=== PATIENT | female | born 1940 | race Caucasian/White ===

== ENCOUNTER 2017-04-16 20:57 | Inpatient (IN) | payer MEDICARE, BC ==
[2017-04-16] MEDS ORDERED: NS 0.9% 1000 ML*IV.FLUID IV ONE (21:10)
[2017-04-16] MEDS ORDERED: Piperacillin/Tazobac ADVAN(*) 3.375 GM in NS 0.9% 100 ML* 100 ML IVPB ONE (21:10)
[2017-04-16] MEDS ORDERED: Acetaminophen TAB* 325 MG PO ONE (21:15)
--- OUTSIDE RECORDS SUMMARY | 2017-04-16 21:18 | XMS REPORT ---
:1940 External Reference #:[id number] Author Organization [facility] Address [address] [place] [id number] Phone [phone] Care Team Providers Name Role Phone Daryl Ashford M.D. Primary Care Physician Unavailable Payers Type Date Identification Numbers Payment Provider Subscriber Medicare Primary Effective: Policy Number: Medicare - NGS Elisabeth Collins 2004 [id number] PayID: [id number] [address] [place] [address] Commercial Policy Number: [id number] [place] Plan Elisabeth Collins PayID: [id number] [address] [place] [address] Problems Date Description Provider Status Onset: Deep venous thrombosis Active Onset: Depressive disorder Active Onset: Type 2 diabetes mellitus Active Note: 1984 Onset: Hypercholesterolemia Active Onset: 02/18/2015 History of myocardial infarction Daryl Oreilly M.D. Active Note: 1998 Onset: 02/18/2015 Type 2 diabetes w prolif diabetic Daryl Oreilly M.D. Active rtnop w/o macular edema Onset: 02/18/2015 Presence of intraocular lens Daryl Oreilly M.D. Active Onset: 01/14/2016 Sjogren's syndrome Rhea Miranda, Active O.D. Onset: 01/26/2016 Keratoconjunctivitis sicca, not Rhea Miranda, Active specified as Sjogren's O.D. Onset: 01/26/2016 Diabetes with stable prolif diabetic Rhea Miranda, Active retinopathy, bilateral O.D. Onset: 08/07/2016 Type 2 diab with prolif diab rtnop Daryl Oreilly M.D. Active without macular edema, bi Onset: 02/26/2017 Vitreous hemorrhage Daryl Oreilly M.D. 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 Omeprazole 00/00/ Active Capsules 40mg Unknown [address] DR Furosemide 00/ Active Tablets 40mg Unknown 0000 Metoprolol 00/ Active Tablets 50mg Unknown Tartrate 0000 Aspirin / Active Tablets DR 81mg Unknown 0000 Klor-Con M20 00/ Active Tablets ER 20Meq Unknown 0000 Multi-Vitamin 00/ Active Tablets Unknown Daily 0000 Calcium 600 00// Active Tablets 600mg Unknown 0000 Sertraline HCL 00/ Active Tablets 50mg Unknown 0000 Probiotic 00/ Active Capsules Unknown 0000 Tylenol 8 Hour 00/ Active Tablets ER 650mg Unknown 0000 Lantus / Active Solution 100Unit/ML Unknown 0000 Atorvastatin 0000/ Active Tablets 80mg Breiman, Calcium 0000 Daryl Lazar Patanol 01/25/ Hx Solution 0.1% 5units Instill 1 H16.223 Rhea Kaminski 2015 - Drop Into [place], 01/04/ The O.D. 2016 Affected Eye(S) Twice A Day as Needed Maxitrol 01/13/ Hx Ointment 3.5-20986- 3.500g apply 04/26' M35.01 Rhea Kaminski 2015 - 0.1 m to all [place], 02/06/ lids every O.D. 2016 night at bedtime x 2 weeks Fondaparinux / Hx Solution 7.5mg/0.6M Unknown Sodium 0000 - L 2016 Niaspan / Hx Tablets ER 500mg Unknown 0000 - 10/16/ 2017 Lipitor / Hx Tablets 10mg Unknown 0000 - 2016 Nitrostat / Hx Tablets 0.4mg Unknown 0000 - Sub 2016 Hyoscyamine / Hx Tablets 0.125mg Breiman, Sulfate 0000 - Daryl 01/07/ Cady 2016 Medications Administered in Office Medication Date Status Form Strength Qnty SIG Indications Ordering Provider Avastin Administered Injection Daryl Kaminski Bevacizumab 017 Cady Oreilly Vital Signs Date Vital Result Comment 03/05/2017 BP Systolic 140 mmHg BP Diastolic 75 mmHg Heart Rate 68 /min Respiratory Rate 14 /min 02/26/2017 BP Systolic 143 mmHg BP Diastolic 83 mmHg Heart Rate 58 /min Respiratory Rate 15 /min 02/05/2017 BP Systolic 97 mmHg BP Diastolic 70 mmHg Heart Rate 60 /min Respiratory Rate 12 /min Results Description No Information Procedures Date CPT Code Description Status 03/05/2017 17572 Destruction Retinopathy, Photocoagulation Completed 02/26/2017 31241 Scanning Computerized Opthalmic Diagnostic Posterior Completed Seg Retina 02/26/2017 41572 Est Patient Intermediate Exam Completed 02/05/2017 23671 Injection Intravitreal Of A Pharmacologic Agent Completed 02/01/2017 53812 Est Patient Intermediate Exam Completed 01/11/2017 52573 Scanning Computerized Opthalmic Diagnostic Posterior Completed Seg Retina 01/11/2017 51420 Est Patient Comprehensive Exam Completed 08/07/2016 06578 Scanning Computerized Opthalmic Diagnostic Posterior Completed Seg Retina 08/07/2016 86212 Est Patient Comprehensive Exam Completed 01/26/2016 34295 Est Patient Intermediate Exam Completed 01/14/2016 19372 Est Patient Intermediate Exam Completed 08/20/2015 48724 Scanning Computerized Opthalmic Diagnostic Posterior Completed Seg Retina 08/20/2015 04401 Est Patient Comprehensive Exam Completed 02/18/2015 59123 Scanning Computerized Opthalmic Diagnostic Posterior Completed Seg Retina 02/18/2015 99158 Est Patient Comprehensive Exam Completed 06/19/2014 24191 Fundus Photography With Interpretation And Report Completed 06/19/2014 27515 Est Patient Comprehensive Exam Completed 12/17/2013 53203 Extracapsular Cataract Extraction W/Intraocular Lens Completed 12/10/2013 88545 Cataract Surgery Complex Completed 12/05/2013 75566 Ophthalmic Biometry Completed 12/05/2013 79003 Ophthalmic Biometry Completed 11/19/2013 94958 Est Patient Comprehensive Exam Completed 11/13/2012 50248 Determination Of Refractive State Completed 11/13/2012 83788 Est Patient Comprehensive Exam Completed 11/08/2011 16845 Determination Of Refractive State Completed 11/08/2011 95275 Est Patient Comprehensive Exam Completed 10/06/2010 34219 Determination Of Refractive State Completed 10/06/2010 27780 Est Patient Comprehensive Exam Completed 09/08/2009 28875 Est Patient Comprehensive Exam Completed 09/02/2008 06780 Est Patient Comprehensive Exam Completed 09/02/2008 40870 Determination Of Refractive State Completed 09/05/2007 41215 Determination Of Refractive State Completed 09/05/2007 14073 Est Patient Comprehensive Exam Completed 10/31/2006 99105 Determination Of Refractive State Completed 10/31/2006 63995 Est Patient Comprehensive Exam Completed 10/05/2005 89800 Cancelled Appointment Completed 09/21/2004 95874 Determination Of Refractive State Completed 09/21/2004 78245 Est Patient Comprehensive Exam Completed 02/03/2004 36112 Est Patient Intermediate Exam Completed 08/12/2003 77072 Est Patient Comprehensive Exam Completed Encounters Type Date Location Provider CPT E/M Dx Office Visit 12/05/2013 11:00a Daryl Oreilly MD, Daryl Oreilly, [id number] 366.16 pc Cady 366.16 Office Visit 06/28/2005 8:00a Daryl Oreilly MD, Hernando Lambert M.D. 34540 250.50 pc 362.01 Plan of Care 03/19/2017 - Daryl Oreilly M.D.H43.11 Vitreous hemorrhage, right eyeFollow up :3 Month Follow Up You can expect to have your eyes dilated at your next visit. If Dr. Oreilly orders any additional testing, it may require extra time. We recommend that you bring sunglasses, as dilation drops often make you light sensitive until they wear off. We always recommend you bring someone to drive you home if you are uncomfortable driving with your eyes dilated. If you have any questions before your next visit, feel free to call our office at .
[2017-04-16] MEDS ORDERED: NS 0.9% 1000 ML* 1,000 ML IV ONE (21:28)
[2017-04-16 21:54] LABS: ABS Basophils 0.2 10^3/ul (0-0.2); ABS Eosinophils 0 10^3/ul (0-0.6); ABS Lymphocytes 0.4 10^3/ul (1.0-4.8); ABS Monocytes 0.5 10^3/ul (0-0.8); ABS Neutrophils 15.4 10^3/ul (1.5-7.7); ABS Nucleated RBC 0.01 10^3/ul; Eosinophil % 0.1 % (0-6); Hematocrit 37 % (35-47); Hemoglobin 12.3 g/dl (12.0-16.0); Lymphocyte % 2.6 % (25-47); Mean Corpuscular HGB Conc 33 g/dl (31-36); Mean Corpuscular Hemoglobin 31 pg (27-31); Mean Corpuscular Volume 92 fL (80-97); Mean Platelet Volume 9 um3 (7.4-10.4); Nucleated Red Blood Cells % 0; Platelet Count 100 10^3/ul (150-450); Red Blood Count 3.99 10^6/ul (4.0-5.4); Red Cell Distribution Width 14 % (10.5-15); White Blood Count 16.5 10^3/ul (3.5-10.8)
[2017-04-16 22:06] LABS: INR 1.05 (0.77-1.02)
[2017-04-16 22:07] LABS: EGFR Non-African American 66.1 (>60)
--- NOTE | 2017-04-16 22:14 | RAD ---
INDICATION: Fever. COMPARISON: Comparison is made with a prior chest x-ray study from September 05, 2015. TECHNIQUE: A portable view of the chest was obtained. FINDINGS: The patient appears to be status post coronary artery bypass surgery. There is a multilead transvenous pacemaker present. The heart is within normal limits in size. The lungs are underinflated and clear with more focal elevation of the left hemidiaphragm which is unchanged. No pleural effusion is seen. IMPRESSION: 1. POSTSURGICAL CHANGES. 2. NO EVIDENCE FOR ACUTE DISEASE.
[2017-04-16 22:49] LABS: Urine Appearance Clear; Urine Blood Negative (Negative); Urine Color Yellow; Urine Ketones Negative (Negative); Urine Protein Negative (Negative); Urine Specific Gravity 1.014 (1.010-1.030); Urine Urobilinogen Negative (Negative)
[2017-04-16] MEDS ORDERED: Iodixanol* (CONTRAST) 320 MG/ML 100 ML SDV IV ONE (23:02)
[2017-04-17] MEDS ORDERED: NS 0.9% 1000 ML* 1,000 ML IV ONE (01:15)
[2017-04-17] MEDS ORDERED: metroNIDAZOLE TAB* 250 MG PO ONE (01:16)
--- NOTE | 2017-04-17 01:21 | ED ---
Ant Moise Thomas, scribed for Kalie Mullins MD on 04/16/17 at 2111 . HPI Febrile Illness - HPI Summary HPI Summary: The patient is a 76 year old female with a history of DM brought in by ambulance complaining of a fever at 102 that began this afternoon. Patient additionally complains of generalized malaise, diffuse abdominal pain (2/10), shakiness, and inability to ambulate. Today, the patient ate ham, turkey, mashed potatoes, and apple pie. Patient denies diarrhea and vomiting. The patient did not take any Tylenol or Motrin prior to arrival. - History of Current Complaint Chief Complaint: EDAbdPain Hx Obtained From: Patient Hx Last Menstrual Period: N/A Onset/Duration: Started Hours Ago - onset this afternoon, Still Present Timing: Constant Temperature: 102 F - prior to arrival Current Severity: Mild Pain Intensity: 2 Pain Scale Used: 0-10 Numeric Aggravating Factors: Nothing Alleviating Factors: Nothing Associated Signs and Symptoms: Other: - Fever, generalized malaise, diffuse abdominal pain, shakiness, inability to ambulate; NEGATIVE: vomiting, diarrhea - Allergy/Home Medications Allergies/Adverse Reactions: Allergies Allergy/AdvReac Type Severity Reaction Status Date / Time PACEMAKER AND DEFIBRILATOR Allergy MRI Uncoded 10/01/15 18:30 CONTRINDICATED Home Medications: Home Medications Insulin Glargine [Lantus] 27 unit SUBCUT BEDTIME 04/16/17 [History Confirmed ] Lactobacillus [Probiotic] 1 cap PO BID 04/16/17 [History Confirmed 04/16/17] Sertraline HCl [Zoloft] 50 mg PO DAILY 04/16/17 [History Confirmed 04/16/17] PMH/Surg Hx/FS Hx/Imm Hx Previously Healthy: No Endocrine/Hematology History: Reports: Hx Anticoagulant Therapy - arixtra, Hx Diabetes Denies: Hx Thyroid Disease Cardiovascular History: Reports: Hx Auto Implanted Cardiovert Defib, Hx Cardiac Arrest, Hx Coronary Artery Disease, Hx Deep Vein Thrombosis, Hx Hypercholesterolemia, Hx Hypertension, Hx Pacemaker/ICD, Hx Peripheral Vascular Disease, Other Cardiovascular Problems/Disorders Denies: Hx Congestive Heart Failure Respiratory History: Denies: Other Respiratory Problems/Disorders History: Reports: Hx Kidney Stones - IN THE PAST Denies: Hx Renal Disease Musculoskeletal History: Reports: Hx Arthritis Sensory History: Reports: Hx Contacts or Glasses - Glasses, Hx Hearing Problem - Bilateral hearing loss Denies: Hx Hearing Aid Opthamlomology History: Reports: Hx Contacts or Glasses - Glasses Neurological History: Denies: Hx Dementia, Hx Developmental Delay, Hx Headaches Psychiatric History: Reports: Hx Anxiety, Hx Depression - Cancer History Hx Chemotherapy: No Hx Radiation Therapy: No - Surgical History Surgery Procedure, Year, and Place: pacer;. cabg'99;. right leg bypass;. c section;. cholecystectomy; Hx Anesthesia Reactions: No Infectious Disease History: No Infectious Disease History: Reports: Hx Hepatitis - At age 19 Denies: Traveled Outside the [place] in Last 30 Days - Family History Known Family History: Positive: Other - Patient denies relevant FHx - Social History Lives: With Family Alcohol Use: None Substance Use Type: Reports: None Smoking Status (MU): Former Smoker Type: Cigarettes Amount Used/How Often: 1-2 PPD Length of Time of Smoking/Using Tobacco: 39 YEARS Have You Smoked in the Last Year: No Review of Systems Positive: Fever, Other - Generalized malaise Positive: Abdominal Pain - diffuse. Negative: Vomiting, Nausea Neurological: Other - Shakiness, inability to ambulate All Other Systems Reviewed And Are Negative: Yes Physical Exam - Summary Physical Exam Summary: VITAL SIGNS: Reviewed. GENERAL: Patient is an obese who is lying comfortable in the stretcher. Patient is not in any acute respiratory distress. HEAD AND FACE: No signs of trauma. No ecchymosis, hematomas or skull depressions. No sinus tenderness. EYES: PERRLA, EOMI x 2, No injected conjunctiva, no nystagmus. EARS: Hearing grossly intact. Ear canals and tympanic membranes are within normal limits. MOUTH: Oropharynx within normal limits. NECK: Supple, trachea is midline, no adenopathy, no JVD, no carotid bruit, no c- spine tenderness, neck with full ROM. CHEST: Symmetric, no tenderness at palpation LUNGS: Clear to auscultation bilaterally. No wheezing or crackles. CVS: Regular rate and rhythm, S1 and S2 present, no murmurs or gallops appreciated. ABDOMEN: Soft. She has mild diffuse abdominal tenderness. She has hyperactive bowel sounds. No signs of distention. No rebound no guarding, and no masses palpated. EXTREMITIES: FROM in all major joints, no edema, no cyanosis or clubbing. NEURO: Alert and oriented x 3. No acute neurological deficits. Speech is normal and follows commands. SKIN: Dry and warm Triage Information Reviewed: Yes Vital Signs On Initial Exam: Initial Vitals Temp Pulse Resp BP Pulse Ox 100.3 F 83 16 134/67 100 04/16/17 21:00 04/16/17 21:00 04/16/17 21:00 04/16/17 21:00 04/16/17 21:00 Vital Signs Reviewed: Yes Diagnostics - Vital Signs Vital Signs Temp Pulse Resp BP Pulse Ox 04/16/17 21:00 100.3 F 83 16 134/67 100 - Laboratory Result Diagrams: 04/16/17 21:35 04/16/17 21:35 Lab Statement: Any lab studies that have been ordered have been reviewed, and results considered in the medical decision making process. - Radiology CXR Xray Interpretation: No Acute Changes - 1. POSTSURGICAL CHANGES. 2. NO EVIDENCE FOR ACUTE DISEASE. Dr. Mullins has viewed this report. Radiology Interpretation Completed By: Radiologist - CT CT Abd/Pel CT Interpretation: No Acute Changes - Moderately dilated stomach containing air , fluid and ingested material. No bowel obstruction, colitis, free fluid or free air. Appendix not seen. Diverticulosis colon without acute diverticulitis. Unremarkable pancreas and kidneys. Cholecystectomy. 1.8 cm diameters proximal right superficial femoral artery, question fusiform aneurysm versus vascular graft; nearby surgical clips and inguinal lymph nodes less than 1 cm short axis. Small supraumbilical ventral hernia containing fat. Small right ilioposoas bursal fluid collection, 4.3 x 1.8 x 1.3. Liver dome incompletely seen. AICD. Elevation right hemidiaphragm. Dr. Mullins has reviewed this report. CT Interpretation Completed By: Radiologist Course/Dx - Course Assessment/Plan: The patient is a 76 year old female with a history of DM brought in by ambulance complaining of a fever at 102 that began this afternoon. Patient additionally complains of generalized malaise, diffuse abdominal pain (2/10), shakiness, and inability to ambulate. She has mild diffuse abdominal tenderness. In the ED course the patient was given acetaminophen, IV fluids, and Zosyn. Bloodwork and urinalysis were obtained. The patient has a history of CHF with cardiomyopathy, so we are only going to give her 1 L of normal saline. The patient is hemodynamically stable. CT Abd/ Pel shows Moderately dilated stomach containing air, fluid and ingested material. No bowel obstruction, colitis, free fluid or free air. Appendix not seen. Diverticulosis colon without acute diverticulitis. Unremarkable pancreas and kidneys. Cholecystectomy. 1.8 cm diameters proximal right superficial femoral artery, question fusiform aneurysm versus vascular graft; nearby surgical clips and inguinal lymph nodes less than 1 cm short axis. Small supraumbilical ventral hernia containing fat. Small right ilioposoas bursal fluid collection, 4.3 x 1.8 x 1.3. Liver dome incompletely seen. AICD. Elevation right hemidiaphragm. CXR shows 1. POSTSURGICAL CHANGES. 2. NO EVIDENCE FOR ACUTE DISEASE. The patient is diagnosed with gastroenteritis, hypotension. The patient will be admitted to [facility] by Dr. Atkins. - Diagnoses Provider Diagnoses: Gastroenteritis, Hypotension - Provider Notifications Discussed Care Of Patient With: Ander Atkins Time Discussed With Above Provider: 01:18 Instructed by Provider To: Admit As Inpatient Discharge - Discharge Plan Condition: Fair Disposition: ADMITTED TO [facility] Referrals: Daryl Ashford MD [Primary Care Provider] - The documentation as recorded by the Ant kim Thomas accurately reflects the service I personally performed and the decisions made by , Kalie Mullins MD.
[2017-04-17] MEDS ORDERED: Ondansetron INJ* 2 MG/ML VIAL IV PRN (01:51)
--- NOTE | 2017-04-17 05:12 | HP ---
ADMISSION HISTORY AND PHYSICAL: DATE OF ADMISSION: 04/17/17 PRIMARY CARE PROVIDER: Dr. Ashford. HEALTHCARE PROXY: Her . CODE STATUS: Full. SOURCE OF INFORMATION: History obtained from interview with the patient and her . RELIABILITY: Fair. CHIEF COMPLAINT: Weakness. HISTORY OF PRESENT ILLNESS: This is a 76-year-old female with significant past medical history including 3-vessel CAD, insulin-dependent diabetes mellitus and DVT, currently on anticoagulation with Arixtra, who has been in her usual state of health, generally walks unassisted, went to her daughter's house for Lukas; however, this evening around 5:30 p.m., found that she could not get up from the couch and after standing had difficulty ambulating secondary to weakness. There is no reported confusion or slurring of her speech, no asymmetric nature to the weakness; however, generally felt fatigued. She notes that she had shaking chills, although no recorded fevers, nausea without emesis , no recent cough, shortness of breath, chest pain, headache, or urinary symptoms. She has had no sick contacts and no recent travel. She notes that about a week ago she had 1 episode of diarrhea that then resolved. Two weeks ago, she had a groin infection that improved with topical treatment. She notes the recent addition of medications for her thyroid to her current medication regimen. Otherwise, no changes to her medications. She notes she has been eating and drinking fine. Her last bowel movement was this morning. She had noted no blood in her bowel movements and no black stools. In the emergency room, she received a dose of Zosyn and 1 L of IV fluids. However, her blood pressure was noted to be progressively more hypotensive over the course of her stay. The hospitalist service was consulted for admission. PAST MEDICAL HISTORY: 1. History of permanent pacemaker and AICD. 2. History of V-tach. 3. Two-vessel CABG in 1998. 4. Peripheral vascular disease, status post distal right femoral bypass. 5. Insulin-dependent diabetes mellitus. 6. Ischemic cardiomyopathy. 7. Hypertension. 8. Right lower extremity DVT approximately 5 to 6 years prior. 9. Depression. 10. Percutaneous intervention with a stent to unknown coronary in 2004. 11. Cataract surgery. 12. Recent diagnosis of thyroid "problem," suspected to be hypothyroidism, started on new medication. SOCIAL HISTORY: Quit tobacco in 1998. Smoked a pack and a half for 30 years. No alcohol. Retired, worked at [employer] for 35 years. FAMILY HISTORY: Father with type 2 diabetes, mother with CAD, sister with hypertension and hyperlipidemia. ALLERGIES: No known drug allergies. MEDICATIONS: 1. Thyroid medication unknown, to call medications to the floor this evening after returning home. 2. Probiotic 1 cap twice daily. 3. Zoloft 50 mg daily. 4. Potassium chloride 40 ___meq___ 3 times daily. 5. Omeprazole 40 mg daily. 6. Multivitamin 1 tab daily. 7. Metoprolol 50 mg twice daily. 8. Lantus 27 units in the evening and 30 units in the morning. 9. Hyoscyamine 125 mg 3 times a day. 10. Lasix 80 mg in the morning. 11. Arixtra 7.5 mg subcutaneously daily. 12. Calcium carbonate 600 mg twice daily. 13. Atorvastatin 80 mg in the evening. 14. Aspirin 81 mg daily. 15. Acetaminophen 1000 mg at bedtime. REVIEW OF SYSTEMS: As per HPI, including sudden onset of fatigue and chills with nausea, episode of diarrhea 1 week prior, suspected fungal skin infection in her groin, addition of new medication, otherwise, other systems negative. PHYSICAL EXAMINATION GENERAL: Obese woman, sitting up in bed, interactive, pleasant, no apparent distress, slightly upset about admission to the hospital/disappointed because it is [place]. VITAL SIGNS: When seen by this author, 81/48, heart rate 80, respiratory rate is 12, 96% on room air, T-max in the emergency room is 100.3. HEENT: Oropharynx is clear. She has moist mucous membranes. Her sclerae are anicteric. NECK: She has non-elevated JVD. She had no cervical or supraclavicular lymphadenopathy. LUNGS: Her lungs are clear to auscultation. HEART: She has 2/6 systolic ejection murmur throughout her precordium. ABDOMEN: Her abdomen is soft, nondistended. Tender to palpation throughout, greatest in the midepigastrium and left upper quadrant. EXTREMITIES: Warm and well perfused. She has 1+ lower extremity edema. NEUROLOGIC: She is alert and oriented x3. Her cranial nerves II through XII are intact. PSYCH: She has no apparent anxiety, agitation or depression. DIAGNOSTIC STUDIES/LAB DATA: Data reviewed. CT abdomen and pelvis, prelim read overnight, elevated right hemidiaphragm; status post cholecystectomy; small supraumbilical ventral hernia containing fat; small iliopsoas bursa fluid collection; moderately dilated stomach containing air, fluid, ingested material. No bowel obstruction, colitis, free fluid or free air. Appendix not seen. Diverticulosis, without acute diverticulitis. EKG, left bundle-branch block, unchanged from prior. Chest x-ray, no cardiopulmonary disease, elevated right hemidiaphragm. ASSESSMENT AND PLAN: This is a 76-year-old female with past medical history as outlined above, presenting with sudden onset of weakness associated with chills , leukocytosis and declining blood pressure in the emergency room. 1. Leukocytosis. Received Zosyn in the emergency room. We will continue ceftriaxone empirically until blood cultures are negative. Blood cultures obtained prior to the antibiotics. Recheck CBC in the morning. Lactic acid pending currently. No clear source for active infection including lungs, abdomen, pelvis, urine or skin. Did have low-grade fever, doubt influenza in the absence of cough, myalgias, or continued high fevers. Incidentally noted right iliopsoas bursal fluid collection without associated symptoms. Can be further interrogated in the morning and discussed with Radiology with official read. 2. Abdominal pain with distended abdomen, potentially gastroparesis in the setting of longstanding diabetes, unclear if this is incidental with this type, time. Add on amylase and lipase to ED labs. 3. New thyroid illness. Follow up for PCP records. Check TSH now. 4. Relative hypotension. Continue fluids carefully in the setting of ischemic cardiomyopathy, bolus as needed. Lactic acid pending. The patient is asymptomatic. No evidence of cardiac etiology. PE seems unlikely on full dose anticoagulation. No evidence of active bleeding. Does not seem hypovolemic in the setting of unchanged medications. Treat as indicated and monitor. 5. Type 2 diabetes. Continue insulin. Has not received sliding scale at home , we will hold for now. We will check fingersticks with meals. Can add sliding scale if required. 6. History of DVT, on Arixtra. 7. DVT prophylaxis on Arixtra. [id number]/[facility] #: [id number] [facility]
[2017-04-17 06:47] LABS: ABS Basophils 0 10^3/ul (0-0.2); ABS Eosinophils 0 10^3/ul (0-0.6); ABS Lymphocytes 0.7 10^3/ul (1.0-4.8); ABS Monocytes 0.7 10^3/ul (0-0.8); ABS Neutrophils 16.4 10^3/ul (1.5-7.7); ABS Nucleated RBC 0 10^3/ul; Eosinophil % 0 % (0-6); Hematocrit 32 % (35-47); Hemoglobin 10.5 g/dl (12.0-16.0); Mean Corpuscular HGB Conc 33 g/dl (31-36); Mean Corpuscular Hemoglobin 31 pg (27-31); Mean Corpuscular Volume 93 fL (80-97); Mean Platelet Volume 9 um3 (7.4-10.4); Nucleated Red Blood Cells % 0; Platelet Count 75 10^3/ul (150-450); Red Blood Count 3.44 10^6/ul (4.0-5.4); Red Cell Distribution Width 14 % (10.5-15); White Blood Count 17.8 10^3/ul (3.5-10.8)
[2017-04-17 07:01] LABS: EGFR Non-African American 74.2 (>60)
[2017-04-17] MEDS: Acetaminophen TAB* 325 MG PO PRN ×2 (07:41→21:43)
[2017-04-17] MEDS: Omeprazole CAP* 20 MG PO SCH (07:41)
[2017-04-17] MEDS: cefTRIAXone(*) 1 GM in D5W 50 ML BAG* 50 ML IVPB SCH (07:48)
--- NOTE | 2017-04-17 08:27 | RAD ---
INDICATION: Abdominal pain. Contrast: Administered 110.4 ml of VISIPAQUE 320 mg/ml CT of the abdomen and pelvis was performed after oral or IV contrast administration. Coronal and sagittal reconstructed images were obtained. Comparison is made with previous exam dated October 02, 2011. Lung bases demonstrate no pleural fluid, nodules or masses. Heart is of normal size without evidence of pericardial effusion. Liver is normal in size. No focal lesions or intrahepatic duct dilatation is noted. The pancreas demonstrates no mass or pancreatic duct dilatation although it appears to be atrophic. The spleen is normal in size. The stomach is markedly distended. There are no dilated loops of small bowel noted. No adrenal lesions are noted. The kidneys demonstrate symmetric nephrograms. Small cortical cysts are noted; however, no hydronephrosis is noted in either kidney. Several parapelvic cysts are noted. Atherosclerotic aorta is noted. No dilated loops of bowel are noted. The colon is filled with stool. Atherosclerotic aorta is noted. Mild fusiform dilatation of the right common iliac artery is noted. No dilated loops of bowel are noted. IMPRESSION: Markedly distended stomach. No dilated loops of bowel are noted.
[2017-04-17] MEDS: Metoprolol Tartrate TAB* 50 mg PO SCH ×2 (09:42→21:39)
[2017-04-17] MEDS: Lactobacillus Acidophilu (GG)* 1 CAP CAP PO SCH ×2 (09:42→21:40)
[2017-04-17] MEDS: Sertraline* 50 MG TAB PO SCH (09:42)
[2017-04-17] MEDS: Hyoscyamine TAB* 0.125 MG PO SCH ×3 (09:42→21:40)
[2017-04-17] MEDS: Insulin GLARGINE(*) 1 UNITS UNIT SUBCUT SCH ×2 (09:43→21:29)
[2017-04-17] MEDS: Potassium Chlor TAB* 20 MEQ TAB.ER PO SCH ×3 (09:43→21:41)
[2017-04-17] MEDS: Aspirin EC Low Dose* 81 MG TAB.EC PO SCH (09:43)
[2017-04-17] MEDS: Fondaparinux* 7.5 MG/0.6 ML SYRINGE SUBCUT SCH (09:44)
[2017-04-17] MEDS ORDERED: Vancomycin(*) 1,000 MG in D5W 250 ML BAG* 250 ML IVPB ONE (12:00)
[2017-04-17] MEDS ORDERED: Vancomycin(*) 1,000 MG in NS 0.9% 250 ML* 250 ML IVPB ONE (12:00)
--- NOTE | 2017-04-17 14:28 | PN ---
Subjective Date of Service: 04/17/17 Interval History: Pt had epigastric pain , nausea, but no vomiting and no diarrhea on during dinner, all symptoms resolved Objective Active Medications: Acetaminophen (Tylenol Tab*) 650 mg PO Q4H PRN PRN Reason: FEVER/PAIN Last Admin: 04/17/17 07:41 Dose: 650 mg Aspirin (Aspirin Ec Low Dose*) 81 mg PO DAILY [facility] Last Admin: 04/17/17 09:43 Dose: 81 mg Atorvastatin Calcium (Lipitor*) 80 mg PO BEDTIME [facility] Fondaparinux (Arixtra*) 7.5 mg SUBCUT DAILY [facility] Last Admin: 04/17/17 09:44 Dose: 7.5 mg Hyoscyamine (Anaspaz Tab*) 0.125 mg PO TID [facility] Last Admin: 04/17/17 13:06 Dose: 0.125 mg Ceftriaxone Sodium 1 gm/ (Dextrose) 50 mls @ 200 mls/hr IVPB Q24H [facility] Last Admin: 04/17/17 07:48 Dose: 200 mls/hr Insulin Glargine (Lantus(*)) 27 units SUBCUT BEDTIME [facility] Insulin Glargine (Lantus(*)) 30 units SUBCUT QAM [facility] Last Admin: 04/17/17 09:43 Dose: 30 units Lactobacillus Rhamnosus (Culturelle*) 1 cap PO BID [facility] Last Admin: 04/17/17 09:42 Dose: 1 cap Metoprolol Tartrate (Lopressor Tab*) 50 mg PO BID [facility] Last Admin: 04/17/17 09:42 Dose: 50 mg Omeprazole (Prilosec Cap*) 40 mg PO DAILY@0730 [facility] Last Admin: 04/17/17 07:41 Dose: 40 mg Ondansetron HCl (Zofran Inj*) 4 mg IV Q4H PRN PRN Reason: NAUSEA/VOMITING Potassium Chloride (Klor Con Er Tab*) 40 meq PO TID [facility] Last Admin: 04/17/17 13:06 Dose: 40 meq Sertraline HCl (Zoloft*) 50 mg PO DAILY [facility] Last Admin: 04/17/17 09:42 Dose: 50 mg Vital Signs - 8 hr 04/17/17 04/17/17 04/17/17 07:33 09:42 11:45 Temperature 98.1 F 97.6 F Pulse Rate 63 53 Respiratory 16 16 16 Rate Blood Pressure 119/48 114/56 (mmHg) O2 Sat by Pulse 100 100 Oximetry 04/17/17 04/17/17 13:06 13:07 Temperature Pulse Rate Respiratory 16 16 Rate Blood Pressure (mmHg) O2 Sat by Pulse Oximetry Oxygen Devices in Use Now: None Appearance: 76 yo f in nAD, aAOx3 Eyes: No Scleral Icterus, PERRLA Ears/Nose/Mouth/Throat: NL Teeth, Lips, Gums, Mucous Membranes Moist Neck: NL Appearance and Movements; NL JVP, Trachea Midline Respiratory: Symmetrical Chest Expansion and Respiratory Effort, Clear to Auscultation Cardiovascular: NL Sounds; No Murmurs; No JVD, RRR Abdominal: NL Sounds; No Tenderness; No Distention, No Hepatosplenomegaly Lymphatic: No Cervical Adenopathy Extremities: No Edema, No Clubbing, Cyanosis Skin: No Rash or Ulcers, No Nodules or Sclerosis Neurological: Alert and Oriented x 3, NL Muscle Strength and Tone Result Diagrams: 04/17/17 05:59 04/17/17 05:59 Assess/Plan/Problems-Billing Assessment: 76 yo f with h/o cardiomyopathy, V. Tach, s/p ICD/pacer, CABG, DVT ( on Arixtra), DM, PVD(s/p femoral bypass), R ICA stenosis >70% presents with a episode of generalized weakness, nausea, epigastric pain, no vomiting, no diarrhea - Patient Problems (1) Epigastric pain Comment: and nausea resolved. It possible that pt feelt weak from gastric distention that was noted on CT and increased vagal tone due to it. Blood cx are positive and although it could be contamination, pt has h/o ICD and pacer and will be monitored on empiric Ceftriaxone till tomorow when cx results are fully reported (2) History of ischemic cardiomyopathy Comment: will restart pt's Lasix for aM (3) Hx of deep venous thrombosis Comment: cont Arixtra (4) Hx of type 2 diabetes mellitus Comment: cont Lantus and ISS (5) DVT prophylaxis Comment: Arixtra Status and Disposition: OBV
[2017-04-17] MEDS ORDERED: Dextrose 50% Syringe 50 ML* 25 GM/50 ML SYRINGE IV PUSH PRN (15:01)
[2017-04-17] MEDS: Insulin LISPRO* 1 UNITS UNIT SUBCUT SCH ×2 (17:03→21:31)
[2017-04-17] MEDS: Atorvastatin* 80 MG TAB PO SCH (21:41)
[2017-04-18 06:27] LABS: Hematocrit 34 % (35-47); Hemoglobin 11.2 g/dl (12.0-16.0); Mean Corpuscular HGB Conc 33 g/dl (31-36); Mean Corpuscular Hemoglobin 31 pg (27-31); Mean Corpuscular Volume 93 fL (80-97); Mean Platelet Volume 9 um3 (7.4-10.4); Platelet Count 67 10^3/ul (150-450); Red Blood Count 3.64 10^6/ul (4.0-5.4); Red Cell Distribution Width 14 % (10.5-15); White Blood Count 10.3 10^3/ul (3.5-10.8)
[2017-04-18 06:55] LABS: EGFR Non-African American 101.3 (>60)
[2017-04-18] MEDS: Insulin LISPRO* 1 UNITS UNIT SUBCUT SCH ×4 (07:49→20:46)
[2017-04-18] MEDS: Omeprazole CAP* 20 MG PO SCH (08:02)
[2017-04-18] MEDS: cefTRIAXone(*) 1 GM in D5W 50 ML BAG* 50 ML IVPB SCH (08:02)
[2017-04-18] MEDS: Lactobacillus Acidophilu (GG)* 1 CAP CAP PO SCH ×2 (10:27→20:51)
[2017-04-18] MEDS: Metoprolol Tartrate TAB* 50 mg PO SCH ×2 (10:27→20:50)
[2017-04-18] MEDS: Aspirin EC Low Dose* 81 MG TAB.EC PO SCH (10:27)
[2017-04-18] MEDS: Furosemide TAB* 40 MG PO SCH (10:27)
[2017-04-18] MEDS: Insulin GLARGINE(*) 1 UNITS UNIT SUBCUT SCH ×2 (10:28→20:46)
[2017-04-18] MEDS: Fondaparinux* 7.5 MG/0.6 ML SYRINGE SUBCUT SCH (10:28)
[2017-04-18] MEDS: Sertraline* 50 MG TAB PO SCH (10:28)
[2017-04-18] MEDS: Potassium Chlor TAB* 20 MEQ TAB.ER PO SCH ×3 (10:28→20:51)
[2017-04-18] MEDS: Hyoscyamine TAB* 0.125 MG PO SCH ×3 (10:28→20:50)
--- NOTE | 2017-04-18 13:44 | PN ---
Subjective Date of Service: 04/18/17 Interval History: Pt is feeling well. She has no complaints today. She denies any pain or SOB. Family History: Unchanged from Admission Social History: Unchanged from Admission Past Medical History: Unchanged from Admission Objective Active Medications: Acetaminophen (Tylenol Tab*) 650 mg PO Q4H PRN PRN Reason: FEVER/PAIN Last Admin: 04/17/17 21:43 Dose: 650 mg Aspirin (Aspirin Ec Low Dose*) 81 mg PO DAILY [facility] Last Admin: 04/18/17 10:27 Dose: 81 mg Atorvastatin Calcium (Lipitor*) 80 mg PO BEDTIME [facility] Last Admin: 04/17/17 21:41 Dose: 80 mg Dextrose (D50w Syringe 50 Ml*) 12.5 gm IV PUSH .FOR FS < 60 - SS PRN PRN Reason: FS < 60 Fondaparinux (Arixtra*) 7.5 mg SUBCUT DAILY [facility] Last Admin: 04/18/17 10:28 Dose: 7.5 mg Furosemide (Lasix Tab*) 80 mg PO QAM [facility] Last Admin: 04/18/17 10:27 Dose: 80 mg Hyoscyamine (Anaspaz Tab*) 0.125 mg PO TID [facility] Last Admin: 04/18/17 13:17 Dose: 0.125 mg Ceftriaxone Sodium 1 gm/ (Sodium Chloride) 50 mls @ 200 mls/hr IVPB 0800 [facility] Insulin Glargine (Lantus(*)) 27 units SUBCUT BEDTIME [facility] Last Admin: 04/17/17 21:29 Dose: 27 unit Insulin Glargine (Lantus(*)) 30 units SUBCUT QAM [facility] Last Admin: 04/18/17 10:28 Dose: 30 units Insulin Human Lispro (Humalog*) 0 units SUBCUT ACHS [facility] PRN Reason: Protocol Last Admin: 04/18/17 12:18 Dose: Not Given Lactobacillus Rhamnosus (Culturelle*) 1 cap PO BID [facility] Last Admin: 04/18/17 10:27 Dose: 1 cap Metoprolol Tartrate (Lopressor Tab*) 50 mg PO BID [facility] Last Admin: 04/18/17 10:27 Dose: 50 mg Omeprazole (Prilosec Cap*) 40 mg PO DAILY@0730 [facility] Last Admin: 04/18/17 08:02 Dose: 40 mg Ondansetron HCl (Zofran Inj*) 4 mg IV Q4H PRN PRN Reason: NAUSEA/VOMITING Potassium Chloride (Klor Con Er Tab*) 40 meq PO TID [facility] Last Admin: 04/18/17 13:17 Dose: 40 meq Sertraline HCl (Zoloft*) 50 mg PO DAILY [facility] Last Admin: 04/18/17 10:28 Dose: 50 mg Vital Signs - 8 hr 04/18/17 04/18/17 04/18/17 10:28 12:19 13:17 Respiratory 16 16 16 Rate Oxygen Devices in Use Now: None Appearance: Elderly female sitting in a chair, NAD Eyes: No Scleral Icterus Ears/Nose/Mouth/Throat: Mucous Membranes Moist Respiratory: Symmetrical Chest Expansion and Respiratory Effort, Clear to Auscultation - with few bibasilar crackles Cardiovascular: RRR, No Edema, - - II/ systolic murmur Abdominal: NL Sounds; No Tenderness; No Distention Extremities: No Clubbing, Cyanosis Skin: No Rash or Ulcers, No Nodules or Sclerosis Neurological: Alert and Oriented x 3 Result Diagrams: 04/18/17 06:00 04/18/17 06:00 Assess/Plan/Problems-Billing Dennis is a 76 yo F with a h/o cardiomyopathy, VTach s/p ICD/pacer, CAD, DVT ( on Arixtra), DM, PVD(s/p femoral bypass), R ICA stenosis >70% presents with a episode of generalized weakness, nausea and epigastric pain. - Patient Problems (1) Bacteremia due to group B Streptococcus Current Visit: Yes Status: Acute Code(s): R78.81 - BACTEREMIA SNOMED Code( s): 477871598435 Comment: The patient has 4 of 4 bottles positive for group B strep. ? if secondary to skin infection from a couple weeks ago. Will continue ceftriaxone for now. WBC count has normalized. Will get TTE today and ask for ID consult. Follow up blood cultures tomorrow AM. (2) Type II diabetes mellitus Current Visit: Yes Status: Acute Comment: Sugars are under excellent control. Continue current medication regimen. (3) HTN (hypertension) Current Visit: Yes Status: Acute Code(s): I10 - ESSENTIAL (PRIMARY) HYPERTENSION SNOMED Code(s): 45850232 Comment: BP is under fair control. Continue home dose of metoprolol. (4) History of ischemic cardiomyopathy Current Visit: Yes Status: Chronic Priority: Medium Code(s): Z98.89 - OTHER SPECIFIED POSTPROCEDURAL STATES * DO NOT USE * SNOMED Code(s): 963813385 Comment: Continue lasix. No signs of fluid overload. (5) CAD (coronary artery disease) Current Visit: Yes Status: Acute Code(s): I25.10 - ATHSCL HEART DISEASE OF [place] CORONARY ARTERY W/O ANG PCTRS SNOMED Code(s): 23651942 Comment: No c/o chest pain. Continue metoprolol, ASA and lipitor. (6) Hx of deep venous thrombosis Current Visit: Yes Status: Chronic Priority: Low Code(s): Z86.718 - PERSONAL HISTORY OF OTHER VENOUS THROMBOSIS AND EMBOLISM SNOMED Code(s): 808135486 Comment: Continue Arixtra. (7) DVT prophylaxis Current Visit: Yes Status: Acute Onset Date: 07/05/14 Code(s): FCY0313 - SNOMED Code(s): 936270356 Comment: Arixtra (8) Full code status Current Visit: Yes Status: Acute Priority: Medium Onset Date: 07/05/14 Code(s): Z78.9 - OTHER SPECIFIED HEALTH STATUS SNOMED Code(s): 034385975 Status and Disposition: .
[2017-04-18] MEDS: Nystatin CREAM* 15 GM TUBE TOPICAL SCH ×2 (15:47→20:52)
--- NOTE | 2017-04-18 16:38 | ECHO ---
Patient: JERSON MADRIGAL [facility] Rec#: [id number] : 1940 Date: 04/18/2017 Age: 76y Height: 165.1 cm / 65.0 in Weight: 90.72 kg / 199.9 lbs Sex: F BSA: 1.98 Room#: 401 Admit Date#: 04/18/2017 Type: Inpatient Referring: Abril Adhikari DO Reading: Johanny Barba MD Support Analyst: Melissa Hearn YONI CC: Daryl Ashford MD Transthoracic Echocardiogram Indication: Bacteremia BP: 143/52 HR: 68 Rhythm: NSR Findings History: CAD,s/p CABG,s/p AICD,PVD,ischemic cardiomyopathy,2/6 systolic murmur,HTN,s/p PCI. Current + blood cultures Strep Agalactiae. Technical Comments: The study quality is good. Completed at 1455. Left Ventricle: The left ventricular chamber size is normal. Septal wall hypertrophy is observed. There is global hypokinesis of the left ventricle with minor regional variation. There is moderately decreased left ventricular systolic function. The estimated ejection fraction is 40-45%. Post surgical hypokinesis of the interventricular septum is observed consistent with coronary artery bypass. There is abnormal ventricular septal wall motion consistent with right ventricular pacemaker. The left ventricular diastolic filling pattern is consistent with pseudonormalization. The left ventricular diastolic filling pattern is consistent with both elevated mean left atrial pressure and elevated left ventricular end-diastolic pressure. Left Atrium: The left atrium is moderately dilated. Right Ventricle: The right ventricle is mildly dilated. The right ventricular global systolic function is normal. The septum has abnormal paradoxical motion consistent with RV pacemaker. A pacemaker wire is visualized in the right ventricle. Right Atrium: The right atrial cavity size is normal. A pacemaker wire is visualized in the right atrium. Aortic Valve: The aortic valve is trileaflet. The aortic valve leaflets are mildly thickened. There is a trace of aortic regurgitation. There is no evidence of aortic stenosis. Mitral Valve: There is mitral annular calcification. The mitral valve leaflets are mildly thickened. There is moderate mitral regurgitation. There is no evidence of mitral stenosis. Tricuspid Valve: The tricuspid valve leaflets are normal. There is moderate tricuspid regurgitation. There is evidence of moderate pulmonary hypertension. There is no tricuspid stenosis. Pulmonic Valve: The pulmonic valve appears normal. There is trace to mild pulmonic regurgitation. There is no pulmonic stenosis. Pericardium: The pericardium appears normal. Aorta: There is no dilatation of the ascending aorta. There is no dilatation of the aortic arch. There is no dilation of the aortic root. Pulmonary Artery: The main pulmonary artery appears normal. Venous: The venous system is not well visualized. Conclusions There is global hypokinesis of the left ventricle with minor regional variation. Septal wall hypertrophy is observed. There is moderately decreased left ventricular systolic function. The estimated ejection fraction is 40-45%. The left ventricular diastolic filling pattern is consistent with pseudonormalization with both elevated mean left atrial pressure and elevated left ventricular end-diastolic pressure. The right ventricular global systolic function is normal. No vegetations noted on the pacer wires or the valves. A pacemaker wire is visualized in the right atrium. A pacemaker wire is visualized in the right ventricle. The aortic valve leaflets are mildly thickened with trace aortic regurgitation. There is mitral annular calcification. The mitral valve leaflets are mildly thickened. There is moderate mitral regurgitation. There is moderate tricuspid regurgitation. There is evidence of moderate pulmonary hypertension: 57 mmHg. Compared with prior echo of 08/29/13, EF is stable, AI is new, the degree of MR has increased from mild, the degree of TR has increased from mild an PA pressure has increased from 30 mmHg. Sclerotic valves seen on the prior study. Measurements Name Value Normal Range RVIDd (AP) 2D 2.9 cm (0.9 - 2.6) RVDdMajor (2D) 4.6 cm (2.2 - 4.4) RAd ISD 4CH 3.8 cm (3.4 - 4.9) RA (A4C)W 4.5 cm (2.9 - 4.6) IVSd (2D) 1.2 cm (0.6 - 1) LVPWd (2D) 1 cm (0.6 - 1) LVIDd (2D) 5 cm (3.6 - 5.4) LVIDs (2D) 4 cm - LV FS (2D) 20 % (25 - 45) Aortic Annulus 1.7 cm (1.4 - 2.6) Ao root diameter (2D) 3.1 cm (2.1 - 3.5) Ascending Ao 3.1 cm (2.1 - 3.4) Aortic arch 2.6 cm (1.8 - 3.4) Descending Ao 0.6 cm - LA dimension (AP) 2D 5.3 cm (2.3 - 3.8) LAd ISD 4CH 5.8 cm (2.9 - 5.3) LA ISD 4CH W 4.3 cm (2.5 - 4.5) Name Value Normal Range LA ESV SP 4CH (A/L) 63 ml - LA ESV SP 2CH (A/L) 136 ml - LA ESV BP (A/L) 104 ml - LA ESV BP (A/L) index 52.41 ml/m2 - LA ESV SP 4CH (MOD) 61 ml - LA ESV SP 2CH (MOD) 131 ml - Name Value Normal Range MV E-wave Vmax 1.4 m/sec - MV deceleration time 162 msec - MV A-wave Vmax 0.9 m/sec - MV E:A ratio 1.56 ratio - LV septal e' Vmax 0.04 m/sec - LV lateral e' Vmax 0.08 m/sec - LV E:e' septal ratio 35 ratio - LV E:e' lateral ratio 17.5 ratio - Name Value Normal Range AV Vmax 1.5 m/sec - AV VTI 37.3 cm - AV peak gradient 8.79 mmHg - AV mean gradient 4.31 mmHg - LVOT Vmax 1 m/sec - LVOT VTI 25.2 cm - LVOT peak gradient 4.34 mmHg - LVOT mean gradient 2.1 mmHg - Name Value Normal Range MR Vmax 4.7 m/sec - MR VTI 185 cm - Name Value Normal Range TR Vmax 3.5 m/sec - TR peak gradient 49 mmHg - RAP 8 mmHg - RVSP 57 mmHg - Name Value Normal Range PV Vmax 0.9 m/sec - PV peak gradient 3 mmHg -
[2017-04-18] MEDS: Atorvastatin* 80 MG TAB PO SCH (20:47)
--- NOTE | 2017-04-18 21:22 | CONS ---
CONSULTATION REPORT: DATE OF CONSULT: 04/18/17 REQUESTING PHYSICIAN: Dr. Adhikari. CONSULTING SERVICE: Infectious Disease. REASON FOR CONSULT: Group B strep bacteremia. IMPRESSION: 1. Admitted with rigors and found to have group B strep bacteremia in 4/4 bottles. In the setting of a pacemaker and defibrillator, symptoms have been of brief duration, mostly this is just related to her recent perineal cellulitis; however, seeding of the pacemaker is a consideration. 2. Obesity. 3. Diabetes. 4. Perineal and inguinal cellulitis, treated for candidiasis. RECOMMENDATION: Continue ceftriaxone, will increase to 2 g a day given her body size, as well as a transesophageal echocardiogram. If it is negative, then she should have 2 weeks of ceftriaxone after occurrence of her cultures. If it is positive, if there is a valve or lead vegetation, she should be considered for retraction of the device. HISTORY OF PRESENT ILLNESS: This is a 76-year-old woman with a pacemaker and defibrillator, admitted with rigors. They came on suddenly on while she was at her daughter's. She had a hard time getting off the couch and felt very weak, so they brought her to the hospital. Over the last few weeks, she had been treated for a groin and perineal infection with nystatin with some improvement. She had some nausea when she came to the hospital, that is resolved. Her shaking chills are less frequent and less intense. Blood cultures taken on admission are all positive for group B strep. She was on vancomycin and ceftriaxone, just ceftriaxone now. She had a transthoracic echocardiogram, the results of which are pending. She had a CT of abdomen and pelvis, showed distention of the stomach. A chest x-ray that showed no acute disease. In addition to improvement in her chills, her white count is down from 16,000 to 10,000. She is eating and not having diarrhea. PAST MEDICAL HISTORY: 1. Coronary artery disease, status post coronary artery bypass. 2. Status post defibrillator and pacemaker. 3. V-tach. 4. Peripheral vascular disease, status post right femoropopliteal bypass. 5. Insulin-dependent diabetes. 6. Ischemic cardiomyopathy. 7. Hypertension. 8. Right lower extremity DVT. 9. Depression. 10. PCI in 2004. 11. Cataract surgery. 12. Hypothyroidism. MEDICATIONS: 1. Tylenol. 2. Aspirin. 3. Lipitor. 4. Ceftriaxone 1 g a day. 5. Fondaparinux. 6. Hyoscyamine. 7. Insulin glargine. 8. Lactobacillus. 9. Omeprazole. 10. Potassium. 11. Sertraline. ALLERGIES: No known drug allergies. FAMILY HISTORY: No recurrent infections. Father had diabetes. Mother had coronary disease. SOCIAL HISTORY: She lives in [place] with her . She is retired. Nonsmoker. REVIEW OF SYSTEMS: A 14-point review of systems was negative except as noted above. PHYSICAL EXAM: Vital Signs: Temperature 36.4, heart rate 60, respiratory rate 16, blood pressure 129/49, O2 sat 100% on room air. In general, she is awake, not in distress. Neurologic: She is oriented x3. Follows all commands and moves all of her extremities. HEENT: There is no conjunctival hemorrhage. Oropharynx without lesions. Neck is supple without nuchal rigidity. Lymph Nodes: There is no inguinal, axillary, or epitrochlear lymphadenopathy. Heart has regular rate and rhythm without murmurs, rubs or gallops. Lungs are clear to auscultation bilaterally. Abdomen: Soft, nontender, nondistended. Bowel sounds present. Skin: In her perineum, bilateral inguinal areas, there is superficial erythema, which is nonblanching, some superficial desquamation. LABORATORY DATA: White blood cell count 10, hemoglobin 11, and platelets 67. Creatinine 0.5. CRP 5. Please see impressions and recommendations as outlined above, which I have discussed with Dr. Adhikari. Thanks for asking me to see Ms. Collins in consultation. [id number]/[facility] #: [id number] [facility]ITAL[facility]
[2017-04-19] MEDS: Acetaminophen TAB* 325 MG PO PRN ×2 (00:55→21:24)
[2017-04-19] MEDS ORDERED: cefTRIAXone(*) 1 GM in NS 0.9% 50 ML* 50 ML IVPB SCH (08:00)
[2017-04-19] MEDS: Insulin LISPRO* 1 UNITS UNIT SUBCUT SCH ×4 (08:32→21:37)
[2017-04-19] MEDS: cefTRIAXone(*) 2 GM in NS 0.9% 100 ML* 100 ML IVPB SCH (08:54)
[2017-04-19] MEDS: Furosemide TAB* 40 MG PO SCH (08:54)
[2017-04-19] MEDS: Potassium Chlor TAB* 20 MEQ TAB.ER PO SCH ×3 (08:55→21:17)
[2017-04-19] MEDS: Sertraline* 50 MG TAB PO SCH (08:55)
[2017-04-19] MEDS: Metoprolol Tartrate TAB* 25 MG PO SCH ×2 (08:55→21:17)
[2017-04-19] MEDS: Lactobacillus Acidophilu (GG)* 1 CAP CAP PO SCH ×2 (08:55→21:17)
[2017-04-19] MEDS: Omeprazole CAP* 20 MG PO SCH (08:55)
[2017-04-19] MEDS: Hyoscyamine TAB* 0.125 MG PO SCH ×3 (08:55→21:17)
[2017-04-19] MEDS: Aspirin EC Low Dose* 81 MG TAB.EC PO SCH (08:55)
[2017-04-19] MEDS: Insulin GLARGINE(*) 1 UNITS UNIT SUBCUT SCH ×2 (08:56→21:17)
[2017-04-19] MEDS: Fondaparinux* 7.5 MG/0.6 ML SYRINGE SUBCUT SCH (08:56)
[2017-04-19] MEDS: Nystatin CREAM* 15 GM TUBE TOPICAL SCH ×3 (09:03→21:22)
--- NOTE | 2017-04-19 10:55 | PN ---
Subjective Date of Service: 04/19/17 Interval History: Pt is feeling well. She has no complaints. She did notice mushy stool this AM. She has no pain. No SOB. Family History: Unchanged from Admission Social History: Unchanged from Admission Past Medical History: Unchanged from Admission Objective Active Medications: Acetaminophen (Tylenol Tab*) 650 mg PO Q4H PRN PRN Reason: FEVER/PAIN Last Admin: 04/19/17 00:55 Dose: 650 mg Aspirin (Aspirin Ec Low Dose*) 81 mg PO DAILY [facility] Last Admin: 04/19/17 08:55 Dose: 81 mg Atorvastatin Calcium (Lipitor*) 80 mg PO BEDTIME [facility] Last Admin: 04/18/17 20:47 Dose: 80 mg Dextrose (D50w Syringe 50 Ml*) 12.5 gm IV PUSH .FOR FS < 60 - SS PRN PRN Reason: FS < 60 Fondaparinux (Arixtra*) 7.5 mg SUBCUT DAILY [facility] Last Admin: 04/19/17 08:56 Dose: 7.5 mg Furosemide (Lasix Tab*) 80 mg PO QAM [facility] Last Admin: 04/19/17 08:54 Dose: 80 mg Hyoscyamine (Anaspaz Tab*) 0.125 mg PO TID [facility] Last Admin: 04/19/17 08:55 Dose: 0.125 mg Ceftriaxone Sodium 2 gm/ (Sodium Chloride) 100 mls @ 200 mls/hr IVPB Q24H [facility] Last Admin: 04/19/17 08:54 Dose: 200 mls/hr Insulin Glargine (Lantus(*)) 27 units SUBCUT BEDTIME [facility] Last Admin: 04/18/17 20:46 Dose: 27 unit Insulin Glargine (Lantus(*)) 30 units SUBCUT QAM [facility] Last Admin: 04/19/17 08:56 Dose: 30 units Insulin Human Lispro (Humalog*) 0 units SUBCUT ACHS [facility] PRN Reason: Protocol Last Admin: 04/19/17 08:32 Dose: Not Given Lactobacillus Rhamnosus (Culturelle*) 1 cap PO BID [facility] Last Admin: 04/19/17 08:55 Dose: 1 cap Metoprolol Tartrate (Lopressor Tab*) 25 mg PO BID [facility] Last Admin: 04/19/17 08:55 Dose: 25 mg Nystatin (Nystatin Cream*) 1 applic TOPICAL TID [facility] Last Admin: 04/19/17 09:03 Dose: 1 applic Omeprazole (Prilosec Cap*) 40 mg PO DAILY@0730 [facility] Last Admin: 04/19/17 08:55 Dose: 40 mg Ondansetron HCl (Zofran Inj*) 4 mg IV Q4H PRN PRN Reason: NAUSEA/VOMITING Potassium Chloride (Klor Con Er Tab*) 40 meq PO TID [facility] Last Admin: 04/19/17 08:55 Dose: 40 meq Sertraline HCl (Zoloft*) 50 mg PO DAILY [facility] Last Admin: 04/19/17 08:55 Dose: 50 mg Vital Signs - 8 hr 04/19/17 04/19/17 04/19/17 03:24 07:34 08:00 Temperature 98.2 F 98.1 F Pulse Rate 55 56 Respiratory 16 16 16 Rate Blood Pressure 114/45 132/54 (mmHg) O2 Sat by Pulse 99 100 100 Oximetry 04/19/17 08:55 Temperature Pulse Rate Respiratory 18 Rate Blood Pressure (mmHg) O2 Sat by Pulse Oximetry Oxygen Devices in Use Now: None Appearance: Elderly female sitting in a chair, NAD Eyes: No Scleral Icterus Ears/Nose/Mouth/Throat: Mucous Membranes Moist Respiratory: Symmetrical Chest Expansion and Respiratory Effort, Clear to Auscultation Cardiovascular: RRR, No Edema, - - soft systolic murmur Abdominal: NL Sounds; No Tenderness; No Distention Extremities: No Clubbing, Cyanosis Skin: No Rash or Ulcers, No Nodules or Sclerosis Neurological: Alert and Oriented x 3 Result Diagrams: 04/18/17 06:00 04/18/17 06:00 Assess/Plan/Problems-Billing Ms Collins is a 76 yo F with a h/o cardiomyopathy, VTach s/p ICD/pacer, CAD, DVT ( on Arixtra), DM, PVD(s/p femoral bypass), R ICA stenosis >70% presents with a episode of generalized weakness, nausea and epigastric pain. - Patient Problems (1) Bacteremia due to group B Streptococcus Current Visit: Yes Status: Acute Code(s): R78.81 - BACTEREMIA SNOMED Code( s): 850504381616 Comment: The patient has 4 of 4 bottles positive for group B strep from admission. Repeat blood cultures obtained this AM. TTE negative for evidence of endocarditis/pacer lead infection however Dr. Ford has recommended TEEfor better visualization. Will plan on getting this tomorrow. If negative she needs 2 weeks of IV Abx from time of blood cultures clearing. If RAYNA positive will consider transfer to another facility for consideration of lead extraction. Continue ceftriaxone 2g IV daily per Dr. Ford. (2) Type II diabetes mellitus Current Visit: Yes Status: Acute Comment: Sugars are under excellent control. Continue current medication regimen. (3) HTN (hypertension) Current Visit: Yes Status: Acute Code(s): I10 - ESSENTIAL (PRIMARY) HYPERTENSION SNOMED Code(s): 38007756 Comment: BP is under fair control. Continue metoprolol though dose decreased this AM for mild bradycardia. (4) History of ischemic cardiomyopathy Current Visit: Yes Status: Chronic Code(s): Z98.89 - OTHER SPECIFIED POSTPROCEDURAL STATES * DO NOT USE * SNOMED Code(s): 380287505 Comment: Continue lasix and supplemental K. No signs of fluid overload. Recheck BMP tomorrow. (5) CAD (coronary artery disease) Current Visit: Yes Status: Acute Code(s): I25.10 - ATHSCL HEART DISEASE OF [place] CORONARY ARTERY W/O ANG PCTRS SNOMED Code(s): 74029968 Comment: No c/o chest pain. Continue metoprolol, ASA and lipitor. (6) Hx of deep venous thrombosis Current Visit: Yes Status: Chronic Priority: Low Code(s): Z86.718 - PERSONAL HISTORY OF OTHER VENOUS THROMBOSIS AND EMBOLISM SNOMED Code(s): 841797240 Comment: Continue Arixtra. (7) DVT prophylaxis Current Visit: Yes Status: Acute Onset Date: 07/05/14 Code(s): FWZ9577 - SNOMED Code(s): 896245320 Comment: Arixtra (8) Full code status Current Visit: Yes Status: Acute Priority: Medium Onset Date: 07/05/14 Code(s): Z78.9 - OTHER SPECIFIED HEALTH STATUS SNOMED Code(s): 478568295 Status and Disposition: .
[2017-04-19] MEDS: Atorvastatin* 80 MG TAB PO SCH (21:17)
[2017-04-20 06:04] LABS: Hematocrit 36 % (35-47); Mean Corpuscular HGB Conc 33 g/dl (31-36); Mean Corpuscular Hemoglobin 30 pg (27-31); Mean Corpuscular Volume 91 fL (80-97); Mean Platelet Volume 9 um3 (7.4-10.4); Platelet Count 98 10^3/ul (150-450); Red Blood Count 3.96 10^6/ul (4.0-5.4); Red Cell Distribution Width 14 % (10.5-15); White Blood Count 5.9 10^3/ul (3.5-10.8)
[2017-04-20 06:19] LABS: EGFR Non-African American 93.8 (>60)
[2017-04-20] MEDS: Insulin LISPRO* 1 UNITS UNIT SUBCUT SCH ×4 (07:30→20:57)
[2017-04-20] MEDS: Omeprazole CAP* 20 MG PO SCH (08:22)
[2017-04-20] MEDS: cefTRIAXone(*) 2 GM in NS 0.9% 100 ML* 100 ML IVPB SCH (08:22)
[2017-04-20] MEDS: Aspirin EC Low Dose* 81 MG TAB.EC PO SCH (08:22)
[2017-04-20] MEDS: Lactobacillus Acidophilu (GG)* 1 CAP CAP PO SCH ×2 (08:22→21:22)
[2017-04-20] MEDS: Potassium Chlor TAB* 20 MEQ TAB.ER PO SCH ×3 (08:22→21:23)
[2017-04-20] MEDS: Furosemide TAB* 40 MG PO SCH (08:22)
[2017-04-20] MEDS: Sertraline* 50 MG TAB PO SCH (08:22)
[2017-04-20] MEDS: Metoprolol Tartrate TAB* 25 MG PO SCH ×2 (08:22→21:22)
[2017-04-20] MEDS: Hyoscyamine TAB* 0.125 MG PO SCH ×3 (08:24→22:02)
[2017-04-20] MEDS: Nystatin CREAM* 15 GM TUBE TOPICAL SCH ×3 (08:30→21:17)
[2017-04-20] MEDS ORDERED: Naloxone* 0.4 MG/ML 1 ML VIAL ONE (09:17)
[2017-04-20] MEDS ORDERED: Flumazenil* 0.1 MG/ML 5 ML MDV ONE (09:17)
[2017-04-20] MEDS ORDERED: fentaNYL* 50 MCG/ML 2 ML VIAL (100 MCG VIAL) ONE (09:17)
[2017-04-20] MEDS ORDERED: Lidocaine 2% VISCOUS* 15 ML UDC ONE (09:18)
[2017-04-20] MEDS ORDERED: Midazolam* 1 MG/ML 10 ML VIAL (10 MG) ONE (09:18)
[2017-04-20] MEDS ORDERED: Midazolam* 1 MG/ML 2 ML VIAL (2 MG) IV ONE (09:51)
[2017-04-20 10:07] LABS: Hematocrit 37 % (35-47); Hemoglobin 12.4 g/dl (12.0-16.0); Mean Corpuscular HGB Conc 33 g/dl (31-36); Mean Corpuscular Hemoglobin 31 pg (27-31); Mean Corpuscular Volume 92 fL (80-97); Mean Platelet Volume 10 um3 (7.4-10.4); Red Blood Count 4.06 10^6/ul (4.0-5.4); Red Cell Distribution Width 14 % (10.5-15); White Blood Count 7.1 10^3/ul (3.5-10.8)
[2017-04-20 10:09] LABS: Platelet Count 98 10^3/ul (150-450)
[2017-04-20 10:15] LABS: INR 0.97 (0.77-1.02)
[2017-04-20 10:18] LABS: EGFR Non-African American 85.8 (>60)
[2017-04-20] MEDS: Insulin GLARGINE(*) 1 UNITS UNIT SUBCUT SCH ×2 (11:44→20:58)
[2017-04-20] MEDS: Fondaparinux* 7.5 MG/0.6 ML SYRINGE SUBCUT SCH (14:16)
[2017-04-20] MEDS ORDERED: Clopidogrel TAB* 300 MG PO ONE (14:28)
--- NOTE | 2017-04-20 15:45 | PN ---
Subjective Date of Service: 04/20/17 Interval History: Pt is seen after an [facility] alert was called for 2 episodes of Vfib just prior to undergoing RAYNA. The patient is scared and tearful at this time. She denies any SOB or pain. Family History: Unchanged from Admission Social History: Unchanged from Admission Past Medical History: Unchanged from Admission Objective Active Medications: Acetaminophen (Tylenol Tab*) 650 mg PO Q4H PRN PRN Reason: FEVER/PAIN Last Admin: 04/19/17 21:24 Dose: 650 mg Aspirin (Aspirin Ec Low Dose*) 81 mg PO DAILY [facility] Last Admin: 04/20/17 08:22 Dose: 81 mg Atorvastatin Calcium (Lipitor*) 80 mg PO BEDTIME [facility] Last Admin: 04/19/17 21:17 Dose: 80 mg Clopidogrel Bisulfate (Plavix Tab*) 75 mg PO DAILY [facility] Dextrose (D50w Syringe 50 Ml*) 12.5 gm IV PUSH .FOR FS < 60 - SS PRN PRN Reason: FS < 60 Fondaparinux (Arixtra*) 7.5 mg SUBCUT DAILY [facility] Last Admin: 04/20/17 14:16 Dose: 7.5 mg Furosemide (Lasix Tab*) 80 mg PO QAM [facility] Last Admin: 04/20/17 08:22 Dose: 80 mg Hyoscyamine (Anaspaz Tab*) 0.125 mg PO TID [facility] Last Admin: 04/20/17 14:17 Dose: 0.125 mg Ceftriaxone Sodium 2 gm/ (Sodium Chloride) 100 mls @ 200 mls/hr IVPB Q24H [facility] Last Admin: 04/20/17 08:22 Dose: 200 mls/hr Insulin Glargine (Lantus(*)) 27 units SUBCUT BEDTIME [facility] Last Admin: 04/19/17 21:17 Dose: 27 unit Insulin Glargine (Lantus(*)) 30 units SUBCUT QAM [facility] Last Admin: 04/20/17 11:44 Dose: Not Given Insulin Human Lispro (Humalog*) 0 units SUBCUT ACHS [facility] PRN Reason: Protocol Last Admin: 04/20/17 11:23 Dose: Not Given Lactobacillus Rhamnosus (Culturelle*) 1 cap PO BID [facility] Last Admin: 04/20/17 08:22 Dose: 1 cap Metoprolol Tartrate (Lopressor Tab*) 25 mg PO BID [facility] Last Admin: 04/20/17 08:22 Dose: 25 mg Nystatin (Nystatin Cream*) 1 applic TOPICAL TID [facility] Last Admin: 04/20/17 14:19 Dose: 1 applic Ondansetron HCl (Zofran Inj*) 4 mg IV Q4H PRN PRN Reason: NAUSEA/VOMITING Pantoprazole Sodium (Protonix Tab (Nf)) 80 mg PO DAILY@0730 [facility] Potassium Chloride (Klor Con Er Tab*) 40 meq PO TID [facility] Last Admin: 04/20/17 14:17 Dose: 40 meq Sertraline HCl (Zoloft*) 50 mg PO DAILY [facility] Last Admin: 04/20/17 08:22 Dose: 50 mg Vital Signs - 8 hr 04/20/17 04/20/17 04/20/17 08:00 08:24 10:20 Temperature 98.0 F Pulse Rate 73 Respiratory 16 16 10 Rate Blood Pressure 123/50 (mmHg) O2 Sat by Pulse 100 100 Oximetry 04/20/17 04/20/17 04/20/17 10:29 10:31 10:46 Temperature Pulse Rate 74 71 71 Respiratory 9 16 Rate Blood Pressure 122/50 129/55 (mmHg) O2 Sat by Pulse 100 100 100 Oximetry 04/20/17 04/20/17 04/20/17 11:00 11:01 11:31 Temperature Pulse Rate 73 71 69 Respiratory 22 17 18 Rate Blood Pressure 142/52 135/63 (mmHg) O2 Sat by Pulse 97 96 Oximetry 04/20/17 04/20/17 04/20/17 12:00 12:01 12:31 Temperature Pulse Rate 65 64 63 Respiratory 18 26 19 Rate Blood Pressure 146/58 153/61 (mmHg) O2 Sat by Pulse 97 97 98 Oximetry 04/20/17 04/20/17 04/20/17 13:00 13:01 13:31 Temperature Pulse Rate 63 64 69 Respiratory 15 19 27 Rate Blood Pressure 117/68 144/52 (mmHg) O2 Sat by Pulse 97 97 95 Oximetry 04/20/17 04/20/17 14:00 14:01 Temperature Pulse Rate 65 65 Respiratory 18 20 Rate Blood Pressure 151/75 (mmHg) O2 Sat by Pulse 96 97 Oximetry Oxygen Devices in Use Now: OxyMask Appearance: Elderly female lying flat in bed, NAD Eyes: No Scleral Icterus Ears/Nose/Mouth/Throat: Mucous Membranes Moist Respiratory: Symmetrical Chest Expansion and Respiratory Effort, Clear to Auscultation - anteriorly and at the lateral bases Cardiovascular: NL Sounds; No Murmurs; No JVD, RRR, No Edema Abdominal: NL Sounds; No Tenderness; No Distention Extremities: No Clubbing, Cyanosis Skin: No Rash or Ulcers, No Nodules or Sclerosis Neurological: Alert and Oriented x 3 Result Diagrams: 04/20/17 09:53 04/20/17 09:53 Microbiology and Other Data: Microbiology 04/19/17 05:55 Aerobic Blood Culture - Preliminary Blood Venous No Growth Day 1 Anaerobic Blood Culture - Preliminary No Growth Day 1 Assess/Plan/Problems-Billing Ms Collins is a 76 yo F with a h/o cardiomyopathy, VTach s/p ICD/pacer, CAD, DVT ( on Arixtra), DM, PVD(s/p femoral bypass), R ICA stenosis >70% presents with a episode of generalized weakness, nausea and epigastric pain. - Patient Problems (1) Ventricular fibrillation Current Visit: Yes Status: Acute Code(s): I49.01 - VENTRICULAR FIBRILLATION SNOMED Code(s): 77170555 Comment: The patient had 2 episodes of Vfib this AM. She was defibrillated by her ICD. Unclear why she developed Vfib. ? secondary to electrolyte disturbances (hypomag) vs NSTEMI vs related to endocarditis. Will monitor in ICU. She received Mg supplementation per Dr. Barba after the Vfib events. (2) Bacteremia due to group B Streptococcus Current Visit: Yes Status: Acute Code(s): R78.81 - BACTEREMIA SNOMED Code( s): 782593415644 Comment: The patient has 4 of 4 bottles positive for group B strep from admission and has possibly infective endocarditis. Repeat blood cultures obtained yesterday AM are negative so far. Continue ceftriaxone 2g IV daily. The patient was going to have a RAYNA this AM however upon arival to the echo room the patient was found to be in and out of rapid afib. Dr. Barba was talking with the patient about cardioversion for the afib when she suddenly went into Vfib. The RAYNA has been placed on hold until Sunday. (3) CAD (coronary artery disease) Current Visit: Yes Status: Acute Code(s): I25.10 - ATHSCL HEART DISEASE OF [place] CORONARY ARTERY W/O ANG PCTRS SNOMED Code(s): 45630475 Comment: No c/o chest pain however the patient's troponin immediately after being defibrillated twice this AM was elevated at 0.44, repeat level up to 1.54. Will continue to follow the troponin until it peaks. ? [place] as the reason for going into Vfib. I have added plavix (300mg today then 75mg daily). ? need for cath if her troponin keeps climbing. ? if pt may have embolized from endocarditis. Continue metoprolol, ASA and lipitor. (4) Type II diabetes mellitus Current Visit: Yes Status: Acute Comment: Sugars are under excellent control. Continue lantus 30 units SQ qAM and 27 units SQ qPM. (5) HTN (hypertension) Current Visit: Yes Status: Acute Code(s): I10 - ESSENTIAL (PRIMARY) HYPERTENSION SNOMED Code(s): 65762664 Comment: Pt was hypotensive upon Dr. Barba's evaluation this AM for her RAYNA. Now resolved. Continue current medication regimen. (6) History of ischemic cardiomyopathy Current Visit: Yes Status: Chronic Code(s): Z98.89 - OTHER SPECIFIED POSTPROCEDURAL STATES * DO NOT USE * SNOMED Code(s): 716953067 Comment: Continue lasix and supplemental K. The patient has mild hypomagnesemia. Repleted earlier today. Check Mg level tomorrow AM. (7) Hx of deep venous thrombosis Current Visit: Yes Status: Chronic Code(s): Z86.718 - PERSONAL HISTORY OF OTHER VENOUS THROMBOSIS AND EMBOLISM SNOMED Code(s): 454420951 Comment: Continue Arixtra. (8) DVT prophylaxis Current Visit: Yes Status: Acute Onset Date: 07/05/14 Code(s): MST9684 - SNOMED Code(s): 413638035 Comment: Arixtra (9) Full code status Current Visit: Yes Status: Acute Onset Date: 07/05/14 Code(s): Z78.9 - OTHER SPECIFIED HEALTH STATUS SNOMED Code(s): 255008188 Status and Disposition: .
[2017-04-20] MEDS ORDERED: GuaiFENesin DM* 5 ML UDC PO PRN (19:55)
[2017-04-20] MEDS ORDERED: guaiFENesin LIQ* 100 MG/5 ML UDC ONE (20:21)
[2017-04-20] MEDS: Atorvastatin* 80 MG TAB PO SCH (21:22)
[2017-04-21 06:19] LABS: Hematocrit 36 % (35-47); Hemoglobin 11.7 g/dl (12.0-16.0); Mean Corpuscular HGB Conc 33 g/dl (31-36); Mean Corpuscular Hemoglobin 30 pg (27-31); Mean Corpuscular Volume 92 fL (80-97); Mean Platelet Volume 9 um3 (7.4-10.4); Platelet Count 120 10^3/ul (150-450); Red Blood Count 3.87 10^6/ul (4.0-5.4); Red Cell Distribution Width 14 % (10.5-15); White Blood Count 6.4 10^3/ul (3.5-10.8)
[2017-04-21 06:35] LABS: EGFR Non-African American 105.5 (>60)
[2017-04-21] MEDS ORDERED: Magnesium Sulfate 2 GM IV* 2 GM/50 ML BAG IVPB ONE (07:07)
--- NOTE | 2017-04-21 07:29 | PN ---
Subjective Date of Service: 04/21/17 Interval History: Pt is feeling ok. She states she had a terrible night however. She states she did not sleep well secondary to anxiety and being hooked up to the BP cuff, O2 monitor etc. She denies any chest pain or SOB. She states she has been coughing some but she is not able to bring up any sputum. She remains very nervous. Family History: Unchanged from Admission Social History: Unchanged from Admission Past Medical History: Unchanged from Admission Objective Active Medications: Acetaminophen (Tylenol Tab*) 650 mg PO Q4H PRN PRN Reason: FEVER/PAIN Last Admin: 04/19/17 21:24 Dose: 650 mg Aspirin (Aspirin Ec Low Dose*) 81 mg PO DAILY [facility] Last Admin: 04/20/17 08:22 Dose: 81 mg Atorvastatin Calcium (Lipitor*) 80 mg PO BEDTIME [facility] Last Admin: 04/20/17 21:22 Dose: 80 mg Clopidogrel Bisulfate (Plavix Tab*) 75 mg PO DAILY [facility] Dextrose (D50w Syringe 50 Ml*) 12.5 gm IV PUSH .FOR FS < 60 - SS PRN PRN Reason: FS < 60 Fondaparinux (Arixtra*) 7.5 mg SUBCUT DAILY [facility] Last Admin: 04/20/17 14:16 Dose: 7.5 mg Furosemide (Lasix Tab*) 80 mg PO QAM [facility] Last Admin: 04/20/17 08:22 Dose: 80 mg Guaifenesin/Dextromethorphan (Robitussin Dm*) 10 ml PO Q4H PRN PRN Reason: COUGH Last Admin: 04/20/17 20:46 Dose: 10 ml Hyoscyamine (Anaspaz Tab*) 0.125 mg PO TID [facility] Last Admin: 04/20/17 22:02 Dose: 0.125 mg Ceftriaxone Sodium 2 gm/ (Sodium Chloride) 100 mls @ 200 mls/hr IVPB Q24H [facility] Last Admin: 04/20/17 08:22 Dose: 200 mls/hr Magnesium Sulfate (Magnesium Sulfate 2 Gm Iv*) 2 gm in 50 mls @ 50 mls/hr IVPB ONCE ONE Stop: 04/21/17 08:06 Insulin Glargine (Lantus(*)) 27 units SUBCUT BEDTIME [facility] Last Admin: 04/20/17 20:58 Dose: 27 unit Insulin Glargine (Lantus(*)) 30 units SUBCUT QAM [facility] Last Admin: 04/20/17 11:44 Dose: Not Given Insulin Human Lispro (Humalog*) 0 units SUBCUT ACHS [facility] PRN Reason: Protocol Last Admin: 04/20/17 20:57 Dose: 8 unit Lactobacillus Rhamnosus (Culturelle*) 1 cap PO BID [facility] Last Admin: 04/20/17 21:22 Dose: 1 cap Lorazepam (Ativan Tab(*)) 0.5 mg PO Q6H PRN PRN Reason: ANXIETY Metoprolol Tartrate (Lopressor Tab*) 25 mg PO TID [facility] Last Admin: 04/20/17 21:22 Dose: 25 mg Nystatin (Nystatin Cream*) 1 applic TOPICAL TID [facility] Last Admin: 04/20/17 21:17 Dose: 1 applic Ondansetron HCl (Zofran Inj*) 4 mg IV Q4H PRN PRN Reason: NAUSEA/VOMITING Pantoprazole Sodium (Protonix Tab (Nf)) 80 mg PO DAILY@0730 [facility] Potassium Chloride (Klor Con Er Tab*) 40 meq PO TID [facility] Last Admin: 04/20/17 21:23 Dose: 40 meq Sertraline HCl (Zoloft*) 50 mg PO DAILY [facility] Last Admin: 04/20/17 08:22 Dose: 50 mg Vital Signs - 8 hr 04/20/17 04/21/17 04/21/17 23:53 00:00 00:01 Temperature 98.9 F Pulse Rate 63 64 Respiratory 21 17 Rate Blood Pressure 117/53 (mmHg) O2 Sat by Pulse 95 97 Oximetry 04/21/17 04/21/17 04/21/17 00:05 01:00 01:01 Temperature Pulse Rate 61 63 68 Respiratory 18 21 15 Rate Blood Pressure 113/44 (mmHg) O2 Sat by Pulse 95 96 Oximetry 04/21/17 04/21/17 04/21/17 01:35 02:00 02:07 Temperature Pulse Rate 64 67 Respiratory 20 21 20 Rate Blood Pressure 126/54 (mmHg) O2 Sat by Pulse 94 95 Oximetry 04/21/17 04/21/17 04/21/17 03:00 03:01 04:00 Temperature 98.4 F Pulse Rate 66 65 64 Respiratory 18 19 18 Rate Blood Pressure 119/44 (mmHg) O2 Sat by Pulse 91 94 94 Oximetry 04/21/17 04/21/17 04/21/17 04:01 04:51 05:00 Temperature Pulse Rate 64 64 Respiratory 20 19 19 Rate Blood Pressure 112/42 (mmHg) O2 Sat by Pulse 96 93 Oximetry 04/21/17 04/21/17 04/21/17 05:01 06:00 06:01 Temperature Pulse Rate 66 67 67 Respiratory 17 16 20 Rate Blood Pressure 115/48 130/50 (mmHg) O2 Sat by Pulse 94 96 96 Oximetry Oxygen Devices in Use Now: None Appearance: Elderly female lying in bed sleeping, easily awakens to voice, NAD Eyes: No Scleral Icterus Ears/Nose/Mouth/Throat: Mucous Membranes Moist Respiratory: Symmetrical Chest Expansion and Respiratory Effort, Clear to Auscultation Cardiovascular: NL Sounds; No Murmurs; No JVD, RRR, No Edema Abdominal: NL Sounds; No Tenderness; No Distention Extremities: No Clubbing, Cyanosis Skin: No Rash or Ulcers, No Nodules or Sclerosis Neurological: Alert and Oriented x 3 Result Diagrams: 04/21/17 05:55 04/21/17 05:55 Microbiology and Other Data: Microbiology 04/19/17 05:55 Aerobic Blood Culture - Preliminary Blood Venous No Growth Day 1 Anaerobic Blood Culture - Preliminary No Growth Day 1 Assess/Plan/Problems-Billing Ms Collins is a 76 yo F with a h/o cardiomyopathy, VTach s/p ICD/pacer, CAD, DVT ( on Arixtra), DM, PVD(s/p femoral bypass), R ICA stenosis >70% presents with a episode of generalized weakness, nausea and epigastric pain. - Patient Problems (1) Ventricular fibrillation Current Visit: Yes Status: Acute Code(s): I49.01 - VENTRICULAR FIBRILLATION SNOMED Code(s): 92182507 Comment: No further episodes of Vfib. Will replete Mg further today. ? cath vs stress test to eval for significant CAD as the cause of the episodes. Continue to monitor on tele. (2) Afib Current Visit: Yes Status: Acute Code(s): I48.91 - UNSPECIFIED ATRIAL FIBRILLATION SNOMED Code(s): 95968177 Comment: Just prior to going into Vfib the patient was in afib. She has no history of afib. ? if she has been going in and out of afib and just been unaware of it. She is currently in NSR. Will continue arixtra and metoprolol. Monitor on tele. (3) Bacteremia due to group B Streptococcus Current Visit: Yes Status: Acute Code(s): R78.81 - BACTEREMIA SNOMED Code( s): 355845144519 Comment: The patient has 4 of 4 bottles positive for group B strep from admission and has possibly infective endocarditis. Repeat BC are still negative. Continue ceftriaxone 2g IV daily. Will get RAYNA this Sunday. (4) CAD (coronary artery disease) Current Visit: Yes Status: Acute Code(s): I25.10 - ATHSCL HEART DISEASE OF [place] CORONARY ARTERY W/O ANG PCTRS SNOMED Code(s): 21233609 Comment: Troponin peaked at 2.85. ? secondary to rapid afib vs CAD vs embolism from IE. Repeat EKG this AM. Continue metoprolol, ASA, plavix, arixtra and lipitor. Will likely pursue stress test vs catheterization to eval the cause of the Vfib. (5) Type II diabetes mellitus Current Visit: Yes Status: Acute Comment: Sugars are under excellent control. Continue lantus 30 units SQ qAM and 27 units SQ qPM. (6) HTN (hypertension) Current Visit: Yes Status: Acute Code(s): I10 - ESSENTIAL (PRIMARY) HYPERTENSION SNOMED Code(s): 18699992 Comment: BP is under good control. Continue current medication regimen. (7) History of ischemic cardiomyopathy Current Visit: Yes Status: Chronic Code(s): Z98.89 - OTHER SPECIFIED POSTPROCEDURAL STATES * DO NOT USE * SNOMED Code(s): 447200454 Comment: Continue lasix and supplemental K. Replete Mg. No signs of fluid overload. (8) Hx of deep venous thrombosis Current Visit: Yes Status: Chronic Code(s): Z86.718 - PERSONAL HISTORY OF OTHER VENOUS THROMBOSIS AND EMBOLISM SNOMED Code(s): 194574192 Comment: Continue Arixtra. (9) DVT prophylaxis Current Visit: Yes Status: Acute Onset Date: 07/05/14 Code(s): FNX0374 - SNOMED Code(s): 260298864 Comment: Arixtra (10) Full code status Current Visit: Yes Status: Acute Onset Date: 07/05/14 Code(s): Z78.9 - OTHER SPECIFIED HEALTH STATUS SNOMED Code(s): 725438589 Status and Disposition: .
[2017-04-21] MEDS: Aspirin EC Low Dose* 81 MG TAB.EC PO SCH (08:09)
[2017-04-21] MEDS: Furosemide TAB* 40 MG PO SCH (08:09)
[2017-04-21] MEDS: Potassium Chlor TAB* 20 MEQ TAB.ER PO SCH ×3 (08:11→21:38)
[2017-04-21] MEDS: Sertraline* 50 MG TAB PO SCH (08:11)
[2017-04-21] MEDS: CMCS: Pantoprazole TAB (NF) 40 MG TAB PO SCH (08:11)
[2017-04-21] MEDS: Metoprolol Tartrate TAB* 25 MG PO SCH ×3 (08:12→21:38)
[2017-04-21] MEDS: Lactobacillus Acidophilu (GG)* 1 CAP CAP PO SCH ×2 (08:12→21:38)
[2017-04-21] MEDS: Clopidogrel TAB* 75 MG PO SCH (08:12)
[2017-04-21] MEDS: LORazepam TAB(*) 0.5 MG PO PRN ×2 (08:15→21:37)
[2017-04-21] MEDS: Insulin LISPRO* 1 UNITS UNIT SUBCUT SCH ×4 (08:17→21:37)
[2017-04-21] MEDS: Nystatin CREAM* 15 GM TUBE TOPICAL SCH ×3 (08:18→21:39)
[2017-04-21] MEDS: cefTRIAXone(*) 2 GM in NS 0.9% 100 ML* 100 ML IVPB SCH (09:30)
[2017-04-21] MEDS: Insulin GLARGINE(*) 1 UNITS UNIT SUBCUT SCH ×2 (09:34→21:37)
[2017-04-21] MEDS: Hyoscyamine TAB* 0.125 MG PO SCH ×3 (12:13→21:38)
[2017-04-21] MEDS: Fondaparinux* 7.5 MG/0.6 ML SYRINGE SUBCUT SCH (12:25)
--- NOTE | 2017-04-21 12:58 | PN ---
Subjective Date of Service: 04/21/17 - CC: cough, weakness. Pt s/p VF arrest. Interval History: The patient slept poorly due to BP cuff going off. New cough, dry, but feels like something could come up. No CP/orthopnea or PND. Weakness improving. Medications Active Medications: Acetaminophen (Tylenol Tab*) 650 mg PO Q4H PRN PRN Reason: FEVER/PAIN Last Admin: 04/19/17 21:24 Dose: 650 mg Aspirin (Aspirin Ec Low Dose*) 81 mg PO DAILY [facility] Last Admin: 04/21/17 08:09 Dose: 81 mg Atorvastatin Calcium (Lipitor*) 80 mg PO BEDTIME [facility] Last Admin: 04/20/17 21:22 Dose: 80 mg Clopidogrel Bisulfate (Plavix Tab*) 75 mg PO DAILY [facility] Last Admin: 04/21/17 08:12 Dose: 75 mg Dextrose (D50w Syringe 50 Ml*) 12.5 gm IV PUSH .FOR FS < 60 - SS PRN PRN Reason: FS < 60 Fondaparinux (Arixtra*) 7.5 mg SUBCUT DAILY [facility] Last Admin: 04/20/17 14:16 Dose: 7.5 mg Furosemide (Lasix Tab*) 80 mg PO QAM [facility] Last Admin: 04/21/17 08:09 Dose: 80 mg Guaifenesin/Dextromethorphan (Robitussin Dm*) 10 ml PO Q4H PRN PRN Reason: COUGH Last Admin: 04/20/17 20:46 Dose: 10 ml Hyoscyamine (Anaspaz Tab*) 0.125 mg PO TID [facility] Last Admin: 04/21/17 12:13 Dose: Not Given Ceftriaxone Sodium 2 gm/ (Sodium Chloride) 100 mls @ 200 mls/hr IVPB Q24H [facility] Last Admin: 04/21/17 09:30 Dose: 200 mls/hr Insulin Glargine (Lantus(*)) 27 units SUBCUT BEDTIME [facility] Last Admin: 04/20/17 20:58 Dose: 27 unit Insulin Glargine (Lantus(*)) 30 units SUBCUT QAM [facility] Last Admin: 04/21/17 09:34 Dose: 30 units Insulin Human Lispro (Humalog*) 0 units SUBCUT ACHS [facility] PRN Reason: Protocol Last Admin: 04/21/17 08:17 Dose: Not Given Lactobacillus Rhamnosus (Culturelle*) 1 cap PO BID [facility] Last Admin: 04/21/17 08:12 Dose: 1 cap Lorazepam (Ativan Tab(*)) 0.5 mg PO Q6H PRN PRN Reason: ANXIETY Last Admin: 04/21/17 08:15 Dose: 0.5 mg Metoprolol Tartrate (Lopressor Tab*) 25 mg PO TID [facility] Last Admin: 04/21/17 08:12 Dose: 25 mg Nystatin (Nystatin Cream*) 1 applic TOPICAL TID [facility] Last Admin: 04/21/17 08:18 Dose: 1 applic Ondansetron HCl (Zofran Inj*) 4 mg IV Q4H PRN PRN Reason: NAUSEA/VOMITING Pantoprazole Sodium (Protonix Tab (Nf)) 80 mg PO DAILY@0730 [facility] Last Admin: 04/21/17 08:11 Dose: 80 mg Potassium Chloride (Klor Con Er Tab*) 40 meq PO TID [facility] Last Admin: 04/21/17 08:11 Dose: 40 meq Sertraline HCl (Zoloft*) 50 mg PO DAILY [facility] Last Admin: 04/21/17 08:11 Dose: 50 mg Objective Vital Signs: Temp Pulse Resp BP Pulse Ox 99.5 F 62 18 107/71 97 04/21/17 12:00 04/21/17 12:01 04/21/17 12:01 04/21/17 12:01 04/21/17 12:01 Oxygen Devices in Use Now: None, Nasal Cannula Appearance: older woman, overweight, seated, comfortable. Eyes: PERRLA Ears/Nose/Mouth/Throat: Clear Oropharnyx, Mucous Membranes Moist Neck: Trachea Midline, No Thyroid Enlargement, Masses Respiratory: Symmetrical Chest Expansion and Respiratory Effort, Clear to Auscultation Cardiovascular: NL Sounds; No Murmurs; No JVD, RRR Abdominal: NL Sounds; No Tenderness; No Distention, No Hepatosplenomegaly Extremities: No Edema, No Clubbing, Cyanosis Skin: No Rash or Ulcers Neurological: Alert and Oriented x 3 - NOOKSACK Lines/Tubes/Other Access: Clean, Dry and Intact Peripheral IV Laboratory Results: 04/21/17 05:55 04/21/17 05:55 INR (Anticoag Therapy) 0.97 (0.77-1.02) 04/20/17 09:53 APTT 32.0 seconds (26.0-36.3) 04/20/17 09:53 Total Bilirubin 0.70 mg/dL (0.2-1.0) 04/20/17 09:53 AST 30 U/L (13-39) 04/20/17 09:53 ALT 26 U/L (7-52) 04/20/17 09:53 Alkaline Phosphatase 88 U/L (34-104) 04/20/17 09:53 B-Natriuretic Peptide 562 pg/mL (-100) H 04/20/17 11:23 Total Protein 6.5 g/dL (6.4-8.9) 04/20/17 09:53 Albumin 3.0 g/dL (3.2-5.2) L 04/20/17 09:53 Globulin 3.5 g/dL (2-4) 04/20/17 09:53 Albumin/Globulin Ratio 0.9 (1-3) L 04/20/17 09:53 TSH 4.42 mcIU/mL (0.34-5.60) 04/16/17 21:35 04/20/17 04/20/17 04/20/17 09:53 13:40 16:51 Troponin I 0.44 H* 1.54 H* 2.85 H* 04/20/17 04/21/17 20:25 05:55 Troponin I 2.53 H* 2.33 H* EKG Data: Monitor: NSR, occ. PVC's. Assessment/Plan 76 yo female, CAD and CABG, VT w/ICD, PVD of legs and carotids with CAD risks of DM, HTN, CHol, FHx admitted septic from Group B strep, uncertain source, possibly groin. Yesterday afib, RVR followed by [place] X2 with appropriate shock. Mild bump in trops. No further dysrhythmias following 2 grams Magnesium and amiodarone 300 mg IVP and increasing her metoprolol. Sepsis: On for RAYNA in AM. VT/VT -Magnesijm low for years, replace and evaluate why. -Increase metoprolol as vitals allow. -No further antiarrhythmics at this time. -Agree with anxiolytics. CAD/trops: -RCA severe disease and occluded SVG to RCA, so at risk for ischemia. -Non urgent chemical stress (or if angina or more VT/VF could go straight to cath). -continue with optimization of CAD risks. CM/elevated PAPr Continue metoprolol, avoid excessive salt, continue lasix. -Future ? candidate for aldactone instead of KCl? -Uncertain why she is not on an ACEI/ARB, but BP with sepsis too low to add now. -MR is contributing. PAF: -On Fondaparinux (for DVT), medication as above for now, but may benefit from an antiarrhythmic in the future.
--- NOTE | 2017-04-21 13:46 | CARD ---
CODE NOTE: DATE OF CODE: 04/20/17 HISTORY: The patient is a 76-year-old woman who I follow for coronary artery disease and peripheral vascular disease, who was admitted with sepsis and she was in the cardiac procedure room to undergo a transesophageal echo. On my arrival to the room, the patient was in atrial fibrillation with a rapid ventricular rate with systolic blood pressure of 85, this was a new rhythm for the patient this admission. The patient was also anxious regarding the upcoming procedure, but was otherwise feeling well. While discussing options of management of the paroxysmal AFib and how to stabilize her blood pressure and heart rate to allow for the procedure, the patient on the monitor acutely developed a polymorphic ventricular tachycardia/ Torsades, which her defibrillator appropriately sensed and shocked her out. A code was called immediately when the rhythm was noted. Following the first defibrillation after approximately 5 seconds, the patient again developed polymorphic ventricular tachycardia and was again shocked. She remained awake. She was given 2 g of magnesium and 300 mg of amiodarone IV push. It should be noted that the patient was shocked out of AFib into sinus rhythm. The patient was very anxious and we did give her 1 mg of Versed following the 2 shocks and she was transferred to the unit for additional monitoring. Reviewed medications with pharmacy, on medication to prolong QT was zofran which the patient had not been given. The patients beta quintin dose was decreased on admission due to low BP. Following the shocks, the patient denied chest pain, pressure, heaviness, orthopnea, or PND, but she was very scared. CONCLUSION: Afib with rapide ventricular rate and low BP to two episodes of Torsades de pointes, successfully and appropriately cardioverted by her defibrillator and stabilized with medical management of IV magnesium and IV amiodarone. Full repeat electrolyte panel and troponins to follow 12-lead ECG obtained, unremarkable with respect to ischemia, mild ST changes. [id number]/[facility] #: [id number] JEANETH
--- NOTE | 2017-04-21 15:25 | CONS ---
CC: Hospitalist; Dr. Daryl Ashford CONSULTATION REPORT: DATE OF CONSULT: 04/20/17 REASON FOR CONSULT: Vfib arrest. HISTORY OF PRESENT ILLNESS: Mrs. Collins is a 76-year-old woman with extensive and longstanding robertson ry artery disease and peripheral vascular disease. She additionally has a history of an ICD for nons ustained VT and inducible polymorphic VT/torsades. The patient was admitted on 04/17/17 due to profound weakness that occurred on . She al so had shaking, chills, and nausea. Her admission notes document that a week prior to this presentat ion she had diarrhea and 2 weeks prior she had a groin infection, treated topically. In the emergency department, she was found to be hypotensive. She had chills and leukocytosis. She was started on Zosyn empirically. Subsequently her blood cultures grew out beta-hemolytic strep grou p B (strep agalactiae) and her antibiotics regimen was changed to ceftriaxone. The patient had a tra nsthoracic echo looking for endocarditis, on 04/18/17, that was of only fair quality, did not show an y clear evidence of vegetations and showed sclerotic aortic and mitral valve, her leads were noted, a nd she had moderate mitral and moderate tricuspid insufficiency. She had pulmonary hypertension with a PA pressure of 57 mmHg. Following this the patient was scheduled for a transesophageal echo and in the procedure room it was noted to have Afib with a rapid ventricular rate and hypotension. She then had 2 episodes of torsade s de pointe. Her defibrillator appropriately sensed and cardioverted her twice and she was given 2 g of magnesium, 300 mg of amiodarone IV push, without recurrent events or dysrhythmias. She was trans ferred to the unit. The patient was very anxious with these events, but denied chest pain, pressure, heaviness, orthopnea or PND. She was unaware of the Afib as well. PAST MEDICAL HISTORY: The patient has a past medical history of: 1. Arthrosclerotic heart disease with bypass in 1995 (MCKENNA to the LAD and saphenous vein graft to th e PDA). Her most recent cath was in 2005: Left main clean, LAD 100% occluded, circumflex (dominant) 95% occluded proximally, and she received a drug-eluting stent. The right coronary artery had sever e diffuse disease and an occluded saphenous vein graft to the posterior descending. 2. V-Tach with ICD implantation in 2004 (Dr. Gui Goetz, [facility]). 3. Type 2 diabetes. 4. Dyslipidemia. 5. Hypertension. 6. Peripheral vascular disease (Dr. Zelaya). 7. DVT in 2011 with cellulitis. 8. Carotid artery disease (Dr. Zelaya). Carotid Doppler on 07/26/16 showed 70% occlusion of the r ight internal carotid artery and 50% to 69% of the left internal carotid artery. 9. Obesity. 10. Ischemic cardiomyopathy. Echocardiogram in 2013, EF 40% to 45%, mild mitral insufficiency, and mild tricuspid insufficiency. PAST SURGICAL HISTORY: Includes: 1. Bypass surgery. 2. ICD implantation. 3. Cholecystectomy. MEDICATIONS: Outpatient medications included: 1. Lipitor 80 mg a day. 2. Niacin 500 mg b.i.d. 3. Metoprolol 50 mg b.i.d. 4. Lasix 60 mg a day. 5. Potassium 120 mEq a day. 6. Aspirin 81 mg a day. 7. Multivitamin. 8. Calcium. 9. Tylenol. 10. Lantus insulin. 11. Fondaparinux 7.5 mg daily. 12. Omeprazole 40 mg a day. 13. Probiotic. 14. Nitrostat p.r.n. 15. Sertraline 50 mg a day. Inpatient medications included: 1. Aspirin 81 mg a day. 2. Lipitor 80 mg a day. 3. Ceftriaxone 2 g q.24 hours. 4. Arixtra 7.5 mg a day. 5. Lasix 80 mg a day. 6. Hyoscyamine 0.125 mg t.i.d. 7. Insulin. 8. Lactobacillus. 9. Her metoprolol was decreased to 25 mg b.i.d. 10. Nystatin cream. 11. Zofran p.r.n. (not used). 12. Potassium chloride 120 mEq a day. 13. Zoloft. ALLERGIES: Include XARELTO. FAMILY HISTORY: Significant for her mother at age 54 related to coronary disease. She had a si ster who of thoracic aneurysm and her father had a history of a stroke. SOCIAL HISTORY: The patient is . Her works, is very supportive. She stopped smoking in 1998 and does not use alcohol, had been working out in the gym regularly, recently. REVIEW OF SYSTEMS: Negative for recent orthopnea or PND. She feels the weakness and chills have imp roved somewhat. She denies recurrence of anginal symptoms or acute breathing problems. She denies d iarrhea, constipation, dysuria or hematuria. Other 14-point review of systems was negative. PHYSICAL EXAMINATION: General: Obese older woman, appears anxious and sicker than her usual baselin e, but pleasant and cooperative. Vital Signs: The patient is 5 feet 5 inches, weighs 199 pounds, wi th a BMI of 33. Blood pressure, when I initially saw her, was 85/60. She was in Afib, with a ventri cular rate of 130 beats a minute. Following her code and cardioversion in the unit, her blood pressu re was 117/68. She was in sinus rhythm with a pulse of 64. Oxygen saturation was 97% and temperatur e at 10:20 in the morning on 04/20/17 was 98 degrees Fahrenheit. Neurologic: She is hard of hearing . Cranial nerves are otherwise intact and she is awake, alert, and oriented to person, place, and ti me. Skin: Warm and dry. No appreciable cyanosis of the lips or nail beds. Midline sternotomy scar and ICD pocket, old and well healed. HEENT: Pupils are equal and round. Mucous membranes moist. N doris: Without appreciable increase in JVP. Lungs: Breath sounds were clear, with good effort. No whe ezes, rales, or rhonchi. Coronary: S1 and S2 regular, a bit distant. I do not appreciate murmurs. A bdomen: Soft and nontender. No hepatomegaly. Extremities: Lower extremities are thick, but no actu al edema. DIAGNOSTIC STUDIES/LAB DATA: Labs from 04/20/17 at 5:44 in the morning showed white count 5.9, hemog lobin 12, hematocrit 36, and from 9:53 in the morning, post code, hematocrit 37, white count 7.1, and platelets 98. INR is 0.97, PTT 32. From 5:44 in the morning, sodium 137, potassium 4.2, chloride 1 04, bicarb 29, glucose 78. C-reactive protein 91.6. Magnesium in the setting of the code at 9:53 wa s 1.6, and in reviewing her chart it has been low since at least 2010, ranging as low as 0.8 and the highest of 1.7 in 2014. Troponin at 9:53, #1 of 0.44, #2 of 1.54, #3 of 2.85, #4 of 2.53. BNP of 56 2. Blood cultures positive from 04/16/17 positive for beta-hemolytic Strep group B. ECG at 9:41, post arrest, shows normal sinus rhythm at 72 beats per minute with the left bundle branc h block. Some ST depression noted in the precordial leads. Repeat EKG on 04/20/17 at 1301, showed si nus rhythm with a left bundle branch block, and resolution of the ST depression in the precordial quintin ds, lateral leads have some mild ST depression noted. IMPRESSION: In summary, Elisabeth Collins is a 76-year-old woman admitted with group B Strep sepsis who we nt into atrial fibrillation and then torsades de pointe and was appropriately shocked. She is curren tly hemodynamically stable, with some evidence of ischemia on EKG and mild elevation in troponins. For the dysrhythmias, she has chronically low magnesium, which maybe related to longstanding high chr onic diuretic use, but could also be related to some underlying metabolic issue. For now we will rep lace. We can consider nonurgent consultation with Renal to look into how to optimize this. For the monomorphic ventricular tachycardia, I reviewed her initial consultation and EP study in 2004 and she did have inducible polymorphic ventricular tachycardia at that time. So, this is not a new problem. For now I recommend we re-increase her beta-quintin as her vitals tolerate it, as weaning o ff of this may have contributed to this and anxiety could have contributed it to this, as well as the magnesium. For now, we will hold off on additional antiarrhythmics. For the patient's underlying arthrosclerotic heart disease, the bump in troponin is not unexpected as she is dependent on collateral flow to the right coronary artery. I do not feel we need an urgent ca th. We could update a stress test when she is more stable as her last one was done in 2011. Regarding the patient's group B Strep sepsis and potential risk for endocarditis, the procedure was a borted due to the VF, but we will tentatively plan on doing it over the weekend when she is stabilize d. Additional recommendations will be made pending her response to the above measures and findings on he r transesophageal echo. We will continue with aggressive risk factor modification of her diabetes, blood pressure, and lipids . [id number]/[id number] #: [id number]
[2017-04-21] MEDS: Atorvastatin* 80 MG TAB PO SCH (21:38)
[2017-04-22] MEDS: Nystatin CREAM* 15 GM TUBE TOPICAL SCH ×3 (07:15→22:16)
--- NOTE | 2017-04-22 07:51 | PN ---
Subjective Date of Service: 04/22/17 Interval History: Pt is feeling ok this AM. She is nervous about the upcoming RAYNA. She states she did sleep a little better last night but was up frequently to urinate. She denies any pain. No SOB. No diarrhea. Nursing notes that she is slightly wobbly on her feet this AM. Family History: Unchanged from Admission Social History: Unchanged from Admission Past Medical History: Unchanged from Admission Objective Active Medications: Acetaminophen (Tylenol Tab*) 650 mg PO Q4H PRN PRN Reason: FEVER/PAIN Last Admin: 04/19/17 21:24 Dose: 650 mg Aspirin (Aspirin Ec Low Dose*) 81 mg PO DAILY [facility] Last Admin: 04/21/17 08:09 Dose: 81 mg Atorvastatin Calcium (Lipitor*) 80 mg PO BEDTIME [facility] Last Admin: 04/21/17 21:38 Dose: 80 mg Clopidogrel Bisulfate (Plavix Tab*) 75 mg PO DAILY [facility] Last Admin: 04/21/17 08:12 Dose: 75 mg Dextrose (D50w Syringe 50 Ml*) 12.5 gm IV PUSH .FOR FS < 60 - SS PRN PRN Reason: FS < 60 Fondaparinux (Arixtra*) 7.5 mg SUBCUT DAILY [facility] Last Admin: 04/21/17 12:25 Dose: 7.5 mg Furosemide (Lasix Tab*) 80 mg PO QAM [facility] [place] Last Admin: 04/21/17 08:09 Dose: 80 mg Guaifenesin/Dextromethorphan (Robitussin Dm*) 10 ml PO Q4H PRN PRN Reason: COUGH Last Admin: 04/20/17 20:46 Dose: 10 ml Hyoscyamine (Anaspaz Tab*) 0.125 mg PO TID [facility] [place] Last Admin: 04/21/17 21:38 Dose: 0.125 mg Ceftriaxone Sodium 2 gm/ (Sodium Chloride) 100 mls @ 200 mls/hr IVPB Q24H [facility] Last Admin: 04/21/17 09:30 Dose: 200 mls/hr Insulin Glargine (Lantus(*)) 27 units SUBCUT BEDTIME [facility] [place] Last Admin: 04/21/17 21:37 Dose: 27 unit Insulin Glargine (Lantus(*)) 30 units SUBCUT QAM [facility] [place] Last Admin: 04/21/17 09:34 Dose: 30 units Insulin Human Lispro (Humalog*) 0 units SUBCUT ACHS [facility] PRN Reason: Protocol Last Admin: 04/21/17 21:37 Dose: 6 unit Lactobacillus Rhamnosus (Culturelle*) 1 cap PO BID [facility] Last Admin: 04/21/17 21:38 Dose: 1 cap Lorazepam (Ativan Tab(*)) 0.5 mg PO Q6H PRN PRN Reason: ANXIETY Last Admin: 04/21/17 21:37 Dose: 0.5 mg Metoprolol Tartrate (Lopressor Tab*) 25 mg PO TID [facility] [place] Last Admin: 04/21/17 21:38 Dose: 25 mg Nystatin (Nystatin Cream*) 1 applic TOPICAL TID [facility] [place] Last Admin: 04/21/17 21:39 Dose: 1 applic Ondansetron HCl (Zofran Inj*) 4 mg IV Q4H PRN PRN Reason: NAUSEA/VOMITING Pantoprazole Sodium (Protonix Tab (Nf)) 80 mg PO DAILY@0730 [facility] [place] Last Admin: 04/21/17 08:11 Dose: 80 mg Potassium Chloride (Klor Con Er Tab*) 40 meq PO TID [facility] Last Admin: 04/21/17 21:38 Dose: 40 meq Sertraline HCl (Zoloft*) 50 mg PO DAILY [facility] Last Admin: 04/21/17 08:11 Dose: 50 mg Vital Signs - 8 hr 04/22/17 04/22/17 04/22/17 00:00 00:01 00:56 Temperature 99.4 F Pulse Rate 67 71 Respiratory 23 25 25 Rate Blood Pressure 123/55 (mmHg) O2 Sat by Pulse 95 96 Oximetry 04/22/17 04/22/17 04/22/17 01:00 01:01 02:00 Temperature Pulse Rate 66 70 65 Respiratory 14 15 22 Rate Blood Pressure 126/57 135/56 (mmHg) O2 Sat by Pulse 95 96 95 Oximetry 04/22/17 04/22/17 04/22/17 02:01 03:00 03:01 Temperature Pulse Rate 66 70 65 Respiratory 19 24 22 Rate Blood Pressure 143/63 (mmHg) O2 Sat by Pulse 95 92 94 Oximetry 04/22/17 04/22/17 04/22/17 03:12 04:00 04:01 Temperature 99.2 F Pulse Rate 62 65 Respiratory 21 18 21 Rate Blood Pressure 126/54 (mmHg) O2 Sat by Pulse 94 95 Oximetry 04/22/17 04/22/17 04/22/17 05:00 05:01 06:00 Temperature Pulse Rate 64 63 64 Respiratory 20 20 17 Rate Blood Pressure 136/59 158/66 (mmHg) O2 Sat by Pulse 93 93 91 Oximetry 04/22/17 04/22/17 04/22/17 06:01 07:00 07:25 Temperature 98.7 F Pulse Rate 66 Respiratory 16 21 Rate Blood Pressure (mmHg) O2 Sat by Pulse 96 Oximetry Oxygen Devices in Use Now: None Appearance: Elderly female lying in bed sleeping, easily awakened to voice, NAD Eyes: No Scleral Icterus Ears/Nose/Mouth/Throat: Mucous Membranes Moist Respiratory: Symmetrical Chest Expansion and Respiratory Effort, Clear to Auscultation Cardiovascular: NL Sounds; No Murmurs; No JVD, RRR, No Edema Abdominal: NL Sounds; No Tenderness; No Distention Extremities: No Clubbing, Cyanosis Skin: No Rash or Ulcers Neurological: Alert and Oriented x 3 Result Diagrams: 04/21/17 05:55 04/21/17 05:55 Microbiology and Other Data: Microbiology 04/19/17 05:55 Aerobic Blood Culture - Preliminary Blood Venous No Growth Day 1 Anaerobic Blood Culture - Preliminary No Growth Day 1 Assess/Plan/Problems-Billing Ms Collins is a 76 yo F with a h/o cardiomyopathy, VTach s/p ICD/pacer, CAD, DVT ( on Arixtra), DM, PVD(s/p femoral bypass), R ICA stenosis >70% presents with a episode of generalized weakness, nausea and epigastric pain. - Patient Problems (1) Ventricular fibrillation Current Visit: Yes Status: Acute Code(s): I49.01 - VENTRICULAR FIBRILLATION SNOMED Code(s): 99862768 Comment: No further ventricular ectopy. Will continue magnesium supplementation with mag oxide 400mg daily. Increase metoprolol back up to 50mg BID. Will plan on a chemical nuclear stress test on 04/24/16 to eval for ischemia. (2) Afib Current Visit: Yes Status: Acute Code(s): I48.91 - UNSPECIFIED ATRIAL FIBRILLATION SNOMED Code(s): 46288624 Comment: Just prior to going into Vfib the patient was in afib. She has no history of afib. Will continue metoprolol and arixtra. No antiarrhythmic at this time per Dr. Barba. (3) Bacteremia due to group B Streptococcus Current Visit: Yes Status: Acute Code(s): R78.81 - BACTEREMIA SNOMED Code( s): 411399279460 Comment: Follow up blood cultures negative from 04/19/17. Plan is for RAYNA this AM to eval for possible endocarditis. Continue ceftriaxone 2g IV daily. If RAYNA negative will need 10 more days of treatment. If RAYNA positive will talk with Dr. Ford about duration of therapy. (4) CAD (coronary artery disease) Current Visit: Yes Status: Acute Code(s): I25.10 - ATHSCL HEART DISEASE OF [place] CORONARY ARTERY W/O ANG PCTRS SNOMED Code(s): 22343553 Comment: Troponin peaked at 2.85. Plan for chemical nuclear stress on . Continue ASA, plavix, metoprolol, lipitor and arixtra. (5) Type II diabetes mellitus Current Visit: Yes Status: Acute Comment: Sugars have been higher over the last few days. Will continue lantus at current dose and once eating provide diabetic diet. (6) HTN (hypertension) Current Visit: Yes Status: Acute Code(s): I10 - ESSENTIAL (PRIMARY) HYPERTENSION SNOMED Code(s): 59119792 Comment: BP is under good control. Continue current medication regimen. (7) History of ischemic cardiomyopathy Current Visit: Yes Status: Chronic Code(s): Z98.89 - OTHER SPECIFIED POSTPROCEDURAL STATES * DO NOT USE * SNOMED Code(s): 321127158 Comment: Continue lasix and supplemental K and Mg. (8) Hx of deep venous thrombosis Current Visit: Yes Status: Chronic Code(s): Z86.718 - PERSONAL HISTORY OF OTHER VENOUS THROMBOSIS AND EMBOLISM SNOMED Code(s): 714213766 Comment: Continue Arixtra. (9) DVT prophylaxis Current Visit: Yes Status: Acute Onset Date: 07/05/14 Code(s): [id number] - SNOMED Code(s): 406922745 Comment: Arixtra (10) Full code status Current Visit: Yes Status: Acute Onset Date: 07/05/14 Code(s): Z78.9 - OTHER SPECIFIED HEALTH STATUS SNOMED Code(s): 806552282 Status and Disposition: .
[2017-04-22] MEDS: Insulin LISPRO* 1 UNITS UNIT SUBCUT SCH ×4 (08:45→22:16)
[2017-04-22] MEDS ORDERED: Flumazenil* 0.1 MG/ML 5 ML MDV ONE (09:38)
[2017-04-22] MEDS ORDERED: Naloxone* 0.4 MG/ML 1 ML VIAL ONE (09:39)
[2017-04-22] MEDS ORDERED: Midazolam* 1 MG/ML 10 ML VIAL (10 MG) ONE (09:39)
[2017-04-22] MEDS ORDERED: fentaNYL* 50 MCG/ML 5 ML VIAL (250 MCG VIAL) ONE (09:40)
[2017-04-22] MEDS ORDERED: Lidocaine 2% VISCOUS* 15 ML UDC ONE (09:41)
[2017-04-22] MEDS: cefTRIAXone(*) 2 GM in NS 0.9% 100 ML* 100 ML IVPB SCH ×2 (12:33→12:58)
[2017-04-22] MEDS: CMCS: Pantoprazole TAB (NF) 40 MG TAB PO SCH (13:23)
[2017-04-22] MEDS: Hyoscyamine TAB* 0.125 MG PO SCH ×3 (13:24→22:15)
[2017-04-22] MEDS: Clopidogrel TAB* 75 MG PO SCH (13:24)
[2017-04-22] MEDS: Aspirin EC Low Dose* 81 MG TAB.EC PO SCH (13:24)
[2017-04-22] MEDS: Furosemide TAB* 40 MG PO SCH (13:24)
[2017-04-22] MEDS: Potassium Chlor TAB* 20 MEQ TAB.ER PO SCH ×3 (13:25→22:16)
[2017-04-22] MEDS: Magnesium Oxide TAB* 400 MG PO SCH (13:25)
[2017-04-22] MEDS: Sertraline* 50 MG TAB PO SCH (13:25)
[2017-04-22] MEDS: Fondaparinux* 7.5 MG/0.6 ML SYRINGE SUBCUT SCH (13:28)
[2017-04-22] MEDS: Lactobacillus Acidophilu (GG)* 1 CAP CAP PO SCH ×2 (13:29→22:16)
[2017-04-22] MEDS: Insulin GLARGINE(*) 1 UNITS UNIT SUBCUT SCH ×2 (13:35→22:17)
[2017-04-22] MEDS: Metoprolol Tartrate TAB* 50 mg PO SCH ×2 (13:35→22:16)
--- NOTE | 2017-04-22 13:45 | TEE ---
Patient: JERSON MADRIGAL [facility] Rec#: [id number] : 1940 Date: 04/22/2017 Age: 76y Height: 165.1 cm / 65.0 in Weight: 88.45 kg / 194.9 lbs Sex: F BSA: 1.96 Room#: ICU8 Type: Inpatient Referring: Abril Adhikari DO Performing: Johanny Barba MD Reading: Johanny Barba MD Dog Or Animal Sitter: Melissa Hearn RDCS Nurse: ICU nurse CC: Daryl Ashford MD Transesophageal Echocardiogram Indication: Bacteremia BP: 158/66 HR: 83 Rhythm: NSR Findings History: + blood cultures Strep Agalactiae,CAD,PVD,s/p AICD implant,obesity,ischemic cardiomyopathy. Technical Comments: The study quality is good. Left Ventricle: The left ventricular chamber size is normal. Mild global hypokinesis of the left ventricle is observed. There is mildly decreased left ventricular systolic function. The estimated ejection fraction is 40-45%. Left Atrium: The left atrium is normal in size. There is no thrombus visualized in the left atrial appendage. Right Ventricle: The right ventricular cavity size is normal. The right ventricular global systolic function is mildly reduced. A pacemaker wire is visualized in the right ventricle. Right Atrium: The right atrial cavity size is normal. A pacemaker wire is visualized in the right atrium. There were late bubbles seen in the left atrium. Aortic Valve: The aortic valve is trileaflet. There is evidence of aortic sclerosis without stenosis. There is no evidence of aortic regurgitation. There is no evidence of aortic stenosis. There is no aortic vegetation present. Mitral Valve: The mitral valve leaflets appear normal. There is a trace of mitral regurgitation. There is no evidence of mitral stenosis. A mass is visualized on the mitral valve which appears consistent with a vegetation.Noted in the subvalvular apparatus. In 3 chamber view suggestive of a possible vegetation, in other views more consistent with sclerosis. This appears to be approximately 0.3cm by 0.9 cm. Tricuspid Valve: The tricuspid valve leaflets are normal. There is trace tricuspid regurgitation. Unable to estimate the right ventricular systolic pressure. There is no tricuspid stenosis. No vegetation is observed on the tricuspid valve. Pulmonic Valve: The pulmonic valve appears normal. There is no evidence of pulmonic regurgitation. There is no pulmonic stenosis. No vegetation is observed on the pulmonic valve. Pericardium: The pericardium appears normal. Aorta: There is no dilatation of the ascending aorta. There is no dilatation of the aortic arch. There is no dilation of the aortic root. There is plaque visualized in the descending aorta. Moderate plaque noted. There is evidence of grade 3 (atheroma Less Than = 5mm) atheroma in the descending aorta. Pulmonary Artery: The main pulmonary artery appears normal. Venous: The bicaval view was obtained and appears normal. The pulmonary veins appear normal in size. 3 out of 4 seen. The flow pattern of the pulmonary veins appear normal. RAYNA Procedures: History and physical as well as labs were reviewed. The patient was in a fasting state. Risks and benefits of the procedure, including alternatives, were discussed and written informed consent was obtained. The patient and/or their health care manufacturer's service representative expressed understanding of the procedure, risks and benefits. Baseline and continuous monitoring of blood pressure, heart rate, pulse oximetry and heart rhythm was performed throughout the procedure. The appropriate time-out procedure was performed as per [facility] protocol. The patient was placed in the left lateral decubitus position. An oral bite block was not needed as patient was edentulous for this procedure. The patient's posterior pharynx was anesthetized with 20ml of 2% viscous lidocaine. The patient received IV Midazolam with a total dose of The patient received IV Fentanyl with a total dose of The multiplane transesophageal echocardiogram probe was inserted through the posterior oropharynx and advanced into the esophagus without difficulty. The multiplane transesophageal echocardiogram probe was inserted through the posterior oropharynx, the patient was repositioned as there was difficulty advancing the probe into the esophagus. Spectral Doppler was also used. The atrial septum was interrogated with color flow Doppler. At the conclusion of the procedure the probe was removed with continuous suction without complications. The patient tolerated the procedure with no apparent complications. Conclusions Mild global hypokinesis of the left ventricle is observed. The estimated ejection fraction is 40-45%. The right ventricular global systolic function is mildly reduced. A pacemaker wire is visualized in the right ventricle and in the right atrium. No vegetations noted on the pacemaker leads. There were late bubbles seen in the left atrium c/w small cardiopulmonary shunt, possible PFO. Aortic valve sclerosis with normal function. There is a trace of mitral regurgitation. A calcific structure is visualized on the subvalvualr apparatus of the mitral valve, possible vegetation vs. sclerosis. Measures 0.3cm by 0.9 cm 3 chamber view. There is trace tricuspid regurgitation. There is moderate calcific plaque visualized in the descending aorta. Aortic arch not visualized. Compared with prior echo of 04/18/17, EF is stable, the degree of MR and TR have improved, previously moderate, PA pressure previously 57 mmHg, valvular sclerosis noted on prior study. Measurements Name Value Normal Range Aortic Annulus 2 cm (1.4 - 2.6) Ao root diameter (2D) 3.1 cm (2.1 - 3.5) Ascending Ao 1.8 cm (2.1 - 3.4) Name Value Normal Range MV E-wave Vmax 0.9 m/sec - MV deceleration time 196 msec - MV A-wave Vmax 0.9 m/sec - MV E:A ratio 1.03 ratio -
--- NOTE | 2017-04-22 14:44 | PN ---
Subjective Date of Service: 04/22/17 - CC: septic, PAFib, Tosades. Interval History: No new c/o, very anxious about the upcoming RAYNA (transesophogeal echo). Medications Active Medications: Acetaminophen (Tylenol Tab*) 650 mg PO Q4H PRN PRN Reason: FEVER/PAIN Last Admin: 04/19/17 21:24 Dose: 650 mg Aspirin (Aspirin Ec Low Dose*) 81 mg PO DAILY [facility] Last Admin: 04/22/17 13:24 Dose: 81 mg Atorvastatin Calcium (Lipitor*) 80 mg PO BEDTIME [facility] Last Admin: 04/21/17 21:38 Dose: 80 mg Clopidogrel Bisulfate (Plavix Tab*) 75 mg PO DAILY [facility] Last Admin: 04/22/17 13:24 Dose: 75 mg Dextrose (D50w Syringe 50 Ml*) 12.5 gm IV PUSH .FOR FS < 60 - SS PRN PRN Reason: FS < 60 Fondaparinux (Arixtra*) 7.5 mg SUBCUT DAILY [facility] Last Admin: 04/22/17 13:28 Dose: 7.5 mg Furosemide (Lasix Tab*) 80 mg PO QAM [facility] Last Admin: 04/22/17 13:24 Dose: 80 mg Guaifenesin/Dextromethorphan (Robitussin Dm*) 10 ml PO Q4H PRN PRN Reason: COUGH Last Admin: 04/20/17 20:46 Dose: 10 ml Hyoscyamine (Anaspaz Tab*) 0.125 mg PO TID [facility] Last Admin: 04/22/17 13:28 Dose: 0.125 mg Ceftriaxone Sodium 2 gm/ (Sodium Chloride) 100 mls @ 200 mls/hr IVPB 1300 [facility] Last Admin: 04/22/17 12:58 Dose: 200 mls/hr Insulin Glargine (Lantus(*)) 27 units SUBCUT BEDTIME [facility] Last Admin: 04/21/17 21:37 Dose: 27 unit Insulin Glargine (Lantus(*)) 30 units SUBCUT QAM [facility] Last Admin: 04/22/17 13:35 Dose: 30 units Insulin Human Lispro (Humalog*) 0 units SUBCUT ACHS [facility] PRN Reason: Protocol Last Admin: 04/22/17 13:06 Dose: Not Given Lactobacillus Rhamnosus (Culturelle*) 1 cap PO BID [facility] Last Admin: 04/22/17 13:29 Dose: Not Given Lorazepam (Ativan Tab(*)) 0.5 mg PO Q6H PRN PRN Reason: ANXIETY Last Admin: 04/21/17 21:37 Dose: 0.5 mg Magnesium Oxide (Magox 400 Tab*) 400 mg PO DAILY [facility] Last Admin: 04/22/17 13:25 Dose: 400 mg Metoprolol Tartrate (Lopressor Tab*) 50 mg PO BID [facility] Last Admin: 04/22/17 13:35 Dose: 50 mg Nystatin (Nystatin Cream*) 1 applic TOPICAL TID [facility] Last Admin: 04/22/17 07:15 Dose: 1 applic Ondansetron HCl (Zofran Inj*) 4 mg IV Q4H PRN PRN Reason: NAUSEA/VOMITING Pantoprazole Sodium (Protonix Tab (Nf)) 80 mg PO DAILY@0730 [facility] Last Admin: 04/22/17 13:23 Dose: 80 mg Potassium Chloride (Klor Con Er Tab*) 40 meq PO TID [facility] Last Admin: 04/22/17 14:14 Dose: Not Given Sertraline HCl (Zoloft*) 50 mg PO DAILY [facility] Last Admin: 04/22/17 13:25 Dose: 50 mg Objective Vital Signs: Temp Pulse Resp BP Pulse Ox 99.6 F 67 20 138/67 97 04/22/17 12:00 04/22/17 09:00 04/22/17 09:00 04/22/17 08:00 04/22/17 09:00 Oxygen Devices in Use Now: None Appearance: older woman, overweight, seated, anxious. Eyes: PERRLA Ears/Nose/Mouth/Throat: Clear Oropharnyx, Mucous Membranes Moist Neck: Trachea Midline, No Thyroid Enlargement, Masses Respiratory: Symmetrical Chest Expansion and Respiratory Effort, Clear to Auscultation Cardiovascular: NL Sounds; No Murmurs; No JVD, RRR Abdominal: NL Sounds; No Tenderness; No Distention, No Hepatosplenomegaly Extremities: No Edema, No Clubbing, Cyanosis Skin: No Rash or Ulcers Neurological: Alert and Oriented x 3 - [place] Lines/Tubes/Other Access: Clean, Dry and Intact Peripheral IV Laboratory Results: 04/21/17 05:55 04/21/17 05:55 INR (Anticoag Therapy) 0.97 (0.77-1.02) 04/20/17 09:53 APTT 32.0 seconds (26.0-36.3) 04/20/17 09:53 Total Bilirubin 0.70 mg/dL (0.2-1.0) 04/20/17 09:53 AST 30 U/L (13-39) 04/20/17 09:53 ALT 26 U/L (7-52) 04/20/17 09:53 Alkaline Phosphatase 88 U/L (34-104) 04/20/17 09:53 B-Natriuretic Peptide 562 pg/mL (-100) H 04/20/17 11:23 Total Protein 6.5 g/dL (6.4-8.9) 04/20/17 09:53 Albumin 3.0 g/dL (3.2-5.2) L 04/20/17 09:53 Globulin 3.5 g/dL (2-4) 04/20/17 09:53 Albumin/Globulin Ratio 0.9 (1-3) L 04/20/17 09:53 TSH 4.42 mcIU/mL (0.34-5.60) 04/16/17 21:35 04/20/17 04/20/17 04/20/17 09:53 13:40 16:51 Troponin I 0.44 H* 1.54 H* 2.85 H* 04/20/17 04/21/17 20:25 05:55 Troponin I 2.53 H* 2.33 H* Diagnostic Imaging: RAYNA today: EF 45%, mild MR and TR. ?able vegetation on apparatus of the mitral valve vs. calcific sclerosis. No vegetations noted on the pacer leads or other valves. The patient was hemodynamically stable throughout the procedure and in normal sinus rhythm. EKG Data: Monitor: NSR. Assessment/Plan 76 yo female, CAD and CABG, VT w/ICD, PVD of legs and carotids with CAD risks of DM, HTN, CHol, FHx admitted septic from Group B strep, uncertain source, possibly groin. RAYNA was planned in CHF found in afib, R[place], [place] appropriate ICD shock. Mild bump in trops. No further dysrhythmias following 2 grams Magnesium and amiodarone 300 mg IVP and increasing her metoprolol. Sepsis: RAYNA showed possible vegetation vs. sclerosis. I defer to Dr. Ford for antibiotic recommendations. No large or extensive area of involvement and no evidence of infection in the pacer leads. VT/VT -Low Magnesium, continue with replacement/eval. -Agree with increase in metoprolol to prior baseline amount. CAD/trops: -RCA severe disease and occluded SVG to RCA, so at risk for ischemia. -Agree with stress test scheduled 04/24/16. CM/elevated PAPr -MR and TR have improved, I suspect PA pr has too. PAF: -On Fondaparinux (for DVT), medication as above for now, but may benefit from an antiarrhythmic in the future.
[2017-04-22] MEDS: Acetaminophen TAB* 325 MG PO PRN (22:16)
[2017-04-22] MEDS: Atorvastatin* 80 MG TAB PO SCH (22:16)
--- NOTE | 2017-04-23 07:32 | PN ---
Subjective Date of Service: 04/23/17 Interval History: Pt is feeling ok this AM. She has no complaints. Nursing notes the patient is appearing slightly depressed about her inability to get around easily. She states she does not want a PICC line. Family History: Unchanged from Admission Social History: Unchanged from Admission Past Medical History: Unchanged from Admission Objective Active Medications: Acetaminophen (Tylenol Tab*) 650 mg PO Q4H PRN PRN Reason: FEVER/PAIN Last Admin: 04/22/17 22:16 Dose: 650 mg Aspirin (Aspirin Ec Low Dose*) 81 mg PO DAILY [facility] Last Admin: 04/22/17 13:24 Dose: 81 mg Atorvastatin Calcium (Lipitor*) 80 mg PO BEDTIME [facility] Last Admin: 04/22/17 22:16 Dose: 80 mg Clopidogrel Bisulfate (Plavix Tab*) 75 mg PO DAILY [facility] Last Admin: 04/22/17 13:24 Dose: 75 mg Dextrose (D50w Syringe 50 Ml*) 12.5 gm IV PUSH .FOR FS < 60 - SS PRN PRN Reason: FS < 60 Fondaparinux (Arixtra*) 7.5 mg SUBCUT DAILY [facility] Last Admin: 04/22/17 13:28 Dose: 7.5 mg Furosemide (Lasix Tab*) 80 mg PO QAM [facility] Last Admin: 04/22/17 13:24 Dose: 80 mg Guaifenesin/Dextromethorphan (Robitussin Dm*) 10 ml PO Q4H PRN PRN Reason: COUGH Last Admin: 04/20/17 20:46 Dose: 10 ml Hyoscyamine (Anaspaz Tab*) 0.125 mg PO TID [facility] Last Admin: 04/22/17 22:15 Dose: 0.125 mg Ceftriaxone Sodium 2 gm/ (Sodium Chloride) 100 mls @ 200 mls/hr IVPB 1300 [facility] Last Admin: 04/22/17 12:58 Dose: 200 mls/hr Insulin Glargine (Lantus(*)) 27 units SUBCUT BEDTIME [facility] Last Admin: 04/22/17 22:17 Dose: 27 unit Insulin Glargine (Lantus(*)) 30 units SUBCUT QAM [facility] Last Admin: 04/22/17 13:35 Dose: 30 units Insulin Human Lispro (Humalog*) 0 units SUBCUT ACHS [facility] PRN Reason: Protocol Last Admin: 04/22/17 22:16 Dose: 6 unit Lactobacillus Rhamnosus (Culturelle*) 1 cap PO BID [facility] Last Admin: 04/22/17 22:16 Dose: 1 cap Lorazepam (Ativan Tab(*)) 0.5 mg PO Q6H PRN PRN Reason: ANXIETY Last Admin: 04/21/17 21:37 Dose: 0.5 mg Magnesium Oxide (Magox 400 Tab*) 400 mg PO DAILY [facility] Last Admin: 04/22/17 13:25 Dose: 400 mg Metoprolol Tartrate (Lopressor Tab*) 50 mg PO BID [facility] Last Admin: 04/22/17 22:16 Dose: 50 mg Nystatin (Nystatin Cream*) 1 applic TOPICAL TID [facility] Last Admin: 04/22/17 22:16 Dose: 1 applic Ondansetron HCl (Zofran Inj*) 4 mg IV Q4H PRN PRN Reason: NAUSEA/VOMITING Pantoprazole Sodium (Protonix Tab (Nf)) 80 mg PO DAILY@0730 [facility] Last Admin: 04/22/17 13:23 Dose: 80 mg Potassium Chloride (Klor Con Er Tab*) 40 meq PO TID [facility] Last Admin: 04/22/17 22:16 Dose: 40 meq Sertraline HCl (Zoloft*) 50 mg PO DAILY [facility] Last Admin: 04/22/17 13:25 Dose: 50 mg Vital Signs - 8 hr 04/23/17 04/23/17 04/23/17 00:00 00:01 00:35 Temperature 101 F Pulse Rate 79 82 Respiratory 19 31 21 Rate Blood Pressure 111/61 (mmHg) O2 Sat by Pulse 94 Oximetry 04/23/17 04/23/17 04/23/17 01:00 01:22 02:00 Temperature Pulse Rate 66 67 Respiratory 22 21 22 Rate Blood Pressure 91/55 100/53 (mmHg) O2 Sat by Pulse 96 94 Oximetry 04/23/17 04/23/17 04/23/17 02:23 03:00 03:13 Temperature Pulse Rate 62 Respiratory 24 21 20 Rate Blood Pressure 88/44 (mmHg) O2 Sat by Pulse 96 Oximetry 04/23/17 04/23/17 04/23/17 03:26 04:00 05:00 Temperature 98.6 F Pulse Rate 61 63 Respiratory 20 19 20 Rate Blood Pressure 104/53 119/60 (mmHg) O2 Sat by Pulse 95 96 Oximetry 04/23/17 04/23/17 04/23/17 05:31 05:50 06:00 Temperature Pulse Rate 67 Respiratory 19 20 18 Rate Blood Pressure 132/61 (mmHg) O2 Sat by Pulse 96 Oximetry Oxygen Devices in Use Now: None Appearance: Elderly female sleeping in bed, easily awakened to voice, NAD Eyes: No Scleral Icterus Ears/Nose/Mouth/Throat: Mucous Membranes Moist Respiratory: Symmetrical Chest Expansion and Respiratory Effort, Clear to Auscultation Cardiovascular: NL Sounds; No Murmurs; No JVD, RRR, No Edema Abdominal: NL Sounds; No Tenderness; No Distention Extremities: No Clubbing, Cyanosis Skin: No Rash or Ulcers Neurological: Alert and Oriented x 3, - - appears mildly depressed Result Diagrams: 04/21/17 05:55 04/21/17 05:55 Microbiology and Other Data: Microbiology 04/19/17 05:55 Aerobic Blood Culture - Preliminary Blood Venous No Growth Day 1 Anaerobic Blood Culture - Preliminary No Growth Day 1 Assess/Plan/Problems-Billing Ms Collins is a 76 yo F with a h/o cardiomyopathy, VTach s/p ICD/pacer, CAD, DVT ( on Arixtra), DM, PVD(s/p femoral bypass), R ICA stenosis >70% presents with a episode of generalized weakness, nausea and epigastric pain. - Patient Problems (1) Ventricular fibrillation Current Visit: Yes Status: Acute Code(s): I49.01 - VENTRICULAR FIBRILLATION SNOMED Code(s): 78749118 Comment: No further ventricular ectopy. Will continue magnesium supplementation with mag oxide 400mg daily. Continue metoprolol 50mg BID. Will plan on a chemical nuclear stress test on 04/24/17 to eval for ischemia as cause of Vfib. More likely decreasing her Bblocker with mild hypomagnesemia is the cause of the Vfib (she had previously been identified to have inducible Vfib on her EP study). (2) Afib Current Visit: Yes Status: Acute Code(s): I48.91 - UNSPECIFIED ATRIAL FIBRILLATION SNOMED Code(s): 80830207 Comment: Just prior to going into Vfib the patient was in afib. She has no history of afib. Will continue metoprolol and arixtra. No antiarrhythmic at this time per Dr. Barba. No further episodes of afib. (3) Bacteremia due to group B Streptococcus Current Visit: Yes Status: Acute Code(s): R78.81 - BACTEREMIA SNOMED Code( s): 724583354954 Comment: RAYNA done yesterday shows possible vegetation vs sclerosis on the subvalvuar side of the MV. Blood cultures have cleared. She will need a PICC but she is nervous about having this placed. Will discuss with Dr. Ford. Continue ceftriaxone 2g IV daily. (4) CAD (coronary artery disease) Current Visit: Yes Status: Acute Code(s): I25.10 - ATHSCL HEART DISEASE OF [place] CORONARY ARTERY W/O ANG PCTRS SNOMED Code(s): 94066437 Comment: Plan for chemical nuclear stress on 04/24/17. Continue ASA, plavix, metoprolol, lipitor and arixtra. Plavix added when her troponin began to climb. Can discuss with cards on if this should be continued after her stress test results are back. (5) Type II diabetes mellitus Current Visit: Yes Status: Acute Comment: Sugars have been higher over the last few days. Resume diabetic diet. Increase AM lantus dose to 32 units. (6) HTN (hypertension) Current Visit: Yes Status: Acute Code(s): I10 - ESSENTIAL (PRIMARY) HYPERTENSION SNOMED Code(s): 17858791 Comment: BP is under good control. Continue current medication regimen. (7) History of ischemic cardiomyopathy Current Visit: Yes Status: Chronic Code(s): Z98.89 - OTHER SPECIFIED POSTPROCEDURAL STATES * DO NOT USE * SNOMED Code(s): 675299755 Comment: Continue lasix and supplemental K and Mg. Pt appears euvolemic. EF on RAYNA yesterday shows a stable EF from prior echo. (8) Hx of deep venous thrombosis Current Visit: Yes Status: Chronic Code(s): Z86.718 - PERSONAL HISTORY OF OTHER VENOUS THROMBOSIS AND EMBOLISM SNOMED Code(s): 810680966 Comment: Continue Arixtra. (9) DVT prophylaxis Current Visit: Yes Status: Acute Onset Date: 07/05/14 Code(s): PXU1057 - SNOMED Code(s): 962001346 Comment: Arixtra (10) Full code status Current Visit: Yes Status: Acute Onset Date: 07/05/14 Code(s): Z78.9 - OTHER SPECIFIED HEALTH STATUS SNOMED Code(s): 735325251 Status and Disposition: .
[2017-04-23] MEDS: Lactobacillus Acidophilu (GG)* 1 CAP CAP PO SCH ×2 (08:35→21:24)
[2017-04-23] MEDS: Metoprolol Tartrate TAB* 50 mg PO SCH ×2 (08:35→21:16)
[2017-04-23] MEDS: Magnesium Oxide TAB* 400 MG PO SCH (08:35)
[2017-04-23] MEDS: Clopidogrel TAB* 75 MG PO SCH (08:35)
[2017-04-23] MEDS: Nystatin CREAM* 15 GM TUBE TOPICAL SCH ×3 (08:36→21:24)
[2017-04-23] MEDS: Potassium Chlor TAB* 20 MEQ TAB.ER PO SCH ×3 (08:36→21:24)
[2017-04-23] MEDS: Furosemide TAB* 40 MG PO SCH (08:36)
[2017-04-23] MEDS: Sertraline* 50 MG TAB PO SCH (08:36)
[2017-04-23] MEDS: Aspirin EC Low Dose* 81 MG TAB.EC PO SCH (08:36)
[2017-04-23] MEDS: Fondaparinux* 7.5 MG/0.6 ML SYRINGE SUBCUT SCH (08:38)
[2017-04-23] MEDS: CMCS: Pantoprazole TAB (NF) 40 MG TAB PO SCH (08:38)
[2017-04-23] MEDS: Hyoscyamine TAB* 0.125 MG PO SCH ×3 (08:38→21:16)
[2017-04-23] MEDS: Insulin LISPRO* 1 UNITS UNIT SUBCUT SCH ×4 (09:03→21:18)
[2017-04-23] MEDS: Insulin GLARGINE(*) 1 UNITS UNIT SUBCUT SCH ×2 (09:04→21:19)
--- NOTE | 2017-04-23 11:43 | PN ---
Cardiology Progress Note Date of Service: 04/23/17 - CC: Sepsis, PAF, VF. Vital Signs: Temp Pulse Resp BP Pulse Ox 98.4 F 65 13 138/63 100 04/23/17 07:35 04/23/17 10:00 04/23/17 11:00 04/23/17 08:00 04/23/17 10:00 Laboratory Results - last 24 hr 04/21/17 04/22/17 04/22/17 05:55 13:03 17:14 POC Glucose (mg/dL) 119 H 213 H Hemoglobin A1c 7.3 H 04/22/17 21:51 POC Glucose (mg/dL) 286 H Hemoglobin A1c Pt not examined, Dr. Adhikari's note reviewed. I agree with all cardiology treatment recommendations and have no additional recommendations at this time. Cardiology will review her upcoming stress test and see prn.
[2017-04-23] MEDS: cefTRIAXone(*) 2 GM in NS 0.9% 100 ML* 100 ML IVPB SCH (14:00)
[2017-04-23] MEDS: Atorvastatin* 80 MG TAB PO SCH (21:16)
[2017-04-24 06:31] LABS: ABS Basophils 0 10^3/ul (0-0.2); ABS Eosinophils 0.1 10^3/ul (0-0.6); ABS Lymphocytes 1.4 10^3/ul (1.0-4.8); ABS Monocytes 0.8 10^3/ul (0-0.8); ABS Neutrophils 4.7 10^3/ul (1.5-7.7); ABS Nucleated RBC 0.01 10^3/ul; Eosinophil % 1.1 % (0-6); Hematocrit 35 % (35-47); Hemoglobin 11.8 g/dl (12.0-16.0); Lymphocyte % 19.9 % (25-47); Mean Corpuscular HGB Conc 33 g/dl (31-36); Mean Corpuscular Hemoglobin 30 pg (27-31); Mean Corpuscular Volume 91 fL (80-97); Mean Platelet Volume 8 um3 (7.4-10.4); Nucleated Red Blood Cells % 0.1; Platelet Count 134 10^3/ul (150-450); Red Blood Count 3.88 10^6/ul (4.0-5.4); Red Cell Distribution Width 14 % (10.5-15)
[2017-04-24 06:42] LABS: EGFR Non-African American 80.3 (>60)
[2017-04-24] MEDS: Insulin LISPRO* 1 UNITS UNIT SUBCUT SCH ×4 (07:58→20:50)
[2017-04-24] MEDS ORDERED: Insulin GLARGINE(*) 1 UNITS UNIT SUBCUT SCH ×2 (08:03→11:47)
[2017-04-24] MEDS ORDERED: Regadenoson* 0.4 MG/5 ML SYRINGE ONE (09:50)
[2017-04-24] MEDS: Hyoscyamine TAB* 0.125 MG PO SCH ×3 (11:33→20:51)
[2017-04-24] MEDS: Aspirin EC Low Dose* 81 MG TAB.EC PO SCH (11:33)
[2017-04-24] MEDS: Lactobacillus Acidophilu (GG)* 1 CAP CAP PO SCH ×2 (11:33→20:51)
[2017-04-24] MEDS: Potassium Chlor TAB* 20 MEQ TAB.ER PO SCH ×3 (11:34→20:54)
[2017-04-24] MEDS: Magnesium Oxide TAB* 400 MG PO SCH ×2 (11:34→20:52)
[2017-04-24] MEDS: Clopidogrel TAB* 75 MG PO SCH (11:34)
[2017-04-24] MEDS: Furosemide TAB* 40 MG PO SCH (11:34)
[2017-04-24] MEDS: Sertraline* 50 MG TAB PO SCH (11:34)
[2017-04-24] MEDS: Metoprolol Tartrate TAB* 50 mg PO SCH ×2 (11:35→20:52)
[2017-04-24] MEDS: Fondaparinux* 7.5 MG/0.6 ML SYRINGE SUBCUT SCH (11:35)
--- NOTE | 2017-04-24 12:05 | RAD ---
Edited for charges. Indication: Evaluate for ischemia. Myocardial perfusion scan was performed utilizing 1 day protocol. 10.3 mCi of technetium 99m tetrofosmin was injected for the rest portion of the study. Pharmacological stress was performed and 25.8 mCi of technetium 99m tetrofosmin was injected for the stress portion of the study. The study is limited as there is no attenuation correction. Patient could also not raise arm above her head. The left ventricle is mildly enlarged. There are reversible changes in the inferior septal wall of moderate size. There is also thickening of the lateral wall on the stress images which reverses on the rest images. Persistent photopenia is noted in the inferior wall. The ejection fraction is 50% at stress. Evaluation of wall motion demonstrates no focal wall motion abnormality. IMPRESSION: Moderate-sized reversible change in the inferior septal wall and in the lateral wall in a mildly enlarged left ventricle. Normal ejection fraction and wall motion. ASSESSMENT: Intermediate risk Based on imaging criteria from ACC/AHA 2002 Guideline Update for the Management of Patients With Chronic Stable Angina Table 23. Noninvasive Risk Stratification. MTDD
[2017-04-24] MEDS ORDERED: diPHENhydraMINE PO* 25 MG PO ONE (12:11)
[2017-04-24] MEDS ORDERED: Diazepam TAB(*) 5 MG PO ONE (12:11)
[2017-04-24] MEDS ORDERED: NS 0.9% 1000 ML* 1,000 ML IV SCH (12:15)
[2017-04-24] MEDS: Insulin GLARGINE(*) 1 UNITS UNIT SUBCUT SCH (12:15)
[2017-04-24] MEDS: CMCS: Pantoprazole TAB (NF) 40 MG TAB PO SCH (12:40)
[2017-04-24] MEDS: Nystatin CREAM* 15 GM TUBE TOPICAL SCH ×3 (12:40→20:56)
--- NOTE | 2017-04-24 13:58 | PN ---
Subjective Date of Service: 04/24/17 Interval History: Pt feels well, anxious prior to cath Family History: Unchanged from Admission Social History: Unchanged from Admission Past Medical History: Unchanged from Admission Objective Active Medications: Acetaminophen (Tylenol Tab*) 650 mg PO Q4H PRN PRN Reason: FEVER/PAIN Last Admin: 04/22/17 22:16 Dose: 650 mg Aspirin (Aspirin Ec Low Dose*) 81 mg PO DAILY [facility] Last Admin: 04/24/17 11:33 Dose: 81 mg Atorvastatin Calcium (Lipitor*) 80 mg PO BEDTIME [facility] Last Admin: 04/23/17 21:16 Dose: 80 mg Clopidogrel Bisulfate (Plavix Tab*) 75 mg PO DAILY [facility] Last Admin: 04/24/17 11:34 Dose: 75 mg Dextrose (D50w Syringe 50 Ml*) 12.5 gm IV PUSH .FOR FS < 60 - SS PRN PRN Reason: FS < 60 Fondaparinux (Arixtra*) 7.5 mg SUBCUT DAILY [facility] Last Admin: 04/24/17 11:35 Dose: 7.5 mg Furosemide (Lasix Tab*) 80 mg PO QAM [facility] Last Admin: 04/24/17 11:34 Dose: 80 mg Guaifenesin/Dextromethorphan (Robitussin Dm*) 10 ml PO Q4H PRN PRN Reason: COUGH Last Admin: 04/20/17 20:46 Dose: 10 ml Hyoscyamine (Anaspaz Tab*) 0.125 mg PO TID [facility] Last Admin: 04/24/17 11:33 Dose: 0.125 mg Ceftriaxone Sodium 2 gm/ (Sodium Chloride) 100 mls @ 200 mls/hr IVPB 1300 [facility] Last Admin: 04/23/17 14:00 Dose: 200 mls/hr Sodium Chloride (Ns 0.9% 1000 Ml*) 1,000 mls @ 100 mls/hr IV .per rate [facility] Magnesium Sulfate (Magnesium Sulfate 2 Gm Iv*) 2 gm in 50 mls @ 50 mls/hr IVPB ONCE ONE Stop: 04/24/17 14:59 Insulin Glargine (Lantus(*)) 20 units SUBCUT BEDTIME [facility] Insulin Glargine (Lantus(*)) 20 units SUBCUT QAM [facility] Insulin Human Lispro (Humalog*) 0 units SUBCUT ACHS [facility] PRN Reason: Protocol Last Admin: 04/24/17 11:34 Dose: Not Given Lactobacillus Rhamnosus (Culturelle*) 1 cap PO BID [facility] Last Admin: 04/24/17 11:33 Dose: 1 cap Lorazepam (Ativan Tab(*)) 0.5 mg PO Q6H PRN PRN Reason: ANXIETY Last Admin: 04/21/17 21:37 Dose: 0.5 mg Magnesium Oxide (Magox 400 Tab*) 400 mg PO BID [facility] Metoprolol Tartrate (Lopressor Tab*) 50 mg PO BID [facility] Last Admin: 04/24/17 11:35 Dose: 50 mg Nystatin (Nystatin Cream*) 1 applic TOPICAL TID [facility] Last Admin: 04/24/17 12:40 Dose: 1 applic Ondansetron HCl (Zofran Inj*) 4 mg IV Q4H PRN PRN Reason: NAUSEA/VOMITING Pantoprazole Sodium (Protonix Tab (Nf)) 80 mg PO DAILY@0730 [facility] Last Admin: 04/24/17 12:40 Dose: 80 mg Potassium Chloride (Klor Con Er Tab*) 40 meq PO TID [facility] Last Admin: 04/24/17 11:34 Dose: 40 meq Sertraline HCl (Zoloft*) 50 mg PO DAILY [facility] Last Admin: 04/24/17 11:34 Dose: 50 mg Vital Signs - 8 hr 04/24/17 04/24/17 07:36 11:33 Temperature 98.5 F Pulse Rate 68 Respiratory 20 20 Rate Blood Pressure 132/44 (mmHg) O2 Sat by Pulse 96 Oximetry Oxygen Devices in Use Now: None Appearance: 76 yo f in nAD, aAOx3 Eyes: No Scleral Icterus, PERRLA Ears/Nose/Mouth/Throat: NL Teeth, Lips, Gums, Mucous Membranes Moist Neck: NL Appearance and Movements; NL JVP, Trachea Midline Respiratory: Symmetrical Chest Expansion and Respiratory Effort Cardiovascular: NL Sounds; No Murmurs; No JVD, RRR Abdominal: NL Sounds; No Tenderness; No Distention Lymphatic: No Cervical Adenopathy Extremities: No Clubbing, Cyanosis, - - trace pedal edema b/l Skin: No Nodules or Sclerosis, - - venous stasis disoloration b/l LE's Neurological: Alert and Oriented x 3, NL Muscle Strength and Tone Result Diagrams: 04/24/17 06:14 04/24/17 06:14 Microbiology and Other Data: Microbiology 04/19/17 05:55 Aerobic Blood Culture - Preliminary Blood Venous No Growth Day 1 Anaerobic Blood Culture - Preliminary No Growth Day 1 Assess/Plan/Problems-Billing Ms Collins is a 76 yo F with a h/o cardiomyopathy, VTach s/p ICD/pacer, CAD, DVT ( on Arixtra), DM, PVD(s/p femoral bypass), R ICA stenosis >70% presents with a episode of generalized weakness, nausea and epigastric pain. - Patient Problems (1) Bacteremia due to group B Streptococcus Comment: RAYNA done 04/22/17 shows possible vegetation vs sclerosis on the subvalvuar side of the MV. Blood cultures have cleared. She will need a PICC but she is nervous about having this placed. Will discuss with Dr. Ford. Continue ceftriaxone 2g IV daily. (2) Ventricular fibrillation Comment: No further ventricular ectopy. Will continue magnesium supplementation with mag oxide 400mg daily and additional IV Mag does given today Continue metoprolol 50mg BID Stress test on 04/24/16 shows an area of ichemia, Juat spoke with Dr. Gill who will cath pt tomorrow, not today due to pt receiving Artixtra dose today already (3) Afib Comment: Just prior to going into Vfib the patient was in afib. She has no history of afib. Will continue metoprolol and arixtra. No antiarrhythmic at this time per Dr. Barba. No further episodes of afib. (4) History of ischemic cardiomyopathy Comment: Continue lasix and supplemental K and Mg. Pt appears euvolemic. EF on RAYNA 04/22/17 shows a stable EF from prior echo. (5) Hx of deep venous thrombosis Comment: Continue Arixtra(held prior to cath) (6) DVT prophylaxis Comment: Arixtra held for cath in AM (7) Type II diabetes mellitus Comment: Hypoglycemic in aM. Will hold her bedtime Lantus Status and Disposition: .
[2017-04-24] MEDS ORDERED: Magnesium Sulfate 2 GM IV* 2 GM/50 ML BAG IVPB ONE (14:00)
[2017-04-24] MEDS ORDERED: Midazolam* 1 MG/ML 10 ML VIAL (10 MG) ONE (14:03)
[2017-04-24] MEDS ORDERED: Lidocaine 1% INJ* 10 MG/ML 30 ML SDV ONE (14:03)
[2017-04-24] MEDS ORDERED: fentaNYL* 50 MCG/ML 2 ML VIAL (100 MCG VIAL) ONE (14:03)
[2017-04-24] MEDS ORDERED: Heparin 2 UNITS/ML IVPREMIX* 0 ML IV ONE (14:03)
[2017-04-24] MEDS ORDERED: Iohexol 350 (CONTRAST) 200 ML MDV IV ONE (14:03)
[2017-04-24] MEDS: cefTRIAXone(*) 2 GM in NS 0.9% 100 ML* 100 ML IVPB SCH (16:18)
--- NOTE | 2017-04-24 18:17 | PN ---
Progress Note - Progress Note Date of Service: 04/24/17 SOAP: Subjective: CC: bacteremia HPI: 76 year old woman with ICD, recent groin/perineal cellulitis admitted with nausea, found to be bacteremic. VF/Torsades while here, positive troponin, abnl stress test. No fever, rash, or diarrhea. The redness in her pelvis is gone. Objective: Vital Signs Temp 36.2 C 04/24/17 15:15 Pulse 64 04/24/17 15:15 Resp 16 04/24/17 16:22 BP 132/45 04/24/17 15:15 Pulse Ox 95 04/24/17 15:15 Intake & Output 04/23/17 04/24/17 04/24/17 18:59 06:59 18:59 Intake Total 1351 0 45 Balance 1351 0 45 Intake: IV Fluids 141 NS 141 IVPB 45 MAGNESIUM 45 Oral 1210 0 0 Other: Estimated Void Small Medium # Bowel Movements 1 0 Estimated Stool Amount Small Small # Voids 1 1 Gen:awake, no distress HEENT: no thrush Heart:RRR no murmur LUngs:CTA BL Skin: no rash Microbiology 04/19/17 05:55 Blood Venous Aerobic Blood Culture - Final No Growth Day 5 04/19/17 05:55 Blood Venous Anaerobic Blood Culture - Final No Growth Day 5 Laboratory Results - last 24 hr 04/23/17 04/24/17 04/24/17 20:31 06:14 06:14 WBC 7.0 RBC 3.88 L Hgb 11.8 L Hct 35 MCV 91 MCH 30 MCHC 33 RDW 14 Plt Count 134 L MPV 8 Neut % (Auto) 67.3 Lymph % (Auto) 19.9 L Ceiba % (Auto) 11.0 H Eos % (Auto) 1.1 Baso % (Auto) 0.7 Absolute Neuts (auto) 4.7 Absolute Lymphs (auto) 1.4 Absolute Monos (auto) 0.8 Absolute Eos (auto) 0.1 Absolute Basos (auto) 0 Absolute Nucleated RBC 0.01 Nucleated RBC % 0.1 Sodium 133 Potassium 3.7 Chloride 101 Carbon Dioxide 28 Anion Gap 4 BUN 22 Creatinine 0.71 Est GFR ( Amer) 103.2 Est GFR (Non-Af Amer) 80.3 BUN/Creatinine Ratio 31.0 H Glucose 62 L POC Glucose (mg/dL) 200 H Calcium 9.2 Magnesium 1.6 L 04/24/17 04/24/17 04/24/17 07:26 07:41 11:32 WBC RBC Hgb Hct MCV MCH MCHC RDW Plt Count MPV Neut % (Auto) Lymph % (Auto) Ceiba % (Auto) Eos % (Auto) Baso % (Auto) Absolute Neuts (auto) Absolute Lymphs (auto) Absolute Monos (auto) Absolute Eos (auto) Absolute Basos (auto) Absolute Nucleated RBC Nucleated RBC % Sodium Potassium Chloride Carbon Dioxide Anion Gap BUN Creatinine Est GFR ( Amer) Est GFR (Non-Af Amer) BUN/Creatinine Ratio Glucose POC Glucose (mg/dL) 56 L 79 129 H Calcium Magnesium 04/24/17 16:35 WBC RBC Hgb Hct MCV MCH MCHC RDW Plt Count MPV Neut % (Auto) Lymph % (Auto) Ceiba % (Auto) Eos % (Auto) Baso % (Auto) Absolute Neuts (auto) Absolute Lymphs (auto) Absolute Monos (auto) Absolute Eos (auto) Absolute Basos (auto) Absolute Nucleated RBC Nucleated RBC % Sodium Potassium Chloride Carbon Dioxide Anion Gap BUN Creatinine Est GFR ( Amer) Est GFR (Non-Af Amer) BUN/Creatinine Ratio Glucose POC Glucose (mg/dL) 176 H Calcium Magnesium Assessment: 1. Grp B Strep bacteremia due to cellulitis. RAYNA showed subvalvular .9 cm calcified structure sclerosis vs vegetation. The fact that it is subvalvular and calcified argues against vegetation. I discussed this with Dr Livingston who agrees and felt that it looks most like sclerosis. 2. Presence of ICD 3. torsades/VF 4. NSTEMI Plan: 1. continue ceftriaxone day 09/03 with weekly cbc, cmp, crp 35 minutes floor time >50% in counseling regarding RAYNA results and abx plans Discussed w Dr Barba and Dr Lind
[2017-04-24] MEDS: Atorvastatin* 80 MG TAB PO SCH (20:54)
[2017-04-25] MEDS ORDERED: NS 0.9% 1000 ML* 1,000 ML IV SCH ×2 (05:00→13:15)
[2017-04-25 06:49] LABS: EGFR Non-African American 99.4 (>60)
[2017-04-25] MEDS: Aspirin EC Low Dose* 81 MG TAB.EC PO SCH (07:42)
[2017-04-25] MEDS: Clopidogrel TAB* 75 MG PO SCH (07:42)
[2017-04-25] MEDS: Metoprolol Tartrate TAB* 50 mg PO SCH ×2 (07:43→21:16)
[2017-04-25] MEDS: Hyoscyamine TAB* 0.125 MG PO SCH ×3 (07:43→21:19)
[2017-04-25] MEDS: Sertraline* 50 MG TAB PO SCH (07:43)
[2017-04-25] MEDS: CMCS: Pantoprazole TAB (NF) 40 MG TAB PO SCH (07:46)
[2017-04-25] MEDS: Lactobacillus Acidophilu (GG)* 1 CAP CAP PO SCH ×2 (07:46→21:16)
[2017-04-25] MEDS: Magnesium Oxide TAB* 400 MG PO SCH ×2 (07:46→21:16)
[2017-04-25] MEDS: Potassium Chlor TAB* 20 MEQ TAB.ER PO SCH ×2 (07:48→15:52)
[2017-04-25] MEDS: Insulin LISPRO* 1 UNITS UNIT SUBCUT SCH ×4 (07:54→21:16)
[2017-04-25] MEDS ORDERED: Heparin 2 UNITS/ML IVPREMIX* 3,000 ML IV ONE (09:14)
[2017-04-25] MEDS ORDERED: fentaNYL* 50 MCG/ML 2 ML VIAL (100 MCG VIAL) ONE (09:14)
[2017-04-25] MEDS ORDERED: Midazolam* 1 MG/ML 10 ML VIAL (10 MG) ONE (09:15)
[2017-04-25] MEDS ORDERED: Lidocaine 1% INJ* 10 MG/ML 30 ML SDV ONE (09:15)
[2017-04-25] MEDS ORDERED: Iohexol 350 (CONTRAST) 200 ML MDV IV ONE ×2 (09:16→11:19)
[2017-04-25] MEDS ORDERED: Heparin(*) 1000 UNIT/ML 10 ML VIAL CATH LAB IV ONE (10:26)
[2017-04-25] MEDS ORDERED: nitroGLYCERIN DRIP* 25,000 MCG/250 ML BTL ONE ×2 (10:27→12:33)
[2017-04-25] MEDS ORDERED: Bivalirudin(*) 250 MG VIAL ONE ×2 (10:59→12:47)
[2017-04-25] MEDS ORDERED: Heparin 2 UNITS/ML IVPREMIX* 1,000 ML IV ONE (12:52)
[2017-04-25] MEDS ORDERED: Nitroglycerin TAB 0.4 MG* 0.4 MG TAB SL PRN (13:08)
[2017-04-25] MEDS ORDERED: fentaNYL* 50 MCG/ML 2 ML VIAL (100 MCG VIAL) IV PRN (13:08)
[2017-04-25] MEDS: Furosemide TAB* 40 MG PO SCH (14:47)
[2017-04-25] MEDS: Nystatin CREAM* 15 GM TUBE TOPICAL SCH ×3 (14:47→21:19)
[2017-04-25] MEDS: Acetaminophen TAB* 325 MG PO PRN (15:51)
[2017-04-25] MEDS: cefTRIAXone(*) 2 GM in NS 0.9% 100 ML* 100 ML IVPB SCH (15:51)
--- NOTE | 2017-04-25 16:29 | PN ---
Subjective Date of Service: 04/25/17 - CC: VF arrest, abnormal stress, now s/p cardiac catheterization. Interval History: No new c/o, comfortable post cardiac catheterization and stent. Medications Active Medications: Acetaminophen (Tylenol Tab*) 650 mg PO Q4H PRN PRN Reason: FEVER/PAIN Last Admin: 04/25/17 15:51 Dose: 650 mg Aspirin (Aspirin Ec Low Dose*) 81 mg PO DAILY [facility] Last Admin: 04/25/17 07:42 Dose: 81 mg Atorvastatin Calcium (Lipitor*) 80 mg PO BEDTIME [facility] Last Admin: 04/24/17 20:54 Dose: 80 mg Clopidogrel Bisulfate (Plavix Tab*) 75 mg PO DAILY [facility] Last Admin: 04/25/17 07:42 Dose: 75 mg Dextrose (D50w Syringe 50 Ml*) 12.5 gm IV PUSH .FOR FS < 60 - SS PRN PRN Reason: FS < 60 Fentanyl Citrate (Fentanyl*) 25 mcg IV Q2H PRN PRN Reason: PAIN Furosemide (Lasix Tab*) 80 mg PO QAM [facility] Last Admin: 04/25/17 14:47 Dose: Not Given Guaifenesin/Dextromethorphan (Robitussin Dm*) 10 ml PO Q4H PRN PRN Reason: COUGH Last Admin: 04/20/17 20:46 Dose: 10 ml Hyoscyamine (Anaspaz Tab*) 0.125 mg PO TID [facility] Last Admin: 04/25/17 15:51 Dose: 0.125 mg Ceftriaxone Sodium 2 gm/ (Sodium Chloride) 100 mls @ 200 mls/hr IVPB 1300 [facility] Last Admin: 04/25/17 15:51 Dose: 200 mls/hr Sodium Chloride (Ns 0.9% 1000 Ml*) 1,000 mls @ 100 mls/hr IV .per rate [facility] Insulin Human Lispro (Humalog*) 0 units SUBCUT ACHS [facility] PRN Reason: Protocol Last Admin: 04/25/17 14:47 Dose: Not Given Lactobacillus Rhamnosus (Culturelle*) 1 cap PO BID [facility] Last Admin: 04/25/17 07:46 Dose: 1 cap Lorazepam (Ativan Tab(*)) 0.5 mg PO Q6H PRN PRN Reason: ANXIETY Last Admin: 04/21/17 21:37 Dose: 0.5 mg Magnesium Oxide (Magox 400 Tab*) 400 mg PO BID [facility] Last Admin: 04/25/17 07:46 Dose: 400 mg Metoprolol Tartrate (Lopressor Tab*) 50 mg PO BID [facility] Last Admin: 04/25/17 07:43 Dose: 50 mg Nitroglycerin (Nitroglycerin Tab 0.4 Mg*) 0.4 mg SL Q5M PRN PRN Reason: ANGINA Nystatin (Nystatin Cream*) 1 applic TOPICAL TID [facility] Last Admin: 04/25/17 14:47 Dose: Not Given Ondansetron HCl (Zofran Inj*) 4 mg IV Q4H PRN PRN Reason: NAUSEA/VOMITING Pantoprazole Sodium (Protonix Tab (Nf)) 80 mg PO DAILY@0730 [facility] Last Admin: 04/25/17 07:46 Dose: 80 mg Potassium Chloride (Klor Con Er Tab*) 40 meq PO TID [facility] Last Admin: 04/25/17 15:52 Dose: 40 meq Sertraline HCl (Zoloft*) 50 mg PO DAILY [facility] Last Admin: 04/25/17 07:43 Dose: 50 mg Objective Vital Signs: Temp Pulse Resp BP Pulse Ox 97.6 F 61 25 159/65 92 04/25/17 15:53 04/25/17 14:01 04/25/17 14:01 04/25/17 14:00 04/25/17 14:01 Oxygen Devices in Use Now: None, Nasal Cannula Appearance: older woman, overweight, lying flat in bed, comfortable. Eyes: PERRLA Ears/Nose/Mouth/Throat: Clear Oropharnyx, Mucous Membranes Moist Neck: Trachea Midline, No Thyroid Enlargement, Masses Respiratory: Symmetrical Chest Expansion and Respiratory Effort, Clear to Auscultation - laterally. Cardiovascular: NL Sounds; No Murmurs; No JVD, RRR Abdominal: NL Sounds; No Tenderness; No Distention, No Hepatosplenomegaly Extremities: No Edema, No Clubbing, Cyanosis Skin: No Rash or Ulcers Neurological: Alert and Oriented x 3 - [place] [employer] [place], no gross deficits. Lines/Tubes/Other Access: Clean, Dry and Intact Peripheral IV Laboratory Results: 04/24/17 06:14 04/25/17 05:52 INR (Anticoag Therapy) 0.97 (0.77-1.02) 04/20/17 09:53 APTT 32.0 seconds (26.0-36.3) 04/20/17 09:53 Total Bilirubin 0.70 mg/dL (0.2-1.0) 04/20/17 09:53 AST 30 U/L (13-39) 04/20/17 09:53 ALT 26 U/L (7-52) 04/20/17 09:53 Alkaline Phosphatase 88 U/L (34-104) 04/20/17 09:53 B-Natriuretic Peptide 562 pg/mL (-100) H 04/20/17 11:23 Total Protein 6.5 g/dL (6.4-8.9) 04/20/17 09:53 Albumin 3.0 g/dL (3.2-5.2) L 04/20/17 09:53 Globulin 3.5 g/dL (2-4) 04/20/17 09:53 Albumin/Globulin Ratio 0.9 (1-3) L 04/20/17 09:53 TSH 4.42 mcIU/mL (0.34-5.60) 04/16/17 21:35 04/20/17 04/20/17 04/20/17 09:53 13:40 16:51 Troponin I 0.44 H* 1.54 H* 2.85 H* 04/20/17 04/21/17 20:25 05:55 Troponin I 2.53 H* 2.33 H* Diagnostic Imaging: RAYNA Sunday04/22/17: EF 45%, mild MR and TR. ?able vegetation on apparatus of the mitral valve vs. calcific sclerosis. No vegetations noted on the pacer leads or other valves. The patient was hemodynamically stable throughout the procedure and in normal sinus rhythm. Cardiac catheterization today showed occlusion in the circumflex (Cx dominant) felt to be culprit lesion and stented. Extensive [place] CAD and graft to non dominant RCA is occluded, Dr. Gill's dictated note to follow. EKG Data: Monitor: NSR. Assessment/Plan 76 yo female, CAD and CABG, VT w/ICD, PVD of legs and carotids with CAD risks of DM, HTN, CHol, FHx admitted septic from Group B strep, uncertain source, possibly groin. RAYNA was planned in CHF found in afib, RVR, she then went into [place] X2 with appropriate ICD shock. Mild bump in trops. No further dysrhythmias following 2 grams Magnesium and amiodarone 300 mg IVP and increasing her metoprolol. VT/VT -Low Magnesium, continue with replacement/eval. -Continue metoprolol. -May be at lower risk of recurrence s/p stent and less ischemia (but still at risk via scar). CAD: -s/p stent to Cx today. -Continue with aggressive CAD risk factor modification. PAF: -On Fondaparinux (for DVT), medication as above for now, but may benefit from an antiarrhythmic in the future. Sepsis: RAYNA showed possible vegetation vs. sclerosis, more likely sclerosis. BP: -High, if remains high further out from procedure we may need to adjust medications, especially with elevated BNP, ? change metoprolol to Coreg? Follow for now.
--- NOTE | 2017-04-25 18:31 | PN ---
Subjective Date of Service: 04/25/17 Interval History: Pt feels "achy in right groin" after the cath. Family History: Unchanged from Admission Social History: Unchanged from Admission Past Medical History: Unchanged from Admission Objective Active Medications: Acetaminophen (Tylenol Tab*) 650 mg PO Q4H PRN PRN Reason: FEVER/PAIN Last Admin: 04/25/17 15:51 Dose: 650 mg Aspirin (Aspirin Ec Low Dose*) 81 mg PO DAILY [facility] Last Admin: 04/25/17 07:42 Dose: 81 mg Atorvastatin Calcium (Lipitor*) 80 mg PO BEDTIME [facility] Last Admin: 04/24/17 20:54 Dose: 80 mg Clopidogrel Bisulfate (Plavix Tab*) 75 mg PO DAILY [facility] Last Admin: 04/25/17 07:42 Dose: 75 mg Dextrose (D50w Syringe 50 Ml*) 12.5 gm IV PUSH .FOR FS < 60 - SS PRN PRN Reason: FS < 60 Fentanyl Citrate (Fentanyl*) 25 mcg IV Q2H PRN PRN Reason: PAIN Furosemide (Lasix Tab*) 80 mg PO QAM [facility] Last Admin: 04/25/17 14:47 Dose: Not Given Guaifenesin/Dextromethorphan (Robitussin Dm*) 10 ml PO Q4H PRN PRN Reason: COUGH Last Admin: 04/20/17 20:46 Dose: 10 ml Hyoscyamine (Anaspaz Tab*) 0.125 mg PO TID [facility] Last Admin: 04/25/17 15:51 Dose: 0.125 mg Ceftriaxone Sodium 2 gm/ (Sodium Chloride) 100 mls @ 200 mls/hr IVPB 1300 [facility] Last Admin: 04/25/17 15:51 Dose: 200 mls/hr Sodium Chloride (Ns 0.9% 1000 Ml*) 1,000 mls @ 100 mls/hr IV .per rate [facility] Insulin Human Lispro (Humalog*) 0 units SUBCUT ACHS [facility] PRN Reason: Protocol Last Admin: 04/25/17 14:47 Dose: Not Given Lactobacillus Rhamnosus (Culturelle*) 1 cap PO BID [facility] Last Admin: 04/25/17 07:46 Dose: 1 cap Lorazepam (Ativan Tab(*)) 0.5 mg PO Q6H PRN PRN Reason: ANXIETY Last Admin: 04/21/17 21:37 Dose: 0.5 mg Magnesium Oxide (Magox 400 Tab*) 400 mg PO BID [facility] Last Admin: 04/25/17 07:46 Dose: 400 mg Metoprolol Tartrate (Lopressor Tab*) 50 mg PO BID [facility] Last Admin: 04/25/17 07:43 Dose: 50 mg Nitroglycerin (Nitroglycerin Tab 0.4 Mg*) 0.4 mg SL Q5M PRN PRN Reason: ANGINA Nystatin (Nystatin Cream*) 1 applic TOPICAL TID [facility] Last Admin: 04/25/17 18:23 Dose: Not Given Ondansetron HCl (Zofran Inj*) 4 mg IV Q4H PRN PRN Reason: NAUSEA/VOMITING Pantoprazole Sodium (Protonix Tab (Nf)) 80 mg PO DAILY@0730 [facility] Last Admin: 04/25/17 07:46 Dose: 80 mg Potassium Chloride (Klor Con Er Tab*) 40 meq PO TID [facility] Last Admin: 04/25/17 15:52 Dose: 40 meq Sertraline HCl (Zoloft*) 50 mg PO DAILY [facility] Last Admin: 04/25/17 07:43 Dose: 50 mg Vital Signs - 8 hr 04/25/17 04/25/17 04/25/17 13:37 13:45 14:00 Temperature Pulse Rate 61 60 60 Respiratory 17 17 20 Rate Blood Pressure 150/62 151/60 159/65 (mmHg) O2 Sat by Pulse 92 90 92 Oximetry 04/25/17 04/25/17 04/25/17 14:01 15:53 16:00 Temperature 97.6 F Pulse Rate 61 Respiratory 25 19 Rate Blood Pressure (mmHg) O2 Sat by Pulse 92 Oximetry Oxygen Devices in Use Now: None Appearance: 76 yo f in nAD, AAOx3 Eyes: No Scleral Icterus, PERRLA Ears/Nose/Mouth/Throat: NL Teeth, Lips, Gums, Mucous Membranes Moist Neck: NL Appearance and Movements; NL JVP, Trachea Midline Respiratory: Symmetrical Chest Expansion and Respiratory Effort, Clear to Auscultation Cardiovascular: NL Sounds; No Murmurs; No JVD, RRR Abdominal: NL Sounds; No Tenderness; No Distention Lymphatic: No Cervical Adenopathy Extremities: No Edema, No Clubbing, Cyanosis Skin: No Nodules or Sclerosis, - - venous stasis brown skin discoloration b/l Neurological: Alert and Oriented x 3, NL Muscle Strength and Tone Result Diagrams: 04/24/17 06:14 04/25/17 05:52 Microbiology and Other Data: Microbiology 04/19/17 05:55 Aerobic Blood Culture - Preliminary Blood Venous No Growth Day 1 Anaerobic Blood Culture - Preliminary No Growth Day 1 Assess/Plan/Problems-Billing Ms Collins is a 76 yo F with a h/o cardiomyopathy, VTach s/p ICD/pacer, CAD, DVT ( on Arixtra), DM, PVD(s/p femoral bypass), R ICA stenosis >70% presents with a episode of generalized weakness, nausea and epigastric pain. - Patient Problems (1) Bacteremia due to group B Streptococcus Comment: RAYNA done 04/22/17 shows possible vegetation vs sclerosis on the subvalvuar side of the MV. Blood cultures have cleared. She will need a PICC in aM. D/w with Dr. Ford, plan for ceftriaxone 2g IV daily x 2 weeks total (2) Ventricular fibrillation Comment: No further ventricular ectopy. Will continue magnesium supplementation with mag oxide 400mg BID Continue metoprolol 50mg BID Stress test on 04/24/16 showed an area of ichemia, s/p cath on 05/05 16 with angioplasty of OM2, and stent on circumflex artery Artixtra held (3) Afib Comment: Just prior to going into Vfib the patient was in afib. She has no history of afib. Will continue metoprolol. No antiarrhythmic at this time per Dr. Barba. No further episodes of afib. (4) History of ischemic cardiomyopathy Comment: Continue lasix and supplemental K and Mg. Pt appears euvolemic. EF on RAYNA 04/22/17 shows a stable EF from prior echo. (5) Hx of deep venous thrombosis Comment: Arixtra-held prior to cath (6) DVT prophylaxis Comment: Arixtra held for cath in AM (7) Type II diabetes mellitus Comment: lantus held, cont ISS. Status and Disposition: .
[2017-04-25] MEDS ORDERED: nitroGLYCERIN DRIP* 25,000 MCG/250 ML BTL IV SCH (19:00)
[2017-04-25] MEDS: Atorvastatin* 80 MG TAB PO SCH (21:16)
[2017-04-25] MEDS: Potassium Chloride LIQUID* 20 MEQ PACKET PO SCH (21:17)
[2017-04-26 06:46] LABS: ABS Basophils 0.1 10^3/ul (0-0.2); ABS Eosinophils 0.1 10^3/ul (0-0.6); ABS Lymphocytes 1.3 10^3/ul (1.0-4.8); ABS Monocytes 0.4 10^3/ul (0-0.8); ABS Neutrophils 4.7 10^3/ul (1.5-7.7); ABS Nucleated RBC 0 10^3/ul; Eosinophil % 2.1 % (0-6); Hematocrit 31 % (35-47); Hemoglobin 10.3 g/dl (12.0-16.0); Lymphocyte % 19.4 % (25-47); Mean Corpuscular HGB Conc 33 g/dl (31-36); Mean Corpuscular Hemoglobin 31 pg (27-31); Mean Corpuscular Volume 92 fL (80-97); Mean Platelet Volume 8 um3 (7.4-10.4); Nucleated Red Blood Cells % 0.1; Platelet Count 135 10^3/ul (150-450); Red Blood Count 3.35 10^6/ul (4.0-5.4); Red Cell Distribution Width 14 % (10.5-15); White Blood Count 6.6 10^3/ul (3.5-10.8)
[2017-04-26 06:57] LABS: EGFR Non-African American 147.1 (>60)
[2017-04-26] MEDS: Insulin LISPRO* 1 UNITS UNIT SUBCUT SCH ×4 (08:00→22:47)
--- NOTE | 2017-04-26 08:06 | PN ---
Subjective Date of Service: 04/26/17 Interval History: Pt has no new complaints. concerned about getting a PICC and going home with daily visits to infusion center. D/w pt all the options including STR Family History: Unchanged from Admission Social History: Unchanged from Admission Past Medical History: Unchanged from Admission Objective Active Medications: Acetaminophen (Tylenol Tab*) 650 mg PO Q4H PRN PRN Reason: FEVER/PAIN Last Admin: 04/25/17 15:51 Dose: 650 mg Aspirin (Aspirin Ec Low Dose*) 81 mg PO DAILY [facility] Last Admin: 04/25/17 07:42 Dose: 81 mg Atorvastatin Calcium (Lipitor*) 80 mg PO BEDTIME [facility] Last Admin: 04/25/17 21:16 Dose: 80 mg Clopidogrel Bisulfate (Plavix Tab*) 75 mg PO DAILY [facility] Last Admin: 04/25/17 07:42 Dose: 75 mg Dextrose (D50w Syringe 50 Ml*) 12.5 gm IV PUSH .FOR FS < 60 - SS PRN PRN Reason: FS < 60 Fentanyl Citrate (Fentanyl*) 25 mcg IV Q2H PRN PRN Reason: PAIN Fondaparinux (Arixtra*) 7.5 mg SUBCUT Q24HR [facility] Furosemide (Lasix Tab*) 80 mg PO QAM [facility] Last Admin: 04/25/17 14:47 Dose: Not Given Guaifenesin/Dextromethorphan (Robitussin Dm*) 10 ml PO Q4H PRN PRN Reason: COUGH Last Admin: 04/20/17 20:46 Dose: 10 ml Hyoscyamine (Anaspaz Tab*) 0.125 mg PO TID [facility] Last Admin: 04/25/17 21:19 Dose: 0.125 mg Ceftriaxone Sodium 2 gm/ (Sodium Chloride) 100 mls @ 200 mls/hr IVPB 1300 [facility] Last Admin: 04/25/17 15:51 Dose: 200 mls/hr Nitroglycerin/Dextrose (Nitroglycerin Drip*) 25,000 mcg in 250 mls @ 0.6 mls/ hr IV .(Initial Rate) [facility]; 1 MCG/MIN PRN Reason: Protocol Insulin Human Lispro (Humalog*) 0 units SUBCUT ACHS [facility] PRN Reason: Protocol Last Admin: 04/25/17 21:16 Dose: 4 unit Lactobacillus Rhamnosus (Culturelle*) 1 cap PO BID [facility] Last Admin: 04/25/17 21:16 Dose: 1 cap Lorazepam (Ativan Tab(*)) 0.5 mg PO Q6H PRN PRN Reason: ANXIETY Last Admin: 04/21/17 21:37 Dose: 0.5 mg Magnesium Oxide (Magox 400 Tab*) 400 mg PO BID [facility] Last Admin: 04/25/17 21:16 Dose: 400 mg Metoprolol Tartrate (Lopressor Tab*) 50 mg PO BID [facility] Last Admin: 04/25/17 21:16 Dose: 50 mg Nitroglycerin (Nitroglycerin Tab 0.4 Mg*) 0.4 mg SL Q5M PRN PRN Reason: ANGINA Nystatin (Nystatin Cream*) 1 applic TOPICAL TID [facility] Last Admin: 04/25/17 21:19 Dose: Not Given Ondansetron HCl (Zofran Inj*) 4 mg IV Q4H PRN PRN Reason: NAUSEA/VOMITING Pantoprazole Sodium (Protonix Tab (Nf)) 80 mg PO DAILY@0730 [facility] Last Admin: 04/25/17 07:46 Dose: 80 mg Potassium Chloride (Klor-Con Liquid*) 40 meq PO TID [facility] Last Admin: 04/25/17 21:17 Dose: 40 meq Sertraline HCl (Zoloft*) 50 mg PO DAILY [facility] Last Admin: 04/25/17 07:43 Dose: 50 mg Vital Signs - 8 hr 04/26/17 04/26/17 04/26/17 00:15 00:31 01:00 Temperature 98.9 F Pulse Rate 55 Respiratory 25 20 Rate Blood Pressure 135/60 132/60 (mmHg) O2 Sat by Pulse 94 Oximetry 04/26/17 04/26/17 04/26/17 01:01 02:00 02:01 Temperature Pulse Rate 55 57 56 Respiratory 18 17 18 Rate Blood Pressure 141/58 (mmHg) O2 Sat by Pulse 95 96 96 Oximetry 04/26/17 04/26/17 04/26/17 02:31 02:44 02:51 Temperature Pulse Rate 51 52 51 Respiratory 17 18 17 Rate Blood Pressure 138/52 130/67 137/48 (mmHg) O2 Sat by Pulse 96 96 95 Oximetry 04/26/17 04/26/17 04/26/17 03:00 03:01 03:31 Temperature Pulse Rate 53 51 56 Respiratory 17 18 16 Rate Blood Pressure 142/51 137/54 (mmHg) O2 Sat by Pulse 95 94 95 Oximetry 04/26/17 04/26/17 04/26/17 03:33 04:00 04:30 Temperature 97.0 F Pulse Rate 57 54 Respiratory 19 15 Rate Blood Pressure 119/42 108/46 (mmHg) O2 Sat by Pulse 93 92 Oximetry 04/26/17 04/26/17 04/26/17 05:00 05:01 05:31 Temperature Pulse Rate 57 56 56 Respiratory 18 17 16 Rate Blood Pressure 86/61 129/50 (mmHg) O2 Sat by Pulse 91 94 94 Oximetry 04/26/17 04/26/17 04/26/17 06:00 06:30 07:00 Temperature Pulse Rate 57 59 55 Respiratory 18 23 16 Rate Blood Pressure 118/46 103/66 138/42 (mmHg) O2 Sat by Pulse 92 95 95 Oximetry 04/26/17 04/26/17 07:01 07:31 Temperature Pulse Rate 56 62 Respiratory 14 22 Rate Blood Pressure 123/42 (mmHg) O2 Sat by Pulse 98 Oximetry Oxygen Devices in Use Now: None Appearance: 76 yo f in nAD, aAOx3 Eyes: No Scleral Icterus, PERRLA Ears/Nose/Mouth/Throat: NL Teeth, Lips, Gums, Mucous Membranes Moist Neck: NL Appearance and Movements; NL JVP, Trachea Midline Respiratory: Symmetrical Chest Expansion and Respiratory Effort, Clear to Auscultation Cardiovascular: NL Sounds; No Murmurs; No JVD, RRR Abdominal: NL Sounds; No Tenderness; No Distention Lymphatic: No Cervical Adenopathy Extremities: No Edema, No Clubbing, Cyanosis Skin: No Nodules or Sclerosis, - - venous stasis changes b/l LE's Neurological: Alert and Oriented x 3, NL Muscle Strength and Tone Result Diagrams: 04/26/17 06:30 04/26/17 06:30 Microbiology and Other Data: Microbiology 04/19/17 05:55 Aerobic Blood Culture - Preliminary Blood Venous No Growth Day 1 Anaerobic Blood Culture - Preliminary No Growth Day 1 Assess/Plan/Problems-Billing Dennis is a 76 yo F with a h/o cardiomyopathy, VTach s/p ICD/pacer, CAD, DVT ( on Arixtra), DM, PVD(s/p femoral bypass), R ICA stenosis >70% presents with a episode of generalized weakness, nausea and epigastric pain. - Patient Problems (1) Bacteremia due to group B Streptococcus Comment: RAYNA done 04/22/17 shows possible vegetation vs sclerosis on the subvalvuar side of the MV. Blood cultures have cleared. As per d/w cardiology and ID pt likely had only bacteremia and she subvalvular lesion is sclerosis and less likley endocarditis. She will need a PICC . D/w with Dr. Ford, plan for ceftriaxone 2g IV daily x 2 weeks total (2) Ventricular fibrillation Comment: No further ventricular ectopy. Will continue magnesium supplementation with mag oxide 400mg BID Continue metoprolol 50mg BID Stress test on 04/24/16 showed an area of ichemia, s/p cath on 05/05 16 with angioplasty of OM2, and stent on circumflex artery Artixtra held to be restarted today PM (3) Afib Comment: Just prior to going into Vfib the patient was in afib. She has no history of afib. Will continue metoprolol. No antiarrhythmic at this time per Dr. Barba. No further episodes of afib. (4) History of ischemic cardiomyopathy Comment: Continue lasix and supplemental K and Mg. Pt appears euvolemic. EF on RAYNA 04/22/17 shows a stable EF from prior echo. (5) Hx of deep venous thrombosis Comment: Arixtra-held prior to cath, willl be restarted today (6) DVT prophylaxis Comment: Arixtra held for cath in AM (7) Type II diabetes mellitus Comment: lantus restarted at a lower dose, cont ISS. Status and Disposition: .transfer out of ICU today
[2017-04-26] MEDS: Insulin GLARGINE(*) 1 UNITS UNIT SUBCUT SCH ×2 (08:39→22:46)
[2017-04-26] MEDS: CMCS: Pantoprazole TAB (NF) 40 MG TAB PO SCH (08:42)
[2017-04-26] MEDS ORDERED: Aspirin Low Dose CHEW TAB* 81 MG PO SCH (09:00)
--- NOTE | 2017-04-26 09:09 | PN ---
Subjective Date of Service: 04/26/17 Interval History: f/u PCI No chest discomfort or dyspnea Dr. Gill examined groin no arrhythmias on telemetry, ekg this AM, sinus bradycardia 57 bpm, incomplete LBBB Medications Active Medications: Acetaminophen (Tylenol Tab*) 650 mg PO Q4H PRN PRN Reason: FEVER/PAIN Last Admin: 04/25/17 15:51 Dose: 650 mg Aspirin (Aspirin Ec Low Dose*) 81 mg PO DAILY [facility] Last Admin: 04/25/17 07:42 Dose: 81 mg Atorvastatin Calcium (Lipitor*) 80 mg PO BEDTIME [facility] Last Admin: 04/25/17 21:16 Dose: 80 mg Clopidogrel Bisulfate (Plavix Tab*) 75 mg PO DAILY [facility] Last Admin: 04/25/17 07:42 Dose: 75 mg Dextrose (D50w Syringe 50 Ml*) 12.5 gm IV PUSH .FOR FS < 60 - SS PRN PRN Reason: FS < 60 Fentanyl Citrate (Fentanyl*) 25 mcg IV Q2H PRN PRN Reason: PAIN Fondaparinux (Arixtra*) 7.5 mg SUBCUT Q24H [facility] Furosemide (Lasix Tab*) 80 mg PO QAM [facility] Last Admin: 04/25/17 14:47 Dose: Not Given Guaifenesin/Dextromethorphan (Robitussin Dm*) 10 ml PO Q4H PRN PRN Reason: COUGH Last Admin: 04/20/17 20:46 Dose: 10 ml Hyoscyamine (Anaspaz Tab*) 0.125 mg PO TID [facility] Last Admin: 04/25/17 21:19 Dose: 0.125 mg Ceftriaxone Sodium 2 gm/ (Sodium Chloride) 100 mls @ 200 mls/hr IVPB 1300 [facility] Last Admin: 04/25/17 15:51 Dose: 200 mls/hr Nitroglycerin/Dextrose (Nitroglycerin Drip*) 25,000 mcg in 250 mls @ 0.6 mls/ hr IV .(Initial Rate) [facility]; 1 MCG/MIN PRN Reason: Protocol Insulin Glargine (Lantus(*)) 15 units SUBCUT Q12H [facility] Last Admin: 04/26/17 08:39 Dose: 15 unit Insulin Human Lispro (Humalog*) 0 units SUBCUT ACHS [facility] PRN Reason: Protocol Last Admin: 04/26/17 08:00 Dose: 1 unit Lactobacillus Rhamnosus (Culturelle*) 1 cap PO BID [facility] Last Admin: 04/25/17 21:16 Dose: 1 cap Lorazepam (Ativan Tab(*)) 0.5 mg PO Q6H PRN PRN Reason: ANXIETY Last Admin: 04/21/17 21:37 Dose: 0.5 mg Magnesium Oxide (Magox 400 Tab*) 400 mg PO BID [facility] Last Admin: 04/25/17 21:16 Dose: 400 mg Metoprolol Tartrate (Lopressor Tab*) 50 mg PO BID [facility] Last Admin: 04/25/17 21:16 Dose: 50 mg Nitroglycerin (Nitroglycerin Tab 0.4 Mg*) 0.4 mg SL Q5M PRN PRN Reason: ANGINA Nystatin (Nystatin Cream*) 1 applic TOPICAL TID [facility] Last Admin: 04/25/17 21:19 Dose: Not Given Ondansetron HCl (Zofran Inj*) 4 mg IV Q4H PRN PRN Reason: NAUSEA/VOMITING Pantoprazole Sodium (Protonix Tab (Nf)) 80 mg PO DAILY@0730 [facility] Last Admin: 04/26/17 08:42 Dose: 80 mg Potassium Chloride (Klor-Con Liquid*) 40 meq PO TID [facility] Last Admin: 04/25/17 21:17 Dose: 40 meq Sertraline HCl (Zoloft*) 50 mg PO DAILY [facility] Last Admin: 04/25/17 07:43 Dose: 50 mg Objective Vital Signs: Temp Pulse Resp BP Pulse Ox 97.0 F 62 16 123/42 98 04/26/17 03:33 04/26/17 07:31 04/26/17 08:00 04/26/17 07:31 04/26/17 07:01 Oxygen Devices in Use Now: None Appearance: nad, pleasant Eyes: PERRLA Ears/Nose/Mouth/Throat: Clear Oropharnyx, Mucous Membranes Moist Neck: Trachea Midline, No Thyroid Enlargement, Masses Respiratory: Symmetrical Chest Expansion and Respiratory Effort, - - crackles right base Cardiovascular: NL Sounds; No Murmurs; No JVD, RRR Abdominal: NL Sounds; No Tenderness; No Distention, No Hepatosplenomegaly Extremities: No Edema, No Clubbing, Cyanosis Skin: No Rash or Ulcers Neurological: Alert and Oriented x 3 - [place], no gross deficits. Lines/Tubes/Other Access: Clean, Dry and Intact Peripheral IV Laboratory Results: 04/26/17 06:30 04/26/17 06:30 INR (Anticoag Therapy) 0.97 (0.77-1.02) 04/20/17 09:53 APTT 32.0 seconds (26.0-36.3) 04/20/17 09:53 Total Bilirubin 0.50 mg/dL (0.2-1.0) 04/26/17 06:30 AST 56 U/L (13-39) H 04/26/17 06:30 ALT 51 U/L (7-52) 04/26/17 06:30 Alkaline Phosphatase 71 U/L (34-104) 04/26/17 06:30 B-Natriuretic Peptide 562 pg/mL (-100) H 04/20/17 11:23 Total Protein 5.5 g/dL (6.4-8.9) L 04/26/17 06:30 Albumin 2.4 g/dL (3.2-5.2) L 04/26/17 06:30 Globulin 3.1 g/dL (2-4) 04/26/17 06:30 Albumin/Globulin Ratio 0.8 (1-3) L 04/26/17 06:30 TSH 4.42 mcIU/mL (0.34-5.60) 04/16/17 21:35 04/20/17 04/20/17 04/20/17 09:53 13:40 16:51 Troponin I 0.44 H* 1.54 H* 2.85 H* 04/20/17 04/21/17 04/25/17 20:25 05:55 16:10 Troponin I 2.53 H* 2.33 H* 0.07 H* 04/25/17 21:29 Troponin I 0.10 H* Diagnostic Imaging: RAYNA Sunday04/22/17: EF 45%, mild MR and TR. ?able vegetation on apparatus of the mitral valve vs. calcific sclerosis. No vegetations noted on the pacer leads or other valves. The patient was hemodynamically stable throughout the procedure and in normal sinus rhythm. Cardiac catheterization today showed occlusion in the circumflex (Cx dominant) felt to be culprit lesion and stented. Extensive [place] CAD and graft to non dominant RCA is occluded EKG Data: Monitor: NSR. Assessment/Plan 76 yo female, CAD and CABG, DM, VTw/ICD, PVD of legs and carotids with CAD risks of DM, HTN, CHol, FHx admitted septic from Group B strep (equivocal RAYNA, see separate report), CHF found in afib, RVR, she then went into [place] X2 with appropriate ICD shock, elevated troponin now s/p PCI (see dictated report when finished) - Continue magnesium and potassium supplementation and check levels daily ( ordered) - Continue metoprolol as above - Continue aspirin, plavix and arixtra as per Dr. Gill/Dr. Barba - Continue lipitor 80 mg, check lipid panel (ordered) - Stop IVF, hold lasix this AM post-contrast, restart tomorrow AM (ordered) - Other treatment including antibiotics per Hospitalist service/ID Thank you for allowing me to participate in the cardiovascular care of this patient. Please do not hesitate to contact me with questions or concerns.
[2017-04-26] MEDS: Hyoscyamine TAB* 0.125 MG PO SCH ×3 (09:29→22:43)
[2017-04-26] MEDS: Metoprolol Tartrate TAB* 50 mg PO SCH ×2 (09:29→22:42)
[2017-04-26] MEDS: Aspirin EC Low Dose* 81 MG TAB.EC PO SCH (09:29)
[2017-04-26] MEDS: Furosemide TAB* 40 MG PO SCH (09:30)
[2017-04-26] MEDS: Lactobacillus Acidophilu (GG)* 1 CAP CAP PO SCH ×2 (09:31→22:42)
[2017-04-26] MEDS: Magnesium Oxide TAB* 400 MG PO SCH ×2 (09:31→22:42)
[2017-04-26] MEDS: Clopidogrel TAB* 75 MG PO SCH (09:32)
[2017-04-26] MEDS: Potassium Chloride LIQUID* 20 MEQ PACKET PO SCH ×3 (09:33→22:43)
[2017-04-26] MEDS: Sertraline* 50 MG TAB PO SCH (09:34)
[2017-04-26] MEDS ORDERED: Magnesium Sulfate 1 GM IV* 1 GM/100 ML BAG IV ONE (11:31)
[2017-04-26] MEDS: Nystatin CREAM* 15 GM TUBE TOPICAL SCH ×3 (12:44→22:50)
[2017-04-26] MEDS: cefTRIAXone(*) 2 GM in NS 0.9% 100 ML* 100 ML IVPB SCH (14:49)
[2017-04-26] MEDS: Fondaparinux* 7.5 MG/0.6 ML SYRINGE SUBCUT SCH (15:37)
[2017-04-26] MEDS: Atorvastatin* 80 MG TAB PO SCH (22:42)
--- NOTE | 2017-04-27 08:10 | PN ---
Subjective Date of Service: 04/27/17 Interval History: f/u PCI No chest discomfort or dyspnea no arrhythmias on telemetry Medications Active Medications: Acetaminophen (Tylenol Tab*) 650 mg PO Q4H PRN PRN Reason: FEVER/PAIN Last Admin: 04/25/17 15:51 Dose: 650 mg Aspirin (Aspirin Ec Low Dose*) 81 mg PO DAILY [facility] Last Admin: 04/26/17 09:29 Dose: 81 mg Atorvastatin Calcium (Lipitor*) 80 mg PO BEDTIME [facility] Last Admin: 04/26/17 22:42 Dose: 80 mg Clopidogrel Bisulfate (Plavix Tab*) 75 mg PO DAILY [facility] Last Admin: 04/26/17 09:32 Dose: 75 mg Dextrose (D50w Syringe 50 Ml*) 12.5 gm IV PUSH .FOR FS < 60 - SS PRN PRN Reason: FS < 60 Fentanyl Citrate (Fentanyl*) 25 mcg IV Q2H PRN PRN Reason: PAIN Fondaparinux (Arixtra*) 7.5 mg SUBCUT Q24H [facility] Last Admin: 04/26/17 15:37 Dose: 7.5 mg Furosemide (Lasix Tab*) 80 mg PO QAM [facility] Guaifenesin/Dextromethorphan (Robitussin Dm*) 10 ml PO Q4H PRN PRN Reason: COUGH Last Admin: 04/20/17 20:46 Dose: 10 ml Hyoscyamine (Anaspaz Tab*) 0.125 mg PO TID [facility] Last Admin: 04/26/17 22:43 Dose: 0.125 mg Ceftriaxone Sodium 2 gm/ (Sodium Chloride) 100 mls @ 200 mls/hr IVPB 1300 [facility] Last Admin: 04/26/17 14:49 Dose: 200 mls/hr Insulin Glargine (Lantus(*)) 15 units SUBCUT Q12H [facility] Last Admin: 04/26/17 22:46 Dose: 15 unit Insulin Human Lispro (Humalog*) 0 units SUBCUT ACHS [facility] PRN Reason: Protocol Last Admin: 04/26/17 22:47 Dose: 4 unit Lactobacillus Rhamnosus (Culturelle*) 1 cap PO BID [facility] Last Admin: 04/26/17 22:42 Dose: 1 cap Lorazepam (Ativan Tab(*)) 0.5 mg PO Q6H PRN PRN Reason: ANXIETY Last Admin: 04/21/17 21:37 Dose: 0.5 mg Magnesium Oxide (Magox 400 Tab*) 400 mg PO BID [facility] Last Admin: 04/26/17 22:42 Dose: 400 mg Metoprolol Tartrate (Lopressor Tab*) 50 mg PO BID [facility] Last Admin: 04/26/17 22:42 Dose: 50 mg Nitroglycerin (Nitroglycerin Tab 0.4 Mg*) 0.4 mg SL Q5M PRN PRN Reason: ANGINA Nystatin (Nystatin Cream*) 1 applic TOPICAL TID [facility] Last Admin: 04/26/17 22:50 Dose: Not Given Ondansetron HCl (Zofran Inj*) 4 mg IV Q4H PRN PRN Reason: NAUSEA/VOMITING Pantoprazole Sodium (Protonix Tab (Nf)) 80 mg PO DAILY@0730 [facility] Last Admin: 04/26/17 08:42 Dose: 80 mg Potassium Chloride (Klor-Con Liquid*) 40 meq PO TID [facility] Last Admin: 04/26/17 22:43 Dose: 40 meq Sertraline HCl (Zoloft*) 50 mg PO DAILY [facility] Last Admin: 04/26/17 09:34 Dose: 50 mg Objective Vital Signs: Temp Pulse Resp BP Pulse Ox 98.1 F 69 16 119/47 94 04/26/17 23:48 04/26/17 23:48 04/27/17 01:26 04/26/17 23:48 04/26/17 23:48 Oxygen Devices in Use Now: None Appearance: nad, pleasant Eyes: PERRLA Ears/Nose/Mouth/Throat: Clear Oropharnyx, Mucous Membranes Moist Neck: Trachea Midline, No Thyroid Enlargement, Masses Respiratory: Symmetrical Chest Expansion and Respiratory Effort, - - crackles right base Cardiovascular: NL Sounds; No Murmurs; No JVD, RRR Abdominal: NL Sounds; No Tenderness; No Distention, No Hepatosplenomegaly Extremities: No Edema, No Clubbing, Cyanosis Skin: No Rash or Ulcers Neurological: Alert and Oriented x 3 - [place], no gross deficits. Lines/Tubes/Other Access: Clean, Dry and Intact Peripheral IV Laboratory Results: 04/26/17 06:30 04/26/17 06:30 INR (Anticoag Therapy) 0.97 (0.77-1.02) 04/20/17 09:53 APTT 32.0 seconds (26.0-36.3) 04/20/17 09:53 Total Bilirubin 0.50 mg/dL (0.2-1.0) 04/26/17 06:30 AST 56 U/L (13-39) H 04/26/17 06:30 ALT 51 U/L (7-52) 04/26/17 06:30 Alkaline Phosphatase 71 U/L (34-104) 04/26/17 06:30 B-Natriuretic Peptide 562 pg/mL (-100) H 04/20/17 11:23 Total Protein 5.5 g/dL (6.4-8.9) L 04/26/17 06:30 Albumin 2.4 g/dL (3.2-5.2) L 04/26/17 06:30 Globulin 3.1 g/dL (2-4) 04/26/17 06:30 Albumin/Globulin Ratio 0.8 (1-3) L 04/26/17 06:30 TSH 4.42 mcIU/mL (0.34-5.60) 04/16/17 21:35 04/20/17 04/20/17 04/20/17 09:53 13:40 16:51 Troponin I 0.44 H* 1.54 H* 2.85 H* 04/20/17 04/21/17 04/25/17 20:25 05:55 16:10 Troponin I 2.53 H* 2.33 H* 0.07 H* 04/25/17 21:29 Troponin I 0.10 H* Diagnostic Imaging: RAYNA Sunday04/22/17: EF 45%, mild MR and TR. ?able vegetation on apparatus of the mitral valve vs. calcific sclerosis. No vegetations noted on the pacer leads or other valves. The patient was hemodynamically stable throughout the procedure and in normal sinus rhythm. Cardiac catheterization today showed occlusion in the circumflex (Cx dominant) felt to be culprit lesion and stented. Extensive [place] CAD and graft to non dominant RCA is occluded EKG Data: Monitor: NSR. Assessment/Plan 76 yo female, CAD and CABG, DM, VTw/ICD, PVD of legs and carotids with CAD risks of DM, HTN, CHol, FHx admitted septic from Group B strep (equivocal RAYNA, see separate report), CHF found in afib, RVR, she then went into [place] X2 with appropriate ICD shock, elevated troponin now s/p PCI (see dictated report when finished), LVEF 40-45% - Continue magnesium and potassium supplementation, AM BMP/Mg pending - Continue metoprolol as above - Continue aspirin, plavix and arixtra as per Dr. Gill/Dr. Barba - Continue lipitor 80 mg, AM lipid panel pending - Continue prior to admission lasix - Other treatment including antibiotics per Hospitalist service/ID - Ok to discharge from a cardiac standpoint Thank you for allowing me to participate in the cardiovascular care of this patient. Please do not hesitate to contact me with questions or concerns.
[2017-04-27] MEDS ORDERED: Furosemide TAB* 40 MG PO SCH (09:00)
[2017-04-27] MEDS: Potassium Chloride LIQUID* 20 MEQ PACKET PO SCH ×2 (09:05→13:33)
[2017-04-27] MEDS: Sertraline* 50 MG TAB PO SCH (09:06)
[2017-04-27] MEDS: Lactobacillus Acidophilu (GG)* 1 CAP CAP PO SCH (09:06)
[2017-04-27] MEDS: Hyoscyamine TAB* 0.125 MG PO SCH ×2 (09:06→13:34)
[2017-04-27] MEDS: Magnesium Oxide TAB* 400 MG PO SCH (09:06)
[2017-04-27] MEDS: Metoprolol Tartrate TAB* 50 mg PO SCH (09:06)
[2017-04-27] MEDS: CMCS: Pantoprazole TAB (NF) 40 MG TAB PO SCH (09:06)
[2017-04-27] MEDS: Clopidogrel TAB* 75 MG PO SCH (09:07)
[2017-04-27] MEDS: Aspirin EC Low Dose* 81 MG TAB.EC PO SCH (09:07)
[2017-04-27] MEDS: Insulin GLARGINE(*) 1 UNITS UNIT SUBCUT SCH (09:10)
[2017-04-27] MEDS: Nystatin CREAM* 15 GM TUBE TOPICAL SCH ×2 (09:11→13:34)
[2017-04-27] MEDS: Insulin LISPRO* 1 UNITS UNIT SUBCUT SCH ×3 (09:11→16:39)
[2017-04-27 11:35] LABS: EGFR Non-African American 87.3 (>60)
[2017-04-27] MEDS: cefTRIAXone(*) 2 GM in NS 0.9% 100 ML* 100 ML IVPB SCH (13:33)
[2017-04-27] MEDS ORDERED: Magnesium Sulfate 2 GM IV* 2 GM/50 ML BAG IVPB ONE (16:00)
[2017-04-27] MEDS: Fondaparinux* 7.5 MG/0.6 ML SYRINGE SUBCUT SCH (16:39)
[2017-04-27 17:03] VITALS: BP 117/50
--- NOTE | 2017-04-27 22:16 | CATH ---
CC: Dr. Johanny Barba; Dr. Daryl Ashford CARDIAC CATHETERIZATION AND INTERVENTIONAL REPORT: DATE OF THE STUDY: 04/25/17 REASON FOR PROCEDURE: The patient with acute coronary syndrome and abnormal nuclear stress test suggesting significant reversible ischemia to the posterolateral wall with a history of prior stents placed. PROCEDURE: Coronary arteriography, left heart catheterization, balloon angioplasty of second obtuse marginal branch and balloon angioplasty of mid circumflex and placement of a 3.5 x 16 mm long synergy drug eluting stent, post dilated to 4.2 mm. Vein graft arteriography to left PDA, and free pedicle MCKENNA graft arteriography to LAD. DESCRIPTION OF PROCEDURE: The patient was interviewed and examined in the floor or the hospital where the risks and benefits were explained. She understood and wished to proceed. She was brought to the cardiovascular laboratory, where a formal time-out was performed. The patient was prepped and draped in a sterile fashion. The right femoral artery area was then anesthetized with 1% lidocaine. The right femoral artery was cannulized and a 5- Venezuelan introducer was placed. Diagnostic coronary arteriography was performed utilizing a 5-V[place]an 4 Diego left coronary catheter and 5-Venezuelan 4 Diego right coronary catheter. Vein graft to the left-sided PDA was performed utilizing the right coronary catheter as was the free pedicle MCKENNA graft to the LAD. Central aortic pressure was recorded using a angled pigtail catheter, advanced to the ascending aorta. The catheter was then passed across the aortic valve into the left ventricle where left ventricular pressure was recorded. No ventriculogram was performed. The catheter was pulled back across the aortic valve to recheck gradient. Following this, the decision was made to intervene into the circumflex artery. The existing 5-Venezuelan sheath was exchanged for a 6.5-Venezuelan Merit Prelude sheath. Guiding views were obtained utilizing a VL 3.5 curved guide catheter. The patient received an Angiomax bolus and Angiomax drip was started. Initially , an All Star wire was placed into the main body of the circumflex in the distal portion. A BMW guidewire was inserted and negotiated through the proximal critical area in the first obtuse marginal branch. Attempts were made to deliver initial a 2.0 x 15 mm long Emerge balloon into the obtuse marginal branch. This was unsuccessful. Eventually multiple balloon catheters were attempted with eventually a 1.2 mm x 8 mm long Emerge push was able to be inserted and advanced into the first obtuse marginal branch and dilatations were made. Following this, kissing balloon was performed with a 3.0 x 15 mm long NC Emerge balloon. A GuideLiner was inserted to try to advance balloon catheters into the circumflex obtuse marginal branch. Eventually, a whisper wire was placed and the BMW was removed and additional balloon inflations were made again in the first obtuse marginal branch with a 1.2 x 8 mm long balloon dilated multiple areas to high pressure followed by 1.5, followed by a 2.0, also 2.25 x 8 mm long NC Emerge balloon was dilated to high pressure. Attempts were then made to deliver stent to this region and were unsuccessful. Besides further dilatations to the area with a 2.5 x 8 mm long NC Emerge balloon to high pressures, the stent could not be delivered. At that point in time, a kissing balloon was performed with NC Emerge 3.0 x 15 in the circumflex body and a 2.0 x 8 mm in the obtuse marginal branch. Eventually, the 3.5 x 16 mm long stent was placed in the body of the circumflex and the obtuse marginal branch was rewired. Attempts to try to cross the stents were unsuccessful. The artery was then assessed both with wires in place and wires removed. The total contrast used was 225 cc of Omnipaque dye. The radiation exposure included 15 minutes of fluoro time. The air kerma was 4030 milligray. The DAP radiation was 23,728 microgray per meter squared. RESULTS: HEMODYNAMIC DATA: LEFT HEART CATHETERIZATION: Central aortic pressure recorded at 160/59 with a mean of 101. Left ventricular pressure of 150 over left ventricular end-diastolic pressure of 25. CORONARY ARTERIOGRAPHY: A. Left coronary artery: 1. Left main, short in nature. No stenosis. 2. Left anterior descending artery. The left anterior descending artery appeared to have a flush occlusion and could not be visualized in an anterior approach. 3. Circumflex artery - a dominant vessel supplying multiple obtuse marginal branches and low lying posterior LV branches ending at left-sided posterior descending artery. 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 This is after the thin first obtuse marginal branch. The second obtuse marginal branch was a prior stented artery and had severe in-stent restenosis of 95% with PAT-2 flow. Past this point was a complex lesion in the circumflex of 95%. The rest of the circumflex had mild luminal regularities, but no critical stenosis. B. Right coronary artery: A nondominant vessel, small in caliber with diffuse disease with a high acute marginal branch followed by total occlusion of the right coronary artery with bridging collaterals refilling the nondominant right coronary artery supplying thin acute marginal branches to the RV surface. VEIN GRAFT ARTERIOGRAPHY TO LEFT SIDED PDA - totally occluded (already known). FREE PEDICLE MCKENNA GRAFT TO MID LAD - widely patent with good anastomosis with retrograde filling to proximal LAD and with retrograde filling seen to distal portion of a probable obtuse marginal branch. Which branch could not be delineated as it filled partially. INTERVENTION INTO CIRCUMFLEX ARTERY: A. Proximal second obtuse marginal branch, balloon angioplasty and unsuccessful delivery of any stent noted reducing critical 95% stenosis, but leaving a significant 75% stenosis still in place with PAT-3 flow noted. B. Mid circumflex reduction of critical 95% stenosis with residual stenosis 10% with balloon angioplasty and placement of a 3.5 x 16 mm long synergy drug eluting stent post dilated at 4.2 mm. OVERALL ASSESSMENT: Significant disease involving the proximal portion of the second obtuse marginal branch with prior stented area with severe in-stent restenosis treated with balloon angioplasty, but unsuccessful in delivering any stent with residual stenosis still present as described above. Successful reduction of critical 95% mid lesion in the mid circumflex with balloon angioplasty and placement of the 3.5 x 16 mm long synergy drug eluting stent dilated at 4.2 mm with high pressure balloon inflations with PAT-3 flow, no dissection seen, and 10% residual stenosis. At this point in time, the patient should be maintained on dual antiplatelet agents for probably 30 months. Medical management for obtuse marginal branch would probably be best at this point in time given the difficulty of delivering any type of stent to this area. The patient will have a wound check with me within 7 to 10 days and follow up with primary packaging operator, Dr. Johanny Barba. [id number]/[facility] #: [id number] [facility]
--- NOTE | 2017-04-28 15:07 | DS ---
CC: Dr. Gill, Dr. Cook; Dr. Barba; Dr. Ford; Dr. Ashford. * DISCHARGE SUMMARY: DATE OF ADMISSION: 04/17/17 DATE OF DISCHARGE: 04/27/17 DISCHARGE DIAGNOSES: 1. Group B streptococcus bacteremia. 2. Coronary artery disease, status post cardiac catheterization and stent. 3. An episode of ventricular fibrillation/torsades during RAYNA procedure likely due to hypomagnesemia with appropriate ICD shock. SECONDARY DIAGNOSES: 1. History of permanent pacemaker and ICD in place. 2. History of ventricular tachycardia. 3. History of coronary artery bypass grafting in 1998. 4. Peripheral vascular disease, status post distal right femoral bypass. 5. Insulin dependent diabetes mellitus. 6. Ischemic cardiomyopathy. 7. Hypertension. 8. History of deep venous thrombosis in right lower extremity. 9. Depression. 10. History of coronary artery disease with stenting in the past. MEDICATIONS AT DISCHARGE: Include: 1. Ceftriaxone 2 g IV every 24 hours for another 6 days to complete 14 days' treatment. 2. Acetaminophen on a p.r.n. basis. 3. Aspirin 81 mg daily. 4. Atorvastatin 80 mg daily. 5. Calcium carbonate 600 mg b.i.d. 6. Plavix 75 mg daily. 7. Arixtra 7.5 mg subcutaneously daily. 8. Furosemide 80 mg daily. 9. Anaspaz 0.125 mg p.o. t.i.d. p.r.n. 10. Lantus insulin 30 units subcutaneously in a.m. and 27 at night. 11. Probiotic one capsule b.i.d. 12. Mag-Ox 400 mg b.i.d. 13. Metoprolol tartrate 50 mg b.i.d. 14. Multivitamin 1 tablet a day. 15. Omeprazole 40 mg daily. 16. Potassium chloride 40 mEq 3 times a day. 17. Zoloft 50 mg daily. At discharge, the patient is going to be followed up by visiting nurse association and she is going to follow up with infusions at her own home. She had a PICC line placed prior to discharge. FOLLOWUP: Followup visits are as recommended: The patient is to follow up with Dr. Gill, the machine ironer who performed the patient's cardiac catheterization on 04/30/17 at 2 p.m. She is also recommended to follow up with Dr. Ford in 1 to 2 weeks. She needs to schedule an appointment with Dr. Daryl Ashford, her primary care physician to follow up in approximately 4- 7 days. LABORATORY DATA: Laboratory data prior to discharge include: On 04/26/17, white blood cell count of 6.6, hemoglobin of 10.3, hematocrit of 31, and platelets of 135. Sodium of 132, potassium of 4.4, chloride 101, carbon dioxide 27, BUN 13, creatinine 0.66. Magnesium level on 04/27/17 was 1.8. The patient's cholesterol profile showed triglycerides of 90, cholesterol total of 134, LDL of 86 and HDL of 29. The patient's TSH was 4.4 on 04/16/17. The patient's troponin peaked at 2.3 that was after her ICD shocked her twice. Cardiac catheterization performed by Dr. Gill on 04/25/17, from a verbal report, the patient had an angioplasty to OM 2 branch for in-stent restenosis and a stent placement to the patient's circumflex artery; both of those stenoses were above 90%. For a complete report, please see Dr. Gill's official report of cardiac catheterization that was performed on 04/25/17. Prior to cardiac catheterization, the patient had a cardiac stress test obtained on 04/24/17, which showed intermediate risk and moderate size reversible change in the inferior septal wall and anterolateral wall with EF of 50% at stress. Transesophageal echocardiogram obtained on 04/22/17, showed mild global hypokinesis with the EF of 40% to 45% with bubbles seen in the left atrium consistent with small cardiopulmonary shunt, possible PFO. There was aortic valve sclerosis with normal function. There was trace mitral regurgitation. There was calcific structure visualized in the subvalvular apparatus of the mitral valve possible vegetation versus sclerosis measuring a 0.3 x 0.9 cm with trace tricuspid regurgitation. Compared with echo from March 2017, the EF was stable, the degree of MR and tricuspid regurgitation improved. PA pressure previously was 57 mmHg. HOSPITALIZATION COURSE: Elisabeth Collins is a 76-year-old female with history of ischemic cardiomyopathy, who presented to the hospital on 04/17/17 with some nonspecific GI symptoms including generalized weakness, bloating, one episode of diarrhea and nausea that lasted the day of admission which was 04/17/17. The very next day, the patient felt very well, but her blood cultures grew Strep agalactiae in all of the bottles. Subsequently, Dr. Ford saw the patient in ID consultation and recommended transesophageal echocardiogram, which was performed by Dr. Barba on 04/22/17. When the patient was going to have the RAYNA done she was in atrial fibrillation and subsequently she was noted to be in torsades twice and ICD shocked her twice appropriately out of torsades. She was noted to have second hypomagnesemia when this episode happens with magnesium level of 1.6 that was repleted. The patient was seen in cardiology consultation and Dr. Barba recommended cardiac stress test which as above was positive. The subsequent cardiac catheterization was performed by Dr. Gill and as above mentioned, the patient had in-stent restenosis that had an angioplasty and a new stent placed in the circumflex artery. Postoperatively patient did very well. After Dr. Ford discussed the case with Dr. Barba that included the discussion about mitral valve sclerosis, it was noted that likely the abnormality in the mitral valve is sclerosis and not vegetation. Therefore, the patient will require a total of 2 weeks of IV antibiotics. The patient already finished 8 days of IV antibiotics during her hospital stay and she is going to complete the remaining 6 days of IV ceftriaxone at home. PHYSICAL EXAMINATION AT THE TIME OF DISCHARGE: Blood pressure of 117/50, heart rate of 71 and irregular, respiratory rate 16, oxygen saturation 97% on room air , temperature 98.4. General: The patient is a pleasant 76-year-old obese female, who is in no acute distress. Alert, awake, and oriented x3. HEENT: Head atraumatic, normocephalic. Eyes: Pupils are equal, round, and reactive to light and accommodation. Oropharynx clear. Mucosa moist. Neck: Supple. No JVD, no bruits bilaterally. Cardiovascular: Regular rate and rhythm. No murmur. Respiratory: Clear to auscultation bilaterally. Abdomen: Soft, nontender. Bowel sounds present in all 4 quadrants. Extremities: There is no pedal edema. Pulses are +2 bilaterally. There is no clubbing or cyanosis. On evaluation of the skin, the patient has venous stasis discoloration in bilateral distal lower extremities. Please note this is a short summary of the patient's complicated and prolonged hospitalization. Please refer to further medical records for details. Approximately 50 minutes was spent on the patient's discharge. [id number]/[facility] #: [id number] MTDD
== END 2017-04-27 19:15 | disposition home health service (06) | DRG 853 ==
LOC: ED 20:57 → MED 04-17 01:51 → OBSVTOIN 04-18 09:45 → ICU 04-20 10:44 → MEDTELE 04-23 15:10 → ICU 04-25 13:16 → MEDTELE 04-26 07:59
PROVIDERS: ADMIT Internal Medicine; ATTEND Internal Medicine
PROC: B24BZZ4 Ultrasonography of Heart with Aorta, Transesophageal (ICD-10-PCS; 2017-04-22)
PROC: 027034Z Dilation of Coronary Artery, One Artery with Drug-eluting Intraluminal Device, Percutaneous Approach (ICD-10-PCS; 2017-04-25)
PROC: 02703ZZ Dilation of Coronary Artery, One Artery, Percutaneous Approach (ICD-10-PCS; 2017-04-25)
PROC: B2121ZZ Fluoroscopy of Single Coronary Artery Bypass Graft using Low Osmolar Contrast (ICD-10-PCS; 2017-04-25)
PROC: B2181ZZ Fluoroscopy of Left Internal Mammary Bypass Graft using Low Osmolar Contrast (ICD-10-PCS; 2017-04-25)
PROC: 4A023N7 Measurement of Cardiac Sampling and Pressure, Left Heart, Percutaneous Approach (ICD-10-PCS; 2017-04-25)
PROC: B2111ZZ Fluoroscopy of Multiple Coronary Arteries using Low Osmolar Contrast (ICD-10-PCS; principal; 2017-04-25 09:15)
PROC: 02HV33Z Insertion of Infusion Device into Superior Vena Cava, Percutaneous Approach (ICD-10-PCS; 2017-04-27)
DX: A40.1 Sepsis due to streptococcus, group B (principal); I49.01 Ventricular fibrillation; I47.2 Ventricular tachycardia; E11.51 Type 2 diabetes mellitus with diabetic peripheral angiopathy without gangrene; E11.649 Type 2 diabetes mellitus with hypoglycemia without coma; I95.9 Hypotension, unspecified; I24.9 Acute ischemic heart disease, unspecified; I48.0 Paroxysmal atrial fibrillation; E83.42 Hypomagnesemia; I08.1 Rheumatic disorders of both mitral and tricuspid valves; L03.315 Cellulitis of perineum; T82.855A Stenosis of coronary artery stent, initial encounter; I25.5 Ischemic cardiomyopathy; I25.10 Atherosclerotic heart disease of native coronary artery without angina pectoris; E78.00 Pure hypercholesterolemia, unspecified; B95.1 Streptococcus, group B, as the cause of diseases classified elsewhere; F32.9 Major depressive disorder, single episode, unspecified; I10 Essential (primary) hypertension; M19.90 Unspecified osteoarthritis, unspecified site; H91.93 Unspecified hearing loss, bilateral; F41.9 Anxiety disorder, unspecified; R10.13 Epigastric pain; E66.9 Obesity, unspecified; I65.23 Occlusion and stenosis of bilateral carotid arteries; B37.9 Candidiasis, unspecified; Y71.1 Therapeutic (nonsurgical) and rehabilitative cardiovascular devices associated with adverse incidents; Y92.9 Unspecified place or not applicable; Z79.82 Long term (current) use of aspirin; Z79.02 Long term (current) use of antithrombotics/antiplatelets; Z79.4 Long term (current) use of insulin; Z86.718 Personal history of other venous thrombosis and embolism; Z95.0 Presence of cardiac pacemaker; Z95.810 Presence of automatic (implantable) cardiac defibrillator; Z95.1 Presence of aortocoronary bypass graft; Z95.5 Presence of coronary angioplasty implant and graft; Z98.49 Cataract extraction status, unspecified eye; Z87.891 Personal history of nicotine dependence; Z83.3 Family history of diabetes mellitus; Z82.49 Family history of ischemic heart disease and other diseases of the circulatory system; Z83.49 Family history of other endocrine, nutritional and metabolic diseases; Z87.442 Personal history of urinary calculi; Z68.31 Body mass index [BMI] 31.0-31.9, adult; Z90.49 Acquired absence of other specified parts of digestive tract; Z88.8 Allergy status to other drugs, medicaments and biological substances; Z82.3 Family history of stroke
CPT/HCPCS: 36415; 71010; 74177; 78452; 80048; 80053; 80061; 81003; 82150; 83036; 83605; 83690; 83735; 83880; 84100; 84443; 84484; 85025; 85027; 85610; 85730; 86140; 86850; 86900; 86901; 87040; 87077; 87150; 87186; 87205; 93005; 93017; 93306; 93312; 93325; 93458; 96365; 99156; 99157; 99285; A9270-GY; A9502; C1725; C1751; C1769; C1876; C1887; C9600-LC; G0378; J0583; J0696; J1644; J2250; J2310; J2543; J2785; J3010; J3370; J3475; Q9967

== ENCOUNTER 2017-05-04 12:43 | Emergency (ER) | payer MEDICARE, BC ==
--- OUTSIDE RECORDS SUMMARY | 2017-05-04 13:00 | XMS REPORT ---
:1940 External Reference #:[id number] Author Organization [facility] Address [address] [address] Phone [phone] Care Team Providers Name Role Phone Daryl Ashford MD Primary Care Physician Unavailable Payers Type Date Identification Numbers Payment Provider Subscriber Medicare Primary Policy Number: [id number] Medicare Elisabeth Collins PayID: [id number] [address] [place] [address] [facility] Part [facility] Policy Number: [id number] [facility] Elisabeth Navarro Rider PayID: [id number] [address] [place] [address] Problems Date Description Provider Status Onset: 09/10/2013 Peripheral vascular disease Johanny Barba M.D. Active Onset: 09/10/2013 Pure hypercholesterolemia Johanny Barba M.D. Active Onset: 09/10/2013 Essential hypertension Johanny Barba M.D. 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 Active Onset: 02/08/2015 Athscl heart disease of [place] Johanny Barba M.D. Active coronary artery w/o ang pctrs Onset: 02/08/2015 Arteriosclerosis of coronary artery Johanny Barba M.D. Active bypass graft Onset: 04/30/2017 Encounter for planned postprocedural Hunter Gill M.D., [facility], Active wound closure [facility] Onset: 01/28/2016 Chronic ischemic heart disease Johanny Barba M.D. Active Family History Date Family Member(s) Problem(s) Comments Father Cerebrovascular Accident (CVA) Mother Coronary Artery Disease (CAD) age 54 CAD Siblings 1 Sister aneurism, thoracic Social History Type Date Description Comments Marital Status Occupation Retired Cigarette Use Former Cigarette Smoker Pt denies ever smoking pipe, cigar, e-cigarettes, or using chewing tobacco. ETOH Use Never used alcohol Smoking Patient is a former smoker quit in 1998 Recreational Drug Use Denies Drug Use Daily Caffeine Regular Coffee A couple cups on the weekends Daily Caffeine Consumes on average 1 soda per pt states has been day drinking caffeine free diet soda Exercise Type/Frequency Exercises regularly PT through visiting nurse and walking Allergies, Adverse Reactions, Alerts Date Description Reaction Status Severity Comments 02/08/2015 Xarelto Bloody Stools active Moderate 09/10/2013 NKDA inactive Medications Medication Date Status Form Strength Qnty SIG Indications Ordering Provider Clopidogrel 04/30/ Active Tablets 75mg 90tab 1 by mouth Hunter Bisulfate 2018 s every day Cady Gill, [facility], [facility] Magnesium Oxide 04/30/ Active Tablets 400mg 30tab 1 by mouth Hunter 2018 s twice rufus Gill M.D., [facility], [facility] Lipitor / Active Tablets 80mg 30tab 1 by mouth Unknown 0000 s every night at bedtime Niaspan / Active Tablets 500mg 30tab 1 by mouth Unknown 0000 s bid Metoprolol / Active 50mg 1 tablet Unknown 0000 po bid Lasix / Active Tablets 40mg 90tab 2.5 by Unknown 0000 s mouth every day Potassium / Active Tablets ER 20Meq 90tab 6 by mouth Unknown Chloride ER 0000 s every day Aspirin / Active Tablets 81mg 1 by mouth Unknown 0000 every day Multivitamins / Active Capsules 90cap 1 capsule Unknown 0000 s j carlos;y Calcium / Active 600mg 2 po qd Unknown 0000 Tylenol / Active Tablets 325mg as needed Unknown 0000 Lantus / Active Solution 100Unit/M 30 unit in Unknown 0000 L the am, 27 in the PM, based on BS. Fondaparinux / Active Solution 7.5mg/0.6 Once daily Unknown Sodium 0000 ML Omeprazole / Active Capsules 40mg 1 by mouth Unknown 0000 DR every day Probiotic / Active Tablets DR Once daily Unknown 0000 Nitrostat / Active Tablets 0.4mg one sl Unknown 0000 Sub q5min up to 3 doses as needed Sertraline HCL / Active Tablets 50mg 1 by mouth Unknown 0000 every day Ceftriaxone / Hx Solution 2gm 2 grams Unknown Sodium 0000 - Rec daily iv 2018 infusion ending 05/03/17 Cyclobenzaprine 08/11/ Hx Tablets 5mg Johanny HCL 2013 - Jameson, 05/19/ MNadine 2014 Arixtra / Hx 10ml injection Unknown 0000 - 2014 Nitroglycerin / Hx Patches 0.4mg/HR 1bott apply in Unknown 0000 - 24HR le morning 05/20/ for 12 2014 hours, remove at night Humulin 70/30 / Hx as Unknown 0000 - directed 2014 Sertraline HCL / Hx Tablets 50mg 90tab 1 by mouth Unknown 0000 - s every day 2015 Xarelto / Hx Tablets 20mg 180ta 1 by mouth Unknown 0000 - bs every day 2014 Hyoscyamine / Hx Tablets 0.125mg 1 tab Unknown Sulfate 0000 - every day 2016 Vital Signs Date Vital Result Comment 04/30/2017 Height 64.5 inches 5'4.50" Weight 191.00 lb w/ shoes Heart Rate 74 /min BP Systolic Sitting 122 mmHg lue reg cuff BP Diastolic Sitting 64 mmHg lue reg cuff BP Systolic Standing 122 mmHg lue reg cuff BP Diastolic Standing 64 mmHg lue reg cuff Respiratory Rate 18 /min BMI (Body Mass Index) 32.3 kg/m2 Ejection Fraction 40-45% echo 04/24/17 01/26/2017 Height 64.5 inches 5'4.50" Weight 195.00 lb w shoes and light jacket Heart Rate 60 /min BP Systolic Sitting 102 mmHg rue large cuff BP Diastolic Sitting 60 mmHg rue large cuff Respiratory Rate 18 /min BMI (Body Mass Index) 33.0 kg/m2 Ejection Fraction 40-45% echo 08/28/13 01/28/2016 Height 64.5 inches 5'4.50" Weight 204.00 lb Heart Rate 60 /min BP Systolic Sitting 114 mmHg left arm, large cuff BP Diastolic Sitting 62 mmHg left arm, large cuff BP Systolic Standing 112 mmHg left arm, large cuff BP Diastolic Standing 60 mmHg left arm, large cuff Respiratory Rate 16 /min BMI (Body Mass Index) 34.5 kg/m2 Ejection Fraction 40-45% 08/28/13 02/08/2015 Height 64.5 inches 5'4.50" Weight 209.00 lb w/o shoes Heart Rate 60 /min reg BP Systolic Sitting 116 mmHg Rue, lg cuff BP Diastolic Sitting 60 mmHg Rue, lg cuff BP Systolic Standing 110 mmHg Rue BP Diastolic Standing 60 mmHg Rue Respiratory Rate 16 /min BMI (Body Mass Index) 35.3 kg/m2 Ejection Fraction 40-45% as of 08/28/13 echo 05/11/2014 Height 64.5 inches 5'4.50" Weight 211.00 lb without shoes Heart Rate 66 /min regular BP Systolic Sitting 118 mmHg right arm large cuff BP Diastolic Sitting 68 mmHg right arm large cuff BP Systolic Standing 116 mmHg right arm large cuff BP Diastolic Standing 64 mmHg right arm large cuff Respiratory Rate 18 /min BMI (Body Mass Index) 35.7 kg/m2 09/10/2013 Height 64.5 inches 5'4.50" Weight 222.00 lb Heart Rate 60 /min BP Systolic Sitting 104 mmHg LA large cuff BP Diastolic Sitting 72 mmHg LA large cuff BP Systolic Standing 102 mmHg LA BP Diastolic Standing 72 mmHg LA Respiratory Rate 16 /min BMI (Body Mass Index) 37.5 kg/m2 Results Test Date Test Result H/L Range Note CBC Auto Diff 04/11/2017 White Blood Count 6.3 10^3/uL 3.5-10.8 Red Blood Count 4.03 10^6/uL 4.0-5.4 Hemoglobin 12.3 g/dL 12.0-16.0 Hematocrit 37 % 35-47 Mean Corpuscular Volume 93 fL 80-97 Mean Corpuscular Hemoglobin 31 pg 27-31 Mean Corpuscular HGB Conc 33 g/dL 31-36 Red Cell Distribution Width 14 % 10.5-15 Platelet Count 111 10^3/uL Low 150-450 Mean Platelet Volume 9 um3 7.4-10.4 Abs Neutrophils 3.9 10^3/uL 1.5-7.7 Abs Lymphocytes 1.7 10^3/uL 1.0-4.8 Abs Monocytes 0.4 10^3/uL 0-0.8 Abs Eosinophils 0.2 10^3/uL 0-0.6 Abs Basophils 0.1 10^3/uL 0-0.2 Abs Nucleated RBC 0 10^3/uL Granulocyte % 62.7 % 38-83 Lymphocyte % 26.3 % 25-47 Monocyte % 7.1 % 1-9 Eosinophil % 2.7 % 0-6 Basophil % 1.2 % 0-2 Nucleated Red Blood Cells % 0.1 CBC Auto Diff 01/01/2017 White Blood Count 4.5 10^3/uL 3.5-10.8 Red Blood Count 3.83 10^6/uL Low 4.0-5.4 Hemoglobin 11.7 g/dL Low 12.0-16.0 Hematocrit 36 % 35-47 Mean Corpuscular Volume 93 fL 80-97 Mean Corpuscular Hemoglobin 31 pg 27-31 Mean Corpuscular HGB Conc 33 g/dL 31-36 Red Cell Distribution Width 14 % 10.5-15 Abs Neutrophils 2.3 10^3/uL 1.5-7.7 Abs Lymphocytes 1.6 10^3/uL 1.0-4.8 Abs Monocytes 0.4 10^3/uL 0-0.8 Abs Eosinophils 0.2 10^3/uL 0-0.6 Abs Basophils 0 10^3/uL 0-0.2 Abs Nucleated RBC 0 10^3/uL Granulocyte % 51.1 % 38-83 Lymphocyte % 36.0 % 25-47 Monocyte % 8.7 % 1-9 Eosinophil % 3.4 % 0-6 Basophil % 0.8 % 0-2 Nucleated Red Blood Cells % 0.1 Platelet Count 81 10^3/uL Low 150-450 Mean Platelet Volume 9 um3 7.4-10.4 Oncology CBC Auto Diff 12/04/2013 White Blood Count 6.3 10^3/uL 4.8-10.8 Red Blood Count 4.19 10^6/uL 4.0-5.4 Hemoglobin 11.9 g/dL Low 12.0-16.0 Hematocrit 38 % 35-47 Mean Corpuscular Volume 90 fL 80-97 Mean Corpuscular Hemoglobin 29 pg 27-31 Mean Corpuscular HGB Conc 32 g/dL 31-36 Red Cell Distribution Width 14 % 10.5-15 Platelet Count 119 10^3/uL Low 150-450 Mean Platelet Volume 7 um3 Low 7.4-10.4 Abs Neutrophils 3.6 10^3/uL 1.5-7.7 Abs Lymphocytes 2.1 10^3/uL 1.0-4.8 Abs Monocytes 0.4 10^3/uL 0-0.8 Abs Eosinophils 0.2 10^3/uL 0-0.6 Abs Basophils 0 10^3/uL 0-0.2 Granulocyte % 55.5 % 38-83 Lymphocyte % 33.3 % 25-47 Monocyte % 6.8 % 1-9 Eosinophil % 3.9 % 0-6 Basophil % 0.5 % 0-2 Factor 5 Leiden Mutation 10/12/2011 Factor 5 Leiden Mut Result Negative Negative Factor 5 Leiden Mut Interp . () 1 Reviewed By SEE BELOW () 2 Factor II (Prothrombin) 10/12/2011 Prothrombin 119[address] [place] [address] Mutation Interp . () 3 Reviewed By SEE BELOW () 4 1 This individual DOES NOT have the factor V Leiden (R506Q) mutation. Although the factor V Leiden mutation is absent, the individual may have other genetic and environmental risk factors for thrombosis. If clinically indicated, suggest Coagulation Consultation 01965 (Thrombophilia Profile) to complete the evaluation for an inherited or acquired thrombosing disorder (i.e., thrombophilia). This test is a direct mutation analysis of leukocyte genomic DNA by the Invader Assay system ([employer], [employer], [place], [place]). Analyte Specific Reagent. This test was developed and its performance characteristics determined by [facility]. It has not been cleared or approved by the U.S. Food and Drug Administration. 2 RESULT: GINNA Bingham Test Performed by: [facility] - [address] [address] Brush Cutter: Toby Shabazz III, M.D. 3 This individual DOES NOT have the Prothrombin [id number] mutation. Although the Prothrombin U85340E mutation is absent, the individual may have other genetic and environmental risk factors for thrombosis. If clinically indicated, suggest Coagulation Consultation 18696 (Thrombophilia Profile) to complete the evaluation for an inherited or acquired thrombosing disorder (i.e., thrombophilia). Consider genetic consultation and counseling of potentially affected family members regarding laboratory testing. This test is a direct mutation analysis of leukocyte genomic DNA by the Invader Assay system ([employer]ader, [employer], [place], [place]). Analyte Specific Reagent. This test was developed and its performance characteristics determined by [facility]. It has not been cleared or approved by the U.S. Food and Drug Administration. 4 RESULT: GINNA Bingham Test Performed by: [address] [address] Brush Cutter: Toby Shabazz III, M.D. Procedures Date CPT Code Description Status 04/30/2017 48254 EKG Tracing & Interpretation Completed 04/24/2017 38255 Treadmill Interp/Report Only Completed 04/24/2017 93641 Stress Test Supervsn W/Out I/R Completed 04/20/2017 25137 Cardioversion Completed 04/18/2017 28931 ECHO Transthorasic Realtime 2D W Doppler & Color Completed Flow Hosp 01/26/2017 93756 EKG Tracing & Interpretation Completed 12/22/2016 79595 Icd Eval W/Iterative Adjustmnt Single Lead Icd Completed 09/06/2016 91341 Icd Eval Sing,Dual,Multi Lead Remote Recpt Transm Tech Completed Rev Tech S 09/06/2016 37675 Icd Check Remote Up To 90 Days Single,Dual,Multiple Completed Lead 09/06/2016 89120 Icd Check Remote Up To 90 Days Single,Dual,Multiple Completed Lead 05/03/2016 17370 Icd eval w/iterative adjment single lead Icd Completed 01/28/2016 29597 EKG Tracing & Interpretation Completed 12/29/2015 73930 Icd eval w/iterative adjment single lead Icd Completed 08/25/2015 67171 Icd eval w/iterative adjment single lead Icd Completed 02/08/2015 62953 EKG Tracing & Interpretation Completed 12/30/2014 99840 Icd Check Remote Up To 90 Days Single,Dual,Multiple Completed Lead 12/30/2014 33969 Icd Eval Sing,Dual,Multi Lead Remote Recpt Transm Tech Completed Rev Tech S 08/27/2014 36436 Icd Check Single,Dual Or Multiple In Person W/DR Incl Completed Heart Rhyth 05/13/2014 52156 Icd Eval Sing,Dual,Multi Lead Remote Recpt Transm Tech Completed Rev Tech S 05/13/2014 26044 Icd Check Remote Up To 90 Days Single,Dual,Multiple Completed Lead 05/11/2014 60215 EKG Tracing & Interpretation Completed 01/06/2014 43773 Icd Eval Sing,Dual,Multi Lead Remote Recpt Transm Tech Completed Rev Tech S 01/06/2014 53998 Icd Eval Sing,Dual,Multi Lead Remote Recpt Transm Tech Completed Rev Tech S 01/06/2014 74323 Icd Check Remote Up To 90 Days Single,Dual,Multiple Completed Lead 09/08/2013 12888 Icd eval w/iterative adjment single lead Icd Completed 08/28/2013 57072 ECHO Transthoracic, Real-Time 2D With Doppler And Color Completed Flow 04/28/2013 57018 Icd Eval Sing,Dual,Multi Lead Remote Recpt Transm Tech Completed Rev Tech S 04/28/2013 96367 Icd Check Remote Up To 90 Days Single,Dual,Multiple Completed Lead 12/25/2012 12007 Icd eval w/iterative adjment single lead Icd Completed 08/22/2012 21958 Icd eval w/iterative adjment single lead Icd Completed 08/22/2012 07535 EKG Tracing & Interpretation Completed 04/25/2012 46726 Icd eval w/iterative adjment single lead Icd Completed Encounters Type Date Location Provider CPT E/M Dx Office Visit 01/26/2017 [facility] Caryn Barba M.D. 96428 I25.810 10:20a Health Insurance Adjuster At [facility] I73.9 I65.29 E78.00 I10 E11.8 I34.0 Z95.810 Office Visit 01/28/2016 8:20a [facility] Caryn Barba M.D. 74837 Z95.810 Health Insurance Adjuster At [facility] I25.810 E78.00 I10 I25.5 E11.8 Office Visit 02/08/2015 8:15a [facility] Caryn Barba M.D. 46077 I73.9 [facility] Z95.810 I10 E78.0 I25.810 R94.31 I47.2 Office Visit 07/05/2014 1:06p [facility], Moy Monreal M.D. 74324 578.9 Hospitalists 285.1 414.00 443.9 Office Visit 05/11/2014 8:15a [facility] Johanny Barba M.D. 24160 414.02 Health Insurance Adjuster 250.90 272.0 401.9 427.1 V45.02 Office Visit 09/10/2013 9:15a [facility] Caryn Barba M.D. 31821 443.9 Health Insurance Adjuster 272.0 401.9 414.02 V45.02 Office Visit 12/25/2012 9:45a [facility] Johanny Barba M.D. 57424 414.02 Health Insurance Adjuster 443.9 401.9 272.0 Office Visit 05/10/2012 9:48a [facility], Moy Monreal M.D. 96706 682.6 Hospitalists 250.90 278.00 V12.51 Office Visit 05/08/2012 9:48a [facility], Ander Winkler, 16583 682.6 Hospitalists N.P. 250.90 278.00 V12.51 Office Visit 05/06/2012 9:47a [facility], Moy Monreal M.D. 65718 276.51 Hospitalists 008.8 443.81 Office Visit 05/04/2012 9:46a [facility], 56161 276.51 Assoc, Hospitalists N.P. 008.8 682.8 443.81 Office Visit 04/25/2012 9:15a [facility] Pacer Schedule 54671 414.02 Health Insurance Adjuster 427.1 443.9 401.9 Plan of Care Future Appointment(s):05/10/2017 1:10 pm - Johanny Barba M.D. at [facility]04/30/2017 - Hunter Gill M.D., [facility], SNPIOS20.1 Encounter for planned postprocedural wound closureComments:Your catheterization site appears to be healing well.Recommendations:Continue current medications and make sure you are taking clopidogrel (Plavix) -75 mg once a day. Follow up with your primary claims counsel, Dr. Barba.
--- NOTE | 2017-05-04 14:22 | RAD ---
INDICATION: Palpable painful pea-sized lump behind the LEFT knee. COMPARISON: May 21, 2014 TECHNIQUE: Mercer scale, color Doppler, and spectral analysis of the deep veins of the LEFT lower extremity. Vessel compression, phasicity, and augmentation assessed. REPORT: The LEFT common femoral, great saphenous, profunda femoral, femoral, popliteal, peroneal, and posterior tibial veins are patent. No superficial thrombophlebitis or cystic or solid lesion evident at the popliteal fossa to correspond with the region of the palpable lump as directed by the patient at the time of the exam. Patency of the RIGHT common femoral vein documented. IMPRESSION: 1. No evidence for LEFT lower extremity deep venous thrombosis. 2. No superficial thrombophlebitis or cystic or solid lesion evident at the LEFT popliteal fossa to correspond with the region of the palpable lump as directed by the patient at the time of the exam.
[2017-05-04 14:47] VITALS: BP 156/70
--- NOTE | 2017-05-15 12:28 | ED ---
Lower Extremity - HPI Summary HPI Summary: Patient arrives with daughter for an evaluation of a lump behind the L knee which spontaneously appeared 2 days ago with bruising. She denies recent travel , but notes to recent PNA with a hospital stay. She has recently started PT and stretching the leg more frequently. She denies known injury but states she could have pulled something. After advising with her PMD, he advised she come to the ED for US. Denies other symptoms including difficulty breathing. Pain is located directly behind the left knee with palpable lump and surrounding ecchymosis. - History of Current Complaint Chief Complaint: EDExtremityLower Stated Complaint: LUMP BEHIND KNEE R/O BLOOD CLOT Time Seen by Provider: 05/04/17 12:54 Hx Obtained From: Patient Hx Last Menstrual Period: N/A Mechanism Of Injury: Other - 3 cm x 3 cm palpable nodule behind the left knee which is slightly fluctuant and ecchymotic Onset of Pain: Days Onset/Duration: Days Severity Initially: Moderate Severity Currently: Moderate Pain Intensity: 3 Pain Scale Used: 0-10 Numeric Timing: Constant Location: Is Discrete @ - Lump behind left knee Character Of Pain: Aching Associated Signs And Symptoms: Positive: Bruising - Ecchymosis Aggravating Factor(s): Standing, Ambulation Alleviating Factor(s): Rest Able to Bear Weight: No - Risk Factors Gout Risk Factors: Negative DVT Risk Factors: Negative Septic Arthritis Risk Factor: Negative - Allergies/Home Medications Allergies/Adverse Reactions: Allergies Allergy/AdvReac Type Severity Reaction Status Date / Time PACEMAKER AND DEFIBRILATOR Allergy MRI Uncoded 10/01/15 18:30 CONTRINDICATED PMH/Surg Hx/FS Hx/Imm Hx Previously Healthy: Yes Endocrine/Hematology History: Reports: Hx Anticoagulant Therapy - arixtra, Hx Diabetes Denies: Hx Thyroid Disease Cardiovascular History: Reports: Hx Auto Implanted Cardiovert Defib, Hx Cardiac Arrest, Hx Coronary Artery Disease, Hx Deep Vein Thrombosis, Hx Hypercholesterolemia, Hx Hypertension, Hx Pacemaker/ICD, Hx Peripheral Vascular Disease, Other Cardiovascular Problems/Disorders - VT with VF ICD going off Denies: Hx Congestive Heart Failure Respiratory History: Denies: Other Respiratory Problems/Disorders History: Reports: Hx Kidney Stones - IN THE PAST Denies: Hx Renal Disease Musculoskeletal History: Reports: Hx Arthritis Sensory History: Reports: Hx Contacts or Glasses - Glasses, Hx Hearing Problem - Bilateral hearing loss Denies: Hx Hearing Aid - Pt states that she used to have hearing aides but they broke and she doesn' Opthamlomology History: Reports: Hx Contacts or Glasses - Glasses Neurological History: Denies: Hx Dementia, Hx Developmental Delay, Hx Headaches Psychiatric History: Reports: Hx Anxiety, Hx Depression - Cancer History Hx Chemotherapy: No Hx Radiation Therapy: No - Surgical History Surgery Procedure, Year, and Place: pacer;. cabg'[id number];. right leg bypass;. c section;. cholecystectomy; Hx Anesthesia Reactions: No - Immunization History Hx Pertussis Vaccination: No Immunizations Up to Date: Unable to Obtain/Confirm Infectious Disease History: No Infectious Disease History: Reports: Hx Hepatitis - At age 19 Denies: Traveled Outside the [place] in Last 30 Days - Family History Known Family History: Positive: Other - Patient denies relevant FHx - Social History Occupation: Unemployed Lives: With Family Alcohol Use: None Hx Substance Use: No Substance Use Type: Reports: None Hx Tobacco Use: Yes Smoking Status (MU): Former Smoker Type: Cigarettes Amount Used/How Often: 1-2 PPD Length of Time of Smoking/Using Tobacco: 39 YEARS Have You Smoked in the Last Year: No Review of Systems Constitutional: Negative Negative: Fever, Chills, Fatigue, Skin Diaphoresis ENT: Negative Respiratory: Negative Positive: no symptoms reported, see HPI Positive: Other. Negative: Decreased ROM, Edema Positive: Bruising - ecchymosis surrounding a 3 x 3 cm palpable and slightly fluctuant nodule behind the left knee Neurological: Negative All Other Systems Reviewed And Are Negative: Yes Physical Exam Triage Information Reviewed: Yes Vital Signs On Initial Exam: Initial Vitals Temp Pulse Resp BP Pulse Ox 99 F 64 20 126/64 96 05/04/17 12:48 05/04/17 12:48 05/04/17 12:48 05/04/17 12:48 05/04/17 12:48 Vital Signs Reviewed: Yes Appearance: Positive: Well-Appearing, Well-Nourished Skin: Positive: Warm, Skin Color Reflects Adequate Perfusion, Other - Ecchymotic and slightly fluctuant nodule behind left knee Eyes: Positive: EOMI, RACHELLE Neck: Positive: Supple, No Lymphadenopathy Respiratory/Lung Sounds: Positive: Clear to Auscultation, Breath Sounds Present Cardiovascular: Positive: RRR, Pulses are Symmetrical in both Upper and Lower Extremities Musculoskeletal: Positive: Pain @ - Posterior left knee Neurological: Positive: Speech Normal Psychiatric: Positive: Affect/Mood Appropriate AVPU Assessment: Alert Diagnostics - Vital Signs Vital Signs Temp Pulse Resp BP Pulse Ox 05/04/17 14:46 97.3 F 67 16 156/70 95 05/04/17 12:48 99 F 64 20 126/64 96 - Laboratory Lab Statement: Any lab studies that have been ordered have been reviewed, and results considered in the medical decision making process. Lower Extremity Course/Dx - Course Course Of Treatment: Patient is evaluated for palpable nodule behind left knee which is slightly fluctuant. She was sent in by her PCP to rule out DT. She was recently hospitalized for sepsis and has since recovered. She denies any fevers, sweats, chills. Denies recent travel. Denies smoking history. She states she has been exercising the leg more frequently and first noticed the ecchymosis after stretching with her physical therapist. She believes the area may be due to a strain in the muscle. Ultrasound obtained and negative for any DVT or other acute findings. Patient is encouraged to apply moist heat to the area and will follow-up with her PCP. She is ambulating well and denies any pain with standing. - Diagnoses Provider Diagnoses: Posterior left knee pain Discharge - Discharge Plan Condition: Stable Disposition: HOME Referrals: Daryl Ashford MD [Primary Care Provider] - Additional Instructions: Please follow up with your PCP As discussed, there is no evidence of blood clot Warm heat pad to the area and continue to do gentle stretches
== END 2017-05-04 14:46 | disposition home or self-care (01) ==
LOC: ED 12:43
DX: M25.562 Pain in left knee (principal); Z87.891 Personal history of nicotine dependence; Z79.01 Long term (current) use of anticoagulants
CPT/HCPCS: 99281

== ENCOUNTER 2017-08-01 04:55 | Emergency (ER) | payer MEDICARE, BC ==
--- OUTSIDE RECORDS SUMMARY | 2017-08-01 05:07 | XMS REPORT ---
:1940 External Reference #:[id number] Author Organization [employer] Address [address] [address] Phone [phone] Care Team Providers Name Role Phone Daryl Ashford MD Primary Care Physician Unavailable Payers Type Date Identification Numbers Payment Provider Subscriber Medicare Primary Policy Number: [id number] Medicare Elisabeth Collins PayID: [id number] [address] [place] [address] [facility] Part [facility] Policy Number: [id number] [facility] Elisabeth Navarro Rider PayID: [id number] [address] [place] [address] Problems Date Description Provider Status Onset: 09/10/2013 [...] Active Onset: 02/08/2015 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 Active bypass graft Onset: 01/28/2016 Chronic ischemic heart disease Johanny Barba M.D. Active Onset: 04/30/2017 Encounter for planned postprocedural Hunter Gill M.D., [facility], Active wound closure [facility] Onset: 05/10/2017 Paroxysmal atrial fibrillation Johanny Barba M.D. Active Onset: 05/10/2017 Ventricular fibrillation Johanny Barba M.D. Active Onset: 05/10/2017 Acute subendocardial infarction Johanny Barba M.D. Active Family History Date [...] Strength Qnty SIG Indications Ordering Provider Clopidogrel 04/29/ Active Tablets 75mg 90tab 1 by mouth Hunter Bisulfate 2017 s every day Cady Gill, [facility], [facility] Magnesium Oxide 04/29/ Active Tablets 400mg 30tab 1 by mouth Hunter 2017 s twice rufus Gill M.D., [facility], [facility] Lipitor / Active Tablets 80mg 30tab 1 by mouth Unknown 0000 s every night at bedtime Niaspan / Active Tablets 500mg 30tab 1 by mouth Unknown 0000 s bid (pt not taking) Metoprolol / Active 50mg 1 tablet Unknown 0000 po bid Lasix / Active Tablets 40mg 90tab 2.5 by Unknown 0000 s mouth every day Potassium / Active Tablets ER 20Meq 90tab 2 tablets Unknown Chloride ER 0000 s by mouth am, 2 tablets at noon and 2 tablet pm (6 total per day) Aspirin / Active Tablets 81mg 1 by mouth Unknown 0000 every day Multivitamins 00/00/ Active Capsules 90cap 1 capsule Unknown 0000 s daily Calcium 00/ Active 600mg 2 po qd Unknown 0000 Tylenol / Active Tablets 325mg as needed Unknown 0000 (pt usually take 2 before bed every night) Lantus // Active Solution 100Unit/M 30 unit in Unknown 0000 L the am, 27 in the PM, based on BS. Fondaparinux / Active Solution 7.5mg/0.6 Once daily Unknown Sodium 0000 ML Omeprazole / Active Capsules 40mg 1 by mouth Unknown 0000 DR every day Probiotic / Active Tablets DR 1 tab bid Unknown 0000 Nitrostat / Active Tablets 0.4mg one sl Unknown 0000 Sub q5min up to 3 doses as needed Levothyroxine / Active Tablets 25mcg 1 by mouth Unknown Sodium 0000 every day Hyoscyamine / Active Tablets 0.125mg 1 by mouth Unknown Sulfate 0000 Sub three times per day Cyclobenzaprine 08/11/ Hx Tablets 5mg Johanny HCL Jeff Barba 05/19/ Cady 2014 Arixtra / Hx 10ml injection Unknown [...] Unknown Sulfate 0000 - every day 2016 Sertraline HCL / Hx Tablets 50mg 1 by mouth Unknown 0000 - every day 2017 Ceftriaxone / Hx Solution 2gm 2 grams Unknown Sodium 0000 - Rec daily iv [place] 2018 infusion ending 05/03/17 Fluconazole /00/ Hx Tablets 150mg once daily Dejon 0000 - x 3 days Daryl 2017 Nystatin / Hx Cream [id number] Chris, 0000 - t/GM Tonja A, 06/05/ N.P. 2018 Nystatin / Hx Powder [id number] topical Unknown 0000 - t/GM twice a 07/25/ day as 2018 needed Vital Signs Date Vital Result Comment 07/26/2017 Height 64.5 inches 5'4.50" Weight 193.00 lb with shoes Heart Rate 60 /min BP Systolic Sitting 108 mmHg Rue lrg cuff BP Diastolic Sitting 68 mmHg Rue lrg cuff Respiratory Rate 14 /min BMI (Body Mass Index) 32.6 kg/m2 Ejection Fraction 40-45% 04/18/2017-echo 06/06/2017 Height 64.5 inches 5'4.50" Heart Rate 60 /min BP Systolic Sitting 142 mmHg BP Diastolic Sitting 80 mmHg Respiratory Rate 14 /min Body Temperature 97.1 F 05/17/2017 Height 64.5 inches 5'4.50" Weight 193.38 lb Heart Rate 60 /min BP Systolic Sitting 148 mmHg BP Diastolic Sitting 64 mmHg Respiratory Rate 14 /min Body Temperature 96.9 F BMI (Body Mass Index) 32.7 kg/m2 05/10/2017 Height 64.5 inches 5'4.50" Weight 188.00 lb Heart Rate 68 /min BP Systolic Sitting 124 mmHg Lue large cuff BP Diastolic Sitting 72 mmHg Lue large cuff BP Systolic Standing 110 mmHg Lue BP Diastolic Standing 64 mmHg Lue Respiratory Rate 16 /min BMI (Body Mass Index) 31.8 kg/m2 Ejection Fraction 40-45% 04/18/17 04/30/2017 Height 64.5 inches 5'4.50" Weight 191.00 [...] Result H/L Range Note CBC Auto Diff 05/03/2017 White Blood Count 6.5 10^3/uL 3.5-10.8 Red Blood Count 3.71 10^6/uL Low 4.0-5.4 Hemoglobin 11.2 g/dL Low 12.0-16.0 Hematocrit 34 % Low 35-47 Mean Corpuscular Volume 92 fL 80-97 Mean Corpuscular Hemoglobin 30 pg 27-31 Mean Corpuscular HGB Conc 33 g/dL 31-36 Red Cell Distribution Width 14 % 10.5-15 Platelet Count 208 10^3/uL 150-450 Mean Platelet Volume 9 um3 7.4-10.4 Abs Neutrophils 4.2 10^3/uL 1.5-7.7 Abs Lymphocytes 1.6 10^3/uL 1.0-4.8 Abs Monocytes 0.5 10^3/uL 0-0.8 Abs Eosinophils 0.1 10^3/uL 0-0.6 Abs Basophils 0.1 10^3/uL 0-0.2 Abs Nucleated RBC 0 10^3/uL Granulocyte % 65.4 % 38-83 Lymphocyte % 24.6 % Low 25-47 Monocyte % 6.9 % 1-9 Eosinophil % 1.7 % 0-6 Basophil % 1.4 % 0-2 Nucleated Red Blood Cells % 0 Comp Metabolic Panel 05/03/2017 Sodium 135 mmol/L 133-145 Potassium 4.1 mmol/L 3.5-5.0 Chloride 99 mmol/L Low 101-111 Co2 Carbon Dioxide 30 mmol/L 22-32 Anion Gap 6 mmol/L 2-11 Glucose 222 mg/dL High 70-100 Blood Urea Nitrogen 19 mg/dL 6-24 Creatinine 0.63 mg/dL 0.51-0.95 BUN/Creatinine Ratio 30.2 High 8-20 Calcium 9.3 mg/dL 8.6-10.3 Total Protein 6.8 g/dL 6.4-8.9 Albumin 3.1 g/dL Low 3.2-5.2 Globulin 3.7 g/dL 2-4 Albumin/Globulin Ratio 0.8 Low 1-3 Total Bilirubin 0.50 mg/dL 0.2-1.0 Alkaline Phosphatase 76 U/L 34-104 Alt 27 U/L 7-52 Ast 24 U/L 13-39 Egfr Non- 92.1 >60 Egfr 118.5 >60 1 Laboratory test finding 05/03/2017 C Reactive Protein 10.92 mg/L High &lt ; 5.00 2 CBC Auto Diff 04/11/2017 White Blood Count [...] Factor 5 Leiden Mut Interp . () 3 Reviewed By SEE BELOW () 4 Factor II (Prothrombin) 10/12/2011 Prothrombin 04[address] [place] [address] Mutation Interp . () 5 Reviewed By SEE BELOW () 6 1 Because ethnic data is not always readily available, this report includes an eGFR for both -Americans and non- Americans. The National Kidney Disease Education Program (NKDEP) does not endorse the use of the MDRD equation for patients that are not between the ages of 18 and 70, are , have extremes of body size, muscle mass, or nutritional status, or are non- or non-. According to the National Kidney Foundation, irrespective of diagnosis, the stage of the disease is based on the level of kidney function: Stage Description GFR(mL/min/1.73 m(2)) 1 Kidney damage with normal or decreased GFR 90 2 Kidney damage with mild decrease in GFR 60-89 3 Moderate decrease in GFR 30-59 4 Severe decrease in GFR 15-29 5 Kidney failure <15 (or dialysis) 2 Acute inflammation: >10.00 3 This individual DOES NOT have the factor V Leiden (R506Q) mutation. Although the factor V Leiden mutation is absent, the individual may have other genetic and environmental risk factors for thrombosis. If clinically indicated, suggest Coagulation Consultation 57431 (Thrombophilia Profile) to complete the evaluation for an inherited or acquired thrombosing disorder (i.e., thrombophilia). This test is a direct mutation analysis of leukocyte genomic DNA by the Invader Assay system (Invader, [employer], [place], [place]). Analyte Specific Reagent. This test was developed and its performance characteristics determined by [facility]. It has not been cleared or approved by the U.S. Food and Drug Administration. 4 RESULT: GINNA Bingham Test Performed by: [place] [address] Hospice Patient Care Secretary: Toby Shabazz III, M.D. 5 This individual DOES NOT have the Prothrombin [id number] mutation. Although the Prothrombin O84158A mutation is absent, the individual may have other genetic and environmental risk factors for thrombosis. If clinically indicated, suggest Coagulation Consultation 33469 (Thrombophilia Profile) to complete the evaluation for an inherited or acquired thrombosing disorder (i.e., thrombophilia). Consider genetic consultation and counseling of potentially affected family members regarding laboratory testing. This test is a direct mutation analysis of leukocyte genomic DNA by the Invader Assay system (Invader, [employer], [place], [place]). Analyte Specific Reagent. This test was developed and its performance characteristics determined by [facility]. It has not been cleared or approved by the U.S. Food and Drug Administration. 6 RESULT: GINNA Bingham Test Performed by: [place] [address] Hospice Patient Care Secretary: Toby Shabazz III, M.D. Procedures Date CPT Code Description Status 07/25/2017 65396 Icd eval w/iterative adjment single lead Icd Completed 04/30/2017 30902 EKG Tracing & Interpretation Completed 04/27/2017 06760 EKG, Interpretation Only Completed 04/26/2017 15438 EKG, Interpretation Only Completed 04/25/2017 52716 Cardiac Cath,LT Hrtmincl Intraprocedural Ink LT Completed Ventricul Mammary 04/25/2017 51356 EKG, Interpretation Only Completed 04/25/2017 75486 Percutaneous Transcatheter Placement Of Intracoronary Completed Stent 04/24/2017 89956 Treadmill Interp/Report Only Completed 04/24/2017 31039 Stress Test Supervsn W/Out I/R Completed 04/22/2017 01432 Echocardiography, Transesophageal, Real Time W/Image 2D Completed W/W/O M-M 04/22/2017 05178 Pulse Wave/Continuous-Interp.RPT Completed 04/22/2017 73217 Color Flow Doppler/Interp & Reprt Completed 04/21/2017 99592 EKG, Interpretation Only Completed 04/20/2017 07274 EKG, Interpretation Only Completed 04/18/2017 85839 ECHO Transthorasic Realtime 2D W Doppler & Color Completed Flow Hosp 01/26/2017 98534 EKG Tracing & Interpretation Completed 12/22/2016 65787 Icd Eval W/Iterative Adjustmnt Single Lead Icd Completed 09/06/2016 29747 Icd Eval Sing,Dual,Multi Lead Remote Recpt Transm Tech Completed Rev Tech S 09/06/2016 67860 Icd Check Remote Up To 90 Days Single,Dual,Multiple Completed Lead 09/06/2016 91891 Icd Check Remote Up To 90 Days Single,Dual,Multiple Completed Lead 05/03/2016 92803 Icd eval w/iterative adjment single lead Icd Completed 01/28/2016 48313 EKG Tracing & Interpretation Completed 12/29/2015 92430 Icd eval w/iterative adjment single lead Icd Completed 08/25/2015 31113 Icd eval w/iterative adjment single lead Icd Completed 02/08/2015 55604 EKG Tracing & Interpretation Completed 12/30/2014 69164 Icd Eval Sing,Dual,Multi Lead Remote Recpt Transm Tech Completed Rev Tech S 12/30/2014 06901 Icd Check Remote Up To 90 Days Single,Dual,Multiple Completed Lead 08/27/2014 95055 Icd Check Single,Dual Or Multiple In Person W/DR Incl Completed Heart Rhyth 05/13/2014 65954 Icd Eval Sing,Dual,Multi Lead Remote Recpt Transm Tech Completed Rev Tech S 05/13/2014 33062 Icd Check Remote Up To 90 Days Single,Dual,Multiple Completed Lead 05/11/2014 61074 EKG Tracing & Interpretation Completed 01/06/2014 78981 Icd Check Remote Up To 90 Days Single,Dual,Multiple Completed Lead 01/06/2014 55776 Icd Eval Sing,Dual,Multi Lead Remote Recpt Transm Tech Completed Rev Tech S 01/06/2014 12347 Icd Eval Sing,Dual,Multi Lead Remote Recpt Transm Tech Completed Rev Tech S 09/08/2013 43643 Icd eval w/iterative adjment single lead Icd Completed 08/28/2013 51935 ECHO Transthoracic, Real-Time 2D With Doppler And Color Completed Flow 04/28/2013 26674 Icd Eval Sing,Dual,Multi Lead Remote Recpt Transm Tech Completed Rev Tech S 04/28/2013 56014 Icd Check Remote Up To 90 Days Single,Dual,Multiple Completed Lead 12/25/2012 64924 Icd eval w/iterative adjment single lead Icd Completed 08/22/2012 65371 Icd eval w/iterative adjment single lead Icd Completed 08/22/2012 89371 EKG Tracing & Interpretation Completed 04/25/2012 69319 Icd eval w/iterative adjment single lead Icd Completed Encounters Type Date Location Provider CPT E/M Dx Office Visit 06/06/2017 [facility] Luiza Dumont 50872 R21 10:10a Infectious Diseases Cady Curry Office Visit 05/17/2017 [facility] Luiza Dumont 69236 Z86.19 2:00p Infectious Diseases Cady Curry R21 Office Visit 05/10/2017 1:10p [facility] Caryn Barba M.D. 14725 I25.810 [facility] I21.4 I49.01 I48.0 I25.5 M79.606 Office Visit 04/30/2017 2:20p [facility] Bridgett Gill M.D., 09738 Z48.812 [facility] At [facility] I25.10 Office Visit 04/27/2017 3:32p [facility] [place] [address] I25.10 [facility] I47.2 Z95.810 I50.9 I48.91 Office Visit 04/26/2017 9:40a [facility] Bridgett Gill M.D., 51327 I25.10 [facility] At [facility] Office Visit 04/26/2017 3:31p [facility] Of Parminder Cook, 15717 I47.2 [facility] Z95.810 I50.9 I48.91 Office Visit 04/25/2017 3:30p [facility] Of Johanny Barba M.D. 38966 I48.0 Services Clerk I10 Office Visit 04/24/2017 4:14p [facility] Of Vinicio LintonElmer Justin, 43992 I47.2 [facility] Cady I25.10 Office Visit 04/24/2017 3:13p [facility] Robert Curry, 35898 R78.81 Infectious Diseases Cady B95.1 R93.1 I45.81 Z95.810 Office Visit 04/23/2017 3:28p [facility] Of Johanny Barba M.D. 55183 A41.9 Services Clerk I48.0 Office Visit 04/22/2017 3:26p [facility] Of Johanny Barba M.D. 90019 R78.81 Services Clerk I47.2 Office Visit 04/21/2017 3:25p [facility] Of Johanny Barba M.D. 53716 A41.9 Services Clerk I47.2 I25.10 I42.9 I48.0 Office Visit 04/20/2017 3:22p [facility] Of oJhanny Barba M.D. 37072 I48.0 [facility] Z95.810 I47.2 Office Visit 04/18/2017 3:03p [facility] Robert Curry, 86409 R78.81 Infectious Diseases Cady B95.1 R68.89 Z95.0 L03.315 Office Visit 01/26/2017 10:20a [facility] Of Johanny Barba M.D. 73346 I25.810 Services Clerk At [facility] I73.9 I65.29 E78.00 I10 E11.8 I34.0 Z95.810 Office Visit 01/28/2016 8:20a [facility] Caryn Barba M.D. 92132 Z95.810 Services Clerk At [facility] I25.810 E78.00 I10 I25.5 E11.8 Office Visit 02/08/2015 8:15a [facility] Johanny Barba M.D. 69948 I73.9 [facility] Z95.810 I10 E78.0 I25.810 R94.31 I47.2 Office Visit 07/05/2014 1:06p [facility], Moy Monreal M.D. 21590 578.9 Hospitalists 285.1 414.00 443.9 Office Visit 05/11/2014 8:15a [facility] Johanny Barba M.D. 71420 414.02 Services Clerk 250.90 272.0 401.9 427.1 V45.02 Office Visit 09/10/2013 9:15a [facility] Johanny Barba M.D. 87991 443.9 Services Clerk 272.0 401.9 414.02 V45.02 Office Visit 12/25/2012 9:45a [facility] Johanny Barba M.D. 58735 414.02 Services Clerk 443.9 401.9 272.0 Office Visit 05/10/2012 9:48a [facility], Moy Monreal M.D. 51999 682.6 Hospitalists 250.90 278.00 V12.51 Office Visit 05/08/2012 9:48a [facility], Ander Winkler, 18542 682.6 Hospitalists N.P. 250.90 278.00 V12.51 Office Visit 05/06/2012 9:47a [facility], Moy Monreal M.D. 21404 276.51 Hospitalists 008.8 443.81 Office Visit 05/04/2012 9:46a [facility] 51616 276.51 Assoc, Hospitalists N.P. 008.8 682.8 443.81 Office Visit 04/25/2012 9:15a [facility] Pacer Schedule 07575 414.02 Services Clerk 427.1 443.9 401.9 Plan of Care Future Appointment(s):10/12/2017 8:20 am - Johanny Barba M.D. at [facility] At [facility]07/26/2017 - Nathalia Cuadra, N.P.I49.01 Ventricular fibrillationFollow up:2 mo OV SwisherRecommendations:Paceer showed no further episode of vertricular tachycardia.I48.0 Paroxysmal atrial hpgosmunurmpR67.5 Ischemic cardiomyopathyRecommendations:Continue Lasix 40mg 2.5mg tab daily. Contine ASA and Plavix, Metoprolol and QfpgckpT77.810 Presence of automatic ( implantable) cardiac defibrillatorRecommendations:Continue regular interrogations
[2017-08-01 06:13] VITALS: BP 121/43
--- NOTE | 2017-08-01 06:49 | ED ---
David Moise Abhishek, scribed for Kalie Mullins MD on 08/01/17 at 0616 . HPI Cardiac - HPI Summary HPI Summary: The pt is a 76 y/o female with a chief complaint of pacemaker functionality presenting to the [facility]. The pt states she "heard a sound" that was previously described to her as a sign that the pacemaker may be "off" or not working by her comber tender. The pt is unsure of when her last battery replacement was. PMHx includes double bypass surgery and low blood sugar. Pt denies syncope. The patient rates the pain 0/10 in severity. Symptoms aggravated by nothing. Symptoms alleviated by nothing. - History of Current Complaint Chief Complaint: EDGeneral Stated Complaint: PACE MAKER ISSUES Time Seen by Provider: 08/01/17 05:06 Hx Obtained From: Patient, Family/Riveter Portable Machine Hx Last Menstrual Period: N/A Timing: Constant Pain Intensity: 0 Pain Scale Used: 0-10 Numeric Aggravating Factor(s): Nothing Alleviating Factor(s): Nothing Associated Signs and Symptoms: Positive: Negative - Additional Pertinent History Primary Care Physician: SID - Allergy/Home Medications Allergies/Adverse Reactions: Allergies Allergy/AdvReac Type Severity Reaction Status Date / Time No Known Allergies Allergy Verified 07/24/17 18:17 PMH/Surg Hx/FS Hx/Imm Hx Endocrine/Hematology History: Reports: Hx Anticoagulant Therapy - arixtra, Hx Diabetes Denies: Hx Thyroid Disease Cardiovascular History: Reports: Hx Auto Implanted Cardiovert Defib, Hx Cardiac Arrest, Hx Coronary Artery Disease, Hx Deep Vein Thrombosis, Hx Hypercholesterolemia, Hx Hypertension, Hx Pacemaker/ICD, Hx Peripheral Vascular Disease, Other Cardiovascular Problems/Disorders - VT with VF ICD going off Denies: Hx Congestive Heart Failure Respiratory History: Denies: Other Respiratory Problems/Disorders History: Reports: Hx Kidney Stones - IN THE PAST Denies: Hx Renal Disease Musculoskeletal History: Reports: Hx Arthritis Sensory History: Reports: Hx Contacts or Glasses - Glasses, Hx Hearing Problem - Bilateral hearing loss Denies: Hx Hearing Aid - Pt states that she used to have hearing aides but they broke and she doesn' Opthamlomology History: Reports: Hx Contacts or Glasses - Glasses Neurological History: Denies: Hx Dementia, Hx Developmental Delay, Hx Headaches Psychiatric History: Reports: Hx Anxiety, Hx Depression - Cancer History Hx Chemotherapy: No Hx Radiation Therapy: No - Surgical History Surgery Procedure, Year, and Place: pacer;. cabg'99;. right leg bypass;. c section;. cholecystectomy; Hx Anesthesia Reactions: No Infectious Disease History: No Infectious Disease History: Reports: Hx Hepatitis - At age 19 Denies: Traveled Outside the [place] in Last 30 Days - Family History Known Family History: Positive: Other - Patient denies relevant FHx - Social History Alcohol Use: None Substance Use Type: Reports: None Smoking Status (MU): Former Smoker Type: Cigarettes Amount Used/How Often: 1-2 PPD Length of Time of Smoking/Using Tobacco: 39 YEARS Have You Smoked in the Last Year: No Review of Systems Constitutional: Negative Eyes: Negative ENT: Negative Cardiovascular: Other - Pacemaker "Sound" Respiratory: Negative Gastrointestinal: Negative Genitourinary: Negative Musculoskeletal: Negative Skin: Negative Negative: Syncope Psychological: Normal All Other Systems Reviewed And Are Negative: Yes Physical Exam - Summary Physical Exam Summary: VITAL SIGNS: Reviewed. GENERAL: ~Patient is a well-developed and nourished (FEMALE) who is lying comfortable in the stretcher. Patient is not in any acute respiratory distress. HEAD AND FACE: No signs of trauma. No ecchymosis, hematomas or skull depressions. No sinus tenderness. EYES: PERRLA, EOMI x 2, No injected conjunctiva, no nystagmus. EARS: Hearing grossly intact. Ear canals and tympanic membranes are within normal limits. MOUTH: Oropharynx within normal limits. NECK: Supple, trachea is midline, no adenopathy, no JVD, no carotid bruit, no c- spine tenderness, neck with full ROM. CHEST: Symmetric, no tenderness at palpation LUNGS: Clear to auscultation bilaterally. No wheezing or crackles. CVS: Regular rate and rhythm, S1 and S2 present, no murmurs or gallops appreciated. ABDOMEN: Soft, non-tender. No signs of distention. No rebound no guarding, and no masses palpated. Bowel sounds are normal. EXTREMITIES: FROM in all major joints, no edema, no cyanosis or clubbing. NEURO: Alert and oriented x 3. No acute neurological deficits. Speech is normal and follows commands. SKIN: Dry and warm Triage Information Reviewed: Yes Vital Signs On Initial Exam: Initial Vitals Temp Pulse Resp BP Pulse Ox 97.6 F 59 16 138/70 97 08/01/17 05:01 08/01/17 05:01 08/01/17 05:01 08/01/17 05:01 08/01/17 05:01 Vital Signs Reviewed: Yes Diagnostics - Vital Signs Vital Signs Temp Pulse Resp BP Pulse Ox 08/01/17 05:33 59 16 99 08/01/17 05:01 97.6 F 59 16 138/70 97 - Laboratory Lab Statement: Any lab studies that have been ordered have been reviewed, and results considered in the medical decision making process. - EKG 0523 EKG Interpretation: EKG at 0523 reveals 63 sinus rhythm with LBBB Disposition - Course Course Of Treatment: The pt is a 76 y/o female presenting to the [facility] due to a chief complaint of pacemaker functionality. The pt states she heard a sound which may be caused by a malfunctioning pacemaker. We consulted a Bank Examiner from [employer] (Angelica) and he states that the AICD is working fine and pt can be discharged home. We discussed assessment and plan with the pt. The pt agrees and will be discharged home with a dx of pacemaker malfunction. - Diagnoses Provider Diagnoses: Pacemaker malfunction Discharge - Sign-Out/Discharge Documenting (check all that apply): Discharge - Home - Discharge Plan Condition: Stable Disposition: HOME Patient Education Materials: Pacemaker (DC) Referrals: Daryl Ashford MD [Primary Care Provider] - () Additional Instructions: Please follow up with your comber tender by tomorrow. RETURN TO EMERGENCY DEPARTMENT FOR ANY NEW OR WORSENING SYMPTOM The documentation as recorded by the David kim Abhishek accurately reflects the service I personally performed and the decisions made by me, Kalie Mullnis MD.
== END 2017-08-01 06:20 | disposition home or self-care (01) ==
LOC: ED 04:55
DX: T82.119A Breakdown (mechanical) of unspecified cardiac electronic device, initial encounter (principal); I25.10 Atherosclerotic heart disease of native coronary artery without angina pectoris; I10 Essential (primary) hypertension; Z95.1 Presence of aortocoronary bypass graft; Z86.74 Personal history of sudden cardiac arrest; E78.00 Pure hypercholesterolemia, unspecified; Z86.718 Personal history of other venous thrombosis and embolism; Z79.01 Long term (current) use of anticoagulants; I73.9 Peripheral vascular disease, unspecified; Z87.442 Personal history of urinary calculi; F41.9 Anxiety disorder, unspecified; F32.9 Major depressive disorder, single episode, unspecified; Z87.891 Personal history of nicotine dependence; N39.0 Urinary tract infection, site not specified
CPT/HCPCS: 93005; 99282

== ENCOUNTER 2017-08-18 20:27 | Observation (INO) | payer MEDICARE, BC ==
[~2017-08-18 20:27] MED LIST: Ondansetron ODT TAB* 4 MG PO PRN
[2017-08-18] MEDS ORDERED: NS 0.9% 500 ML* 500 ML IV ONE (21:00)
[2017-08-18] MEDS ORDERED: Aspirin 81 mg CHEW TAB* 81 MG TAB.CHEW PO ONE (21:00)
[2017-08-18 22:07] LABS: INR 1.06 (0.77-1.02)
[2017-08-18 22:15] LABS: ABS Basophils 0 10^3/ul (0-0.2); ABS Eosinophils 0.1 10^3/ul (0-0.6); ABS Lymphocytes 1.4 10^3/ul (1.0-4.8); ABS Monocytes 0.4 10^3/ul (0-0.8); ABS Neutrophils 2.7 10^3/ul (1.5-7.7); ABS Nucleated RBC 0 10^3/ul; Hematocrit 34 % (35-47); Hemoglobin 11.5 g/dl (12.0-16.0); Lymphocyte % 29.9 % (25-47); Mean Corpuscular HGB Conc 34 g/dl (31-36); Mean Corpuscular Hemoglobin 30 pg (27-31); Mean Corpuscular Volume 87 fL (80-97); Mean Platelet Volume 8.6 um3 (7.4-10.4); Nucleated Red Blood Cells % 0; Platelet Count 134 10^3/ul (150-450); Red Blood Count 3.89 10^6/ul (4.0-5.4); Red Cell Distribution Width 15 % (10.5-15); White Blood Count 4.7 10^3/ul (3.5-10.8)
[2017-08-18 22:18] LABS: EGFR Non-African American 63.5 (>60)
[2017-08-18] MEDS ORDERED: CMCS: Melatonin (NF) 3 MG TAB PO PRN (22:59)
[2017-08-18] MEDS ORDERED: Ondansetron INJ* 2 MG/ML VIAL IV PRN (22:59)
[2017-08-18] MEDS ORDERED: Acetaminophen TAB* 325 MG PO PRN (22:59)
[2017-08-18] MEDS ORDERED: Morphine INJ* 2 MG/ML 1 ML CARPUJECT IV PRN (22:59)
[2017-08-18] MEDS ORDERED: Albuterol 2.5 MG/3 ML NEB.SOL* (0.083%) INH PRN (22:59)
[2017-08-18] MEDS ORDERED: NS 0.9% 1000 ML* 1,000 ML IV SCH (23:00)
--- NOTE | 2017-08-18 23:13 | HP ---
H&P (Free Text) History and Physical: PCP: Ale Ashford MD Cardiology: Tony Barba MD Date/Time: 08/18/2017 2250 CC: chest pain HPI: Mrs Collins is a 76YO female HX CAD s/p cardiac cath with stent placement Apr 2017, 2vCABG, VT, ischemic cardiomyopathy EF 40-45%, PAOD s/p R femoral bypass, DM2 requiring insulin, RLE DVT, & HTN who presents reporting feel "off" all day to which she cannot further characterize. Around 1800 she developed 5/ 10 non-exertional non-radiating dull chest aching associated with SOB and light- headedness, but no nausea, diaphoresis, or palpitations. She does admit to chest congestion and cough producing scant clear phlegm for the past few days, but no F/C. PMedHx CAD/2vCABG 1998 ventricular tachycardia ischemic cardiomyopathy EF 40-45% PAOD s/p R femoral bypass DM2, insulin requiring RLE DVT HTN hypothyroidism depression Ambulatory Orders Nursing to reconcile. Atorvastatin* [Lipitor 80 MG*] 80 mg PO BEDTIME 05/04/12 Calcium Carbonate [Calcium] 600 mg PO BID 05/04/12 Furosemide TAB* [Lasix TAB*] 80 mg PO QAM 05/04/12 Metoprolol Tartrate TAB* [Lopressor TAB*] 50 mg PO BID 05/04/12 Multivitamins/Minerals TAB* [Thera M Plus TAB*] 1 tab PO DAILY 05/04/12 Potassium Chlor Tab* [K Dur Tab*] 40 meq PO TID 05/04/12 Acetaminophen [Tylenol Extra Strength] 1,000 mg PO BEDTIME 08/02/13 Omeprazole CAP* [Prilosec CAP* 20 MG] 40 mg PO DAILY 07/10/14 Aspirin EC TAB* [Ecotrin EC Low Dose 81 MG*] 81 mg PO DAILY 05/19/15 Fondaparinux* [Arixtra*] 7.5 mg SUBCUT DAILY 05/19/15 Hyoscyamine TAB* [Anaspaz 0.125 MG TAB*] 0.125 mg PO TID 05/19/15 Insulin Glargine [Lantus Solostar] 30 units SUBCUT QAM 07/23/15 Insulin Glargine,Hum.rec.anlog [Lantus] 27 unit SUBCUT BEDTIME 04/16/17 Lactobacillus Acidophilus [Probiotic] 1 cap PO BID 04/16/17 Sertraline HCl [Zoloft] 50 mg PO DAILY 04/16/17 Clopidogrel TAB* [Plavix TAB*] 75 mg PO DAILY #30 tab 04/27/17 Magnesium Oxide TAB* [MagOx 400 TAB*] 400 mg PO BID #60 tab 04/27/17 Allergies rivaroxaban [From Xarelto] Allergy (Verified 08/18/17 20:43) Bleeding PSurgHx pacer placement cataract extraction SocHx: former smoker w/ ~15PYHX, denies alcohol & recreational drugs; FamHx: Mother: CAD; Father: DM2; Sister: HTN, HLD ROS: as above, otherwise reviewed and all were negative vitals: Vital Signs Temp 36.7 C 08/19/17 00:26 Pulse 67 08/19/17 00:26 Resp 23 08/19/17 00:26 BP 163/67 08/19/17 00:26 Pulse Ox 100 08/19/17 00:26 Intake & Output 08/18/17 08/18/17 08/19/17 11:59 23:59 11:59 Intake Total 500 Balance 500 Weight 86.183 kg Intake: IV Fluids 500 Constitutional: NAD, normally developed, obese white female HEENM: atraumatic; sclera/conjunctiva: anicteric/clear; hearing: clinically moderately decreased; oropharynx: clear, mucosa moist Neck: soft tissue: non-tender; thyroid: normal Pulmonary: clear to auscultation bilaterally, good aeration, no accessory muscle use CV: RR/RR, normal S1S2, no carotid bruit, no jugular venous distention, 2+ B DP/ PT, trace BLE edema Abdominal: soft, non-distended, non-tender, no rebound/guarding/rigidity, normoactive bowel sounds, no hepatosplenomegaly or masses, no costovertebral angle tenderness Musculoskeletal: general: grossly intact, no tenderness with palpation Integumental: normal appearance and texture of exposed skin Psychiatric orientation: AA&O to PPS affect: anxious mood: cooperative eye contact: fair content: reliable responses: timely insight: fair Testing: Lab Results 08/18/17 08/18/17 08/18/17 Range/Units 21:46 21:46 21:46 WBC 4.7 (3.5-10.8) 10^3/ul RBC 3.89 L (4.0-5.4) 10^6/ul Hgb 11.5 L (12.0-16.0) g/dl Hct 34 L (35-47) % MCV 87 (80-97) fL MCH 30 (27-31) pg MCHC 34 (31-36) g/dl RDW 15 (10.5-15) % Plt Count 134 L (150-450) 10^3/ul MPV 8.6 (7.4-10.4) um3 Neut % (Auto) 58.3 (38-83) % Lymph % (Auto) 29.9 (25-47) % [place] % (Auto) 8.0 H (0-7) % Eos % (Auto) 3.0 (0-6) % Baso % (Auto) 0.8 (0-2) % Absolute Neuts (auto) 2.7 (1.5-7.7) 10^3/ul Absolute Lymphs (auto) 1.4 (1.0-4.8) 10^3/ul Absolute Monos (auto) 0.4 (0-0.8) 10^3/ul Absolute Eos (auto) 0.1 (0-0.6) 10^3/ul Absolute Basos (auto) 0 (0-0.2) 10^3/ul Absolute Nucleated RBC 0 10^3/ul Nucleated RBC % 0 INR (Anticoag Therapy) 1.06 H (0.77-1.02) APTT 37.4 H (26.0-36.3) seconds Sodium (139-145) mmol/L Potassium (3.5-5.0) mmol/L Chloride (101-111) mmol/L Carbon Dioxide (22-32) mmol/L Anion Gap (2-11) mmol/L BUN (6-24) mg/dL Creatinine (0.51-0.95) mg/dL Est GFR ( Amer) (>60) Est GFR (Non-Af Amer) (>60) BUN/Creatinine Ratio (8-20) Glucose (70-100) mg/dL Lactic Acid (0.5-2.0) mmol/L Calcium (8.6-10.3) mg/dL Total Bilirubin (0.2-1.0) mg/dL AST (13-39) U/L ALT (7-52) U/L Alkaline Phosphatase (34-104) U/L Troponin I (<0.04) ng/mL B-Natriuretic Peptide 208 H ( - 100) pg/mL Total Protein (6.4-8.9) g/dL Albumin (3.2-5.2) g/dL Globulin (2-4) g/dL Albumin/Globulin Ratio (1-3) TSH (0.34-5.60) mcIU/mL Urine Color Urine Appearance Urine pH (5-9) Ur Specific [place] (1.010-1.030) Urine Protein (Negative) Urine Ketones (Negative) Urine Blood (Negative) Urine Nitrate (Negative) Urine Bilirubin (Negative) Urine Urobilinogen (Negative) Ur Leukocyte Esterase (Negative) Urine WBC (Auto) (Absent) Urine RBC (Auto) (Absent) Ur Squamous Epith Cells (Absent) Urine Bacteria (Absent) Urine Glucose (Negative) Urine Ascorbic Acid (Negative) 08/18/17 08/18/17 08/18/17 Range/Units 21:46 21:46 22:59 WBC (3.5-10.8) 10^3/ul RBC (4.0-5.4) 10^6/ul Hgb (12.0-16.0) g/dl Hct (35-47) % MCV (80-97) fL MCH (27-31) pg MCHC (31-36) g/dl RDW (10.5-15) % Plt Count (150-450) 10^3/ul MPV (7.4-10.4) um3 Neut % (Auto) (38-83) % Lymph % (Auto) (25-47) % [place] % (Auto) (0-7) % Eos % (Auto) (0-6) % Baso % (Auto) (0-2) % Absolute Neuts (auto) (1.5-7.7) 10^3/ul Absolute Lymphs (auto) (1.0-4.8) 10^3/ul Absolute Monos (auto) (0-0.8) 10^3/ul Absolute Eos (auto) (0-0.6) 10^3/ul Absolute Basos (auto) (0-0.2) 10^3/ul Absolute Nucleated RBC 10^3/ul Nucleated RBC % INR (Anticoag Therapy) (0.77-1.02) APTT (26.0-36.3) seconds Sodium 139 (139-145) mmol/L Potassium 4.2 (3.5-5.0) mmol/L Chloride 107 (101-111) mmol/L Carbon Dioxide 30 (22-32) mmol/L Anion Gap 2 (2-11) mmol/L BUN 20 (6-24) mg/dL Creatinine 0.87 (0.51-0.95) mg/dL Est GFR ( Amer) 81.6 (>60) Est GFR (Non-Af Amer) 63.5 (>60) BUN/Creatinine Ratio 23.0 H (8-20) Glucose 182 H (70-100) mg/dL Lactic Acid 1.1 (0.5-2.0) mmol/L Calcium 9.0 (8.6-10.3) mg/dL Total Bilirubin 0.40 (0.2-1.0) mg/dL AST 32 (13-39) U/L ALT 21 (7-52) U/L Alkaline Phosphatase 101 (34-104) U/L Troponin I 0.01 (<0.04) ng/mL B-Natriuretic Peptide ( - 100) pg/mL Total Protein 6.9 (6.4-8.9) g/dL Albumin 3.2 (3.2-5.2) g/dL Globulin 3.7 (2-4) g/dL Albumin/Globulin Ratio 0.9 L (1-3) TSH 5.65 H (0.34-5.60) mcIU/mL Urine Color Yellow Urine Appearance Clear Urine pH 7.0 (5-9) Ur Specific [place] 1.014 (1.010-1.030) Urine Protein Negative (Negative) Urine Ketones Negative (Negative) Urine Blood Negative (Negative) Urine Nitrate Negative (Negative) Urine Bilirubin Negative (Negative) Urine Urobilinogen Negative (Negative) Ur Leukocyte Esterase Trace A (Negative) Urine WBC (Auto) Trace(0-5/hpf) (Absent) Urine RBC (Auto) Trace(0-2/hpf) (Absent) Ur Squamous Epith Cells Present A (Absent) Urine Bacteria Absent (Absent) Urine Glucose Negative (Negative) Urine Ascorbic Acid * A (Negative) ECG, personally reviewed: sinus LBBB rate 61; unchanged from comparison 2017 CXR, personally reviewed: chronically elevated L angella-diaphragm, pacer L chest, no acute findings RAYNA (04/22/2017): Conclusions: Mild global hypokinesis of the left ventricle is observed. The estimated ejection fraction is 40-45%. The right ventricular global systolic function is mildly reduced. A pacemaker wire is visualized in the right ventricle and in the right atrium. No vegetations noted on the pacemaker leads. There were late bubbles seen in the left atrium c/w small cardiopulmonary shunt, possible PFO. Aortic valve sclerosis with normal function. There is a trace of mitral regurgitation. A calcific structure is visualized on the subvalvualr apparatus of the mitral valve, possible vegetation vs. sclerosis. Measures 0.3cm by 0.9cm 3 chamber view. There is trace tricuspid regurgitation. There is moderate calcific plaque visualized in the descending aorta. Aortic arch not visualized. Compared with prior echo of , EF is stable, the degree of MR and TR have improved, previously moderate , PA pressure previously 57 mmHg, valvular sclerosis noted on prior study. Cardiac Cath (04/25/2017): OVERALL ASSESSMENT: Significant disease involving the proximal portion of the second obtuse marginal branch with prior stented area with severe in-stent restenosis treated with balloon angioplasty, but unsuccessful in delivering any stent with residual stenosis still present as described above. Successful reduction of critical 95% mid lesion in the mid circumflex with balloon angioplasty and placement of the 3.5 x 16 mm long synergy drug eluting stent dilated at 4.2 mm with high pressure balloon inflations with PAT-3 flow, no dissection seen, and 10% residual stenosis. At this point in time, the patient should be maintained on dual antiplatelet agents for probably 30 months. Medical management for obtuse marginal branch would probably be best at this point in time given the difficulty of delivering any type of stent to this area. The patient will have a wound check with me within 7 to 10 days and follow up with primary craft recruiter, Dr. Johanny Barba. Impression: 76F HX CAD/2vCABG/stent, ischemic cardiomyopathy EF 40-45%, PAOD, DM2, RLE DVTl, HTN presents with chest pain for r/o ACS DIAGNOSIS & PLAN Primary chest pain r/o ACS : HX CAD/2vCABG : telemetry : trend troponin : aspirin : continue metoprolol : supplemental oxygen : consider cardiology consult, pending above : supportive care Secondary ventricular tachycardia : no current issues ischemic cardiomyopathy EF 40-45% : review meds once reconciled PAOD s/p R femoral bypass : review meds once reconciled DM2, insulin requiring HX RLE DVT : continue fondaparinux once reconciled HTN : review meds once reconciled hypothyroidism : review meds once reconciled depression : review meds once reconciled Admission Rational: observation or r/o ACS DVTp: fondaparinux Code Status: full HCP:
[2017-08-18 23:19] LABS: Urine Appearance Clear; Urine Blood Negative (Negative); Urine Color Yellow; Urine Ketones Negative (Negative); Urine Protein Negative (Negative); Urine Specific Gravity 1.014 (1.010-1.030); Urine Urobilinogen Negative (Negative)
--- NOTE | 2017-08-19 04:23 | ED ---
Blanche Moise Emily, scribed for Daniel Leach MD on 08/18/17 at 2059 . 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 The patient rates the pain 0/10 in severity. Symptoms aggravated by nothing. Symptoms alleviated by nothing. Patient reports SOB and dizziness. Pt reports having similar symptoms previously, but that has not occurred for at least a year. - History of Current Complaint Chief Complaint: EDShortnessOfBreath Time Seen by Provider: 08/18/17 20:49 Hx Obtained From: Patient Hx Last Menstrual Period: N/A Onset/Duration: Started Hours Ago, Resolved Timing: Constant Initial Severity: Mild Current Severity: Mild Pain Intensity: 0 Pain Scale Used: 0-10 Numeric Aggravating Factor(s): Nothing Alleviating Factor(s): Nothing Associated Signs and Symptoms: Positive: Other: - Positive SOB and dizziness - Additional Pertinent History Primary Care Physician: SID - Allergy/Home Medications Allergies/Adverse Reactions: Allergies Allergy/AdvReac Type Severity Reaction Status Date / Time rivaroxaban [From Xarelto] Allergy Bleeding Verified 08/18/17 20:43 PMH/Surg Hx/FS Hx/Imm Hx Previously Healthy: No Endocrine/Hematology History: Reports: Hx Anticoagulant Therapy - arixtra, Hx Diabetes Denies: Hx Thyroid Disease Cardiovascular History: Reports: Hx Auto Implanted Cardiovert Defib, Hx Cardiac Arrest, Hx Coronary Artery Disease, Hx Deep Vein Thrombosis, Hx Hypercholesterolemia, Hx Hypertension, Hx Pacemaker/ICD, Hx Peripheral Vascular Disease, Other Cardiovascular Problems/Disorders - VT with VF ICD going off Denies: Hx Congestive Heart Failure Respiratory History: Denies: Other Respiratory Problems/Disorders History: Reports: Hx Kidney Stones - IN THE PAST Denies: Hx Renal Disease Musculoskeletal History: Reports: Hx Arthritis Sensory History: Reports: Hx Contacts or Glasses - Glasses, Hx Hearing Problem - Bilateral hearing loss Denies: Hx Hearing Aid - Pt states that she used to have hearing aides but they broke and she doesn' Opthamlomology History: Reports: Hx Contacts or Glasses - Glasses Neurological History: Denies: Hx Dementia, Hx Developmental Delay, Hx Headaches Psychiatric History: Reports: Hx Anxiety, Hx Depression - Cancer History Hx Chemotherapy: No Hx Radiation Therapy: No - Surgical History Surgery Procedure, Year, and Place: pacer;. [id number];. right leg bypass;. c section;. cholecystectomy; Hx Anesthesia Reactions: No - Immunization History Date of Tetanus Vaccine: utd Date of Influenza Vaccine: fall 2016 Infectious Disease History: No Infectious Disease History: Reports: Hx Hepatitis - At age 19 Denies: Traveled Outside the [place] in Last 30 Days - Family History Known Family History: Positive: Cardiac Disease - Social History Occupation: Retired Lives: With Family Alcohol Use: None Substance Use Type: Reports: None Smoking Status (MU): Former Smoker Type: Cigarettes Amount Used/How Often: 1-2 PPD Length of Time of Smoking/Using Tobacco: 39 YEARS Have You Smoked in the Last Year: No Review of Systems Positive: Chest Pain Positive: Shortness Of Breath Neurological: Other - Positive dizziness and lightheadedness All Other Systems Reviewed And Are Negative: Yes Physical Exam - Summary Physical Exam Summary: Appearance: Well appearing, no pain distress Skin: warm, dry, reflects adequate perfusion, Plantar diabetic foot wounds. Tiny sores with offloadings, sternotomy scar Head/face: normal Eyes: EOMI, RACHELLE ENT: normal Neck: supple, non-tender Respiratory: CTA, breath sounds present Cardiovascular: RRR, pulses symmetrical Abdomen: non-tender, soft, no CVA tenderness Bowel Sounds: present Musculoskeletal: normal, strength/ROM intact Neuro: normal, sensory motor intact, A&Ox3 Psych: slightly anxious Triage Information Reviewed: Yes Vital Signs On Initial Exam: Initial Vitals Resp 15 08/18/17 20:34 Vital Signs Reviewed: Yes Diagnostics - Vital Signs Vital Signs Temp Pulse Resp BP Pulse Ox 08/18/17 20:42 97 F 64 16 160/65 100 08/18/17 20:35 16 160/65 08/18/17 20:34 15 - Laboratory Lab Results: Lab Results 08/18/17 08/18/17 08/18/17 Range/Units 21:46 21:46 21:46 WBC 4.7 (3.5-10.8) 10^3/ul RBC 3.89 L (4.0-5.4) 10^6/ul Hgb 11.5 L (12.0-16.0) g/dl Hct 34 L (35-47) % MCV 87 (80-97) fL MCH 30 (27-31) pg MCHC 34 (31-36) g/dl RDW 15 (10.5-15) % Plt Count 134 L (150-450) 10^3/ul MPV 8.6 (7.4-10.4) um3 Neut % (Auto) 58.3 (38-83) % Lymph % (Auto) 29.9 (25-47) % [place] % (Auto) 8.0 H (0-7) % Eos % (Auto) 3.0 (0-6) % Baso % (Auto) 0.8 (0-2) % Absolute Neuts (auto) 2.7 (1.5-7.7) 10^3/ul Absolute Lymphs (auto) 1.4 (1.0-4.8) 10^3/ul Absolute Monos (auto) 0.4 (0-0.8) 10^3/ul Absolute Eos (auto) 0.1 (0-0.6) 10^3/ul Absolute Basos (auto) 0 (0-0.2) 10^3/ul Absolute Nucleated RBC 0 10^3/ul Nucleated RBC % 0 INR (Anticoag Therapy) 1.06 H (0.77-1.02) APTT 37.4 H (26.0-36.3) seconds Sodium (139-145) mmol/L Potassium (3.5-5.0) mmol/L Chloride (101-111) mmol/L Carbon Dioxide (22-32) mmol/L Anion Gap (2-11) mmol/L BUN (6-24) mg/dL Creatinine (0.51-0.95) mg/dL Est GFR ( Amer) (>60) Est GFR (Non-Af Amer) (>60) BUN/Creatinine Ratio (8-20) Glucose (70-100) mg/dL Lactic Acid (0.5-2.0) mmol/L Calcium (8.6-10.3) mg/dL Total Bilirubin (0.2-1.0) mg/dL AST (13-39) U/L ALT (7-52) U/L Alkaline Phosphatase (34-104) U/L Troponin I (<0.04) ng/mL B-Natriuretic Peptide 208 H ( - 100) pg/mL Total Protein (6.4-8.9) g/dL Albumin (3.2-5.2) g/dL Globulin (2-4) g/dL Albumin/Globulin Ratio (1-3) TSH (0.34-5.60) mcIU/mL 08/18/17 08/18/17 Range/Units 21:46 21:46 WBC (3.5-10.8) 10^3/ul RBC (4.0-5.4) 10^6/ul Hgb (12.0-16.0) g/dl Hct (35-47) % MCV (80-97) fL MCH (27-31) pg MCHC (31-36) g/dl RDW (10.5-15) % Plt Count (150-450) 10^3/ul MPV (7.4-10.4) um3 Neut % (Auto) (38-83) % Lymph % (Auto) (25-47) % [place] % (Auto) (0-7) % Eos % (Auto) (0-6) % Baso % (Auto) (0-2) % Absolute Neuts (auto) (1.5-7.7) 10^3/ul Absolute Lymphs (auto) (1.0-4.8) 10^3/ul Absolute Monos (auto) (0-0.8) 10^3/ul Absolute Eos (auto) (0-0.6) 10^3/ul Absolute Basos (auto) (0-0.2) 10^3/ul Absolute Nucleated RBC 10^3/ul Nucleated RBC % INR (Anticoag Therapy) (0.77-1.02) APTT (26.0-36.3) seconds Sodium 139 (139-145) mmol/L Potassium 4.2 (3.5-5.0) mmol/L Chloride 107 (101-111) mmol/L Carbon Dioxide 30 (22-32) mmol/L Anion Gap 2 (2-11) mmol/L BUN 20 (6-24) mg/dL Creatinine 0.87 (0.51-0.95) mg/dL Est GFR ( Amer) 81.6 (>60) Est GFR (Non-Af Amer) 63.5 (>60) BUN/Creatinine Ratio 23.0 H (8-20) Glucose 182 H (70-100) mg/dL Lactic Acid 1.1 (0.5-2.0) mmol/L Calcium 9.0 (8.6-10.3) mg/dL Total Bilirubin 0.40 (0.2-1.0) mg/dL AST 32 (13-39) U/L ALT 21 (7-52) U/L Alkaline Phosphatase 101 (34-104) U/L Troponin I 0.01 (<0.04) ng/mL B-Natriuretic Peptide ( - 100) pg/mL Total Protein 6.9 (6.4-8.9) g/dL Albumin 3.2 (3.2-5.2) g/dL Globulin 3.7 (2-4) g/dL Albumin/Globulin Ratio 0.9 L (1-3) TSH 5.65 H (0.34-5.60) mcIU/mL Result Diagrams: 08/18/17 21:46 08/18/17 21:46 Lab Statement: Any lab studies that have been ordered have been reviewed, and results considered in the medical decision making process. - Radiology CXR Radiology Interpretation Completed By: ED Physician - CXR reveals, per ED physician, no acute findings. No change from previous. - EKG 2100 Cardiac Rate: NL EKG Rhythm: Sinus Rhythm - [address] Segment: Non-Specific EKG Interpretation: Poor R wave progression. Q waves inferior. LBBB. Left axis deviation Chest Pain Course/Dx - Course Course Of Treatment: Patient with history of significant anxiety today presents with chest pain, substernal. She has multiple risk factors including diabetes, known coronary artery disease status post bypass, hypertension and dyslipidemia. She'll require observation and further evaluation/treatment following first troponin and EKG. - Chest Pain Differential Diagnosis/HQI/PQRI: Acute DE, ACS, Angina, CHF, Chest Wall, GI Disease, Lower Respiratory Infection, Pulmonary Edema - Diagnoses Provider Diagnoses: Chest pain at rest, ACS (acute coronary syndrome), Anxiety - Provider Notifications Discussed Care Of Patient With: Frank Tejada Time Discussed With Above Provider: 22:35 Instructed by Provider To: Other - Consult with Dr. Tejada (hospitalist) at 2235. He agrees to admit pt for further evaluation. Discharge - Sign-Out/Discharge Documenting (check all that apply): Discharge/Admit/Transfer - Admit - Discharge Plan Condition: Fair Disposition: ADMITTED TO [facility] - Billing Disposition and Condition Condition: FAIR Disposition: HOSP-[facility] [place] The documentation as recorded by the Blanche kim Emily accurately reflects the service I personally performed and the decisions made by , Daniel Leach MD.
[2017-08-19] MEDS ORDERED: Omeprazole CAP* 20 MG PO SCH ×2 (06:00→09:00)
[2017-08-19] MEDS: Fondaparinux* 7.5 MG/0.6 ML SYRINGE SUBCUT SCH (09:01)
[2017-08-19] MEDS: Docusate CAP* 100 MG PO SCH ×2 (09:02→21:43)
[2017-08-19] MEDS: Magnesium Oxide TAB* 400 MG PO SCH ×2 (09:02→21:45)
[2017-08-19] MEDS: Sertraline* 50 MG TAB PO SCH (09:02)
[2017-08-19] MEDS: Furosemide TAB* 40 MG PO SCH (09:02)
[2017-08-19] MEDS: Potassium Chlor TAB* 20 MEQ TAB.ER PO SCH ×3 (09:02→21:46)
[2017-08-19] MEDS: Hyoscyamine TAB* 0.125 MG PO SCH ×3 (09:02→22:20)
[2017-08-19] MEDS: Insulin GLARGINE(*) 1 UNITS UNIT SUBCUT SCH (09:02)
[2017-08-19] MEDS: Metoprolol Tartrate TAB* 50 mg PO SCH ×2 (09:02→21:46)
[2017-08-19] MEDS: Clopidogrel TAB* 75 MG PO SCH (09:02)
[2017-08-19] MEDS: Aspirin EC TAB* 81 MG TAB.EC PO SCH (09:02)
[2017-08-19] MEDS: CMCS: Pantoprazole TAB (NF) 40 MG TAB PO SCH (09:03)
--- NOTE | 2017-08-19 09:52 | RAD ---
Indication: Chest pain. Arrhythmia. Shortness of breath. Comparison: April 16, 2017 CT abdomen. April 16, 2017 chest radiograph. Technique: Upright AP 2155 hours Report: Unchanged moderate elevation of the RIGHT hemidiaphragm. Mild prominence of the interstitial markings with subtle peripheral thickened interlobular septa. Negative for pleural effusion or pneumothorax. 2 RIGHT ventricular level pacemaker leads are grossly unchanged. Median sternotomy wires and mediastinal vascular clips. Mild cardiomegaly. Mildly prominent and ill-defined central pulmonary vasculature. Gallbladder fossa level surgical clips. IMPRESSION: Mild pulmonary vascular congestion and interstitial edema without significant change.
--- NOTE | 2017-08-19 10:54 | PN ---
Subjective Date of Service: 08/19/17 Interval History: Ms. Collins denies any complaint today including chest pain. She has been chest pain free since arrival. Objective Active Medications: Acetaminophen (Tylenol Tab*) 650 mg PO Q6H PRN Albuterol (Ventolin 2.5 Mg/3 Ml Neb.[place]*) 2.5 mg INH Q2H PRN Aspirin (Aspirin Ec Tab*) 81 mg PO DAILY ELIAS Atorvastatin Calcium (Lipitor*) 80 mg PO BEDTIME ELIAS Clopidogrel Bisulfate (Plavix Tab*) 75 mg PO DAILY ELIAS Docusate Sodium (Colace Cap*) 200 mg PO BID ELIAS Fondaparinux (Arixtra*) 7.5 mg SUBCUT DAILY ELIAS Furosemide (Lasix Tab*) 80 mg PO QAM ELIAS Hyoscyamine (Anaspaz Tab*) 0.125 mg PO TID ELIAS Sodium Chloride (Ns 0.9% 1000 Ml*) 1,000 mls @ 50 mls/hr IV PER RATE ELIAS Insulin Glargine (Lantus(*)) 30 units SUBCUT QAM ELIAS Insulin Glargine (Lantus(*)) 27 units SUBCUT BEDTIME ELIAS Magnesium Oxide (Magox 400 Tab*) 400 mg PO BID ELIAS Melatonin (Melatonin (Nf)) 3 mg PO BEDTIME PRN; Protocol Metoprolol Tartrate (Lopressor Tab*) 50 mg PO BID ELIAS Morphine Sulfate (Morphine Inj (Syringe)*) 2 mg IV Q4H PRN Ondansetron HCl (Zofran Odt Tab*) 4 mg PO Q6H PRN Pantoprazole Sodium (Protonix Tab (Nf)) 80 mg PO DAILY [facility] Potassium Chloride (Klor Con Er Tab*) 40 meq PO TID ELIAS Sertraline HCl (Zoloft*) 50 mg PO DAILY [facility] Vital Signs: Temp Pulse Resp BP Pulse Ox 98.0 F 66 18 139/52 98 08/19/17 07:30 08/19/17 07:30 08/19/17 09:02 08/19/17 07:30 08/19/17 07:30 Oxygen Devices in Use Now: None Appearance: Female lying in bed in NAD Eyes: No Scleral Icterus Ears/Nose/Mouth/Throat: Mucous Membranes Moist Neck: Trachea Midline Respiratory: Symmetrical Chest Expansion and Respiratory Effort, Clear to Auscultation Cardiovascular: NL Sounds; No Murmurs; No JVD, No Edema Abdominal: NL Sounds; No Tenderness; No Distention Extremities: No Edema Skin: No Rash or Ulcers Neurological: Alert and Oriented x 3, NL Muscle Strength and Tone Nutrition: Taking PO's Result Diagrams: 08/18/17 21:46 08/18/17 21:46 Additional Lab and Data: . Assess/Plan/Problems-Billing Assessment: Ms. Collins is a 76 yo female with a PMH of CAD with CABG and stent in April 2017, ischemic cardiomyopathy with EF 40-45%, and DM who was admitted on with chest pain. - Patient Problems (1) Chest pain Comment: - Trops negative. EKG with LBBB, unchanged. - Stress test planned for AM. (2) Afib Comment: - Now in NSR. - Continue metoprolol - Continue arixtra. (3) CAD (coronary artery disease) Comment: - Continue ASA, plavix, metoprolol, lipitor and arixtra. (4) HTN (hypertension) Comment: - BP is under good control. - Continue current medication regimen. (5) Type II diabetes mellitus Comment: - BG well controlled. - Continue lantus with SSI coverage for meals. (6) History of ischemic cardiomyopathy Comment: - Pt appears euvolemic. - Continue lasix and supplemental K and Mg. EF on RAYNA 04/22/17 shows a stable EF from prior echo. (7) Hx of deep venous thrombosis Comment: - Continue arixtra. (8) Hx of ventricular tachycardia Comment: - Has ICD. (9) DVT prophylaxis Comment: - Arixtra. (10) Full code status Comment: Status and Disposition: OBV. Plan for stress test in AM
[2017-08-19] MEDS ORDERED: Insulin GLARGINE(*) 1 UNITS UNIT SUBCUT SCH (21:00)
[2017-08-19] MEDS ORDERED: Atorvastatin* 80 MG TAB PO SCH (21:00)
[2017-08-20] MEDS ORDERED: Regadenoson* 0.4 MG/5 ML SYRINGE ONE (07:44)
--- NOTE | 2017-08-20 09:26 | PN ---
Subjective Date of Service: 08/20/17 Interval History: Ms. Collins states that she is feeling well. She has had no further chest pain since arrival. She is ambulating in her room without difficulty and tolerating oral intake well. Objective Active Medications: Acetaminophen (Tylenol Tab*) 650 mg PO Q6H PRN Albuterol (Ventolin 2.5 Mg/3 Ml Neb.Tawana*) 2.5 mg INH Q2H PRN Aspirin (Aspirin Ec Tab*) 81 mg PO DAILY ELIAS Atorvastatin Calcium (Lipitor*) 80 mg PO BEDTIME ELIAS Clopidogrel Bisulfate (Plavix Tab*) 75 mg PO DAILY ELIAS Docusate Sodium (Colace Cap*) 200 mg PO BID ELIAS Fondaparinux (Arixtra*) 7.5 mg SUBCUT DAILY ELIAS Furosemide (Lasix Tab*) 80 mg PO QAM ELIAS Hyoscyamine (Anaspaz Tab*) 0.125 mg PO TID ELIAS Insulin Glargine (Lantus(*)) 30 units SUBCUT QAM ELIAS Insulin Glargine (Lantus(*)) 27 units SUBCUT BEDTIME ELIAS Magnesium Oxide (Magox 400 Tab*) 400 mg PO BID ELIAS Melatonin (Melatonin (Nf)) 3 mg PO BEDTIME PRN; Protocol Metoprolol Tartrate (Lopressor Tab*) 50 mg PO BID ELIAS Morphine Sulfate (Morphine Inj (Syringe)*) 2 mg IV Q4H PRN Ondansetron HCl (Zofran Odt Tab*) 4 mg PO Q6H PRN Pantoprazole Sodium (Protonix Tab (Nf)) 80 mg PO DAILY [facility] Potassium Chloride (Klor Con Er Tab*) 40 meq PO TID ELIAS Sertraline HCl (Zoloft*) 50 mg PO DAILY [facility] Vital Signs: Temp Pulse Resp BP Pulse Ox 97.7 F 65 14 134/59 100 08/20/17 03:21 08/20/17 08:30 08/20/17 08:30 08/20/17 08:30 08/20/17 08:30 Oxygen Devices in Use Now: None Appearance: Female sitting up in chair in NAD Eyes: No Scleral Icterus Ears/Nose/Mouth/Throat: Mucous Membranes Moist Neck: Trachea Midline Respiratory: Symmetrical Chest Expansion and Respiratory Effort, Clear to Auscultation Cardiovascular: NL Sounds; No Murmurs; No JVD, No Edema Abdominal: NL Sounds; No Tenderness; No Distention Lymphatic: No Cervical Adenopathy Extremities: No Edema Skin: No Rash or Ulcers Neurological: Alert and Oriented x 3, NL Muscle Strength and Tone Nutrition: Taking PO's Result Diagrams: 08/18/17 21:46 08/18/17 21:46 Additional Lab and Data: . Assess/Plan/Problems-Billing Assessment: Ms. Collins is a 76 yo female with a PMH of CAD with CABG and stent in April 2017, ischemic cardiomyopathy with EF 40-45%, and DM who was admitted on with chest pain. - Patient Problems (1) Chest pain Comment: - Trops negative. EKG with LBBB, unchanged. - Stress test is unchanged from previous, reviewed by radiology and Dr. Justin. - Plan for follow up outpatient with Dr. Barba. (2) Afib Comment: - Now in NSR. - Continue metoprolol - Continue arixtra. (3) CAD (coronary artery disease) Comment: - Continue ASA, plavix, metoprolol, lipitor and arixtra. (4) HTN (hypertension) Comment: - BP is under good control. - Continue current medication regimen. (5) Type II diabetes mellitus Comment: - BG well controlled. - Resume home lantus. (6) History of ischemic cardiomyopathy Comment: - Pt appears euvolemic. - Continue lasix and supplemental K and Mg. EF on RAYNA 04/22/17 shows a stable EF from prior echo. (7) Hx of deep venous thrombosis Comment: - Continue arixtra. (8) Hx of ventricular tachycardia Comment: - Has ICD. (9) DVT prophylaxis Comment: - Arixtra. (10) Full code status Comment: Status and Disposition: OBV. Discharge to home.
[2017-08-20] MEDS: Aspirin EC TAB* 81 MG TAB.EC PO SCH (09:38)
[2017-08-20] MEDS: Hyoscyamine TAB* 0.125 MG PO SCH ×2 (09:39→14:53)
[2017-08-20] MEDS: Docusate CAP* 100 MG PO SCH (09:40)
[2017-08-20] MEDS: Clopidogrel TAB* 75 MG PO SCH (09:40)
[2017-08-20] MEDS: CMCS: Pantoprazole TAB (NF) 40 MG TAB PO SCH (09:41)
[2017-08-20] MEDS: Furosemide TAB* 40 MG PO SCH (09:42)
[2017-08-20] MEDS: Magnesium Oxide TAB* 400 MG PO SCH (09:43)
[2017-08-20] MEDS: Fondaparinux* 7.5 MG/0.6 ML SYRINGE SUBCUT SCH (09:45)
[2017-08-20] MEDS: Sertraline* 50 MG TAB PO SCH (11:01)
--- NOTE | 2017-08-20 11:24 | ECHO ---
Patient: JERSON MADRIGAL [facility] Rec#: [id number] : 1940 Date: 08/20/2017 Age: 76y Height: 165.1 cm / 65.0 in Weight: 86.18 kg / 189.9 lbs Sex: F BSA: 1.94 Room#: [facility] Admit Date#: 08/19/2017 Type: Inpatient Referring: Zoe Avila NP Reading: Vinicio Justin MD Air Conditioning Specialist: Mellissa Chan RDCS CC: Daryl Ashford MD Transthoracic Echocardiogram Indication: Chest Pain BP: 117/53 HR: 64 Rhythm: Paced Findings History: CAD with CABG '99, VT, ischemic cardiomyopathy, PAD, DM, DVT in past, HTN, hypothyroid, s/p AICD, former smoker. Technical Comments: The study quality is fair. Completed at 0945. Left Ventricle: The left ventricular chamber size is normal. Mild concentric left ventricular hypertrophy is observed. There is global hypokinesis of the left ventricle with minor regional variation. There is mildly decreased left ventricular systolic function. The estimated ejection fraction is 45-50%. There is a left ventricular septal wall motion abnormality observed, possibly due to the presence of a left bundle branch block. The assessment of diastolic function is non-diagnostic. Left Atrium: The left atrium is severely dilated. Right Ventricle: Moderator Band present. The right ventricle is mildly dilated. The right ventricular global systolic function is low normal. A pacemaker wire is visualized in the right ventricle. Right Atrium: The right atrial cavity size is normal. A pacemaker wire is visualized in the right atrium. Aortic Valve: The aortic valve is trileaflet. The aortic valve leaflets are mildly thickened. There is evidence of aortic sclerosis without stenosis. There is a trace of aortic regurgitation. There is no evidence of aortic stenosis. Mitral Valve: There is mitral annular calcification. The mitral valve leaflets are mildly thickened. There is mild mitral regurgitation. There is no evidence of mitral stenosis. Tricuspid Valve: The tricuspid valve leaflets are normal. There is mild to moderate tricuspid regurgitation. The right ventricular systolic pressure is estimated at 39 mmHg. There is evidence of mild pulmonary hypertension. There is no tricuspid stenosis. Pulmonic Valve: The pulmonic valve appears normal. There is a trace pulmonic regurgitation. There is no pulmonic stenosis. Pericardium: There is no significant pericardial effusion. Aorta: There is no dilatation of the ascending aorta. There is no dilatation of the aortic arch. The aortic root is normal in size. Pulmonary Artery: The main pulmonary artery appears normal. Venous: The venous system is not well visualized. The inferior vena cava is not visualized. Conclusions Mild concentric left ventricular hypertrophy is observed. There is global hypokinesis of the left ventricle with minor regional variation. There is mildly decreased left ventricular systolic function. The estimated ejection fraction is 45-50%. There is a left ventricular septal wall motion abnormality observed, possibly due to the presence of a left bundle branch block. The right ventricular global systolic function is low normal. A pacemaker wire is visualized in the right ventricle. There is evidence of aortic sclerosis without stenosis. There is a trace of aortic regurgitation. There is mild mitral regurgitation. There is mild to moderate tricuspid regurgitation. There is evidence of mild pulmonary hypertension. There is no significant pericardial effusion. Compared to study of 08/02/10, the LV function is now mildly redcued Valve function is the same Measurements Name Value Normal Range RVIDd (AP) 2D 3.1 cm (0.9 - 2.6) RVDdMajor (2D) 4.7 cm (2.2 - 4.4) RAd ISD 4CH 4.6 cm (3.4 - 4.9) RA (A4C)W 3.9 cm (2.9 - 4.6) IVSd (2D) 1.1 cm (0.6 - 1) LVPWd (2D) 1.1 cm (0.6 - 1) LVIDd (2D) 5.4 cm (3.6 - 5.4) LVIDs (2D) 4.3 cm - LV FS (2D) 20 % (25 - 45) Aortic Annulus 1.9 cm (1.4 - 2.6) Ao root diameter (2D) 2.9 cm (2.1 - 3.5) Ascending Ao 2.7 cm (2.1 - 3.4) Aortic arch 2.5 cm (1.8 - 3.4) LA dimension (AP) 2D 4.8 cm (2.3 - 3.8) LAd ISD 4CH 5.4 cm (2.9 - 5.3) LA ISD 4CH W 4.9 cm (2.5 - 4.5) Name Value Normal Range LA ESV SP 4CH (A/L) 92 ml - LA ESV SP 2CH (A/L) 124 ml - LA ESV BP (A/L) 115 ml - LA ESV BP (A/L) index 59 ml/m2 - LA ESV SP 4CH (MOD) 88 ml - LA ESV SP 2CH (MOD) 119 ml - Name Value Normal Range MV E-wave Vmax 1.12 m/sec - MV deceleration time 159.5 msec - MV A-wave Vmax 1.1 m/sec - MV E:A ratio 1.01 ratio - LV septal e' Vmax 0.05 m/sec - LV lateral e' Vmax 0.08 m/sec - LV E:e' septal ratio 22.4 ratio - LV E:e' lateral ratio 14 ratio - Name Value Normal Range AV Vmax 1.27 m/sec - AV VTI 33.9 cm - AV peak gradient 6.47 mmHg - AV mean gradient 3.81 mmHg - LVOT Vmax 0.98 m/sec - LVOT VTI 24.21 cm - LVOT peak gradient 3.9 mmHg - LVOT mean gradient 1.77 mmHg - LENCHO Vmax 1.11 m/sec - Name Value Normal Range TR Vmax 2.8 m/sec - TR peak gradient 31 mmHg - RAP 8 mmHg - RVSP 39 mmHg - Name Value Normal Range PV Vmax 0.95 m/sec - PV peak gradient 3.61 mmHg -
[2017-08-20] MEDS: Potassium Chlor TAB* 20 MEQ TAB.ER PO SCH ×2 (13:57→14:25)
[2017-08-20] MEDS: Insulin GLARGINE(*) 1 UNITS UNIT SUBCUT SCH (13:57)
[2017-08-20] MEDS: Metoprolol Tartrate TAB* 50 mg PO SCH (13:57)
--- NOTE | 2017-08-20 13:57 | RAD ---
HISTORY: Chest pain, shortness of breath, rapid is, hypertension, left bundle-branch block COMPARISONS: April 24, 2017 TECHNIQUE: A 1 day stress/rest myocardial perfusion study was performed, with pharmacologic stress. The stress portion was monitored by Dr. Cook. Gated SPECT imaging was performed, without CT-based attenuation correction secondary to patient body habitus and claustrophobia. DOSE: Stress: Technetium 99m tetrofosmin, 25.23 millicuries, injected at 12:30 PM on August 20, 2017 Rest: Technetium 99m tetrofosmin, 10.88 millicuries, injected at 6:30 AM on August 20, 2017 Pharmacologic agent: Lexiscan FINDINGS: CARDIAC MONITORING: Abnormal baseline EKG precludes definitive assessment for ischemia EF: 50% TID: 0.83 MOTION: There is septal hypokinesia with mild dyskinesia PERFUSION: Again noted is a moderate-sized perfusion defect of the inferior wall towards the septum. The reversible component has decreased in size, though there is still marginal reversibility. There are small reversible defects of the anterior wall and lateral wall which May BE artifactual. OTHER: None IMPRESSION: AGAIN NOTED IS A MODERATE-SIZED PERFUSION DEFECT OF THE INFERIOR WALL TOWARDS THE SEPTUM SIMILAR TO THE PREVIOUS EXAMINATION. THE REVERSIBLE PORTION HAS DECREASED, THOUGH THERE IS STILL PERSISTENT MARGINAL REVERSIBILITY. ASSESSMENT: INTERMEDIATE RISK. Based on imaging criteria from ACC/AHA 2002. Guideline Update for the Management of Patient's with Chronic Stable Angina, table 23. Noninvasive Risk Stratification. CPT II Codes: 3570F
[2017-08-20 16:06] VITALS: BP 105/48
--- NOTE | 2017-08-20 20:56 | DS ---
CC: Dr. Ashford; Dr. Barba * [facility] MEDICINE DISCHARGE SUMMARY: DATE OF ADMISSION: 08/18/17 DATE OF DISCHARGE: 08/20/17 PRIMARY CARE PHYSICIAN: Dr. Ashford. ATTENDING PHYSICIAN: Dr. Mar * (dictation provided by Zoe Avila NP) PRIMARY DIAGNOSIS: Chest pain. SECONDARY DIAGNOSES: 1. Coronary artery disease with coronary artery bypass graft in 1998. 2. History of stent placement in April 2017. 3. Ventricular tachycardia. 4. Cardiomyopathy with an ejection fraction of 40% to 45%. 5. Peripheral arterial disease, status post right femoral bypass. 6. Type 2 diabetes, insulin dependent. 7. History of right lower extremity deep venous thrombosis. 8. Hypertension. 9. Hypothyroidism. 10. Depression. MEDICATIONS AT THE TIME OF DISCHARGE: Unchanged, they are: 1. Furosemide 80 mg p.o. q.a.m. 2. Fondaparinux 7.5 mg subcutaneously daily. 3. Clopidogrel 75 mg p.o. daily. 4. Calcium carbonate 600 mg p.o. b.i.d. 5. Atorvastatin 80 mg p.o. at bedtime. 6. Aspirin 81 mg p.o. daily. 7. Tylenol 1000 mg p.o. at bedtime. 8. Potassium chloride 40 mEq p.o. t.i.d. 9. Omeprazole 40 mg p.o. daily. 10. Multivitamin with mineral 1 tab p.o. daily. 11. Metoprolol tartrate 50 mg p.o. b.i.d. 12. Magnesium oxide 400 mg p.o. b.i.d. 13. Lactobacillus 1 cap p.o. b.i.d. 14. Lantus insulin 30 units in the a.m. and 27 units at bedtime. 15. Hyoscyamine 0.125 mg p.o. t.i.d. 16. Sertraline 50 mg p.o. daily. HOSPITAL COURSE: Ms. Collins is a 76-year-old female with a past medical history of coronary artery disease with CABG and stent as well as type 2 diabetes, which is insulin dependent, who presented to the hospital on 08/18/17 with concern for chest pain. Please see the dictated H and P from Dr. Frank Tejada for complete details. In brief, the patient reported nonexertional , nonradiating dull chest pain, not associated with shortness of breath and lightheadedness. In the emergency room, she had a troponin, which was 0.01. Her EKG shows a left bundle branch block, which was unchanged from baseline. Ms. Colilns went on to have two additional troponins, both of which were 0.02. She had no further chest pain since admission. She had a transthoracic echocardiogram on 08/19/17, which showed the following "mild concentric left ventricular hypertrophy is observed, there is global hypokinesis of the left ventricle with minor regional variation, estimated ejection fraction is 45% to 50%, there is left ventricular septal wall motion abnormality observed possibly due to the presence of left bundle branch block, the right ventricular global systolic function is low normal, compared to study of 08/02/10, LV function is now mildly reduced, valve function is the same." The patient then went on for a chemical nuclear stress test on 08/20/17, which was read as follows "again noted is a moderate size perfusion defect of the inferior wall towards the septum, similar to the previous examination, the reversible portion has decreased, though there is still persistent marginal reversibility, intermediate risk." This study was reviewed by Dr. Justin who agreed. Ms. Collins is medically stable for discharge to home. Her workup has been negative. She does have an appointment to follow up with Dr. Barba in the next month and I told her to make sure she keeps that appointment. She should also follow up with Dr. Ashford in the next week. DISPOSITION: Home. DIET: Heart healthy, low carb. ACTIVITY: As tolerated. FOLLOWUP PLANS: 1. Please follow up with Dr. Barba as scheduled. 2. Please follow up with Dr. Ashford in the next week. TIME SPENT: Approximately 60 minutes was spent in the discharge of this patient , more than half the time was spent with the patient at the bedside reviewing the events leading up to this hospitalization, performing the physical examination, and reviewing my plan of care. ZOE AVILA, [place] [id number]/[facility] #: [id number] JEANETH
== END 2017-08-20 18:25 | disposition home or self-care (01) ==
LOC: ED 20:27 → MEDTELE 22:55
PROVIDERS: ADMIT Hospitalist; ATTEND Student in an Organized Health Care Education/Training Program
DX: R07.9 Chest pain, unspecified (principal); I25.10 Atherosclerotic heart disease of native coronary artery without angina pectoris; I47.2 Ventricular tachycardia; I48.91 Unspecified atrial fibrillation; Z95.5 Presence of coronary angioplasty implant and graft; I10 Essential (primary) hypertension; I24.9 Acute ischemic heart disease, unspecified; R06.02 Shortness of breath; Z79.01 Long term (current) use of anticoagulants; R42 Dizziness and giddiness; Z87.891 Personal history of nicotine dependence; F41.9 Anxiety disorder, unspecified; I42.9 Cardiomyopathy, unspecified; I73.9 Peripheral vascular disease, unspecified; E11.9 Type 2 diabetes mellitus without complications; Z79.4 Long term (current) use of insulin; Z86.718 Personal history of other venous thrombosis and embolism
CPT/HCPCS: 36415; 71045; 78452; 80053; 81003; 81015; 83605; 83880; 84443; 84484; 85025; 85610; 85730; 87077; 87086; 87186; 93005; 93017; 93306; 96360; 96361; 99284; A9270-GY; A9502; G0378; J2785

== ENCOUNTER 2017-10-07 20:05 | Inpatient (IN) | payer MEDICARE, BC ==
[2017-10-07] MEDS ORDERED: NS 0.9% 1000 ML* 1,000 ML IV ONE (20:39)
[2017-10-07] MEDS ORDERED: Ketorolac INJ* 30 MG/ML 1 ML VIAL IV PUSH ONE (20:39)
[2017-10-07] MEDS ORDERED: Metoclopramide IV* 5 MG/ML 2 ML VIAL IV ONE (20:49)
[2017-10-07] MEDS ORDERED: diPHENhydraMINE IV* 50 MG/ML 1 ml VIAL (BENADRYL) IV ONE (20:49)
[2017-10-07 20:54] LABS: Urine Appearance Clear; Urine Blood Negative (Negative); Urine Color Yellow; Urine Ketones Negative (Negative); Urine Protein Negative (Negative); Urine Specific Gravity 1.011 (1.010-1.030); Urine Urobilinogen Negative (Negative)
--- NOTE | 2017-10-07 21:45 | RAD ---
HISTORY: fever COMPARISONS: August 18, 2017 VIEWS: 2: Frontal and lateral views of the chest. FINDINGS: CARDIOMEDIASTINAL SILHOUETTE: The cardiomediastinal silhouette is normal. REMA: The rema are normal. PLEURA: There is elevation of the right hemidiaphragm. LUNG PARENCHYMA: There is patchy alveolar opacification of the left lung base. ABDOMEN: The upper abdomen is clear. There is no subphrenic gas. BONES AND SOFT TISSUES: The patient is status post median sternotomy. OTHER: An AICD pacemaker is noted. IMPRESSION: 1. ELEVATION OF THE RIGHT HEMIDIAPHRAGM CONSISTENT WITH DIAPHRAGMATIC PARALYSIS. 2. PATCHY AIRSPACE DISEASE OF THE LEFT LUNG BASE. RECOMMEND FOLLOW-UP UNTIL RESOLUTION TO EXCLUDE UNDERLYING PULMONARY PARENCHYMAL PATHOLOGY.
[2017-10-07] MEDS ORDERED: Levofloxacin 750 MG IVPREMIX(* 750 MG/150 ML BAG IVPB ONE (21:47)
[2017-10-07 21:49] LABS: ABS Basophils 0.1 10^3/ul (0-0.2); ABS Eosinophils 0 10^3/ul (0-0.6); ABS Lymphocytes 0.2 10^3/ul (1.0-4.8); ABS Monocytes 0.1 10^3/ul (0-0.8); ABS Neutrophils 8.7 10^3/ul (1.5-7.7); ABS Nucleated RBC 0 10^3/ul; Eosinophil % 0.3 % (0-6); Hematocrit 34 % (35-47); Lymphocyte % 2.4 % (25-47); Mean Corpuscular HGB Conc 33 g/dl (31-36); Mean Corpuscular Hemoglobin 29 pg (27-31); Mean Corpuscular Volume 89 fL (80-97); Mean Platelet Volume 7.9 um3 (7.4-10.4); Nucleated Red Blood Cells % 0; Platelet Count 116 10^3/ul (150-450); Red Blood Count 3.78 10^6/ul (4.00-5.40); Red Cell Distribution Width 16 % (10.5-15); White Blood Count 9.1 10^3/ul (3.5-10.8)
[2017-10-07 21:57] LABS: INR 1.08 (0.77-1.02)
[2017-10-07 22:07] LABS: EGFR Non-African American 73.1 (>60)
--- NOTE | 2017-10-07 23:36 | ED ---
Catherine Moise Gabriel, scribed for Danile Leach MD on 10/07/17 at 2053 . HPI Febrile Illness - HPI Summary HPI Summary: This patient is a 76 year old F BIBA to [facility] accompanied by her with a chief complaint of a fever of 102 F that began at 1830 tonight. The patient rates the pain 0/10 in severity. Patient reports general malaise, chills, weakness, cough, nausea, vomiting, and myalgia. Patient denies urinary sx, CP, and ABD pain. Pt has had recent infection that she is unsure of where it is was but she knows it was not in her heart. Hx DM - History of Current Complaint Chief Complaint: EDFever Time Seen by Provider: 10/07/17 20:36 Hx Obtained From: Patient Hx Last Menstrual Period: N/A Onset/Duration: Started Hours Ago, Still Present Timing: Constant Temperature: 102 F Initial Severity: Moderate Current Severity: Moderate Pain Intensity: 0 Pain Scale Used: 0-10 Numeric Associated Signs and Symptoms: Chills, Cough - Additional Pertinent History Primary Care Physician: [id number] - Allergy/Home Medications Allergies/Adverse Reactions: Allergies Allergy/AdvReac Type Severity Reaction Status Date / Time rivaroxaban [From Xarelto] Allergy Bleeding Verified 08/18/17 20:43 PMH/Surg Hx/FS Hx/Imm Hx Endocrine/Hematology History: Reports: Hx Anticoagulant Therapy - arixtra, Hx Diabetes Denies: Hx Thyroid Disease Cardiovascular History: Reports: Hx Angina, Hx Auto Implanted Cardiovert Defib, Hx Cardiac Arrest, Hx Coronary Artery Disease, Hx Deep Vein Thrombosis, Hx Hypercholesterolemia, Hx Hypertension, Hx Pacemaker/ICD, Hx Peripheral Vascular Disease, Other Cardiovascular Problems/Disorders - VT with VF ICD going off Denies: Hx Congestive Heart Failure Respiratory History: Denies: Other Respiratory Problems/Disorders GI History: Reports: Hx Gastrointestinal Bleed History: Reports: Hx Kidney Stones - IN THE PAST Denies: Hx Renal Disease Musculoskeletal History: Reports: Hx Arthritis Sensory History: Reports: Hx Cataracts, Hx Contacts or Glasses - Glasses, Hx Hearing Problem - Bilateral hearing loss Denies: Hx Hearing Aid - Pt states that she used to have hearing aides but they broke and she doesn' Opthamlomology History: Reports: Hx Cataracts, Hx Contacts or Glasses - Glasses Neurological History: Denies: Hx Dementia, Hx Developmental Delay, Hx Headaches Psychiatric History: Reports: Hx Anxiety, Hx Depression - Cancer History Hx Chemotherapy: No Hx Radiation Therapy: No - Surgical History Surgery Procedure, Year, and Place: pacer;. [id number];. right leg bypass;. c section;. 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 Negative: Abdominal Pain Positive: Myalgia All Other Systems Reviewed And Are Negative: Yes Physical Exam - Summary Physical Exam Summary: Appearance: Pt is anxious and is repeatedly moaning, ill appearing Skin: reflects adequate perfusion, stasis dermatitis in LEs, small wound without drainage on the medial aspect of the distal right leg. Skin is hot to touch Head/face: normal Eyes: EOMI, RACHELLE ENT: normal Neck: supple, non-tender Respiratory: CTA, breath sounds present Cardiovascular: RRR, pulses symmetrical Abdomen: non-tender, soft Bowel Sounds: present Musculoskeletal: strength/ROM intact, no significant edema Neuro: normal, sensory motor intact, A&Ox3 Triage Information Reviewed: Yes Vital Signs On Initial Exam: Initial Vitals Temp Pulse Resp BP Pulse Ox 101 F 98 18 117/57 98 10/07/17 20:13 10/07/17 20:13 10/07/17 20:13 10/07/17 20:13 10/07/17 20:13 Vital Signs Reviewed: Yes Diagnostics - Vital Signs Vital Signs Temp Pulse Resp BP Pulse Ox 10/07/17 20:13 101 F 98 18 117/57 98 - Laboratory Lab Results: Lab Results 10/07/17 10/07/17 10/07/17 Range/Units 20:45 21:39 21:39 WBC 9.1 (3.5-10.8) 10^3/ul RBC 3.78 L (4.00-5.40) 10^6/ul Hgb 11.0 L (12.0-16.0) g/dl Hct 34 L (35-47) % MCV 89 (80-97) fL MCH 29 (27-31) pg MCHC 33 (31-36) g/dl RDW 16 H (10.5-15) % Plt Count 116 L (150-450) 10^3/ul MPV 7.9 (7.4-10.4) um3 Neut % (Auto) 95.5 H (38-83) % Lymph % (Auto) 2.4 L (25-47) % [place] % (Auto) 0.9 (0-7) % Eos % (Auto) 0.3 (0-6) % Baso % (Auto) 0.9 (0-2) % Absolute Neuts (auto) 8.7 H (1.5-7.7) 10^3/ul Absolute Lymphs (auto) 0.2 L (1.0-4.8) 10^3/ul Absolute Monos (auto) 0.1 (0-0.8) 10^3/ul Absolute Eos (auto) 0 (0-0.6) 10^3/ul Absolute Basos (auto) 0.1 (0-0.2) 10^3/ul Absolute Nucleated RBC 0 10^3/ul Nucleated RBC % 0 INR (Anticoag Therapy) 1.08 H (0.77-1.02) APTT 30.5 (26.0-36.3) seconds Sodium (135-145) mmol/L Potassium (3.5-5.0) mmol/L Chloride (101-111) mmol/L Carbon Dioxide (22-32) mmol/L Anion Gap (2-11) mmol/L BUN (6-24) mg/dL Creatinine (0.51-0.95) mg/dL Est GFR ( Amer) (>60) Est GFR (Non-Af Amer) (>60) BUN/Creatinine Ratio (8-20) Glucose (70-100) mg/dL Lactic Acid (0.5-2.0) mmol/L Calcium (8.6-10.3) mg/dL Total Bilirubin (0.2-1.0) mg/dL AST (13-39) U/L ALT (7-52) U/L Alkaline Phosphatase (34-104) U/L Troponin I (<0.04) ng/mL Total Protein (6.4-8.9) g/dL Albumin (3.2-5.2) g/dL Globulin (2-4) g/dL Albumin/Globulin Ratio (1-3) Urine Color Yellow Urine Appearance Clear Urine pH 6.0 (5-9) Ur Specific [place] 1.011 (1.010-1.030) Urine Protein Negative (Negative) Urine Ketones Negative (Negative) Urine Blood Negative (Negative) Urine Nitrate Negative (Negative) Urine Bilirubin Negative (Negative) Urine Urobilinogen Negative (Negative) Ur Leukocyte Esterase Negative (Negative) Urine Glucose Negative (Negative) 10/07/17 10/07/17 Range/Units 21:39 21:39 WBC (3.5-10.8) 10^3/ul RBC (4.00-5.40) 10^6/ul Hgb (12.0-16.0) g/dl Hct (35-47) % MCV (80-97) fL MCH (27-31) pg MCHC (31-36) g/dl RDW (10.5-15) % Plt Count (150-450) 10^3/ul MPV (7.4-10.4) um3 Neut % (Auto) (38-83) % Lymph % (Auto) (25-47) % [place] % (Auto) (0-7) % Eos % (Auto) (0-6) % Baso % (Auto) (0-2) % Absolute Neuts (auto) (1.5-7.7) 10^3/ul Absolute Lymphs (auto) (1.0-4.8) 10^3/ul Absolute Monos (auto) (0-0.8) 10^3/ul Absolute Eos (auto) (0-0.6) 10^3/ul Absolute Basos (auto) (0-0.2) 10^3/ul Absolute Nucleated RBC 10^3/ul Nucleated RBC % INR (Anticoag Therapy) (0.77-1.02) APTT (26.0-36.3) seconds Sodium 139 (135-145) mmol/L Potassium 3.5 (3.5-5.0) mmol/L Chloride 107 (101-111) mmol/L Carbon Dioxide 26 (22-32) mmol/L Anion Gap 6 (2-11) mmol/L BUN 21 (6-24) mg/dL Creatinine 0.77 (0.51-0.95) mg/dL Est GFR ( Amer) 94.0 (>60) Est GFR (Non-Af Amer) 73.1 (>60) BUN/Creatinine Ratio 27.3 H (8-20) Glucose 167 H (70-100) mg/dL Lactic Acid 1.3 (0.5-2.0) mmol/L Calcium 8.6 (8.6-10.3) mg/dL Total Bilirubin 0.50 (0.2-1.0) mg/dL AST 29 (13-39) U/L ALT 23 (7-52) U/L Alkaline Phosphatase 124 H (34-104) U/L Troponin I 0.03 (<0.04) ng/mL Total Protein 6.6 (6.4-8.9) g/dL Albumin 3.1 L (3.2-5.2) g/dL Globulin 3.5 (2-4) g/dL Albumin/Globulin Ratio 0.9 L (1-3) Urine Color Urine Appearance Urine pH (5-9) Ur Specific [place] (1.010-1.030) Urine Protein (Negative) Urine Ketones (Negative) Urine Blood (Negative) Urine Nitrate (Negative) Urine Bilirubin (Negative) Urine Urobilinogen (Negative) Ur Leukocyte Esterase (Negative) Urine Glucose (Negative) Result Diagrams: 10/07/17 21:39 10/07/17 21:39 Lab Statement: Any lab studies that have been ordered have been reviewed, and results considered in the medical decision making process. - Radiology CXR Radiology Interpretation Completed By: Radiologist - , 1. ELEVATION OF THE RIGHT HEMIDIAPHRAGM CONSISTENT WITH DIAPHRAGMATIC PARALYSIS. 2. PATCHY AIRSPACE DISEASE OF THE LEFT LUNG BASE. RECOMMEND FOLLOW-UP UNTIL RESOLUTION TO EXCLUDE UNDERLYING PULMONARY PARENCHYMAL PATHOLOGY. ED physician has reviewed this radiology report. - EKG 2056 Cardiac Rate: Tachycardia EKG Rhythm: Sinus Tachycardia - at [address] Segment: Non-Specific EKG Interpretation: LBBB, LAD Course/Dx - Course Course Of Treatment: Original vital signs show the patient has an O2 sat of 80% . This is not accurate. She's had O2 sat on room air greater than 94% throughout her stay. She also has readily palpable radial pulses. She had received 1.5 L of IV fluids prior to arrival. She received an additional 1 L here. She did not have elevated lactate or WBC. There is evidence for pulmonary infiltrate and she was started on Levaquin. She has had bacteremia in the past and required hospital admission for that. She will be admitted through the hospitalist service. - Febrile Illness Differential Diagnoses: Bacteremia, Cellulitis, Encephalitis, Endocarditis, Sepsis, Other: - Pneumonia, UTI - Diagnoses Provider Diagnoses: Vomiting, PNA (pneumonia), Sepsis - Provider Notifications Discussed Care Of Patient With: Frank Tejada Time Discussed With Above Provider: 22:39 Instructed by Provider To: Admit As Inpatient - Critical Care Time Critical Care Time: 30-74 min - CCT is EXCLUSIVE of separately billable procedures. Discharge - Sign-Out/Discharge Documenting (check all that apply): Discharge/Admit/Transfer - Discharge Plan Condition: Fair Disposition: ADMITTED TO [facility] Referrals: Daryl Ashford MD [Primary Care Provider] - - Billing Disposition and Condition Condition: FAIR Disposition: Admitted to [facility] The documentation as recorded by the Catherine kim Gabriel accurately reflects the service I personally performed and the decisions made by , Daniel Leach MD.
[2017-10-08] MEDS ORDERED: Melatonin 3 MG TAB PO PRN (05:39)
[2017-10-08] MEDS ORDERED: Ondansetron ODT TAB* 4 MG PO PRN (05:39)
[2017-10-08] MEDS ORDERED: Albuterol 2.5 MG/3 ML NEB.SOL* (0.083%) INH PRN (05:39)
[2017-10-08] MEDS ORDERED: NS 0.9% 1000 ML* 1,000 ML IV SCH (05:45)
--- NOTE | 2017-10-08 05:49 | HP ---
H&P (Free Text) History and Physical: PCP: Ale Ashford MD Cardiology: Tony Barba MD Date/Time: 09/28/2017 0120 CC: chills & malaise HPI: Mrs Collins is a 76YO female HX CAD s/p cardiac cath with stent placement Apr 2017, 2vCABG, VT, ischemic cardiomyopathy EF 40-45%, PAOD s/p R femoral bypass, DM2 requiring insulin, RLE DVT, & HTN who presents reporting sudden onset ~1800 of chills, nausea, & generalized malaise, but no fever, sweats, diarrhea, chest pain, SOB, congestion, rash, wounds, headache, B/U/F of urine, abdominal pain, or other issues. She denies exacerbating and alleviating factors. PMedHx CAD/2vCABG 1998 ventricular tachycardia ischemic cardiomyopathy EF 40-45% PAOD s/p R femoral bypass DM2, insulin requiring RLE DVT HTN hypothyroidism depression Ambulatory Orders Nursing to reconcile. Atorvastatin* [Lipitor 80 MG*] 80 mg PO BEDTIME 05/04/12 Calcium Carbonate [Calcium] 600 mg PO BID 05/04/12 Furosemide TAB* [Lasix TAB*] 80 mg PO QAM 05/04/12 Metoprolol Tartrate TAB* [Lopressor TAB*] 50 mg PO BID 05/04/12 Multivitamins/Minerals TAB* [Thera M Plus TAB*] 1 tab PO DAILY 05/04/12 Potassium Chlor Tab* [K Dur Tab*] 40 meq PO TID 05/04/12 Acetaminophen [Tylenol Extra Strength] 1,000 mg PO BEDTIME 08/02/13 Omeprazole CAP* [Prilosec CAP* 20 MG] 40 mg PO DAILY 07/10/14 Aspirin EC TAB* [Ecotrin EC Low Dose 81 MG*] 81 mg PO DAILY 05/19/15 Fondaparinux* [Arixtra*] 7.5 mg SUBCUT DAILY 05/19/15 Hyoscyamine TAB* [Anaspaz 0.125 MG TAB*] 0.125 mg PO TID 05/19/15 Insulin Glargine [Lantus Solostar] 30 units SUBCUT QAM 07/23/15 Insulin Glargine,Hum.rec.anlog [Lantus] 27 unit SUBCUT BEDTIME 04/16/17 Lactobacillus Acidophilus [Probiotic] 1 cap PO BID 04/16/17 Clopidogrel TAB* [Plavix TAB*] 75 mg PO DAILY #30 tab 04/27/17 Magnesium Oxide TAB* [MagOx 400 TAB*] 400 mg PO BID #60 tab 04/27/17 Sertraline* [Zoloft*] 50 mg PO DAILY tab 08/20/17 Allergies rivaroxaban [From Xarelto] Allergy (Verified 08/18/17 20:43) Bleeding PSurgHx pacer placement cataract extraction SocHx: former smoker w/ ~15PYHX, denies alcohol & recreational drugs; lives with her ; full code status FamHx: Mother: CAD; Father: DM2; Sister: HTN, HLD ROS: as above, otherwise reviewed and all were negative vitals: Vital Signs Temp 37.4 C 10/08/17 03:01 Pulse 96 10/08/17 03:01 Resp 16 10/08/17 03:01 BP 104/46 10/08/17 03:42 Pulse Ox 100 10/08/17 03:01 Intake & Output 10/07/17 10/07/17 10/08/17 11:59 23:59 11:59 Intake Total 1150 Balance 1150 Weight 88.451 kg 90.718 kg Intake: IV Fluids 1150 Constitutional: NAD, normally developed, obese white female HEENM: atraumatic; sclera/conjunctiva: anicteric/clear; hearing: clinically mildly decreased; oropharynx: clear, mucosa moist Neck: soft tissue: non-tender; thyroid: normal Pulmonary: clear to auscultation bilaterally, good aeration, no accessory muscle use CV: RR/RR, normal S1S2, no carotid bruit, no jugular venous distention, 2+ B DP/ PT, trace BLE edema Abdominal: soft, non-distended, non-tender, no rebound/guarding/rigidity, normoactive bowel sounds, no hepatosplenomegaly or masses, no costovertebral angle tenderness Musculoskeletal: general: grossly intact, no tenderness with palpation Integumental: normal appearance and texture of exposed skin Psychiatric orientation: AA&O to PPS affect: anxious mood: cooperative eye contact: fair content: reliable responses: timely insight: fair Testing: Lab Results 10/07/17 10/07/17 10/07/17 Range/Units 20:45 21:39 21:39 WBC 9.1 (3.5-10.8) 10^3/ul RBC 3.78 L (4.00-5.40) 10^6/ul Hgb 11.0 L (12.0-16.0) g/dl Hct 34 L (35-47) % MCV 89 (80-97) fL MCH 29 (27-31) pg MCHC 33 (31-36) g/dl RDW 16 H (10.5-15) % Plt Count 116 L (150-450) 10^3/ul MPV 7.9 (7.4-10.4) um3 Neut % (Auto) 95.5 H (38-83) % Lymph % (Auto) 2.4 L (25-47) % [place] % (Auto) 0.9 (0-7) % Eos % (Auto) 0.3 (0-6) % Baso % (Auto) 0.9 (0-2) % Absolute Neuts (auto) 8.7 H (1.5-7.7) 10^3/ul Absolute Lymphs (auto) 0.2 L (1.0-4.8) 10^3/ul Absolute Monos (auto) 0.1 (0-0.8) 10^3/ul Absolute Eos (auto) 0 (0-0.6) 10^3/ul Absolute Basos (auto) 0.1 (0-0.2) 10^3/ul Absolute Nucleated RBC 0 10^3/ul Nucleated RBC % 0 INR (Anticoag Therapy) 1.08 H (0.77-1.02) APTT 30.5 (26.0-36.3) seconds Sodium (135-145) mmol/L Potassium (3.5-5.0) mmol/L Chloride (101-111) mmol/L Carbon Dioxide (22-32) mmol/L Anion Gap (2-11) mmol/L BUN (6-24) mg/dL Creatinine (0.51-0.95) mg/dL Est GFR ( Amer) (>60) Est GFR (Non-Af Amer) (>60) BUN/Creatinine Ratio (8-20) Glucose (70-100) mg/dL Lactic Acid (0.5-2.0) mmol/L Calcium (8.6-10.3) mg/dL Total Bilirubin (0.2-1.0) mg/dL AST (13-39) U/L ALT (7-52) U/L Alkaline Phosphatase (34-104) U/L Troponin I (<0.04) ng/mL Total Protein (6.4-8.9) g/dL Albumin (3.2-5.2) g/dL Globulin (2-4) g/dL Albumin/Globulin Ratio (1-3) Urine Color Yellow Urine Appearance Clear Urine pH 6.0 (5-9) Ur Specific [place] 1.011 (1.010-1.030) Urine Protein Negative (Negative) Urine Ketones Negative (Negative) Urine Blood Negative (Negative) Urine Nitrate Negative (Negative) Urine Bilirubin Negative (Negative) Urine Urobilinogen Negative (Negative) Ur Leukocyte Esterase Negative (Negative) Urine Glucose Negative (Negative) 10/07/17 10/07/17 10/08/17 Range/Units 21:39 21:39 00:26 WBC (3.5-10.8) 10^3/ul RBC (4.00-5.40) 10^6/ul Hgb (12.0-16.0) g/dl Hct (35-47) % MCV (80-97) fL MCH (27-31) pg MCHC (31-36) g/dl RDW (10.5-15) % Plt Count (150-450) 10^3/ul MPV (7.4-10.4) um3 Neut % (Auto) (38-83) % Lymph % (Auto) (25-47) % [place] % (Auto) (0-7) % Eos % (Auto) (0-6) % Baso % (Auto) (0-2) % Absolute Neuts (auto) (1.5-7.7) 10^3/ul Absolute Lymphs (auto) (1.0-4.8) 10^3/ul Absolute Monos (auto) (0-0.8) 10^3/ul Absolute Eos (auto) (0-0.6) 10^3/ul Absolute Basos (auto) (0-0.2) 10^3/ul Absolute Nucleated RBC 10^3/ul Nucleated RBC % INR (Anticoag Therapy) (0.77-1.02) APTT (26.0-36.3) seconds Sodium 139 (135-145) mmol/L Potassium 3.5 (3.5-5.0) mmol/L Chloride 107 (101-111) mmol/L Carbon Dioxide 26 (22-32) mmol/L Anion Gap 6 (2-11) mmol/L BUN 21 (6-24) mg/dL Creatinine 0.77 (0.51-0.95) mg/dL Est GFR ( Amer) 94.0 (>60) Est GFR (Non-Af Amer) 73.1 (>60) BUN/Creatinine Ratio 27.3 H (8-20) Glucose 167 H (70-100) mg/dL Lactic Acid 1.3 2.9 H* (0.5-2.0) mmol/L Calcium 8.6 (8.6-10.3) mg/dL Total Bilirubin 0.50 (0.2-1.0) mg/dL AST 29 (13-39) U/L ALT 23 (7-52) U/L Alkaline Phosphatase 124 H (34-104) U/L Troponin I 0.03 (<0.04) ng/mL Total Protein 6.6 (6.4-8.9) g/dL Albumin 3.1 L (3.2-5.2) g/dL Globulin 3.5 (2-4) g/dL Albumin/Globulin Ratio 0.9 L (1-3) Urine Color Urine Appearance Urine pH (5-9) Ur Specific [place] (1.010-1.030) Urine Protein (Negative) Urine Ketones (Negative) Urine Blood (Negative) Urine Nitrate (Negative) Urine Bilirubin (Negative) Urine Urobilinogen (Negative) Ur Leukocyte Esterase (Negative) Urine Glucose (Negative) ECG, personally reviewed: sinus tachycardia LBBB rate 100, no ischemia CXR, personally reviewed: IMPRESSION: 1. ELEVATION OF THE RIGHT HEMIDIAPHRAGM CONSISTENT WITH DIAPHRAGMATIC PARALYSIS. 2. PATCHY AIRSPACE DISEASE OF THE LEFT LUNG BASE. RECOM- MEND FOLLOW-UP UNTIL RESOLUTION TO EXCLUDE UNDERLYING PULMONARY PARENCHYMAL PATHOLOGY. RAYNA (04/22/2017): Conclusions: Mild global hypokinesis of the left ventricle is observed. The estimated ejection fraction is 40-45%. The right ventricular global systolic function is mildly reduced. A pacemaker wire is visualized in the right ventricle and in the right atrium. No vegetations noted on the pacemaker leads. There were late bubbles seen in the left atrium c/w small cardiopulmonary shunt, possible PFO. Aortic valve sclerosis with normal function. There is a trace of mitral regurgitation. A calcific structure is visualized on the subvalvualr apparatus of the mitral valve, possible vegetation vs. sclerosis. Measures 0.3cm by 0.9cm 3 chamber view. There is trace tricuspid regurgitation. There is moderate calcific plaque visualized in the descending aorta. Aortic arch not visualized. Compared with prior echo of , EF is stable, the degree of MR and TR have improved, previously moderate , PA pressure previously 57 mmHg, valvular sclerosis noted on prior study. Cardiac Cath (04/25/2017): OVERALL ASSESSMENT: Significant disease involving the proximal portion of the second obtuse marginal branch with prior stented area with severe in-stent restenosis treated with balloon angioplasty, but unsuccessful in delivering any stent with residual stenosis still present as described above. Successful reduction of critical 95% mid lesion in the mid circumflex with balloon angioplasty and placement of the 3.5 x 16 mm long synergy drug eluting stent dilated at 4.2 mm with high pressure balloon inflations with PAT-3 flow, no dissection seen, and 10% residual stenosis. At this point in time, the patient should be maintained on dual antiplatelet agents for probably 30 months. Medical management for obtuse marginal branch would probably be best at this point in time given the difficulty of delivering any type of stent to this area. The patient will have a wound check with me within 7 to 10 days and follow up with primary hot die picker, Dr. Johanny Barba. Impression: 76F HX CAD/2vCABG/stent, ischemic cardiomyopathy EF 40-45%, PAOD, DM2, RLE DVT, HTN presents with suspected sepsis 2nd LLL pneumonia DIAGNOSIS & PLAN Primary suspect sepsis 2nd LLL pneumonia : IV levofloxacin : IVFs : blood & sputum CXs : urine S pneumo & Legionella antigens : supplemental oxygen : supportive care Secondary HX ventricular tachycardia : no current issues ischemic cardiomyopathy EF 40-45% : continue aspirin, clopidogrel, metoprolol : hold furosemide & KCl for now PAOD s/p R femoral bypass : continue atorvastatin DM2, insulin requiring : update A1c : insulin carb ratio diet : basal/bolus/correctional insulin HX RLE DVT : continue fondaparinux HTN : continue metoprolol depression : continue sertraline GERD : continue omeprazole Admission Rational: observation or r/o ACS DVTp: fondaparinux Code Status: full HCP:
[2017-10-08] MEDS ORDERED: Omeprazole CAP* 20 MG PO SCH (06:00)
[2017-10-08 06:53] LABS: ABS Basophils 0 10^3/ul (0-0.2); ABS Eosinophils 0 10^3/ul (0-0.6); ABS Lymphocytes 0.5 10^3/ul (1.0-4.8); ABS Monocytes 0.6 10^3/ul (0-0.8); ABS Neutrophils 19.6 10^3/ul (1.5-7.7); ABS Nucleated RBC 0 10^3/ul; Eosinophil % 0 % (0-6); Hematocrit 33 % (35-47); Hemoglobin 10.9 g/dl (12.0-16.0); Lymphocyte % 2.3 % (25-47); Mean Corpuscular HGB Conc 33 g/dl (31-36); Mean Corpuscular Hemoglobin 29 pg (27-31); Mean Corpuscular Volume 89 fL (80-97); Mean Platelet Volume 8.6 um3 (7.4-10.4); Nucleated Red Blood Cells % 0; Platelet Count 103 10^3/ul (150-450); Red Blood Count 3.71 10^6/ul (4.00-5.40); Red Cell Distribution Width 16 % (10.5-15); White Blood Count 20.7 10^3/ul (3.5-10.8)
[2017-10-08 07:08] LABS: EGFR Non-African American 62.6 (>60)
[2017-10-08] MEDS: Insulin LISPRO* 1 UNITS UNIT SUBCUT SCH ×7 (08:19→20:53)
[2017-10-08] MEDS: Magnesium Oxide TAB* 400 MG PO SCH ×2 (08:45→20:53)
[2017-10-08] MEDS: Sertraline* 50 MG TAB PO SCH (08:45)
[2017-10-08] MEDS: Clopidogrel TAB* 75 MG PO SCH (08:45)
[2017-10-08] MEDS: Aspirin EC TAB* 81 MG TAB.EC PO SCH (08:45)
[2017-10-08] MEDS: CMCS:Pantoprazole TAB (NF) 40 MG TAB PO SCH (08:45)
[2017-10-08] MEDS: Fondaparinux* 7.5 MG/0.6 ML SYRINGE SUBCUT SCH (08:47)
[2017-10-08] MEDS: Docusate CAP* 100 MG PO SCH ×2 (08:47→20:54)
[2017-10-08] MEDS: Metoprolol Tartrate TAB* 50 mg PO SCH ×2 (08:50→20:47)
[2017-10-08] MEDS ORDERED: Metoprolol Tartrate TAB* 50 mg PO SCH (09:00)
--- NOTE | 2017-10-08 13:04 | CONSULT ---
<Willis Rogers - Last Filed: 10/08/17 12:44> Consult Consult: Infectious Disease Resident Consult Note HPI: 76yo F with pmhx notable for CAD s/p 2v CABG, Hx of VT, ICM EF 40-45% s/p A1CD, PAD s/p right fem bypass, IDDM, RLE DVT, HTN who was admitted yesterday 10/07 with 1d hx of rigors/chills, now found to have GPC bacteremia, ID consulted for management reccomendations. Briefly, patient last presented in 03/2017 with similar presentation found to have GBS (strep aglactaie) bacteremia tx IV ceftriaxone. TTE and RAYNA at that time neg. At that time thought to perhaps be in setting of perineal cellulitis but source remained unclear. Since then, patient with multiple UTIs (VRE, E.coli, Klebs, GBS), and hospitalized 08/18- for CP, AUTUMN neg. Since then was feeling per usual health, yesterday was feeling well, spent day shopping, BBQ and then had dinner at [employer] with family. Following dinner around 6PM sudden onset chills/rigors. No obj fever, no SOB, Cough, URI symptoms, No abd pain, No diarrhea, dysuria, flank pain, no joint pain. No blood or melena in stool. No perirectal pain. No sick contacts, no recent travel. No insect bites. No recent abx. Brought to Hospital by daughter. CXR with LLL consolidation. BCx 07/25 bottles + GPCs c/f strep species. Urine clean. Afebrile, HD stable. Started on IV Levaquin. ID consulted. On my eval, patient comfortable, ROS negative. No reccurrence of rigors/chills since admission. No new complaints. ROS: See Above. 14 point ROS otherwise complete. PMHx:/PSHx: See Above Social Hx: 15 pack year smoking hx, neg etoh, no other illicit drugs, liver with Family Hx: non contributory. Allergies: Xeralto - bleeding Home Medications Atorvastatin* [Lipitor 80 MG*] 80 mg PO BEDTIME 05/04/12 [History Confirmed ] Calcium Carbonate [Calcium] 600 mg PO BID 05/04/12 [History Confirmed 10/07/17] Furosemide TAB* [Lasix TAB*] 80 mg PO QAM 05/04/12 [History Confirmed 10/07/17] Metoprolol Tartrate TAB* [Lopressor TAB*] 50 mg PO BID 05/04/12 [History Confirmed 10/07/17] Multivitamins/Minerals TAB* [Thera M Plus TAB*] 1 tab PO DAILY 05/04/12 [ History Confirmed 10/07/17] Potassium Chlor Tab* [K Dur Tab*] 40 meq PO TID 05/04/12 [History Confirmed ] Acetaminophen [Tylenol Extra Strength] 1,000 mg PO BEDTIME 08/02/13 [History Confirmed 10/07/17] Omeprazole CAP* [Prilosec CAP* 20 MG] 40 mg PO DAILY 07/10/14 [History Confirmed 10/07/17] Aspirin EC TAB* [Ecotrin EC Low Dose 81 MG*] 81 mg PO DAILY 05/19/15 [History Confirmed 10/07/17] Fondaparinux* [Arixtra*] 7.5 mg SUBCUT DAILY 05/19/15 [History Confirmed ] Hyoscyamine TAB* [Anaspaz 0.125 MG TAB*] 0.125 mg PO TID 05/19/15 [History Confirmed 10/07/17] Insulin Glargine [Lantus Solostar] 30 units SUBCUT QAM 07/23/15 [History Confirmed 10/07/17] Insulin Glargine,Hum.rec.anlog [Lantus] 27 unit SUBCUT BEDTIME 04/16/17 [ History Confirmed 10/07/17] Lactobacillus Acidophilus [Probiotic] 1 cap PO BID 04/16/17 [History Confirmed 10/07/17] Clopidogrel TAB* [Plavix TAB*] 75 mg PO DAILY #30 tab 04/27/17 [Rx Confirmed ] Magnesium Oxide TAB* [MagOx 400 TAB*] 400 mg PO BID #60 tab 04/27/17 [Rx Confirmed 10/07/17] Sertraline* [Zoloft*] 50 mg PO DAILY tab 08/20/17 [Rx Confirmed 10/07/17] Inpatient Medications Acetaminophen (Tylenol Tab*) 650 mg PO Q6H PRN PRN Reason: FEVER/PAIN Albuterol (Ventolin 2.5 Mg/3 Ml Neb.Tawana*) 2.5 mg INH Q2H PRN PRN Reason: SOB/WHEEZING Aspirin (Aspirin Ec Tab*) 81 mg PO DAILY [facility] Last Admin: 10/08/17 08:45 Dose: 81 mg Atorvastatin Calcium (Lipitor*) 80 mg PO BEDTIME [facility] Clopidogrel Bisulfate (Plavix Tab*) 75 mg PO DAILY [facility] Last Admin: 10/08/17 08:45 Dose: 75 mg Docusate Sodium (Colace Cap*) 200 mg PO BID [facility] Last Admin: 10/08/17 08:47 Dose: Not Given Fondaparinux (Arixtra*) 7.5 mg SUBCUT DAILY [facility] Last Admin: 10/08/17 08:47 Dose: 7.5 mg Sodium Chloride (Ns 0.9% 1000 Ml*) 1,000 mls @ 100 mls/hr IV PER RATE [facility] Ceftriaxone Sodium 1 gm/ (Sodium Chloride) 50 mls @ 200 mls/hr IVPB Q24H [facility] Insulin Glargine (Lantus(*)) 22 units 0.24 units/kg (22 units) SUBCUT 2100 [facility] Insulin Human Lispro (Humalog*) 0 units SUBCUT AC [facility] PRN Reason: Protocol Last Admin: 10/08/17 08:48 Dose: Not Given Insulin Human Lispro (Humalog*) 0 units SUBCUT ACHS [facility] PRN Reason: Protocol Last Admin: 10/08/17 11:42 Dose: Not Given Magnesium Oxide (Magox 400 Tab*) 400 mg PO BID [facility] Last Admin: 10/08/17 08:45 Dose: 400 mg Melatonin (Melatonin) 3 mg PO BEDTIME PRN; Protocol PRN Reason: Sleep Metoprolol Tartrate (Lopressor Tab*) 50 mg PO BID [facility] Last Admin: 10/08/17 08:50 Dose: Not Given Ondansetron HCl (Zofran Odt Tab*) 4 mg PO Q6H PRN PRN Reason: n/v Pantoprazole Sodium (Protonix Tab (Nf)) 40 mg PO DAILY [facility] Last Admin: 10/08/17 08:45 Dose: 40 mg Sertraline HCl (Zoloft*) 50 mg PO DAILY [facility] Last Admin: 10/08/17 08:45 Dose: 50 mg Vitals: 10/08/17 11:11 Temperature 37.2 C Pulse Rate 81 Respiratory 20 Rate Blood Pressure 96/43 (mmHg) O2 Sat by Pulse 95 Oximetry Physical Exam: NAD/NT CTAB RRR, No murmurs Abd soft, nt, +BS Trace CORNELIO Dry healing ulcer over right foot sole Assesment: 76yo F with pmhx notable for CAD s/p 2v CABG, Hx of VT, ICM EF 40-45% s/p A1CD, PAD s/p right fem bypass, IDDM, RLE DVT, HTN who was admitted yesterday 10/07 with 1d hx of rigors/chills, now found to have GPC bacteremia, ID consulted for management recommendations. Presumed source of bactermia in this case likely the patients community aquired pneumonia. Plan: - F/u on BCx speciation and sens - Daily BCx until clear - Switch to IV ceftriaxone, stop levaquin. Will need to complete 14day course of abx from last neg BCx. - No indications for TTE at this time, however if GBS bacteremia again, would need to repeat cardiac imaging and consider hardware (PPM/AICD) removal. Willis Rogers, PGY3 <Liliana JOHNSTON,Robert Dumont - Last Filed: 10/09/17 13:38> Consult Consult: Seen, examined, discussed with Dr Rogers, I agree with his note above. CC: strep bacteremia Imp/Rec: 1. Strep bacteremia, awaiting speciation ?pneumococcus, continue abx, will change to ceftriaxone and add TTE 2. presence of pacemaker and hx of Grp B Strep bacteremia, treated with 2 weeks ceftriaxone in 2017. 3.IDDM
[2017-10-08] MEDS: cefTRIAXone(*) 1 GM in NS 0.9% 50 ML* 50 ML IVPB SCH (17:30)
[2017-10-08] MEDS: NS 0.9% 1000 ML* 1,000 ML IV SCH (17:32)
[2017-10-08] MEDS: Atorvastatin* 80 MG TAB PO SCH (20:53)
[2017-10-08] MEDS: Insulin GLARGINE(*) 1 UNITS UNIT SUBCUT SCH (20:54)
--- NOTE | 2017-10-08 20:54 | PN ---
Subjective Date of Service: 10/08/17 Interval History: Pt seen and examined. Meds and labs reviewed. ROS: Denied MCGRAW/dizziness, F/C, N/V, CP, SOB, increased cough, sputum production , abd pain, diarrhea, constipation, dysuria, myalgias, arthralgias, throat pain , and new skin lesions. The rest of the 14 point ROS are unremarkable. PHYSICAL EXAM: GEN APPEARANCE: Awake, not in acute distress HEENT: NC/AT, PERRLA, moist oral mucosa, (-) throat erythema NECK: Soft, supple, (-) cervical LAD, (-)JVD HEART: S1S2 WNL, RRR, No MRG CHEST: (+)Bibasal crackles GAE, No W/R/R ABD: Soft, ND/NT, NABS 4x Q EXT: No C/C/(+)1 BLLE edema SKIN: Warm to touch PSYCH: No active psychosis, hallucinations, depression, SI/HI Objective Active Medications: Acetaminophen (Tylenol Tab*) 650 mg PO Q6H PRN PRN Reason: FEVER/PAIN Albuterol (Ventolin 2.5 Mg/3 Ml Neb.Tawana*) 2.5 mg INH Q2H PRN PRN Reason: SOB/WHEEZING Aspirin (Aspirin Ec Tab*) 81 mg PO DAILY [facility] Last Admin: 10/08/17 08:45 Dose: 81 mg Atorvastatin Calcium (Lipitor*) 80 mg PO BEDTIME [facility] Clopidogrel Bisulfate (Plavix Tab*) 75 mg PO DAILY [facility] Last Admin: 10/08/17 08:45 Dose: 75 mg Docusate Sodium (Colace Cap*) 200 mg PO BID [facility] Last Admin: 10/08/17 08:47 Dose: Not Given Fondaparinux (Arixtra*) 7.5 mg SUBCUT DAILY [facility] Last Admin: 10/08/17 08:47 Dose: 7.5 mg Sodium Chloride (Ns 0.9% 1000 Ml*) 1,000 mls @ 100 mls/hr IV PER RATE [facility] Last Admin: 10/08/17 17:32 Dose: 100 mls/hr Ceftriaxone Sodium 1 gm/ (Sodium Chloride) 50 mls @ 200 mls/hr IVPB Q24H [facility] Last Admin: 10/08/17 17:30 Dose: 200 mls/hr Insulin Glargine (Lantus(*)) 22 units 0.24 units/kg (22 units) SUBCUT 2100 [facility] Insulin Human Lispro (Humalog*) 0 units SUBCUT AC [facility] PRN Reason: Protocol Last Admin: 10/08/17 17:32 Dose: 4 units Insulin Human Lispro (Humalog*) 0 units SUBCUT ACHS [facility] PRN Reason: Protocol Last Admin: 10/08/17 17:33 Dose: 3 unit Magnesium Oxide (Magox 400 Tab*) 400 mg PO BID [facility] Last Admin: 10/08/17 08:45 Dose: 400 mg Melatonin (Melatonin) 3 mg PO BEDTIME PRN; Protocol PRN Reason: Sleep Metoprolol Tartrate (Lopressor Tab*) 50 mg PO BID [facility] Last Admin: 10/08/17 20:47 Dose: Not Given Ondansetron HCl (Zofran Odt Tab*) 4 mg PO Q6H PRN PRN Reason: n/v Pantoprazole Sodium (Protonix Tab (Nf)) 40 mg PO DAILY [facility] Last Admin: 10/08/17 08:45 Dose: 40 mg Sertraline HCl (Zoloft*) 50 mg PO DAILY [facility] Last Admin: 10/08/17 08:45 Dose: 50 mg Vital Signs - 8 hr 10/08/17 10/08/17 15:55 19:39 Temperature 98.9 F 98.7 F Pulse Rate 82 84 Respiratory 22 20 Rate Blood Pressure 97/48 97/54 (mmHg) O2 Sat by Pulse 98 97 Oximetry Oxygen Devices in Use Now: None Result Diagrams: 10/08/17 06:32 10/08/17 06:32 Additional Lab and Data: Lab Results 10/07/17 10/07/17 10/07/17 Range/Units 20:45 21:39 21:39 WBC 9.1 (3.5-10.8) 10^3/ul RBC 3.78 L (4.00-5.40) 10^6/ul Hgb 11.0 L (12.0-16.0) g/dl Hct 34 L (35-47) % MCV 89 (80-97) fL MCH 29 (27-31) pg MCHC 33 (31-36) g/dl RDW 16 H (10.5-15) % Plt Count 116 L (150-450) 10^3/ul MPV 7.9 (7.4-10.4) um3 Neut % (Auto) 95.5 H (38-83) % Lymph % (Auto) 2.4 L (25-47) % [place] % (Auto) 0.9 (0-7) % Eos % (Auto) 0.3 (0-6) % Baso % (Auto) 0.9 (0-2) % Absolute Neuts (auto) 8.7 H (1.5-7.7) 10^3/ul Absolute Lymphs (auto) 0.2 L (1.0-4.8) 10^3/ul Absolute Monos (auto) 0.1 (0-0.8) 10^3/ul Absolute Eos (auto) 0 (0-0.6) 10^3/ul Absolute Basos (auto) 0.1 (0-0.2) 10^3/ul Absolute Nucleated RBC 0 10^3/ul Nucleated RBC % 0 INR (Anticoag Therapy) 1.08 H (0.77-1.02) APTT 30.5 (26.0-36.3) seconds Sodium (135-145) mmol/L Potassium (3.5-5.0) mmol/L Chloride (101-111) mmol/L Carbon Dioxide (22-32) mmol/L Anion Gap (2-11) mmol/L BUN (6-24) mg/dL Creatinine (0.51-0.95) mg/dL Est GFR ( Amer) (>60) Est GFR (Non-Af Amer) (>60) BUN/Creatinine Ratio (8-20) Glucose (70-100) mg/dL Lactic Acid (0.5-2.0) mmol/L Calcium (8.6-10.3) mg/dL Total Bilirubin (0.2-1.0) mg/dL AST (13-39) U/L ALT (7-52) U/L Alkaline Phosphatase (34-104) U/L Troponin I (<0.04) ng/mL Total Protein (6.4-8.9) g/dL Albumin (3.2-5.2) g/dL Globulin (2-4) g/dL Albumin/Globulin Ratio (1-3) Urine Color Yellow Urine Appearance Clear Urine pH 6.0 (5-9) Ur Specific [place] 1.011 (1.010-1.030) Urine Protein Negative (Negative) Urine Ketones Negative (Negative) Urine Blood Negative (Negative) Urine Nitrate Negative (Negative) Urine Bilirubin Negative (Negative) Urine Urobilinogen Negative (Negative) Ur Leukocyte Esterase Negative (Negative) Urine Glucose Negative (Negative) 10/07/17 10/07/17 Range/Units 21:39 21:39 WBC (3.5-10.8) 10^3/ul RBC (4.00-5.40) 10^6/ul Hgb (12.0-16.0) g/dl Hct (35-47) % MCV (80-97) fL MCH (27-31) pg MCHC (31-36) g/dl RDW (10.5-15) % Plt Count (150-450) 10^3/ul MPV (7.4-10.4) um3 Neut % (Auto) (38-83) % Lymph % (Auto) (25-47) % [place] % (Auto) (0-7) % Eos % (Auto) (0-6) % Baso % (Auto) (0-2) % Absolute Neuts (auto) (1.5-7.7) 10^3/ul Absolute Lymphs (auto) (1.0-4.8) 10^3/ul Absolute Monos (auto) (0-0.8) 10^3/ul Absolute Eos (auto) (0-0.6) 10^3/ul Absolute Basos (auto) (0-0.2) 10^3/ul Absolute Nucleated RBC 10^3/ul Nucleated RBC % INR (Anticoag Therapy) (0.77-1.02) APTT (26.0-36.3) seconds Sodium 139 (135-145) mmol/L Potassium 3.5 (3.5-5.0) mmol/L Chloride 107 (101-111) mmol/L Carbon Dioxide 26 (22-32) mmol/L Anion Gap 6 (2-11) mmol/L BUN 21 (6-24) mg/dL Creatinine 0.77 (0.51-0.95) mg/dL Est GFR ( Amer) 94.0 (>60) Est GFR (Non-Af Amer) 73.1 (>60) BUN/Creatinine Ratio 27.3 H (8-20) Glucose 167 H (70-100) mg/dL Lactic Acid 1.3 (0.5-2.0) mmol/L Calcium 8.6 (8.6-10.3) mg/dL Total Bilirubin 0.50 (0.2-1.0) mg/dL AST 29 (13-39) U/L ALT 23 (7-52) U/L Alkaline Phosphatase 124 H (34-104) U/L Troponin I 0.03 (<0.04) ng/mL Total Protein 6.6 (6.4-8.9) g/dL Albumin 3.1 L (3.2-5.2) g/dL Globulin 3.5 (2-4) g/dL Albumin/Globulin Ratio 0.9 L (1-3) Urine Color Urine Appearance Urine pH (5-9) Ur Specific [place] (1.010-1.030) Urine Protein (Negative) Urine Ketones (Negative) Urine Blood (Negative) Urine Nitrate (Negative) Urine Bilirubin (Negative) Urine Urobilinogen (Negative) Ur Leukocyte Esterase (Negative) Urine Glucose (Negative) Assess/Plan/Problems-Billing Assessment: - Patient Problems (1) Pneumonia Current Visit: Yes Status: Acute Code(s): J18.9 - PNEUMONIA, UNSPECIFIED ORGANISM SNOMED Code(s): 318250643 Comment: #PNA with sepsis and bacteremia: -3 culture bottles positive for Gram (+) cocci likely due to Strep -Discussed with Dr. Ford who prefers Rocephin instead given pt is elderly and will defer -Will await speciation and sensitivity data---and defer to my colleagues on F/U (2) Ventricular fibrillation Current Visit: No Status: Acute Code(s): I49.01 - VENTRICULAR FIBRILLATION SNOMED Code(s): 39538810 Comment: #Hx of VT: -Continue watchful waiting -Stable (3) History of ischemic cardiomyopathy Current Visit: No Status: Chronic Code(s): Z98.89 - OTHER SPECIFIED POSTPROCEDURAL STATES * DO NOT USE * SNOMED Code(s): 158221630 Comment: #Ischemic CM: -Continue ASA, Plavix, statins and Metoprolol -Agree to hold Lasix and KCl (4) PAD (peripheral artery disease) Current Visit: Yes Status: Acute Code(s): I73.9 - PERIPHERAL VASCULAR DISEASE, UNSPECIFIED SNOMED Code(s): 609953974 Comment: -As above (5) Type II diabetes mellitus Current Visit: No Status: Acute Comment: -Well controlled -Continue current Insulin orders (6) DVT prophylaxis Current Visit: No Status: Acute Onset Date: 07/05/14 Code(s): OLB0353 - SNOMED Code(s): 146463852 Comment: - Arixtra. Status and Disposition: -As above
[2017-10-08] MEDS ORDERED: Levofloxacin 750 MG IVPREMIX(* 750 MG/150 ML BAG IVPB SCH (22:00)
[2017-10-09] MEDS: Acetaminophen TAB* 325 MG PO PRN ×3 (01:28→21:50)
[2017-10-09 06:51] LABS: Hematocrit 33 % (35-47); Hemoglobin 10.9 g/dl (12.0-16.0); Mean Corpuscular HGB Conc 34 g/dl (31-36); Mean Corpuscular Hemoglobin 30 pg (27-31); Mean Corpuscular Volume 89 fL (80-97); Mean Platelet Volume 8.7 um3 (7.4-10.4); Platelet Count 90 10^3/ul (150-450); Red Blood Count 3.65 10^6/ul (4.00-5.40); Red Cell Distribution Width 16 % (10.5-15)
[2017-10-09 06:58] LABS: EGFR Non-African American 85.8 (>60)
[2017-10-09] MEDS: NS 0.9% 1000 ML* 1,000 ML IV SCH (07:50)
[2017-10-09 07:55] LABS: ABS Basophils 0.1 10^3/ul (0-0.2); ABS Eosinophils 0.1 10^3/ul (0-0.6); ABS Monocytes 0.4 10^3/ul (0-0.8); ABS Neutrophils 12.5 10^3/ul (1.5-7.7); ABS Nucleated RBC 0 10^3/ul; Eosinophil % 0.4 % (0-6); Lymphocyte % 6.9 % (25-47); Nucleated Red Blood Cells % 0
[2017-10-09] MEDS: Insulin LISPRO* 1 UNITS UNIT SUBCUT SCH ×7 (07:59→21:53)
[2017-10-09] MEDS ORDERED: Magnesium Sulfate 2 GM IV* 2 GM/50 ML BAG IVPB ONE (08:35)
[2017-10-09] MEDS: Docusate CAP* 100 MG PO SCH ×2 (09:23→22:32)
[2017-10-09] MEDS: Metoprolol Tartrate TAB* 50 mg PO SCH ×2 (09:24→21:51)
[2017-10-09] MEDS: Aspirin EC TAB* 81 MG TAB.EC PO SCH (09:24)
[2017-10-09] MEDS: CMCS:Pantoprazole TAB (NF) 40 MG TAB PO SCH (09:24)
[2017-10-09] MEDS: Clopidogrel TAB* 75 MG PO SCH (09:24)
[2017-10-09] MEDS: Sertraline* 50 MG TAB PO SCH (09:25)
[2017-10-09] MEDS: Magnesium Oxide TAB* 400 MG PO SCH ×2 (09:25→21:51)
[2017-10-09] MEDS: Fondaparinux* 7.5 MG/0.6 ML SYRINGE SUBCUT SCH (09:26)
--- NOTE | 2017-10-09 15:38 | PN ---
Progress Note - Progress Note Date of Service: 10/09/17 SOAP: Subjective: CC: bacteremia HPI: 76 year old woman with pacemaker and recent admission with fever, malaise, weakness found to have bacteremia. Fever resolved, no rash. No back or joint pain. Objective: Vital Signs Temp 36.5 C 10/09/17 11:34 Pulse 63 10/09/17 11:34 Resp 17 10/09/17 11:34 BP 105/39 10/09/17 11:34 Pulse Ox 98 10/09/17 11:34 Intake & Output 10/08/17 10/09/17 10/09/17 18:59 06:59 18:59 Intake Total 690 1580 1120 Output Total 250 1900 450 Balance 440 -320 670 Intake: IV Fluids 1100 NS 1100 Oral 746 746 2105 Output: Urine 900 Gonzales 250 1000 450 Other: Estimated Void Medium # Bowel Movements 0 # Voids 1 Gen:awake, no distress HEENT: no thrush Heart:RRR no murmur Lungs:CTA BL Abd:+BS NTND soft Skin: no rash MSK: no spine or joint tenderness Laboratory Results - last 24 hr 10/08/17 10/08/17 10/09/17 16:49 20:35 06:09 WBC 14.0 H RBC 3.65 L Hgb 10.9 L Hct 33 L MCV 89 MCH 30 MCHC 34 RDW 16 H Plt Count 90 L MPV 8.7 Neut % (Auto) 89.3 H Lymph % (Auto) 6.9 L [place] % (Auto) 3.0 Eos % (Auto) 0.4 Baso % (Auto) 0.4 Absolute Neuts (auto) 12.5 H Absolute Lymphs (auto) 1.0 Absolute Monos (auto) 0.4 Absolute Eos (auto) 0.1 Absolute Basos (auto) 0.1 Absolute Nucleated RBC 0 Nucleated RBC % 0 Hem Pathologist Commnt Sodium Potassium Chloride Carbon Dioxide Anion Gap BUN Creatinine Est GFR ( Amer) Est GFR (Non-Af Amer) BUN/Creatinine Ratio Glucose POC Glucose (mg/dL) 165 H 153 H Calcium Phosphorus Magnesium Total Bilirubin AST ALT Alkaline Phosphatase Total Protein Albumin Globulin Albumin/Globulin Ratio 10/09/17 10/09/17 10/09/17 06:09 07:55 11:29 WBC RBC Hgb Hct MCV MCH MCHC RDW Plt Count MPV Neut % (Auto) Lymph % (Auto) [place] % (Auto) Eos % (Auto) Baso % (Auto) Absolute Neuts (auto) Absolute Lymphs (auto) Absolute Monos (auto) Absolute Eos (auto) Absolute Basos (auto) Absolute Nucleated RBC Nucleated RBC % Hem Pathologist Commnt Sodium 137 Potassium 3.6 Chloride 108 Carbon Dioxide 23 Anion Gap 6 BUN 17 Creatinine 0.67 Est GFR ( Amer) 110.4 Est GFR (Non-Af Amer) 85.8 BUN/Creatinine Ratio 25.4 H Glucose 90 POC Glucose (mg/dL) 101 H 157 H Calcium 8.9 Phosphorus 2.2 L Magnesium 1.7 L Total Bilirubin 0.60 AST 44 H ALT 23 Alkaline Phosphatase 85 Total Protein 6.0 L Albumin 2.7 L Globulin 3.3 Albumin/Globulin Ratio 0.8 L Microbiology 10/07/17 21:39 Blood Venous Aerobic Blood Culture - Final Strep Dysgalac (Strep Equisim) 10/07/17 21:39 Blood Venous Anaerobic Blood Culture - Final Strep Dysgalac (Strep Equisim) 10/07/17 21:39 Blood Venous Aerobic Blood Culture - Final Strep Dysgalac (Strep Equisim) 10/07/17 21:39 Blood Venous Anaerobic Blood Culture - Final Strep Dysgalac (Strep Equisim) 10/08/17 12:21 Urine Legionella Urinary Antigen - Final Negative Legionella Antigen 10/08/17 12:21 Urine Streptococcus pneumoniae Ag Screen - Final Negative S. pneumo Antigen Assessment: 1. Strep dysgalactiae susbsp equisimilis due to pneumonia though infective endocarditis on the differential 2. Community acquired pneumonia 3. presence of pacemaker 4. CAD s/p CABG Plan: 1.continue ceftriaxone, RAYNA to r/o valve and pacer lead vegetations; abx duration pending results 2. SPEP, Ig levels 35 minutes floor time >50% face to face counseling regarding need for RAYNA
[2017-10-09] MEDS: cefTRIAXone(*) 1 GM in NS 0.9% 50 ML* 50 ML IVPB SCH (17:26)
--- NOTE | 2017-10-09 19:33 | PN ---
Subjective Date of Service: 10/09/17 Interval History: c/o feeling weak, resting in bed. No other complaints. Denies chest pain or shortness of breath. blood cultures positive for strep in 3 of 4 bottle - Dr. Curry consulted, will need RAYNA to R/o veg. Denies abd pain n/v/d Family History: Unchanged from Admission Social History: Unchanged from Admission Past Medical History: Unchanged from Admission Objective Active Medications: Acetaminophen (Tylenol Tab*) 650 mg PO Q6H PRN PRN Reason: FEVER/PAIN Last Admin: 10/09/17 09:23 Dose: 650 mg Albuterol (Ventolin 2.5 Mg/3 Ml Neb.Tawana*) 2.5 mg INH Q2H PRN PRN Reason: SOB/WHEEZING Aspirin (Aspirin Ec Tab*) 81 mg PO DAILY [facility] Last Admin: 10/09/17 09:24 Dose: 81 mg Atorvastatin Calcium (Lipitor*) 80 mg PO BEDTIME [facility] Last Admin: 10/08/17 20:53 Dose: 80 mg Clopidogrel Bisulfate (Plavix Tab*) 75 mg PO DAILY [facility] Last Admin: 10/09/17 09:24 Dose: 75 mg Docusate Sodium (Colace Cap*) 200 mg PO BID [facility] Last Admin: 10/09/17 09:23 Dose: 200 mg Fondaparinux (Arixtra*) 7.5 mg SUBCUT DAILY [facility] Last Admin: 10/09/17 09:26 Dose: 7.5 mg Sodium Chloride (Ns 0.9% 1000 Ml*) 1,000 mls @ 100 mls/hr IV PER RATE [facility] Last Admin: 10/09/17 07:50 Dose: 100 mls/hr Ceftriaxone Sodium 1 gm/ (Sodium Chloride) 50 mls @ 200 mls/hr IVPB Q24H [facility] Last Admin: 10/09/17 17:26 Dose: 200 mls/hr Insulin Glargine (Lantus(*)) 22 units 0.24 units/kg (22 units) SUBCUT 2100 [facility] Last Admin: 10/08/17 20:54 Dose: 22 units Insulin Human Lispro (Humalog*) 0 units SUBCUT ACHS [facility] PRN Reason: Protocol Last Admin: 10/09/17 17:25 Dose: 3 unit Magnesium Oxide (Magox 400 Tab*) 400 mg PO BID [facility] Last Admin: 10/09/17 09:25 Dose: 400 mg Melatonin (Melatonin) 3 mg PO BEDTIME PRN; Protocol PRN Reason: Sleep Metoprolol Tartrate (Lopressor Tab*) 50 mg PO BID [facility] Last Admin: 10/09/17 09:24 Dose: 50 mg Ondansetron HCl (Zofran Odt Tab*) 4 mg PO Q6H PRN PRN Reason: n/v Pantoprazole Sodium (Protonix Tab (Nf)) 40 mg PO DAILY [facility] Last Admin: 10/09/17 09:24 Dose: 40 mg Sertraline HCl (Zoloft*) 50 mg PO DAILY [facility] Last Admin: 10/09/17 09:25 Dose: 50 mg Vital Signs - 8 hr 10/09/17 10/09/17 10/09/17 11:34 15:30 16:00 Temperature 97.7 F 97.8 F Pulse Rate 63 71 Respiratory 17 20 Rate Blood Pressure 105/39 105/44 (mmHg) O2 Sat by Pulse 98 97 97 Oximetry Oxygen Devices in Use Now: None Appearance: appears weak, resting in bed, awake to verbal stimuli Eyes: No Scleral Icterus Ears/Nose/Mouth/Throat: Mucous Membranes Moist Neck: NL Appearance and Movements; NL JVP, Trachea Midline Respiratory: Symmetrical Chest Expansion and Respiratory Effort, - - diminished in the bases bilat Cardiovascular: NL Sounds; No Murmurs; No JVD, No Edema Abdominal: NL Sounds; No Tenderness; No Distention Skin: No Rash or Ulcers Neurological: Alert and Oriented x 3 Nutrition: Taking PO's Result Diagrams: 10/09/17 06:09 10/09/17 06:09 Additional Lab and Data: Lab Results 10/07/17 10/07/17 10/07/17 Range/Units 20:45 21:39 21:39 WBC 9.1 (3.5-10.8) 10^3/ul RBC 3.78 L (4.00-5.40) 10^6/ul Hgb 11.0 L (12.0-16.0) g/dl Hct 34 L (35-47) % MCV 89 (80-97) fL MCH 29 (27-31) pg MCHC 33 (31-36) g/dl RDW 16 H (10.5-15) % Plt Count 116 L (150-450) 10^3/ul MPV 7.9 (7.4-10.4) um3 Neut % (Auto) 95.5 H (38-83) % Lymph % (Auto) 2.4 L (25-47) % [place] % (Auto) 0.9 (0-7) % Eos % (Auto) 0.3 (0-6) % Baso % (Auto) 0.9 (0-2) % Absolute Neuts (auto) 8.7 H (1.5-7.7) 10^3/ul Absolute Lymphs (auto) 0.2 L (1.0-4.8) 10^3/ul Absolute Monos (auto) 0.1 (0-0.8) 10^3/ul Absolute Eos (auto) 0 (0-0.6) 10^3/ul Absolute Basos (auto) 0.1 (0-0.2) 10^3/ul Absolute Nucleated RBC 0 10^3/ul Nucleated RBC % 0 INR (Anticoag Therapy) 1.08 H (0.77-1.02) APTT 30.5 (26.0-36.3) seconds Sodium (135-145) mmol/L Potassium (3.5-5.0) mmol/L Chloride (101-111) mmol/L Carbon Dioxide (22-32) mmol/L Anion Gap (2-11) mmol/L BUN (6-24) mg/dL Creatinine (0.51-0.95) mg/dL Est GFR ( Amer) (>60) Est GFR (Non-Af Amer) (>60) BUN/Creatinine Ratio (8-20) Glucose (70-100) mg/dL Lactic Acid (0.5-2.0) mmol/L Calcium (8.6-10.3) mg/dL Total Bilirubin (0.2-1.0) mg/dL AST (13-39) U/L ALT (7-52) U/L Alkaline Phosphatase (34-104) U/L Troponin I (<0.04) ng/mL Total Protein (6.4-8.9) g/dL Albumin (3.2-5.2) g/dL Globulin (2-4) g/dL Albumin/Globulin Ratio (1-3) Urine Color Yellow Urine Appearance Clear Urine pH 6.0 (5-9) Ur Specific [place] 1.011 (1.010-1.030) Urine Protein Negative (Negative) Urine Ketones Negative (Negative) Urine Blood Negative (Negative) Urine Nitrate Negative (Negative) Urine Bilirubin Negative (Negative) Urine Urobilinogen Negative (Negative) Ur Leukocyte Esterase Negative (Negative) Urine Glucose Negative (Negative) 10/07/17 10/07/17 Range/Units 21:39 21:39 WBC (3.5-10.8) 10^3/ul RBC (4.00-5.40) 10^6/ul Hgb (12.0-16.0) g/dl Hct (35-47) % MCV (80-97) fL MCH (27-31) pg MCHC (31-36) g/dl RDW (10.5-15) % Plt Count (150-450) 10^3/ul MPV (7.4-10.4) um3 Neut % (Auto) (38-83) % Lymph % (Auto) (25-47) % [place] % (Auto) (0-7) % Eos % (Auto) (0-6) % Baso % (Auto) (0-2) % Absolute Neuts (auto) (1.5-7.7) 10^3/ul Absolute Lymphs (auto) (1.0-4.8) 10^3/ul Absolute Monos (auto) (0-0.8) 10^3/ul Absolute Eos (auto) (0-0.6) 10^3/ul Absolute Basos (auto) (0-0.2) 10^3/ul Absolute Nucleated RBC 10^3/ul Nucleated RBC % INR (Anticoag Therapy) (0.77-1.02) APTT (26.0-36.3) seconds Sodium 139 (135-145) mmol/L Potassium 3.5 (3.5-5.0) mmol/L Chloride 107 (101-111) mmol/L Carbon Dioxide 26 (22-32) mmol/L Anion Gap 6 (2-11) mmol/L BUN 21 (6-24) mg/dL Creatinine 0.77 (0.51-0.95) mg/dL Est GFR ( Amer) 94.0 (>60) Est GFR (Non-Af Amer) 73.1 (>60) BUN/Creatinine Ratio 27.3 H (8-20) Glucose 167 H (70-100) mg/dL Lactic Acid 1.3 (0.5-2.0) mmol/L Calcium 8.6 (8.6-10.3) mg/dL Total Bilirubin 0.50 (0.2-1.0) mg/dL AST 29 (13-39) U/L ALT 23 (7-52) U/L Alkaline Phosphatase 124 H (34-104) U/L Troponin I 0.03 (<0.04) ng/mL Total Protein 6.6 (6.4-8.9) g/dL Albumin 3.1 L (3.2-5.2) g/dL Globulin 3.5 (2-4) g/dL Albumin/Globulin Ratio 0.9 L (1-3) Urine Color Urine Appearance Urine pH (5-9) Ur Specific [place] (1.010-1.030) Urine Protein (Negative) Urine Ketones (Negative) Urine Blood (Negative) Urine Nitrate (Negative) Urine Bilirubin (Negative) Urine Urobilinogen (Negative) Ur Leukocyte Esterase (Negative) Urine Glucose (Negative) Assess/Plan/Problems-Billing Assessment: - Patient Problems (1) Pneumonia Current Visit: Yes Status: Acute Code(s): J18.9 - PNEUMONIA, UNSPECIFIED ORGANISM SNOMED Code(s): 837865609 Comment: #PNA with sepsis and bacteremia: -3 culture bottles positive for Gram (+) cocci - Strep dysgalae- sensitive to ceftriaxone- will continue - Will need RAYNA to R/o Veg - patient has a pacemaker and positive blood cultures - afebrile today WBC- trending down 14.0 (2) Afib Current Visit: No Status: Acute Code(s): I48.91 - UNSPECIFIED ATRIAL FIBRILLATION SNOMED Code(s): 64227334 Comment: - Now in NSR. - Continue metoprolol - Continue arixtra. (3) CAD (coronary artery disease) Current Visit: No Status: Acute Code(s): I25.10 - ATHSCL HEART DISEASE OF [place] CORONARY ARTERY W/O ANG PCTRS SNOMED Code(s): 16165102 Comment: - Continue ASA, plavix, metoprolol, lipitor and arixtra. (4) HTN (hypertension) Current Visit: No Status: Acute Code(s): I10 - ESSENTIAL (PRIMARY) HYPERTENSION SNOMED Code(s): 35577428 Comment: - BP controlled- soft- may consider decreasing beta quintin - Continue current medication regimen. (5) Type II diabetes mellitus Current Visit: No Status: Acute Comment: - controlled -lispro and lantus - finger sticks (6) Depression Current Visit: Yes Status: Acute Code(s): F32.9 - MAJOR DEPRESSIVE DISORDER , SINGLE EPISODE, UNSPECIFIED SNOMED Code(s): 74523070 Comment: continue sertiline (7) GERD (gastroesophageal reflux disease) Current Visit: Yes Status: Acute Code(s): K21.9 - GASTRO-ESOPHAGEAL REFLUX DISEASE WITHOUT ESOPHAGITIS SNOMED Code(s): 330016533 Comment: continue omeprazole (8) DVT prophylaxis Current Visit: No Status: Acute Onset Date: 07/05/14 Code(s): CKQ4077 - SNOMED Code(s): 721954873 Comment: - Arixtra. (9) Full code status Current Visit: No Status: Acute Onset Date: 07/05/14 Code(s): Z78.9 - OTHER SPECIFIED HEALTH STATUS SNOMED Code(s): 921944104 Comment: Status and Disposition: Inpatient -
[2017-10-09] MEDS ORDERED: NS 0.9% 1000 ML* 1,000 ML IV SCH (19:45)
[2017-10-09] MEDS: Atorvastatin* 80 MG TAB PO SCH (21:51)
[2017-10-09] MEDS: Insulin GLARGINE(*) 1 UNITS UNIT SUBCUT SCH (21:53)
[2017-10-10] MEDS: traMADol TAB* 50 MG PO PRN (00:21)
[2017-10-10 06:05] LABS: ABS Basophils 0 10^3/ul (0-0.2); ABS Eosinophils 0.2 10^3/ul (0-0.6); ABS Lymphocytes 0.9 10^3/ul (1.0-4.8); ABS Monocytes 0.3 10^3/ul (0-0.8); ABS Neutrophils 5.9 10^3/ul (1.5-7.7); ABS Nucleated RBC 0 10^3/ul; Eosinophil % 2.6 % (0-6); Hematocrit 30 % (35-47); Lymphocyte % 12.3 % (25-47); Mean Corpuscular HGB Conc 34 g/dl (31-36); Mean Corpuscular Hemoglobin 30 pg (27-31); Mean Corpuscular Volume 89 fL (80-97); Mean Platelet Volume 8.5 um3 (7.4-10.4); Nucleated Red Blood Cells % 0; Platelet Count 87 10^3/ul (150-450); Red Blood Count 3.36 10^6/ul (4.00-5.40); Red Cell Distribution Width 16 % (10.5-15); White Blood Count 7.3 10^3/ul (3.5-10.8)
[2017-10-10 06:23] LABS: EGFR Non-African American 103.4 (>60)
[2017-10-10] MEDS: Insulin LISPRO* 1 UNITS UNIT SUBCUT SCH ×4 (08:05→20:18)
[2017-10-10] MEDS: Docusate CAP* 100 MG PO SCH ×2 (08:06→20:07)
[2017-10-10] MEDS: Clopidogrel TAB* 75 MG PO SCH (08:06)
[2017-10-10] MEDS: Magnesium Oxide TAB* 400 MG PO SCH ×2 (08:06→20:16)
[2017-10-10] MEDS: Aspirin EC TAB* 81 MG TAB.EC PO SCH (08:06)
[2017-10-10] MEDS: Fondaparinux* 7.5 MG/0.6 ML SYRINGE SUBCUT SCH (08:06)
[2017-10-10] MEDS: Metoprolol Tartrate TAB* 50 mg PO SCH ×2 (08:07→20:16)
[2017-10-10] MEDS: Sertraline* 50 MG TAB PO SCH (08:07)
[2017-10-10] MEDS: CMCS:Pantoprazole TAB (NF) 40 MG TAB PO SCH (08:07)
[2017-10-10] MEDS ORDERED: Midazolam* 1 MG/ML 10 ML VIAL (10 MG) ONE (10:07)
[2017-10-10] MEDS ORDERED: Lidocaine 2% VISCOUS* 15 ML UDC ONE (10:08)
[2017-10-10] MEDS ORDERED: fentaNYL* 50 MCG/ML 2 ML VIAL (100 MCG VIAL) ONE (10:08)
[2017-10-10] MEDS ORDERED: Flumazenil* 0.1 MG/ML 5 ML MDV ONE (10:08)
[2017-10-10] MEDS ORDERED: Naloxone* 0.4 MG/ML 1 ML VIAL ONE (10:08)
--- NOTE | 2017-10-10 11:23 | PN ---
Subjective Date of Service: 10/10/17 Interval History: C/o upper back pain during the night. Denies chest pain or shortness of breath. Denies abd pain n/v/d. continues to feel fatigued Family History: Unchanged from Admission Social History: Unchanged from Admission Past Medical History: Unchanged from Admission Objective Active Medications: Acetaminophen (Tylenol Tab*) 650 mg PO Q6H PRN PRN Reason: FEVER/PAIN Last Admin: 10/09/17 21:50 Dose: 650 mg Albuterol (Ventolin 2.5 Mg/3 Ml Neb.Tawana*) 2.5 mg INH Q2H PRN PRN Reason: SOB/WHEEZING Aspirin (Aspirin Ec Tab*) 81 mg PO DAILY [facility] Last Admin: 10/10/17 08:06 Dose: Not Given Atorvastatin Calcium (Lipitor*) 80 mg PO BEDTIME [facility] Last Admin: 10/09/17 21:51 Dose: 80 mg Clopidogrel Bisulfate (Plavix Tab*) 75 mg PO DAILY [facility] Last Admin: 10/10/17 08:06 Dose: Not Given Docusate Sodium (Colace Cap*) 200 mg PO BID [facility] Last Admin: 10/10/17 08:06 Dose: Not Given Fondaparinux (Arixtra*) 7.5 mg SUBCUT DAILY [facility] Last Admin: 10/10/17 08:06 Dose: Not Given Ceftriaxone Sodium 1 gm/ (Sodium Chloride) 50 mls @ 200 mls/hr IVPB Q24H [facility] Last Admin: 10/09/17 17:26 Dose: 200 mls/hr Sodium Chloride (Ns 0.9% 1000 Ml*) 1,000 mls @ 50 mls/hr IV PER RATE [facility] Stop: 10/10/17 15:43 Last Admin: 10/09/17 21:54 Dose: 50 mls/hr Insulin Glargine (Lantus(*)) 22 units 0.24 units/kg (22 units) SUBCUT 2100 [facility] Last Admin: 10/09/17 21:53 Dose: 22 units Insulin Human Lispro (Humalog*) 0 units SUBCUT ACHS [facility] PRN Reason: Protocol Last Admin: 10/10/17 08:05 Dose: Not Given Magnesium Oxide (Magox 400 Tab*) 400 mg PO BID [facility] Last Admin: 10/10/17 08:06 Dose: Not Given Melatonin (Melatonin) 3 mg PO BEDTIME PRN; Protocol PRN Reason: Sleep Metoprolol Tartrate (Lopressor Tab*) 50 mg PO BID [facility] Last Admin: 10/10/17 08:07 Dose: Not Given Ondansetron HCl (Zofran Odt Tab*) 4 mg PO Q6H PRN PRN Reason: n/v Pantoprazole Sodium (Protonix Tab (Nf)) 40 mg PO DAILY [facility] Last Admin: 10/10/17 08:07 Dose: Not Given Sertraline HCl (Zoloft*) 50 mg PO DAILY [facility] Last Admin: 10/10/17 08:07 Dose: Not Given Tramadol HCl (Ultram*) 50 mg PO Q8H PRN PRN Reason: PAIN Last Admin: 10/10/17 00:21 Dose: 50 mg Vital Signs - 8 hr 10/10/17 10/10/17 10/10/17 03:48 04:23 07:40 Temperature 98.0 F 98.0 F Pulse Rate 64 60 Respiratory 18 16 16 Rate Blood Pressure 118/48 102/50 (mmHg) O2 Sat by Pulse 100 98 Oximetry Oxygen Devices in Use Now: None Appearance: appears comfortable resting in bed, alert to verbal Eyes: No Scleral Icterus Ears/Nose/Mouth/Throat: Clear Oropharnyx, Mucous Membranes Moist Neck: NL Appearance and Movements; NL JVP, Trachea Midline Respiratory: Symmetrical Chest Expansion and Respiratory Effort, Clear to Auscultation, - - diminished at the bases bilat Cardiovascular: No Edema, - - murmur, NO JVD, NL sounds Abdominal: NL Sounds; No Tenderness; No Distention Extremities: No Edema, No Clubbing, Cyanosis Skin: No Rash or Ulcers, No Nodules or Sclerosis Neurological: Alert and Oriented x 3 Nutrition: - - NPO for procedure Result Diagrams: 10/10/17 05:49 10/10/17 05:49 Additional Lab and Data: Lab Results 10/07/17 10/07/17 10/07/17 Range/Units 20:45 21:39 21:39 WBC 9.1 (3.5-10.8) 10^3/ul RBC 3.78 L (4.00-5.40) 10^6/ul Hgb 11.0 L (12.0-16.0) g/dl Hct 34 L (35-47) % MCV 89 (80-97) fL MCH 29 (27-31) pg MCHC 33 (31-36) g/dl RDW 16 H (10.5-15) % Plt Count 116 L (150-450) 10^3/ul MPV 7.9 (7.4-10.4) um3 Neut % (Auto) 95.5 H (38-83) % Lymph % (Auto) 2.4 L (25-47) % Kay % (Auto) 0.9 (0-7) % Eos % (Auto) 0.3 (0-6) % Baso % (Auto) 0.9 (0-2) % Absolute Neuts (auto) 8.7 H (1.5-7.7) 10^3/ul Absolute Lymphs (auto) 0.2 L (1.0-4.8) 10^3/ul Absolute Monos (auto) 0.1 (0-0.8) 10^3/ul Absolute Eos (auto) 0 (0-0.6) 10^3/ul Absolute Basos (auto) 0.1 (0-0.2) 10^3/ul Absolute Nucleated RBC 0 10^3/ul Nucleated RBC % 0 INR (Anticoag Therapy) 1.08 H (0.77-1.02) APTT 30.5 (26.0-36.3) seconds Sodium (135-145) mmol/L Potassium (3.5-5.0) mmol/L Chloride (101-111) mmol/L Carbon Dioxide (22-32) mmol/L Anion Gap (2-11) mmol/L BUN (6-24) mg/dL Creatinine (0.51-0.95) mg/dL Est GFR ( Amer) (>60) Est GFR (Non-Af Amer) (>60) BUN/Creatinine Ratio (8-20) Glucose (70-100) mg/dL Lactic Acid (0.5-2.0) mmol/L Calcium (8.6-10.3) mg/dL Total Bilirubin (0.2-1.0) mg/dL AST (13-39) U/L ALT (7-52) U/L Alkaline Phosphatase (34-104) U/L Troponin I (<0.04) ng/mL Total Protein (6.4-8.9) g/dL Albumin (3.2-5.2) g/dL Globulin (2-4) g/dL Albumin/Globulin Ratio (1-3) Urine Color Yellow Urine Appearance Clear Urine pH 6.0 (5-9) Ur Specific [place] 1.011 (1.010-1.030) Urine Protein Negative (Negative) Urine Ketones Negative (Negative) Urine Blood Negative (Negative) Urine Nitrate Negative (Negative) Urine Bilirubin Negative (Negative) Urine Urobilinogen Negative (Negative) Ur Leukocyte Esterase Negative (Negative) Urine Glucose Negative (Negative) 10/07/17 10/07/17 Range/Units 21:39 21:39 WBC (3.5-10.8) 10^3/ul RBC (4.00-5.40) 10^6/ul Hgb (12.0-16.0) g/dl Hct (35-47) % MCV (80-97) fL MCH (27-31) pg MCHC (31-36) g/dl RDW (10.5-15) % Plt Count (150-450) 10^3/ul MPV (7.4-10.4) um3 Neut % (Auto) (38-83) % Lymph % (Auto) (25-47) % Kay % (Auto) (0-7) % Eos % (Auto) (0-6) % Baso % (Auto) (0-2) % Absolute Neuts (auto) (1.5-7.7) 10^3/ul Absolute Lymphs (auto) (1.0-4.8) 10^3/ul Absolute Monos (auto) (0-0.8) 10^3/ul Absolute Eos (auto) (0-0.6) 10^3/ul Absolute Basos (auto) (0-0.2) 10^3/ul Absolute Nucleated RBC 10^3/ul Nucleated RBC % INR (Anticoag Therapy) (0.77-1.02) APTT (26.0-36.3) seconds Sodium 139 (135-145) mmol/L Potassium 3.5 (3.5-5.0) mmol/L Chloride 107 (101-111) mmol/L Carbon Dioxide 26 (22-32) mmol/L Anion Gap 6 (2-11) mmol/L BUN 21 (6-24) mg/dL Creatinine 0.77 (0.51-0.95) mg/dL Est GFR ( Amer) 94.0 (>60) Est GFR (Non-Af Amer) 73.1 (>60) BUN/Creatinine Ratio 27.3 H (8-20) Glucose 167 H (70-100) mg/dL Lactic Acid 1.3 (0.5-2.0) mmol/L Calcium 8.6 (8.6-10.3) mg/dL Total Bilirubin 0.50 (0.2-1.0) mg/dL AST 29 (13-39) U/L ALT 23 (7-52) U/L Alkaline Phosphatase 124 H (34-104) U/L Troponin I 0.03 (<0.04) ng/mL Total Protein 6.6 (6.4-8.9) g/dL Albumin 3.1 L (3.2-5.2) g/dL Globulin 3.5 (2-4) g/dL Albumin/Globulin Ratio 0.9 L (1-3) Urine Color Urine Appearance Urine pH (5-9) Ur Specific [place] (1.010-1.030) Urine Protein (Negative) Urine Ketones (Negative) Urine Blood (Negative) Urine Nitrate (Negative) Urine Bilirubin (Negative) Urine Urobilinogen (Negative) Ur Leukocyte Esterase (Negative) Urine Glucose (Negative) Assess/Plan/Problems-Billing Assessment: - Patient Problems (1) Pneumonia Current Visit: Yes Status: Acute Code(s): J18.9 - PNEUMONIA, UNSPECIFIED ORGANISM SNOMED Code(s): 429150937 Comment: #PNA with sepsis and bacteremia: -3 culture bottles positive for Gram (+) cocci - Strep dysgalae- sensitive to ceftriaxone- will continue - Will need RAYNA to R/o Veg - patient has a pacemaker and positive blood cultures - Negative - afebrile today WBC- trending down 7.3 today (2) Afib Current Visit: No Status: Acute Code(s): I48.91 - UNSPECIFIED ATRIAL FIBRILLATION SNOMED Code(s): 97326277 Comment: - Now in NSR. - Continue metoprolol - Continue arixtra. (3) CAD (coronary artery disease) Current Visit: No Status: Acute Code(s): I25.10 - ATHSCL HEART DISEASE OF [place] CORONARY ARTERY W/O ANG PCTRS SNOMED Code(s): 66561944 Comment: - Continue ASA, plavix, metoprolol, lipitor and arixtra. (4) HTN (hypertension) Current Visit: No Status: Acute Code(s): I10 - ESSENTIAL (PRIMARY) HYPERTENSION SNOMED Code(s): 61803457 Comment: - BP controlled- - Continue current medication regimen. (5) Type II diabetes mellitus Current Visit: No Status: Acute Comment: - controlled -lispro and lantus - finger sticks (6) Depression Current Visit: Yes Status: Acute Code(s): F32.9 - MAJOR DEPRESSIVE DISORDER , SINGLE EPISODE, UNSPECIFIED SNOMED Code(s): 42659927 Comment: continue sertiline (7) GERD (gastroesophageal reflux disease) Current Visit: Yes Status: Acute Code(s): K21.9 - GASTRO-ESOPHAGEAL REFLUX DISEASE WITHOUT ESOPHAGITIS SNOMED Code(s): 320956452 Comment: continue omeprazole (8) DVT prophylaxis Current Visit: No Status: Acute Onset Date: 07/05/14 Code(s): KXW2930 - SNOMED Code(s): 680061182 Comment: - Arixtra. (9) Full code status Current Visit: No Status: Acute Onset Date: 07/05/14 Code(s): Z78.9 - OTHER SPECIFIED HEALTH STATUS SNOMED Code(s): 766551529 Comment: Status and Disposition: Inpatient -
--- NOTE | 2017-10-10 15:57 | TEE ---
Patient: JERSON MADRIGAL [facility] Rec#: [id number] : 1940 Date: 10/10/2017 Age: 76y Height: 160.02 cm / 63.0 in Weight: 90.72 kg / 199.9 lbs Sex: F BSA: 1.93 Room#: [facility] Type: Inpatient Referring: Sosa Tran Performing: Johanny Barba MD Reading: Johanny Barba MD Watch Dial Stoner: Mellissa Chan RDCS Nurse: Carmela Godinez RN CC: Corazon JOHNSTON,Robert CC: Daryl Ashford MD Transesophageal Echocardiogram Indication: Bacteremia BP: 135/73 HR: 74 Rhythm: Paced Findings History: CAD with CABG '99, VT, ischemic cardiomyopathy, PAD, DM, DVT in past, HTN, hypothyroid, s/p AICD, former smoker, + blood cultures Strep Agalactiae. Technical Comments: The study quality is good. Left Ventricle: The left ventricular chamber size is normal. There is global hypokinesis of the left ventricle with minor regional variation. There is mildly decreased left ventricular systolic function. The estimated ejection fraction is 40-45%. There is abnormal ventricular septal wall motion consistent with right ventricular pacemaker. Left Atrium: The left atrial chamber size is normal. The left atrial appendage velocity is mildly reduced. No thrombus is visualized within the left atrium. There is no thrombus visualized in the left atrial appendage. Right Ventricle: The right ventricular cavity size is normal. The right ventricular global systolic function is low normal. A pacemaker wire is visualized in the right ventricle.No vegetations noted. Right Atrium: The right atrial cavity size is normal. A pacemaker wire is visualized in the right atrium.No vegetations noted. There is a patent foramen ovale with predominant [id number] shunting. A patent foramen ovale is demonstrated by color Doppler. A bubble study was performed during a transesophageal echocardiogram on a prior date, demonstrating late bubbles. Aortic Valve: The aortic valve is trileaflet. The aortic valve leaflets are mildly thickened. There is evidence of aortic sclerosis without stenosis. There is no evidence of aortic regurgitation. There is no evidence of aortic stenosis. There is no aortic vegetation present. Mitral Valve: The mitral valve leaflets are mildly thickened. There is mild mitral regurgitation. There is no evidence of mitral stenosis. No vegetation is observed on the mitral valve. Tricuspid Valve: The tricuspid valve leaflets are mildly thickened. There is moderate tricuspid regurgitation. The right ventricular systolic pressure is estimated at 52 mmHg. There is evidence of moderate pulmonary hypertension. There is no tricuspid stenosis. No vegetation is observed on the tricuspid valve. Pulmonic Valve: The pulmonic valve appears normal. There is a trace pulmonic regurgitation. There is no pulmonic stenosis. No vegetation is observed on the pulmonic valve. Pericardium: There is no significant pericardial effusion. Aorta: There is no dilatation of the ascending aorta. The aortic root is normal in size. There is plaque visualized in the transverse aorta. There is moderate atherosclerotic plaque in the visualized segments of the aorta. There is plaque visualized in the descending aorta. Pulmonary Artery: The main pulmonary artery appears normal. Venous: The bicaval view was obtained and appears normal. The pulmonary veins appear normal. 3 of 4 visualized. The pulmonary veins appear normal in size. RAYNA Procedures: All standard views were attempted within the limitations of patient tolerance and safety. History and physical as well as labs were reviewed. The patient was in a fasting state. Risks and benefits of the procedure, including alternatives, were discussed and written informed consent was obtained. The patient and/or their health care patient accounting representative expressed understanding of the procedure, risks and benefits. Baseline and continuous monitoring of blood pressure, heart rate, pulse oximetry and heart rhythm was performed throughout the procedure. The appropriate time-out procedure was performed as per [facility] protocol. The patient was placed in the left lateral decubitus position. The patient's posterior pharynx was anesthetized with 20ml of 2% viscous lidocaine. The patient received IV Midazolam with a total dose of 5 mg. The patient received IV Fentanyl with a total dose of 50 mcg. The multiplane transesophageal echocardiogram probe was inserted through the posterior oropharynx and advanced into the esophagus without difficulty. Multiple 2D images were obtained of the heart and its related structures. Color flow Doppler was used for evaluation. Spectral Doppler was also used. The atrial septum was interrogated with color flow Doppler. At the conclusion of the procedure the probe was removed with continuous suction without complications. The patient tolerated the procedure with no apparent complications. Conclusions The left ventricular chamber size is normal. The estimated ejection fraction is 40-45%, global hypokinesis. The right ventricular global systolic function is low normal. A patent foramen ovale is demonstrated by color Doppler. No vegetations noted on the valves or the pacemaker wires. The aortic valve leaflets are mildly thickened with good excursion and function. There is mild mitral regurgitation. There is moderate tricuspid regurgitation. There is evidence of moderate pulmonary hypertension: 52 mmHg. There is plaque visualized in the aorta. Measurements Name Value Normal Range Aortic Annulus 2.1 cm (1.4 - 2.6) Ao root diameter (2D) 3 cm (2.1 - 3.5) Ascending Ao 3 cm (2.1 - 3.4) Name Value Normal Range MV E-wave Vmax 1.24 m/sec - MV deceleration time 171.1 msec - MV A-wave Vmax 0.83 m/sec - MV E:A ratio 1.48 ratio - Name Value Normal Range TR Vmax 3.3 m/sec - TR peak gradient 44 mmHg - RAP 8 mmHg - RVSP 52 mmHg -
[2017-10-10] MEDS: cefTRIAXone(*) 1 GM in NS 0.9% 50 ML* 50 ML IVPB SCH (17:32)
[2017-10-10] MEDS: Atorvastatin* 80 MG TAB PO SCH (20:16)
[2017-10-10] MEDS: Acetaminophen TAB* 325 MG PO PRN (20:17)
[2017-10-10] MEDS: Insulin GLARGINE(*) 1 UNITS UNIT SUBCUT SCH (20:18)
[2017-10-11 07:04] LABS: ABS Basophils 0 10^3/ul (0-0.2); ABS Eosinophils 0.2 10^3/ul (0-0.6); ABS Lymphocytes 1.1 10^3/ul (1.0-4.8); ABS Monocytes 0.4 10^3/ul (0-0.8); ABS Nucleated RBC 0 10^3/ul; Eosinophil % 2.6 % (0-6); Hematocrit 32 % (35-47); Hemoglobin 11.1 g/dl (12.0-16.0); Mean Corpuscular HGB Conc 34 g/dl (31-36); Mean Corpuscular Hemoglobin 30 pg (27-31); Mean Corpuscular Volume 88 fL (80-97); Mean Platelet Volume 8.3 um3 (7.4-10.4); Nucleated Red Blood Cells % 0; Platelet Count 105 10^3/ul (150-450); Red Blood Count 3.66 10^6/ul (4.00-5.40); Red Cell Distribution Width 16 % (10.5-15); White Blood Count 6.7 10^3/ul (3.5-10.8)
[2017-10-11] MEDS: Insulin LISPRO* 1 UNITS UNIT SUBCUT SCH ×4 (08:14→21:08)
--- NOTE | 2017-10-11 09:33 | PN ---
Subjective Date of Service: 10/11/17 Interval History: Patient seen and examined at bedside. Denies fever, chills, shortness of breath , chest discomfort, N/V/D. Pt states that she is feeling much better since her admission. Family History: Unchanged from Admission Social History: Unchanged from Admission Past Medical History: Unchanged from Admission Objective Active Medications: Acetaminophen (Tylenol Tab*) 650 mg PO Q6H PRN Reason: FEVER/PAIN Albuterol (Ventolin 2.5 Mg/3 Ml Neb.Tawana*) 2.5 mg INH Q2H PRN Reason: SOB/ WHEEZING Aspirin (Aspirin Ec Tab*) 81 mg PO DAILY [facility] Atorvastatin Calcium (Lipitor*) 80 mg PO BEDTIME [facility] Clopidogrel Bisulfate (Plavix Tab*) 75 mg PO DAILY [facility] Docusate Sodium (Colace Cap*) 200 mg PO BID [facility] Fondaparinux (Arixtra*) 7.5 mg SUBCUT DAILY [facility] Ceftriaxone Sodium 1 gm/ (Sodium Chloride) 50 mls @ 200 mls/hr IVPB Q24H [facility] Insulin Glargine (Lantus(*)) 22 units 0.24 units/kg (22 units) SUBCUT 2100 [facility] Insulin Human Lispro (Humalog*) 0 units SUBCUT ACHS ELIAS; Protocol Magnesium Oxide (Magox 400 Tab*) 400 mg PO BID [facility] Melatonin (Melatonin) 3 mg PO BEDTIME PRN; Protocol Reason: Sleep Metoprolol Tartrate (Lopressor Tab*) 50 mg PO BID [facility] Ondansetron HCl (Zofran Odt Tab*) 4 mg PO Q6H PRN Reason: n/v Pantoprazole Sodium (Protonix Tab (Nf)) 40 mg PO DAILY [facility] Sertraline HCl (Zoloft*) 50 mg PO DAILY [facility] Tramadol HCl (Ultram*) 50 mg PO Q8H PRN Reason: PAIN Vital Signs - 8 hr 10/11/17 10/11/17 10/11/17 03:31 03:40 08:24 Temperature 98.2 F 98.4 F Pulse Rate 64 67 Respiratory 16 18 Rate Blood Pressure 124/49 134/45 (mmHg) O2 Sat by Pulse 98 96 100 Oximetry 10/11/17 08:59 Temperature Pulse Rate 81 Respiratory 18 Rate Blood Pressure (mmHg) O2 Sat by Pulse 96 Oximetry Oxygen Devices in Use Now: None Appearance: NAD, sitting up in a chair Ears/Nose/Mouth/Throat: Mucous Membranes Moist Respiratory: Symmetrical Chest Expansion and Respiratory Effort, Clear to Auscultation Cardiovascular: NL Sounds; No Murmurs; No JVD, RRR Abdominal: NL Sounds; No Tenderness; No Distention Extremities: No Edema Skin: No Rash or Ulcers Neurological: Alert and Oriented x 3, NL Muscle Strength and Tone Lines/Tubes/Other Access: Clean, Dry and Intact Gonzales - patent, draining clear yellow urine, Clean, Dry and Intact Peripheral IV - site benign Nutrition: Taking PO's Result Diagrams: 10/11/17 06:47 10/10/17 05:49 Additional Lab and Data: . Microbiology and Other Data: Microbiology 10/07/17 21:39 Aerobic Blood Culture - Final Blood Venous Strep Dysgalac (Strep Equisim) Anaerobic Blood Culture - Final Strep Dysgalac (Strep Equisim) 10/07/17 21:39 Aerobic Blood Culture - Final Blood Venous Strep Dysgalac (Strep Equisim) Anaerobic Blood Culture - Final Strep Dysgalac (Strep Equisim) 10/08/17 12:21 Legionella Urinary Antigen - Final Urine Negative Legionella Antigen Streptococcus pneumoniae Ag Screen - Final Negative S. pneumo Antigen Assess/Plan/Problems-Billing Assessment: Ms. Collins is a 76 yo female with PMH significant for CAD s/p CABG, P vtach, ischemic cardiomyopathy lat EF 40-45%, PAOD, DM, DVT, HTN, hypothyroid, and depression who presented to the emergency room with complaints of chills, nausea , and generalized malaise and was found to have PNA and bacteremia. - Patient Problems (1) Pneumonia Code(s): J18.9 - PNEUMONIA, UNSPECIFIED ORGANISM SNOMED Code(s): 869364489 Comment: - With associated sepsis (now resolved) and Strep dysgalae bacteremia - Afebrile and leukocytosis resolved - Urine antigens for s. pneumoniae and legionella - 4/4 culture bottles positive for Gram (+) cocci (Strep dysgalae), sensitive to ceftriaxone - RAYNA shows no vegitatoin - ID consult, appreciate input - Plan to continue ceftriaxone day 4/7, then D/C on PO Keflex (2) Afib Code(s): I48.91 - UNSPECIFIED ATRIAL FIBRILLATION SNOMED Code(s): 60581402 Comment: - Heart rate regular - Continue metoprolol and arixtra (3) Hx of coronary artery disease Code(s): Z86.79 - PERSONAL HISTORY OF OTHER DISEASES OF THE CIRCULATORY SYSTEM SNOMED Code(s): 520456937 Comment: - Asymptomatic - Continue ASA, plavix, metoprolol, and lipitor (4) HTN (hypertension) Code(s): I10 - ESSENTIAL (PRIMARY) HYPERTENSION SNOMED Code(s): 63517131 Comment: - Normotensive, SBP 100-130's - Continue metoprolol (5) Type II diabetes mellitus Comment: - Glucose 90-200's - Continue lispro SS and lantus (6) Depression Code(s): F32.9 - MAJOR DEPRESSIVE DISORDER, SINGLE EPISODE, UNSPECIFIED SNOMED Code(s): 37359450 Comment: - Continue sertraline (7) GERD (gastroesophageal reflux disease) Code(s): K21.9 - GASTRO-ESOPHAGEAL REFLUX DISEASE WITHOUT ESOPHAGITIS SNOMED Code(s): 460667182 Comment: - Continue omeprazole (8) PAD (peripheral artery disease) Code(s): I73.9 - PERIPHERAL VASCULAR DISEASE, UNSPECIFIED SNOMED Code(s): 411934966 Comment: - Continue plavix and ASA (9) History of ischemic cardiomyopathy Code(s): Z98.89 - OTHER SPECIFIED POSTPROCEDURAL STATES * DO NOT USE * SNOMED Code(s): 341083092 Comment: - Last EF 40-45% - Daily weights and strict I+O's - Continue ASA, Plavix, statins and Metoprolol - Continue to hold Lasix and KCl (10) Hx of deep venous thrombosis Code(s): Z86.718 - PERSONAL HISTORY OF OTHER VENOUS THROMBOSIS AND EMBOLISM SNOMED Code(s): 691327993 Comment: - Continue arixtra (11) Hx of heart artery stent Code(s): Z95.5 - PRESENCE OF CORONARY ANGIOPLASTY IMPLANT AND GRAFT SNOMED Code(s): 496464125 (12) Hx of ventricular tachycardia Code(s): Z86.79 - PERSONAL HISTORY OF OTHER DISEASES OF THE CIRCULATORY SYSTEM SNOMED Code(s): 814239725337500 Comment: - Has ICD (13) DVT prophylaxis Code(s): BWF4987 - SNOMED Code(s): 916731369 Comment: - Continue Arixtra (14) Full code status Code(s): Z78.9 - OTHER SPECIFIED HEALTH STATUS SNOMED Code(s): 024698638 Status and Disposition: Inpatient. Discharge to home when medically stable, she will need a few more days of IV ABX and then can be discharged on oral ABX.
[2017-10-11] MEDS: Aspirin EC TAB* 81 MG TAB.EC PO SCH (09:53)
[2017-10-11] MEDS: Docusate CAP* 100 MG PO SCH ×2 (09:53→21:07)
[2017-10-11] MEDS: Clopidogrel TAB* 75 MG PO SCH (09:53)
[2017-10-11] MEDS: Sertraline* 50 MG TAB PO SCH (09:53)
[2017-10-11] MEDS: CMCS:Pantoprazole TAB (NF) 40 MG TAB PO SCH (09:53)
[2017-10-11] MEDS: Magnesium Oxide TAB* 400 MG PO SCH ×2 (09:53→21:08)
[2017-10-11] MEDS: Fondaparinux* 7.5 MG/0.6 ML SYRINGE SUBCUT SCH (09:54)
[2017-10-11] MEDS: Metoprolol Tartrate TAB* 50 mg PO SCH ×2 (09:54→21:07)
--- NOTE | 2017-10-11 10:27 | PN ---
Progress Note - Progress Note Date of Service: 10/11/17 SOAP: Subjective: CC: bacteremia HPI: 76 year old woman with pacemaker and recent admission with fever, malaise, weakness found to have bacteremia. No fever, rash, or diarrhea. Appetite is good. Objective: Vital Signs Temp 36.9 C 10/11/17 08:24 Pulse 81 10/11/17 08:59 Resp 18 10/11/17 08:59 BP 134/45 10/11/17 08:24 Pulse Ox 96 10/11/17 08:59 Intake & Output 10/10/17 10/11/17 10/11/17 18:59 06:59 18:59 Intake Total 1518 680 Output Total 300 1000 Balance 1218 -320 Intake: IV Fluids 1278 ABX - CEFTRIAXONE 50 NS 1228 Oral 240 680 Output: Urine 400 Gonzales 300 600 Other: Date of Last Bowel unknown Movement # Bowel Movements 0 Estimated Stool Amount Small # Voids 1 Gen:awake, no distress HEENT: no thrush Heart:RRR no murmur Lungs:CTA BL Abd:+BS NTND soft Skin: no rash, no perianal or external vaginal erythema MSK: no spine or joint tenderness Laboratory Results - last 24 hr 10/10/17 10/10/17 10/11/17 17:14 20:05 06:47 WBC 6.7 RBC 3.66 L Hgb 11.1 L Hct 32 L MCV 88 MCH 30 MCHC 34 RDW 16 H Plt Count 105 L MPV 8.3 Neut % (Auto) 73.7 Lymph % (Auto) 17.0 L [place] % (Auto) 6.4 Eos % (Auto) 2.6 Baso % (Auto) 0.3 Absolute Neuts (auto) 5.0 Absolute Lymphs (auto) 1.1 Absolute Monos (auto) 0.4 Absolute Eos (auto) 0.2 Absolute Basos (auto) 0 Absolute Nucleated RBC 0 Nucleated RBC % 0 POC Glucose (mg/dL) 205 H 189 H 10/11/17 07:23 WBC RBC Hgb Hct MCV MCH MCHC RDW Plt Count MPV Neut % (Auto) Lymph % (Auto) [place] % (Auto) Eos % (Auto) Baso % (Auto) Absolute Neuts (auto) Absolute Lymphs (auto) Absolute Monos (auto) Absolute Eos (auto) Absolute Basos (auto) Absolute Nucleated RBC Nucleated RBC % POC Glucose (mg/dL) 94 Assessment: 1. Strep dysgalactiae susbsp equisimilis bacteremia , RAYNA no valve or lead vegetations 2. Community acquired pneumonia 3. presence of pacemaker 4. CAD s/p CABG Plan: 1.continue ceftriaxone day 07/28, then keflex 500 mg po tid for 7 days 2. SPEP, Ig levels pending 3. TELEHEALTH DIRECTOR eval apparently they can see as outpt
[2017-10-11] MEDS: cefTRIAXone(*) 1 GM in NS 0.9% 50 ML* 50 ML IVPB SCH (17:49)
[2017-10-11] MEDS: Acetaminophen TAB* 325 MG PO PRN (20:04)
[2017-10-11] MEDS: Atorvastatin* 80 MG TAB PO SCH (21:07)
[2017-10-11] MEDS: traMADol TAB* 50 MG PO PRN (21:08)
[2017-10-11] MEDS: Insulin GLARGINE(*) 1 UNITS UNIT SUBCUT SCH (21:09)
[2017-10-12] MEDS: Levothyroxine TAB* 25 MCG TAB PO SCH (05:24)
[2017-10-12] MEDS: Insulin LISPRO* 1 UNITS UNIT SUBCUT SCH ×4 (07:51→21:10)
[2017-10-12] MEDS: Sertraline* 50 MG TAB PO SCH (08:06)
[2017-10-12] MEDS: Clopidogrel TAB* 75 MG PO SCH (08:06)
[2017-10-12] MEDS: CMCS:Pantoprazole TAB (NF) 40 MG TAB PO SCH (08:06)
[2017-10-12] MEDS: Docusate CAP* 100 MG PO SCH ×2 (08:06→21:08)
[2017-10-12] MEDS: Metoprolol Tartrate TAB* 50 mg PO SCH ×2 (08:07→21:08)
[2017-10-12] MEDS: Magnesium Oxide TAB* 400 MG PO SCH ×2 (08:07→21:08)
[2017-10-12] MEDS: Fondaparinux* 7.5 MG/0.6 ML SYRINGE SUBCUT SCH (08:07)
[2017-10-12] MEDS: Aspirin EC TAB* 81 MG TAB.EC PO SCH (08:07)
--- NOTE | 2017-10-12 14:49 | PN ---
Subjective Date of Service: 10/12/17 Interval History: Patient seen and examined at bedside. Denies fever, chills, shortness of breath , chest discomfort, N/V/D. Pt states that she feels like she has gained weight while she has been here. She is up about 8 pounds since admission. Family History: Unchanged from Admission Social History: Unchanged from Admission Past Medical History: Unchanged from Admission Objective Active Medications: Acetaminophen (Tylenol Tab*) 650 mg PO Q6H PRN Reason: FEVER/PAIN Albuterol (Ventolin 2.5 Mg/3 Ml Neb.Tawana*) 2.5 mg INH Q2H PRN Reason: SOB/ WHEEZING Aspirin (Aspirin Ec Tab*) 81 mg PO DAILY [facility] Atorvastatin Calcium (Lipitor*) 80 mg PO BEDTIME [facility] Clopidogrel Bisulfate (Plavix Tab*) 75 mg PO DAILY [facility] Docusate Sodium (Colace Cap*) 200 mg PO BID [facility] Fondaparinux (Arixtra*) 7.5 mg SUBCUT DAILY [facility] Ceftriaxone Sodium 1 gm/ (Sodium Chloride) 50 mls @ 200 mls/hr IVPB Q24H [facility] Insulin Glargine (Lantus(*)) 22 units 0.24 units/kg (22 units) SUBCUT 2100 [facility] Insulin Human Lispro (Humalog*) 0 units SUBCUT ACHS EL[facility]; Protocol Levothyroxine Sodium (Synthroid Tab*) 25 mcg PO DAILY@0600 [facility] Magnesium Oxide (Magox 400 Tab*) 400 mg PO BID [facility] Melatonin (Melatonin) 3 mg PO BEDTIME PRN; Protocol Reason: Sleep Metoprolol Tartrate (Lopressor Tab*) 50 mg PO BID [facility] Ondansetron HCl (Zofran Odt Tab*) 4 mg PO Q6H PRN Reason: n/v Pantoprazole Sodium (Protonix Tab (Nf)) 40 mg PO DAILY [facility] Sertraline HCl (Zoloft*) 50 mg PO DAILY [facility] Tramadol HCl (Ultram*) 50 mg PO Q8H PRN Reason: PAIN Vital Signs - 8 hr 10/12/17 10/12/17 10/12/17 08:00 09:52 11:17 Temperature 97.6 F 97.6 F Pulse Rate 80 57 Respiratory 20 18 18 Rate Blood Pressure 108/40 134/42 (mmHg) O2 Sat by Pulse 100 100 Oximetry Oxygen Devices in Use Now: None Appearance: NAD, laying in bed Ears/Nose/Mouth/Throat: Mucous Membranes Moist Respiratory: Symmetrical Chest Expansion and Respiratory Effort, Clear to Auscultation Cardiovascular: NL Sounds; No Murmurs; No JVD, RRR Abdominal: NL Sounds; No Tenderness; No Distention Extremities: - - 1-2+ bilateral LE edema Skin: No Rash or Ulcers Neurological: Alert and Oriented x 3, NL Muscle Strength and Tone Lines/Tubes/Other Access: Clean, Dry and Intact Peripheral IV - site benign Nutrition: Taking PO's Result Diagrams: 10/11/17 06:47 10/10/17 05:49 Additional Lab and Data: . Microbiology and Other Data: Microbiology 10/07/17 21:39 Aerobic Blood Culture - Final Blood Venous Strep Dysgalac (Strep Equisim) Anaerobic Blood Culture - Final Strep Dysgalac (Strep Equisim) 10/07/17 21:39 Aerobic Blood Culture - Final Blood Venous Strep Dysgalac (Strep Equisim) Anaerobic Blood Culture - Final Strep Dysgalac (Strep Equisim) 10/08/17 12:21 Legionella Urinary Antigen - Final Urine Negative Legionella Antigen Streptococcus pneumoniae Ag Screen - Final Negative S. pneumo Antigen Assess/Plan/Problems-Billing Assessment: Ms. Collins is a 76 yo female with PMH significant for CAD s/p CABG, P vtach, ischemic cardiomyopathy lat EF 40-45%, PAOD, DM, DVT, HTN, hypothyroid, and depression who presented to the emergency room with complaints of chills, nausea , and generalized malaise and was found to have PNA and bacteremia. - Patient Problems (1) Pneumonia Code(s): J18.9 - PNEUMONIA, UNSPECIFIED ORGANISM SNOMED Code(s): 450996213 Comment: - With associated sepsis (now resolved) and Strep dysgalae bacteremia - Afebrile and leukocytosis resolved - Urine antigens for s. pneumoniae and legionella - 4/4 culture bottles positive for Gram (+) cocci (Strep dysgalae), sensitive to ceftriaxone - RAYNA shows no vegitatoin - ID consult, appreciate input - Plan to continue ceftriaxone day 5/7, then D/C on PO Keflex (2) Afib Code(s): I48.91 - UNSPECIFIED ATRIAL FIBRILLATION SNOMED Code(s): 80354398 Comment: - Heart rate regular - Continue metoprolol and arixtra (3) Hx of coronary artery disease Code(s): Z86.79 - PERSONAL HISTORY OF OTHER DISEASES OF THE CIRCULATORY SYSTEM SNOMED Code(s): 553368685 Comment: - Asymptomatic - Continue ASA, plavix, metoprolol, and lipitor (4) HTN (hypertension) Code(s): I10 - ESSENTIAL (PRIMARY) HYPERTENSION SNOMED Code(s): 98532627 Comment: - Normotensive, SBP 100-130's - Continue metoprolol (5) Type II diabetes mellitus Comment: - Glucose 100-190's - Continue lispro SS and lantus (6) Depression Code(s): F32.9 - MAJOR DEPRESSIVE DISORDER, SINGLE EPISODE, UNSPECIFIED SNOMED Code(s): 23623352 Comment: - Continue sertraline (7) GERD (gastroesophageal reflux disease) Code(s): K21.9 - GASTRO-ESOPHAGEAL REFLUX DISEASE WITHOUT ESOPHAGITIS SNOMED Code(s): 995597099 Comment: - Continue omeprazole (8) PAD (peripheral artery disease) Code(s): I73.9 - PERIPHERAL VASCULAR DISEASE, UNSPECIFIED SNOMED Code(s): 454145718 Comment: - Continue plavix and ASA (9) History of ischemic cardiomyopathy Code(s): Z98.89 - OTHER SPECIFIED POSTPROCEDURAL STATES * DO NOT USE * SNOMED Code(s): 683601569 Comment: - Last EF 40-45% - Daily weights and strict I+O's - Continue ASA, Plavix, statins and Metoprolol - Resume Lasix and KCl (10) Hx of deep venous thrombosis Code(s): Z86.718 - PERSONAL HISTORY OF OTHER VENOUS THROMBOSIS AND EMBOLISM SNOMED Code(s): 181446353 Comment: - Continue arixtra (11) Hx of heart artery stent Code(s): Z95.5 - PRESENCE OF CORONARY ANGIOPLASTY IMPLANT AND GRAFT SNOMED Code(s): 436230409 (12) Hx of ventricular tachycardia Code(s): Z86.79 - PERSONAL HISTORY OF OTHER DISEASES OF THE CIRCULATORY SYSTEM SNOMED Code(s): 466686784224220 Comment: - Has ICD (13) DVT prophylaxis Code(s): LAK8075 - SNOMED Code(s): 866537484 Comment: - Continue Arixtra (14) Full code status Code(s): Z78.9 - OTHER SPECIFIED HEALTH STATUS SNOMED Code(s): 021878386 Status and Disposition: Inpatient. Discharge to home when medically stable, she will need a few more days of IV ABX and then can be discharged on oral ABX.
[2017-10-12] MEDS: cefTRIAXone(*) 1 GM in NS 0.9% 50 ML* 50 ML IVPB SCH (17:22)
[2017-10-12] MEDS: Atorvastatin* 80 MG TAB PO SCH (21:08)
[2017-10-12] MEDS: Insulin GLARGINE(*) 1 UNITS UNIT SUBCUT SCH (21:10)
[2017-10-13] MEDS: Acetaminophen TAB* 325 MG PO PRN ×2 (01:17→09:33)
[2017-10-13] MEDS: Levothyroxine TAB* 25 MCG TAB PO SCH (06:08)
[2017-10-13 07:23] LABS: EGFR Non-African American 126.1 (>60)
[2017-10-13] MEDS: Insulin LISPRO* 1 UNITS UNIT SUBCUT SCH ×4 (08:01→20:41)
[2017-10-13] MEDS ORDERED: Furosemide TAB* 40 MG PO SCH (09:00)
[2017-10-13] MEDS: Docusate CAP* 100 MG PO SCH ×2 (09:32→22:03)
[2017-10-13] MEDS: Aspirin EC TAB* 81 MG TAB.EC PO SCH (09:33)
[2017-10-13] MEDS: Sertraline* 50 MG TAB PO SCH (09:33)
[2017-10-13] MEDS: Potassium Chlor TAB* 20 MEQ TAB.ER PO SCH ×3 (09:33→22:10)
[2017-10-13] MEDS: Fondaparinux* 7.5 MG/0.6 ML SYRINGE SUBCUT SCH (09:35)
[2017-10-13] MEDS: Magnesium Oxide TAB* 400 MG PO SCH ×2 (09:35→22:10)
[2017-10-13] MEDS: Clopidogrel TAB* 75 MG PO SCH (09:35)
[2017-10-13] MEDS: Furosemide TAB* 40 MG PO SCH (09:35)
[2017-10-13] MEDS: CMCS:Pantoprazole TAB (NF) 40 MG TAB PO SCH (09:35)
[2017-10-13] MEDS: Metoprolol Tartrate TAB* 50 mg PO SCH ×2 (09:35→22:10)
--- NOTE | 2017-10-13 11:32 | PN ---
Subjective Date of Service: 10/13/17 Interval History: Patient seen and examined at bedside. Denies fever, chills, shortness of breath , chest discomfort, N/V/D. Pt states that she is feeling well. Pt reports "bumps " in her groin that have been there for awhile, she plans to see ASSESSMENT SPECIALIST outpatient at discharge. Pt also reports continued bilateral LE edema but feels that her right LE is larger and she has pain just below her knee on the medial side of her LE near a past bypass scar. Family History: Unchanged from Admission Social History: Unchanged from Admission Past Medical History: Unchanged from Admission Objective Active Medications: Acetaminophen (Tylenol Tab*) 650 mg PO Q6H PRN Reason: FEVER/PAIN Albuterol (Ventolin 2.5 Mg/3 Ml Neb.Tawana*) 2.5 mg INH Q2H PRN Reason: SOB/ WHEEZING Aspirin (Aspirin Ec Tab*) 81 mg PO DAILY [facility] Atorvastatin Calcium (Lipitor*) 80 mg PO BEDTIME [facility] Clopidogrel Bisulfate (Plavix Tab*) 75 mg PO DAILY [facility] Docusate Sodium (Colace Cap*) 200 mg PO BID [facility] Fondaparinux (Arixtra*) 7.5 mg SUBCUT DAILY [facility] Furosemide (Lasix Tab*) 80 mg PO DAILY [facility] Ceftriaxone Sodium 1 gm/ (Sodium Chloride) 50 mls @ 200 mls/hr IVPB Q24H [facility] Insulin Glargine (Lantus(*)) 22 units 0.24 units/kg (22 units) SUBCUT 2100 [facility] Insulin Human Lispro (Humalog*) 0 units SUBCUT ACHS [facility]; Protocol Levothyroxine Sodium (Synthroid Tab*) 25 mcg PO DAILY@0600 [facility] Magnesium Oxide (Magox 400 Tab*) 400 mg PO BID [facility] Melatonin (Melatonin) 3 mg PO BEDTIME PRN; Protocol Reason: Sleep Metoprolol Tartrate (Lopressor Tab*) 50 mg PO BID [facility] Ondansetron HCl (Zofran Odt Tab*) 4 mg PO Q6H PRN Reason: n/v Pantoprazole Sodium (Protonix Tab (Nf)) 40 mg PO DAILY [facility] Potassium Chloride (Klor Con Er Tab*) 40 meq PO TID [facility] Sertraline HCl (Zoloft*) 50 mg PO DAILY [facility] Tramadol HCl (Ultram*) 50 mg PO Q8H PRN Reason: PAIN Vital Signs - 8 hr 10/13/17 10/13/17 10/13/17 03:50 07:37 08:00 Temperature 98.2 F Pulse Rate 65 Respiratory 18 18 Rate Blood Pressure 112/47 (mmHg) O2 Sat by Pulse 97 100 100 Oximetry 10/13/17 08:53 Temperature Pulse Rate 71 Respiratory 16 Rate Blood Pressure (mmHg) O2 Sat by Pulse 98 Oximetry Oxygen Devices in Use Now: None Appearance: NAD, sitting up in a chair Ears/Nose/Mouth/Throat: Mucous Membranes Moist Respiratory: Symmetrical Chest Expansion and Respiratory Effort, Clear to Auscultation Cardiovascular: NL Sounds; No Murmurs; No JVD, RRR Abdominal: NL Sounds; No Tenderness; No Distention Extremities: - - Bilateral LE edema Skin: - - Groin with redness and dry skin. Right buttock with open area. Neurological: Alert and Oriented x 3, NL Muscle Strength and Tone Lines/Tubes/Other Access: Clean, Dry and Intact Peripheral IV - site benign Nutrition: Taking PO's Result Diagrams: 10/11/17 06:47 10/13/17 06:52 Additional Lab and Data: . Microbiology and Other Data: Microbiology 10/07/17 21:39 Aerobic Blood Culture - Final Blood Venous Strep Dysgalac (Strep Equisim) Anaerobic Blood Culture - Final Strep Dysgalac (Strep Equisim) 10/07/17 21:39 Aerobic Blood Culture - Final Blood Venous Strep Dysgalac (Strep Equisim) Anaerobic Blood Culture - Final Strep Dysgalac (Strep Equisim) 10/08/17 12:21 Legionella Urinary Antigen - Final Urine Negative Legionella Antigen Streptococcus pneumoniae Ag Screen - Final Negative S. pneumo Antigen Assess/Plan/Problems-Billing Assessment: Ms. Collins is a 76 yo female with PMH significant for CAD s/p CABG, P vtach, ischemic cardiomyopathy lat EF 40-45%, PAOD, DM, DVT, HTN, hypothyroid, and depression who presented to the emergency room with complaints of chills, nausea , and generalized malaise and was found to have PNA and bacteremia. - Patient Problems (1) Pneumonia Code(s): J18.9 - PNEUMONIA, UNSPECIFIED ORGANISM SNOMED Code(s): 200867400 Comment: - With associated sepsis (now resolved) and Strep dysgalae bacteremia - Afebrile and leukocytosis resolved - Urine antigens for s. pneumoniae and legionella - 4/4 culture bottles positive for Gram (+) cocci (Strep dysgalae), sensitive to ceftriaxone - RAYNA shows no vegitatoin - ID consult, appreciate input - Plan to continue ceftriaxone day 6/7, then D/C on PO Keflex (2) Afib Code(s): I48.91 - UNSPECIFIED ATRIAL FIBRILLATION SNOMED Code(s): 65707076 Comment: - Heart rate regular - Continue metoprolol and arixtra (3) Hx of coronary artery disease Code(s): Z86.79 - PERSONAL HISTORY OF OTHER DISEASES OF THE CIRCULATORY SYSTEM SNOMED Code(s): 382423113 Comment: - Asymptomatic - Continue ASA, plavix, metoprolol, and lipitor (4) HTN (hypertension) Code(s): I10 - ESSENTIAL (PRIMARY) HYPERTENSION SNOMED Code(s): 86655479 Comment: - Normotensive, SBP 100-140's - Continue metoprolol (5) Type II diabetes mellitus Comment: - Glucose 60-180's - Continue lispro SS and lantus (decrease due to hypoglycemia this AM) (6) Depression Code(s): F32.9 - MAJOR DEPRESSIVE DISORDER, SINGLE EPISODE, UNSPECIFIED SNOMED Code(s): 05297948 Comment: - Continue sertraline (7) GERD (gastroesophageal reflux disease) Code(s): K21.9 - GASTRO-ESOPHAGEAL REFLUX DISEASE WITHOUT ESOPHAGITIS SNOMED Code(s): 860056996 Comment: - Continue omeprazole (8) PAD (peripheral artery disease) Code(s): I73.9 - PERIPHERAL VASCULAR DISEASE, UNSPECIFIED SNOMED Code(s): 319209143 Comment: - Continue plavix and ASA (9) History of ischemic cardiomyopathy Code(s): Z98.89 - OTHER SPECIFIED POSTPROCEDURAL STATES * DO NOT USE * SNOMED Code(s): 429757431 Comment: - Last EF 40-45% - Daily weights and strict I+O's - Continue ASA, Plavix, statins, Metoprolol, Lasix and KCl (10) Hx of deep venous thrombosis Code(s): Z86.718 - PERSONAL HISTORY OF OTHER VENOUS THROMBOSIS AND EMBOLISM SNOMED Code(s): 133358580 Comment: - C/O right LE swelling (slightly larger than left) and pain. Low suspicion for DVT with Pt being on arixtra, but will check doppler. - Continue arixtra (11) Hx of heart artery stent Code(s): Z95.5 - PRESENCE OF CORONARY ANGIOPLASTY IMPLANT AND GRAFT SNOMED Code(s): 264419410 (12) Hx of ventricular tachycardia Code(s): Z86.79 - PERSONAL HISTORY OF OTHER DISEASES OF THE CIRCULATORY SYSTEM SNOMED Code(s): 647994136356664 Comment: - Has ICD (13) DVT prophylaxis Code(s): ZOY7537 - SNOMED Code(s): 640100203 Comment: - Continue Arixtra (14) Full code status Code(s): Z78.9 - OTHER SPECIFIED HEALTH STATUS SNOMED Code(s): 158512020 Status and Disposition: Inpatient. Discharge to home when medically stable, she will need a few more days of IV ABX and then can be discharged on oral ABX.
[2017-10-13] MEDS: cefTRIAXone(*) 1 GM in NS 0.9% 50 ML* 50 ML IVPB SCH (18:15)
[2017-10-13] MEDS ORDERED: Insulin GLARGINE(*) 1 UNITS UNIT SUBCUT SCH (21:00)
[2017-10-13] MEDS: Atorvastatin* 80 MG TAB PO SCH (22:10)
[2017-10-14] MEDS: Levothyroxine TAB* 25 MCG TAB PO SCH (05:39)
--- NOTE | 2017-10-14 08:37 | PN ---
Subjective Date of Service: 10/14/17 Interval History: Patient seen and examined at bedside. Denies fever, chills, shortness of breath , chest discomfort, N/V/D. Pt states that she continues to have right LE pain, Pt states this is chronic. Pt states that her legs continue to be swollen, but she has only gotten 1 dose of lasix since it has been restarted. Pt states that she feels well and is anxious to get home. Family History: Unchanged from Admission Social History: Unchanged from Admission Past Medical History: Unchanged from Admission Objective Active Medications: Acetaminophen (Tylenol Tab*) 650 mg PO Q6H PRN Reason: FEVER/PAIN Albuterol (Ventolin 2.5 Mg/3 Ml Neb.Tawana*) 2.5 mg INH Q2H PRN Reason: SOB/ WHEEZING Aspirin (Aspirin Ec Tab*) 81 mg PO DAILY ELIAS Atorvastatin Calcium (Lipitor*) 80 mg PO BEDTIME ELIAS Clopidogrel Bisulfate (Plavix Tab*) 75 mg PO DAILY ELIAS Docusate Sodium (Colace Cap*) 200 mg PO BID ELIAS Fondaparinux (Arixtra*) 7.5 mg SUBCUT DAILY ELIAS Furosemide (Lasix Tab*) 80 mg PO DAILY ELIAS Ceftriaxone Sodium 1 gm/ (Sodium Chloride) 50 mls @ 200 mls/hr IVPB Q24H ELIAS Insulin Glargine (Lantus(*)) 18 units SUBCUT 2100 ELIAS Insulin Human Lispro (Humalog*) 0 units SUBCUT ACHS ELIAS; Protocol Levothyroxine Sodium (Synthroid Tab*) 25 mcg PO DAILY@0600 ELIAS Magnesium Oxide (Magox 400 Tab*) 400 mg PO BID ELIAS Melatonin (Melatonin) 3 mg PO BEDTIME PRN; Protocol Reason: Sleep Metoprolol Tartrate (Lopressor Tab*) 50 mg PO BID ELIAS Ondansetron HCl (Zofran Odt Tab*) 4 mg PO Q6H PRN Reason: n/v Pantoprazole Sodium (Protonix Tab (Nf)) 40 mg PO DAILY ELIAS Potassium Chloride (Klor Con Er Tab*) 40 meq PO TID ELIAS Sertraline HCl (Zoloft*) 50 mg PO DAILY ELIAS Tramadol HCl (Ultram*) 50 mg PO Q8H PRN Reason: PAIN Vital Signs - 8 hr 10/14/17 03:56 Temperature 98.4 F Pulse Rate 68 Respiratory 16 Rate Blood Pressure 128/45 (mmHg) O2 Sat by Pulse 97 Oximetry Oxygen Devices in Use Now: None Appearance: NAD, sitting up in a chair Ears/Nose/Mouth/Throat: Mucous Membranes Moist Respiratory: Symmetrical Chest Expansion and Respiratory Effort, Clear to Auscultation Cardiovascular: NL Sounds; No Murmurs; No JVD, RRR Abdominal: NL Sounds; No Tenderness; No Distention Extremities: - - 2+ bilateral LE edema Skin: No Rash or Ulcers, - - Pt with stage 2 pressure injury to inner right buttock (I didn't visualize this today) Neurological: Alert and Oriented x 3, NL Muscle Strength and Tone Lines/Tubes/Other Access: Clean, Dry and Intact Peripheral IV - site benign Nutrition: Taking PO's Result Diagrams: 10/11/17 06:47 10/13/17 06:52 Additional Lab and Data: . Microbiology and Other Data: Microbiology 10/07/17 21:39 Aerobic Blood Culture - Final Blood Venous Strep Dysgalac (Strep Equisim) Anaerobic Blood Culture - Final Strep Dysgalac (Strep Equisim) 10/07/17 21:39 Aerobic Blood Culture - Final Blood Venous Strep Dysgalac (Strep Equisim) Anaerobic Blood Culture - Final Strep Dysgalac (Strep Equisim) 10/08/17 12:21 Legionella Urinary Antigen - Final Urine Negative Legionella Antigen Streptococcus pneumoniae Ag Screen - Final Negative S. pneumo Antigen Assess/Plan/Problems-Billing Assessment: Ms. Collins is a 76 yo female with PMH significant for CAD s/p CABG, P vtach, ischemic cardiomyopathy lat EF 40-45%, PAOD, DM, DVT, HTN, hypothyroid, and depression who presented to the emergency room with complaints of chills, nausea , and generalized malaise and was found to have PNA and bacteremia. - Patient Problems (1) Pneumonia Code(s): J18.9 - PNEUMONIA, UNSPECIFIED ORGANISM SNOMED Code(s): 137757566 Comment: - With associated sepsis (now resolved) and Strep dysgalae bacteremia - Afebrile and leukocytosis resolved - Urine antigens for s. pneumoniae and legionella negative - 4/4 culture bottles positive for Gram (+) cocci (Strep dysgalae), sensitive to ceftriaxone. Repeat blood cultures with no growth on day 2 - RAYNA shows no vegitatoin - ID consult, appreciate input - Plan to continue ceftriaxone day 10/27, then D/C on PO Keflex (2) Afib Code(s): I48.91 - UNSPECIFIED ATRIAL FIBRILLATION SNOMED Code(s): 74570699 Comment: - Heart rate regular - Continue metoprolol and arixtra (3) Hx of coronary artery disease Code(s): Z86.79 - PERSONAL HISTORY OF OTHER DISEASES OF THE CIRCULATORY SYSTEM SNOMED Code(s): 834412442 Comment: - Asymptomatic - Continue ASA, plavix, metoprolol, and lipitor (4) HTN (hypertension) Code(s): I10 - ESSENTIAL (PRIMARY) HYPERTENSION SNOMED Code(s): 11219563 Comment: - Normotensive, SBP 100-140's - Continue metoprolol (5) Type II diabetes mellitus Comment: - Glucose 60-180's - Continue lispro SS and lantus (decrease due to hypoglycemia this AM) (6) Depression Code(s): F32.9 - MAJOR DEPRESSIVE DISORDER, SINGLE EPISODE, UNSPECIFIED SNOMED Code(s): 65799653 Comment: - Continue sertraline (7) GERD (gastroesophageal reflux disease) Code(s): K21.9 - GASTRO-ESOPHAGEAL REFLUX DISEASE WITHOUT ESOPHAGITIS SNOMED Code(s): 702140388 Comment: - Continue omeprazole (8) PAD (peripheral artery disease) Code(s): I73.9 - PERIPHERAL VASCULAR DISEASE, UNSPECIFIED SNOMED Code(s): 321928947 Comment: - Continue plavix and ASA (9) History of ischemic cardiomyopathy Code(s): Z98.89 - OTHER SPECIFIED POSTPROCEDURAL STATES * DO NOT USE * SNOMED Code(s): 511199450 Comment: - Last EF 40-45% - Daily weights and strict I+O's - Continue ASA, Plavix, statins, Metoprolol, Lasix and KCl (10) Hx of deep venous thrombosis Code(s): Z86.718 - PERSONAL HISTORY OF OTHER VENOUS THROMBOSIS AND EMBOLISM SNOMED Code(s): 248479957 Comment: - C/O right LE swelling (slightly larger than left) and pain. Low suspicion for DVT with Pt being on arixtra, but will check doppler if available this weekend. - Continue arixtra (11) Hx of heart artery stent Code(s): Z95.5 - PRESENCE OF CORONARY ANGIOPLASTY IMPLANT AND GRAFT SNOMED Code(s): 508365459 (12) Hx of ventricular tachycardia Code(s): Z86.79 - PERSONAL HISTORY OF OTHER DISEASES OF THE CIRCULATORY SYSTEM SNOMED Code(s): 513552824955593 Comment: - Has ICD (13) DVT prophylaxis Code(s): EHK7140 - SNOMED Code(s): 966112538 Comment: - Continue Arixtra (14) Full code status Code(s): Z78.9 - OTHER SPECIFIED HEALTH STATUS SNOMED Code(s): 119495578 Status and Disposition: Inpatient. Stable for discharge to home today.
[2017-10-14 09:22] VITALS: BP 111/51
[2017-10-14] MEDS: Docusate CAP* 100 MG PO SCH (09:22)
[2017-10-14] MEDS: Insulin LISPRO* 1 UNITS UNIT SUBCUT SCH ×2 (09:31→12:20)
[2017-10-14] MEDS: Fondaparinux* 7.5 MG/0.6 ML SYRINGE SUBCUT SCH (09:31)
[2017-10-14] MEDS: Clopidogrel TAB* 75 MG PO SCH (09:32)
[2017-10-14] MEDS: Sertraline* 50 MG TAB PO SCH (09:32)
[2017-10-14] MEDS: Furosemide TAB* 40 MG PO SCH (09:32)
[2017-10-14] MEDS: Aspirin EC TAB* 81 MG TAB.EC PO SCH (09:32)
[2017-10-14] MEDS: Metoprolol Tartrate TAB* 50 mg PO SCH (09:32)
[2017-10-14] MEDS: Potassium Chlor TAB* 20 MEQ TAB.ER PO SCH (09:32)
[2017-10-14] MEDS: CMCS:Pantoprazole TAB (NF) 40 MG TAB PO SCH (09:32)
[2017-10-14] MEDS: Magnesium Oxide TAB* 400 MG PO SCH (09:33)
--- NOTE | 2017-10-14 11:10 | RAD ---
INDICATION: Pain and swelling. COMPARISON: None TECHNIQUE: Duplex interrogation of the Lowerextremity was performed. FINDINGS: Deep veins: The common femoral, great saphenous, profunda femoris, proximal, mid, and distal deep femoral, popliteal, posterior tibial, and peroneal veins are patent. The distal femoral vein is seen only with color at this is likely related to body habitus. There is otherwise normal compressibility, augmentation, and phasic flow. Superficial veins: There are no findings of superficial thrombophlebitis. Popliteal fossa:There is no evidence of a popliteal cyst. Soft tissues:There are no soft tissue abnormalities. IMPRESSION: NO EVIDENCE OF ACUTE DEEP VENOUS THROMBOSIS.
[2017-10-14] MEDS ORDERED: cefTRIAXone(*) 1 GM in NS 0.9% 50 ML* 50 ML IVPB SCH (12:00)
--- NOTE | 2017-10-15 01:51 | DS ---
CC: Dr. Robert Ford; Dr. Daryl Ashford * DISCHARGE SUMMARY: DATE OF ADMISSION: 10/08/17 DATE OF DISCHARGE: 10/14/17 ATTENDING PHYSICIAN: Denis France MD * (dictated by Alexandrea Villagomez NP) PRIMARY CARE PROVIDER: Daryl Ashford MD PRIMARY DIAGNOSES: 1. Pneumonia. 2. Strep dysgalactiae bacteremia. 3. Sepsis, resolved. 4. Stage 2 pressure injury to right inner buttock. SECONDARY DIAGNOSES: 1. Atrial fibrillation. 2. History of coronary artery disease. 3. Hypertension. 4. Diabetes mellitus. 5. Depression. 6. Gastroesophageal reflux disease. 7. Peripheral arterial disease. 8. History of ischemic cardiomyopathy. 9. History of deep vein thrombosis. 10. History of coronary artery stent. 11. History of ventricular tachycardia, status post ICD placement. CONSULTATIONS WHILE IN THE HOSPITAL: Dr. Robert Ford with Infectious Disease. STUDIES WHILE IN THE HOSPITAL: 1. Chest x-ray from 10/07/17. Radiologist's impression: Elevation of the right hemidiaphragm consistent with diaphragmatic paralysis. Patchy airspace disease of the left lung base. Recommend followup until resolution to exclude underlying parenchymal pathology. 2. Transesophageal echocardiogram from 10/10/17. Flotation Operator's Conclusion: The left ventricular chamber size is normal. The estimated ejection fraction is 40% to 45%, global hypokinesis. The right ventricular global systolic function is low normal. A patent foramen ovale is demonstrated by color Doppler. No vegetation noted on the valves or the pacemaker wires. The aortic valve leaflets are mildly thickened with good excursion and function. There is mild mitral regurgitation, moderate tricuspid regurgitation. There is evidence of moderate pulmonary hypertension: 52 mmHg. There is plaque visualized in the aorta. 3. Right lower extremity venous Doppler from 10/14/17. Radiologist's impression: No evidence of acute deep vein thrombosis. DISCHARGE MEDICATIONS: New home medications: Keflex 500 mg oral 3 times daily for 7 days. Continued home medications: 1. Calcium carbonate 600 mg oral twice daily. 2. Atorvastatin 80 mg oral daily at bedtime. 3. Potassium chloride 40 mEq oral 3 times daily. 4. Multivitamin 1 tab oral daily. 5. Metoprolol tartrate 50 mg oral twice daily. 6. Furosemide 80 mg oral every morning. 7. Acetaminophen 1000 mg oral daily at bedtime. 8. Omeprazole 40 mg oral daily. 9. Aspirin 81 mg oral daily. 10. Hyoscyamine 0.125 mg oral 3 times daily. 11. Arixtra 7.5 mg subcutaneous daily. 12. Lactobacillus acidophilus 1 capsule oral twice daily. 13. Plavix 75 mg oral daily. 14. Magnesium oxide 400 mg oral twice daily. 15. Sertraline 50 mg oral daily. Changed home medication: Lantus insulin, decreased to 18 units subcutaneous daily at bedtime. HISTORY OF PRESENT ILLNESS/HOSPITAL COURSE: Ms. Collins is a 76-year-old female with past medical history significant for coronary artery disease, status post cardiac catheterization with stent placement in April 2017, two-vessel CABG, paroxysmal ventricular tachycardia, ischemic cardiomyopathy with EF 40% to 45%, peripheral arterial disease, status post right femoral bypass, insulin- dependent type 2 diabetes, history of right lower extremity DVT, and hypertension who presented to the emergency room after complaints of sudden onset of chills, nausea, and generalized malaise. While in the emergency room, the patient had a chest x-ray showing findings suggestive of left lower lobe pneumonia. The hospitalists were asked to evaluate the patient for admission. While in the hospital, the patient was treated initially with IV Levaquin for sepsis secondary to left lower lobe pneumonia. She had blood cultures and sputum cultures. She never produced a sputum culture. She had negative legionella and S. pneumonia antigens. Her blood cultures were positive 4/4 bottles for strep dysgalactiae. Repeat blood cultures on 10/12/17 showed no growth on day #2. Except for her initial fever in the emergency room, she was afebrile during her stay. She developed leukocytosis on her second day of admission that resolved during her stay. Her baseline anemia stayed stable at her baseline. Her glucoses were well controlled on decreased amounts of insulin , so her Lantus was decreased. The patient was seen in consultation by Dr. Robert Ford, who changed her antibiotics over to ceftriaxone with plans of 7 days of treatment and then to discharge on Keflex. She had a RAYNA showing no vegetation. During her stay, she also complained of right lower extremity pain near one of her femoral bypass healed incisions. She underwent venous Doppler of that leg showing no acute DVT. She had significant bilateral lower extremity edema during her stay secondary to her Lasix being held. This was restarted and the swelling started to improve. Ms. Collins is stable for discharge to home today. Vital signs are as follows: Temperature 98.2, heart rate 64, respiratory rate 14, O2 sat 95% on room air, blood pressure 111/51. DISCHARGE PLAN: Ms. Collins will be discharged to home. Activity as tolerated. In regards to her left lower lobe pneumonia with associated Strep dysgalactiae bacteremia, she will be continued on Keflex 500 mg 3 times daily for 7 more days after completing 7 days of IV ceftriaxone in the hospital. Her diabetes has been well managed with glucoses today at 60 to 180s on Lispro sliding scale and decreased Lantus coverage. For now, I recommend the patient being discharged home on Lantus 18 units at bedtime only. She was asked to monitor her glucoses and when she sees Dr. Ashford in followup, to report her glucoses as I suspect she will be eating differently than she has been here and her insulin will need to be increased. She has been normotensive. She will be continued on her home metoprolol. In regards to her coronary artery disease, she is asymptomatic. She will be continued on aspirin, Plavix, metoprolol, and Lipitor. For her atrial fibrillation, her heart rate is regular to auscultation. She is continued on metoprolol and Arixtra. For the patient's right lower extremity pain, she has no signs of a DVT, but does have a history of DVT and will be continued on Arixtra. The patient has a superficial stage 2 pressure injury to her right buttock. She has been encouraged to move and not stay on her buttock as to prevent further breakdown. The patient reported complaints of "bumps" in her groin. She has plans to follow up with [facility] outpatient and if Dr. Ashford's office would please assist the patient and making sure that she gets to the followup appointment and referral setup. The patient should be seen in followup by Dr. Ford in 1 to 2 weeks. She has been asked to call on Sunday morning for a followup. The patient should also be seen this week by Dr. Ashford. She has been asked to call his office in the morning to set up a followup appointment. The patient has been asked to return to the emergency room for any chest pain or shortness of breath. This is a summarized report of a complex medical history and hospital stay. For further details, please see the entire medical record. TIME SPENT: Time for this discharge was approximately 50 minutes, greater than half of that was spent with the patient discussing discharge plans and instructions. CONDITION ON DISCHARGE: Stable. ALEXANDREA LANGSTON NP [id number]/[facility] #: [id number] JEANETH
== END 2017-10-14 15:30 | disposition home or self-care (01) | DRG 871 ==
LOC: ED 20:05 → MED 10-08 01:20 → OBSVTOIN 10-08 14:00
PROVIDERS: ADMIT Hospitalist; ATTEND Internal Medicine
PROC: B246ZZ4 Ultrasonography of Right and Left Heart, Transesophageal (ICD-10-PCS; principal; 2017-10-10 10:00)
DX: A40.8 Other streptococcal sepsis (principal); J18.9 Pneumonia, unspecified organism; I47.2 Ventricular tachycardia; Q21.1 Atrial septal defect; L89.312 Pressure ulcer of right buttock, stage 2; I48.91 Unspecified atrial fibrillation; I25.10 Atherosclerotic heart disease of native coronary artery without angina pectoris; I11.9 Hypertensive heart disease without heart failure; F32.9 Major depressive disorder, single episode, unspecified; K21.9 Gastro-esophageal reflux disease without esophagitis; E11.42 Type 2 diabetes mellitus with diabetic polyneuropathy; I25.5 Ischemic cardiomyopathy; J98.6 Disorders of diaphragm; M79.661 Pain in right lower leg; E03.9 Hypothyroidism, unspecified; Z95.1 Presence of aortocoronary bypass graft; Z95.5 Presence of coronary angioplasty implant and graft; Z95.810 Presence of automatic (implantable) cardiac defibrillator; Z79.1 Long term (current) use of non-steroidal anti-inflammatories (NSAID); Z79.82 Long term (current) use of aspirin; Z79.4 Long term (current) use of insulin; Z79.899 Other long term (current) drug therapy; Z88.8 Allergy status to other drugs, medicaments and biological substances; Z86.718 Personal history of other venous thrombosis and embolism; Z87.891 Personal history of nicotine dependence; Z82.49 Family history of ischemic heart disease and other diseases of the circulatory system; Z83.3 Family history of diabetes mellitus
CPT/HCPCS: 36415; 71046; 80048; 80053; 81003; 83036; 83605; 83735; 84100; 84484; 85025; 85060; 85610; 85730; 87040; 87077; 87186; 87205; 87899; 93005; 93312; 93325; 99156; 99157; 99283; A9270-GY; J0696; J1200; J1885; J2250; J2310; J2765; J3010; J3475

== ENCOUNTER 2017-11-05 11:28 | Emergency (ER) | payer MEDICARE, BC ==
--- NOTE | 2017-11-05 12:20 | ED ---
GI/ HPI - HPI Summary HPI Summary: 76-year-old female presents with a hematoma to right lower quadrant since yesterday. She denies any injury. She is on Fondaparinux. She denies any blood or sore dark tarry stool. No nausea no vomiting. No diarrhea constipation. No pains urination. This has never happened before. She denies any previous surgeries. She is on fondaparinux for DVT. She states that she has been injecting her stomach but has not been injecting in that area with the medication. - History of Current Complaint Chief Complaint: EDAbdPain Time Seen by Provider: 11/05/17 12:04 Stated Complaint: POSS ABD HEMATOMA/FIVE STAR Hx Last Menstrual Period: N/A Pain Intensity: 0 - Additional Pertinent History Primary Care Physician: SID - Allergy/Home Medications Allergies/Adverse Reactions: Allergies Allergy/AdvReac Type Severity Reaction Status Date / Time rivaroxaban [From Xarelto] Allergy Bleeding Verified 11/05/17 11:32 PMH/Surg Hx/FS Hx/Imm Hx Endocrine/Hematology History: Reports: Hx Anticoagulant Therapy - arixtra, Hx Diabetes Denies: Hx Thyroid Disease Cardiovascular History: Reports: Hx Angina, Hx Auto Implanted Cardiovert Defib, Hx Cardiac Arrest, Hx Coronary Artery Disease, Hx Deep Vein Thrombosis, Hx Hypercholesterolemia, Hx Hypertension, Hx Pacemaker/ICD - 2005, Hx Peripheral Vascular Disease, Other Cardiovascular Problems/Disorders - VT with VF ICD going off Denies: Hx Congestive Heart Failure Respiratory History: Denies: Other Respiratory Problems/Disorders GI History: Reports: Hx Gastrointestinal Bleed History: Reports: Hx Kidney Stones - IN THE PAST Denies: Hx Renal Disease Musculoskeletal History: Reports: Hx Arthritis Sensory History: Reports: Hx Cataracts, Hx Contacts or Glasses - Glasses, Hx Hearing Aid - right side, Hx Hearing Problem - Bilateral hearing loss Opthamlomology History: Reports: Hx Cataracts, Hx Contacts or Glasses - Glasses Neurological History: Denies: Hx Dementia, Hx Developmental Delay, Hx Headaches Psychiatric History: Reports: Hx Anxiety, Hx Depression - Cancer History Hx Chemotherapy: No Hx Radiation Therapy: No - Surgical History Surgery Procedure, Year, and Place: pacer;. cabg';. right leg bypass;. c section;. 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 Denies: Traveled Outside the [place] in Last 30 Days - Family History Known Family History: Positive: Cardiac Disease, Other - Patient denies relevant FHx - Social History Alcohol Use: None Substance Use Type: Reports: None Smoking Status (MU): Former Smoker Type: Cigarettes Amount Used/How Often: 1-2 PPD Length of Time of Smoking/Using Tobacco: 39 YEARS Have You Smoked in the Last Year: No Review of Systems Negative: Fever Negative: Chest Pain Negative: Shortness Of Breath Positive: Abdominal Pain Positive: Bruising All Other Systems Reviewed And Are Negative: Yes Physical Exam Triage Information Reviewed: Yes Vital Signs On Initial Exam: Initial Vitals Temp Pulse Resp BP Pulse Ox 98.2 F 69 16 96/80 100 11/05/17 11:31 11/05/17 11:31 11/05/17 11:31 11/05/17 11:31 11/05/17 11:31 Vital Signs Reviewed: Yes Appearance: Positive: Well-Appearing Skin: Positive: Warm, Dry Head/Face: Positive: Normal Head/Face Inspection Eyes: Positive: Normal, Conjunctiva Clear ENT: Positive: Pharynx normal Respiratory/Lung Sounds: Positive: Clear to Auscultation, Breath Sounds Present Cardiovascular: Positive: Normal, RRR Abdomen Description: Positive: Soft, Other: - large hematoma to RLQ, tenderness over hematoma Bowel Sounds: Positive: Present Musculoskeletal: Positive: Normal Neurological: Positive: Normal Psychiatric: Positive: Normal Diagnostics - Vital Signs Vital Signs Temp Pulse Resp BP Pulse Ox 11/05/17 11:31 98.2 F 69 16 96/80 100 - Laboratory Result Diagrams: 11/05/17 12:14 11/05/17 12:14 Lab Statement: Any lab studies that have been ordered have been reviewed, and results considered in the medical decision making process. - CT abd CT Interpretation: Positive (See Comments) - IMPRESSION: Subcutaneous hematoma in the right lower quadrant just adjacent to the right iliac crest measuring 3.5 x 6.4 x 4.5 cm. No intra-abdominal masses or fluid collections are noted. CT Interpretation Completed By: Radiologist MARKIE Course/Dx - Course Course Of Treatment: 76-year-old female presents with a hematoma to right lower quadrant since yesterday. She denies any injury. She is on Fondaparinux. She denies any blood or sore dark tarry stool. No nausea no vomiting. No diarrhea constipation. No pains urination. This has never happened before. She denies any previous surgeries. She is on fondaparinux for DVT. She states that she has been injecting her stomach but has not been injecting in that area with the medication. On exam has 8 cm x 5 cm hematoma on the right lower quadrant. Tender to palpation. hemoglobin is 11.7 which is better than previous. inr and aptt are normal. ct shows superficial hematoma. discussed with dr shell. told to place heat and compression on area. patient understand and agrees with plan. - Diagnoses Differential Diagnoses - Female: Appendicitis, Other - Hematoma, intra- abdominal bleed Provider Diagnoses: Abdominal hematoma Discharge - Sign-Out/Discharge Documenting (check all that apply): Patient Departure - Discharge Plan Condition: Good Disposition: HOME Patient Education Materials: Hematoma (ED) Referrals: Daryl Ashford MD [Primary Care Provider] - Additional Instructions: place heat on area place compression on area Take Tylenol every 6 hours as needed for pain Follow up with primary within 5 days Return to ED if develop any new or worsening symptoms - Billing Disposition and Condition Condition: GOOD Disposition: Home
[2017-11-05 12:23] LABS: ABS Basophils 0 10^3/ul (0-0.2); ABS Eosinophils 0.2 10^3/ul (0-0.6); ABS Lymphocytes 1.6 10^3/ul (1.0-4.8); ABS Monocytes 0.4 10^3/ul (0-0.8); ABS Nucleated RBC 0 10^3/ul; Eosinophil % 3.1 % (0-6); Hematocrit 35 % (35-47); Hemoglobin 11.7 g/dl (12.0-16.0); Lymphocyte % 30.3 % (25-47); Mean Corpuscular HGB Conc 33 g/dl (31-36); Mean Corpuscular Hemoglobin 29 pg (27-31); Mean Corpuscular Volume 88 fL (80-97); Mean Platelet Volume 8.5 um3 (7.4-10.4); Nucleated Red Blood Cells % 0.1; Platelet Count 139 10^3/ul (150-450); Red Blood Count 3.98 10^6/ul (4.00-5.40); Red Cell Distribution Width 15 % (10.5-15); White Blood Count 5.2 10^3/ul (3.5-10.8)
[2017-11-05 12:34] LABS: INR 0.98 (0.77-1.02)
[2017-11-05 12:54] LABS: EGFR Non-African American 82.9 (>60)
[2017-11-05] MEDS ORDERED: Iodixanol* (CONTRAST) 320 MG/ML 100 ML SDV IV ONE (13:03)
--- NOTE | 2017-11-05 13:41 | RAD ---
Indication: Right lower quadrant hematoma. Administered 100.0 ml of VISAPAQUE 320 mg/ml CT of the abdomen and pelvis was performed after IV contrast administration. No oral contrast was given. Coronal and sagittal reconstructed images were obtained. Comparison is made with previous exam dated April 16, 2017. The lung bases demonstrate no pleural fluid, nodules or masses. Heart is enlarged. No pericardial effusion is noted. Pacemaker leads are in place. Liver is normal in size. No focal lesions or intrahepatic duct dilatation is noted. The spleen is normal in size. The pancreas demonstrates no mass or pancreatic duct dilatation although appears to be somewhat atrophic. No adrenal masses are noted. The kidneys demonstrate symmetric nephrograms without focal lesions. Aorta and inferior vena cava are unremarkable. Atherosclerotic aorta is noted. No dilated loops of bowel are noted. The urinary bladder is unremarkable. No hernias are noted. In the right lower quadrant there is a lobulated structure measuring 3.5 cm in length x 0.4 cm in width x 4.5 cm in AP dimension. This is consistent with a superficial hematoma. Small inguinal lymph nodes are noted. Pelvic ring is intact. The urinary bladder is unremarkable. Colon is filled with stool. IMPRESSION: Subcutaneous hematoma in the right lower quadrant just adjacent to the right iliac crest measuring 3.5 x 6.4 x 4.5 cm. No intra-abdominal masses or fluid collections are noted. Patient is status post cholecystectomy.
[2017-11-05 14:05] VITALS: BP 142/69
== END 2017-11-05 14:05 | disposition home or self-care (01) ==
LOC: ED 11:28
DX: M79.81 Nontraumatic hematoma of soft tissue (principal); Z86.718 Personal history of other venous thrombosis and embolism; Z79.01 Long term (current) use of anticoagulants; Z90.49 Acquired absence of other specified parts of digestive tract; Z95.0 Presence of cardiac pacemaker; Z95.1 Presence of aortocoronary bypass graft; Z95.828 Presence of other vascular implants and grafts; Z87.891 Personal history of nicotine dependence; Z88.8 Allergy status to other drugs, medicaments and biological substances
CPT/HCPCS: 36415; 74177; 80053; 85025; 85610; 85730; 86140; 99282; Q9967

== ENCOUNTER → 2018-02-04 07:40 | Day surgery (SDC) | payer MEDICARE, BC ==
[~2018-02-04 07:40] MED LIST changes: +Diazepam TAB(*) 5 MG ONE; +Lidocaine 1% INJ* 10 MG/ML 30 ML SDV ONE; +Midazolam* 1 MG/ML 5 ML VIAL (5 MG) ONE; -Ondansetron ODT TAB* 4 MG PO PRN; +ceFAZolin VIAL 1 GM in NS *SYRINGE * * 10 ML ONE; +ceFAZolin* 2 GM* ONE DOSE (Duplex) IVPB; +fentaNYL* 50 MCG/ML 2 ML VIAL (100 MCG VIAL) ONE
--- NOTE | 2018-02-06 15:47 | OP ---
DATE OF OPERATION: 02/04/18 - [facility] CATH DATE OF : 42 SURGEON: Vinicio Justin MD. ANESTHESIA: Local anesthesia with conscious sedation. PRE-OP DIAGNOSIS: ICD at elective replacement indicator. POST-OP DIAGNOSIS: ICD at elective replacement indicator. OPERATIVE PROCEDURE: Single chamber ICD generator change. ESTIMATED BLOOD LOSS: Nil. COMPLICATIONS: None. INDICATIONS: The patient is a 77-year-old female with history of cardiomyopathy , who had an ICD placed in 2010. The patient has been followed by Dr. Barba. The patient's ICD has reached elective replacement indicator and generator change is recommended. DESCRIPTION OF PROCEDURE: The patient was brought to the operating room in a fasting state. Informed consent had been obtained prior to the procedure. All labs had been reviewed. The patient was placed supine on the procedure table. Her left deltopectoral was cleaned and draped in the usual fashion. 1% lidocaine was used for local anesthesia. A 4 cm incision was made at the superior aspect of the ICD and blunt dissection was carried down to the fibrous sheath. The fibrous sheath was opened and the generator was removed from the pocket. The generator was detached from the ventricular lead. A new generator was attached to the ventricular ICD lead. The new generator is a Medtronic model [id number], serial #[id number]. The device was placed into the pocket. The surgical incision was closed in three layers. Before sterile field was broken, the device was interrogated and noted to be functioning normally. The explanted device is a Medtronic model [id number], serial #[id number]. The patient was returned to holding area in stable condition. [id number]/[facility] #: [id number] [facility]
== END | disposition home or self-care (01) ==
LOC: CHICATH 07:40
PROVIDERS: ATTEND Specialist
DX: I49.01 Ventricular fibrillation (principal); Z95.0 Presence of cardiac pacemaker; I25.10 Atherosclerotic heart disease of native coronary artery without angina pectoris; Z79.82 Long term (current) use of aspirin; Z79.899 Other long term (current) drug therapy; E11.9 Type 2 diabetes mellitus without complications; I10 Essential (primary) hypertension; Z95.1 Presence of aortocoronary bypass graft; E78.00 Pure hypercholesterolemia, unspecified; Z87.891 Personal history of nicotine dependence
CPT/HCPCS: 33249; 88300; 99156; A9270-GY; C1722; J0690; J2250; J3010

== ENCOUNTER 2018-04-07 12:15 | Observation (INO) | payer MEDICARE, BC ==
--- OUTSIDE RECORDS SUMMARY | 2018-04-07 12:24 | XMS REPORT | Continuity of Care Document ---
:1940 External Reference #:[id number] Author Name SpencerSuze Care Team Providers Name Role Phone Daryl Ashford MD Primary Care Physician Unavailable Payers Type Date Identification Numbers Payment Provider Subscriber Policy Number: [id number] Medicare Elisabeth Collins PayID: [id number] [address] [place] [address] Policy [address]: [id number] [facility] Elisabeth Collins PayID: [id number] [address] [place] [address] Advance Directives Description No Information Available Problems Date Description Provider Status Onset: 09/10/2013 [...] mellitus Johanny Barba M.D. 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 Active bypass graft Onset: 01/28/2016 Chronic ischemic heart disease Johanny Barba M.D. Active Onset: 04/30/2017 Encounter for planned postprocedural Hunter Gill M.D., [facility], Active wound closure FSCAI Onset: 05/10/2017 Acute subendocardial infarction Johanny Barba M.D. Active Onset: 05/10/2017 Ventricular fibrillation Johanny Barba M.D. Active Onset: 05/10/2017 Paroxysmal atrial fibrillation Johanny Barba M.D. Active Family History Date Family Member(s) Problem(s) Comments Father Cerebrovascular Accident (CVA) Mother Coronary Artery Disease (CAD) age 54 CAD Siblings 1 Sister aneurism, thoracic Social History Type Date Description Comments Sex Unknown Marital Status Occupation Retired Tobacco Use Start: Unknown End: Former Cigarette Smoker Pt denies ever Unknown smoking pipe, cigar, e-cigarettes, or using chewing tobacco. Smoking Status Reviewed: 04/04/18 Former Cigarette Smoker Pt denies ever smoking pipe, cigar, e-cigarettes, or using chewing tobacco. ETOH Use Never used alcohol Tobacco Use Start: Unknown End: Patient is a former quit in 1998 Unknown smoker Recreational Drug Use Denies Drug Use Exercise Type/Frequency Exercises regularly PT through visiting nurse and walking Allergies, Adverse Reactions, Alerts Date Description Reaction Status Severity Comments 02/08/2015 Xarelto Bloody Stools Active Moderate 09/10/2013 NKDA Inactive Medications Medication Date Status Form Strength Qnty SIG Indications Ordering Provider Citalopram 02/12/ Active Tablets 10mg 90tab 1 by mouth Nathalia Castro Hydrobromide 2017 s every day Yaw Cuadra Clopidogrel 04/29/ Active Tablets 75mg 90tab 1 by mouth Hunter Bisulfate 2017 s every day Cady Gill, [facility], [facility] Magnesium Oxide 04/29/ Active Tablets 400mg 30tab 1 by mouth Hunter 2017 s twice rufus Gill M.D., [facility], [facility] Lipitor / Active Tablets 80mg 30tab 1 by mouth Unknown 0000 s every night at bedtime Metoprolol / Active 50mg 1 tablet Unknown 0000 po bid Lasix / Active Tablets 40mg 90tab 2.5 by Unknown 0000 s mouth every day Potassium Chloride / Active Tablets 20Meq 90tab 2 tablets Unknown ER 0000 ER s by mouth am, 2 tablets at noon and 2 tablet pm (6 total per day) Aspirin / Active Tablets 81mg 1 by mouth Unknown 0000 every day Multivitamins / Active Capsules 90cap 1 capsule Unknown 0000 s daily Calcium / Active 600mg 2 po qd Unknown 0000 Tylenol / Active Tablets 325mg as needed Unknown 0000 (pt usually take 2 before bed every night) Lantus / Active Solution 100Unit/M 25 unit in Unknown 0000 L the am, 25in the PM, based on BS. Fondaparinux / Active Solution 7.5mg/0.6 1 Unknown Sodium 0000 ML injection lower abdomen daily Omeprazole / Active Capsules 40mg 1 by mouth Unknown 0000 DR every day Probiotic / Active Tablets 1 tab bid Unknown [address] DR Nitrostat / Active Tablets 0.4mg one sl Unknown 0000 Sub q5min up to 3 doses as needed Levothyroxine / Active Tablets 25mcg 1 by mouth Unknown Sodium 0000 every day ( 1/2 hr 1 hour before break) Chlordiazepoxide / Active Capsules 5-2.5mg 1 cap Breiman, HCL/Clidinium 0000 three Daryl [place] times day MD ( morning, noon, night) Keflex 02/12/ Hx Capsules 250mg 3 times a [place] 2017 - day for 3 D. Brand, .D2017 Keflex 02/04/ Hx Capsules 250mg 9caps 3 times a [place] 2017 - day for 3 D. Brand, .D2017 Cyclobenzaprine 08/11/ Hx Tablets 5mg Johanny HCL 2013 - [place], M.D. 2014 Niaspan / Hx Tablets 500mg 30tab 1 by mouth Unknown 0000 - s bid (pt 10/18/ not 2018 taking) Arixtra / Hx 10ml injection Unknown 0000 [...] 0000 - bs every day 2014 Hyoscyamine 00/ Hx Tablets 0.125mg 1 tab Unknown Sulfate 0000 - every day 2016 Sertraline HCL / Hx Tablets 50mg 1 by mouth Unknown 0000 - every day 2017 Ceftriaxone Sodium / Hx Solution 2gm 2 grams Unknown 0000 - Rec daily iv home 2018 infusion ending 05/03/17 Hyoscyamine / Hx Tablets 0.125mg 1 by mouth Unknown Sulfate 0000 - Sub three 04/03/ times per 2018 day Fluconazole 00/ Hx Tablets 150mg once daily Breiman, 0000 - x 3 days Daryl 2018 Nystatin / Hx Cream [id number] Chris, 0000 - t/GM Tonja Wilson 06/05/ N.P. 2018 Nystatin / Hx Powder [id number] topical Unknown 0000 - t/GM twice a day as 2018 needed Cephalexin / Hx Capsules 500mg Take One Unknown 0000 - Capsule By Mouth 2018 Three Times A Day For Seven Days Immunizations Description No Information Available Vital Signs Date Vital Result Comment 04/04/2018 2:18pm Height 64.5 inches 5'4.50" Heart Rate 66 /min BP Systolic Sitting 100 mmHg Lue reg cuff BP Diastolic Sitting 64 mmHg Lue reg cuff BP Systolic Standing 100 mmHg Lue reg cuff BP Diastolic Standing 70 mmHg Lue reg cuff Respiratory Rate 16 /min Ejection Fraction 45-50% date 08/20/17 ECHO 02/12/2018 8:11am Height 64.5 inches 5'4.50" Weight 198.00 lb with shoes Heart Rate 64 /min BP Systolic Sitting 120 mmHg lue reg cuff BP Diastolic Sitting 72 mmHg lue reg cuff BP Systolic Standing 122 mmHg lue reg cuff BP Diastolic Standing 70 mmHg lue reg cuff Respiratory Rate 16 /min BMI (Body Mass Index) 33.5 kg/m2 Ejection Fraction 40-45% Aurelio o10/10/2017 01/25/2018 8:03am Height 64.5 inches 5'4.50" Weight 198.00 lb fully dressed with shoes Heart Rate 92 /min BP Systolic Sitting 130 mmHg BP Diastolic Sitting 68 mmHg BP Systolic Standing 125 mmHg BP Diastolic Standing 70 mmHg Respiratory Rate 16 /min Pain Level 0 O2 % BldC Oximetry 95 % BMI (Body Mass Index) 33.5 kg/m2 11/02/2017 8:27am Height 64.5 inches 5'4.50" Weight 192.38 lb Heart Rate 60 /min BP Systolic Sitting 128 mmHg BP Diastolic Sitting 78 mmHg Respiratory Rate 14 /min Body Temperature 97.0 F BMI (Body Mass Index) 32.5 kg/m2 10/19/2017 11:47am Height 64.5 inches 5'4.50" Weight 192.00 lb Heart Rate 60 /min BP Systolic Sitting 124 mmHg BP Diastolic Sitting 80 mmHg Respiratory Rate 14 /min Body Temperature 97.3 F BMI (Body Mass Index) 32.4 kg/m2 07/26/2017 2:18pm Height 64.5 inches 5'4.50" Weight 193.00 lb with shoes Heart Rate 60 /min BP Systolic Sitting 108 mmHg Rue lrg cuff BP Diastolic Sitting 68 mmHg Rue lrg cuff Respiratory Rate 14 /min BMI (Body Mass Index) 32.6 kg/m2 Ejection Fraction 40-45% 04/18/2017-echo 06/06/2017 10:04am Height 64.5 inches 5'4.50" Heart Rate 60 /min BP Systolic Sitting 142 mmHg BP Diastolic Sitting 80 mmHg Respiratory Rate 14 /min Body Temperature 97.1 F 05/17/2017 2:03pm Height 64.5 inches 5'4.50" Weight 193.38 lb Heart Rate 60 /min BP Systolic Sitting 148 mmHg BP Diastolic Sitting 64 mmHg Respiratory Rate 14 /min Body Temperature 96.9 F BMI (Body Mass Index) 32.7 kg/m2 05/10/2017 12:44pm Height 64.5 inches 5'4.50" Weight 188.00 lb Heart Rate 68 /min BP Systolic Sitting 124 mmHg Lue large cuff BP Diastolic Sitting 72 mmHg Lue large cuff BP Systolic Standing 110 mmHg Lue BP Diastolic Standing 64 mmHg Lue Respiratory Rate 16 /min BMI (Body Mass Index) 31.8 kg/m2 Ejection Fraction 40-45% 04/18/17 04/30/2017 2:35pm Height 64.5 inches 5'4.50" Weight 191.00 lb w/ shoes Heart Rate 74 /min BP Systolic Sitting 122 mmHg lue reg cuff BP Diastolic Sitting 64 mmHg lue reg cuff BP Systolic Standing 122 mmHg lue reg cuff BP Diastolic Standing 64 mmHg lue reg cuff Respiratory Rate 18 /min BMI (Body Mass Index) 32.3 kg/m2 Ejection Fraction 40-45% echo 04/24/17 01/26/2017 10:05am Height 64.5 inches 5'4.50" Weight 195.00 lb w shoes and light jacket Heart Rate 60 /min BP Systolic Sitting 102 mmHg rue large cuff BP Diastolic Sitting 60 mmHg rue large cuff Respiratory Rate 18 /min BMI (Body Mass Index) 33.0 kg/m2 Ejection Fraction 40-45% echo 08/28/13 01/28/2016 8:11am Height 64.5 inches 5'4.50" Weight 204.00 lb Heart Rate 60 /min BP Systolic Sitting 114 mmHg left arm, large cuff BP Diastolic Sitting 62 mmHg left arm, large cuff BP Systolic Standing 112 mmHg left arm, large cuff BP Diastolic Standing 60 mmHg left arm, large cuff Respiratory Rate 16 /min BMI (Body Mass Index) 34.5 kg/m2 Ejection Fraction 40-45% 08/28/13 02/08/2015 8:14am Height 64.5 inches 5'4.50" Weight 209.00 lb w/o shoes Heart Rate 60 /min reg BP Systolic Sitting 116 mmHg Rue, lg cuff BP Diastolic Sitting 60 mmHg Rue, lg cuff BP Systolic Standing 110 mmHg Rue BP Diastolic Standing 60 mmHg Rue Respiratory Rate 16 /min BMI (Body Mass Index) 35.3 kg/m2 Ejection Fraction 40-45% as of 08/28/13 echo 05/11/2014 8:15am Height 64.5 inches 5'4.50" Weight 211.00 lb without shoes Heart Rate 66 /min regular BP Systolic Sitting 118 mmHg right arm large cuff BP Diastolic Sitting 68 mmHg right arm large cuff BP Systolic Standing 116 mmHg right arm large cuff BP Diastolic Standing 64 mmHg right arm large cuff Respiratory Rate 18 /min BMI (Body Mass Index) 35.7 kg/m2 09/10/2013 9:30am Height 64.5 inches 5'4.50" Weight 222.00 lb Heart Rate 60 /min BP Systolic Sitting 104 mmHg LA large cuff BP Diastolic Sitting 72 mmHg LA large cuff BP Systolic Standing 102 mmHg LA BP Diastolic Standing 72 mmHg LA Respiratory Rate 16 /min BMI (Body Mass Index) 37.5 kg/m2 Results Test Date Facility Test Result H/L Range Note Laboratory test 02/04/2018 [facility] Surgical SEE RESULT [address] [place] [address] [phone] Pre Cath Panel 01/25/2018 [facility] Partial 37.2 seconds High 26.0-36.[address] [address] PTT [phone] CBC Auto Diff 01/25/2018 [facility] White Blood 4.8 10^3/uL N 3.5-10.[address] [place] [address] [phone] Red Blood Count 3.89 10^6/uL Low 4.00-5.40 Hemoglobin 11.4 g/dL Low 12.0-16.0 Hematocrit 35 % N 35-47 Mean Corpuscular Volume 89 fL N 80-97 Mean Corpuscular Hemoglobin 29 pg N 27-31 Mean Corpuscular HGB Conc 33 g/dL N 31-36 Red Cell Distribution Width 15 % N 10.5-15 Platelet Count 132 10^3/uL Low 150-450 Mean Platelet Volume 8.5 um3 N 7.4-10.4 Abs Neutrophils 2.9 10^3/uL N 1.5-7.7 Abs Lymphocytes 1.3 10^3/uL N 1.0-4.8 Abs Monocytes 0.4 10^3/uL N 0-0.8 Abs Eosinophils 0.2 10^3/uL N 0-0.6 Abs Basophils 0 10^3/uL N 0-0.2 Abs Nucleated RBC 0 10^3/uL Granulocyte % 59.9 % N 38-83 Lymphocyte % 26.8 % N 25-47 Monocyte % 7.9 % High 0-7 Eosinophil % 4.6 % N 0-6 Basophil % 0.8 % N 0-2 Nucleated Red Blood Cells % 0.1 Inr/Protime 01/25/2018 [facility] Inr 0.98 N 0.77-1.[address] [place] [address] [phone] Basic Metabolic 01/25/2018 [facility] Sodium 137 mmol/L N 135- [address] [place] [address] [phone] Potassium 4.3 mmol/L N 3.5-5.0 Chloride 101 mmol/L N 101-111 Co2 Carbon Dioxide 31 mmol/L N 22-32 Anion Gap 5 mmol/L N 2-11 Glucose 190 mg/dL High 70-100 Blood Urea Nitrogen 25 mg/dL High 6-24 Creatinine 0.90 mg/dL N 0.51-0.95 BUN/Creatinine Ratio 27.8 High 8-20 Calcium 9.5 mg/dL N 8.6-10.3 Egfr Non- 60.9 >60 Egfr 73.7 >60 2 CBC Auto Diff 12/05/2017 [facility] White Blood 6.0 10^3/uL N 3.5-10.[address] [place] [address] [phone] Red Blood Count 3.96 10^6/uL Low 4.00-5.40 Hemoglobin 11.3 g/dL Low 12.0-16.0 Hematocrit 35 % N 35-47 Mean Corpuscular Volume 88 fL N 80-97 Mean Corpuscular Hemoglobin 29 pg N 27-31 Mean Corpuscular HGB Conc 32 g/dL N 31-36 Red Cell Distribution Width 15 % N 10.5-15 Platelet Count 150 10^3/uL N 150-450 Mean Platelet Volume 8.4 um3 N 7.4-10.4 Abs Neutrophils 3.5 10^3/uL N 1.5-7.7 Abs Lymphocytes 1.9 10^3/uL N 1.0-4.8 Abs Monocytes 0.4 10^3/uL N 0-0.8 Abs Eosinophils 0.1 10^3/uL N 0-0.6 Abs Basophils 0.1 10^3/uL N 0-0.2 Abs Nucleated RBC 0 10^3/uL Granulocyte % 58.6 % N 38-83 Lymphocyte % 31.8 % N 25-47 Monocyte % 6.1 % N 0-7 Eosinophil % 2.4 % N 0-6 Basophil % 1.1 % N 0-2 Nucleated Red Blood Cells % 0.1 Immunoglobulins 10/20/2017 [facility] Immunoglobulin G 2020 Abnormal 767 - 3 Serum Quant [address] mg/dL 1590 [place] [address] [phone] Immunoglobulin M 72 mg/dL 37 - 286 Immunoglobulin A 710 mg/dL Abnormal 61 - 356 Protein 10/20/2017 [facility] Total 7.5 g/dL 6.3 - Electrophoresis [address] Protein(Pep) 7.9 [place] [address] [phone] Albumin 2.9 g/dL Abnormal 3.4-4.7 Alpha-1 Globulin 0.4 g/dL Abnormal 0.1-0.3 Alpha-2 Globulin 0.9 g/dL 0.6-1.0 Beta Globulin 1.1 g/dL 0.7-1.2 Gamma Globulin 2.2 g/dL Abnormal 0.6-1.6 Albumin/Globulin Ratio 0.63 Impression See Comment 4 CBC Auto Diff 05/03/2017 [facility] White Blood 6.5 10^3/uL N 3.5-10.[address] [place] [address] [phone] Red Blood Count 3.71 10^6/uL Low 4.0-5.4 Hemoglobin 11.2 g/dL Low 12.0-16.0 Hematocrit 34 % Low 35-47 Mean Corpuscular Volume 92 fL N 80-97 Mean Corpuscular Hemoglobin 30 pg N 27-31 Mean Corpuscular HGB Conc 33 g/dL N 31-36 Red Cell Distribution Width 14 % N 10.5-15 Platelet Count 208 10^3/uL N 150-450 Mean Platelet Volume 9 um3 N 7.4-10.4 Abs Neutrophils 4.2 10^3/uL N 1.5-7.7 Abs Lymphocytes 1.6 10^3/uL N 1.0-4.8 Abs Monocytes 0.5 10^3/uL N 0-0.8 Abs Eosinophils 0.1 10^3/uL N 0-0.6 Abs Basophils 0.1 10^3/uL N 0-0.2 Abs Nucleated RBC 0 10^3/uL Granulocyte % 65.4 % N 38-83 Lymphocyte % 24.6 % Low 25-47 Monocyte % 6.9 % N 1-9 Eosinophil % 1.7 % N 0-6 Basophil % 1.4 % N 0-2 Nucleated Red Blood Cells % 0 Laboratory test 05/03/2017 [facility] C Reactive 10.92 mg/L High < 5.00 [address] [place] [place] [address] [phone] Comp Metabolic 05/03/2017 [facility] Sodium 135 mmol/L N 133- [address] [place] [address] [phone] Potassium 4.1 mmol/L N 3.5-5.0 Chloride 99 mmol/L Low 101-111 Co2 Carbon Dioxide 30 mmol/L N 22-32 Anion Gap 6 mmol/L N 2-11 Glucose 222 mg/dL High 70-100 Blood Urea Nitrogen 19 mg/dL N 6-24 Creatinine 0.63 mg/dL N 0.51-0.95 BUN/Creatinine Ratio 30.2 High 8-20 Calcium 9.3 mg/dL N 8.6-10.3 Total Protein 6.8 g/dL N 6.4-8.9 Albumin 3.1 g/dL Low 3.2-5.2 Globulin 3.7 g/dL N 2-4 Albumin/Globulin Ratio 0.8 Low 1-3 Total Bilirubin 0.50 mg/dL N 0.2-1.0 Alkaline Phosphatase 76 U/L N 34-104 Alt 27 U/L N 7-52 Ast 24 U/L N 13-39 Egfr Non- 92.1 >60 Egfr 118.5 >60 6 CBC Auto Diff 04/11/2017 [facility] White Blood 6.3 10^3/uL N 3.5-10.[address] [place] [address] [phone] Red Blood Count 4.03 10^6/uL N 4.0-5.4 Hemoglobin 12.3 g/dL N 12.0-16.0 Hematocrit 37 % N 35-47 Mean Corpuscular Volume 93 fL N 80-97 Mean Corpuscular Hemoglobin 31 pg N 27-31 Mean Corpuscular HGB Conc 33 g/dL N 31-36 Red Cell Distribution Width 14 % N 10.5-15 Platelet Count 111 10^3/uL Low 150-450 Mean Platelet Volume 9 um3 N 7.4-10.4 Abs Neutrophils 3.9 10^3/uL N 1.5-7.7 Abs Lymphocytes 1.7 10^3/uL N 1.0-4.8 Abs Monocytes 0.4 10^3/uL N 0-0.8 Abs Eosinophils 0.2 10^3/uL N 0-0.6 Abs Basophils 0.1 10^3/uL N 0-0.2 Abs Nucleated RBC 0 10^3/uL Granulocyte % 62.7 % N 38-83 Lymphocyte % 26.3 % N 25-47 Monocyte % 7.1 % N 1-9 Eosinophil % 2.7 % N 0-6 Basophil % 1.2 % N 0-2 Nucleated Red Blood Cells % 0.1 CBC Auto Diff 01/01/2017 [facility] White Blood 4.5 10^3/uL N 3.5-10.[address] [place] [address] [phone] Red Blood Count 3.83 10^6/uL Low 4.0-5.4 Hemoglobin 11.7 g/dL Low 12.0-16.0 Hematocrit 36 % N 35-47 Mean Corpuscular Volume 93 fL N 80-97 Mean Corpuscular Hemoglobin 31 pg N 27-31 Mean Corpuscular HGB Conc 33 g/dL N 31-36 Red Cell Distribution Width 14 % N 10.5-15 Abs Neutrophils 2.3 10^3/uL N 1.5-7.7 Abs Lymphocytes 1.6 10^3/uL N 1.0-4.8 Abs Monocytes 0.4 10^3/uL N 0-0.8 Abs Eosinophils 0.2 10^3/uL N 0-0.6 Abs Basophils 0 10^3/uL N 0-0.2 Abs Nucleated RBC 0 10^3/uL N Granulocyte % 51.1 % N 38-83 Lymphocyte % 36.0 % N 25-47 Monocyte % 8.7 % N 1-9 Eosinophil % 3.4 % N 0-6 Basophil % 0.8 % N 0-2 Nucleated Red Blood Cells % 0.1 N Platelet Count 81 10^3/uL Low 150-450 Mean Platelet Volume 9 um3 N 7.4-10.4 Oncology CBC 12/04/2013 [facility] White Blood 6.3 10^3/uL N 4.8-10.8 Auto Diff [address] [place] [address] [phone] Red Blood Count 4.19 10^6/uL N 4.0-5.4 Hemoglobin 11.9 g/dL Low 12.0-16.0 Hematocrit 38 % N 35-47 Mean Corpuscular Volume 90 fL N 80-97 Mean Corpuscular Hemoglobin 29 pg N 27-31 Mean Corpuscular HGB Conc 32 g/dL N 31-36 Red Cell Distribution Width 14 % N 10.5-15 Platelet Count 119 10^3/uL Low 150-450 Mean Platelet Volume 7 um3 Low 7.4-10.4 Abs Neutrophils 3.6 10^3/uL N 1.5-7.7 Abs Lymphocytes 2.1 10^3/uL N 1.0-4.8 Abs Monocytes 0.4 10^3/uL N 0-0.8 Abs Eosinophils 0.2 10^3/uL N 0-0.6 Abs Basophils 0 10^3/uL N 0-0.2 Granulocyte % 55.5 % N 38-83 Lymphocyte % 33.3 % N 25-47 Monocyte % 6.8 % N 1-9 Eosinophil % 3.9 % N 0-6 Basophil % 0.5 % N 0-2 Factor 5 Leiden 10/12/2011 [facility] Factor 5 Negative Negative Mutation [address] [place] [address] Result [phone] Factor 5 Leiden Mut Interp . () 7 Reviewed By SEE BELOW () 8 Factor II 10/12/2011 [facility] Prothrombin Negative Negative (Prothrombin) [address] [place] [address] [phone] PT Mutation Interp . () 9 Reviewed By SEE BELOW () 10 1 SEE RESULT BELOW Name: ELISABETH COLLINS : [address]: Vinicio Justin MD Acct: [id number] Unit: [id number] AGE: 77 Location: [facility] Re02/04/18 SEX: F Status: REG [facility] SPEC: [id number] STEFANO: 02/04/18- DR: Vinicio Justin MD REQ: [id number] RECD: 02/04/18 STATUS: SOUT _ ORDERED: LEVEL 1 FINAL DIAGNOSIS Event monitor, removal: Foreign body (Medtronic generator) (gross diagnosis) CLINICAL HISTORY No history given. GROSS DESCRIPTION The specimen is received fresh with no source identified and a requisition labeled, ICD Pacemaker Generator, and consists of a 6.3 x 5.0 x 1.3 cm silver metallic medical services coordinator. The following inscription is identified: [employer] Demetri II VR [id number] [facility]. Per established hospital medical staff protocol, no tissue is submitted. Gross only. Signed by and Reported on: Kendal Elam MD 02/05/18 1142 END OF REPORT DEPARTMENT OF PATHOLOGY, [address] [place] [address] Hunter Griffin M.D. Director [facility] # [id number] 2 Because ethnic data is not always readily [...] 15-29 5 Kidney failure <15 (or dialysis) 3 Test Performed by: [facility] [address] [place] [address] 4 RESULT: Polyclonal hypergammaglobulinemia Test Performed by: [facility] [address] [place] [id number] 5 Acute inflammation: >10.00 6 Because ethnic data is not always readily [...] 15-29 5 Kidney failure <15 (or dialysis) 7 This individual DOES NOT have the factor V Leiden (R506Q) mutation. Although the factor V Leiden mutation is absent, the individual may have other genetic and environmental risk factors for thrombosis. If clinically indicated, suggest Coagulation Consultation 97858 (Thrombophilia Profile) to complete the evaluation for an inherited or acquired thrombosing disorder (i.e., thrombophilia). This test is a direct mutation analysis of leukocyte genomic DNA by the Invader Assay system (Invader, [employer], [place], [place]). Analyte Specific Reagent. This test was developed and its performance characteristics determined by [facility]. It has not been cleared or approved by the U.S. Food and Drug Administration. 8 RESULT: GINNA Bingham Test Performed by: [address] [address] Driver Starting Gate: oTby Shabazz III, M.D. 9 This individual DOES NOT have the Prothrombin [id number] mutation. Although the Prothrombin [id number] mutation is absent, the individual may have other genetic and environmental risk factors for thrombosis. If clinically indicated, suggest Coagulation Consultation 90695 (Thrombophilia Profile) to complete the evaluation for an inherited or acquired thrombosing disorder (i.e., thrombophilia). Consider genetic consultation and counseling of potentially affected family members regarding laboratory testing. This test is a direct mutation analysis of leukocyte genomic DNA by the Invader Assay system (Invader, [employer], [place], [place]). Analyte Specific Reagent. This test was developed and its performance characteristics determined by [facility]. It has not been cleared or approved by the U.S. Food and Drug Administration. 10 RESULT: GINNA Bingham Test Performed by: [address] [address] Driver Starting Gate: Toby Shabazz III, M.D. Procedures Date Code Description Status 04/04/2018 84371 Interrogation Implant Cardiovasc Monitor System Incl Completed Analysis Int 04/04/2018 70814 Icd Eval With Inerative Adjustmt Dual Lead System Completed 04/04/2018 80579 EKG Tracing & Interpretation Completed 02/04/2018 09875 Moderate Sedation Services; Same Phys Intl 15 Mins; PT >=5 Completed Years 02/04/2018 42629 Insert/Replace Icd W/Generator Completed 01/14/2018 28878 Icd Check Single,Dual Or Multiple In Person W/DR Incl Completed Heart Rhyth 01/14/2018 69446 Icd Check Single,Dual Or Multiple In Person W/DR Incl Completed Heart Rhyth 12/11/2017 47978 Icd Check Single,Dual Or Multiple In Person W/DR Incl Completed Heart Rhyth 12/11/2017 37325 Icd Check Single,Dual Or Multiple In Person W/DR Incl Completed Heart Rhyth 11/19/2017 74098 Icd eval w/iterative adjment single lead Icd Completed 11/19/2017 33994 Icd eval w/iterative adjment single lead Icd Completed 10/10/2017 44607 Echocardiography, Transesophageal, Real Time W/Image 2D Completed W/W/O M-M 10/10/2017 11344 Pulse Wave/Continuous-Interp.RPT Completed 10/10/2017 04518 Color Flow Doppler/Interp & Reprt Completed 10/10/2017 28817 Moderate Sedation Services; Same Phys Intl 15 Mins; PT >=5 Completed Years 08/20/2017 00331 ECHO Transthorasic Realtime 2D W Doppler & Color Flow Hosp Completed 08/20/2017 96935 Treadmill Interp/Report Only Completed 08/20/2017 19274 Stress Test Supervsn W/Out I/R Completed 07/25/2017 10944 Icd eval w/iterative adjment single lead Icd Completed 07/25/2017 11059 Icd eval w/iterative adjment single lead Icd Completed 04/30/2017 89738 EKG Tracing & Interpretation Completed 04/27/2017 72766 EKG, Interpretation Only Completed 04/26/2017 87568 EKG, Interpretation Only Completed 04/25/2017 75574 Cardiac Cath,LT Hrtmincl Intraprocedural Ink LT Ventricul Completed Mammary 04/25/2017 86238 EKG, Interpretation Only Completed 04/25/2017 99881 Percutaneous Transcatheter Placement Of Intracoronary Completed Stent 04/24/2017 52960 Treadmill Interp/Report Only Completed 04/24/2017 88815 Stress Test Supervsn W/Out I/R Completed 04/22/2017 25836 Echocardiography, Transesophageal, Real Time W/Image 2D Completed W/W/O M-M 04/22/2017 00132 Pulse Wave/Continuous-Interp.RPT Completed 04/22/2017 72561 Color Flow Doppler/Interp & Reprt Completed 04/21/2017 39910 EKG, Interpretation Only Completed 04/20/2017 21118 EKG, Interpretation Only Completed 04/18/2017 07549 ECHO Transthorasic Realtime 2D W Doppler & Color Flow Hosp Completed 01/26/2017 40687 EKG Tracing & Interpretation Completed 12/22/2016 27565 Icd Eval W/Iterative Adjustmnt Single Lead Icd Completed 09/06/2016 93708 Icd Eval Sing,Dual,Multi Lead Remote Recpt Transm Tech Rev Completed Tech S 09/06/2016 89698 Icd Check Remote Up To 90 Days Single,Dual,Multiple Lead Completed 09/06/2016 65665 Icd Check Remote Up To 90 Days Single,Dual,Multiple Lead Completed 05/03/2016 33145 Icd eval w/iterative adjment single lead Icd Completed 01/28/2016 02532 EKG Tracing & Interpretation Completed 12/29/2015 87379 Icd eval w/iterative adjment single lead Icd Completed 08/25/2015 76518 Icd eval w/iterative adjment single lead Icd Completed 02/08/2015 03213 EKG Tracing & Interpretation Completed 12/30/2014 26366 Icd Check Remote Up To 90 Days Single,Dual,Multiple Lead Completed 12/30/2014 32210 Icd Eval Sing,Dual,Multi Lead Remote Recpt Transm Tech Rev Completed Tech S 08/27/2014 41662 Icd Check Single,Dual Or Multiple In Person W/DR Incl Completed Heart Rhyth 05/13/2014 56217 Icd Eval Sing,Dual,Multi Lead Remote Recpt Transm Tech Rev Completed Tech S 05/13/2014 46705 Icd Check Remote Up To 90 Days Single,Dual,Multiple Lead Completed 05/11/2014 79229 EKG Tracing & Interpretation Completed 01/06/2014 32268 Icd Eval Sing,Dual,Multi Lead Remote Recpt Transm Tech Rev Completed Tech S 01/06/2014 33535 Icd Eval Sing,Dual,Multi Lead Remote Recpt Transm Tech Rev Completed Tech S 01/06/2014 89940 Icd Check Remote Up To 90 Days Single,Dual,Multiple Lead Completed 09/08/2013 46136 Icd eval w/iterative adjment single lead Icd Completed 08/28/2013 26075 ECHO Transthoracic, Real-Time 2D With Doppler And Color Completed Flow 04/28/2013 88030 Icd Eval Sing,Dual,Multi Lead Remote Recpt Transm Tech Rev Completed Tech S 04/28/2013 14444 Icd Check Remote Up To 90 Days Single,Dual,Multiple Lead Completed 12/25/2012 49134 Icd eval w/iterative adjment single lead Icd Completed 08/22/2012 53424 Icd eval w/iterative adjment single lead Icd Completed 08/22/2012 02190 EKG Tracing & Interpretation Completed 04/25/2012 39183 Icd eval w/iterative adjment single lead Icd Completed Encounters Type Date Location Provider Dx Diagnosis Office Visit 01/25/2018 [facility] Nathalia Cuadra, Z95.0 Presence of 8:30a Of [employer] N.P. 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 I49.01 Ventricular fibrillation I48.0 Paroxysmal atrial fibrillation Office Visit 11/02/2017 [facility] Robert Dumont B95.4 Oth streptococcus 8:30a For Infectious Cady Curry as the cause of Diseases diseases classd elswhr E11.9 Type 2 diabetes mellitus without complications Z95.0 Presence of cardiac pacemaker S81.801D Unspecified open wound, right lower leg, subs encntr Office Visit 10/19/2017 [facility] Robert Dumont B95.4 Oth streptococcus 11:30a For Infectious Cady Curry as the cause of Diseases diseases classd elsr J18.9 Pneumonia, unspecified organism R78.81 Bacteremia Office Visit 10/14/2017 [facility] Mellissa Astudillo J18.9 Pneumonia, 9:43a Assocanushka, PIPEFITTER HELPER unspecified Hospitalists organism B95.4 Oth streptococcus as the cause of diseases classd elswhr L89.312 Pressure ulcer of right buttock, stage 2 Office Visit 10/13/2017 [facility] Mellissa Astudillo J18.9 Pneumonia, 9:42a Assocanushka PIPEFITTER HELPER unspecified Hospitalists organism I10 Essential (primary) hypertension E11.9 Type 2 diabetes mellitus without complications [facility] Pneumonia, 9:42a Assanushka ortega PIPEFITTER HELPER unspecified Hospitalists organism I10 Essential (primary) hypertension E11.9 Type 2 diabetes mellitus without complications Office Visit 10/11/2017 8:04a [facility] Robert Dumont J18.9 Pneumonia, Infectious Cady Curry unspecified Diseases organism R78.81 Bacteremia Z95.0 Presence of cardiac pacemaker [facility] J18.9 Pneumonia, 9:42a Assoc,pc Dahlia, PIPEFITTER HELPER unspecified Hospitalists organism I10 Essential (primary) hypertension E11.9 Type 2 diabetes mellitus without complications Office Visit 10/10/2017 [facility] Sosa J18.9 Pneumonia, 9:41a Assoc,anushka Tran, PIPEFITTER HELPER unspecified Hospitalists organism R78.81 Bacteremia I48.91 Unspecified atrial fibrillation [facility] Pneumonia, 9:41a Assoc,pc Chelsea, PIPEFITTER HELPER unspecified Hospitalists organism B95.4 Oth streptococcus as the cause of diseases classd elswhr R78.81 Bacteremia I48.91 Unspecified atrial fibrillation R53.1 Weakness Office Visit 10/09/2017 7:51a [facility] Luiza Dumont J18.9 Pneumonia, Infectious Cady Curry unspecified Diseases organism R78.81 Bacteremia Z95.0 Presence of cardiac pacemaker Office Visit 10/08/2017 7:50a [facility] Robert Marin18.9 Pneumonia, Infectious Cady Curry unspecified Diseases organism R78.81 Bacteremia Z95.0 Presence of cardiac pacemaker [facility] R68.83 Chills 9:40a Assanushka ortega II, M.D. (without Hospitalists fever) R11.0 Nausea R53.81 Other malaise R00.0 Tachycardia, unspecified Office Visit 08/20/2017 10:40a 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 Frank Tejada R07.2 Precordial pain 10:39a anushka Colbert II, M.D. 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 I49.01 Ventricular Of [employer] Foster, N.P. fibrillation I48.0 Paroxysmal atrial fibrillation I25.5 Ischemic cardiomyopathy Z95.810 Presence of automatic (implantable) cardiac defibrillator Office Visit 06/06/2017 10:10a [facility] Robert Dumont R21 Rash and other For Infectious Cady Curry nonspecific skin Diseases eruption Office Visit 05/17/2017 2:00p [facility] Robert Dumont Z86.19 Personal history For Infectious Cady Curry of other Diseases infectious and parasitic diseases R21 Rash and other nonspecific skin eruption Office Visit 05/10/2017 [facility] Johanny Barba, I25.810 [facility]ros[facility] [place] pectoris I21.4 Non-St elevation (Nstemi) myocardial infarction I49.01 Ventricular fibrillation I48.0 Paroxysmal atrial fibrillation I25.5 Ischemic cardiomyopathy M79.606 Pain in leg, unspecified Office Visit 04/30/2017 2:20p [facility] Hunter Gill, Z48.812 Encntr for Of [facility], surgical aftcr FSCAI following surgery on the circ sys I25.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[place] coronary artery w/o ang pctrs Office Visit 04/27/2017 3:32p [facility] Parminder Castro I25.10 Athscl heart Of [facility] Cook, DO disease of [facility] hughes coronary artery w/o ang pctrs I47.2 Ventricular tachycardia Z95.810 Presence of automatic (implantable) cardiac defibrillator I50.9 Heart failure, unspecified I48.91 Unspecified atrial fibrillation Office Visit 04/26/2017 3:31p [facility] Parminder SElmer I47.2 Ventricular Of [facility] Cook, DO tachycardia FACC Z95.810 Presence of automatic (implantable) cardiac defibrillator I50.9 Heart failure, unspecified I48.91 Unspecified atrial fibrillation Office Visit 04/26/2017 9:40a [facility] Hunter Gill I25.10 Athscl heart Of [facility] AT [facility], [facility], disease of hughes FSCAI coronary artery w/o ang pctrs Office Visit 04/25/2017 3:30p [facility] Johanny Jameson, I48.0 Paroxysmal atrial Of [employer] M.D. fibrillation I10 Essential (primary) hypertension Office Visit 04/24/2017 4:14p [facility] Vinicio Dumont I47.2 Ventricular Of Santo Brand, M.D. tachycardia I25.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[place] coronary artery w/o ang pctrs Office Visit 04/24/2017 3:13p [facility] Rboert Dumont R78.81 Bacteremia Infectious Diseases Cady Curry B95.1 Streptococcus, group B, causing diseases classd elswhr R93.1 Abnormal findings on dx imaging of heart and cor circ I45.81 Long QT syndrome Z95.810 Presence of automatic (implantable) cardiac defibrillator Office Visit 04/23/2017 3:28p [facility] Johanny Barba, A41.9 Sepsis, Of [place] M.D. unspecified organism I48.0 Paroxysmal atrial fibrillation Office Visit 04/22/2017 3:26p [facility] Johanny Barba R78.81 Bacteremia Of [place] M.D. I47.2 Ventricular tachycardia Office Visit 04/21/2017 3:25p [facility] Johanny Barba A41.9 Sepsis, Of [place] M.D. unspecified organism I47.2 Ventricular tachycardia I25.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[place] coronary artery w/o ang pctrs I42.9 Cardiomyopathy, unspecified I48.0 Paroxysmal atrial fibrillation Office Visit 04/20/2017 3:22p [facility] Johanny Barba, I48.0 Paroxysmal atrial Of [employer] M.D. 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 CABG w/o angina [place] AT [facility] [place] pectoris I73.9 Peripheral vascular disease, unspecified I65.29 Occlusion and stenosis of unspecified carotid artery E78.00 Pure hypercholesterolemia, unspecified I10 Essential (primary) hypertension E11.8 Type 2 diabetes mellitus with unspecified complications I34.0 Nonrheumatic mitral (valve) insufficiency Z95.810 Presence of automatic (implantable) cardiac defibrillator Office Visit 01/28/2016 [facility] Johanny Barba, Z95.810 Presence of 8:20a Cardiology Of M.Julia automatic [place] AT [facility] [place] (implantable) cardiac defibrillator I25.810 Atherosclerosis of CABG w/o angina pectoris E78.00 Pure hypercholesterolemia, unspecified I10 Essential (primary) hypertension I25.5 Ischemic cardiomyopathy E11.8 Type 2 diabetes mellitus with unspecified complications Office Visit 02/08/2015 8:15a [facility] Johanny Barba, I73.9 Peripheral [facility] Cady vascular disease, unspecified Z95.810 Presence of automatic (implantable) cardiac defibrillator I10 Essential (primary) hypertension E78.0 Pure hypercholesterolemia I25.810 Atherosclerosis of CABG w/o angina pectoris R94.31 Abnormal electrocardiogram [ECG] [EKG] I47.2 Ventricular tachycardia Office Visit 07/05/2014 [facility] Moy Monreal, 578.9 Hemorrhage 1:06p Assoc,anushka Lazar Gastrointestinal Hospitalists Tract Unspec 285.1 Anemia Posthemorrhagic Acute 414.00 Coronary Atherosclerosis Unspec Type Vessel [place]/Graft 443.9 Peripheral Vascular Disease Unspec Office Visit 05/11/2014 [facility] Johanny Barba, 414.02 Coronary 8:15a Cardiology Of Cady Atherosclerosis [facility] Autologous Vein Bypass Graft 250.90 Diabetes W/ Unspec Compl Type II Or Unspec Controlled 272.0 Hypercholesterolemia Pure 401.9 Hypertension Unspec 427.1 Paroxysmal Ventricular Tachycardia V45.02 Cardiac Defibrillator Automatic Implantable Postsurgical Office Visit 09/10/2013 9:15a [facility] Johanny Barba, 443.9 Peripheral Of [facility] Cady Vascular Disease Unspec 272.0 Hypercholesterolemia Pure 401.9 Hypertension Unspec 414.02 Coronary Atherosclerosis Autologous Vein Bypass Graft V45.02 Cardiac Defibrillator Automatic Implantable Postsurgical Office Visit 12/25/2012 [facility] Johanny Barba, 414.02 Coronary 9:45a Cardiology Of MNadine Atherosclerosis [facility] Autologous Vein Bypass Graft 443.9 Peripheral Vascular Disease Unspec 401.9 Hypertension Unspec 272.0 Hypercholesterolemia Pure Office Visit 05/10/2012 9:48a [facility] Moy Monreal, 682.6 Cellulitis & Assoc,pc Cady Abscess Leg Hospitalists Except Foot 250.90 Diabetes W/ Unspec Compl Type II Or Unspec Controlled 278.00 Obesity Unspec V12.51 History Personal Venous Thromb & Embolism Office Visit 05/08/2012 9:48a [facility] Ander 682.6 Cellulitis & Assoc,pc Yaw Winkler Abscess Leg Hospitalists Except Foot 250.90 Diabetes W/ Unspec Compl Type II Or Unspec Controlled 278.00 Obesity Unspec V12.51 History Personal Venous Thromb & Embolism [facility], 276.51 Dehydration Assoc,pc Cady Hospitalists 008.8 Enteritis Due To Other Organism Not Elsewhere Class 443.81 Peripheral Angiopathy Disease Class Elsewhere Office Visit 05/04/2012 9:46a [facility] Taye Ashuelot, 276.51 Dehydration Assoc,pc N.P. Hospitalists 008.8 Enteritis Due To Other Organism Not Elsewhere Class 682.8 Cellulitis & Abscess Other Spec Sites 443.81 Peripheral Angiopathy Disease Class Elsewhere Office Visit 04/25/2012 [facility] Ica Pacer 414.02 Coronary 9:15a Cardiology Of Schedule Atherosclerosis [place] Autologous Vein Bypass Graft 427.1 Paroxysmal Ventricular Tachycardia 443.9 Peripheral Vascular Disease Unspec 401.9 Hypertension Unspec Plan of Treatment 04/04/2018 - Johanny Barba M.D.Z95.810 Presence of automatic (implantable) cardiac defibrillatorComments:Good function, no rhythm problems.Follow up:ICD check, today if able. ICD check remote or in office 2-3 months, then as per Device nurses.I25.10 Atherosclerotic heart disease of hug[place] coronary artery withFollow up:OV 2- months with PIPEFITTER HELPER after ICD check.I48.0 Paroxysmal atrial jmexjycbrbmfX29.01 Ventricular wzfrfieapfnnD04.8 Type 2 diabetes mellitus with unspecified lukcdfozrktioM22.9 Peripheral vascular disease, unspecifiedFollow up :Pt sees Dr Zelaya, see if you can assist w ith appt for PVD, non healing ulcers for re evaluation with him.R60.9 Edema, unspecifiedComments:Dr Ashford follows currently.R53.83 Other fatigueNew Orders:Overnight Oximetry, Ordered: 12 /13/18Follow up:We will call with results.
--- NOTE | 2018-04-07 12:36 | ED ---
Neurological HPI - HPI Summary HPI Summary: 77 year old F presenting to [facility] accompanied by daughter, with a chief complaint of increasing generalized weakness since one week ago. The patient rates the pain 0/10 in severity. Symptoms aggravated by nothing. Symptoms alleviated by nothing. Daughter reports that patient has been more weak and confused than normal. When tired, patient has slurred speech. Patient denies fever, chest pain, shortness of breath, abdominal pain, n/v/d. Daughter is EMT in [place]. She tried testing patient for stroke symptoms, asking patient to smile and to hold both arms out, all of which seemed normal to daughter at the time of testing. Patient also complains that she has been incontinent of stool. When she wipes after going to bathroom, "there is always something there " (meaning stool) even though she has not felt the stool come out. She reports blood in stool. She denies dark or black stool. Patient was seen by Dr. Ashford, primary care provider, on Sunday04/03/18. Patient's thyroid was elevated. Patient has hx diabetes and her HB A1c with Dr. Ashford was 7.1 per daughter. She takes insulin. Upon checking her sugar this morning, patient's blood glucose level was 136 when usually is 80 or 90. Patient was seen by Dr. Barba, sports analyst, on 04/07/18. Dr. Barba noticed patient's left ankle was draining and recommended that patient follow up with her vascular physicians as pt has had an aorto bifem bypass and PVD. Per daughter, patient has hx MRSA, last time in April 2017. Per daughter, patient has hx UTI. Patient was seen by Dr. Montgomery, urology, a couple weeks ago during which patient's urethra was dilated. Per daughter, patient has hx "diarrhea issues" that comes and goes, with the last time being a couple weeks ago. Per , patient has problems making it to the bathroom sometimes. Patient is not taking Coumadin. She had bleeding with Xarelto. Daughter reports patient has hx blood clots in lower extremities for which she is taking fondaparinux and clopidogrel. Patient is a former smoker. She quit in 1998. She does not drink alcohol. She does not use drugs. Pt has hx GI bleed, sepsis, MRSA, recurrent UTI's, pneumonia, CAD, VA, CABG, cardiac arrest with pacer/defib, afib on arixtra and clopidogrel, allergic to xarelto, DM, HTN, Hyperlipidemia, DVT, PVD, Aorto fem bypass. Vital signs while in room: HR 63 bpm, BP 130/69 Home Medications Medication Instructions Recorded Confirmed Type Atorvastatin* [Lipitor 80 MG*] 80 mg PO BEDTIME 05/04/12 04/07/18 History Calcium Carbonate [Calcium] 600 mg PO BID 05/04/12 04/07/18 History Furosemide TAB* [Lasix TAB*] 100 mg PO DAILY 05/04/12 04/07/18 History Metoprolol Tartrate TAB* 50 mg PO BID 05/04/12 04/07/18 History [Lopressor TAB*] Multivitamins/Minerals TAB* [Thera 1 tab PO DAILY 05/04/12 04/07/18 History M Plus TAB*] Potassium Chlor Tab* [K Dur Tab*] 40 meq PO TID 05/04/12 04/07/18 History Acetaminophen [Tylenol Extra 650 mg PO BEDTIME 08/02/13 04/07/18 History Strength] Omeprazole CAP* [Prilosec CAP* 20 40 mg PO DAILY 07/10/14 04/07/18 History MG] Aspirin EC TAB* [Ecotrin EC Low 81 mg PO DAILY 05/19/15 04/07/18 History Dose 81 MG*] Fondaparinux* [Arixtra*] 7.5 mg SUBCUT DAILY 05/19/15 04/07/18 History Lactobacillus Acidophilus 1 cap PO BID 04/16/17 04/07/18 History [Probiotic] Clopidogrel TAB* [Plavix TAB*] 75 mg PO DAILY #30 tab 04/27/17 04/07/18 Rx Magnesium Oxide TAB* [MagOx 400 400 mg PO BID #60 tab 04/27/17 04/07/18 Rx TAB*] Levothyroxine Sodium 25 mcg PO DAILY 02/01/18 04/07/18 History Nitroglycerin 0.4 mg SL SEE INSTRUCTIONS PRN 02/01/18 04/07/18 History Chlordiazepoxide/Clidinium Br 1 cap PO TID 04/07/18 04/07/18 History [Chlordiazepoxide-Clidinium Cap] Citalopram Hydrobromide 10 mg PO DAILY 04/07/18 04/07/18 History [Citalopram HBr] Insulin Glargine,Hum.rec.anlog 27 units INJ QPM 04/07/18 04/07/18 History [Lantus Solostar 5x3 ML PENS] Insulin Glargine,Hum.rec.anlog 30 units INJ QAM 04/07/18 04/07/18 History [Lantus Solostar 5x3 ML PENS] Mupirocin 2% CREAM* [Bactroban 2% 1 applic TOPICAL BID 04/07/18 04/07/18 History CREAM*] - History of Current Complaint Chief Complaint: EDWeakness Stated Complaint: WEAKNESS/CONFUSED Time Seen by Provider: 04/07/18 12:22 Hx Obtained From: Patient, Family/Casing Mixer - daughter and husabnd Onset/Duration: Gradual Onset, Started weeks ago - 1, Still Present Timing: Constant Onset Severity: Moderate Current Severity: None Pain Intensity: 0 Pain Scale Used: 0-10 Numeric Character: Weak - generalized, Impaired Speech - "when tired", Confusion Aggravating: Nothing Alleviating: Nothing Associated Signs and Symptoms: Positive: Weakness, Impaired Speech - when tired , Incontinent Bladder/Bowel - stool, GI Blood Loss - bright red blood in stool, Diarrhea TPA Considered: No Related Hx: Anticoagulants, Platlet Inhibitor - Additional Pertinent History Primary Care Physician: SID - Allergy/Home Medications Allergies/Adverse Reactions: Allergies Allergy/AdvReac Type Severity Reaction Status Date / Time rivaroxaban [From Xarelto] Allergy Bleeding Verified 04/07/18 12:22 Home Medications: Home Medications Chlordiazepoxide/Clidinium Br [Chlordiazepoxide-Clidinium Cap] 1 cap PO TID [History Confirmed 04/07/18] Citalopram Hydrobromide [Citalopram HBr] 10 mg PO DAILY 04/07/18 [History Confirmed 04/07/18] Insulin Glargine,Hum.rec.anlog [Lantus Solostar 5x3 ML PENS] 27 units INJ QPM [History Confirmed 04/07/18] Insulin Glargine,Hum.rec.anlog [Lantus Solostar 5x3 ML PENS] 30 units INJ QAM [History Confirmed 04/07/18] Mupirocin 2% CREAM* [Bactroban 2% CREAM*] 1 applic TOPICAL BID 04/07/18 [ History Confirmed 04/07/18] PMH/Surg Hx/FS Hx/Imm Hx Previously Healthy: No Endocrine/Hematology History: Reports: Hx Anticoagulant Therapy - arixtra and plavix , Hx Diabetes Denies: Hx Thyroid Disease Cardiovascular History: Reports: Hx Angina, Hx Auto Implanted Cardiovert Defib, Hx Cardiac Arrest, Hx Coronary Artery Disease, Hx Deep Vein Thrombosis, Hx Hypercholesterolemia, Hx Hypertension, Hx Pacemaker/ICD - 2005, Hx Peripheral Vascular Disease, Other Cardiovascular Problems/Disorders - VT with VF ICD going off Denies: Hx Congestive Heart Failure Respiratory History: Denies: Other Respiratory Problems/Disorders GI History: Reports: Hx Gastrointestinal Bleed History: Reports: Hx Kidney Stones - IN THE PAST, Other Problems/ Disorders - recurrent UTI's, urethral dilation 03/2018 Denies: Hx Renal Disease Musculoskeletal History: Reports: Hx Arthritis Sensory History: Reports: Hx Cataracts, Hx Contacts or Glasses - Glasses, Hx Hearing Aid - right side, Hx Hearing Problem - Bilateral hearing loss Opthamlomology History: Reports: Hx Cataracts, Hx Contacts or Glasses - Glasses Neurological History: Denies: Hx Dementia, Hx Developmental Delay, Hx Headaches Psychiatric History: Reports: Hx Anxiety, Hx Depression - Cancer History Hx Chemotherapy: No Hx Radiation Therapy: No - Surgical History Surgery Procedure, Year, and Place: pacer/defib;. cabg;. right leg bypass aorto-fem;. c section;. 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 Negative: Fever Negative: Chest Pain Negative: Shortness Of Breath Gastrointestinal: Negative - dark or black stool Positive: Diarrhea, Other - incontinent of stool, blood in stool. Negative: Abdominal Pain, Vomiting, Nausea Positive: no symptoms reported, other - recent urethral dilation Musculoskeletal: Negative Positive: Other - leg ulcer, draining left leg Neurological: Other - increasing generalized weakness, confusion Positive: Slurred Speech - "when tired" Psychological: Normal All Other Systems Reviewed And Are Negative: Yes Physical Exam - Summary Physical Exam Summary: Appearance: chronically ill-appearing, no pain distress, obese, Pt insisted on walking from triage room to room 9, slow steady gait, assisted by daughter Skin: 6-cm purple and green ecchymosis inferior to her right clavicle, nontender and previously unnoticed by pt. Multiple ecchymosis of varying ages on abdomen and extremities without explanation or known cause. 3-cm draining ulcer on medial aspect of her left lower leg, not red or purulent. Head: Normal Head/Face inspection, atraumatic Eyes: Conjunctiva clear, PERRL EOMI, no nystagmus ENT: Normal inspection Neck: Supple, no nodes, no JVD Respiratory: Scattered rhonchi in both lungs, crackles in right base Cardio: RRR, No murmur, pulses normal, brisk capillary refill. Patient has a pacer defibrillator in left anterior chest, diminished and absent pulses in all extremities Abdomen: Soft, nontender. No masses. No guarding. No rebound. Non-distended. Rectal exam witnessed by Lynne nurse: Excoriated red skin in sangeeta-rectal area. External hemorrhoids. It is a tender exam. Yellow stool with bright red blood flecks. Good rectal tone. Bowel sounds: Present Musculoskeletal: Strength Intact/ROM intact, no calf tenderness, no edema. Psychological: Normal Neuro: Alert O x 3, muscle tone normal, no focal deficit, motor 5/5, sensation grossly intact, CN II-XII intact, normal gait, speech fluent and coherent GCS: 15 Triage Information Reviewed: Yes Vital Signs On Initial Exam: Initial Vitals Temp Pulse Resp BP Pulse Ox 98.7 F 63 17 137/73 100 04/07/18 12:19 04/07/18 12:19 04/07/18 12:19 04/07/18 12:19 18 12:19 Vital Signs Reviewed: Yes Diagnostics - Vital Signs Vital Signs Temp Pulse Resp BP Pulse Ox 04/07/18 12:19 98.7 F 63 17 137/73 100 - Laboratory Result Diagrams: 04/08/18 08:03 04/08/18 08:03 Lab Statement: Any lab studies that have been ordered have been reviewed, and results considered in the medical decision making process. - Radiology CXR Radiology Interpretation Completed By: Radiologist Summary of Radiographic Findings: Stable elevation of the right hemidiaphragm. ED physician has reviewed this report. - CT Brain CT Interpretation Completed By: Radiologist Summary of CT Findings: DIFFUSE HYPOATTENUATION OF THE PERIVENTRICULAR AND SUBCORTICAL WHITE MATTER, SUGGESTIVE CHRONIC SMALL VESSEL ISCHEMIC CHANGE, PROGRESSED FROM THE 2016 EXAMINATION. RECOMMEND CONSIDERATION OF FURTHER EVALUATION WITH MRI OF THE BRAIN IN THE NONACUTE SETTING. NO ACUTE INTRACRANIAL PATHOLOGY. ED physician has reviewed this report. - EKG 1238 Cardiac Rate: NL - 63 BPM EKG Rhythm: Sinus Rhythm ST Segment: Non-Specific Ectopy: None EKG Comparison: No Significant Change - From EKG on 10/07/17 Summary of EKG Findings: First degree AV block (208). Prolonged IVCD with LBBB. Normal QTc. Left axis (-41). Negative Sgarbosa criteria. No acute changes. No change compared to previous EKG on 10/07/17. NIH Scale - NIH Scale Level of Consciousness: Alert/Keenly Responsive Ask Patient the Month and His/Her Age: Both Correct Ask Pt to Open/Close Eyes and Neuropsychologist/Release Non-Paretic Hand: Both Correctly Best Gaze (Only Horizontal Eye Movement): Normal Visual Field Testing: No Visual Loss Facial Paresis-Pt to Smile & Close Eyes or Grimace Symmetry: Normal/Symmetrical Motor Function - Right Arm: No Drift-Holds 10 Seconds Motor Function - Left Arm: No Drift-Holds 10 Seconds Motor Function - Right Leg: No Drift-Holds 10 Seconds Motor Function - Left Leg: No Drift-Holds 10 Seconds Limb Ataxia-Must be out of Proportion to Weakness Present: Absent Sensory (Use Pinprick to Test Arms/Legs/Trunk/Face): Normal Best Language (Describe Picture, Name Items): No Aphasia Dysarthria (Read Several Words): Normal Extinction and Inattention: No Abnormality Total Score: 0 Re-Evaluation - Re-Evaluation First Eval Re-Evaluation Time: 14:26 Change: Unchanged Comment: Patient is feeling no pain. She agrees to admission Course/Dx - Course Course Of Treatment: Pt with significant PMH including CAD, sepsis, GI bleed, MRSA, DM, HTN, PVD presents with one week hx generalized weakness and confusion and incontinence of yellow diarrhea stool with red flecks of blood and draining ulcer left medial ankle. Pt is on fondaparinux and clopidogrel. Patient's medications reviewed this visit. Allergies noted. EKG showed SR with no acute changes and no change compared to previous EKG on 10/07/17. CXR per radiologist showed stable elevation of the right hemidiaphragm. CT Brain per radiologist showed NO ACUTE INTRACRANIAL PATHOLOGY, but worsening small vessel disease compared to previous, suggests nonacute MRI for follow up. Bloodwork and urine obtained. Stool guaiac was positive. Patient tested positive for MRSA on left leg ulcer wound culture sent. Pt has no definite signs of VA/ischemia, GI bleed , sepsis, although with pt's current sxs and this PMH, those dxs are all in the differential, including possible neurologic event/CVA/ TIA, vascular complications of her PVD s/p aortobifem bypass, or DM complications. Discussed with Dr. Lind, hospitalist, who agrees to admit the patient. Discussed admission plan with patient, , and daughter. They are agreeable to admission. Patient will be admitted to hospitalist. - Differential Dx Differential Diagnoses Neuro: Positive: Cerebrovascular Accident, Coronary Artery Disease, GI Bleed, Hypertension, Hypoglycemia, Hypoxia, Insulin Rx, Intracranial Bleed, Metabolic Abnormality, Transient Ischemic Attack, Other - sepsis - Diagnoses Provider Diagnoses: Generalized weakness, Stool incontinence, Guaiac positive stools, Leg ulcer, MRSA (methicillin resistant Staphylococcus aureus), Confusion with nonfocal neurological examination, Thrombocytopenia - Physician Notifications Discussed Care Of Patient With: Esmer Lind Time Discussed With Above Provider: 14:20 Instructed by Provider To: Other - Dr. Lind, hospitalist, agrees to admit the patient. Discharge - Sign-Out/Discharge Documenting (check all that apply): Patient Departure - [place] [facility] [place]charge Plan Condition: Fair Disposition: ADMITTED TO [facility] - Billing Disposition and Condition Condition: FAIR Disposition: Admitted to [facility] - Attestation Statements Document Initiated by Oli: Yes Documenting Scribe: Brooke Hall Provider For Whom Oli is Documenting (Include Credential): Blaire Do MD Scribe Attestation: IBrooke, scribed for Blaire Do MD on 04/08/18 at 1754. Scribe Documentation Reviewed: Yes Provider Attestation: The documentation as recorded by the Brooke kim accurately reflects the service I personally performed and the decisions made by me, Blaire Do MD Status of Scribe Document: Viewed
[2018-04-07 13:10] LABS: ABS Basophils 0 10^3/ul (0-0.2); ABS Eosinophils 0.2 10^3/ul (0-0.6); ABS Lymphocytes 1.5 10^3/ul (1.0-4.8); ABS Monocytes 0.4 10^3/ul (0-0.8); ABS Nucleated RBC 0 10^3/ul; Eosinophil % 3.9 %; Hematocrit 33 % (35-47); Hemoglobin 10.9 g/dl (12.0-16.0); Lymphocyte % 37.4 %; Mean Corpuscular HGB Conc 33 g/dl (31-36); Mean Corpuscular Hemoglobin 29 pg (27-31); Mean Corpuscular Volume 88 fL (80-97); Mean Platelet Volume 8.5 fL (7.4-10.4); Nucleated Red Blood Cells % 0.1; Platelet Count 132 10^3/ul (150-450); Red Blood Count 3.77 10^6/ul (4.00-5.40); Red Cell Distribution Width 15 % (10.5-15); White Blood Count 4.1 10^3/ul (3.5-10.8)
[2018-04-07 13:16] LABS: INR 1.03 (0.77-1.02)
[2018-04-07 13:26] LABS: EGFR Non-African American 62.5 (>60)
[2018-04-07 14:34] LABS: Urine Appearance Cloudy; Urine Blood 1+ (Negative); Urine Color Yellow; Urine Ketones Negative (Negative); Urine Protein Negative (Negative); Urine Red Blood Cell 1+(3-5/hpf) (Absent); Urine Urobilinogen Negative (Negative); Urine White Blood Cell Absent (Absent)
[2018-04-07] MEDS ORDERED: Acetaminophen TAB* 325 MG PO PRN (15:17)
[2018-04-07] MEDS ORDERED: Al Hydrox/Mg Hydrox/Simet LIQ* 30 ML UDC PO PRN (15:17)
[2018-04-07] MEDS ORDERED: Dextrose 50% Syringe 50 ML* 25 GM/50 ML SYRINGE IV PUSH PRN (15:29)
[2018-04-07] MEDS ORDERED: NS 0.9% 1000 ML* 1,000 ML IV SCH ×2 (15:30→15:40)
[2018-04-07] MEDS: cefTRIAXone(*) 1 GM in NS 0.9% 50 ML* 50 ML IVPB SCH (16:14)
[2018-04-07] MEDS ORDERED: Loperamide CAP* 2 MG PO PRN (16:27)
--- NOTE | 2018-04-07 16:38 | ED ---
Progress - Progress Note Progress Note: Patient's wound culture reveals both MRSA and staph aureus. Patient was admitted to the hospital and is being covered for both organisms by the hospitalist team who is aware of her findings. No further action at this time. Re-Evaluation - Re-Evaluation First Eval Re-Evaluation Time: 14:26 Comment: Patient is feeling no pain. She agrees to admission Course/Dx - Course Course Of Treatment: Patient medications reviewed this visit. Allergies noted. EKG showed no change compared to previous EKG on 10/07/17. CXR per radiologist showed stable elevation of the right hemidiaphragm. CT Brain per radiologist showed NO ACUTE INTRACRANIAL PATHOLOGY. Bloodwork and urine obtained. Stool culture was obtained. Patient tested positive for MRSA. Discussed with Dr. Lind , hospitalist, who agrees to admit the patient. Discussed admission plan with patient, , and daughter. They are agreeable to admission. Patient will be admitted to hospitalist. - Diagnoses Provider Diagnoses: Generalized weakness, Stool incontinence, Guaiac positive stools, Leg ulcer, MRSA (methicillin resistant Staphylococcus aureus) - Provider Notifications Time Discussed With Above Provider: 14:20 Instructed by Provider To: Other - Dr. Lind, hospitalist, agrees to admit the patient. Discharge - Sign-Out/Discharge Documenting (check all that apply): Post-Discharge Follow Up - Discharge Plan Disposition: ADMITTED TO [facility] Referrals: Daryl Ashford MD [Primary Care Provider] - 2 Days Additional Instructions: Return to the emergency department for new or worsening symptoms - Billing Disposition and Condition Disposition: Admitted to [facility]
[2018-04-07] MEDS: Insulin LISPRO* 1 UNITS UNIT SUBCUT SCH (18:13)
[2018-04-07] MEDS: Insulin GLARGINE(*) 1 UNITS UNIT SUBCUT SCH (18:14)
[2018-04-07] MEDS: Atorvastatin* 80 MG TAB PO SCH (19:50)
[2018-04-07] MEDS: Mupirocin 2% OINT* TUBE TOPICAL SCH (19:50)
[2018-04-07] MEDS: DOXYcycline CAP(*) 100 MG PO SCH (19:50)
[2018-04-07] MEDS: Metoprolol Tartrate TAB* 50 mg PO SCH (19:50)
[2018-04-07] MEDS: Magnesium Oxide TAB* 400 MG PO SCH (19:50)
[2018-04-07] MEDS: Potassium Chlor TAB* 20 MEQ TAB.ER PO SCH (19:50)
[2018-04-07] MEDS ORDERED: chlordiazePOXIDE/Clidinium 1 CAP CAP PO SCH (21:00)
--- NOTE | 2018-04-08 04:33 | HP ---
CC: Dr. Ashford * HISTORY AND PHYSICAL: DATE OF ADMISSION: 04/07/18 PRIMARY CARE PROVIDER: Dr. Ashford. PROVIDER: Sosa Tran NP ATTENDING PHYSICIAN WHILE IN THE HOSPITAL: Dr. Esmer Lind * (dictated by Sosa Tran NP). CHIEF COMPLAINT: 1. Weakness. 2. Confusion. HISTORY OF PRESENT ILLNESS: Ms. Collins reports that she has had increased weakness for approximately 1 week and increased confusion. She denies any fever or chills. Denies any nausea, vomiting, or diarrhea. Denies any cough or congestion or shortness of breath. Denies any gross hematuria or dysuria. Denies any focal weakness or sensory loss. She does report increased difficulty reading her newspaper, changes in her vision x1 week. Denies any dysphagia. She does report open wound to her left lower leg that has been there for approximately 2 weeks. She denies any recent sick contacts or any other complaints. Patient also reports incontinence of stool, stating that after she urinates she general has stool as well, denies black or tarry stools. While in the emergency room she had routine lab work which showed H/H to be at her baseline. She did have a rectal exam in the ER which showed yellow stool with bright red blood streaking in the stool, external hemorrhoids. Due to her complaint of weakness, we were asked to see and evaluate her for admission. PAST MEDICAL HISTORY: Significant for: 1. Coronary artery disease with 2-vessel bypass in 1998. 2. History of ventricular tachycardia. 3. Ischemic cardiomyopathy. 4. Diabetes. 5. History of right lower extremity DVT. 6. Hypertension. 7. Hypothyroid. 8. Depression. 9. Peripheral artery disease. 10. GERD. 11. History of atrial fibrillation. PAST SURGICAL HISTORY: 1. Pacemaker placement. 2. Two-vessel CABG in 1998. 3. Battery replacement for her pacemaker in January of 2018. 4. Cholecystectomy. 5. . HOME MEDICATIONS: 1. Bactroban apply b.i.d. 2. Chlordiazepoxide 1 cap p.o. t.i.d. 3. Citalopram 10 mg p.o. daily. 4. Lantus 30 units q.a.m., 27 units q.p.m. 5. Nitroglycerin 0.4 mg sublingual. 6. Magnesium oxide 400 mg p.o. b.i.d. 7. Levothyroxine 25 mcg p.o. daily. 8. Clopidogrel 75 mg p.o. daily. 9. Lactobacillus 1 cap p.o. b.i.d. 10. Calcium carbonate 650 mg p.o. b.i.d. 11. Tylenol Extra Strength 650 mg p.o. at bedtime. 12. Potassium chloride 40 mEq p.o. t.i.d. 13. Multivitamin 1 tablet p.o. daily. 14. Atorvastatin 80 mg p.o. at bedtime. 15. Aspirin 81 mg p.o. daily. 16. Metoprolol 50 mg p.o. b.i.d. 17. Furosemide 100 mg p.o. daily. 18. Omeprazole 40 mg p.o. daily. 19. Arixtra 7.5 mg subcu daily. ALLERGIES: Allergies to XARELTO. FAMILY HISTORY: Mother with a history of coronary artery disease. Sister with a history of hypertension. Father and sister with diabetes. No reported history of cancer. SOCIAL HISTORY: The patient reports that she quit smoking in 1998. Prior to that, she had a [id number] history of smoking. Denies any alcohol or illicit drug use. She is . She lives with her . Surrogate decision maker is her in the event she is unable to make her own decisions. She is a full code. REVIEW OF SYSTEMS: There is no fever. She does report decreased appetite. Denies any chest pain. She does report chronic lower extremity edema. Denies any cough, hemoptysis, or shortness of breath. Denies any nausea, vomiting, diarrhea, or abdominal pain. Denies any hematuria or dysuria. Denies any focal weakness or sensory loss. She does report change in her vision, increased difficulty reading the paper x1 week. Denies any dysphagia, arthralgias, or myalgias. She does report 2 open wounds to her left lower leg x2 weeks. Denies any depression. Does report increased anxiety. PHYSICAL EXAMINATION GENERAL: At this time, Ms. Collins is a 77-year-old female. She appears well sitting on the stretcher in the emergency room. She does not appear to be in any acute distress. VITAL SIGNS: Blood pressure 130/69, heart rate 62, respirations 18, O2 saturation 98%, temperature was 98.7. HEENT: Head is atraumatic, normocephalic. Eyes: EOMs are intact. Sclerae are anicteric and not pale. Oral mucosa appears to be moist. No oropharyngeal erythema. NECK: Supple. LUNGS: Clear to auscultation bilaterally. Crackles in the right base. No wheezes, rales, or rhonchi. CARDIAC: S1 and S2. Regular rate and rhythm. No murmurs, rubs or gallops. ABDOMEN: Soft and nontender. Bowel sounds are present x4. EXTREMITIES: Pulses are +2 bilaterally. She is able to move all 4 extremities with 5/5 strength. She does have edema, +1 pitting, to bilateral lower extremities. NEUROLOGIC: She is awake, alert, and oriented x3. Speech is clear. Thought process is intact. No gross focal deficits. SKIN: She does have 2 round, small open areas noted to the left lower leg. DIAGNOSTIC STUDIES/LAB DATA: WBCs are 4.1, RBCs 3.77, hemoglobin 10.9, hematocrit was 33, platelet count was 132. INR was 1.03, aPTT was 39.4. Sodium 136, potassium 4.1, chloride 102, carbon dioxide was 30, anion gap of 4, BUN was 24, creatinine 0.88, glucose was 222, lactic acid 1.3, calcium 9.3, magnesium 1.9. AST was 31, ALT was 23, alkaline phosphatase was 114. Troponin was 0.01. C-reactive protein was 1.89. BNP 291. TSH was 4.52. Urine color was yellow; cloudy; 7.0 pH; specific gravity 1.010; protein was negative; ketones were negative; urine blood was 1+; urine nitrites, bilirubin, urobilirubin, urine leukocyte esterase were negative; wbc's were absent; rbc's 1 +; squamous epithelial cells were present; amorphous crystals were present; urine bacteria was 2+. Stool occult heme positive. CT of the brain: Diffuse hypoattenuation of periventricular and subcortical white matter suggestive of chronic small vessel ischemic changes, progressed from 2016, recommend further evaluation of MRI of the brain in a nonacute setting. No acute intracranial pathology. She had a chest x-ray, radiologist's impression: Stable elevation of the right hemidiaphragm. She had an electrocardiogram, which showed sinus rhythm at a rate of 63 with left bundle branch block. ASSESSMENT AND PLAN: Ms. Collins is a 77-year-old female with a past medical history significant for coronary artery disease, history of ventricular tachycardia, ischemic cardiomyopathy, diabetes, history of right lower extremity deep venous thrombosis, hypertension, hypothyroid, depression, peripheral artery disease, and atrial fibrillation, who presented to the emergency room with weakness and confusion x1 week. Due to her weakness, we were asked to see and evaluate her for admission. She will be admitted under observation for: 1. Weakness. I suspect this is probably related to some underlying deconditioning. I think it will be beneficial to have the patient have a PT evaluation. This also could be related to urinary tract infection. She does have positive bacteria in her urine. At this time, we will order PT evaluation for the morning. I will get orthostatic vital signs. I will give her some gentle hydration overnight. 2. Suspect urinary tract infection. Her urine does show +1 blood, squamous epithelial cells, and bacteria +2. I will place her on ceftriaxone 1 g IV q.24 hours and culture is currently pending. 3. Methicillin-resistant Staphylococcus aureus wound to the left lower extremity. I will place her on doxycycline. She does have mild erythema, but no pain in the lower extremity. I will place her on doxycycline 100 mg p.o. b.i.d. to cover for methicillin-resistant Staphylococcus aureus as well as ceftriaxone, which should also cover staphylococcus. 4. Diabetes. The patient currently takes Lantus at home. I will continue her on a.c. and h.s. Accu-Chek with lispro sliding scale and Lantus 30 units in the a.m. and 27 in the p.m. as her home dose. 5. History of deep venous thrombosis in the right lower extremity. We will continue her on Arixtra 7.5 mg subcu daily. 6. Cardiomyopathy. I will hold her Lasix today and resume tomorrow. I will continue her metoprolol as previously prescribed. 7. Hypothyroid. We will continue her levothyroxine. 8. Coronary artery disease. I will continue on her metoprolol and Lasix as previously prescribed and atorvastatin 80 mg p.o. daily, clopidogrel 70 mg p.o. daily. 9. Positive Occult stool- Will trend H/H and monitor for further bleeding, it is reported that the patient has external hemorrhoids and the rectal exam showed streaking blood on the stool. Her H/H is at her baseline, if there is further bleeding we will stop her anticoagulation and consult GI. 10. FEN. She can have a heart-healthy, decaf-okay diet. 11. Code status. She is a full code. 12. DVT prophylaxis. We will continue her Arixtra. 13. Disposition. She will be placed on observation. TIME SPENT: Time spent on this patient was 60 minutes, greater than half of that time was spent [id number] with the patient, obtaining my history and physical, the other half of the time was spent going over my plan of care and implementing my plan of care. I have discussed with my attending, Dr. Esmer Lind, and she is in agreement with my plan. SSOA TRAN, [place] [id number]/[facility] #: [id number] JEANETH
[2018-04-08] MEDS: Levothyroxine TAB* 25 MCG TAB PO SCH (05:25)
[2018-04-08 08:16] LABS: Hematocrit 33 % (35-47); Hemoglobin 10.7 g/dl (12.0-16.0); Mean Corpuscular HGB Conc 32 g/dl (31-36); Mean Corpuscular Hemoglobin 29 pg (27-31); Mean Corpuscular Volume 89 fL (80-97); Mean Platelet Volume 8.4 fL (7.4-10.4); Platelet Count 123 10^3/ul (150-450); Red Blood Count 3.75 10^6/ul (4.00-5.40); Red Cell Distribution Width 15 % (10.5-15); White Blood Count 5.5 10^3/ul (3.5-10.8)
[2018-04-08] MEDS: Insulin LISPRO* 1 UNITS UNIT SUBCUT SCH ×3 (08:39→17:40)
--- NOTE | 2018-04-08 08:44 | PN ---
Subjective Date of Service: 04/08/18 Interval History: Ms. Barber reports that she is feeling well. When asked about the weakness and confusion that led to her being brought to the hospital, she states, "well, that 's what my daughter said." She denies chest pain, SOB, nausea, or abdominal pain. She notes that she has had 2 small ulcerations to the inner aspect of her left ankle for a month or more. She has not noted any redness or drainage to these areas. They appear to be unchanged. Objective Active Medications: Acetaminophen (Tylenol Tab*) 650 mg PO Q4H PRN Al Hydrox/Mg Hydrox/Simethicone (Maalox Plus*) 30 ml PO Q6H PRN Aspirin (Aspirin Ec Tab*) 81 mg PO DAILY ELIAS Atorvastatin Calcium (Lipitor*) 80 mg PO BEDTIME ELIAS Citalopram Hydrobromide (Celexa Tab*) 10 mg PO DAILY ELIAS Clopidogrel Bisulfate (Plavix Tab*) 75 mg PO DAILY ELIAS Dextrose (D50w Syringe 50 Ml*) 12.5 gm IV PUSH .FOR FS < 60 - SS PRN Doxycycline Hyclate (Vibramycin Cap(*)) 100 mg PO BID ELIAS Fondaparinux (Arixtra*) 7.5 mg SUBCUT DAILY ELIAS Furosemide (Lasix Tab*) 100 mg PO DAILY ELIAS Ceftriaxone Sodium 1 gm/ (Sodium Chloride) 50 mls @ 200 mls/hr IVPB Q24H ELIAS Insulin Glargine (Lantus(*)) 27 units SUBCUT QPM ELIAS Insulin Glargine (Lantus(*)) 30 units SUBCUT QAM ELIAS Insulin Human Lispro (Humalog*) 0 units SUBCUT AC ELIAS; Protocol Levothyroxine Sodium (Synthroid Tab*) 25 mcg PO 0600 ELIAS Loperamide HCl (Imodium Cap*) 2 mg PO .SEE ORDER PRN Magnesium Oxide (Magox 400 Tab*) 400 mg PO BID ELIAS Metoprolol Tartrate (Lopressor Tab*) 50 mg PO BID ELIAS Multivitamins/Minerals (Theragran/Minerals Tab*) 1 tab PO DAILY ELIAS Mupirocin (Bactroban 2 % Oint*) 1 applic TOPICAL BID ELIAS Pantoprazole Sodium (Protonix Tab (Nf)) 40 mg PO DAILY ELIAS Potassium Chloride (Klor Con Er Tab*) 40 meq PO TID ELIAS Vital Signs: Temp Pulse Resp BP Pulse Ox 98.1 F 62 18 129/53 96 04/08/18 04:10 04/08/18 04:10 04/08/18 04:10 04/08/18 04:10 04/08/18 04:10 Oxygen Devices in Use Now: None Appearance: Female sitting up in bed in NAD Eyes: No Scleral Icterus Ears/Nose/Mouth/Throat: Mucous Membranes Moist Respiratory: Symmetrical Chest Expansion and Respiratory Effort, Clear to Auscultation Cardiovascular: NL Sounds; No Murmurs; No JVD, No Edema Abdominal: NL Sounds; No Tenderness; No Distention Extremities: No Edema Skin: - - 2 1 cm oblong uclerations to left medial ankle, no erythema, no drainage Neurological: Alert and Oriented x 3, NL Muscle Strength and Tone Nutrition: Taking PO's Result Diagrams: 04/08/18 08:03 04/08/18 08:03 Microbiology and Other Data: . Assess/Plan/Problems-Billing Assessment: Ms. Collins is a 77 yo F with a PMH of DM who was admitted on 04/07/18 with concern for altered mental status and confusion with possible UTI. - Patient Problems (1) Weakness Comment: - With confusion - ? bacteremia due to frequent history of same of unclear etiology. Plan to continue ceftriaxone for now, do not suspect UTI based on UA results. Patient had hx of vulvar infection, treated and is now asymptomatic. - Monitor blood cultures, if positive will consult Dr. Ford who has followed with her in the past. (2) MRSA (methicillin resistant staph aureus) culture positive Comment: - Lower extremity ulcer x 2, no evidence of active infection - Continue doxycycline for now (3) UTI (urinary tract infection) Comment: - Do not suspect UTI based on UA results, unclean specimen. (4) Type II diabetes mellitus Comment: - Glucose 60-180's - Continue lispro SS and lantus (5) CAD (coronary artery disease) Comment: - Continue ASA, plavix, metoprolol, lipitor and arixtra. (6) Afib Comment: - Heart rate regular - Continue metoprolol and arixtra (7) Depression Comment: - Continue citalopram (8) HTN (hypertension) Comment: - Normotensive, SBP 100-140's - Continue metoprolol, furosemide (9) GERD (gastroesophageal reflux disease) Comment: - Continue pantoprazole. (10) History of automatic internal cardiac defibrillator (AICD) Comment: - No malignant arrhythmias noted (11) DVT prophylaxis Comment: - Continue Arixtra (12) Full code status Comment: Status and Disposition: OBV. Anticipate discharge to home when medically stable.
[2018-04-08] MEDS ORDERED: Insulin GLARGINE(*) 1 UNITS UNIT SUBCUT SCH (09:00)
[2018-04-08] MEDS: Potassium Chlor TAB* 20 MEQ TAB.ER PO SCH ×3 (09:02→20:06)
[2018-04-08] MEDS: DOXYcycline CAP(*) 100 MG PO SCH ×2 (09:02→20:06)
[2018-04-08] MEDS: Metoprolol Tartrate TAB* 50 mg PO SCH ×2 (09:03→20:06)
[2018-04-08] MEDS: Citalopram TAB* 10 MG PO SCH (09:03)
[2018-04-08] MEDS: Multivitamins/Minerals TAB PO SCH (09:03)
[2018-04-08] MEDS: Clopidogrel TAB* 75 MG PO SCH (09:04)
[2018-04-08] MEDS: Magnesium Oxide TAB* 400 MG PO SCH ×2 (09:04→20:06)
[2018-04-08] MEDS: Aspirin EC TAB* 81 MG TAB.EC PO SCH (09:04)
[2018-04-08] MEDS: CMCS Pantoprazole TAB (NF) 40 MG TAB PO SCH (09:04)
[2018-04-08] MEDS: Furosemide TAB* 40 MG PO SCH (09:05)
[2018-04-08] MEDS: Fondaparinux* 7.5 MG/0.6 ML SYRINGE SUBCUT SCH (09:09)
[2018-04-08] MEDS: Mupirocin 2% OINT* TUBE TOPICAL SCH ×2 (09:21→20:06)
[2018-04-08] MEDS: cefTRIAXone(*) 1 GM in NS 0.9% 50 ML* 50 ML IVPB SCH (16:23)
[2018-04-08] MEDS: Insulin GLARGINE(*) 1 UNITS UNIT SUBCUT SCH (18:20)
[2018-04-08] MEDS: Atorvastatin* 80 MG TAB PO SCH (20:06)
[2018-04-09] MEDS: Levothyroxine TAB* 25 MCG TAB PO SCH (05:31)
--- NOTE | 2018-04-09 08:07 | PN ---
Subjective Date of Service: 04/09/18 Interval History: Ms. Collins denies complaint today and is eager for discharge to home. She reports that the incident that led to her not being brought to the hospital was related to not being able to get up off the toilet. She notes that she has had weakness, requiring a lift chair, but that she has never been quite this weak before. Her daughter notes that she says things that are "off the wall" at times but that she seems back to baseline now. Physical therapy report that she was independent with transfers and mobility though she does recommend use of a walker. Objective Active Medications: Acetaminophen (Tylenol Tab*) 650 mg PO Q4H PRN Al Hydrox/Mg Hydrox/Simethicone (Maalox Plus*) 30 ml PO Q6H PRN Aspirin (Aspirin Ec Tab*) 81 mg PO DAILY ELIAS Atorvastatin Calcium (Lipitor*) 80 mg PO BEDTIME ELIAS Citalopram Hydrobromide (Celexa Tab*) 10 mg PO DAILY ELIAS Clopidogrel Bisulfate (Plavix Tab*) 75 mg PO DAILY ELIAS Dextrose (D50w Syringe 50 Ml*) 12.5 gm IV PUSH .FOR FS < 60 - SS PRN Doxycycline Hyclate (Vibramycin Cap(*)) 100 mg PO BID ELIAS Fondaparinux (Arixtra*) 7.5 mg SUBCUT DAILY ELIAS Furosemide (Lasix Tab*) 100 mg PO DAILY ELIAS Ceftriaxone Sodium 1 gm/ (Sodium Chloride) 50 mls @ 200 mls/hr IVPB Q24H ELIAS Insulin Glargine (Lantus(*)) 27 units SUBCUT QPM ELIAS Insulin Glargine (Lantus(*)) 30 units SUBCUT QAM ELIAS Insulin Human Lispro (Humalog*) 0 units SUBCUT AC ELIAS; Protocol Levothyroxine Sodium (Synthroid Tab*) 25 mcg PO 0600 ELIAS Loperamide HCl (Imodium Cap*) 2 mg PO .SEE ORDER PRN Magnesium Oxide (Magox 400 Tab*) 400 mg PO BID ELIAS Metoprolol Tartrate (Lopressor Tab*) 50 mg PO BID ELIAS Multivitamins/Minerals (Theragran/Minerals Tab*) 1 tab PO DAILY ELIAS Mupirocin (Bactroban 2 % Oint*) 1 applic TOPICAL BID ELIAS Pantoprazole Sodium (Protonix Tab (Nf)) 40 mg PO DAILY ELIAS Potassium Chloride (Klor Con Er Tab*) 40 meq PO TID ELIAS Vital Signs: Temp Pulse Resp BP Pulse Ox 97.5 F 60 20 139/62 90 04/09/18 04:21 04/09/18 04:21 04/09/18 04:21 04/09/18 04:21 04/09/18 04:21 Oxygen Devices in Use Now: None Appearance: Female sitting up in chair in NAD Eyes: No Scleral Icterus Ears/Nose/Mouth/Throat: Mucous Membranes Moist Respiratory: Symmetrical Chest Expansion and Respiratory Effort, Clear to Auscultation Cardiovascular: NL Sounds; No Murmurs; No JVD, No Edema Abdominal: NL Sounds; No Tenderness; No Distention Extremities: No Edema Skin: No Rash or Ulcers Neurological: Alert and Oriented x 3, NL Muscle Strength and Tone Result Diagrams: 04/08/18 08:03 04/08/18 08:03 Microbiology and Other Data: . Assess/Plan/Problems-Billing Assessment: Ms. Collins is a 77 yo F with a PMH of DM who was admitted on 04/07/18 with concern for altered mental status and confusion with possible UTI. - Patient Problems (1) Weakness Comment: - Resolved - With confusion, no clear etiology - No evidence of infection. Blood cultures negative. Stop ceftriaxone. (2) MRSA (methicillin resistant staph aureus) culture positive Comment: - Lower extremity ulcer x 2, no evidence of active infection - Stop doxycycline, monitor (3) UTI (urinary tract infection) Comment: - Do not suspect UTI based on UA results, unclean specimen. (4) Type II diabetes mellitus Comment: - Glucose 60-180's - Continue lispro SS and lantus (5) CAD (coronary artery disease) Comment: - Continue ASA, plavix, metoprolol, lipitor and arixtra. (6) Afib Comment: - Heart rate regular - Continue metoprolol and arixtra (7) Depression Comment: - Continue citalopram (8) HTN (hypertension) Comment: - Normotensive, SBP 100-140's - Continue metoprolol, furosemide (9) GERD (gastroesophageal reflux disease) Comment: - Continue pantoprazole. (10) History of automatic internal cardiac defibrillator (AICD) Comment: - No malignant arrhythmias noted (11) Anemia Comment: - Hgb stable at 10 - GUIAC positive, will need outpatient follow up. Has a history of melena and GI bleed bakc in 2015. - Recommend close follow up GI outpatient. (12) DVT prophylaxis Comment: - Continue Arixtra (13) Full code status Comment: Status and Disposition: OBV. Discharge to home.
[2018-04-09 08:12] VITALS: BP 128/51
[2018-04-09] MEDS: Insulin LISPRO* 1 UNITS UNIT SUBCUT SCH (08:12)
[2018-04-09] MEDS: Mupirocin 2% OINT* TUBE TOPICAL SCH (08:22)
[2018-04-09] MEDS: Fondaparinux* 7.5 MG/0.6 ML SYRINGE SUBCUT SCH (08:22)
[2018-04-09] MEDS: CMCS Pantoprazole TAB (NF) 40 MG TAB PO SCH (08:22)
[2018-04-09] MEDS: Magnesium Oxide TAB* 400 MG PO SCH (08:22)
[2018-04-09] MEDS: DOXYcycline CAP(*) 100 MG PO SCH (08:22)
[2018-04-09] MEDS: Metoprolol Tartrate TAB* 50 mg PO SCH (08:23)
[2018-04-09] MEDS: Citalopram TAB* 10 MG PO SCH (08:23)
[2018-04-09] MEDS: Potassium Chlor TAB* 20 MEQ TAB.ER PO SCH (08:23)
[2018-04-09] MEDS: Multivitamins/Minerals TAB PO SCH (08:23)
[2018-04-09] MEDS: Furosemide TAB* 40 MG PO SCH (08:23)
[2018-04-09] MEDS: Clopidogrel TAB* 75 MG PO SCH (08:23)
[2018-04-09] MEDS: Aspirin EC TAB* 81 MG TAB.EC PO SCH (08:23)
[2018-04-09] MEDS ORDERED: Insulin GLARGINE(*) 1 UNITS UNIT SUBCUT SCH ×2 (09:00→18:00)
--- NOTE | 2018-04-09 22:27 | DS ---
CC: Dr. Ashford * [facility] MEDICINE DISCHARGE SUMMARY: DATE OF ADMISSION: 04/07/18 DATE OF DISCHARGE: 04/09/18 PRIMARY CARE PHYSICIAN: Dr. Ashford. ATTENDING PHYSICIAN: Dr. Mesha Horn * (dictation provided by Zoe Avila NP ). PRIMARY DIAGNOSIS: Weakness, resolved. SECONDARY DIAGNOSES: 1. Insulin-dependent type 2 diabetes. 2. Coronary artery disease with 2-vessel bypass in 1998. 3. History of ventricular tachycardia. 4. Ischemic cardiomyopathy. 5. History of right lower extremity deep venous thrombosis. 6. Hypertension. 7. Hypothyroidism. 8. Depression. 9. Peripheral artery disease. 10. Gastroesophageal reflux disease. 11. History of atrial fibrillation. PAST SURGICAL HISTORY: 1. Pacemaker placement. 2. Two-vessel CABG in 1998. 3. Battery replacement for her pacemaker in January 2018. 4. Cholecystectomy. 5. . MEDICATIONS: 1. Bactroban 2% cream, 1 application topically b.i.d. 2. Chlordiazepoxide and clidinium cap, 1 cap p.o. t.i.d. 3. Citalopram 10 mg p.o. daily. 4. Lantus insulin 30 units in the a.m., 27 units in the p.m. 5. Nitroglycerin sublingually p.r.n. chest pain. 6. Magnesium oxide 400 mg p.o. b.i.d. 7. Levothyroxine 25 mcg p.o. daily. 8. Clopidogrel 75 mg p.o. daily. 9. Lactobacillus 1 cap p.o. b.i.d. 10. Calcium carbonate 600 mg p.o. b.i.d. 11. Tylenol 650 mg p.o. at bedtime. 12. Potassium chloride 40 mEq p.o. t.i.d. 13. Multivitamin with mineral 1 tab p.o. daily. 14. Atorvastatin 80 mg p.o. at bedtime. 15. Aspirin 81 mg p.o. daily. 16. Metoprolol tartrate 50 mg p.o. b.i.d. 17. Furosemide 100 mg p.o. daily. 18. Omeprazole 40 mg p.o. daily. 19. Arixtra 7.5 mg subcutaneously daily. HOSPITAL COURSE: Ms. Collins is a 77-year-old female with a past medical history as outlined above, who presented to the emergency room on 04/07/18 with concern for weakness and confusion. Please see the dictated H and P from Sosa Tran NP, for complete details. In brief, the patient and her family had reported that she had become increasingly weak over the past week, although over the past 7 days, immediately prior to admission, the patient was unable to get up off the toilet. The family also had concern that at times the patient seemed to say things that were "off the wall." The family reported that she had a wound to her left lower leg, that had been there for at least 2 weeks, possibly more. In the emergency room, her workup was concerning initially for possible urinary tract infection with 2+ bacteria, but no leukocytosis, no fever. Ms. Collins was admitted to the hospital and initially treated with antibiotics for urinary tract infection. The urine culture ultimately came back negative and antibiotics were discontinued for this purpose. In addition, the patient had a swab of the ulcer to her left lower leg that was positive for MRSA and doxycycline was initiated. However, on examination, the patient has no erythema , no drainage, no evidence of abscess or infection to that area, and I believe the MRSA is simply a colonization. Therefore, antibiotics have been discontinued. The patient showed no other evidence of infection. Her blood cultures were negative and again, the urine culture was negative. The chest x- ray shows no acute process. Her CT brain shows no acute process. Ms. Collins has been evaluated by the physical therapist and she is independent with mobility including rising to stand from a chair. It has been recommended that she return home with a walker and that she continue with outpatient physical therapy. I did speak with the patient's daughter about her confusion. The patient's daughter notes that at times she says things that are unusual but then will be normal. I questioned whether or not the patient has early dementia with waxing and waning features but see no focal deficits to suggest any neurological abnormality. Recommended that the patient and the family consider follow up with Neurology for further evaluation and testing. The only other finding during this hospitalization is that the patient has chronic anemia. Her hemoglobin is stable at 10.7; however, she did have a stool occult blood that was positive. She is asymptomatic. Vitals are stable. Again, hemoglobin is also stable. The patient has a history of past colonoscopy in 2014 for concern of a GI bleed. I recommend that the patient follow up closely with her primary care physician for any further consideration of evaluation for GI bleed, especially considering that she is on Arixtra. Ms. Collins is medically stable for discharge to home. I have encouraged her and the family for her to return to the hospital if she has any worsening symptoms or there is a concern for worrisome symptoms. DISPOSITION: To home. DIET: Low fat, low salt, low carb. ACTIVITY: As tolerated with physical therapy recommended. FOLLOWUP PLAN: 1. Please follow up with Dr. Ashford regarding this acute hospitalization. 2. Please consider followup with Gastroenterology regarding evaluation for positive stool guaiac with stable hemoglobin. TIME SPENT: Approximately 75 minutes was spent in the discharge of this patient , more than half the time spent with the patient at the bedside reviewing the events leading up to this hospitalization, performing the physical examination, and reviewing the plan of care. ZOE AVILA NP [id number]/[facility] #: [id number] JEANETH
== END 2018-04-09 12:45 | disposition home or self-care (01) ==
LOC: ED 12:15 → MEDTELE 15:17
PROVIDERS: ADMIT Nurse Practitioner; ATTEND Internal Medicine
DX: R53.1 Weakness (principal); E11.9 Type 2 diabetes mellitus without complications; I25.810 Atherosclerosis of coronary artery bypass graft(s) without angina pectoris; I25.5 Ischemic cardiomyopathy; I10 Essential (primary) hypertension; E03.9 Hypothyroidism, unspecified; F32.9 Major depressive disorder, single episode, unspecified; R15.9 Full incontinence of feces; I73.9 Peripheral vascular disease, unspecified; K21.9 Gastro-esophageal reflux disease without esophagitis; R19.5 Other fecal abnormalities; I48.91 Unspecified atrial fibrillation; L97.909 Non-pressure chronic ulcer of unspecified part of unspecified lower leg with unspecified severity; A49.02 Methicillin resistant Staphylococcus aureus infection, unspecified site; Z79.4 Long term (current) use of insulin; Z86.79 Personal history of other diseases of the circulatory system; Z95.0 Presence of cardiac pacemaker; Z90.49 Acquired absence of other specified parts of digestive tract; Z79.82 Long term (current) use of aspirin; R41.0 Disorientation, unspecified
CPT/HCPCS: 36415; 70450; 71045; 80048; 80053; 81003; 81015; 82272; 82550; 83605; 83735; 83880; 84443; 84484; 85025; 85027; 85610; 85730; 86140; 86850; 86900; 86901; 87040; 87070; 87077; 87086; 87186; 87205; 87640; 87641; 93005; 96365; 96366; 96372; 99284; A9270-GY; G0378; G8978-GP-CI; G8979-GP-CH; J0696

== ENCOUNTER 2018-07-11 06:21 | Emergency (ER) | payer MEDICARE, BC ==
--- OUTSIDE RECORDS SUMMARY | 2018-07-11 06:32 | XMS REPORT | Continuity of Care Document ---
:1940 External Reference #:[id number] Author Name Zoe Ayon PA-C Address [address] [place] [address] Care Team Providers Name Role Phone Daryl Ashford M.D. Care Team Information Delivery Helper Unavailable Daryl Ashford M.D. Primary Care Physician Unavailable Payers Date Identification Numbers Payment Provider Subscriber Policy Number: [id number] [place] [employer] [employer] Elisabeth Collins PayID: [id number] [address] [place] [address] Policy Number: [id number] [facility] Elisabeth Collins PayID: [id number] [address] [place] [address] Advance Directives Description No Information Available Problems Date Description Provider Status Onset: 08/08/2004 Type 2 diabetes mellitus Daryl Cruz M.D. Active Onset: 05/12/2015 Sudden hearing loss Daryl Cruz M.D. Active Family History Date Family Member(s) Observation Comments General Diabetes General Heart Disease Social History Type Date Description Comments Sex Unknown Occupation Medically Retired Tobacco Use Start: Unknown End: Unknown Former Cigarette Smoker Tobacco Use Start: Unknown Never Smoked Cigars Tobacco Use Start: Unknown Never Smoked A Pipe Smokeless Tobacco Never Used Smokeless Tobacco ETOH Use does not drink alcohol Tobacco Use Start: Unknown End: Unknown Patient is a former smoker Smoking Status Reviewed: 12/16/17 Patient is a former smoker Allergies, Adverse Reactions, Alerts Description No Known Drug Allergies Medications Medication Date Status Form Strength Qnty SIG Indications Ordering Provider Nitroquick / Active Tablets 0.4mg Unknown 0000 Atorvastatin / Active Tablets 80mg As Breiman, Calcium 0000 directed Daryl Kaminski M.D. Klor-Con M20 / Active Tablets ER 20Meq take as Breiman, 0000 directed Daryl Kaminski M.D. Multivitamins / Active Capsules 1 by mouth Self 0000 every day Metoprolol / Active Tablets 50mg 1 by mouth Breiman, Tartrate 0000 every day Daryl Kaminski M.D. Furosemide / Active Tablets 40mg 1 by mouth Breiman, 0000 every day Daryl Kaminski M.D. Levsin / Active Tablets 0.125mg As Breiman, 0000 directed Daryl Kaminski M.D. Omeprazole / Active Capsules 40mg one by Breiman, 0000 DR danni one Daryl per tiffanie Kaminski M.D. Lantus Solostar / Active Solution 100Unit/ML once daily Breiman, 0000 Pen-Inject Daryl Kaminski M.D. Calcium 600 / Active Tablets 600mg 1 by mouth Breiman, 0000 twice a Daryl Kaminski M.D. Fondaparinux / Active Solution 2.5mg/0.5M As Breiman, Sodium 0000 L directed Daryl Kaminski M.D. Probiotic / Active Capsules 1 by mouth Breiman, 0000 every day Daryl Kaminski M.D. Fluconazole / Active Tablets 50mg as Breiman, 0000 directed Daryl Kaminski M.D. Mupirocin / Active Ointment 2% Esposito, 0000 Margy Lazar Clopidogrel / Active Tablets 75mg Breiman, Bisulfate 0000 Daryl Kaminski M.D. Levothyroxine / Active Tablets 25mcg Breiman, Sodium 0000 Daryl Kaminski M.D. Dexamethasone 05/12/ Hx 24mg/ml 3ml for H91.22 Daryl Hall 2015 - injection Strominge 06/28/ francisco bolaños M.D. 2015 Lortab 08/08/ Hx Tablets 5mg;500 mg 30tabs 1-2 PO Q4H 478.30 Daryl Hall 2004 - Pain Strominge 05/12/ Cady bolaños 2015 Furosemide 00/00/ Hx Tablets 40mg Unknown 2015 Metoprolol 00/00/ Hx Tablets 50mg Unknown 2015 Actos 00/00/ Hx Tablets 30mg Unknown 2015 Aspirin 00/00/ Hx Gelcaps 325mg 30unit Unknown 0000 - 2015 Klor-Con M10 00/00/ Hx Tablets 10Meq Unknown 2015 Niaspan 00/00/ Hx Capsules 500mg Unknown 2015 Lipitor 00/00/ Hx Tablets 10mg 14Days Unknown 2015 Lipitor 00/00/ Hx Tablets 40mg Unknown 2015 Cozaar 00/00/ Hx Tablets 25mg Unknown 2015 Zetia /00/ Hx Tablets 10mg Unknown 2015 Fosamax /00/ Hx Tablets 70mg Unknown 2015 Norolin MPH /00/ Hx Unknown 2015 Tylenol PM 00/ Hx Unknown 2015 Multivitamins 00/00/ Hx Tablets Unknown 2015 Plavix /00/ Hx Tablets 75mg Unknown 2015 Niaspan 00/00/ Hx Tablets ER 500mg 1 by mouth Dejon, 0000 - every day Daryl 11/27Melanie Kaminski M.D. 2018 Immunizations CPT Code Status Date Vaccine Lot # 34563 Given Unknown Pneumococcal Vaccine 2Yrs Or Older 6[address]65 Given Unknown Influenza Virus Vaccine, 3 Years Of Age And Above, Intramuscular Vital Signs Date Vital Result Comment 06/17/2018 8:51am Weight 195.00 lb Weight 88.452 kg Height 65 inches 5'5" Height in cm's 165.1 cm BMI (Body Mass Index) 32.4 kg/m2 12/17/2017 2:08pm Weight 195.00 lb Weight 88.452 kg Height 65 inches 5'5" Height in cm's 165.1 cm BMI (Body Mass Index) 32.4 kg/m2 11/30/2017 1:34pm Weight 195.00 lb Weight 88.452 kg Height 65 inches 5'5" Height in cm's 165.1 cm BMI (Body Mass Index) 32.4 kg/m2 11/27/2017 8:40am Weight 195.00 lb Weight 88.452 kg Height 65 inches 5'5" Height in cm's 165.1 cm BMI (Body Mass Index) 32.4 kg/m2 06/29/2015 1:40pm Weight 205.00 lb Weight 92.988 kg Height 65 inches 5'5" Height in cm's 165.1 cm BMI (Body Mass Index) 34.1 kg/m2 06/01/2015 1:21pm BP Systolic 148 mmHg BP Diastolic 80 mmHg Heart Rate 66 /min Respiratory Rate 17 /min Weight 205.00 lb Weight 92.988 kg Height 65 inches 5'5" Height in cm's 165.1 cm BMI (Body Mass Index) 34.1 kg/m2 05/25/2015 8:22am BP Systolic 139 mmHg BP Diastolic 69 mmHg Heart Rate 67 /min Respiratory Rate 17 /min Weight 205.00 lb Weight 92.988 kg Height 65 inches 5'5" Height in cm's 165.1 cm BMI (Body Mass Index) 34.1 kg/m2 05/18/2015 2:17pm BP Systolic 166 mmHg BP Diastolic 97 mmHg Heart Rate 73 /min Respiratory Rate 17 /min Weight 205.00 lb Weight 92.988 kg Height 65 inches 5'5" Height in cm's 165.1 cm BMI (Body Mass Index) 34.1 kg/m2 05/12/2015 1:32pm BP Systolic 149 mmHg BP Diastolic 77 mmHg Heart Rate 71 /min Respiratory Rate 17 /min Weight 205.00 lb Weight 92.988 kg Height 65 inches 5'5" Height in cm's 165.1 cm BMI (Body Mass Index) 34.1 kg/m2 09/22/2004 10:57am BP Systolic 148 mmHg BP Diastolic 80 mmHg Heart Rate 64 /min Respiratory Rate 16 /min 08/08/2004 9:40am BP Systolic 138 mmHg BP Diastolic 84 mmHg Heart Rate 68 /min Respiratory Rate 16 /min Results Test Date Facility Test Result H/L Range Note Laboratory test [facility] Blood Urea 18 mg/ dL N 6-24 finding 6 c/o Department [place] [address] [phone] Creatinine [facility] Creatinine 0.68 mg/dL N 0.51-0.95 6 c/o [place] [address] [phone] Egfr Non- 84.8 N >60 Egfr 109.1 N >60 1 Laboratory test 09/28/2004 [facility] CBC w/Manual normal finding c/o Department [place] [address] [phone] Xray 09/26/2004 [facility] Chest [place] nad [address] & [place] [address] [phone] Laboratory test 09/23/2004 [facility] CBC normal finding c/o Department of Laboratories w/[place] [address] Diff [phone] Laboratory test 08/10/2004 [facility] CBC normal finding c/o [facility] of Laboratories w/[place] [address] Diff [phone] Xray 08/10/2004 [facility] [place] interstitial edema [address] [place] [address] [phone] 1 Because ethnic data is not always [...] 15-29 5 Kidney failure <15 (or dialysis) Procedures Date Code Description Status 06/17/2018 53573 Removal Wax Impaction Completed 11/27/2017 78347 Removal Wax Impaction Completed 06/26/2016 68219 Tympanometry Completed 06/26/2016 12843 Comprehensive Audiogram Completed 06/29/2015 90642 Comprehensive Audiogram Completed 06/01/2015 94883 Labyrinthotomy, Transtympantic Injection Completed 05/25/2015 85573 Pure Tone - Air Conduction Only Completed 05/25/2015 04906 Labyrinthotomy, Transtympantic Injection Completed 05/18/2015 94778 Labyrinthotomy, Transtympantic Injection Completed 05/12/2015 22388 Tympanometry Completed 05/12/2015 33101 Comprehensive Audiogram Completed 10/06/2004 47088 Fiberoptic Laryngoscopy Completed 09/28/2004 60639 Laryngoplasty, Not Specified Completed 07/07/2004 35607 Fiberoptic Laryngoscopy Completed 04/07/2004 20620 Fiberoptic Laryngoscopy Completed 02/15/2004 47643 Fiberoptic Laryngoscopy Completed Encounters Type Date Location Provider Dx Diagnosis Office Visit 12/17/2017 [facility] Daryl Santana1.312D Laceration without 1:45p 04/23/07 Cady Cruz foreign body of left ear, subs encntr Office Visit 11/30/2017 [facility] Daryl Hall S01.312A Laceration without 2:00p 04/23/07 Cady Cruz foreign body of left ear, init encntr Office Visit 06/29/2015 [facility] Daryl Hall H91.22 Sudden idiopathic 2:00p 04/23/07 Cady Cruz hearing loss, left ear Office Visit 05/12/2015 [facility] Daryl Hall H91.22 Sudden idiopathic 1:45p 04/23/07 Cady Cruz hearing loss, left ear Office Visit 09/22/2004 [facility] Daryl Hall 478.30 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 VC/Lar Glotiis Unspec 440.9 Atherosclerosis/Generalized & Unspecified Office Visit 02/15/2004 [facility] Daryl Hall 478.30 Paralysis Of 9:30a 04/23/07 Cady Cruz VC/Lar Glotiis Unspec 784.49 Hoarseness /Other Plan of Treatment Future Appointment(s):12/16/2018 8:30 am - ABELARDO MolinaC at [facility] - JESSY Molina-CH61.23 Impacted cerumen, bilateral
[2018-07-11] MEDS ORDERED: NS 0.9% 1000 ML** 1,000 ML IV ONE (06:43)
--- NOTE | 2018-07-11 06:48 | ED ---
Abdominal Pain/Female - HPI Summary HPI Summary: Patient is a 77-year-old female presents emergency department for acute abdominal pain that started just prior to arrival. Patient notes pain is mostly located to her left lower quadrant. Past medical history of CAD, morbid obesity, diabetes, HTN, GERD, PVD. Patient denies recent illness, fevers, chest pain, shortness of breath, vomiting, diarrhea, urinary symptoms. She denies abdominal surgeries. Symptoms are moderate in severity. No current modifying factors. Pt. resides at home with her . 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 Hx Last Menstrual Period: N/A Pain Intensity: 5 Allergies/Adverse Reactions: Allergies Allergy/AdvReac Type Severity Reaction Status Date / Time rivaroxaban [From Xarelto] Allergy Bleeding Verified 07/11/18 06:32 Home Medications: Home Medications Acetaminophen [Tylenol] 650 mg PO Q6H PRN 07/11/18 [History Confirmed 07/11/18] Citalopram Hydrobromide [Citalopram HBr] 10 mg PO DAILY 07/11/18 [History Confirmed 07/11/18] Donepezil HCl [Aricept] 5 mg PO DAILY 07/11/18 [History Confirmed 07/11/18] PMH/Surg Hx/FS Hx/Imm Hx Previously Healthy: Yes Endocrine/Hematology History: Reports: Hx Anticoagulant Therapy - arixtra and plavix , Hx Diabetes Denies: Hx Thyroid Disease Cardiovascular History: Reports: Hx Angina, Hx Auto Implanted Cardiovert Defib, Hx Cardiac Arrest, Hx Coronary Artery Disease, Hx Deep Vein Thrombosis, Hx Hypercholesterolemia, Hx Hypertension, Hx Pacemaker/ICD - 2005, Hx Peripheral Vascular Disease, Other Cardiovascular Problems/Disorders - VT with VF ICD going off Denies: Hx Congestive Heart Failure Respiratory History: Denies: Other Respiratory Problems/Disorders GI History: Reports: Hx Gastrointestinal Bleed History: Reports: Hx Kidney Stones - IN THE PAST, Other Problems/ Disorders - recurrent UTI's, urethral dilation 03/2018 Denies: Hx Renal Disease Musculoskeletal History: Reports: Hx Arthritis Sensory History: Reports: Hx Cataracts, Hx Contacts or Glasses - Glasses, Hx Hearing Aid - right side, Hx Hearing Problem - Bilateral hearing loss Opthamlomology History: Reports: Hx Cataracts, Hx Contacts or Glasses - Glasses Neurological History: Denies: Hx Dementia, Hx Developmental Delay, Hx Headaches Psychiatric History: Reports: Hx Anxiety, Hx Depression - Cancer History Hx Chemotherapy: No Hx Radiation Therapy: No - Surgical History Surgery Procedure, Year, and Place: pacer/defib;. cabg;. right leg bypass aorto-fem;. c section;. 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; hx sepsis Denies: Traveled Outside the [place] in Last 30 Days - Family History Known Family History: Positive: Cardiac Disease, Diabetes, Other - High cholesterol - Social History Occupation: Retired Lives: With Family Alcohol Use: None Hx Substance Use: No Substance Use Type: Reports: None Hx Tobacco Use: Yes Smoking Status (MU): Former Smoker Type: Cigarettes Amount Used/How Often: 1-2 PPD Length of Time of Smoking/Using Tobacco: 39 YEARS Have You Smoked in the Last Year: No Review of Systems Constitutional: Negative Negative: Fever, Chills Eyes: Negative ENT: Negative Cardiovascular: Negative Negative: Palpitations, Chest Pain Respiratory: Negative Negative: Shortness Of Breath, Cough Positive: Abdominal Pain. Negative: Vomiting, Diarrhea, Nausea Genitourinary: Negative Negative: dysuria Neurological: Negative All Other Systems Reviewed And Are Negative: Yes Physical Exam Triage Information Reviewed: Yes Vital Signs On Initial Exam: Initial Vitals Temp Pulse Resp BP Pulse Ox 98.6 F 63 14 125/53 95 07/11/18 06:30 07/11/18 06:30 07/11/18 06:30 07/11/18 06:30 07/11/18 06:30 Vital Signs Reviewed: Yes Appearance: Positive: Well-Appearing - Pt. sitting up in bed in NAD. Appears uncomfortable but nontoxic. present. Skin: Positive: Warm, Dry Head/Face: Positive: Normal Head/Face Inspection Eyes: Positive: Normal, EOMI Neck: Positive: Supple Respiratory/Lung Sounds: Positive: Clear to Auscultation, Breath Sounds Present Cardiovascular: Positive: Normal, RRR Abdomen Description: Positive: Other: - Obese. Abd. is soft with tenderness and guarding to LLQ and suprapubic region. Small areas of ecchymosis noted to abd. wall secondary to Lovenox injections. Neurological: Positive: Normal, Alert, Oriented to Person Place, Time, CN Intact II-III Diagnostics - Vital Signs Vital Signs Temp Pulse Resp BP Pulse Ox 07/11/18 06:30 98.6 F 63 14 125/53 95 - Laboratory Result Diagrams: 07/11/18 07:28 07/11/18 07:28 Lab Statement: Any lab studies that have been ordered have been reviewed, and results considered in the medical decision making process. Abdominal Pain Fem Course/Dx - Course Course Of Treatment: Pt. presenting for diffuse lower abd. pain. She is afebrile with stable VS. ECG done at 0635 shows a sinus rhythm of 61 bpm, normal axis, LBBB, unchanged from prior tracing. Labs are unremarkable. U/A is contaminated, will wait for culture. CT scan of abd/pelvis shows constipation without acute findings, per radiology. On re-exam pt. resting comfortably. Suspect her pain is from constipation. Pt. notes she is rx an antidiarrheal from PCP that she has been on for awhile. WIll tx constipation with magnesium citrate. Advised to dc antidiarrheal at this time. To call PCP tomorrow for a close f.u apt. TO increase fluids and fiber in diet. WIll return to ER if sxs change or worsen. Pt. and family understand and agree with plan. - Diagnoses Differential Diagnosis: Positive: Abdominal Aortic Aneurysm, ACS, Appendicitis, Constipation, Diverticulitis Provider Diagnoses: Abdominal pain, Constipation Discharge - Sign-Out/Discharge Documenting (check all that apply): Patient Departure Patient Received Moderate/Deep Sedation with Procedure: No - Discharge Plan Condition: Good Disposition: HOME Patient Education Materials: Constipation (ED), Abdominal Pain (ED) Referrals: Daryl Ashford MD [Primary Care Provider] - Additional Instructions: Call PCP today to schedule a close follow up appointment Use magnesium citrate when your return home for constipation Increase fluids and fiber Stop taking anti-diarrhea medication Will call if urine culture is positive Return to ER for increased pain, fever, vomiting, or if concerned - Billing Disposition and Condition Condition: GOOD Disposition: Home
[2018-07-11 07:41] LABS: ABS Basophils 0 10^3/ul (0-0.2); ABS Eosinophils 0.2 10^3/ul (0-0.6); ABS Lymphocytes 1.2 10^3/ul (1.0-4.8); ABS Monocytes 0.5 10^3/ul (0-0.8); ABS Neutrophils 4.2 10^3/ul (1.5-7.7); ABS Nucleated RBC 0 10^3/ul; Eosinophil % 3.1 %; Hematocrit 34 % (33-41); Hemoglobin 10.9 g/dL (12.0-16.0); Lymphocyte % 20.1 %; Mean Corpuscular HGB Conc 32 g/dL (31-36); Mean Corpuscular Hemoglobin 28 pg (27-31); Mean Corpuscular Volume 88 fL (80-97); Mean Platelet Volume 8.4 fL (7.4-10.4); Nucleated Red Blood Cells % 0; Platelet Count 124 10^3/uL (150-450); Red Blood Count 3.89 10^6 /uL (3.70-4.87); Red Cell Distribution Width 16 % (10.5-15); White Blood Count 6.1 10^3/uL (3.5-10.8)
[2018-07-11 07:41] LABS: Urine Appearance Cloudy; Urine Bacteria 1+ (Absent); Urine Bilirubin Negative (Negative); Urine Blood Negative (Negative); Urine Color Yellow; Urine Glucose Negative (Negative); Urine Ketones Negative (Negative); Urine Nitrite Negative (Negative); Urine Protein Negative (Negative); Urine Red Blood Cell 2+(6-10/hpf) (Absent); Urine Specific Gravity 1.016 (1.010-1.030); Urine Squamous Epithelial Cell Present (Absent); Urine Urobilinogen Negative (Negative); Urine White Blood Cell 3+(>20/hpf) (Absent)
[2018-07-11] MEDS ORDERED: Iodixanol* (CONTRAST) 320 MG/ML 100 ML SDV IV ONE (07:49)
[2018-07-11 07:53] LABS: Albumin 3.4 g/dL (3.2-5.2); Albumin/Globulin Ratio 0.9 (1-3); C Reactive Protein 5.52 mg/L (<8.01); Calcium 9.1 mg/dL (8.6-10.3); EGFR African American 96.8 (>60); Globulin 3.8 g/dL (2-4); Potassium 4.2 mmol/L (3.5-5.0); Total Bilirubin 0.5 mg/dL (0.2-1.0); Total Protein 7.2 g/dL (6.4-8.9)
[2018-07-11 07:55] LABS: Troponin I 0.01 ng/mL (<0.04)
[2018-07-11] MEDS ORDERED: Magnesium CITRATE* 300 ML BTL PO ONE (09:44)
[2018-07-11 10:04] VITALS: BP 115/48
== END 2018-07-11 10:03 | disposition home or self-care (01) ==
LOC: ED 06:21
DX: R10.32 Left lower quadrant pain (principal); K59.00 Constipation, unspecified; K57.30 Diverticulosis of large intestine without perforation or abscess without bleeding; E11.9 Type 2 diabetes mellitus without complications; I25.119 Atherosclerotic heart disease of native coronary artery with unspecified angina pectoris; I10 Essential (primary) hypertension; Z95.1 Presence of aortocoronary bypass graft; Z86.74 Personal history of sudden cardiac arrest; Z95.810 Presence of automatic (implantable) cardiac defibrillator; Z86.718 Personal history of other venous thrombosis and embolism; Z79.01 Long term (current) use of anticoagulants; I73.9 Peripheral vascular disease, unspecified; K21.9 Gastro-esophageal reflux disease without esophagitis; E66.01 Morbid (severe) obesity due to excess calories; Z90.49 Acquired absence of other specified parts of digestive tract; Z87.891 Personal history of nicotine dependence
CPT/HCPCS: 36415; 71045; 74177; 80053; 81003; 81015; 83605; 83690; 83735; 84484; 85025; 86140; 87086; 93005; 96360; 96361; 99283; A9270-GY; Q9967

== ENCOUNTER 2018-07-29 16:29 | Emergency (ER) | payer MEDICARE, BC ==
--- OUTSIDE RECORDS SUMMARY | 2018-07-29 17:00 | XMS REPORT | Continuity of Care Document ---
:1940 External Reference #:[id number] Author Name SpencerSuze Care Team Providers Name Role Phone Daryl Ashford MD Primary Care Physician Unavailable Payers Date Identification Numbers Payment Provider Subscriber Policy Number: [id number] Medicare Elisabeth Collins PayID: [id number] [address] [place] [address] Policy Number: [id number] [facility] Elisabeth Collins PayID: [id number] [address] [place] [address] Advance Directives Description No Information Available Problems [...] heart disease of Johanny Barba M.D. Active [place] coronary artery without angina pectoris Onset: 02/08/2015 Arteriosclerosis of coronary artery Johanny Barba M.D. Active bypass graft Onset: 01/28/2016 Chronic ischemic heart disease Johanny Barba M.D. Active Onset: 04/30/2017 Encounter for planned postprocedural Hunter Gill M.D., [facility], Active wound closure FSCAI Onset: 05/10/2017 Acute subendocardial infarction Johanny Barba M.D. Active Onset: 05/10/2017 Ventricular fibrillation Johanny Barba M.D. Active Onset: 05/10/2017 Paroxysmal atrial fibrillation Johanny Barba M.D. Active Family History Date Family Member(s) Observation Comments Father Cerebrovascular Accident (CVA) Mother Coronary Artery Disease (CAD) age 54 CAD Siblings 1 Sister aneurism, thoracic Social History Type Date Description Comments Sex Unknown Marital Status Occupation Retired Tobacco Use Start: Unknown End: Former Cigarette Smoker Pt denies ever Unknown smoking pipe, cigar, e-cigarettes, or using chewing tobacco. Smoking Status Reviewed: 07/18/18 Former Cigarette Smoker Pt denies ever smoking pipe, cigar, e-cigarettes, or using chewing tobacco. ETOH Use Never used alcohol Tobacco Use Start: Unknown End: Patient is a former quit in 1998 Unknown smoker Recreational Drug Use Denies Drug Use Exercise Type/Frequency Exercises regularly some walking Allergies, Adverse Reactions, Alerts Date Description Reaction Status Severity Comments 02/08/2015 Xarelto Bloody Stools Active Moderate 09/10/2013 NKDA Inactive Medications Medication Date Status Form Strength Qnty SIG Indications Ordering Provider Citalopram 02/12/ Active Tablets 10mg 90tab 1 by mouth Nathalia Castro Hydrobromide 2017 s every day Yaw Cuadra Magnesium Oxide 04/29/ Active Tablets 400mg 30tab 1 by mouth Hunter 2017 s twice Stefek, daily Cady, [facility], [facility] Lipitor / Active Tablets 80mg 30tab 1 [...] by mouth Unknown 0000 every day Multivitamins 00/ Active Capsules 90cap 1 capsule Unknown 0000 s daily Calcium 00/ Active 600mg 2 po qd Unknown 0000 Tylenol / Active Tablets 325mg as needed Unknown 0000 (pt usually take 2 before bed every night) Nitroglycerin / Active Patches 0.4mg/HR 1bott apply in Unknown 0000 24HR le morning for 12 hours, remove at night Lantus / Active Solution 100Unit/M 30 unit in Unknown 0000 L the am, 25in the PM, based on BS. Fondaparinux / Active Solution 7.5mg/0.6 1 Unknown Sodium 0000 ML injection lower abdomen daily Omeprazole / Active Capsules 40mg 1 by mouth Unknown [address] every day Probiotic / Active Tablets 1 tab bid Unknown [address] DR Levothyroxine / Active Tablets 25mcg 1 by mouth Unknown Sodium 0000 every day ( 1/2 hr 1 hour before break) Chlordiazepoxide / Active Capsules 5-2.5mg 1 cap Breiman, HCL/Clidinium 0000 three Daryl, Ortley times day MD ( morning, noon, night) Donepezil HCL / Active Tablets 5mg 1 every Unknown 0000 day Keflex 02/12/ Hx Capsules 250mg 3 times a Vinicio 2017 day for 3 D. Brand, .D. 2017 Keflex 02/04/ Hx Capsules 250mg 9caps 3 times a Vinicio 2017 day for 3 D. Brand, .D. 2017 Clopidogrel 04/29/ Hx Tablets 75mg 90tab 1 by mouth Hunter Bisulfate 2017 - s every day Bridget, M.D., 2019 [facility], [facility] Cyclobenzaprine 08/11/ Hx Tablets 5mg Johanny HCL 2013 - Jameson, 05/19/ M.D. 2014 Niaspan / Hx Tablets 500mg 30tab 1 by mouth Unknown 0000 - s bid (pt 10/18/ not 2018 taking) Arixtra / Hx 10ml injection Unknown 0000 - 2014 Humulin 70/30 / Hx as Unknown 0000 - directed 2014 Sertraline HCL / Hx Tablets 50mg 90tab 1 by mouth Unknown 0000 - s every day 2015 Xarelto / Hx Tablets 20mg 180ta 1 by mouth Unknown 0000 - bs every day 2014 Nitrostat / Hx Tablets 0.4mg one sl Unknown 0000 - Sub q5min up to 3 doses 2019 as needed Hyoscyamine / Hx Tablets 0.125mg 1 tab [...] three 04/03/ times per 2018 day Fluconazole / Hx Tablets 150mg once daily Breiman, 0000 - x 3 days Daryl 2018 Nystatin / Hx Cream [id number] Perez, 0000 - t/GM Tonja Wilson 06/05/ N.P. 2018 Nystatin / Hx Powder [id number] topical Unknown 0000 - t/GM twice a day as 2018 needed Cephalexin / Hx Capsules 500mg Take One Unknown 0000 - Capsule By 11/01/ Mouth 2018 Three Times A Day For Seven Days Immunizations Description No Information Available Vital Signs Date Vital Result Comment 07/18/2018 9:20am Height 64.5 inches 5'4.50" Weight 190.25 lb w/shoes Heart Rate 62 /min reg BP Systolic Sitting 112 mmHg Lue reg cuff BP Diastolic Sitting 60 mmHg Lue reg cuff Respiratory Rate 15 /min BMI (Body Mass Index) 32.1 kg/m2 Ejection Fraction 40-45% 08/20/17 echo 04/04/2018 2:18pm Height 64.5 inches 5'4.50" Heart [...] Result H/L Range Note Laboratory test 02/04/2018 [facility] Surgical SEE RESULT [address] [place] [address] [phone] Pre Cath Panel 01/25/2018 [facility] Partial 37.2 seconds High 26.0-36.[address] [place] [address] PTT [phone] CBC Auto Diff 01/25/2018 [facility] White Blood 4.8 10^3/uL N 3.5-10.[address] [place] [address] [phone] Red Blood Count 3.89 10^6/uL Low 4.00-5.40 [...] Red Blood Cells % 0.1 Inr/Protime 01/25/2018 [facility] Inr 0.98 N 0.77-1.[address] [place] [address] [phone] Basic Metabolic 01/25/2018 [facility] Sodium 137 mmol/L N 135- [address] [place] [address] [phone] Potassium 4.3 mmol/L N 3.5-5.0 Chloride 101 mmol/L N 101-111 Co2 Carbon Dioxide 31 mmol/L N 22-32 Anion Gap 5 mmol/L N 2-11 Glucose 190 mg/dL High 70-100 Blood Urea Nitrogen 25 mg/dL High 6-24 Creatinine 0.90 mg/dL N 0.51-0.95 BUN/Creatinine Ratio 27.8 High 8-20 Calcium 9.5 mg/dL N 8.6-10.3 Egfr Non- 60.9 >60 Egfr 73.7 >60 2 CBC Auto Diff 12/05/2017 [facility] White Blood 6.0 10^3/uL N 3.5-10.[address] [place] [address] [phone] Red Blood Count 3.96 10^6/uL Low 4.00-5.40 [...] Red Blood Cells % 0.1 Immunoglobulins 10/20/2017 [facility] Immunoglobulin G 2020 Abnormal 767 - 3 Serum Quant [address] mg/dL 1590 [place] [address] [phone] Immunoglobulin M 72 mg/dL 37 - 286 Immunoglobulin A 710 mg/dL Abnormal 61 - 356 Protein 10/20/2017 [facility] Total 7.5 g/dL 6.3 - Electrophoresis [address] Protein(Pep) 7.9 [place] [address] [phone] Albumin 2.9 g/dL Abnormal 3.4-4.7 Alpha-1 Globulin 0.4 g/dL Abnormal 0.1-0.3 Alpha-2 Globulin 0.9 g/dL 0.6-1.0 Beta Globulin 1.1 g/dL 0.7-1.2 Gamma Globulin 2.2 g/dL Abnormal 0.6-1.6 Albumin/Globulin Ratio 0.63 Impression See Comment 4 Laboratory test 05/03/2017 [facility] C Reactive 10.92 mg/L High < 5.[address] [place] [address] [phone] Comp Metabolic 05/03/2017 [facility] Sodium 135 mmol/L N 133- [address] [place] [address] [phone] Potassium 4.1 mmol/L N 3.5-5.0 Chloride 99 [...] Egfr 118.5 >60 6 CBC Auto Diff 05/03/2017 [facility] White Blood 6.5 10^3/uL N 3.5-10.[address] [place] [address] [phone] Red Blood Count 3.71 10^6/uL Low 4.0-5.4 [...] 0-2 Nucleated Red Blood Cells % 0 CBC Auto Diff 04/11/2017 [facility] White Blood 6.3 10^3/uL N 3.5-10.[address] [place] [address] [phone] Red Blood Count 4.03 10^6/uL N 4.0-5.4 [...] Cells % 0.1 CBC Auto Diff 01/01/2017 [facility] White Blood 4.5 10^3/uL N 3.5-10.[address] Count [place] [id number] [phone] Red Blood Count 3.83 10^6/uL Low 4.0-5.4 [...] 9 um3 N 7.4-10.4 Oncology CBC 12/04/2013 [facility] White Blood 6.3 10^3/uL N 4.8-10.8 Auto Diff [address] [place] [address] [phone] Red Blood Count 4.19 10^6/uL N 4.0-5.4 [...] % N 0-2 Factor 5 Leiden 10/12/2011 [facility] Factor 5 Negative Negative Mutation [address] [place] [address] Result [phone] Factor 5 Leiden Mut Interp . () 7 Reviewed By SEE BELOW () 8 Factor II 10/12/2011 [facility] Prothrombin Negative Negative (Prothrombin) [address] [place] [address] [phone] [place] [address] Mutation Interp . () 9 Reviewed By SEE BELOW () 10 1 SEE RESULT BELOW Name: ELISABETH COLLINS : [address]: Vinicio Justin MD Acct: [id number] Unit: [id number] AGE: 77 Location: [facility] Re02/04/18 SEX: F Status: REG [facility] SPEC: [id number] STEFANO: 02/04/18- [facility] DR: Vinicio Justin MD REQ: [id number] RECD: 02/04/18 STATUS: SOUT _ ORDERED: LEVEL 1 FINAL DIAGNOSIS Event monitor, removal: Foreign body (Medtronic generator) (gross diagnosis) CLINICAL HISTORY No history given. GROSS DESCRIPTION The specimen is received fresh with no source identified and a requisition labeled, ICD Pacemaker Generator, and consists of a 6.3 x 5.0 x 1.3 cm silver metallic bio medical technician. The following inscription is identified: Medtronic Demetri II VR [id number] [facility]. Per established hospital medical staff protocol, no tissue is submitted. Gross only. Signed by and Reported on: Kendal Elam MD 02/05/18 1142 END OF REPORT DEPARTMENT OF PATHOLOGY, [address] [place] [address] Hunter Griffin M.D. Director [facility] # [id number] 2 Because ethnic data is not always [...] <15 (or dialysis) 3 Test Performed by: [place] [address] 4 RESULT: Polyclonal hypergammaglobulinemia Test Performed by: [place] [address] 5 Acute inflammation: >10.00 6 Because ethnic [...] thrombosis. If clinically indicated, suggest Coagulation Consultation 10796 (Thrombophilia Profile) to complete the evaluation for an inherited or acquired thrombosing disorder (i.e., thrombophilia). This test is a direct mutation analysis of leukocyte genomic DNA by the Invader Assay system (Invader, [employer], [place], [place]). Analyte Specific Reagent. This test was developed and its performance characteristics determined by [facility]. It has not been cleared or approved by the U.S. Food and Drug Administration. 8 RESULT: GNINA Bingham Test Performed by: [address] [address] Management Manager: Toby Shabazz III, M.D. 9 This individual DOES NOT have the Prothrombin [id number] mutation. Although the Prothrombin G63544N mutation is absent, the individual may have other genetic and environmental risk factors for thrombosis. If clinically indicated, suggest Coagulation Consultation 28337 (Thrombophilia Profile) to complete the evaluation for an inherited or acquired thrombosing disorder (i.e., thrombophilia). Consider genetic consultation and counseling of potentially affected family members regarding laboratory testing. This test is a direct mutation analysis of leukocyte genomic DNA by the Invader Assay system (Invader, [employer], [place], [place]). Analyte Specific Reagent. This test was developed and its performance characteristics determined by [facility]. It has not been cleared or approved by the U.S. Food and Drug Administration. 10 RESULT: GINNA Bingham Test Performed by: [address] [address] Management Manager: Toby Shabazz III, M.D. Procedures Date Code Description Status 07/18/2018 66010 Interrogation Implant Cardiovasc Monitor System Incl Completed Analysis Int 07/18/2018 11407 Icd eval w/iterative adjment single lead Icd Completed 04/04/2018 59354 Interrogation Implant Cardiovasc Monitor System Incl Completed Analysis Int 04/04/2018 02756 Interrogation Implant Cardiovasc Monitor System Incl Completed Analysis Int 04/04/2018 13162 Icd eval w/iterative adjment single lead Icd Completed 04/04/2018 41687 Icd eval w/iterative adjment single lead Icd Completed 02/04/2018 86921 Moderate Sedation Services; Same Phys Intl 15 Mins; PT >=5 Completed Years 02/04/2018 30965 Insert/Replace Icd W/Generator Completed 01/14/2018 52393 Icd Check Single,Dual Or Multiple In Person W/DR Incl Completed Heart Rhyth 01/14/2018 07929 Icd Check Single,Dual Or Multiple In Person W/DR Incl Completed Heart Rhyth 12/11/2017 28254 Icd Check Single,Dual Or Multiple In Person W/DR Incl Completed Heart Rhyth 12/11/2017 46224 Icd Check Single,Dual Or Multiple In Person W/DR Incl Completed Heart Rhyth 11/19/2017 41286 Icd eval w/iterative adjment single lead Icd Completed 11/19/2017 33886 Icd eval w/iterative adjment single lead Icd Completed 10/10/2017 92577 Echocardiography, Transesophageal, Real Time W/Image 2D Completed W/W/O M-M 10/10/2017 30946 Pulse Wave/Continuous-Interp.RPT Completed 10/10/2017 67632 Color Flow Doppler/Interp & Reprt Completed 10/10/2017 68136 Moderate Sedation Services; Same Phys Intl 15 Mins; PT >=5 Completed Years 08/20/2017 63215 ECHO Transthorasic Realtime 2D W Doppler & Color Flow Hosp Completed 08/20/2017 55143 Treadmill Interp/Report Only Completed 08/20/2017 22025 Stress Test Supervsn W/Out I/R Completed 07/25/2017 04804 Icd eval w/iterative adjment single lead Icd Completed 07/25/2017 38313 Icd eval w/iterative adjment single lead Icd Completed 04/30/2017 97737 EKG Tracing & Interpretation Completed 04/27/2017 31659 EKG, Interpretation Only Completed 04/26/2017 34701 EKG, Interpretation Only Completed 04/25/2017 25901 Cardiac Cath,LT Hrtmincl Intraprocedural Ink LT Ventricul Completed Mammary 04/25/2017 31713 EKG, Interpretation Only Completed 04/25/2017 60150 Percutaneous Transcatheter Placement Of Intracoronary Completed Stent 04/24/2017 50005 Treadmill Interp/Report Only Completed 04/24/2017 86429 Stress Test Supervsn W/Out I/R Completed 04/22/2017 08700 Echocardiography, Transesophageal, Real Time W/Image 2D Completed W/W/O M-M 04/22/2017 11211 Pulse Wave/Continuous-Interp.RPT Completed 04/22/2017 78345 Color Flow Doppler/Interp & Reprt Completed 04/21/2017 48408 EKG, Interpretation Only Completed 04/20/2017 05066 EKG, Interpretation Only Completed 04/18/2017 88369 ECHO Transthorasic Realtime 2D W Doppler & Color Flow Hosp Completed 01/26/2017 20909 EKG Tracing & Interpretation Completed 12/22/2016 62204 Icd Eval W/Iterative Adjustmnt Single Lead Icd Completed 09/06/2016 67965 Icd Eval Sing,Dual,Multi Lead Remote Recpt Transm Tech Rev Completed Tech S 09/06/2016 62527 Icd Check Remote Up To 90 Days Single,Dual,Multiple Lead Completed 09/06/2016 43628 Icd Check Remote Up To 90 Days Single,Dual,Multiple Lead Completed 05/03/2016 77987 Icd eval w/iterative adjment single lead Icd Completed 01/28/2016 58871 EKG Tracing & Interpretation Completed 12/29/2015 24733 Icd eval w/iterative adjment single lead Icd Completed 08/25/2015 18219 Icd eval w/iterative adjment single lead Icd Completed 02/08/2015 15174 EKG Tracing & Interpretation Completed 12/30/2014 21500 Icd Check Remote Up To 90 Days Single,Dual,Multiple Lead Completed 12/30/2014 21782 Icd Eval Sing,Dual,Multi Lead Remote Recpt Transm Tech Rev Completed Tech S 08/27/2014 69199 Icd Check Single,Dual Or Multiple In Person W/DR Incl Completed Heart Rhyth 05/13/2014 18414 Icd Eval Sing,Dual,Multi Lead Remote Recpt Transm Tech Rev Completed Tech S 05/13/2014 04245 Icd Check Remote Up To 90 Days Single,Dual,Multiple Lead Completed 05/11/2014 24823 EKG Tracing & Interpretation Completed 01/06/2014 99037 Icd Eval Sing,Dual,Multi Lead Remote Recpt Transm Tech Rev Completed Tech S 01/06/2014 12965 Icd Eval Sing,Dual,Multi Lead Remote Recpt Transm Tech Rev Completed Tech S 01/06/2014 17981 Icd Check Remote Up To 90 Days Single,Dual,Multiple Lead Completed 09/08/2013 28829 Icd eval w/iterative adjment single lead Icd Completed 08/28/2013 52458 ECHO Transthoracic, Real-Time 2D With Doppler And Color Completed Flow 04/28/2013 01946 Icd Eval Sing,Dual,Multi Lead Remote Recpt Transm Tech Rev Completed Tech S 04/28/2013 40918 Icd Check Remote Up To 90 Days Single,Dual,Multiple Lead Completed 12/25/2012 97504 Icd eval w/iterative adjment single lead Icd Completed 08/22/2012 32944 Icd eval w/iterative adjment single lead Icd Completed 08/22/2012 77054 EKG Tracing & Interpretation Completed 04/25/2012 79645 Icd eval w/iterative adjment single lead Icd Completed Encounters Type Date Location Provider Dx Diagnosis Office Visit 04/09/2018 [facility] Zeo Avila, N.P. 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 cardiac pacemaker I10 Essential (primary) hypertension I25.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[place] coronary artery w/o ang pctrs I49.01 Ventricular fibrillation I48.0 Paroxysmal atrial fibrillation Office Visit 11/02/2017 [facility] Robert Dumont B95.4 Oth streptococcus 8:30a For Infectious Cady Curry as the cause of Diseases diseases classd elswhr E11.9 Type 2 diabetes mellitus without complications Z95.0 Presence of cardiac pacemaker S81.801D Unspecified open wound, right lower leg, subs encntr Office Visit 10/19/2017 [facility] Robert Dumont B95.4 Oth streptococcus 11:30a For Infectious Cady Curry as the cause of Diseases diseases classd elsr J18.9 Pneumonia, unspecified organism R78.81 Bacteremia Office Visit 10/14/2017 [facility]18.9 Pneumonia, 9:43a Assoc,anushka Villagomez, SUSTAINABILITY COACH unspecified Hospitalists organism B95.4 Oth streptococcus as the cause of diseases classd elsr L89.312 Pressure ulcer of right buttock, stage 2 Office Visit 10/13/2017 [facility]18.9 Pneumonia, 9:42a Assanushka ortega, SUSTAINABILITY COACH unspecified Hospitalists organism I10 Essential (primary) hypertension E11.9 Type 2 diabetes mellitus without complications Office Visit 10/12/2017 [facility]18.9 Pneumonia, 9:42a Assocanushka, SUSTAINABILITY COACH unspecified Hospitalists organism I10 Essential (primary) hypertension E11.9 Type 2 diabetes mellitus without complications Office Visit 10/11/2017 8:04a [facility] Robert Marin18.9 Pneumonia, Infectious Cady Curry unspecified Diseases organism R78.81 Bacteremia Z95.0 Presence of cardiac pacemaker Office Visit 10/11/2017 [facility] J18.9 Pneumonia, 9:42a Assanushka ortega, SUSTAINABILITY COACH unspecified Hospitalists organism I10 Essential (primary) hypertension E11.9 Type 2 diabetes mellitus without complications Office Visit 10/10/2017 [facility]18.9 Pneumonia, 9:41a Assoc,anushka Tran, SUSTAINABILITY COACH unspecified Hospitalists organism R78.81 Bacteremia I48.91 Unspecified atrial fibrillation Office Visit 10/09/2017 7:51a [facility] Robert Marin18.9 Pneumonia, Infectious Cady Curry unspecified Diseases organism R78.81 Bacteremia Z95.0 Presence of cardiac pacemaker Office Visit 10/09/2017 [facility]18.9 Pneumonia, 9:41a Assoc,anushka Tran, SUSTAINABILITY COACH unspecified Hospitalists organism B95.4 Oth streptococcus as the cause of diseases classd elswhr R78.81 Bacteremia I48.91 Unspecified atrial fibrillation R53.1 Weakness Office Visit 10/08/2017 7:50a [facility] Luiza Dumont J18.9 Pneumonia, Infectious Cady Curry unspecified Diseases organism R78.81 Bacteremia Z95.0 Presence of cardiac pacemaker [facility] R68.83 Chills 9:40a Assoc,pc II MNadine (without Hospitalists fever) R11.0 Nausea R53.81 Other malaise R00.0 Tachycardia, unspecified Office Visit 08/20/2017 10:40a [facility] Zoe Avila, R07.2 Precordial pain Assoc,pc N.P. Hospitalists I25.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[place] coronary artery w/o ang pctrs E11.9 Type 2 diabetes mellitus without complications Z86.79 Personal history of other diseases of the circulatory system Office Visit [facility]/18[facility] R07.2 Precordial pain 10:39a Assoc,pc II MNadine Hospitalists I25.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[place] coronary artery w/o ang pctrs E11.9 Type 2 diabetes mellitus without complications Z86.79 Personal history of other diseases of the circulatory system Office Visit 07/26/2017 2:30p [facility] Nathalia SElmer I49.01 Ventricular Of [place] Foster, N.P. fibrillation I48.0 Paroxysmal atrial fibrillation I25.5 Ischemic cardiomyopathy Z95.810 Presence of automatic (implantable) cardiac defibrillator Office Visit 06/06/2017 10:10a [facility] Robert Dumont R21 Rash and other For Ni Curry M.D. nonspecific skin Diseases eruption Office Visit 05/17/2017 2:00p [facility] Robert Dumont Z86.19 Personal history For Ni Curry M.D. 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 [place] pectoris I21.4 Non-St elevation (Nstemi) myocardial infarction I49.01 Ventricular fibrillation I48.0 Paroxysmal atrial fibrillation I25.5 Ischemic cardiomyopathy M79.606 Pain in leg, unspecified Office Visit 04/30/2017 2:20p [facility] Hunter Gill, Z48.812 Encntr for Of [place] AT [facility], surgical aftcr FSCAI following surgery on the circ sys I25.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[place] coronary artery w/o ang pctrs Office Visit 04/27/2017 3:32p [facility] Parminder Castro I25.10 Athscl heart Of [place] Cook, DO disease of FACC [place] coronary artery w/o ang pctrs I47.2 Ventricular tachycardia Z95.810 Presence of automatic (implantable) cardiac defibrillator I50.9 Heart failure, unspecified I48.91 Unspecified atrial fibrillation Office Visit 04/26/2017 9:40a [facility] Hunter Gill, I25.10 Athscl heart Of [place] AT [facility], [facility], disease of [place] FSCAI coronary artery w/o ang pctrs Office Visit 04/26/2017 3:31p [facility] Parminder Castro I47.2 Ventricular Of [place] Cook, DO tachycardia FACC Z95.810 Presence of automatic (implantable) cardiac defibrillator I50.9 Heart failure, unspecified I48.91 Unspecified atrial fibrillation Office Visit 04/25/2017 3:30p [facility] Johanny Barba I48.0 Paroxysmal atrial Of [place] M.D. fibrillation I10 Essential (primary) hypertension Office Visit 04/24/2017 4:14p [facility] Vinicio Dumont I47.2 Ventricular Of [place] Brand, M.D. tachycardia I25.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[place] coronary artery w/o ang pctrs Office [facility].81 Bacteremia Infectious Diseases Cady Curry B95.1 Streptococcus, group B, causing diseases classd elswhr R93.1 Abnormal findings on dx imaging of heart and cor circ I45.81 Long QT syndrome Z95.810 Presence of automatic (implantable) cardiac defibrillator Office Visit 04/23/2017 3:28p [facility] Johanny Barba, A41.9 Sepsis, Of [place] M.D. unspecified organism I48.0 Paroxysmal atrial fibrillation Office Visit 04/22/2017 3:26p [facility] Johanny Barba, R78.81 Bacteremia Of [facility] M.D. I47.2 Ventricular tachycardia Office Visit 04/21/2017 3:25p [facility] Johanny Barba, A41.9 Sepsis, Of [facility] M.D. unspecified organism I47.2 Ventricular tachycardia I25.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[place] coronary artery w/o ang pctrs I42.9 Cardiomyopathy, unspecified I48.0 Paroxysmal atrial fibrillation Office Visit 04/20/2017 3:22p [facility] Johanny Barba, I48.0 Paroxysmal atrial Of [facility] M.D. fibrillation Z95.810 Presence of automatic (implantable) cardiac defibrillator I47.2 Ventricular tachycardia Office Visit 04/18/2017 3:03p [facility] Julia R78.81 Bacteremia Infectious Diseases Cady Curry B95.1 Streptococcus, group B, [facility].89 Other general symptoms and signs Z95.0 Presence of cardiac pacemaker L03.315 Cellulitis of perineum Office Visit 01/26/2017 [place] Johanny Barba, I25.810 Atherosclerosis of 10:20a Cardiology Of M.D. CABG w/o angina [facility] [place] [facility] [place] pectoris I73.9 Peripheral vascular disease, unspecified I65.29 Occlusion and stenosis of unspecified carotid artery E78.00 Pure hypercholesterolemia, unspecified I10 Essential (primary) hypertension E11.8 Type 2 diabetes mellitus with unspecified complications I34.0 Nonrheumatic mitral (valve) insufficiency Z95.810 Presence of automatic (implantable) cardiac defibrillator Office Visit 01/28/2016 [place] Johanny Barba, Z95.810 Presence of 8:20a Cardiology Of M.D. automatic [facility] [place] [facility] [place] (implantable) cardiac defibrillator I25.810 Atherosclerosis of CABG w/o angina pectoris E78.00 Pure hypercholesterolemia, unspecified I10 Essential (primary) hypertension I25.5 Ischemic cardiomyopathy E11.8 Type 2 diabetes mellitus with unspecified complications Office Visit 02/08/2015 8:15a [facility] Johanny Barba, I73.9 Peripheral Of [facility]cher M.D. vascular disease, unspecified Z95.810 Presence of automatic (implantable) cardiac defibrillator I10 Essential (primary) hypertension E78.0 Pure hypercholesterolemia I25.810 Atherosclerosis of CABG w/o angina pectoris R94.31 Abnormal electrocardiogram [ECG] [EKG] I47.2 Ventricular tachycardia Office Visit 07/05/2014 [facility] Moy Monreal, 578.9 Hemorrhage 1:06p anushka Colbert M.D. [facility] Tract Unspec 285.1 Anemia Posthemorrhagic Acute 414.00 Coronary Atherosclerosis Unspec Type Vessel [place]/Graft 443.9 Peripheral Vascular Disease Unspec Office Visit 05/11/2014 [place] Johanny Barba, 414.02 Coronary 8:15a Cardiology Cady Atherosclerosis [facility] Autologous Vein Bypass Graft 250.90 Diabetes W/ Unspec Compl Type II Or Unspec Controlled 272.0 Hypercholesterolemia Pure 401.9 Hypertension Unspec 427.1 Paroxysmal Ventricular Tachycardia V45.02 Cardiac Defibrillator Automatic Implantable Postsurgical Office Visit 09/10/2013 9:15a [facility] Johanny Barba, 443.9 Peripheral Of [facility] Cady Vascular Disease Unspec 272.0 Hypercholesterolemia Pure 401.9 Hypertension Unspec 414.02 Coronary Atherosclerosis Autologous Vein Bypass Graft V45.02 Cardiac Defibrillator Automatic Implantable Postsurgical Office Visit 12/25/2012 [place] Johanny Barba, 414.02 Coronary 9:45a Cardiology Cady Atherosclerosis [facility] Autologous Vein Bypass Graft 443.9 Peripheral Vascular Disease Unspec 401.9 Hypertension Unspec 272.0 Hypercholesterolemia Pure Office Visit 05/10/2012 9:48a [facility] Moy Monreal, 682.6 Cellulitis & Assoc,anushka Lazar Abscess Leg Hospitalists Except Foot 250.90 Diabetes W/ Unspec Compl Type II Or Unspec Controlled 278.00 Obesity Unspec V12.51 History Personal Venous Thromb & Embolism Office Visit 05/08/2012 9:48a [facility] Ander 682.6 Cellulitis & Assoc,anushka Winkler N.P. Abscess Leg Hospitalists Except Foot 250.90 Diabetes W/ Unspec Compl Type II Or Unspec Controlled 278.00 Obesity Unspec V12.51 History Personal Venous Thromb & Embolism Office Visit 05/06/2012 9:47a [facility] Moy Monreal, 276.51 Dehydration Assoc,anushka Lazar Hospitalists 008.8 Enteritis Due To Other Organism Not Elsewhere Class 443.81 Peripheral Angiopathy Disease Class Elsewhere Office Visit 05/04/2012 9:46a [facility] Taye [place], 276.51 Dehydration Assoc,pc N.P. Hospitalists 008.8 Enteritis Due To Other Organism Not Elsewhere Class 682.8 Cellulitis & Abscess Other Spec Sites 443.81 Peripheral Angiopathy Disease Class Elsewhere Office Visit 04/25/2012 [place] [facility] Pacer 414.02 Coronary 9:15a Cardiology Of Schedule Atherosclerosis [facility] Autologous Vein Bypass Graft 427.1 Paroxysmal Ventricular Tachycardia 443.9 Peripheral Vascular Disease Unspec 401.9 Hypertension Unspec Plan of Treatment Future Appointment(s):08/20/2018 11:00 am - Nathalia Cuadra N.P. at [facility]08/20/2018 10:30 am - [facility] Pacer Schedule at [facility]07/31/2018 11:00 am - [facility] ECHO Schedule at [facility]2018 - Nathalia Cuadra N.P.I42.9 Cardiomyopathy, [id number] Presence of automatic (implantable) cardiac dpmnpvqkbxepzE21.0 Paroxysmal atrial fibrillationNew Orders:Echocardiogram, Scheduled: 07/31/18Comments:You had 5 hours of an atrial fibrillation;Arixtra prevents you from having a strokeThe rates can be high at times, so we need to make sure it is not happening that frequentlyYou may need a medication to suppress it.Follow up:PO rhythm check prior OV LS or Nathalia after echoI25.10 Atherosclerotic heart disease of [place] coronary artery withRecommendations:ok to stop clopidogrel
--- OUTSIDE RECORDS SUMMARY | 2018-07-29 17:00 | XMS REPORT | Continuity of Care Document ---
:1940 External Reference #:[id number] Author Name Rosalinda Dave Care Team Providers Name Role Phone Daryl Ashford MD Primary Care Physician Unavailable Payers Date Identification Numbers Payment Provider Subscriber Policy Number: [id number] Medicare Elisabeth Collins PayID: [id number] [address] [place] [address] Policy Number: [id number] [facility] Elisabeth Collins PayID: [id number] [address] [place] [address] Advance Directives Description No Information Available Problems [...] heart disease of Johanny Barba M.D. Active [place] coronary artery without angina pectoris Onset: 02/08/2015 Arteriosclerosis of coronary artery Johanny Barba M.D. Active bypass graft Onset: 01/28/2016 Chronic ischemic heart disease Johanny Barba M.D. Active Onset: 04/30/2017 Encounter for planned postprocedural Hunter Gill M.D., [facility], Active wound closure FSCAI Onset: 05/10/2017 [...] Bisulfate 2018 s every day Cady Gill, [facility], [facility] Magnesium Oxide 04/29/ Active Tablets 400mg 30tab 1 by mouth Hunter 2017 s twice rufus Gill M.D., [facility], [facility] Lipitor / Active Tablets 80mg [...] 1 cap Breiman, HCL/Clidinium 0000 three Daryl, [place] times day MD ( morning, noon, night) Keflex 02/12/ Hx Capsules 250mg 3 times a [place] 2017 - day for 3 D. Brand, .D2017 Keflex 02/04/ Hx Capsules 250mg 9caps 3 times a [place] 2017 - day for 3 D. Brand, .2017 Cyclobenzaprine 08/11/ Hx Tablets 5mg Johanny HCL 2013 - Jameson, M.D. 2014 Niaspan / Hx Tablets 500mg [...] 0000 - every day 2017 Ceftriaxone Sodium 00/ Hx Solution 2gm 2 grams Unknown 0000 - Rec daily iv home 2018 infusion ending 05/03/17 Hyoscyamine 00/ Hx Tablets 0.125mg 1 by mouth Unknown Sulfate 0000 - Sub three 04/03/ times per 2018 day Fluconazole / Hx Tablets 150mg once daily Breiman, 0000 - x 3 days Daryl, 2018 Nystatin / Hx Cream [id number] Chris, 0000 - t/GM Tonja Wilson 06/05/ N.P. 2018 Nystatin / Hx Powder 240852Njq topical Unknown 0000 - t/GM twice a [...] Result H/L Range Note Laboratory test 02/04/2018 [facility] Surgical SEE RESULT [address] [place] [address] [phone] Pre Cath Panel 01/25/2018 [facility] Partial 37.2 seconds High 26.0-36.[address] [place] [address] PTT [phone] CBC Auto Diff 01/25/2018 [facility] White Blood 4.8 10^3/uL N 3.5-10.[address] [place] [address] [phone] Red Blood Count 3.89 10^6/uL Low 4.00-5.40 [...] Red Blood Cells % 0.1 Inr/Protime 01/25/2018 [facility] Inr 0.98 N 0.77-1.[address] [place] [address] [phone] Basic Metabolic 01/25/2018 [facility] Sodium 137 mmol/L N 135- [address] [place] [address] [phone] Potassium 4.3 mmol/L N 3.5-5.0 Chloride 101 mmol/L N 101-111 Co2 Carbon Dioxide 31 mmol/L N 22-32 Anion Gap 5 mmol/L N 2-11 Glucose 190 mg/dL High 70-100 Blood Urea Nitrogen 25 mg/dL High 6-24 Creatinine 0.90 mg/dL N 0.51-0.95 BUN/Creatinine Ratio 27.8 High 8-20 Calcium 9.5 mg/dL N 8.6-10.3 Egfr Non- 60.9 >60 Egfr 73.7 >60 2 CBC Auto Diff 12/05/2017 [facility] White Blood 6.0 10^3/uL N 3.5-10.[address] [place] [address] [phone] Red Blood Count 3.96 10^6/uL Low 4.00-5.40 [...] Red Blood Cells % 0.1 Immunoglobulins 10/20/2017 [facility] Immunoglobulin G 2020 Abnormal 767 - 3 Serum Quant [address] mg/dL 15[address] [place] [address] [phone] Immunoglobulin M 72 mg/dL 37 - 286 Immunoglobulin A 710 mg/dL Abnormal 61 - 356 Protein 10/20/2017 [facility] Total 7.5 g/dL 6.3 - Electrophoresis [address] Protein(Pep) 7.9 [place] [address] [phone] Albumin 2.9 g/dL Abnormal 3.4-4.7 Alpha-1 Globulin 0.4 g/dL Abnormal 0.1-0.3 Alpha-2 Globulin 0.9 g/dL 0.6-1.0 Beta Globulin 1.1 g/dL 0.7-1.2 Gamma Globulin 2.2 g/dL Abnormal 0.6-1.6 Albumin/Globulin Ratio 0.63 Impression See Comment 4 CBC Auto Diff 05/03/2017 [facility] White Blood 6.5 10^3/uL N 3.5-10.[address] [place] [address] [phone] Red Blood Count 3.71 10^6/uL Low 4.0-5.4 [...] Blood Cells % 0 Laboratory test 05/03/2017 [facility] C Reactive 10.92 mg/L High < 5.00 [address] [place] [address] [phone] Comp Metabolic 05/03/2017 [facility] Sodium 135 mmol/L N 133- [address] [place] [address] [phone] Potassium 4.1 mmol/L N 3.5-5.0 Chloride 99 [...] 118.5 >60 6 CBC Auto Diff 04/11/2017 [facility] White Blood 6.3 10^3/uL N 3.5-10.[address] [place] [address] [phone] Red Blood Count 4.03 10^6/uL N 4.0-5.4 [...] Cells % 0.1 CBC Auto Diff 01/01/2017 [facility] White Blood 4.5 10^3/uL N 3.5-10.[address] [place] [address] [phone] Red Blood Count 3.83 10^6/uL Low 4.0-5.4 [...] 9 um3 N 7.4-10.4 Oncology CBC 12/04/2013 [facility] White Blood 6.3 10^3/uL N 4.8-10.8 Auto Diff [address] [place] [address] [phone] Red Blood Count 4.19 10^6/uL N 4.0-5.4 [...] % N 0-2 Factor 5 Leiden 10/12/2011 [facility] Factor 5 Negative Negative Mutation [address] [place] [address] Result [phone] Factor 5 Leiden Mut Interp . () 7 Reviewed By SEE BELOW () 8 Factor II 10/12/2011 [facility] Prothrombin Negative Negative (Prothrombin) [address] [place] [address] [phone] PT Mutation Interp . () 9 Reviewed By SEE BELOW () 10 1 SEE RESULT BELOW Name: ELISABETH COLLINS : [address]: Vinicio Justin MD Acct: [id number] Unit: [id number] AGE: 77 Location[facility] Re02/04/18 SEX: F Status: [facility] SPEC: [id number] STEFANO: 02/04/18- SUBM DR: Vinicio Justin MD REQ: [id number] RECD: 02/04/18 STATUS: SOUT _ ORDERED: LEVEL 1 FINAL DIAGNOSIS Event monitor, removal: Foreign body (Medtronic generator) (gross diagnosis) CLINICAL HISTORY No history given. GROSS DESCRIPTION The specimen is received fresh with no source identified and a requisition labeled, ICD Pacemaker Generator, and consists of a 6.3 x 5.0 x 1.3 cm silver metallic medical reimbursement specialist. The following inscription is identified: Medtronic Demetri II VR [id number] [facility]. Per established hospital medical staff protocol, no tissue is submitted. Gross only. Signed by and Reported on: Kendal Elam MD 02/05/18 1142 END OF REPORT DEPARTMENT OF PATHOLOGY, [address] [place] [address] Hunter Griffin M.D. Director [facility] # [id number] 2 Because ethnic data is not always [...] <15 (or dialysis) 3 Test Performed by: [place] [address] [address] [place] [id number] RESULT: Polyclonal hypergammaglobulinemia Test Performed by: [place] [id number] 5 Acute inflammation: >10.00 6 Because ethnic [...] thrombosis. If clinically indicated, suggest Coagulation Consultation 38327 (Thrombophilia Profile) to complete the evaluation for an inherited or acquired thrombosing disorder (i.e., thrombophilia). This test is a direct mutation analysis of leukocyte genomic DNA by the Invader Assay system (Invader, [employer], [place], [place]). Analyte Specific Reagent. This test was developed and its performance characteristics determined by [facility]. It has not been cleared or approved by the U.S. Food and Drug Administration. 8 RESULT: GINNA Bingham Test Performed by: [address] [address] Well Tester: Toby Shabazz III, M.D. 9 This individual DOES NOT have the Prothrombin [id number] mutation. Although the Prothrombin [id number] mutation is absent, the individual may have other genetic and environmental risk factors for thrombosis. If clinically indicated, suggest Coagulation Consultation 65320 (Thrombophilia Profile) to complete the evaluation for an inherited or acquired thrombosing disorder (i.e., thrombophilia). Consider genetic consultation and counseling of potentially affected family members regarding laboratory testing. This test is a direct mutation analysis of leukocyte genomic DNA by the Invader Assay system (Invader, [employer], [place], [place]). Analyte Specific Reagent. This test was developed and its performance characteristics determined by [facility]. It has not been cleared or approved by the U.S. Food and Drug Administration. 10 RESULT: GINNA Bingham Test Performed by: [address] [address] Well Tester: Toby Shabazz III, M.D. Procedures Date Code Description Status 04/04/2018 84193 Interrogation Implant Cardiovasc Monitor System Incl Completed Analysis Int 04/04/2018 38594 Interrogation Implant Cardiovasc Monitor System Incl Completed Analysis Int 04/04/2018 94296 Icd eval w/iterative adjment single lead Icd Completed 04/04/2018 03095 Icd eval w/iterative adjment single lead Icd Completed 02/04/2018 27391 Moderate Sedation Services; Same Phys Intl 15 Mins; PT >=5 Completed Years 02/04/2018 55688 Insert/Replace Icd W/Generator Completed 01/14/2018 71319 Icd Check Single,Dual Or Multiple In Person W/DR Incl Completed Heart Rhyth 01/14/2018 06843 Icd Check Single,Dual Or Multiple In Person W/DR Incl Completed Heart Rhyth 12/11/2017 71357 Icd Check Single,Dual Or Multiple In Person W/DR Degroot Completed Heart Rhyth 12/11/2017 38577 Icd Check Single,Dual Or Multiple In Person W/DR Degroot Completed Heart Rhyth 11/19/2017 49400 Icd eval w/iterative adjment single lead Icd Completed 11/19/2017 67354 Icd eval w/iterative adjment single lead Icd Completed 10/10/2017 58554 Echocardiography, Transesophageal, Real Time W/Image 2D Completed W/W/O M-M 10/10/2017 40322 Pulse Wave/Continuous-Interp.RPT Completed 10/10/2017 39104 Color Flow Doppler/Interp & Reprt Completed 10/10/2017 17021 Moderate Sedation Services; Same Phys Intl 15 Mins; PT >=5 Completed Years 08/20/2017 15762 ECHO Transthorasic Realtime 2D W Doppler & Color Flow Hosp Completed 08/20/2017 74349 Treadmill Interp/Report Only Completed 08/20/2017 72632 Stress Test Supervsn W/Out I/R Completed 07/25/2017 08530 Icd eval w/iterative adjment single lead Icd Completed 07/25/2017 36790 Icd eval w/iterative adjment single lead Icd Completed 04/30/2017 18085 EKG Tracing & Interpretation Completed 04/27/2017 19722 EKG, Interpretation Only Completed 04/26/2017 48034 EKG, Interpretation Only Completed 04/25/2017 62652 Cardiac Cath,LT Hrtmincl Intraprocedural Ink LT Ventricul Completed Mammary 04/25/2017 71928 EKG, Interpretation Only Completed 04/25/2017 08448 Percutaneous Transcatheter Placement Of Intracoronary Completed Stent 04/24/2017 65271 Treadmill Interp/Report Only Completed 04/24/2017 88083 Stress Test Supervsn W/Out I/R Completed 04/22/2017 76007 Echocardiography, Transesophageal, Real Time W/Image 2D Completed W/W/O M-M 04/22/2017 55836 Pulse Wave/Continuous-Interp.RPT Completed 04/22/2017 00176 Color Flow Doppler/Interp & Reprt Completed 04/21/2017 98258 EKG, Interpretation Only Completed 04/20/2017 29910 EKG, Interpretation Only Completed 04/18/2017 13876 ECHO Transthorasic Realtime 2D W Doppler & Color Flow Hosp Completed 01/26/2017 46800 EKG Tracing & Interpretation Completed 12/22/2016 42117 Icd Eval W/Iterative Adjustmnt Single Lead Icd Completed 09/06/2016 10591 Icd Eval Sing,Dual,Multi Lead Remote Recpt Transm Tech Rev Completed Tech S 09/06/2016 34950 Icd Check Remote Up To 90 Days Single,Dual,Multiple Lead Completed 09/06/2016 02154 Icd Check Remote Up To 90 Days Single,Dual,Multiple Lead Completed 05/03/2016 56681 Icd eval w/iterative adjment single lead Icd Completed 01/28/2016 12044 EKG Tracing & Interpretation Completed 12/29/2015 04749 Icd eval w/iterative adjment single lead Icd Completed 08/25/2015 99876 Icd eval w/iterative adjment single lead Icd Completed 02/08/2015 32933 EKG Tracing & Interpretation Completed 12/30/2014 61100 Icd Check Remote Up To 90 Days Single,Dual,Multiple Lead Completed 12/30/2014 77336 Icd Eval Sing,Dual,Multi Lead Remote Recpt Transm Tech Rev Completed Tech S 08/27/2014 79881 Icd Check Single,Dual Or Multiple In Person W/DR Incl Completed Heart Rhyth 05/13/2014 07615 Icd Eval Sing,Dual,Multi Lead Remote Recpt Transm Tech Rev Completed Tech S 05/13/2014 08900 Icd Check Remote Up To 90 Days Single,Dual,Multiple Lead Completed 05/11/2014 78885 EKG Tracing & Interpretation Completed 01/06/2014 71954 Icd Eval Sing,Dual,Multi Lead Remote Recpt Transm Tech Rev Completed Tech S 01/06/2014 57477 Icd Eval Sing,Dual,Multi Lead Remote Recpt Transm Tech Rev Completed Tech S 01/06/2014 58078 Icd Check Remote Up To 90 Days Single,Dual,Multiple Lead Completed 09/08/2013 26438 Icd eval w/iterative adjment single lead Icd Completed 08/28/2013 29938 ECHO Transthoracic, Real-Time 2D With Doppler And Color Completed Flow 04/28/2013 64104 Icd Eval Sing,Dual,Multi Lead Remote Recpt Transm Tech Rev Completed Tech S 04/28/2013 02893 Icd Check Remote Up To 90 Days Single,Dual,Multiple Lead Completed 12/25/2012 14432 Icd eval w/iterative adjment single lead Icd Completed 08/22/2012 98593 Icd eval w/iterative adjment single lead Icd Completed 08/22/2012 96009 EKG Tracing & Interpretation Completed 04/25/2012 39846 Icd eval w/iterative adjment single lead Icd Completed Encounters Type Date Location Provider Dx Diagnosis Office Visit 04/09/2018 [facility] Assjordan,pc Zoe Avila N.P. 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 E11.622 Type 2 diabetes mellitus with other skin ulcer N39.0 Urinary tract infection, site not specified Office Visit 01/25/2018 8:30a [facility] Nathalia Castro Z95.0 Presence of Of [place] N.PElmer cardiac pacemaker I10 Essential (primary) hypertension I25.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[place] coronary artery w/o ang pctrs I49.01 Ventricular fibrillation I48.0 Paroxysmal atrial fibrillation Office Visit 11/02/2017 [facility] Robert Dmuont B95.4 Oth streptococcus 8:30a For Infectious Cady Curry as the cause of Diseases diseases classd elswhr E11.9 Type 2 diabetes mellitus without complications Z95.0 Presence of cardiac pacemaker S81.801D Unspecified open wound, right lower leg, subs encntr Office Visit 10/19/2017 [facility] Robert Dumont B95.4 Oth streptococcus 11:30a For Infectious Cady Curry as the cause of Diseases diseases classd elswhr J18.9 Pneumonia, unspecified organism R78.81 Bacteremia Office Visit 10/14/2017 [facility] Mellissa Wilda J18.9 Pneumonia, 9:43a Assoc,pc Dahlia, [employer] LEAD unspecified Hospitalists organism B95.4 Oth streptococcus as the cause of diseases classd elswhr L89.312 Pressure ulcer of right buttock, stage 2 Office Visit 10/13/2017 [facility] J18.9 Pneumonia, 9:42a Assoc,anushka Villagomez, [employer] unspecified Hospitalists organism I10 Essential (primary) hypertension E11.9 Type 2 diabetes mellitus without complications Office Visit 10/12/2017 [facility] J18.9 Pneumonia, 9:42a Assoc,anushka Villagomez, [employer] LEAD unspecified Hospitalists organism I10 Essential (primary) hypertension E11.9 Type 2 diabetes mellitus without complications Office Visit 10/11/2017 8:04a [facility] Luiza Marin18.9 Pneumonia, Infectious Cady Curry unspecified Diseases organism R78.81 Bacteremia Z95.0 Presence of cardiac pacemaker Office Visit 10/11/2017 [facility] J18.9 Pneumonia, 9:42a Assoc,anushka Villagomez, [employer] unspecified Hospitalists organism I10 Essential (primary) hypertension E11.9 Type 2 diabetes mellitus without complications Office Visit 10/10/2017 [facility] Sosa J18.9 Pneumonia, 9:41a Assocanushka, CRE[employer] LEAD unspecified Hospitalists organism R78.81 Bacteremia I48.91 Unspecified atrial fibrillation Office Visit 10/09/2017 7:51a [facility] Robert Dumont J18.9 Pneumonia, Infectious Cady Curry unspecified Diseases organism R78.81 Bacteremia Z95.0 Presence of cardiac pacemaker [facility] Pneumonia, 9:41a Assocanushka, [employer]AD unspecified Hospitalists organism B95.4 Oth streptococcus as the cause of diseases classd elswhr R78.81 Bacteremia I48.91 Unspecified atrial fibrillation R53.1 Weakness Office Visit 10/08/2017 7:50a [facility] Robert Marin18.9 Pneumonia, Infectious Cady Curry unspecified Diseases organism R78.81 Bacteremia Z95.0 Presence of cardiac pacemaker Office Visit 10/08/2017 [facility] Frank Tejada R68.83 Chills 9:40a Assoc,anushka MONTGOMERY M.D. (without Hospitalists fever) R11.0 Nausea R53.81 Other malaise R00.0 Tachycardia, unspecified Office Visit 08/20/2017 10:40a [facility] Zoe Austin, R07.2 Precordial pain Assoc,pc N.P. Hospitalists I25.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[place] coronary artery w/o ang pctrs E11.9 Type 2 diabetes mellitus without complications Z86.79 Personal history of other diseases of the circulatory system Office Visit 08/18/2017 [facility] Frank Tejada R07.2 Precordial pain 10:39a Assoc,anushka MONTGOMERY M.D. Hospitalists I25.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[place] coronary artery w/o ang pctrs E11.9 Type 2 diabetes mellitus without complications Z86.79 Personal history of other diseases of the circulatory system Office Visit 07/26/2017 2:30p [facility] Nathalia SElmer I49.01 Ventricular Of [facility] Khalif, N.P. fibrillation I48.0 Paroxysmal atrial fibrillation I25.5 Ischemic cardiomyopathy Z95.810 Presence of automatic (implantable) cardiac defibrillator Office Visit 06/06/2017 10:10a [facility] Robert Dumont R21 Rash and other For Ni Curry M.D. nonspecific skin Diseases eruption Office Visit 05/17/2017 2:00p [facility] Robert Dumont Z86.19 Personal history For Ni Curry M.D. of other Diseases infectious and parasitic diseases R21 Rash and other nonspecific skin eruption Office Visit 05/10/2017 [facility] Johanny Barba, I25.810 Atherosclerosis of 1:10p Cardiology Cady CABG w/o angina [employer] pectoris I21.4 Non-St elevation (Nstemi) myocardial infarction I49.01 Ventricular fibrillation I48.0 Paroxysmal atrial fibrillation I25.5 Ischemic cardiomyopathy M79.606 Pain in leg, unspecified Office Visit 04/30/2017 2:20p [facility] Hunter Gill, Z48.812 Encntr for Of [facility] AT [facility] Cady, [facility], surgical aftcr FSCAI following surgery on the circ sys I25.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[place] coronary artery w/o ang pctrs Office Visit 04/27/2017 3:32p [facility] Parminder Castro I25.10 Athscl heart Of [facility] Jeoy, DO disease of [facility] [place] coronary artery w/o ang pctrs I47.2 Ventricular tachycardia Z95.810 Presence of automatic (implantable) cardiac defibrillator I50.9 Heart failure, unspecified I48.91 Unspecified atrial fibrillation Office Visit 04/26/2017 9:40a [facility] Hunter Gill, I25.10 Athscl heart Of [employer] AT [facility] M.D., FACC, disease of [place] FSCAI coronary artery w/o ang pctrs Office Visit 04/26/2017 3:31p [facility] Parminder SElmer I47.2 Ventricular Of [employer] Cook, DO tachycardia FACC Z95.810 Presence of automatic (implantable) cardiac defibrillator I50.9 Heart failure, unspecified I48.91 Unspecified atrial fibrillation Office Visit 04/25/2017 3:30p [facility] Johanny Barba I48.0 Paroxysmal atrial Of [employer] M.D. fibrillation I10 Essential (primary) hypertension Office Visit 04/24/2017 4:14p [facility] Vinicio Dumont I47.2 Ventricular Of [employer] Nhan M.D. tachycardia I25.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[place] coronary artery w/o ang pctrs Office Visit 04/24/2017 3[facility] R78.81 Bacteremia Infectious Diseases Cady Curry B95.1 Streptococcus, group B, causing diseases classd elswhr R93.1 Abnormal findings on dx imaging of heart and cor circ I45.81 Long QT syndrome Z95.810 Presence of automatic (implantable) cardiac defibrillator Office Visit 04/23/2017 3:28p [facility] Johanny Barba A41.9 Sepsis, Of [employer] M.D. unspecified organism I48.0 Paroxysmal atrial fibrillation Office Visit 04/22/2017 3:26p [facility] Johanny Barba R78.81 Bacteremia Of [employer] M.D. I47.2 Ventricular tachycardia Office Visit 04/21/2017 3:25p [facility] Nubia Brunson1.9 Sepsis, Of [employer] M.D. unspecified organism I47.2 Ventricular tachycardia I25.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[place] coronary artery w/o ang pctrs I42.9 Cardiomyopathy, unspecified I48.0 Paroxysmal atrial fibrillation Office Visit 04/20/2017 3:22p [facility] Johanny Jameson, I48.0 Paroxysmal atrial Of [facility] M.DElmer fibrillation Z95.810 Presence of automatic (implantable) cardiac defibrillator I47.2 Ventricular tachycardia Office Visit 04/18/2017 3:03p [facility] R78.81 Bacteremia Infectious Diseases Cady Curry B95.1 Streptococcus, group B, causing diseases classd elsr R68.89 Other general symptoms and signs Z95.0 Presence of cardiac pacemaker L03.315 Cellulitis of perineum Office Visit 01/26/2017 [facility] Joh[facility] Barba, I25.810 Atherosclerosis of 10:20a Cardiology Of Cady CABG w/o angina [employer] AT [facility] pectoris I73.9 Peripheral vascular disease, unspecified I65.29 Occlusion and stenosis of unspecified carotid artery E78.00 Pure hypercholesterolemia, unspecified I10 Essential (primary) hypertension E11.8 Type 2 diabetes mellitus with unspecified complications I34.0 Nonrheumatic mitral (valve) insufficiency Z95.810 Presence of automatic (implantable) cardiac defibrillator Office Visit 01/28/2016 [facility] Joh[facility] Barba, Z95.810 Presence of 8:20a Cardiology Of Cady automatic [facility] AT [facility] (implantable) cardiac defibrillator I25.810 Atherosclerosis of CABG w/o angina pectoris E78.00 Pure hypercholesterolemia, unspecified I10 Essential (primary) hypertension I25.5 Ischemic cardiomyopathy E11.8 Type 2 diabetes mellitus with unspecified complications Office Visit 02/08/2015 8:15a [facility] Johanny Barba, I73.9 Peripheral Of [facility] TanvirDElmer vascular disease, unspecified Z95.810 Presence of automatic (implantable) cardiac defibrillator I10 Essential (primary) hypertension E78.0 Pure hypercholesterolemia I25.810 Atherosclerosis of CABG w/o angina pectoris R94.31 Abnormal electrocardiogram [ECG] [EKG] I47.2 Ventricular tachycardia Office Visit 07/05/2014 [facility] Moy Monreal, 578.9 Hemorrhage 1:06p anushka Colbert M.D. Gastrointestinal Hospitalists Tract Unspec 285.1 Anemia Posthemorrhagic Acute 414.00 Coronary Atherosclerosis Unspec Type Vessel [place]/Graft 443.9 Peripheral Vascular Disease Unspec Office Visit 05/11/2014 [facility] Johanny Barba, 414.02 Coronary 8:15a Cardiology Of [place].Julia Atherosclerosis [facility] Autologous Vein Bypass Graft 250.90 Diabetes W/ Unspec Compl Type II Or Unspec Controlled 272.0 Hypercholesterolemia Pure 401.9 Hypertension Unspec 427.1 Paroxysmal Ventricular Tachycardia V45.02 Cardiac Defibrillator Automatic Implantable Postsurgical Office Visit 09/10/2013 9:15a [facility] Johanny Barba, 443.9 Peripheral Of [facility] M.Julia Vascular Disease Unspec 272.0 Hypercholesterolemia Pure 401.9 Hypertension Unspec 414.02 Coronary Atherosclerosis Autologous Vein Bypass Graft V45.02 Cardiac Defibrillator Automatic Implantable Postsurgical Office Visit 12/25/2012 [facility] Johanny Barba, 414.02 Coronary 9:45a Cardiology [facility].D Atherosclerosis [facility] Autologous Vein Bypass Graft 443.9 Peripheral Vascular Disease Unspec 401.9 Hypertension Unspec 272.0 Hypercholesterolemia Pure Office Visit 05/10/2012 9:48a [facility] Moy Monreal, 682.6 Cellulitis & Assoc,pc Cady Abscess Leg Hospitalists Except Foot 250.90 Diabetes W/ Unspec Compl Type II Or Unspec Controlled 278.00 Obesity Unspec V12.51 History Personal Venous Thromb & Embolism Office Visit 05/08/2012 9:48a [facility] Ander 682.6 Cellulitis & Assoc,pc Peterson N.Christophe Abscess Leg Hospitalists Except Foot 250.90 Diabetes W/ Unspec Compl Type II Or Unspec Controlled 278.00 Obesity Unspec V12.51 History Personal Venous Thromb & Embolism Office Visit 05/06/2012 9:47a [facility] Moy Monreal, 276.51 Dehydration Assoc,pc Kortney.Julia Hospitalists 008.8 Enteritis Due To Other Organism Not Elsewhere Class 443.81 Peripheral Angiopathy Disease Class Elsewhere Office Visit 05/04/2012 9:46a [facility], 276.51 Dehydration Assoc,pc N.P. Hospitalists 008.8 Enteritis Due To Other Organism Not Elsewhere Class 682.8 Cellulitis & Abscess Other Spec Sites 443.81 Peripheral Angiopathy Disease Class Elsewhere Office Visit 04/25/2012 [facility]er 414.02 Coronary 9:15a Cardiology [facility] Atherosclerosis [facility] Autologous Vein Bypass Graft 427.1 Paroxysmal Ventricular Tachycardia 443.9 Peripheral Vascular Disease Unspec 401.9 Hypertension Unspec Plan of Treatment Future Appointment(s):07/18/2018 9:30 am - Nathalia Cuadra N.P. at [facility]07/18/2018 9:00 am - Ica Pacer Schedule at [facility]04/04/2018 - Johanny Barba M.D.Z95.810 Presence of automatic (implantable ) cardiac defibrillatorComments:Good function, no rhythm problems.Follow up:ICD check, today if able. ICD check remote or in office 2-3 months, then as per Device nurses.I25.10 Atherosclerotic heart disease of [place] coronary artery withFollow up:OV 2- months with [facility]W [facility] after ICD check.I48.0 Paroxysmal atrial coayhuwrssdtV75.01 Ventricular vpacxsufzxxoR36.8 Type 2 diabetes mellitus with unspecified xtgcepnqzsaceJ61.9 Peripheral vascular disease, unspecifiedFollow up :Pt sees Dr Zelaya, see if you can assist w ith appt for PVD, non healing ulcers for re evaluation with him.R60.9 Edema, unspecifiedComments:Dr Ashford follows currently.R53.83 Other fatigueNew Orders:Overnight Oximetry, Ordered: ollow up:We will call with results.
[2018-07-29 19:33] LABS: Hematocrit 38 % (33-41); Hemoglobin 12.4 g/dL (12.0-16.0); Mean Corpuscular HGB Conc 33 g/dL (31-36); Mean Corpuscular Hemoglobin 29 pg (27-31); Mean Corpuscular Volume 88 fL (80-97); Mean Platelet Volume 8.6 fL (7.4-10.4); Platelet Count 124 10^3/uL (150-450); Red Blood Count 4.31 10^6 /uL (3.70-4.87); Red Cell Distribution Width 15 % (10.5-15); White Blood Count 5.6 10^3/uL (3.5-10.8)
[2018-07-29 19:56] LABS: Albumin 3.7 g/dL (3.2-5.2); Albumin/Globulin Ratio 0.9 (1-3); BUN/Creatinine Ratio 31.9 (8-20); Calcium 9.7 mg/dL (8.6-10.3); EGFR African American 100.1 (>60); EGFR Non-African American 82.7 (>60); Globulin 4.3 g/dL (2-4); Potassium 4.3 mmol/L (3.5-5.0); Total Bilirubin 0.4 mg/dL (0.2-1.0)
[2018-07-29 20:55] LABS: Troponin I 0.01 ng/mL (<0.04)
--- NOTE | 2018-07-29 21:24 | ED ---
Complex/Multi-Sys Presentation - HPI Summary HPI Summary: 77-year-old female presents with left-sided rib pain for a couple hours. She states that pain is very sharp but has since resolved. Her symptoms resolved for the past 3 hours. She denies any shortness of breath. No abdominal pain. no nausea or vomiting. Has never had this pain before. States that she's been very anxious all day. She is wondering if anxiety is contributing to the pain. She states her medical bracelet is making her anxious. She has an echo and ekg for Sunday scheduled. She did not try anything for pain. She is just very anxious now. Denies any pain at this time. - History Of Current Complaint Chief Complaint: EDGeneral Time Seen by Provider: 07/29/18 19:59 - Allergies/Home Medications Allergies/Adverse Reactions: Allergies Allergy/AdvReac Type Severity Reaction Status Date / Time rivaroxaban [From Xarelto] Allergy Bleeding Verified 07/11/18 06:32 PMH/Surg Hx/FS Hx/Imm Hx Endocrine/Hematology History: Reports: Hx Anticoagulant Therapy - arixtra and plavix , Hx Diabetes Denies: Hx Thyroid Disease Cardiovascular History: Reports: Hx Angina, Hx Auto Implanted Cardiovert Defib, Hx Cardiac Arrest, Hx Coronary Artery Disease, Hx Deep Vein Thrombosis, Hx Hypercholesterolemia, Hx Hypertension, Hx Pacemaker/ICD - 2005, Hx Peripheral Vascular Disease, Other Cardiovascular Problems/Disorders - VT with VF ICD going off Denies: Hx Congestive Heart Failure Respiratory History: Denies: Other Respiratory Problems/Disorders GI History: Reports: Hx Gastrointestinal Bleed History: Reports: Hx Kidney Stones - IN THE PAST, Other Problems/ Disorders - recurrent UTI's, urethral dilation 03/2018 Denies: Hx Renal Disease Musculoskeletal History: Reports: Hx Arthritis Sensory History: Reports: Hx Cataracts, Hx Contacts or Glasses - Glasses, Hx Hearing Aid - right side, Hx Hearing Problem - Bilateral hearing loss Opthamlomology History: Reports: Hx Cataracts, Hx Contacts or Glasses - Glasses Neurological History: Denies: Hx Dementia, Hx Developmental Delay, Hx Headaches Psychiatric History: Reports: Hx Anxiety, Hx Depression - Cancer History Hx Chemotherapy: No Hx Radiation Therapy: No - Surgical History Surgery Procedure, Year, and Place: pacer/defib;. cabg;. right leg bypass aorto-fem;. c section;. 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; hx sepsis Denies: Traveled Outside the [place] in Last 30 Days - Family History Known Family History: Positive: Cardiac Disease, Diabetes, Other - High cholesterol - Social History Alcohol Use: None Hx Substance Use: No Substance Use Type: Reports: None Hx Tobacco Use: Yes Smoking Status (MU): Former Smoker Type: Cigarettes Amount Used/How Often: 1-2 PPD Length of Time of Smoking/Using Tobacco: 39 YEARS Have You Smoked in the Last Year: No Review of Systems Negative: Fever Positive: Chest Pain - resolved Negative: Shortness Of Breath All Other Systems Reviewed And Are Negative: Yes Physical Exam Triage Information Reviewed: Yes Vital Signs On Initial Exam: Initial Vitals Temp Pulse Resp BP Pulse Ox 97.8 F 61 18 144/66 98 07/29/18 16:45 07/29/18 16:45 07/29/18 16:45 07/29/18 16:45 07/29/18 16:45 Vital Signs Reviewed: Yes Appearance: Positive: Well-Appearing Skin: Positive: Warm, Dry Head/Face: Positive: Normal Head/Face Inspection Eyes: Positive: Normal, Conjunctiva Clear ENT: Positive: Pharynx normal Respiratory/Lung Sounds: Positive: Clear to Auscultation, Breath Sounds Present Cardiovascular: Positive: Normal, RRR Musculoskeletal: Positive: Normal Neurological: Positive: Normal Psychiatric: Positive: Anxious Diagnostics - Vital Signs Vital Signs Temp Pulse Resp BP Pulse Ox 07/29/18 19:03 98.1 F 61 16 173/74 100 07/29/18 16:45 97.8 F 61 18 144/66 98 - Laboratory Lab Results: Lab Results 07/29/18 07/29/18 Range/Units 19:19 19:20 WBC 5.6 (3.5-10.8) 10^3/uL RBC 4.31 (3.70-4.87) 10^6 /uL Hgb 12.4 (12.0-16.0) g/dL Hct 38 (33-41) % MCV 88 (80-97) fL MCH 29 (27-31) pg MCHC 33 (31-36) g/dL RDW 15 (10.5-15) % Plt Count 124 L (150-450) 10^3/uL MPV 8.6 (7.4-10.4) fL Sodium 138 (135-145) mmol/L Potassium 4.3 (3.5-5.0) mmol/L Chloride 101 (101-111) mmol/L Carbon Dioxide 33 H (22-32) mmol/L Anion Gap 4 (2-11) mmol/L BUN 22 (6-24) mg/dL Creatinine 0.69 (0.51-0.95) mg/dL Est GFR ( Amer) 100.1 (>60) Est GFR (Non-Af Amer) 82.7 (>60) BUN/Creatinine Ratio 31.9 H (8-20) Glucose 173 H (70-100) mg/dL Calcium 9.7 (8.6-10.3) mg/dL Total Bilirubin 0.40 (0.2-1.0) mg/dL AST 26 (13-39) U/L ALT 21 (7-52) U/L Alkaline Phosphatase 117 H (34-104) U/L Troponin I 0.01 (<0.04) ng/mL Total Protein 8.0 (6.4-8.9) g/dL Albumin 3.7 (3.2-5.2) g/dL Globulin 4.3 H (2-4) g/dL Albumin/Globulin Ratio 0.9 L (1-3) Result Diagrams: 07/29/18 19:19 07/29/18 19:20 Lab Statement: Any lab studies that have been ordered have been reviewed, and results considered in the medical decision making process. - EKG No standard instances Cardiac Rate: NL EKG Rhythm: Sinus Rhythm EKG Comparison: No Significant Change Summary of EKG Findings: sinus rhythm Complex Multi-Symp Course/Dx Course Of Treatment: 77-year-old female presents with left-sided rib pain for a couple hours. She states that pain is very sharp but has since resolved. Her symptoms resolved for the past 3 hours. She denies any shortness of breath. No abdominal pain. no nausea or vomiting. Has never had this pain before. States that she's been very anxious all day. She is wondering if anxiety is contributing to the pain. She states her medical bracelet is making her anxious. She has an echo and ekg for Sunday scheduled. She did not try anything for pain. She is just very anxious now. Denies any pain at this time. On exam lungs clear to auscultation. Nontender chest wall. Patient is anxious. EKG shows sinus rhythm. Troponin is 0. This is 3 hours post resolved pain. Patient does have a follow-up in 2 days for an echo. Discuss symptoms could be anxiety related. reassured patient. Told to follow up primary. Patient understands and agrees with plan. - Diagnoses Differential Diagnoses/HQI/PQRI: Metabolic Abnormality, Other - NH, anxiety Provider Diagnoses: Anxiety, Chest wall pain Discharge - Sign-Out/Discharge Documenting (check all that apply): Patient Departure Patient Received Moderate/Deep Sedation with Procedure: No - Discharge Plan Condition: Good Disposition: HOME Patient Education Materials: Chest Wall Pain (ED) Referrals: Daryl Ashford MD [Primary Care Provider] - Johanny Renteria MD [Medical Doctor] - Additional Instructions: take tyenlol every 6 hours for pain Keep follow up with dr renteria Return to ED if develop any shortness of breath, chest pain or any new or worsening symptoms - Billing Disposition and Condition Condition: GOOD Disposition: Home
[2018-07-29 22:04] VITALS: BP 139/68
== END 2018-07-29 22:03 | disposition home or self-care (01) ==
LOC: ED 16:29
DX: F41.9 Anxiety disorder, unspecified (principal); R07.89 Other chest pain; R94.31 Abnormal electrocardiogram [ECG] [EKG]; I10 Essential (primary) hypertension; I25.10 Atherosclerotic heart disease of native coronary artery without angina pectoris; I73.9 Peripheral vascular disease, unspecified; E78.00 Pure hypercholesterolemia, unspecified; M19.90 Unspecified osteoarthritis, unspecified site; F32.9 Major depressive disorder, single episode, unspecified; Z97.4 Presence of external hearing-aid; Z88.8 Allergy status to other drugs, medicaments and biological substances; Z79.01 Long term (current) use of anticoagulants; Z95.810 Presence of automatic (implantable) cardiac defibrillator; Z86.74 Personal history of sudden cardiac arrest; Z86.718 Personal history of other venous thrombosis and embolism; Z95.1 Presence of aortocoronary bypass graft; Z87.891 Personal history of nicotine dependence
CPT/HCPCS: 36415; 80053; 84484; 85027; 93005; 99282

== ENCOUNTER 2018-08-03 10:37 | Emergency (ER) | payer MEDICARE, BC ==
[2018-08-03] MEDS ORDERED: Acetaminophen TAB* 325 MG PO ONE (11:13)
--- NOTE | 2018-08-03 11:14 | ED ---
Adult Trauma - HPI Summary HPI Summary: Patient is a 77-year-old female presenting to the ED after a fall at her home. Patient is endorsing pain to the upper lip and right rib. Patient denies LOC. She states however she is unsure how she fell. Family is at bedside and is stating she has been falling more frequently. Patient remains ambulatory at home. History of dementia. Patient is currently on Eliquis. Tearful on arrival and very anxious. - History of Current Complaint Chief Complaint: EDFall Stated Complaint: FALL/LIP LACERATION PER EMS Time Seen by Provider: 08/03/18 10:45 Hx Obtained From: Patient Hx Last Menstrual Period: N/A ?: No Mechanism of Injury: Blunt Trauma Ambulatory at the Scene: No Loss of Consciousness: no loss of consciousness Onset/Duration: Started Hours Ago Onset of Pain: Hours Onset Severity: Moderate Current Severity: Mild Pain Intensity: 6 Pain Scale Used: 0-10 Numeric Location: Other - Face and right side Character: Aching Aggravating Factor(s): Nothing Alleviating Factor(s): Nothing Related History: Anticoagulants - Additional Pertinent History Primary Care Physician: SID - Allergy/Home Medications Allergies/Adverse Reactions: Allergies Allergy/AdvReac Type Severity Reaction Status Date / Time rivaroxaban [From Xarelto] Allergy Bleeding Verified 08/03/18 10:53 Home Medications: Home Medications Apixaban* [Eliquis*] 5 mg PO BID 08/03/18 [History Confirmed 08/03/18] Nitroglycerin TAB 0.4 MG* 0.4 mg SL . NEEDED PRN 08/03/18 [History Confirmed 08/03/18] Sotalol TAB* [Betapace 80 MG TAB*] 40 mg PO BID 08/03/18 [History Confirmed ] PMH/Surg Hx/FS Hx/Imm Hx Previously Healthy: Yes Endocrine/Hematology History: Reports: Hx Anticoagulant Therapy - arixtra and plavix , Hx Diabetes Denies: Hx Thyroid Disease Cardiovascular History: Reports: Hx Angina, Hx Auto Implanted Cardiovert Defib, Hx Cardiac Arrest, Hx Coronary Artery Disease, Hx Deep Vein Thrombosis, Hx Hypercholesterolemia, Hx Hypertension, Hx Pacemaker/ICD - 2005, Hx Peripheral Vascular Disease, Other Cardiovascular Problems/Disorders - [place] with VF ICD going off Denies: Hx Congestive Heart Failure Respiratory History: Denies: Other Respiratory Problems/Disorders GI History: Reports: Hx Gastrointestinal Bleed History: Reports: Hx Kidney Stones - IN THE PAST, Other Problems/ Disorders - recurrent UTI's, urethral dilation 03/2018 Denies: Hx Renal Disease Musculoskeletal History: Reports: Hx Arthritis Sensory History: Reports: Hx Cataracts, Hx Contacts or Glasses - Glasses, Hx Hearing Aid - right side, Hx Hearing Problem - Bilateral hearing loss Opthamlomology History: Reports: Hx Cataracts, Hx Contacts or Glasses - Glasses Neurological History: Denies: Hx Dementia, Hx Developmental Delay, Hx Headaches Psychiatric History: Reports: Hx Anxiety, Hx Depression - Cancer History Hx Chemotherapy: No Hx Radiation Therapy: No - Surgical History Surgery Procedure, Year, and Place: pacer/defib;. cabg;. right leg bypass aorto-fem;. c section;. 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; hx sepsis Denies: Traveled Outside the [place] in Last 30 Days - Family History Known Family History: Positive: Cardiac Disease, Diabetes, Other - High cholesterol - Social History Occupation: Unemployed Lives: With Family Alcohol Use: None Hx Substance Use: No Substance Use Type: Reports: None Hx Tobacco Use: Yes Smoking Status (MU): Former Smoker Type: Cigarettes Amount Used/How Often: 1-2 PPD Length of Time of Smoking/Using Tobacco: 39 YEARS Have You Smoked in the Last Year: No Review of Systems Constitutional: Negative Negative: Fever, Chills, Fatigue, Skin Diaphoresis Positive: Dental Pain - upper lip pain Negative: Palpitations, Chest Pain Negative: Shortness Of Breath, Cough Negative: Abdominal Pain, Vomiting, Diarrhea, Nausea Genitourinary: Negative Positive: no symptoms reported, see HPI Positive: Arthralgia - right-sided rib pain Positive: Bruising - upper and lower lips Neurological: Negative Negative: Headache, Weakness, Paresthesia, Numbness, Slurred Speech Positive: Anxious All Other Systems Reviewed And Are Negative: Yes Physical Exam Triage Information Reviewed: Yes Vital Signs On Initial Exam: Initial Vitals Temp Pulse Resp BP Pulse Ox 98 F 64 16 134/56 93 08/03/18 10:41 08/03/18 10:41 08/03/18 10:41 08/03/18 10:41 08/03/18 10:41 Vital Signs Reviewed: Yes Appearance: Positive: Signs of Trauma - upper and lower lip pain Skin: Positive: Other - ecchymosis and swelling of the upper lip Head/Face: Positive: Other Eyes: Positive: EOMI, RACHELLE, Conjunctiva Clear Respiratory/Lung Sounds: Positive: Clear to Auscultation, Breath Sounds Present Cardiovascular: Positive: RRR, Pulses are Symmetrical in both Upper and Lower Extremities Musculoskeletal: Positive: Pain @ - Right-sided rib pain Neurological: Positive: Sensory/Motor Intact, Alert, Oriented to Person Place, Time Psychiatric: Positive: Anxious Diagnostics - Vital Signs Vital Signs Temp Pulse Resp BP Pulse Ox 08/03/18 11:00 64 91 08/03/18 10:48 63 134/56 92 08/03/18 10:47 64 95 08/03/18 10:41 98 F 64 16 134/56 93 - Laboratory Lab Statement: Any lab studies that have been ordered have been reviewed, and results considered in the medical decision making process. Adult Trauma Course/Dx - Course Course Of Treatment: During the course of treatment, the patient is evaluated for right-sided rib pain and facial pain. CT brain and maxillofacial obtained, both of which were negative. Chest x-ray obtained. She has posterior rib fractures 9, 10 and 11. She is endorsing pain on arrival and is very tearful. She is given pain control here in the ED with good effect. Small abrasion to the left upper lip with adhesive applied with good effect. She is given a spirometer. Discussed with the patient and daughter at bedside. They're comfortable going home with a close follow-up to their PCP. - Diagnoses Differential Diagnosis/HQI/PQRI: Positive: Contusion(s), Sprain, Strain Provider Diagnoses: Rib fractures, Lip swelling Discharge - Sign-Out/Discharge Documenting (check all that apply): Patient Departure Patient Received Moderate/Deep Sedation with Procedure: No - Discharge Plan Condition: Good Disposition: HOME Prescriptions: Hydrocodone/Acetamin 10/325(NF [[place] 10/325 (NF)] 1 tab PO Q8H #12 tab MDD 3 Patient Education Materials: How to Use an Incentive Spirometer (ED), Rib Fracture (ED) Referrals: Daryl Ashford MD [Primary Care Provider] - Additional Instructions: Hydrocodone/acetaminophen 10 mg every 6 hours as needed for pain Do not take Tylenol in addition to this medication Use a pillow for comfort if needing to cough Use incentive spirometry 3-5 times per hour while awake If you develop any worsening pain or shortness of breath, return to the ED immediately Continue to rinse out mouth as needed with water and saline water or salt water if you're able to tolerate Washcloth to the mouth and between her lips every now and then for the first day to help with some of the bleeding - Billing Disposition and Condition Condition: GOOD Disposition: Home
[2018-08-03] MEDS ORDERED: oxyCODONE TAB* 5 MG TAB PO ONE (14:38)
[2018-08-03] MEDS ORDERED: oxyCODONE TAB* 5 MG TAB ONE (14:40)
[2018-08-03 16:38] VITALS: BP 155/69
== END 2018-08-03 14:58 | disposition home or self-care (01) ==
LOC: ED 10:37
DX: S00.511A Abrasion of lip, initial encounter (principal); S22.41XA Multiple fractures of ribs, right side, initial encounter for closed fracture; Z79.01 Long term (current) use of anticoagulants; Z95.810 Presence of automatic (implantable) cardiac defibrillator; I25.10 Atherosclerotic heart disease of native coronary artery without angina pectoris; Z86.718 Personal history of other venous thrombosis and embolism; E78.00 Pure hypercholesterolemia, unspecified; I10 Essential (primary) hypertension; I73.9 Peripheral vascular disease, unspecified; Z87.442 Personal history of urinary calculi; F41.9 Anxiety disorder, unspecified; F32.9 Major depressive disorder, single episode, unspecified; Z87.891 Personal history of nicotine dependence; W19.XXXA Unspecified fall, initial encounter; Y92.009 Unspecified place in unspecified non-institutional (private) residence as the place of occurrence of the external cause; F03.90 Unspecified dementia, unspecified severity, without behavioral disturbance, psychotic disturbance, mood disturbance, and anxiety
CPT/HCPCS: 70450; 70486; 99284; A9270-GY

== ENCOUNTER 2018-08-12 15:16 | Inpatient (IN) | payer MEDICARE, BC ==
[2018-08-12 17:09] LABS: ABS Basophils 0 10^3/ul (0-0.2); ABS Eosinophils 0.2 10^3/ul (0-0.6); ABS Lymphocytes 1.4 10^3/ul (1.0-4.8); ABS Monocytes 0.5 10^3/ul (0-0.8); ABS Neutrophils 6.1 10^3/ul (1.5-7.7); ABS Nucleated RBC 0 10^3/ul; Eosinophil % 2.2 %; Hematocrit 30 % (33-41); Hemoglobin 9.9 g/dL (12.0-16.0); Mean Corpuscular HGB Conc 33 g/dL (31-36); Mean Corpuscular Hemoglobin 29 pg (27-31); Mean Corpuscular Volume 89 fL (80-97); Mean Platelet Volume 8.5 fL (7.4-10.4); Nucleated Red Blood Cells % 0.1; Platelet Count 143 10^3/uL (150-450); Red Blood Count 3.37 10^6 /uL (3.70-4.87); Red Cell Distribution Width 15 % (10.5-15); White Blood Count 8.2 10^3/uL (3.5-10.8)
[2018-08-12 17:17] LABS: INR 1.94 (0.82-1.09)
[2018-08-12 17:26] LABS: Albumin 3.2 g/dL (3.2-5.2); Albumin/Globulin Ratio 0.8 (1-3); BUN/Creatinine Ratio 27.8 (8-20); Calcium 9.2 mg/dL (8.6-10.3); EGFR African American 95.3 (>60); EGFR Non-African American 78.8 (>60); Globulin 3.9 g/dL (2-4); Potassium 4.2 mmol/L (3.5-5.0); Total Bilirubin 0.9 mg/dL (0.2-1.0); Total Protein 7.1 g/dL (6.4-8.9)
[2018-08-12 17:28] LABS: Troponin I 0.01 ng/mL (<0.04)
--- NOTE | 2018-08-12 17:28 | ED ---
Syncope/Near Syncope - HPI Summary HPI Summary: Patient is a 77-year-old female with a recent history of weakness that has been worsening over the course of several months with subsequent falls presenting to the ED with . states they're unable to care for her at home at this point. She was seen in the ED last week after a fall and still has bruising to the mouth and nose. A maxillofacial CT and a brain CT was obtained , which was normal. A rib series to the right side showed rib fractures. Daughter at bedside at the time said she was able to take one week off of work and was able to stay home with her until they were able to find home health aids to come for help during the daytime. They come in today stating this was unable to be secured in a timely fashion and there are no longer able to take care of her. The patient states she is unsteady on her feet, has dizziness, weakness, worsening symptoms when standing from sitting. She states she is unable to take even a few steps and use the restroom. She denies any pain at this time , but states she does have pain to her right arm when palpated. She remains able to flex and extend at the shoulder joint, elbow joint and wrist joint. She is on Eliquis and Plavix, and is unsure why she is on both. - History Of Current Complaint Chief Complaint: EDHipPelvisInjury Time Seen by Provider: 08/12/18 15:29 Hx Obtained From: Patient Onset/Duration: Sudden Onset Timing: Constant Associated Head Trauma: No Aggravating Factor(s): Nothing Alleviating Factor(s): Nothing - Risk Factors Cardiac Risk Factors: Negative Dysrhythmia Risk Factors: Negative Risk Factor(s): Negative - Allergies/Home Medications Allergies/Adverse Reactions: Allergies Allergy/AdvReac Type Severity Reaction Status Date / Time rivaroxaban [From Xarelto] Allergy Bleeding Verified 08/03/18 10:53 PMH/Surg Hx/FS Hx/Imm Hx Previously Healthy: No Endocrine/Hematology History: Reports: Hx Anticoagulant Therapy - arixtra and plavix , Hx Diabetes Denies: Hx Thyroid Disease Cardiovascular History: Reports: Hx Angina, Hx Auto Implanted Cardiovert Defib, Hx Cardiac Arrest, Hx Coronary Artery Disease, Hx Deep Vein Thrombosis, Hx Hypercholesterolemia, Hx Hypertension, Hx Pacemaker/ICD - 2005, Hx Peripheral Vascular Disease, Other Cardiovascular Problems/Disorders - VT with VF ICD going off Denies: Hx Congestive Heart Failure Respiratory History: Denies: Other Respiratory Problems/Disorders GI History: Reports: Hx Gastrointestinal Bleed History: Reports: Hx Kidney Stones - IN THE PAST, Other Problems/ Disorders - recurrent UTI's, urethral dilation 03/2018 Denies: Hx Renal Disease Musculoskeletal History: Reports: Hx Arthritis Sensory History: Reports: Hx Cataracts, Hx Contacts or Glasses - Glasses, Hx Hearing Aid - right side, Hx Hearing Problem - Bilateral hearing loss Opthamlomology History: Reports: Hx Cataracts, Hx Contacts or Glasses - Glasses Neurological History: Denies: Hx Dementia, Hx Developmental Delay, Hx Headaches Psychiatric History: Reports: Hx Anxiety, Hx Depression - Cancer History Hx Chemotherapy: No Hx Radiation Therapy: No - Surgical History Surgery Procedure, Year, and Place: pacer/defib;. cabg;. right leg bypass aorto-fem;. c section;. 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; hx sepsis Denies: Traveled Outside the [place] in Last 30 Days - Family History Known Family History: Positive: Cardiac Disease, Diabetes, Other - High cholesterol - Social History Occupation: Unemployed Lives: With Family Alcohol Use: None Hx Substance Use: No Substance Use Type: Reports: None Hx Tobacco Use: Yes Smoking Status (MU): Former Smoker Type: Cigarettes Amount Used/How Often: 1-2 PPD Length of Time of Smoking/Using Tobacco: 39 YEARS Have You Smoked in the Last Year: No Review of Systems Negative: Fever, Chills, Fatigue, Skin Diaphoresis Negative: Blurred Vision, Diplopia Negative: Dental Pain, Sore Throat Negative: Palpitations, Chest Pain Negative: Shortness Of Breath, Cough Negative: Arthralgia, Myalgia Positive: Bruising Positive: Weakness. Negative: Headache, Paresthesia, Numbness, Syncope All Other Systems Reviewed And Are Negative: Yes Physical Exam Triage Information Reviewed: Yes Vital Signs On Initial Exam: Initial Vitals Temp Pulse Resp BP Pulse Ox 98.2 F 55 15 121/48 94 08/12/18 15:29 08/12/18 15:29 08/12/18 15:29 08/12/18 15:29 08/12/18 15:29 Vital Signs Reviewed: Yes Appearance: Positive: Well-Appearing, Well-Nourished Skin: Positive: Warm, Skin Color Reflects Adequate Perfusion, Other - bruising noted to face Head/Face: Positive: Normal Head/Face Inspection Eyes: Positive: EOMI, RACHELLE, Conjunctiva Clear Neck: Positive: Supple, No Lymphadenopathy Respiratory/Lung Sounds: Positive: Clear to Auscultation, Breath Sounds Present Cardiovascular: Positive: RRR, Pulses are Symmetrical in both Upper and Lower Extremities Musculoskeletal: Positive: Pain @ - right arm pain Neurological: Positive: Speech Normal Psychiatric: Positive: Normal, Affect/Mood Appropriate AVPU Assessment: Alert Diagnostics - Vital Signs Vital Signs Temp Pulse Resp BP Pulse Ox 08/12/18 15:29 98.2 F 55 15 121/48 94 - Laboratory Lab Results: Lab Results 08/12/18 08/12/18 Range/Units 17:01 17:01 WBC 8.2 (3.5-10.8) 10^3/uL RBC 3.37 L (3.70-4.87) 10^6 /uL Hgb 9.9 L (12.0-16.0) g/dL Hct 30 L (33-41) % MCV 89 (80-97) fL MCH 29 (27-31) pg MCHC 33 (31-36) g/dL RDW 15 (10.5-15) % Plt Count 143 L (150-450) 10^3/uL MPV 8.5 (7.4-10.4) fL Neut % (Auto) 74.3 % Lymph % (Auto) 17.0 % [place] % (Auto) 5.9 % Eos % (Auto) 2.2 % Baso % (Auto) 0.6 % Absolute Neuts (auto) 6.1 (1.5-7.7) 10^3/ul Absolute Lymphs (auto) 1.4 (1.0-4.8) 10^3/ul Absolute Monos (auto) 0.5 (0-0.8) 10^3/ul Absolute Eos (auto) 0.2 (0-0.6) 10^3/ul Absolute Basos (auto) 0 (0-0.2) 10^3/ul Absolute Nucleated RBC 0 10^3/ul Nucleated RBC % 0.1 INR (Anticoag Therapy) 1.94 H (0.82-1.09) APTT 36.0 (26.0-36.3) seconds Result Diagrams: 08/12/18 17:01 08/12/18 17:01 Lab Statement: Any lab studies that have been ordered have been reviewed, and results considered in the medical decision making process. Course/Dx Course Of Treatment: During the course of treatment, the patient is evaluated for frequent falls and weakness. Family at bedside state they are no longer able to care for her at home and wished to have her admitted until home health services or a nursing placement can be made. Discussed case with Dr. Lind, who agrees to admit for weakness. She continues to have some bruising to the abdomen of the right side from her fall last week, a CT of the chest, abdomen, pelvis was obtained as well as a CT of the right upper extremity. This is all pending. Labs are pending and UA is pending. She will be admitted for weakness and in attempt to find placement. - Diagnoses Differential Diagnosis/HQI/PQRI: Positive: Other Provider Diagnoses: Weakness - Physician Notifications Discussed Care of Patient With: Esmer Lind Instructed by Provider To: Admit As Inpatient Discharge - Sign-Out/Discharge Documenting (check all that apply): Patient Departure All imaging exams completed and their final reports reviewed: Yes Patient Received Moderate/Deep Sedation with Procedure: No - Discharge Plan Condition: Fair Disposition: ADMITTED TO [facility] - Billing Disposition and Condition Condition: FAIR Disposition: Admitted to [facility]
[2018-08-12] MEDS ORDERED: Acetaminophen TAB* 325 MG PO PRN (18:11)
[2018-08-12] MEDS ORDERED: Nitroglycerin TAB 0.4 MG* 0.4 MG TAB SL PRN (18:11)
[2018-08-12] MEDS ORDERED: Dextrose 50% Syringe 50 ML* 25 GM/50 ML SYRINGE IV PUSH PRN (18:26)
[2018-08-12] MEDS: Metoprolol Tartrate TAB* 25 MG PO SCH (20:33)
[2018-08-12] MEDS: Hydrocodone/Acetamin 10/325 1 TAB PO PRN (20:33)
[2018-08-12] MEDS: Citalopram TAB* 10 MG PO SCH (20:34)
[2018-08-12] MEDS: Magnesium Oxide TAB* 400 MG PO SCH (20:34)
[2018-08-12] MEDS: Sotalol TAB* 80 MG PO SCH (20:34)
[2018-08-12] MEDS: Atorvastatin* 80 MG TAB PO SCH (20:34)
[2018-08-12] MEDS: Apixaban* 5 MG TAB PO SCH (20:34)
[2018-08-12] MEDS: Insulin LISPRO* 1 UNITS UNIT SUBCUT SCH (20:35)
[2018-08-12] MEDS: Insulin GLARGINE(*) 1 UNITS UNIT SUBCUT SCH (21:13)
[2018-08-12] MEDS: chlordiazePOXIDE/Clidinium 1 CAP CAP PO SCH (21:13)
--- NOTE | 2018-08-12 23:23 | HP ---
ADMITTING HISTORY AND PHYSICAL: DATE OF ADMISSION: 08/12/18 CHIEF COMPLAINT: Frequent falls. HISTORY OF PRESENT ILLNESS: The patient is a 77-year-old lady with a history of CAD, status post bypass; ischemic cardiomyopathy; diabetes and peripheral arterial disease as well as paroxysmal AFib, on Eliquis, who over the course of several months has had subsequent falls leading to her presenting to the ED and sometimes admission. She was last admitted back in March for a chief complaint of weakness and confusion of unclear etiology making her more prone to falls and unsteady gait. Since her discharge she had been in her usual state of health with gait instability, but was seen in the ED just as recently as last week after a fall causing bruising to the mouth and nose area. Maxillofacial CT and brain CT at the time was obtained, which was otherwise unremarkable. A rib series was done and showed some rib fractures to the right. At that time, she was sent home and daughter was able to take 1 week off of work and was able to stay at home with her. Unfortunately, she was unable to secure health aides in a timely fashion and mentioned that she is no longer able to take care of her mom. Her at bedside also reiterated that he still works full-time and will be unable to take care of her 24x7, which she has been frequently needing at home. PAST MEDICAL AND SURGICAL HISTORY: CAD, status post 2-vessel bypass in 1998. History of ventricular tachycardia, ischemic cardiomyopathy, diabetes, right lower extremity DVT, hypertension, hypothyroidism, depression, peripheral arterial disease, GERD. History of atrial fibrillation, status post AICD pacemaker placement. Two-vessel CABG back in 1998, status post battery replacement of her pacemaker back in January 2018, status post cholecystectomy and . MEDICATIONS: Her home medications are as follows: 1. Omeprazole. 2. Chlordiazepoxide. 3. Furosemide. 4. Metoprolol. 5. Aspirin. 6. Klor-Con. 7. Multivitamins. 8. Lipitor. 9. Calcium. 10. Probiotic. 11. Tylenol. 12. Magnesium supplementations. 13. Plavix. 14. Synthroid. 15. Lantus. 16. Citalopram. 17. Benazepril. 18. Eliquis. 19. Sotalol. 20. Nitroglycerin p.r.n. ALLERGIES: Xarelto. FAMILY HISTORY: Mother with a history of CAD, sister has a history of hypertension, father and sister with diabetes. No reported history of cancer. SOCIAL HISTORY: The patient reports that she quit smoking back in 1998, prior to that she had a [id number] smoking history. She denies any history of alcohol or illicit drug use. She is . She lives with her , but unfortunately her works 40 hours a week at [employer]. Surrogate decision maker is her in the event that she is unable to make her own decisions. She is full code. REVIEW OF SYSTEMS: The patient mentions that she has some arm pain for over 10 in the pain scale. Other than this, she denied any headaches, dizziness, fevers , chills, nausea, vomiting, chest pain, shortness of breath, increased cough or sputum production, abdominal pain, diarrhea, constipation, pain and/or increased frequency on urination, myalgias, arthralgias, throat pain or new skin lesions. The rest of the 14-point review of systems are otherwise unremarkable. PHYSICAL EXAMINATION GENERAL Appearance: The patient is awake, not in acute distress. VITAL SIGNS: Most recent vital signs of record with blood pressure of 121/48, 98.2 degrees Fahrenheit, 55 beats per minute heart rate, 15 per respiratory rate , saturating at 94% on room air. HEENT: Normocephalic. The patient has visible old purplish bruises around her chin and facial area from a previous documented fall. PERRLA. Extraocular muscles intact. Moist oral mucosa. Negative throat erythema. NECK: Soft, supple with no cervical lymphadenopathy. Difficult to assess JVD given the patient's obesity. CHEST: Clear to auscultation bilaterally. Good air entry. No wheezes, rales, or rhonchi. HEART: S1 and S2, within normal limits, regular rate and rhythm. No murmurs, rubs, or gallops. ABDOMEN: Soft, nondistended, nontender. Normoactive bowel sounds x4 quadrants. EXTREMITIES: No cyanosis, clubbing, or edema. SKIN: Warm to touch. Most recent and pertinent laboratories and imaging shows CT of the chest, abdomen, and pelvis without contrast, shows right-sided rib fractures without pneumothorax as described, atherosclerosis and diverticulosis. DIAGNOSTIC STUDIES/LAB DATA: Right clavicle x-ray, right forearm x-ray and right humerus x ray were all unremarkable for acute osseous injury. ASSESSMENT AND PLAN: The patient is a 77-year-old lady with a history of coronary artery disease with 2-vessel bypass, peripheral arterial disease, gastroesophageal reflux disease, diabetes, and paroxysmal atrial fibrillation, admitted for recurrent falls. 1. Frequent falls. We will admit the patient and consult social work associate for placement given the patient's family is unable to take care of her. 2. Rib fracture. Continue p.r.n. pain management, and we will place the patient on p.r.n. Dilaudid for breakthrough through the appropriate holding order. We will place the patient on incentive spirometry. 3. Diabetes mellitus. Continue Lantus as ordered, and we will place the patient on insulin sliding scale and continue to monitor fingersticks q.a.c. and h.s. 4. Coronary artery disease, status post coronary artery bypass graft, continue aspirin and Plavix, metoprolol, and sotalol. 5. Hypothyroidism. Continue levothyroxine. Most recent TSH was done just last March and it was found to be within normal limits. 6. Depression. Continue citalopram. 7. Paroxysmal atrial fibrillation. Continue metoprolol as well as apixaban. 8. Anemia. We will check iron studies. Previous iron studies back in 2011 suggests anemia of chronic disease, but we will confirm. 9. DVT prophylaxis: The patient is on apixaban. 10. Disposition: For PT eval and for social work associate consult. [id number]/[facility] #: [id number] JEANETH
[2018-08-13] MEDS: HYDROmorphone INJ1* 1 MG/ML SYRINGE IV SLOW PU PRN (04:57)
[2018-08-13] MEDS: Levothyroxine TAB* 25 MCG TAB PO SCH (04:57)
[2018-08-13 06:51] LABS: ABS Basophils 0 10^3/ul (0-0.2); ABS Eosinophils 0.3 10^3/ul (0-0.6); ABS Lymphocytes 1.2 10^3/ul (1.0-4.8); ABS Monocytes 0.5 10^3/ul (0-0.8); ABS Neutrophils 4.7 10^3/ul (1.5-7.7); ABS Nucleated RBC 0 10^3/ul; Eosinophil % 3.9 %; Hematocrit 29 % (33-41); Hemoglobin 9.6 g/dL (12.0-16.0); Lymphocyte % 17.5 %; Mean Corpuscular HGB Conc 34 g/dL (31-36); Mean Corpuscular Hemoglobin 29 pg (27-31); Mean Corpuscular Volume 88 fL (80-97); Mean Platelet Volume 8.3 fL (7.4-10.4); Nucleated Red Blood Cells % 0.1; Platelet Count 138 10^3/uL (150-450); Red Blood Count 3.29 10^6 /uL (3.70-4.87); Red Cell Distribution Width 15 % (10.5-15); White Blood Count 6.7 10^3/uL (3.5-10.8)
[2018-08-13 07:08] LABS: ALT 12 U/L (7-52); AST 17 U/L (13-39); Albumin 2.8 g/dL (3.2-5.2); Albumin/Globulin Ratio 0.8 (1-3); Alkaline Phosphatase 105 U/L (34-104); Anion Gap 3 mmol/L (2-11); BUN/Creatinine Ratio 29.8 (8-20); Blood Urea Nitrogen 17 mg/dL (6-24); CO2 Carbon Dioxide 31 mmol/L (22-32); Calcium 8.8 mg/dL (8.6-10.3); Chloride 103 mmol/L (101-111); EGFR African American 124.8 (>60); EGFR Non-African American 103.1 (>60); Globulin 3.3 g/dL (2-4); Glucose 84 mg/dL (70-100); Phosphorus 3.2 mg/dL (2.5-5.0); Potassium 3.9 mmol/L (3.5-5.0); Sodium 137 mmol/L (135-145); Total Protein 6.1 g/dL (6.4-8.9)
[2018-08-13 07:27] LABS: Ferritin 90.4 ng/mL (11-307)
[2018-08-13 07:31] LABS: Folate > 20.00 ng/mL (>3.99)
[2018-08-13] MEDS: Insulin LISPRO* 1 UNITS UNIT SUBCUT SCH ×4 (07:59→21:23)
[2018-08-13] MEDS: Pantoprazole TAB * 40 MG TAB PO SCH (08:44)
[2018-08-13] MEDS: Furosemide TAB* 40 MG PO SCH (08:45)
[2018-08-13] MEDS: Aspirin EC TAB* 81 MG TAB.EC PO SCH (08:45)
[2018-08-13] MEDS: Citalopram TAB* 10 MG PO SCH ×2 (08:46→20:46)
[2018-08-13] MEDS: Donepezil TAB* 5 MG PO SCH (08:46)
[2018-08-13] MEDS: Apixaban* 5 MG TAB PO SCH ×2 (08:46→20:46)
[2018-08-13] MEDS: Potassium Chlor TAB* 20 MEQ TAB.ER PO SCH ×3 (08:47→17:41)
[2018-08-13] MEDS: chlordiazePOXIDE/Clidinium 1 CAP CAP PO SCH ×2 (08:47→20:45)
[2018-08-13] MEDS: Magnesium Oxide TAB* 400 MG PO SCH ×2 (08:47→20:47)
[2018-08-13] MEDS: Clopidogrel TAB* 75 MG PO SCH (08:47)
[2018-08-13] MEDS: Insulin GLARGINE(*) 1 UNITS UNIT SUBCUT SCH ×2 (08:48→21:22)
[2018-08-13] MEDS: Sotalol TAB* 80 MG PO SCH ×2 (09:11→20:46)
[2018-08-13] MEDS: Hydrocodone/Acetamin 10/325 1 TAB PO PRN ×2 (09:16→21:27)
[2018-08-13] MEDS: Metoprolol Tartrate TAB* 25 MG PO SCH ×2 (09:22→20:46)
--- NOTE | 2018-08-13 17:38 | PN ---
Subjective Date of Service: 08/13/18 Interval History: Pt seen and examined. Meds and labs reviewed. CC: N/A ROS: Denied MCGRAW/dizziness, F/C, N/V, CP, SOB, increased cough, sputum production , abd pain, diarrhea, constipation, dysuria, myalgias, arthralgias, throat pain , and new skin lesions. The rest of the 14 point ROS are unremarkable. PHYSICAL EXAM: GEN APPEARANCE: Awake, not in acute distress HEENT: NC/(+) purplish old bruises around her chin and facial area from previous fall, PERRLA, moist oral mucosa, (-) throat erythema NECK: Soft, supple, (-) cervical LAD, (-)JVD HEART: S1S2 WNL, RRR, No MRG CHEST: CTA, BL, GAE, No W/R/R ABD: Soft, ND/NT, NABS 4x Q EXT: No C/C/E SKIN: Warm to touch PSYCH: No active psychosis, hallucinations, depression, SI/HI Objective Active Medications: Acetaminophen (Tylenol Tab*) 650 mg PO Q6H PRN PRN Reason: PAIN Hydrocodone Bitart/Acetaminophen ([place] 10/325 (Nf)) 1 tab PO Q8H PRN PRN Reason: PAIN Last Admin: 08/13/18 09:16 Dose: 1 tab Apixaban (Eliquis*) 5 mg PO BID [facility] Last Admin: 08/13/18 08:46 Dose: 5 mg Aspirin (Aspirin Ec Tab*) 81 mg PO DAILY [facility] Last Admin: 08/13/18 08:45 Dose: 81 mg Atorvastatin Calcium (Lipitor*) 80 mg PO BEDTIME [facility] Last Admin: 08/12/18 20:34 Dose: 80 mg Chlordiazepoxide/Clidinium (Librax) 1 cap PO BID [facility] Last Admin: 08/13/18 08:47 Dose: 1 cap Citalopram Hydrobromide (Celexa Tab*) 10 mg PO BID [facility] Last Admin: 08/13/18 08:46 Dose: 10 mg Clopidogrel Bisulfate (Plavix Tab*) 75 mg PO DAILY [facility] Last Admin: 08/13/18 08:47 Dose: 75 mg Dextrose (D50w Syringe 50 Ml*) 12.5 gm IV PUSH .FOR FS < 60 - SS PRN PRN Reason: FS < 60 Donepezil HCl (Aricept Tab*) 5 mg PO DAILY [facility] Last Admin: 08/13/18 08:46 Dose: 5 mg Furosemide (Lasix Tab*) 100 mg PO DAILY [facility] Last Admin: 08/13/18 08:45 Dose: 100 mg Hydromorphone HCl (Dilaudid Inj1s*) 0.5 mg IV SLOW PU Q8H PRN PRN Reason: PAIN Last Admin: 08/13/18 04:57 Dose: 0.5 mg Insulin Glargine (Lantus(*)) 15 units SUBCUT BID [facility] Last Admin: 08/13/18 08:48 Dose: 15 unit Insulin Human Lispro (Humalog*) 0 units SUBCUT [facility]; Protocol Last Admin: 08/13/18 16:53 Dose: Not Given Levothyroxine Sodium (Synthroid Tab*) 25 mcg PO DAILY@0600 [facility] Last Admin: 08/13/18 04:57 Dose: 25 mcg Magnesium Oxide (Magox 400 Tab*) 400 mg PO BID [facility] Last Admin: 08/13/18 08:47 Dose: 400 mg Metoprolol Tartrate (Lopressor Tab*) 25 mg PO BID [facility] Last Admin: 08/13/18 09:22 Dose: Not Given Nitroglycerin (Nitroglycerin Tab 0.4 Mg*) 0.4 mg SL Q5M PRN PRN Reason: chest pain Pantoprazole Sodium (Protonix Tab*) 40 mg PO DAILY [facility] Last Admin: 08/13/18 08:44 Dose: 40 mg Potassium Chloride (Klor Con Er Tab*) 40 meq PO TID WITH MEALS [facility] Last Admin: 08/13/18 12:15 Dose: 40 meq Sotalol HCl (Betapace Tab*) 40 mg PO BID [facility] Last Admin: 08/13/18 09:11 Dose: 40 mg Vital Signs - 8 hr 08/13/18 08/13/18 08/13/18 10:45 11:26 11:37 Temperature 97.6 F Pulse Rate 56 Respiratory 18 18 16 Rate Blood Pressure 109/44 (mmHg) O2 Sat by Pulse 95 Oximetry Oxygen Devices in Use Now: None Result Diagrams: 08/13/18 06:32 08/13/18 06:32 Additional Lab and Data: Lab Results 08/12/18 08/12/18 Range/Units 17:01 17:01 WBC 8.2 (3.5-10.8) 10^3/uL RBC 3.37 L (3.70-4.87) 10^6 /uL Hgb 9.9 L (12.0-16.0) g/dL Hct 30 L (33-41) % MCV 89 (80-97) fL MCH 29 (27-31) pg MCHC 33 (31-36) g/dL RDW 15 (10.5-15) % Plt Count 143 L (150-450) 10^3/uL MPV 8.5 (7.4-10.4) fL Neut % (Auto) 74.3 % Lymph % (Auto) 17.0 % [place] % (Auto) 5.9 % Eos % (Auto) 2.2 % Baso % (Auto) 0.6 % Absolute Neuts (auto) 6.1 (1.5-7.7) 10^3/ul Absolute Lymphs (auto) 1.4 (1.0-4.8) 10^3/ul Absolute Monos (auto) 0.5 (0-0.8) 10^3/ul Absolute Eos (auto) 0.2 (0-0.6) 10^3/ul Absolute Basos (auto) 0 (0-0.2) 10^3/ul Absolute Nucleated RBC 0 10^3/ul Nucleated RBC % 0.1 INR (Anticoag Therapy) 1.94 H (0.82-1.09) APTT 36.0 (26.0-36.3) seconds Microbiology and Other Data: Microbiology 08/12/18 22:00 Nasal Screen MRSA (PCR) - Final Nasal Mrsa Not Detected Assess/Plan/Problems-Billing Assessment: - Patient Problems (1) Frequent falls Current Visit: Yes Status: Acute Code(s): R29.6 - REPEATED FALLS SNOMED Code(s): 522162978 Comment: -D/W Social workers as family is not able to take care of pt anymore (2) Rib fracture Current Visit: Yes Status: Acute Code(s): S22.39XA - FRACTURE OF ONE RIB, UNSP SIDE, INIT FOR CLOS FX SNOMED Code(s): 25667085 Comment: -Continue incentive spirometry and PRN pain meds (3) Diabetes 1.5, managed as type 2 Current Visit: Yes Status: Acute Code(s): E13.9 - OTHER SPECIFIED DIABETES MELLITUS WITHOUT COMPLICATIONS SNOMED Code(s): 794083587 Comment: -Well controlled -Continue Lantus and ISS (4) CAD (coronary artery disease) Current Visit: No Status: Acute Code(s): I25.10 - ATHSCL HEART DISEASE OF [place] CORONARY ARTERY W/O ANG PCTRS SNOMED Code(s): 31843199 Comment: -Continue ASA, Plavix, Metoprolol, and Sotalol (5) Hypothyroidism Current Visit: Yes Status: Acute Code(s): E03.9 - HYPOTHYROIDISM, UNSPECIFIED SNOMED Code(s): 46764400 Comment: -Continue Levothyroxine (6) Depression Current Visit: No Status: Chronic Code(s): F32.9 - MAJOR DEPRESSIVE DISORDER , SINGLE EPISODE, UNSPECIFIED SNOMED Code(s): 83114636 Comment: -Continue Citalopram (7) Afib Current Visit: No Status: Chronic Code(s): I48.91 - UNSPECIFIED ATRIAL FIBRILLATION SNOMED Code(s): 34469218 Comment: -Continue Metoprolol and Apixaban (8) DVT prophylaxis Current Visit: Yes Status: Acute Code(s): CFM4515 - SNOMED Code(s): 435955107 Comment: -On Apixaban Status and Disposition: -As above -For rehab and possible transition to LTC placement
[2018-08-13 17:47] LABS: % Iron Saturation 9 % (15-55); Iron 24 ug/dL (50-212); Total Iron Binding Capacity 256 mcg/dL (250-450); Transferrin 183 mg/dL (203-362)
[2018-08-13] MEDS: Atorvastatin* 80 MG TAB PO SCH (20:46)
[2018-08-14] MEDS: Hydrocodone/Acetamin 10/325 1 TAB PO PRN ×2 (05:22→21:36)
[2018-08-14] MEDS: Levothyroxine TAB* 25 MCG TAB PO SCH (05:23)
[2018-08-14] MEDS: Metoprolol Tartrate TAB* 25 MG PO SCH ×2 (08:48→21:36)
[2018-08-14] MEDS: Potassium Chlor TAB* 20 MEQ TAB.ER PO SCH ×3 (09:46→16:47)
[2018-08-14] MEDS: Donepezil TAB* 5 MG PO SCH (09:46)
[2018-08-14] MEDS: Citalopram TAB* 10 MG PO SCH ×2 (09:46→21:36)
[2018-08-14] MEDS: Clopidogrel TAB* 75 MG PO SCH (09:46)
[2018-08-14] MEDS: Pantoprazole TAB * 40 MG TAB PO SCH (09:46)
[2018-08-14] MEDS: Magnesium Oxide TAB* 400 MG PO SCH ×2 (09:46→21:36)
[2018-08-14] MEDS: Apixaban* 5 MG TAB PO SCH ×2 (09:47→21:37)
[2018-08-14] MEDS: Furosemide TAB* 40 MG PO SCH (09:47)
[2018-08-14] MEDS: Aspirin EC TAB* 81 MG TAB.EC PO SCH (09:47)
[2018-08-14] MEDS: Insulin GLARGINE(*) 1 UNITS UNIT SUBCUT SCH ×2 (09:48→21:37)
[2018-08-14] MEDS: Insulin LISPRO* 1 UNITS UNIT SUBCUT SCH ×4 (09:51→21:57)
[2018-08-14] MEDS: Sotalol TAB* 80 MG PO SCH ×2 (09:53→22:57)
[2018-08-14] MEDS: chlordiazePOXIDE/Clidinium 1 CAP CAP PO SCH ×2 (09:55→21:58)
--- NOTE | 2018-08-14 14:24 | PN ---
Subjective Date of Service: 08/14/18 Interval History: Pt seen and examined. Meds and labs reviewed. CC: N/A ROS: Denied MCGRAW/dizziness, F/C, N/V, CP, SOB, increased cough, sputum production , abd pain, diarrhea, constipation, dysuria, myalgias, arthralgias, throat pain , and new skin lesions. The rest of the 14 point ROS are unremarkable. PHYSICAL EXAM: GEN APPEARANCE: Awake, not in acute distress HEENT: NC/(+) purplish old bruises around her chin and facial area from previous fall, PERRLA, moist oral mucosa, (-) throat erythema NECK: Soft, supple, (-) cervical LAD, (-)JVD HEART: S1S2 WNL, RRR, No MRG CHEST: CTA, BL, GAE, No W/R/R ABD: Soft, ND/NT, NABS 4x Q EXT: No C/C/E SKIN: Warm to touch PSYCH: No active psychosis, hallucinations, depression, SI/HI Objective Active Medications: Acetaminophen (Tylenol Tab*) 650 mg PO Q6H PRN PRN Reason: PAIN Hydrocodone Bitart/Acetaminophen ([place] 10/325 (Nf)) 1 tab PO Q8H PRN PRN Reason: PAIN Last Admin: 08/14/18 05:22 Dose: 1 tab Apixaban (Eliquis*) 5 mg PO BID [facility] Last Admin: 08/14/18 09:47 Dose: 5 mg Aspirin (Aspirin Ec Tab*) 81 mg PO DAILY [facility] Last Admin: 08/14/18 09:47 Dose: 81 mg Atorvastatin Calcium (Lipitor*) 80 mg PO BEDTIME [facility] Last Admin: 08/13/18 20:46 Dose: 80 mg Chlordiazepoxide/Clidinium (Librax) 1 cap PO BID [facility] Last Admin: 08/14/18 09:55 Dose: 1 cap Citalopram Hydrobromide (Celexa Tab*) 10 mg PO BID [facility] Last Admin: 08/14/18 09:46 Dose: 10 mg Clopidogrel Bisulfate (Plavix Tab*) 75 mg PO DAILY [facility] Last Admin: 08/14/18 09:46 Dose: 75 mg Dextrose (D50w Syringe 50 Ml*) 12.5 gm IV PUSH .FOR FS < 60 - SS PRN PRN Reason: FS < 60 Donepezil HCl (Aricept Tab*) 5 mg PO DAILY [facility] Last Admin: 08/14/18 09:46 Dose: 5 mg Furosemide (Lasix Tab*) 100 mg PO DAILY [facility] Last Admin: 08/14/18 09:47 Dose: 100 mg Hydromorphone HCl (Dilaudid Inj1s*) 0.5 mg IV SLOW PU Q8H PRN PRN Reason: PAIN Last Admin: 08/13/18 04:57 Dose: 0.5 mg Insulin Glargine (Lantus(*)) 18 units SUBCUT BID [facility] Insulin Human Lispro (Humalog*) 0 units SUBCUT ACHS [facility]; Protocol Last Admin: 08/14/18 13:12 Dose: 6 units Levothyroxine Sodium (Synthroid Tab*) 25 mcg PO DAILY@0600 [facility] Last Admin: 08/14/18 05:23 Dose: 25 mcg Magnesium Oxide (Magox 400 Tab*) 400 mg PO BID [facility] Last Admin: 08/14/18 09:46 Dose: 400 mg Metoprolol Tartrate (Lopressor Tab*) 25 mg PO BID [facility] Last Admin: 08/14/18 08:48 Dose: Not Given Nitroglycerin (Nitroglycerin Tab 0.4 Mg*) 0.4 mg SL Q5M PRN PRN Reason: chest pain Pantoprazole Sodium (Protonix Tab*) 40 mg PO DAILY [facility] Last Admin: 08/14/18 09:46 Dose: 40 mg Potassium Chloride (Klor Con Er Tab*) 40 meq PO TID WITH MEALS [facility] Last Admin: 08/14/18 13:12 Dose: 40 meq Sotalol HCl (Betapace Tab*) 40 mg PO BID [facility] Last Admin: 08/14/18 09:53 Dose: 40 mg Vital Signs - 8 hr 08/14/18 08/14/18 08/14/18 07:20 07:47 07:50 Temperature 97.8 F Pulse Rate 59 Respiratory 16 16 Rate Blood Pressure 114/42 (mmHg) O2 Sat by Pulse 88 92 Oximetry 08/14/18 08/14/18 08/14/18 08:00 09:55 12:00 Temperature Pulse Rate Respiratory 18 16 18 Rate Blood Pressure (mmHg) O2 Sat by Pulse Oximetry 08/14/18 08/14/18 12:14 13:46 Temperature 98.1 F 98.6 F Pulse Rate 57 63 Respiratory 18 17 Rate Blood Pressure 116/43 132/54 (mmHg) O2 Sat by Pulse 93 98 Oximetry Oxygen Devices in Use Now: None Result Diagrams: 08/13/18 06:32 08/13/18 06:32 Additional Lab and Data: Lab Results 08/12/18 08/12/18 Range/Units 17:01 17:01 WBC 8.2 (3.5-10.8) 10^3/uL RBC 3.37 L (3.70-4.87) 10^6 /uL Hgb 9.9 L (12.0-16.0) g/dL Hct 30 L (33-41) % MCV 89 (80-97) fL MCH 29 (27-31) pg MCHC 33 (31-36) g/dL RDW 15 (10.5-15) % Plt Count 143 L (150-450) 10^3/uL MPV 8.5 (7.4-10.4) fL Neut % (Auto) 74.3 % Lymph % (Auto) 17.0 % [place] % (Auto) 5.9 % Eos % (Auto) 2.2 % Baso % (Auto) 0.6 % Absolute Neuts (auto) 6.1 (1.5-7.7) 10^3/ul Absolute Lymphs (auto) 1.4 (1.0-4.8) 10^3/ul Absolute Monos (auto) 0.5 (0-0.8) 10^3/ul Absolute Eos (auto) 0.2 (0-0.6) 10^3/ul Absolute Basos (auto) 0 (0-0.2) 10^3/ul Absolute Nucleated RBC 0 10^3/ul Nucleated RBC % 0.1 INR (Anticoag Therapy) 1.94 H (0.82-1.09) APTT 36.0 (26.0-36.3) seconds Microbiology and Other Data: Microbiology 08/12/18 22:00 Nasal Screen MRSA (PCR) - Final Nasal Mrsa Not Detected Assess/Plan/Problems-Billing Assessment: - Patient Problems (1) Frequent falls Current Visit: Yes Status: Acute Code(s): R29.6 - REPEATED FALLS SNOMED Code(s): 412697621 Comment: -D/W Social workers as family is not able to take care of pt anymore -[facility]ik[facility] (2) Rib fracture Current Visit: Yes Status: Acute Code(s): S22.39XA - FRACTURE OF ONE RIB, UNSP SIDE, INIT FOR CLOS FX SNOMED Code(s): 75454417 Comment: -Continue incentive spirometry and PRN pain meds (3) Diabetes 1.5, managed as type 2 Current Visit: Yes Status: Acute Code(s): E13.9 - OTHER SPECIFIED DIABETES MELLITUS WITHOUT COMPLICATIONS SNOMED Code(s): 738277889 Comment: -Will increase Lantus to 18 units SQ as ordered -Continue ISS (4) CAD (coronary artery disease) Current Visit: No Status: Acute Code(s): I25.10 - ATHSCL HEART DISEASE OF [place] CORONARY ARTERY W/O ANG PCTRS SNOMED Code(s): 71967034 Comment: -Continue ASA, Plavix, Metoprolol, and Sotalol (5) Hypothyroidism Current Visit: Yes Status: Acute Code(s): E03.9 - HYPOTHYROIDISM, UNSPECIFIED SNOMED Code(s): 35000205 Comment: -Continue Levothyroxine (6) Depression Current Visit: No Status: Chronic Code(s): F32.9 - MAJOR DEPRESSIVE DISORDER , SINGLE EPISODE, UNSPECIFIED SNOMED Code(s): 77464140 Comment: -Continue Citalopram (7) Afib Current Visit: No Status: Chronic Code(s): I48.91 - UNSPECIFIED ATRIAL FIBRILLATION SNOMED Code(s): 05997703 Comment: -Continue Metoprolol and Apixaban (8) DVT prophylaxis Current Visit: Yes Status: Acute Code(s): WHN3766 - SNOMED Code(s): 113372148 Comment: -On Apixaban Status and Disposition: -For rehab and possible transition to LTC -For [facility]
[2018-08-14] MEDS: Atorvastatin* 80 MG TAB PO SCH (21:36)
[2018-08-15] MEDS: HYDROmorphone INJ1* 1 MG/ML SYRINGE IV SLOW PU PRN (01:51)
[2018-08-15] MEDS ORDERED: HYDROmorphone INJ1* 1 MG/ML SYRINGE IV SLOW PU PRN (02:21)
--- NOTE | 2018-08-15 02:23 | PN ---
Progress Note - Progress Note Date of Service: 08/15/18 Note: Paged for significant pain. DIfficult repositioning her due to pain and now with pressure ulcer. Increased pain medications PO and IV and frequency.
[2018-08-15] MEDS: Hydrocodone/Acetamin 10/325 1 TAB PO PRN ×2 (06:14→11:05)
[2018-08-15] MEDS: Levothyroxine TAB* 25 MCG TAB PO SCH (06:14)
[2018-08-15 06:43] LABS: ABS Basophils 0.1 10^3/ul (0-0.2); ABS Eosinophils 0.2 10^3/ul (0-0.6); ABS Lymphocytes 1.8 10^3/ul (1.0-4.8); ABS Monocytes 0.8 10^3/ul (0-0.8); ABS Neutrophils 5.3 10^3/ul (1.5-7.7); ABS Nucleated RBC 0 10^3/ul; Eosinophil % 2.1 %; Hematocrit 29 % (33-41); Hemoglobin 9.8 g/dL (12.0-16.0); Lymphocyte % 22.4 %; Mean Corpuscular HGB Conc 34 g/dL (31-36); Mean Corpuscular Hemoglobin 29 pg (27-31); Mean Corpuscular Volume 88 fL (80-97); Mean Platelet Volume 7.8 fL (7.4-10.4); Nucleated Red Blood Cells % 0; Platelet Count 172 10^3/uL (150-450); Red Blood Count 3.33 10^6 /uL (3.70-4.87); Red Cell Distribution Width 16 % (10.5-15); White Blood Count 8.1 10^3/uL (3.5-10.8)
[2018-08-15 06:49] LABS: INR 1.93 (0.82-1.09)
[2018-08-15 06:59] LABS: BUN/Creatinine Ratio 29.7 (8-20); Calcium 8.9 mg/dL (8.6-10.3); EGFR African American 109.2 (>60); EGFR Non-African American 90.2 (>60); Phosphorus 3.3 mg/dL (2.5-5.0); Potassium 4.3 mmol/L (3.5-5.0)
[2018-08-15] MEDS: Furosemide TAB* 40 MG PO SCH (07:28)
[2018-08-15] MEDS: Sotalol TAB* 80 MG PO SCH (07:28)
[2018-08-15] MEDS: Clopidogrel TAB* 75 MG PO SCH (07:29)
[2018-08-15] MEDS: Apixaban* 5 MG TAB PO SCH (07:29)
[2018-08-15] MEDS: chlordiazePOXIDE/Clidinium 1 CAP CAP PO SCH (07:29)
[2018-08-15] MEDS: Potassium Chlor TAB* 20 MEQ TAB.ER PO SCH ×2 (07:29→11:05)
[2018-08-15] MEDS: Pantoprazole TAB * 40 MG TAB PO SCH (07:29)
[2018-08-15] MEDS: Aspirin EC TAB* 81 MG TAB.EC PO SCH (07:29)
[2018-08-15] MEDS: Metoprolol Tartrate TAB* 25 MG PO SCH (07:30)
[2018-08-15] MEDS: Citalopram TAB* 10 MG PO SCH (07:30)
[2018-08-15] MEDS: Magnesium Oxide TAB* 400 MG PO SCH (07:30)
[2018-08-15] MEDS: Donepezil TAB* 5 MG PO SCH (07:30)
[2018-08-15] MEDS: Insulin LISPRO* 1 UNITS UNIT SUBCUT SCH ×2 (09:55→12:59)
[2018-08-15] MEDS: Insulin GLARGINE(*) 1 UNITS UNIT SUBCUT SCH (09:56)
[2018-08-15 10:22] LABS: TSH (Thyroid Stimulating Horm) 6.91 mcIU/mL (0.34-5.60)
[2018-08-15] MEDS ORDERED: Iron Sucrose* 200 MG in NS 0.9% 100 ML* 100 ML IVPB ONE (10:30)
[2018-08-15 12:06] VITALS: BP 108/60
--- NOTE | 2018-08-15 13:52 | DS ---
CC: Daryl Ashford MD DISCHARGE SUMMARY: DATE OF ADMISSION: 08/12/18 DATE OF DISCHARGE: 08/15/18 PRIMARY CARE PHYSICIAN: Daryl Ashford MD. DISPOSITION: To [facility]. CONDITION: Improved. PRIMARY DIAGNOSES: 1. Frequent falls with weakness. 2. Mild cognitive impairment versus dementia. SECONDARY DIAGNOSES: 1. Insulin-dependent diabetes. 2. Coronary artery disease with 2-vessel bypass in 1998. 3. History of ventricular tachycardia. 4. Ischemic cardiomyopathy. 5. Lower extremity deep venous thrombosis. 6. Hypertension. 7. Depression. 8. Hypothyroidism. 9. Peripheral arterial disease. 10. Gastroesophageal reflux disease. 11. History of atrial fibrillation on AC MEDICATIONS ON DISCHARGE: 1. Sotalol 40 mg twice a day. 2. Potassium 40 mEq PO 3 times a day. 3. Metoprolol tartrate 25mg twice a day. 4. Pantoprazole 40 mg daily. 5. Librax 1 capsule twice a day. 6. Citalopram 10 mg twice a day 7. Aspirin 81 mg daily. 8. Atorvastatin 80 mg nightly. 9. Insulin glargine 18 units twice a day. 10. [place] 10/325 every 6 hours as needed for rib pain. 11. Nitroglycerin sublingually as needed for chest pain. 12. Levothyroxine 25 mcg daily. 13. Furosemide 100 mg daily. 14. Eliquis 5 mg twice a day. 15. Ferrous sulfate 325 mg daily on an empty stomach. HISTORY OF PRESENT ILLNESS: 77W with CAD status post bypass, ischemic cardiomyopathy, diabetes, on insulin, peripheral arterial disease, depression, history of frequent falls, paroxysmal AFib, on Eliquis, who is presenting with several months of falls leading to frequent ER presentations and sometimes admissions. Her last admission was 4 months ago for weakness and confusion of unclear etiology, which made her more prone to falls and unsteady gait. Since her discharge, she has been in her usual state of health with gait instability. She had presented to the emergency room 1 week prior to this admission with a fall causing bruising to the mouth and nose. Maxillofacial CT and brain at that time were unremarkable with a rib series showing rib fractures to the right. She was sent to home from the emergency room last week and her daughter was able to stay with her initially, but the family was still unable to secure health aides and the family reports that they are no longer able to take care of her home. The still works full-time and therefore they are unable to keep up with her home needs. HOSPITAL COURSE: The patient was admitted for social work consult for placement given the family's inability to care for her at home and given her increased safety risk with frequent falls while she is on a blood thinner. Her blood pressure was normal throughout admission. She was noted to have a chronic iron deficiency anemia, and at last hospital admission, it was recommended that her primary care physician follow this up given a reported history of GI bleed. She was given 1 dose of IV iron during admissoin. Her TSH was checked while admitted and the patient's level was between 6 and 7, which is normal for a patient of her age. She was maintained on her blood thinner apixaban throughout admission. On day of discharge, the patient only reported her baseline weakness; otherwise she denied 10-point review of systems. PHYSICAL EXAMINATION: Vital Signs: Within normal limits. General: Tired- appearing elderly woman, in no acute distress. HEENT: A few purplish healing ecchymosis around her chin and facial area. Moist mucous membranes. Pupils equal, round, and reactive to light. Heart: Regular rate and rhythm. No murmurs, gallops, or rubs. Lungs: Clear to auscultation. Abdomen: Soft, nontender, nondistended. Extremities: Without edema, warm, and well perfused. PERTINENT DIAGNOSTIC STUDIES: C/A/P CT on 08/12/18 showed right-sided rib fractures without pneumothorax and diverticulosis. Humerus x-ray of the right arm with osteopenia and without injury. Forearm and clavicle x-rays of the right were also without injury, but showing osteopenia. TSH was 6.9. DISCHARGE PLAN: The patient is to go to [facility]. She is to continue her home medications as listed above; however, it is recommended that she continue to be reassessed for risk/benefit analysis of continuing on therapeutic anticoagulation given multiple falls. She should also continue to have her blood sugar and serum potassium levels monitored and her blood pressure checked as well. As noted, she should follow up with her primary care physician given concern over chronic iron deficiency anemia. 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 She was unable to have Gonzales removed during this admission, but she should continue to receive bladder training and trial of voids to eventually be able to urinate spontaneously without a catheter. She is stable for discharge to longterm and her family has been aware of plan. TIME SPENT: Approximately 60 minutes spent on discharge of this patient; more than half of which was spent with care, coordination or at bedside for interview and exam. [id number]/CPS #: [id number] JEANETH
== END 2018-08-15 14:30 | DRG 57 ==
LOC: ED 15:16 → MED 18:08 → OBSVTOIN 18:14
PROVIDERS: ADMIT Internal Medicine; ATTEND Internal Medicine
DX: G31.84 Mild cognitive impairment of uncertain or unknown etiology (principal); S22.41XA Multiple fractures of ribs, right side, initial encounter for closed fracture; I47.2 Ventricular tachycardia; F02.80 Dementia in other diseases classified elsewhere, unspecified severity, without behavioral disturbance, psychotic disturbance, mood disturbance, and anxiety; R53.1 Weakness; Z91.81 History of falling; E11.42 Type 2 diabetes mellitus with diabetic polyneuropathy; I25.10 Atherosclerotic heart disease of native coronary artery without angina pectoris; Z95.1 Presence of aortocoronary bypass graft; I25.5 Ischemic cardiomyopathy; I10 Essential (primary) hypertension; F32.9 Major depressive disorder, single episode, unspecified; E03.9 Hypothyroidism, unspecified; K21.9 Gastro-esophageal reflux disease without esophagitis; I48.0 Paroxysmal atrial fibrillation; D50.9 Iron deficiency anemia, unspecified; W18.30XA Fall on same level, unspecified, initial encounter; Y92.239 Unspecified place in hospital as the place of occurrence of the external cause; M85.831 Other specified disorders of bone density and structure, right forearm; M85.88 Other specified disorders of bone density and structure, other site; M85.821 Other specified disorders of bone density and structure, right upper arm; R26.81 Unsteadiness on feet; L89.90 Pressure ulcer of unspecified site, unspecified stage; Z74.2 Need for assistance at home and no other household member able to render care; Z79.01 Long term (current) use of anticoagulants; Z86.718 Personal history of other venous thrombosis and embolism; Z95.810 Presence of automatic (implantable) cardiac defibrillator; Z79.1 Long term (current) use of non-steroidal anti-inflammatories (NSAID); Z79.02 Long term (current) use of antithrombotics/antiplatelets; Z79.82 Long term (current) use of aspirin; Z79.4 Long term (current) use of insulin; Z79.899 Other long term (current) drug therapy; Z88.8 Allergy status to other drugs, medicaments and biological substances; Z82.49 Family history of ischemic heart disease and other diseases of the circulatory system; Z83.3 Family history of diabetes mellitus; Z87.891 Personal history of nicotine dependence
CPT/HCPCS: 36415; 71250; 74176; 80048; 80053; 82607; 82728; 82746; 83540; 83550; 83735; 84100; 84443; 84484; 85025; 85610; 85730; 87641; 99284; A9270-GY; G8978-GP-CL; G8979-GP-CI; J1170; J1756

== ENCOUNTER 2019-01-11 03:23 | Emergency (ER) | payer MEDICARE, OTHER, BC ==
--- OUTSIDE RECORDS SUMMARY | 2019-01-11 03:31 | XMS REPORT | Continuity of Care Document ---
:1940 External Reference #:[id number] Author Name Johanny Barba M.D. (transmitted by agent of provider Fozia Montesinos) Address [address] [place] [id number] Care Team Providers Name Role Phone Daryl Ashford MD - Family Medicine Care Team Information [employer] Problems Active Problems Provider Date Peripheral vascular disease Johanny Barba M.D. Onset: 09/10/2013 Pure hypercholesterolemia Johanny Barba M.D. Onset: 09/10/2013 Essential hypertension Johanny Barba M.D. Onset: 09/10/2013 Arteriosclerosis of autologous vein Johanny Barba M.D. Onset: 09/10/2013 coronary artery bypass graft Automatic implantable cardiac Johanny Barba M.D. Onset: 09/10/2013 defibrillator in situ Diabetes mellitus Johanny Barba M.D. Onset: 05/11/2014 Atherosclerotic heart disease of [place] Johanny Barba M.D. Onset: 02/08/2015 coronary artery without angina pectoris Arteriosclerosis of coronary artery Johanny Barba M.D. Onset: 02/08/2015 bypass graft Chronic ischemic heart disease Johanny Barba M.D. Onset: 01/28/2016 Encounter for planned postprocedural Hunter Gill M.D., [facility], Onset: 2017 wound closure [facility] Acute subendocardial infarction Johanny Barba M.D. Onset: 05/10/2017 Ventricular fibrillation Johanny Barba M.D. Onset: 05/10/2017 Paroxysmal atrial fibrillation Johanny Barba M.D. Onset: 05/10/2017 Social History Type Date Description Comments Sex Unknown Tobacco Use Start: Unknown End: Former Cigarette Smoker Pt denies ever Unknown smoking pipe, cigar, e-cigarettes, or using chewing tobacco. Smoking Status Reviewed: 09/27/18 Former Cigarette Smoker Pt denies ever smoking pipe, cigar, e-cigarettes, or using chewing tobacco. ETOH Use Never used alcohol Tobacco Use Start: Unknown End: Patient is a former quit in 1998 Unknown smoker Recreational Drug Use Denies Drug Use Exercise Type/Frequency Exercises regularly some walking Allergies, Adverse Reactions, Alerts Active Allergies Reaction Severity Comments Date Xarelto Bloody Stools Moderate 02/08/2015 Inactive Allergies NKDA 09/10/2013 Medications Active Medications SIG Qnty Indications Ordering Date Provider Eliquis 1 by mouth 180tabs Nathalia Cuadra, 07/23/2018 5mg Tablets twice a day N.P. Sotalol HCL 1/2 by mouth 90tabs Nathalia Cuadra, 07/23/2018 80mg Tablets twice a day N.P. Metoprolol Tartrate 1/2 by mouth 90tabs Nathalia Cuadra, 07/23/2018 50mg twice a day N.P. Tablets Citalopram Hydrobromide 1 by mouth 90tabs Nathalia Cuadra, 02/12/2018 10mg every day N.P. Tablets Magnesium Oxide 1 by mouth 30tabs Hunter Gill, 04/29/2017 400mg Tablets twice daily C[place], [facility], [facility] Nitroglycerin 1 sl q 5 mins Unknown 0.4mg Tablets x3 as needed Sub for chest pain Donepezil HCL 1 every day Unknown 5mg Tablets Chlordiazepoxide 1 cap three [place], HCL/Clidinium [place] times day ( MD Daryl 5-2.5mg morning, noon, Capsules night) Levothyroxine Sodium 1 by mouth Unknown 25mcg every day ( 1/2 Tablets hr 1 hour before break) Probiotic 1 tab bid Unknown Tablets DR Omeprazole 1 by mouth Unknown 40mg Capsules DR every day Lantus as directed Unknown 100Unit/ML Solution Tylenol as needed (pt Unknown 325mg Tablets usually take 2 before bed every night) Calcium 2 po qd Unknown 600mg Multivitamins 1 capsule daily 90caps Unknown Capsules Aspirin 1 by mouth Unknown 81mg Tablets every day Potassium Chloride ER 2 tablets by 90tabs Unknown 20Meq mouth am, 2 Tablets ER tablets at noon and 2 tablet pm (6 total per day) Lasix 2.5 by mouth 90tabs Unknown 40mg Tablets every day Lipitor 1 by mouth 30tabs Unknown 80mg Tablets every night at bedtime Immunizations Description No Information Available Vital Signs Date Vital Result Comment 10/10/2018 9:38am Heart Rate 60 /min BP Systolic 112 mmHg BP Diastolic 60 mmHg Body Temperature 98.2 F 09/27/2018 10:41am Height 65 inches 5'5" Weight 186.56 lb with shoes Heart Rate 78 /min BP Systolic 110 mmHg rue large cuff BP Diastolic 64 mmHg rue large cuff BP Systolic Sitting 114 mmHg rue large cuff BP Diastolic Sitting 64 mmHg rue large cuff Respiratory Rate 14 /min BMI (Body Mass Index) 31.0 kg/m2 Ejection Fraction 40-45% rue large cuff Results Test Date Facility Test Result H/L Range Note Lipid Panel - [facility] 09/27/2018 [facility] Creatine <pending> [address] Kinase(CK) [place] [address] [phone] Laboratory test 09/27/2018 [facility] Magnesium <pending> finding [address] [place] [address] [phone] Laboratory 07/29/2018 N2N/CCD Import Troponin I 0.01 ng/mL Studies Total Protein 8.0 g/dL 6.4-8.9 Total Bilirubin 0.40 mg/dL 0.2-1.0 Sodium Level 138 mmol/L 135-145 Potassium Level 4.3 mmol/L 3.5-5.0 Glucose Level 173 mg/dL High 70-100 Globulin 4.3 g/dL High 2-4 Estimated GFR (Non- 82.7 Estimated GFR () 100.1 Creatinine 0.69 mg/dL 0.51-0.95 Chloride Level 101 mmol/L 101-111 Carbon Dioxide Level 33 mmol/L High 22-32 Calcium Level 9.7 mg/dL 8.6-10.3 Blood Urea Nitrogen 22 mg/dL 6-24 BUN/Creatinine Ratio 31.9 High 8-20 Aspartate Amino Transf (Ast/Sgot) 26 U/L 13-39 Anion Gap 4 mmol/L 2-11 Alkaline Phosphatase 117 U/L High 34-104 Albumin/Globulin Ratio 0.9 Low 1-3 Albumin 3.7 g/dL 3.2-5.2 Alanine Aminotransferase (Alt/SGPT) 21 U/L 7-52 Laboratory Studies 07/29/2018 N2N/CCD Import Total Protein 8.0 g/dL 6.4- 8.9 Total Bilirubin 0.40 mg/dL 0.2-1.0 Sodium Level 138 mmol/L 135-145 Potassium Level 4.3 mmol/L 3.5-5.0 Glucose Level 173 mg/dL High 70-100 Globulin 4.3 g/dL High 2-4 Estimated GFR (Non- 82.7 Estimated GFR () 100.1 Creatinine 0.69 mg/dL 0.51-0.95 Chloride Level 101 mmol/L 101-111 Carbon Dioxide Level 33 mmol/L High 22-32 Calcium Level 9.7 mg/dL 8.6-10.3 Blood Urea Nitrogen 22 mg/dL 6-24 BUN/Creatinine Ratio 31.9 High 8-20 Aspartate Amino Transf (Ast/Sgot) 26 U/L 13-39 Anion Gap 4 mmol/L 2-11 Alkaline Phosphatase 117 U/L High 34-104 Albumin/Globulin Ratio 0.9 Low 1-3 Albumin 3.7 g/dL 3.2-5.2 Alanine Aminotransferase (Alt/SGPT) 21 U/L 7-52 Laboratory Studies 07/29/2018 N2N/CCD Import Total Bilirubin 0.40 mg/dL 0.2-1.0 Sodium Level 138 mmol/L 135-145 Potassium Level 4.3 mmol/L 3.5-5.0 Glucose Level 173 mg/dL High 70-100 Globulin 4.3 g/dL High 2-4 Estimated GFR (Non- 82.7 Estimated GFR () 100.1 Creatinine 0.69 mg/dL 0.51-0.95 Chloride Level 101 mmol/L 101-111 Carbon Dioxide Level 33 mmol/L High 22-32 Calcium Level 9.7 mg/dL 8.6-10.3 Blood Urea Nitrogen 22 mg/dL 6-24 BUN/Creatinine Ratio 31.9 High 8-20 Aspartate Amino Transf (Ast/Sgot) 26 U/L 13-39 Anion Gap 4 mmol/L 2-11 Alkaline Phosphatase 117 U/L High 34-104 Albumin/Globulin Ratio 0.9 Low 1-3 Albumin 3.7 g/dL 3.2-5.2 Alanine Aminotransferase (Alt/SGPT) 21 U/L 7-52 Laboratory Studies 07/29/2018 N2N/CCD Import Hematocrit 38 % 33-41 Laboratory Studies 07/29/2018 N2N/CCD Import Hemoglobin 12.4 g/dL 12.0- 16.0 Hematocrit 38 % 33-41 Laboratory Studies 07/29/2018 N2N/CCD Import Mean Corpuscular 29 pg 27- 31 Hemoglobin Hemoglobin 12.4 g/dL 12.0-16.0 Hematocrit 38 % 33-41 Laboratory Studies 07/29/2018 N2N/CCD Import Mean Corpuscular 33 g/dL 31 -36 Hemoglobin Concent Mean Corpuscular Hemoglobin 29 pg 27-31 Hemoglobin 12.4 g/dL 12.0-16.0 Hematocrit 38 % 33-41 Laboratory Studies 07/29/2018 N2N/CCD Import Mean Corpuscular Volume 88 fL 80-97 Mean Corpuscular Hemoglobin Concent 33 g/dL 31-36 Mean Corpuscular Hemoglobin 29 pg 27-31 Hemoglobin 12.4 g/dL 12.0-16.0 Hematocrit 38 % 33-41 Laboratory Studies 07/29/2018 N2N/CCD Import Mean Platelet Volume 8.6 fL 7.4-10.4 Mean Corpuscular Volume 88 fL 80-97 Mean Corpuscular Hemoglobin Concent 33 g/dL 31-36 Mean Corpuscular Hemoglobin 29 pg 27-31 Hemoglobin 12.4 g/dL 12.0-16.0 Hematocrit 38 % 33-41 Laboratory Studies 07/29/2018 N2N/CCD Import Platelet Count 124 10^3/uL Low 150-450 Mean Platelet Volume 8.6 fL 7.4-10.4 Mean Corpuscular Volume 88 fL 80-97 Mean Corpuscular Hemoglobin Concent 33 g/dL 31-36 Mean Corpuscular Hemoglobin 29 pg 27-31 Hemoglobin 12.4 g/dL 12.0-16.0 Hematocrit 38 % 33-41 Laboratory Studies 07/29/2018 N2N/CCD Import Red Blood 4.31 10^6/uL 3.70 -4.87 Count Platelet Count 124 10^3/uL Low 150-450 Mean Platelet Volume 8.6 fL 7.4-10.4 Mean Corpuscular Volume 88 fL 80-97 Mean Corpuscular Hemoglobin Concent 33 g/dL 31-36 Mean Corpuscular Hemoglobin 29 pg 27-31 Hemoglobin 12.4 g/dL 12.0-16.0 Hematocrit 38 % 33-41 Laboratory Studies 07/29/2018 N2N/[place] Import Red Cell Distribution 15 % 10.5-15 Width Red Blood Count 4.31 10^6/uL 3.70-4.87 Platelet Count 124 10^3/uL Low 150-450 Mean Platelet Volume 8.6 fL 7.4-10.4 Mean Corpuscular Volume 88 fL 80-97 Mean Corpuscular Hemoglobin Concent 33 g/dL 31-36 Mean Corpuscular Hemoglobin 29 pg 27-31 Hemoglobin 12.4 g/dL 12.0-16.0 Hematocrit 38 % 33-41 Laboratory Studies 07/29/2018 N2N/[place] Import White Blood 5.6 10^3/uL 3.5 -10.8 Count Red Cell Distribution Width 15 % 10.5-15 Red Blood Count 4.31 10^6/uL 3.70-4.87 Platelet Count 124 10^3/uL Low 150-450 Mean Platelet Volume 8.6 fL 7.4-10.4 Mean Corpuscular Volume 88 fL 80-97 Mean Corpuscular Hemoglobin Concent 33 g/dL 31-36 Mean Corpuscular Hemoglobin 29 pg 27-31 Hemoglobin 12.4 g/dL 12.0-16.0 Hematocrit 38 % 33-41 Laboratory 07/29/2018 N2N/[place] Import Alanine 21 U/L 7-52 Studies Aminotransferase (Alt/SGPT) Laboratory 07/29/2018 N2N/CCD Import Albumin 3.7 g/dL 3.2-5.2 Studies Alanine Aminotransferase (Alt/SGPT) 21 U/L 7-52 Laboratory Studies 07/29/2018 N2N/CCD Import Sodium Level 138 mmol/L 135 -145 Potassium Level 4.3 mmol/L 3.5-5.0 Glucose Level 173 mg/dL High 70-100 Globulin 4.3 g/dL High 2-4 Estimated GFR (Non- 82.7 Estimated GFR () 100.1 Creatinine 0.69 mg/dL 0.51-0.95 Chloride Level 101 mmol/L 101-111 Carbon Dioxide Level 33 mmol/L High 22-32 Calcium Level 9.7 mg/dL 8.6-10.3 Blood Urea Nitrogen 22 mg/dL 6-24 BUN/Creatinine Ratio 31.9 High 8-20 Aspartate Amino Transf (Ast/Sgot) 26 U/L 13-39 Anion Gap 4 mmol/L 2-11 Alkaline Phosphatase 117 U/L High 34-104 Albumin/Globulin Ratio 0.9 Low 1-3 Albumin 3.7 g/dL 3.2-5.2 [place] Aminotransferase (Alt/SGPT) 21 U/L 7- Laboratory Studies 07/29/2018 N2N/CCD Import Potassium Level 4.3 mmol/L 3.5-5.0 Glucose Level 173 mg/dL High 70-100 Globulin 4.3 g/dL High 2-4 Estimated GFR (Non- 82.7 Estimated GFR () 100.1 Creatinine 0.69 mg/dL 0.51-0.95 Chloride Level 101 mmol/L 101-111 Carbon Dioxide Level 33 mmol/L High 22-32 Calcium Level 9.7 mg/dL 8.6-10.3 Blood Urea Nitrogen 22 mg/dL 6-24 BUN/Creatinine Ratio 31.9 High 8-20 Aspartate Amino Transf (Ast/Sgot) 26 U/L 13-39 Anion Gap 4 mmol/L 2-11 Alkaline Phosphatase 117 U/L High 34-104 Albumin/Globulin Ratio 0.9 Low 1-3 Albumin 3.7 g/dL 3.2-5.2 Alanine Aminotransferase (Alt/SGPT) 21 U/L 7- Laboratory Studies 07/29/2018 N2N/CCD Import Glucose Level 173 mg/dL High 70-100 Globulin 4.3 g/dL High 2-4 Estimated GFR (Non- 82.7 Estimated GFR () 100.1 Creatinine 0.69 mg/dL 0.51-0.95 Chloride Level 101 mmol/L 101-111 Carbon Dioxide Level 33 mmol/L High 22-32 Calcium Level 9.7 mg/dL 8.6-10.3 Blood Urea Nitrogen 22 mg/dL 6-24 BUN/Creatinine Ratio 31.9 High 8-20 Aspartate Amino Transf (Ast/Sgot) 26 U/L 13-39 Anion Gap 4 mmol/L 2-11 Alkaline Phosphatase 117 U/L High 34-104 Albumin/Globulin Ratio 0.9 Low 1-3 Albumin 3.7 g/dL 3.2-5.2 Alanine Aminotransferase (Alt/SGPT) 21 U/L 7- Laboratory Studies 07/29/2018 N2N/CCD Import Globulin 4.3 g/dL High 2-4 Estimated GFR (Non- 82.7 Estimated GFR () 100.1 Creatinine 0.69 mg/dL 0.51-0.95 Chloride Level 101 mmol/L 101-111 Carbon Dioxide Level 33 mmol/L High 22-32 Calcium Level 9.7 mg/dL 8.6-10.3 Blood Urea Nitrogen 22 mg/dL 6-24 BUN/Creatinine Ratio 31.9 High 8-20 Aspartate Amino Transf (Ast/Sgot) 26 U/L 13-39 Anion Gap 4 mmol/L 2-11 Alkaline Phosphatase 117 U/L High 34-104 Albumin/Globulin Ratio 0.9 Low 1-3 Albumin 3.7 g/dL 3.2-5.2 Alanine Aminotransferase (Alt/SGPT) 21 U/L 7 Laboratory Studies 07/29/2018 N2N/CCD Import Estimated GFR (Non- 82.7 [place] Estimated GFR () 100.1 Creatinine 0.69 mg/dL 0.51-0.95 Chloride Level 101 mmol/L 101-111 Carbon Dioxide Level 33 mmol/L High 22-32 Calcium Level 9.7 mg/dL 8.6-10.3 Blood Urea Nitrogen 22 mg/dL 6-24 BUN/Creatinine Ratio 31.9 High 8-20 Aspartate Amino Transf (Ast/Sgot) 26 U/L 13-39 Anion Gap 4 mmol/L 2-11 Alkaline Phosphatase 117 U/L High 34-104 Albumin/Globulin Ratio 0.9 Low 1-3 Albumin 3.7 g/dL 3.2-5.2 Alanine Aminotransferase (Alt/SGPT) 21 U/L Laboratory Studies 07/29/2018 N2N/CCD Import Estimated GFR ( 100.1 [place]) Creatinine 0.69 mg/dL 0.51-0.95 Chloride Level 101 mmol/L 101-111 Carbon Dioxide Level 33 mmol/L High 22-32 Calcium Level 9.7 mg/dL 8.6-10.3 Blood Urea Nitrogen 22 mg/dL 6-24 BUN/Creatinine Ratio 31.9 High 8-20 Aspartate Amino Transf (Ast/Sgot) 26 U/L 13-39 Anion Gap 4 mmol/L 2-11 Alkaline Phosphatase 117 U/L High 34-104 Albumin/Globulin Ratio 0.9 Low 1-3 Albumin 3.7 g/dL 3.2-5.2 Alanine Aminotransferase (Alt/SGPT) 21 U/L 7 Laboratory Studies 07/29/2018 N2N/CCD Import Creatinine 0.69 mg/dL 0.51- 0.95 Chloride Level 101 mmol/L 101-111 Carbon Dioxide Level 33 mmol/L High 22-32 Calcium Level 9.7 mg/dL 8.6-10.3 Blood Urea Nitrogen 22 mg/dL 6-24 BUN/Creatinine Ratio 31.9 High 8-20 Aspartate Amino Transf (Ast/Sgot) 26 U/L 13-39 Anion Gap 4 mmol/L 2-11 Alkaline Phosphatase 117 U/L High 34-104 Albumin/Globulin Ratio 0.9 Low 1-3 Albumin 3.7 g/dL 3.2-5.2 Alanine Aminotransferase (Alt/SGPT) 21 U/L Laboratory Studies 07/29/2018 N2N/CCD Import Chloride Level 101 mmol/L 101-111 Carbon Dioxide Level 33 mmol/L High 22-32 Calcium Level 9.7 mg/dL 8.6-10.3 Blood Urea Nitrogen 22 mg/dL 6-24 BUN/Creatinine Ratio 31.9 High 8-20 Aspartate Amino Transf (Ast/Sgot) 26 U/L 13-39 Anion Gap 4 mmol/L 2-11 Alkaline Phosphatase 117 U/L High 34-104 Albumin/Globulin Ratio 0.9 Low 1-3 Albumin 3.7 g/dL 3.2-5.2 Alanine Aminotransferase (Alt/SGPT) 21 U/L Laboratory Studies 07/29/2018 N2N/CCD Import Albumin/Globulin Ratio 0.9 Low 1-3 Albumin 3.7 g/dL 3.2-5.2 Alanine Aminotransferase (Alt/SGPT) 21 U/L Laboratory Studies 07/29/2018 N2N/CCD Import Alkaline 117 U/L High 34- 104 Phosphatase Albumin/Globulin Ratio 0.9 Low 1-3 Albumin 3.7 g/dL 3.2-5.2 Alanine Aminotransferase (Alt/SGPT) 21 U/L Laboratory Studies 07/29/2018 N2N/CCD Import Anion Gap 4 mmol/L 2-11 Alkaline Phosphatase 117 U/L High 34-104 Albumin/Globulin Ratio 0.9 Low 1-3 Albumin 3.7 g/dL 3.2-5.2 Alanine Aminotransferase (Alt/SGPT) 21 U/L Laboratory Studies 07/29/2018 N2N/CCD Import Aspartate Amino Transf 26 U/L 13-39 (Ast/Sgot) Anion Gap 4 mmol/L 2-11 Alkaline Phosphatase 117 U/L High 34-104 Albumin/Globulin Ratio 0.9 Low 1-3 Albumin 3.7 g/dL 3.2-5.2 Alanine Aminotransferase (Alt/SGPT) 21 U/L Laboratory Studies 07/29/2018 N2N/CCD Import Carbon Dioxide 33 mmol/L High 22-32 Level Calcium Level 9.7 mg/dL 8.6-10.3 Blood Urea Nitrogen 22 mg/dL 6-24 BUN/Creatinine Ratio 31.9 High 8-20 Aspartate Amino Transf (Ast/Sgot) 26 U/L 13-39 Anion Gap 4 mmol/L 2-11 Alkaline Phosphatase 117 U/L High 34-104 Albumin/Globulin Ratio 0.9 Low 1-3 Albumin 3.7 g/dL 3.2-5.2 Alanine Aminotransferase (Alt/SGPT) 21 U/L Laboratory Studies 07/29/2018 N2N/CCD Import Calcium Level 9.7 mg/dL 8.6 -10.3 Blood Urea Nitrogen 22 mg/dL 6-24 BUN/Creatinine Ratio 31.9 High 8-20 Aspartate Amino Transf (Ast/Sgot) 26 U/L 13-39 Anion Gap 4 mmol/L 2-11 Alkaline Phosphatase 117 U/L High 34-104 Albumin/Globulin Ratio 0.9 Low 1-3 Albumin 3.7 g/dL 3.2-5.2 Alanine Aminotransferase (Alt/SGPT) 21 U/L Laboratory Studies 07/29/2018 N2N/CCD Import Blood Urea Nitrogen 22 mg/dL 6-24 BUN/Creatinine Ratio 31.9 High 8-20 Aspartate Amino Transf (Ast/Sgot) 26 U/L 13-39 Anion Gap 4 mmol/L 2-11 Alkaline Phosphatase 117 U/L High 34-104 Albumin/Globulin Ratio 0.9 Low 1-3 Albumin 3.7 g/dL 3.2-5.2 Alanine Aminotransferase (Alt/SGPT) 21 U/L 7-52 Laboratory Studies 07/29/2018 [place] Import BUN/Creatinine Ratio 31.9 High 8-20 Aspartate Amino Transf (Ast/Sgot) 26 U/L 13-39 Anion Gap 4 mmol/L 2-11 Alkaline Phosphatase 117 U/L High 34-104 Albumin/Globulin Ratio 0.9 Low 1-3 Albumin 3.7 g/dL 3.2-5.2 Alanine Aminotransferase (Alt/SGPT) 21 U/L 7-52 Laboratory Studies 07/11/2018 [place] Import Magnesium Level 2.0 mg/dL 1.9-2.7 Lipase 16 U/L 11.0-82.0 C-Reactive Protein 5.52 mg/L 0-8.00 Lactic Acid Level 0.6 mmol/L 0.5-2.0 Nucleated Red Blood Cells % 0 Nucleated RBC Absolute Count (auto) 0 10^3/ul Neutrophils (%) (Auto) 68.6 % Monocytes (%) (Auto) 7.6 % Lymphocytes (%) (Auto) 20.1 % Eosinophils (%) (Auto) 3.1 % Basophils (%) (Auto) 0.6 % Absolute Neutrophils (auto) 4.2 10^3/ul 1.5-7.7 Absolute Monocytes (auto) 0.5 10^3/ul 0-0.8 Absolute Lymphocytes (auto) 1.2 10^3/ul 1.0-4.8 Absolute Eosinophils (auto) 0.2 10^3/ul 0-0.6 Absolute Basophils (auto) 0 10^3/ul 0-0.2 Laboratory Studies 07/11/2018 [place] Import Lipase 16 U/L 11.0-82.0 C-Reactive Protein 5.52 mg/L 0-8.00 Lactic Acid Level 0.6 mmol/L 0.5-2.0 Nucleated Red Blood Cells % 0 Nucleated RBC Absolute Count (auto) 0 10^3/ul Neutrophils (%) (Auto) 68.6 % Monocytes (%) (Auto) 7.6 % Lymphocytes (%) (Auto) 20.1 % Eosinophils (%) (Auto) 3.1 % Basophils (%) (Auto) 0.6 % Absolute Neutrophils (auto) 4.2 10^3/ul 1.5-7.7 Absolute Monocytes (auto) 0.5 10^3/ul 0-0.8 Absolute Lymphocytes (auto) 1.2 10^3/ul 1.0-4.8 Absolute Eosinophils (auto) 0.2 10^3/ul 0-0.6 Absolute Basophils (auto) 0 10^3/ul 0-0.2 Laboratory Studies 07/11/2018 N2N/CCD Import Urine Specific 1.016 1.010- 1.030 [place] Laboratory Studies 07/11/2018 N2N/CCD Import Urine pH 8.0 5-9 Urine Specific [place] 1.016 1.010-1.030 Laboratory Studies 07/11/2018 N2N/CCD Import Absolute Basophils 0 10^3/ul 0-0.2 (auto) Laboratory Studies 07/11/2018 N2N/CCD Import Absolute 0.2 10^3/ul 0-0.6 Eosinophils (auto) Absolute Basophils (auto) 0 10^3/ul 0-0.2 Laboratory Studies 07/11/2018 N2N/CCD Import Absolute 1.2 10^3/ul 1.0- 4.8 Lymphocytes (auto) Absolute Eosinophils (auto) 0.2 10^3/ul 0-0.6 Absolute Basophils (auto) 0 10^3/ul 0-0.2 Laboratory Studies 07/11/2018 N2N/CCD Import Absolute Monocytes 0.5 10^3/ ul 0-0.8 (auto) Absolute Lymphocytes (auto) 1.2 10^3/ul 1.0-4.8 Absolute Eosinophils (auto) 0.2 10^3/ul 0-0.6 Absolute Basophils (auto) 0 10^3/ul 0-0.2 Laboratory Studies 07/11/2018 N2N/CCD Import Absolute 4.2 10^3/ul 1.5- 7.7 Neutrophils (auto) Absolute Monocytes (auto) 0.5 10^3/ul 0-0.8 Absolute Lymphocytes (auto) 1.2 10^3/ul 1.0-4.8 Absolute Eosinophils (auto) 0.2 10^3/ul 0-0.6 Absolute Basophils (auto) 0 10^3/ul 0-0.2 Laboratory Studies 07/11/2018 N2N/CCD Import Basophils (%) (Auto) 0.6 % Absolute Neutrophils (auto) 4.2 10^3/ul 1.5-7.7 Absolute Monocytes (auto) 0.5 10^3/ul 0-0.8 Absolute Lymphocytes (auto) 1.2 10^3/ul 1.0-4.8 Absolute Eosinophils (auto) 0.2 10^3/ul 0-0.6 Absolute Basophils (auto) 0 10^3/ul 0-0.2 Laboratory Studies 07/11/2018 N2N/CCD Import Eosinophils (%) (Auto) 3.1 % Basophils (%) (Auto) 0.6 % Absolute Neutrophils (auto) 4.2 10^3/ul 1.5-7.7 Absolute Monocytes (auto) 0.5 10^3/ul 0-0.8 Absolute Lymphocytes (auto) 1.2 10^3/ul 1.0-4.8 Absolute Eosinophils (auto) 0.2 10^3/ul 0-0.6 Absolute Basophils (auto) 0 10^3/ul 0-0.2 Laboratory Studies 07/11/2018 N2N/CCD Import Lymphocytes (%) (Auto) 20.1 % Eosinophils (%) (Auto) 3.1 % Basophils (%) (Auto) 0.6 % Absolute Neutrophils (auto) 4.2 10^3/ul 1.5-7.7 Absolute Monocytes (auto) 0.5 10^3/ul 0-0.8 Absolute Lymphocytes (auto) 1.2 10^3/ul 1.0-4.8 Absolute Eosinophils (auto) 0.2 10^3/ul 0-0.6 Absolute Basophils (auto) 0 10^3/ul 0-0.2 Laboratory Studies 07/11/2018 N2N/CCD Import Monocytes (%) (Auto) 7.6 % Lymphocytes (%) (Auto) 20.1 % Eosinophils (%) (Auto) 3.1 % Basophils (%) (Auto) 0.6 % Absolute Neutrophils (auto) 4.2 10^3/ul 1.5-7.7 Absolute Monocytes (auto) 0.5 10^3/ul 0-0.8 Absolute Lymphocytes (auto) 1.2 10^3/ul 1.0-4.8 Absolute Eosinophils (auto) 0.2 10^3/ul 0-0.6 Absolute Basophils (auto) 0 10^3/ul 0-0.2 Laboratory Studies 07/11/2018 N2N/CCD Import Neutrophils (%) (Auto) 68.6 % Monocytes (%) (Auto) 7.6 % Lymphocytes (%) (Auto) 20.1 % Eosinophils (%) (Auto) 3.1 % Basophils (%) (Auto) 0.6 % Absolute Neutrophils (auto) 4.2 10^3/ul 1.5-7.7 Absolute Monocytes (auto) 0.5 10^3/ul 0-0.8 Absolute Lymphocytes (auto) 1.2 10^3/ul 1.0-4.8 Absolute Eosinophils (auto) 0.2 10^3/ul 0-0.6 Absolute Basophils (auto) 0 10^3/ul 0-0.2 Laboratory Studies 07/11/2018 [facility]/[place] Import Nucleated RBC Absolute 0 10^3/ ul Count (auto) Neutrophils (%) (Auto) 68.6 % Monocytes (%) (Auto) 7.6 % Lymphocytes (%) (Auto) 20.1 % Eosinophils (%) (Auto) 3.1 % Basophils (%) (Auto) 0.6 % Absolute Neutrophils (auto) 4.2 10^3/ul 1.5-7.7 Absolute Monocytes (auto) 0.5 10^3/ul 0-0.8 Absolute Lymphocytes (auto) 1.2 10^3/ul 1.0-4.8 Absolute Eosinophils (auto) 0.2 10^3/ul 0-0.6 Absolute Basophils (auto) 0 10^3/ul 0-0.2 Laboratory Studies 07/11/2018 [facility]/[place] Import Nucleated Red Blood Cells % 0 Nucleated RBC Absolute Count (auto) 0 10^3/ul Neutrophils (%) (Auto) 68.6 % Monocytes (%) (Auto) 7.6 % Lymphocytes (%) (Auto) 20.1 % Eosinophils (%) (Auto) 3.1 % Basophils (%) (Auto) 0.6 % Absolute Neutrophils (auto) 4.2 10^3/ul 1.5-7.7 Absolute Monocytes (auto) 0.5 10^3/ul 0-0.8 Absolute Lymphocytes (auto) 1.2 10^3/ul 1.0-4.8 Absolute Eosinophils (auto) 0.2 10^3/ul 0-0.6 Absolute Basophils (auto) 0 10^3/ul 0-0.2 Laboratory Studies 07/11/2018 N2N/CCD Import Lactic Acid Level 0.6 mmol/L 0.5-2.0 Nucleated Red Blood Cells % 0 Nucleated RBC Absolute Count (auto) 0 10^3/ul Neutrophils (%) (Auto) 68.6 % Monocytes (%) (Auto) 7.6 % Lymphocytes (%) (Auto) 20.1 % Eosinophils (%) (Auto) 3.1 % Basophils (%) (Auto) 0.6 % Absolute Neutrophils (auto) 4.2 10^3/ul 1.5-7.7 Absolute Monocytes (auto) 0.5 10^3/ul 0-0.8 Absolute Lymphocytes (auto) 1.2 10^3/ul 1.0-4.8 Absolute Eosinophils (auto) 0.2 10^3/ul 0-0.6 Absolute Basophils (auto) 0 10^3/ul 0-0.2 Laboratory Studies 07/11/2018 N2N/CCD Import C-Reactive Protein 5.52 mg/L 0-8.00 Lactic Acid Level 0.6 mmol/L 0.5-2.0 Nucleated Red Blood Cells % 0 Nucleated RBC Absolute Count (auto) 0 10^3/ul Neutrophils (%) (Auto) 68.6 % Monocytes (%) (Auto) 7.6 % Lymphocytes (%) (Auto) 20.1 % Eosinophils (%) (Auto) 3.1 % Basophils (%) (Auto) 0.6 % Absolute Neutrophils (auto) 4.2 10^3/ul 1.5-7.7 Absolute Monocytes (auto) 0.5 10^3/ul 0-0.8 Absolute Lymphocytes (auto) 1.2 10^3/ul 1.0-4.8 Absolute Eosinophils (auto) 0.2 10^3/ul 0-0.6 Absolute Basophils (auto) 0 10^3/ul 0-0.2 Procedures Date Code Description Status 09/27/2018 01747 Interrogation Implant Cardiovasc Monitor System Incl Completed Analysis Int 09/27/2018 44828 Interrogation Implant Cardiovasc Monitor System Incl Completed Analysis Int 09/27/2018 82542 Icd eval w/iterative adjment single lead Icd Completed 09/27/2018 04734 Icd eval w/iterative adjment single lead Icd Completed 07/31/2018 38658 ECHO Transthoracic, Real-Time 2D With Doppler And Color Completed Flow 07/31/2018 39836 ECHO Transthoracic, Real-Time 2D With Doppler And Color Completed Flow 07/31/2018 05719 EKG Tracing & Interpretation Completed 07/18/2018 73909 Interrogation Implant Cardiovasc Monitor System Incl Completed Analysis Int 07/18/2018 72684 Interrogation Implant Cardiovasc Monitor System Incl Completed Analysis Int 07/18/2018 94917 Icd eval w/iterative adjment single lead Icd Completed 07/18/2018 69184 Icd eval w/iterative adjment single lead Icd Completed Medical Devices Description No Information Available Encounters Type Date Location Provider Dx Diagnosis Office Visit 10/10/2018 [facility] Jade Holcomb, 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 unspecified Z95.810 Presence of automatic (implantable) cardiac defibrillator I48.0 Paroxysmal atrial fibrillation I10 Essential (primary) hypertension I25.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[place] coronary artery w/o ang pctrs R60.0 Localized edema Office Visit 09/17/2018 8:15a [facility] Ariana Brownlee, R33.9 Retention of urine, DO unspecified G31.84 Mild cognitive impairment, so stated I48.2 Chronic atrial fibrillation S22.41xD Multiple fx of ribs, right side, subs for fx w routn heal Office Visit 08/19/2018 11:45a [facility] Ariana Brownlee, E11.8 Type 2 diabetes DO mellitus with unspecified complications I48.0 Paroxysmal atrial fibrillation I25.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[place] coronary artery w/o ang pctrs I42.9 Cardiomyopathy, unspecified Z95.810 Presence of automatic (implantable) cardiac defibrillator I10 Essential (primary) hypertension R53.1 Weakness Z79.4 nursing home (current) use of insulin I73.9 Peripheral vascular disease, unspecified R33.0 Drug induced retention of urine Office Visit 08/15/2018 11:13a [facility] G31.84 Mild cognitive Assoc,anushka Washington MD impairment, so Hospitalists stated R29.6 Repeated falls R53.1 Weakness Office Visit 08/14/2018 [facility] Rod S22.39xA Fracture of 11:13a anushka Colbert MD one rib, unsp Hospitalists side, init for clos fx R29.6 Repeated falls E11.9 Type 2 diabetes mellitus without complications I48.2 Chronic atrial fibrillation I25.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[place] coronary artery w/o ang pctrs F32.9 Major depressive disorder, single episode, unspecified E03.9 Hypothyroidism, unspecified Office Visit 08/13/2018 [facility] Rod S22.39xA Fracture of 11:13a anushka Colbert MD one rib, unsp Hospitalists side, init for clos fx R29.6 Repeated falls E11.9 Type 2 diabetes mellitus without complications I48.2 Chronic atrial fibrillation I25.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[place] coronary artery w/o [facility] pctrs E03.9 Hypothyroidism, unspecified F32.9 Major depressive disorder, single episode, unspecified Office Visit 08/12/2018 [facility] Rod S22.39xA Fracture of 11:12a anushka Colbert MD one rib, unsp Hospitalists side, init for clos fx R29.6 Repeated falls I48.0 Paroxysmal atrial fibrillation I25.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[place] coronary artery w/o [facility] pctrs E11.9 Type 2 diabetes mellitus without complications Office Visit 07/18/2018 Chikis Castro I42.9 Cardiomyopathy, 9:30a [facility] unspecified [employer] Z95.810 Presence of automatic (implantable) cardiac defibrillator I48.0 Paroxysmal atrial fibrillation I25.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[place] coronary artery w/o ang pctrs Assessments Date Code Description Provider 12/24/2018 F32.9 Major depressive disorder, single JESSY Arambula episode, unspecified 12/22/2018 N39.0 Urinary tract infection, site not Abril Adhikari D.O. specified 12/22/2018 L89.622 Pressure ulcer of left heel, stage 2 Abril Adhikari D.O. 12/22/2018 E11.8 Type 2 diabetes mellitus with Abril Adhikari D.O. unspecified complications 12/22/2018 I48.0 Paroxysmal atrial fibrillation Abril Adhikari D.O. 12/22/2018 I25.10 Atherosclerotic heart disease of Royer Encarnacion.O. [place] coronary artery with 12/22/2018 I10 Essential (primary) hypertension Royer Encarnacion.O. 12/17/2018 L89.622 Pressure ulcer of left heel, stage 2 Mellissa Astudillo Dahlia, AUDIT OFFICER 12/17/2018 E11.8 Type 2 diabetes mellitus with Mellissa Astudillo Villagomez, AUDIT OFFICER unspecified complications 10/21/2018 L89.622 Pressure ulcer of left heel, stage 2 Abril Adhikari D.O. 10/21/2018 I42.9 Cardiomyopathy, unspecified Abril Adhikari, D.O. 10/21/2018 I48.0 Paroxysmal atrial fibrillation Royer Encarnacion.O. 10/21/2018 I25.10 Atherosclerotic heart disease of Royer Encarnacion.O. [place] coronary artery with 10/21/2018 I10 Essential (primary) hypertension Royer Encarnacion.O. 10/21/2018 E11.8 Type 2 diabetes mellitus with Royer Encarnacion.O. unspecified complications 10/10/2018 L98.491 Non-pressure ulcer of skin of other [place] sites limited to breakd 09/27/2018 I42.9 Cardiomyopathy, unspecified Johanny Barba M.D. 09/27/2018 I42.9 Cardiomyopathy, unspecified Nathalia Cuadra, N.P. 09/27/2018 I42.9 Cardiomyopathy, unspecified [facility] Pacer Schedule 09/27/2018 Z95.810 Presence of automatic (implantable) Johanny Barba M.D. cardiac defibrillator 09/27/2018 Z95.810 Presence of automatic (implantable) Nathalia Cuadra, N.P. cardiac defibrillator 09/27/2018 Z95.810 Presence of automatic (implantable) Ica Pacer Schedule cardiac defibrillator 09/27/2018 I48.0 Paroxysmal atrial fibrillation Nathalia Cuadra, N.P. 09/27/2018 I10 Essential (primary) hypertension Nathalia Cuadra, N.P. 09/27/2018 I25.10 Atherosclerotic heart disease of Nathalia Cuadra, N.P. [place] coronary artery with 09/27/2018 R60.0 Localized edema Nathalia Cuadra, N.P. 09/17/2018 R33.9 Retention of urine, unspecified Ariana Brownlee, DO 09/17/2018 G31.84 Mild cognitive impairment, so stated Ariana Brownlee, DO 09/17/2018 I48.2 Chronic atrial fibrillation Ariana Brownlee, DO 09/17/2018 S22.41xD Multiple fractures of ribs, right Arianagaurav Brownlee, DO side, subsequent encounter 08/19/2018 E11.8 Type 2 diabetes mellitus with Ariana Brownlee, DO unspecified complications 08/19/2018 I48.0 Paroxysmal atrial fibrillation Arianachris Brownlee, DO 08/19/2018 I25.10 Atherosclerotic heart disease of Arianachris Brownlee, DO [place] coronary artery with 08/19/2018 I42.9 Cardiomyopathy, unspecified Ariana Brownlee, DO 08/19/2018 Z95.810 Presence of automatic (implantable) Arianachris Brownlee, cardiac defibrillator 08/19/2018 I10 Essential (primary) hypertension Arianachris Brownlee, 08/19/2018 R53.1 Weakness Ariana Brownlee, 08/19/2018 Z79.4 nursing home (current) use of insulin Arianachris Brownlee, 08/19/2018 I73.9 Peripheral vascular disease, Arianachris Brownlee, unspecified 08/19/2018 R33.0 Drug induced retention of urine Ariana Brownlee, 08/15/2018 G31.84 Mild cognitive impairment, so stated Oly Washington MD 08/15/2018 R29.6 Repeated falls Oly Washington MD 08/15/2018 R53.1 Weakness Oly Washington MD 08/14/2018 S22.39xA Fracture of one rib, unsp side, init Tomas Mar MD for clos fx 08/14/2018 R29.6 Repeated falls Tomas Mar MD 08/14/2018 E11.9 Type 2 diabetes mellitus without Tomas Mar MD complications 08/14/2018 I48.2 Chronic atrial fibrillation Tomas Mar MD 08/14/2018 I25.10 Atherosclerotic heart disease of Tomas Mar MD [place] coronary artery with 08/14/2018 F32.9 Major depressive disorder, single Tomas Mar MD episode, unspecified 08/14/2018 E03.9 Hypothyroidism, unspecified Tomas Mar MD 08/13/2018 S22.39xA Fracture of one rib, unsp side, init Tomas Mar MD for clos fx 08/13/2018 R29.6 Repeated falls Tomas Mar MD 08/13/2018 E11.9 Type 2 diabetes mellitus without Tomas Mar MD complications 08/13/2018 I48.2 Chronic atrial fibrillation Tomas Mar MD 08/13/2018 I25.10 Atherosclerotic heart disease of Tomas Mar MD [place] coronary artery with 08/13/2018 E03.9 Hypothyroidism, unspecified Tomas Mar MD 08/13/2018 F32.9 Major depressive disorder, single Tomas Mar MD episode, unspecified 08/12/2018 S22.39xA Fracture of one rib, unsp side, init Tomas Mar MD for clos fx 08/12/2018 R29.6 Repeated falls Tomas Mar MD 08/12/2018 I48.0 Paroxysmal atrial fibrillation Tomas Mar MD 08/12/2018 I25.10 Atherosclerotic heart disease of Tomas Mar MD [place] coronary artery with 08/12/2018 E11.9 Type 2 diabetes mellitus without Tomas Mar MD complications 07/31/2018 I48.0 Paroxysmal atrial fibrillation Johanny Barba M.D. 07/31/2018 I48.0 Paroxysmal atrial fibrillation Nurse Visit IC 07/31/2018 I25.10 Atherosclerotic heart disease of Nurse Visit IC [place] coronary artery with 07/31/2018 R94.31 Abnormal electrocardiogram [ECG] Nurse Visit IC [EKG] 07/31/2018 I48.0 Paroxysmal atrial fibrillation [facility] ECHO Schedule 07/18/2018 Z95.810 Presence of automatic (implantable) Johanny Barba M.D. cardiac defibrillator 07/18/2018 I42.9 Cardiomyopathy, unspecified Nathalia Cuadra N.PElmer 07/18/2018 Z95.810 Presence of automatic (implantable) Ica Pacer Schedule cardiac defibrillator 07/18/2018 I42.9 Cardiomyopathy, unspecified Johanny Barba M.D. 07/18/2018 Z95.810 Presence of automatic (implantable) Nathalia Cuadra N.P. cardiac defibrillator 07/18/2018 I42.9 Cardiomyopathy, unspecified Ica Pacer Schedule 07/18/2018 I48.0 Paroxysmal atrial fibrillation Nathalia Cuadra N.P. 07/18/2018 I49.01 Ventricular fibrillation Ica Pacer Schedule 07/18/2018 I25.10 Atherosclerotic heart disease of Nathalia Cuadra N.P. [place] coronary artery with Plan of Treatment Future Appointment(s):01/02/2019 2:00 pm - Ica Pacer Schedule at [facility]12/22/2018 - Abril Adhikari D.O.N39.0 Urinary tract infection , site not [id number] Pressure ulcer of left heel, stage 2E11.8 Type 2 diabetes mellitus with unspecified mjivmlrjfbzteE63.0 Paroxysmal atrial gudyilxsfkvsT75.10 Atherosclerotic heart disease of [place] coronary artery withI10 Essential (primary) hypertension Functional Status Description No Information Available Mental Status Description No Information Available Referrals Description No Information Available
--- NOTE | 2019-01-11 03:46 | ED ---
GI/ HPI - HPI Summary HPI Summary: This pt is a 78 Y/O F presenting to [facility] with a CC of a meléndez catheter falling out [employer]. She states that she needs the catheter put back in. She denies any pain or fevers, chills, N/V, SOB, CP, headaches, and diaphoresis. She has no alleviating factors. She has a PMHx of CAD, a pacemaker, GERD, urinary dilation , and DM. - History of Current Complaint Stated Complaint: CATH ISSUE PER EMS Hx Obtained From: Patient Hx Last Menstrual Period: N/A Onset/Duration: Started Hours Ago Timing: Constant Current Severity: None Pain Intensity: 0 Associated Signs and Symptoms: Negative: Nausea, Vomiting, Diaphoresis, Fever, Chills, Abdominal Pain - Additional Pertinent History Primary Care Physician: SID - Allergy/Home Medications Allergies/Adverse Reactions: Allergies Allergy/AdvReac Type Severity Reaction Status Date / Time rivaroxaban [From Xarelto] Allergy Bleeding Verified 08/03/18 10:53 PMH/Surg Hx/FS Hx/Imm Hx Previously Healthy: Yes Endocrine/Hematology History: Reports: Hx Anticoagulant Therapy - arixtra and plavix , Hx Diabetes Denies: Hx Thyroid Disease Cardiovascular History: Reports: Hx Angina, Hx Auto Implanted Cardiovert Defib, Hx Cardiac Arrest, Hx Coronary Artery Disease, Hx Deep Vein Thrombosis, Hx Hypercholesterolemia, Hx Hypertension, Hx Pacemaker/ICD - 2005, Hx Peripheral Vascular Disease, Other Cardiovascular Problems/Disorders - VT with VF ICD going off Denies: Hx Congestive Heart Failure Respiratory History: Denies: Other Respiratory Problems/Disorders GI History: Reports: Hx Gastrointestinal Bleed History: Reports: Hx Kidney Stones - IN THE PAST, Other Problems/ Disorders - recurrent UTI's, urethral dilation 03/2018 Denies: Hx Renal Disease Musculoskeletal History: Reports: Hx Arthritis Sensory History: Reports: Hx Cataracts, Hx Contacts or Glasses, Hx Hearing Problem - Bilateral hearing loss Denies: Hx Hearing Aid Opthamlomology History: Reports: Hx Cataracts, Hx Contacts or Glasses Neurological History: Denies: Hx Dementia, Hx Developmental Delay, Hx Headaches Psychiatric History: Reports: Hx Anxiety, Hx Depression - Cancer History Hx Chemotherapy: No Hx Radiation Therapy: No - Surgical History Surgery Procedure, Year, and Place: pacer/defib;. cabg;. right leg bypass aorto-fem;. c section;. 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; hx sepsis Denies: Traveled Outside the [place] in Last 30 Days - Family History Known Family History: Positive: Cardiac Disease, Diabetes, Other - High cholesterol - Social History Alcohol Use: None Hx Substance Use: No Substance Use Type: Reports: None Hx Tobacco Use: Yes Smoking Status (MU): Former Smoker Type: Cigarettes Amount Used/How Often: 1-2 PPD Length of Time of Smoking/Using Tobacco: 39 YEARS Have You Smoked in the Last Year: No Review of Systems Negative: Fever, Chills Negative: Chest Pain Negative: Shortness Of Breath Negative: Abdominal Pain, Vomiting, Nausea Genitourinary: Other - Pt states that her catheter fell out Negative: Headache All Other Systems Reviewed And Are Negative: Yes Physical Exam - Summary Physical Exam Summary: Appearance: Well-appearing, Well-nourished, lying in bed comfortably Skin: Warm, dry, no obvious rash Eyes: sclera anicteric, no conjunctival pallor ENT: mucous membranes moist, pharynx appears normal Neck: Supple, nontender Respiratory: Clear to auscultation, no signs of respiratory distress Cardiovascular: Normal S1, S2. No murmurs. Normal distal pulses in tibial and radial bilaterally. Abdomen: Soft, nontender, normal active bowel sounds present Musculoskeletal: Normal, Strength/ROM Intact Neurological: A&Ox3, awake and alert, mentation is normal, speech is fluent and appropriate Psychiatric: affect is normal, does not appear anxious or depressed Triage Information Reviewed: Yes Vital Signs On Initial Exam: Initial Vitals Temp Pulse Resp BP Pulse Ox 99.2 F 86 20 118/56 94 01/11/19 03:31 01/11/19 03:31 01/11/19 03:31 01/11/19 03:31 01/11/19 03:31 Vital Signs Reviewed: Yes Diagnostics - Vital Signs Vital Signs Temp Pulse Resp BP Pulse Ox 01/11/19 03:31 99.2 F 86 20 118/56 94 - Laboratory Lab Statement: Any lab studies that have been ordered have been reviewed, and results considered in the medical decision making process. GIGU Course/Dx - Course Course Of Treatment: This pt is a 78 Y/O F presenting to [facility] with a CC of a melnédez catheter falling out [employer]. She states that she needs the catheter put back in. She denies any pain or fevers, chills, N/V, SOB, CP, headaches, and diaphoresis. She has no concerning findings on her PE. Her catheter was placed back in and she was discharged with a Dx of urinary catheter replacement. - Diagnoses Provider Diagnoses: Urinary catheter insertion/adjustment/removal Discharge ED - Sign-Out/Discharge Documenting (check all that apply): Patient Departure - discharge Patient Received Moderate/Deep Sedation with Procedure: No - Discharge Plan Condition: Good Disposition: HOME Patient Education Materials: Meléndez Catheter Placement and Care (ED) Referrals: Daryl Ashford MD [Primary Care Provider] - - Billing Disposition and Condition Condition: GOOD Disposition: Home - Attestation Statements Document Initiated by Oli: Yes Documenting Scribe: Bret Kovacs Provider For Whom Oli is Documenting (Include Credential): Tommie Hernandez MD Scribe Attestation: Bret Moise scribed for Tommie Hernandez MD on 01/11/19 at 1844. Scribe Documentation Reviewed: Yes Provider Attestation: The documentation as recorded by the Bret kim accurately reflects the service I personally performed and the decisions made by me, Tommie Hernandez MD Status of Scribe Document: Viewed
[2019-01-11 04:24] VITALS: BP 112/53
[2019-01-11 04:36] LABS: Urine Appearance Cloudy; Urine Bacteria Absent (Absent); Urine Bilirubin Negative (Negative); Urine Blood 2+ (Negative); Urine Color Yellow; Urine Glucose Negative (Negative); Urine Ketones Negative (Negative); Urine Nitrite Negative (Negative); Urine Protein Negative (Negative); Urine Red Blood Cell 3+(>10/hpf) (Absent); Urine Specific Gravity 1.017 (1.010-1.030); Urine Urobilinogen Negative (Negative); Urine White Blood Cell Trace(0-5/hpf) (Absent)
== END 2019-01-11 04:21 | disposition home or self-care (01) ==
LOC: ED 03:23
DX: Z46.6 Encounter for fitting and adjustment of urinary device (principal); E11.9 Type 2 diabetes mellitus without complications; I25.10 Atherosclerotic heart disease of native coronary artery without angina pectoris; K21.9 Gastro-esophageal reflux disease without esophagitis; E78.00 Pure hypercholesterolemia, unspecified; I10 Essential (primary) hypertension; F41.9 Anxiety disorder, unspecified; F32.9 Major depressive disorder, single episode, unspecified; Z87.891 Personal history of nicotine dependence; Z95.0 Presence of cardiac pacemaker; Z90.49 Acquired absence of other specified parts of digestive tract; Z79.01 Long term (current) use of anticoagulants; Z79.4 Long term (current) use of insulin; Z79.899 Other long term (current) drug therapy; Z88.8 Allergy status to other drugs, medicaments and biological substances
CPT/HCPCS: 51702; 81003; 81015; 87086; 99282

== ENCOUNTER 2019-01-31 01:57 | Emergency (ER) | payer MEDICARE, BC ==
[2019-01-31] MEDS ORDERED: LORazepam TAB(*) 1 MG PO ONE (02:11)
--- NOTE | 2019-01-31 02:15 | ED ---
Abdominal Pain/Female - HPI Summary HPI Summary: Pt is a 78 y/o F presenting to the ED for a chief complaint of right-sided abdominal pain. Pt has not had a bowel movement for 3 days and thinks shes constipated. Pt typically has a bowel movement every 1-2 days. Pt admits SOB and anxiety at the present time. Pt states she has SOB when she has anxiety. Pt denies nausea, vomiting, fever, or chills. Pts states her urinary catheter was kinked earlier. Pt has had a catheter for 5-6 months for difficulty with urination. Pt states she has a memory problem. Pt uses hearing aids. Pt cried in the room. 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 Negative: Fever, Nausea, Vomiting Allergies/Adverse Reactions: Allergies Allergy/AdvReac Type Severity Reaction Status Date / Time rivaroxaban [From Xarelto] Allergy Bleeding Verified 08/03/18 10:53 PMH/Surg Hx/FS Hx/Imm Hx Previously Healthy: Yes Endocrine/Hematology History: Reports: Hx Anticoagulant Therapy - arixtra and plavix , Hx Diabetes Denies: Hx Thyroid Disease Cardiovascular History: Reports: Hx Angina, Hx Auto Implanted Cardiovert Defib, Hx Cardiac Arrest, Hx Coronary Artery Disease, Hx Deep Vein Thrombosis, Hx Hypercholesterolemia, Hx Hypertension, Hx Pacemaker/ICD - 2005, Hx Peripheral Vascular Disease, Other Cardiovascular Problems/Disorders - VT with VF ICD going off Denies: Hx Congestive Heart Failure Respiratory History: Denies: Other Respiratory Problems/Disorders GI History: Reports: Hx Gastrointestinal Bleed History: Reports: Hx Kidney Stones - IN THE PAST, Other Problems/ Disorders - recurrent UTI's, urethral dilation 03/2018 Denies: Hx Renal Disease Musculoskeletal History: Reports: Hx Arthritis Sensory History: Reports: Hx Cataracts, Hx Contacts or Glasses, Hx Hearing Problem - Bilateral hearing loss Denies: Hx Hearing Aid Opthamlomology History: Reports: Hx Cataracts, Hx Contacts or Glasses Neurological History: Denies: Hx Dementia, Hx Developmental Delay, Hx Headaches Psychiatric History: Reports: Hx Anxiety, Hx Depression - Cancer History Hx Chemotherapy: No Hx Radiation Therapy: No - Surgical History Surgical History: Yes Surgery Procedure, Year, and Place: pacer/defib;. cabg;. right leg bypass aorto-fem;. c section;. 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 Negative: Vomiting, Diarrhea, Nausea Positive: other - Difficulty urinating Neurological: Other - Positive memory problems Positive: Anxious All Other Systems Reviewed And Are Negative: Yes Physical Exam - Summary Physical Exam Summary: Constitutional: Well-developed, Well-nourished, Alert. Tearful, Anxious. Skin: Warm, Dry HENT: Normocephalic; Atraumatic Eyes: Conjunctiva normal Neck: Musculoskeletal ROM normal neck. (-) JVD, (-) Stridor, (-) Nuchal rigidity Cardio: Rhythm regular, rate normal, Heart sounds normal; Intact distal pulses; Radial pulses are 2+ and symmetric. (-) Murmur Pulmonary/Chest wall: Effort normal. (-) Respiratory distress, (-) Wheezes, (-) Rales Abd: Soft, mild lower quadrant tenderness, (-) Distension, (-) Guarding, (-) Rebound. No R inguinal tenderness or masses noted. Musculoskeletal: (-) Edema Lymph: (-) Cervical adenopathy Neuro: Alert, Oriented x3 Psych: Mood and affect Normal : Positive catheter Triage Information Reviewed: Yes Vital Signs On Initial Exam: Initial Vitals Temp Pulse Resp BP Pulse Ox 98.3 F 65 16 140/80 99 01/31/19 01:58 01/31/19 01:58 01/31/19 01:58 01/31/19 01:58 01/31/19 01:58 Vital Signs Reviewed: Yes Procedures - Sedation Patient Received Moderate/Deep Sedation with Procedure: No Diagnostics - Vital Signs Vital Signs Temp Pulse Resp BP Pulse Ox 01/31/19 01:58 98.3 F 65 16 140/80 99 - Laboratory Result Diagrams: 01/31/19 02:16 01/31/19 04:50 Lab Statement: Any lab studies that have been ordered have been reviewed, and results considered in the medical decision making process. - Radiology Chest X-ray Radiology Interpretation Completed By: Radiologist Summary of Radiographic Findings: Chest X-ray IMPRESSION: No acute process, no change from prior. Reviewed and interpreted by ED physician; pending official radiology report. - CT Abdomen/Pelvis CT CT Interpretation Completed By: Radiologist Summary of CT Findings: Abdomen/Pelvis CT IMPRESSION: 1.No acute findings. The appendix is not visualized. No secondary signs of acute appendicitis. Consider repeating the CT scan of the abdomen and pelvis after the contrast reaches the right side of the colon. 2. Colonic diverticulosis. No evidence of acute diverticulitis. No bowel. obstruction. No abnormal bowel wall thickening. 3. No evidence of hydronephrosis or nephrolithiasis. No hydroureter. 4. Lesion located in the right inguinal region. This has a low density center with an irregularly enhancing rim. This was seen on the prior CT scan of 12/13/2018 and does not appear to have significantly changed. If the patient has point tenderness over this area consider ultrasound guided needle aspiration. Reviewed by ED physician. - EKG 04:34 Cardiac Rate: NL - 69 BPM EKG Rhythm: Sinus Rhythm ST Segment: Normal Ectopy: None EKG Comparison: No Significant Change Summary of EKG Findings: EKG at 04:34, 69 BPM with normal sinus rhythm, LBBB seen on prior EKG on 05/26/16, no significant changes. Reviewed and interpreted by ED physician. Re-Evaluation - Re-Evaluation First Eval Re-Evaluation Time: 05:07 Change: Improved - CT unable to visualize appendix. No WBC, fever. Abdomen soft. Lower suspicion for appendicitis. Has ring enhancing lesion seen prior on CT in nov. Comment: At 05:07, pt is feeling better. 2nd re-eval Re-Evaluation Time: 06:54 Change: Unchanged Comment: At 06:54, pt has not yet had a bowel movement after being given an enema. 3rd re-eval Re-Evaluation Time: 07:06 Change: Improved Comment: At 07:06, pt had a bowel movement, feeling better. Pt will be discharged with a diagnosis of abdominal pain and constipation. d/w results of CT including lesion on R inguinal area and inability to see appendix. Will return for worsening symptoms Abdominal Pain Fem Course/Dx - Course Course Of Treatment: 78 y/o F w hx dementia, chronic indwelling meléndez p/w abdominal pain mostly in RLQ, constipation. - Abd w mild diffuse tenderness in lower quadrants, tearful. Easy WOB on RA, CXR neg for acute process. Patient very anxious and tearful which happens when she gets overwhelmed. Given ativan [address] A/P given abdominal pain. - Diagnoses Provider Diagnoses: Abdominal pain, Constipation Discharge ED - Sign-Out/Discharge Documenting (check all that apply): Patient Departure - Discharge - Discharge Plan Condition: Stable Disposition: HOME Patient Education Materials: Constipation (DC), Acute Abdominal Pain (ED) Referrals: Daryl Ashford MD [Primary Care Provider] - Additional Instructions: You were seen in the emergency department for abdominal pain. Your CT scan was unable to visualize your appendix. It also showed a small lesion on your right side which was previously seen on your CT scan in November. If you have right lower sided abdominal pain, fevers, vomiting, inability to drink please return to emergency department. If any studies were not completed at the time of discharge you will be called with the relevant results. Please follow up with your primary care doctor in next 2-3 days and return to emergency department for worsening pain or concerning symptoms. It was a pleasure taking care of you today. - Billing Disposition and Condition Condition: STABLE Disposition: Home - Attestation Statements Document Initiated by Scribe: Yes Documenting Scribe: Melissa Soria Provider For Whom Oli is Documenting (Include Credential): Kina Kline MD Scribe Attestation: IMelissa, scribed for Kina Kline MD on 01/31/19 at 0711. Scribe Documentation Reviewed: Yes Provider Attestation: The documentation as recorded by the Melissa kim accurately reflects the service I personally performed and the decisions made by , Kina Kline MD Status of Scribe Document: Viewed
[2019-01-31 02:23] LABS: ABS Monocytes 0.3 10^3/ul (0-0.8); ABS Neutrophils 7.5 10^3/ul (1.5-7.7); Hematocrit 41 % (35-47); Hemoglobin 13.3 g/dL (12.0-16.0); Lymphocyte % 11.3 %; Mean Corpuscular HGB Conc 32 g/dL (31-36); Mean Corpuscular Hemoglobin 28 pg (27-31); Mean Corpuscular Volume 86 fL (80-97); Platelet Count 170 10^3/uL (150-450); Red Blood Count 4.77 10^6 /uL (3.70-4.87); Red Cell Distribution Width 16 % (10-15); White Blood Count 8.8 10^3/uL (3.5-10.8)
[2019-01-31 02:40] LABS: ALT 32 U/L (7-52); Albumin 3.3 g/dL (3.2-5.2); Albumin/Globulin Ratio 0.9 (1-3); Alkaline Phosphatase 117 U/L (34-104); BUN/Creatinine Ratio 35.1 (8-20); Blood Urea Nitrogen 27 mg/dL (6-24); CO2 Carbon Dioxide 30 mmol/L (22-32); Calcium 9.7 mg/dL (8.6-10.3); Chloride 95 mmol/L (101-111); EGFR Non-African American 72.7 (>60); Globulin 3.8 g/dL (2-4); Glucose 398 mg/dL (70-100); Sodium 131 mmol/L (135-145); Total Protein 7.1 g/dL (6.4-8.9)
[2019-01-31 02:43] LABS: Anion Gap 6 mmol/L (2-11)
[2019-01-31 03:41] LABS: Urine Appearance Turbid; Urine Bacteria Absent (Absent); Urine Bilirubin Negative (Negative); Urine Blood Negative (Negative); Urine Color Yellow; Urine Glucose 3+(>=500 mg/dL) (Negative); Urine Ketones Negative (Negative); Urine Nitrite Negative (Negative); Urine Protein Negative (Negative); Urine Red Blood Cell Absent (Absent); Urine Specific Gravity 1.018 (1.010-1.030); Urine Urobilinogen Negative (Negative); Urine White Blood Cell 2+(11-20/hpf) (Absent)
[2019-01-31] MEDS ORDERED: Iodixanol* (CONTRAST) 320 MG/ML 100 ML SDV IV ONE (03:53)
[2019-01-31 04:23] LABS: Albumin 3.5 g/dL (3.2-5.2); CO2 Carbon Dioxide 27 mmol/L (22-32); Calcium 9.8 mg/dL (8.6-10.3); Chloride 94 mmol/L (101-111); Sodium 130 mmol/L (135-145)
[2019-01-31 04:29] LABS: ALT 36 U/L (7-52); Albumin/Globulin Ratio 0.9 (1-3); Alkaline Phosphatase 120 U/L (34-104); BUN/Creatinine Ratio 35.6 (8-20); Blood Urea Nitrogen 26 mg/dL (6-24); EGFR African American 93.5 (>60); EGFR Non-African American 77.3 (>60); Globulin 3.9 g/dL (2-4); Glucose 372 mg/dL (70-100); Total Protein 7.4 g/dL (6.4-8.9)
[2019-01-31 04:35] LABS: Anion Gap 9 mmol/L (2-11)
[2019-01-31] MEDS ORDERED: Mineral Oil ENEMA* 1 BOTTLE PR ONE (05:12)
[2019-01-31 05:51] LABS: Potassium Redraw 4.8 mmol/L (3.5-5.0)
[2019-01-31 07:29] VITALS: BP 118/56
--- NOTE | 2019-02-03 11:32 | ED ---
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 seen for abd. pain. Urine culture positive. I called and spoke with pt. today at 1125 and informed her of results. Based on culture will tx with cipro. Provider Diagnoses: Abdominal pain, Constipation
== END 2019-01-31 07:15 | disposition home or self-care (01) ==
LOC: ED 01:57
DX: K59.00 Constipation, unspecified (principal); K57.30 Diverticulosis of large intestine without perforation or abscess without bleeding; E11.9 Type 2 diabetes mellitus without complications; I25.10 Atherosclerotic heart disease of native coronary artery without angina pectoris; I10 Essential (primary) hypertension; E78.00 Pure hypercholesterolemia, unspecified; F41.9 Anxiety disorder, unspecified; F32.9 Major depressive disorder, single episode, unspecified; Z95.810 Presence of automatic (implantable) cardiac defibrillator; Z87.442 Personal history of urinary calculi; Z90.49 Acquired absence of other specified parts of digestive tract; Z87.891 Personal history of nicotine dependence; Z86.74 Personal history of sudden cardiac arrest; Z86.718 Personal history of other venous thrombosis and embolism; Z79.01 Long term (current) use of anticoagulants; Z79.4 Long term (current) use of insulin; Z79.82 Long term (current) use of aspirin; Z79.899 Other long term (current) drug therapy; Z79.890 Hormone replacement therapy; Z88.8 Allergy status to other drugs, medicaments and biological substances
CPT/HCPCS: 36415; 71045; 74177; 80053; 81003; 81015; 83605; 83690; 85025; 87077; 87086; 87186; 93005; 99282; A9270-GY; Q9967

== ENCOUNTER 2019-03-13 17:53 | Inpatient (IN) | payer MEDICARE, BC ==
--- OUTSIDE RECORDS SUMMARY | 2019-03-13 18:06 | XMS REPORT ---
:1940 Author Organization [facility] Care Team Providers Name Role Phone Unavailable Unavailable Unavailable Problems Condition Condition Condition Status Onset Resolution Last Treating Comments Name Details Category Date Date Treatment Clinician Date Pain frequent Pain Mgmt Resolve 2018-042019-01-24 Denise pain d 0-02 10:00:00 [place] 10:10: [id number] Cardio pacemaker/I Cardiovasc Resolve 2018-042019-02-03 Denise CD ular d 0-02 10:36:00 [place] 10:10: [id number] 00 Respiratory dyspnea Respirator Resolve 2018-042019-02-05 Denise present y d 0-02 12:24:00 [place] 10:10: [id number] 00 Endo/Lorenzo anti-coagul Endo/Lorenzo Resolve 2018-042019-02-07 Denise ation d 0-02 10:05:00 [place] therapy 10:10: [id number] 00 Endo/Lorenzo diabetic Endo/Lorenzo Resolve 2018-042019-01-24 Denise foot care d 0-02 10:00:00 [place] 10:10: [id number] 00 Sensory impaired Sensory Resolve 2018-042019-02-12 Denise hearing d 0-02 10:03:00 [place] 10:10: [id number] 00 Integument pressure Integument Active 2018-04 Denise ulcer 0-02 [place] present 10:10: [id number] 00 Integument skin Integument Resolve 2018-042019-03-11 Denise integrity d 0-02 11:38:00 [place] risk 10:10: [id number] 00 Integument knowledge/s Integument Active 2018-04 Denise kill 002 [place] deficit: pt 10:10: [id number] 00 Integument knowledge/s Integument Active 2018-04 Denise kill 0-02 [place] deficit: cg 10:10: [id number] 00 Nutrition nutritional Nutrition Resolve 2018-042019-02-05 Denise restriction d 0-02 12:24:00 [place] s 10:10: [id number] 00 Elimination catheter Eliminatio Resolve 2018-042019-01-31 Denise present n d 0-02 09:34:00 [place] 10:10: [id number] 00 Neuro confusion Neuro/Emot Resolve 2018-042019-02-12 Denise present ion d 0-02 10:03:00 [place] 10:10: [id number] 00 Neuro impaired Neuro/Emot Resolve 2018-042019-02-12 Denise decision-ma ion d 0-02 10:03:00 [place] shawn 10:10: [id number] 00 Neuro memory Neuro/Emot Resolve 2018-042019-02-12 Denise deficit ion d 0-02 10:03:00 [place] needing 10:10: [id number] supervision 00 Activity ADL Activity Resolve 2018-042019-02-07 Denise assistance d 0-02 10:05:00 [place] required 10:10: [id number] 00 Activity self-care Activity Resolve 2018-042019-02-07 Denise deficit d 0-02 10:05:00 [place] 10:10: [id number] 00 Activity knowledge/s Activity Resolve 2018-042019-02-07 Denise kill d 0-02 10:05:00 [place] deficit: pt 10:10: [id number] 00 Activity knowledge/s Activity Resolve 2018-042019-02-07 Denise kill d 0-02 10:05:00 [place] deficit: cg 10:10: [id number] 00 Safety structural Safety Resolve 2018-042019-02-07 Denise barriers d 0-02 10:05:00 [place] present 10:10: [id number] 00 Safety cannot be Safety Resolve 2018-042019-02-07 Denise left alone d 0-02 10:05:00 [place] 10:10: [id number] 00 Safety fall risk Safety Resolve 2018-042019-02-07 Denise factor d 0-02 10:05:00 [place] present 10:10: [id number] 00 Safety risk for Safety Resolve 2018-042019-02-07 Denise hospitaliza d 0-02 10:05:00 [place] tion 10:10: [id number] 00 Medication oral med Meds Resolve 2018-042019-02-12 Denise assistance d 0-02 10:03:00 [place] required 10:10: [id number] 00 Medication injectable Meds Resolve 2018-042019-02-12 Denise med d 0-02 10:03:00 [place] assistance 10:10: [id number] required 00 Medication knowledge/s Meds Resolve 2018-042019-02-14 Denise kill d 0-02 10:00:00 [place] deficit: pt 10:10: [id number] 00 Musculoskel transfer Musculoske Resolve 2018-042019-02-05 Denise etal assistance letal d 0-02 12:24:00 Angela required 10:10: [id number] 00 Musculoskel requires Musculoske Resolve 2018-042019-02-05 Denise etal human letal d 0-02 12:24:00 [place] assist to 10:10: [id number] leave home 00 Endo/Lorenzo glucose Endo/Lorenzo Resolve 2018-042019-02-12 Yojana testing d 0-04 10:03:00 [place] dependence 10:00: 00 Neuro anxiety Neuro/Emot Resolve 2018-042019-02-12 Yojana present ion d 0-04 10:03:00 [place] 10:00: 00 Safety can be left Safety Resolve 2018-042019-02-07 Yojana alone for d 0-04 10:05:00 [place] only short 10:00: periods 00 Medication potential Meds Resolve 2018-042019-02-14 Yojana clinically d 0-04 10:00:00 [place] significant 10:00: medication 00 issue Cardio edema Cardiovasc Resolve 2018-042019-02-07 Amy ular d 0-07 10:05:00 [place] 09:58: RN 00 Cardio knowledge/s Cardiovasc Resolve 2018-042019-02-03 Amy kill ular d 0-07 10:36:00 [place] deficit: cg 09:58: RN 00 Endo/Lorenzo glucose Endo/Lorenzo Resolve 2018-042019-02-12 Amy tolerance d 0-07 10:03:00 [place] problem 09:58: RN 00 Cardio knowledge/s Cardiovasc Unknown 2018-04 Magalis kill ular 0-10 López deficit: cg 13:30: [id number] 00 OT: Self self-care OT: Active 2018-04 Magalis Care deficit Self-Care 0-10 López 13:30: [id number] 00 Respiratory Incentive Respirator Resolve 2018-042019-02-03 Amy Spirometer y d 0-14 10:36:00 [place] /Acapella 10:36: RN Device 00 treatments in home Elimination catheter Eliminatio Resolve 2018-042019-02-07 Amy present n d 0-14 10:05:00 [place] 10:36: RN 00 Respiratory Incentive Respirator Resolve 2018-042019-02-20 Hernandez Spirometer y d 0-15 08:50:00 Mishra /Acapella 15:40: [id number] Device 00 treatments in home Safety fire risk Safety Resolve 2018-042019-02-07 Amy present d 0-17 10:05:00 [place] 15:30: RN 00 Cardio pacemaker/I Cardiovasc Resolve 2018-042019-02-14 Amy CD ular d 0-18 10:00:00 [place] 10:05: RN 00 Musculoskel transfer Musculoske Resolve 2018-042019-02-07 Amy etal assistance letal d 0-18 10:05:00 [place] required 10:05: RN 00 Musculoskel requires Musculoske Resolve 2018-042019-02-07 Amy etal human letal d 0-18 10:05:00 [place] assist to 10:05: RN leave home 00 Safety risk for Safety Resolve 2018-042019-02-12 Kendal hospitaliza d 0-22 10:03:00 Fareed tion 20:40: 00 Safety can be left Safety Resolve 2018-042019-02-12 Kendal alone for d 0-22 10:03:00 Fareed only short 20:40: periods 00 Respiratory lung sounds Respirator Resolve 2018-042019-02-12 Amy deficit y d 0-23 10:03:00 [place] 10:03: RN 00 Endo/Lorenzo anti-coagul Endo/Lorenzo Resolve 2018-042019-02-12 Amy ation d 0-23 10:03:00 [place] therapy 10:03: RN 00 Musculoskel requires Musculoske Resolve 2018-042019-02-14 Amy etal human letal d 0-23 10:00:00 [place] assist to 10:03: RN leave home 00 Endo/Lorenzo anti-coagul Endo/Lorenzo Active 2018-04 Yojana ation 0-25 [place] therapy 10:00: 00 Endo/Lorenzo insulin Endo/Lorenzo Resolve 2018-042019-02-14 Yojana admn d 0-25 10:00:00 [place] dependence 10:00: 00 Endo/Lorenzo glucose Endo/Lorenzo Resolve 2018-042019-02-14 Yojana testing d 0-25 10:00:00 [place] dependence 10:00: 00 Neuro confusion Neuro/Emot Resolve 2018-042019-03-06 Yojana present ion d 0-25 11:00:00 [place] 10:00: 00 Neuro impaired Neuro/Emot Resolve 2018-042019-03-06 Yojana jiménezma ion d 0-25 11:00:00 [place] shawn 10:00: 00 Safety risk for Safety Active 2018-04 Yojana hoskinsiztony 0-25 [place] tion 10:00: 00 Safety can be left Safety Resolve 2018-042019-02-20 Yojana alone for d 0-25 08:50:00 [place] only short 10:00: periods 00 Safety cannot be Safety Resolve 2018-042019-02-20 Yojana left alone d 0-25 08:50:00 [place] 10:00: 00 Medication oral med Meds Resolve 2018-042019-02-14 Yojana assistance d 0-25 10:00:00 [place] required 10:00: 00 Medication injectable Meds Resolve 2018-042019-02-14 Yojana med d 0-25 10:00:00 [place] assistance 10:00: required 00 Endo/Lorenzo glucose Endo/Lorenzo Resolve 2018-042019-02-20 Amy testing d 0-28 08:50:00 [place] dependence 09:43: RN 00 Endo/Lorenzo insulin Endo/Lorenzo Resolve 2018-042019-02-20 Amy admn d 0-28 08:50:00 [place] dependence 09:43: RN 00 Musculoskel requires Musculoske Resolve 2018-042019-02-20 Amy etal human letal d 0-28 08:50:00 [place] assist to 09:43: RN leave home 00 Cardio pacemaker/I Cardiovasc Resolve 2018-042019-03-06 Yojana mullinsar d 0-31 11:00:00 [place] 08:50: 00 Medication oral med Meds Resolve 2018-042019-02-27 Yojana assistance d 0-31 11:30:00 [place] required 08:50: 00 Medication injectable Meds Resolve 2018-042019-02-27 Yojana med d 0-31 11:30:00 [place] assistance 08:50: required 00 Musculoskel transfer Musculoske Resolve 2018-042019-02-20 Yojana etal assistance letal d 0-31 08:50:00 [place] required 08:50: 00 Respiratory Incentive Respirator Resolve 2018-042019-02-27 Amy Spirometer y d 04 11:30:00 [place] /[place] 09:30: RN Device 00 treatments in home Endo/Lorenzo glucose Endo/Lorenzo Resolve 2018-042019-03-06 Amy tolerance d 04 11:00:00 [place] problem 09:30: RN 00 Endo/Lorenzo insulin Endo/Lorenzo Resolve 2018-042019-03-06 Amy admn d 04 11:00:00 [place] dependence 09:30: RN 00 Endo/Lorenzo glucose Endo/Lorenzo Resolve 2018-042019-03-06 Amy testing d 1-04 11:00:00 [place] dependence 09:30: RN 00 Neuro memory Neuro/Emot Resolve 2018-042019-03-06 Amy deficit ion d 04-26 11:00:00 [place] needing 09:30: RN supervision 00 Safety can be left Safety Resolve 2018-042019-03-06 Amy alone for d 04 11:00:00 [place] only short 09:30: RN periods 00 Elimination urinary Eliminatio Resolve 2018-042019-03-03 Amy incontinenc n d 04-29 09:30:00 [place] e 11:30: RN 00 Elimination catheter Eliminatio Active 2018- Amy present n 04-29 [place] 11:30: RN 00 Neuro anxiety Neuro/Emot Resolve 2018-042019-03-06 Amy present ion d - 11:00:00 [place] 11:30: RN 00 Musculoskel requires Musculoske Resolve 2018-042019-03-03 Amy etal human letal d 04-29 09:30:00 [place] assist to 11:30: RN leave home 00 Sensory impaired Sensory Resolve 2018-042019-03-06 Amy hearing d 05-03 11:00:00 [place] 09:30: RN 00 Medication injectable Meds Active 2018-04 Yojana med 05-06 [place] assistance 11:00: required 00 Medication oral med Meds Active 2018-04 Yojana assistance 05-06 [place] required 11:00: 00 Musculoskel requires Musculoske Resolve 2018-042019-03-06 Yojana etal human letal d 05-06 11:00:00 [place] assist to 11:00: leave home 00 Musculoskel transfer Musculoske Resolve 2018-042019-03-06 Yojana etal assistance letal d 05-06 11:00:00 [place] required 11:00: 00 Cardio pacemaker/I Cardiovasc Active 2018- Amy CD ular 05-11 [place] 11:38: RN 00 Sensory impaired Sensory Active 2018-04 Amy hearing 05-11 [place] 11:38: RN 00 Neuro memory Neuro/Emot Active 2018- Amy deficit ion - [place] needing 11:38: RN supervision 00 Neuro impaired Neuro/Emot Resolve 2018-042019-03-11 Amy decision-ma ion d 05-11 11:38:00 [place] shawn 11:38: RN 00 Safety cannot be Safety Resolve 2018-042019-03-11 Amy left alone d 05-11 11:38:00 [place] 11:38: RN 00 Musculoskel requires Musculoske Resolve 2018-042019-03-11 Amy etal human letal d 05-11 11:38:00 [place] assist to 11:38: RN leave home 00 Allergies, Adverse Reactions, Alerts Allergy Allergy Status Severity Reaction(s) Onset Inactive Treating Comments Name Type Date Date Clinician Pacemaker Unknown Active Unknown Reaction Karla PM not and Unknown 05-01 Brenda compatible Defibrilato [id number] with MRI. r this is alert, not allergy, incorrectly coded as allergy Xarelto Medication Active Unknown Reaction Yojana Name ID Unknown 11-01 [place] Medications Ordered Filled Start Stop Current Ordering Indication Dosage Frequency Signature Comments Components Medication Medication Date Date Medication? Clinician (SIG) Name Name acetaminoph acetaminoph 2018-04 Yes Breiman Unknown Unknown en 325 mg en 325 mg 0-02 Daryl JOHNSTON tablet tablet apixaban 5 apixaban 5 2018-04 Yes Breiman Unknown Unknown mg tablet mg tablet 0- Daryl JOHNSTONacidophil L.acidophil 2018-04 Yes Breiman Unknown Unknown us-Bifido.l us-Bifido.l 0- Daryl JOHNSTON ongum 16 mg ongum 16 mg capsule,del capsule,del ayed ayed release release Aspirin Aspirin 2018-04 Yes Breiman Unknown Unknown [facility]- Daryl JOHNSTON 81 mg 81 mg chewable chewable tablet tablet multivitami multivitami 2018-04 Yes Breiman Unknown Unknown n capsule n capsule 0- Daryl JOHNSTON levothyroxi levothyroxi 2018-04 Yes Breiman Unknown Unknown ne 25 mcg ne 25 mcg 0-02 Daryl JOHNSTON capsule capsule atorvastati atorvastati 2018-04 Yes Breiman Unknown Unknown n 80 mg n 80 mg 0- Daryl JOHNSTON tablet tablet nitroglycer nitroglycer 2018-04 Yes Breiman Unknown Unknown in 0.4 mg in 0.4 mg 0-02 Daryl JOHNSTON sublingual sublingual tablet tablet potassium potassium 2018-04 Yes Breiman Unknown Unknown chloride ER chloride ER 0-02 Daryl JOHNSTON 20 mEq 20 mEq tablet,exte tablet,exte nded nded release(par release(par t/cryst) t/cryst) chlordiazep chlordiazep 2018-04 Yes Breiman Unknown Unknown oxide-clidi oxide-clidi 0-02 Daryl JOHNSTON nium 5 nium 5 mg-2.5 mg mg-2.5 mg capsule capsule magnesium magnesium 2018-04 Yes Breiman Unknown Unknown oxide 500 oxide 500 0-02 Daryl JOHNSTON mg tablet mg tablet metoprolol metoprolol 2018-04 Yes Breiman Unknown Unknown tartrate 50 tartrate 50 0- Daryl JOHNSTON mg tablet mg tablet furosemide furosemide 2018-04- Yes Breiman Unknown Unknown 40 mg 40 mg 002-22 Daryl JOHNSTON tablet tablet omeprazole omeprazole 2018-04 Yes Breiman Unknown Unknown 40 mg 40 mg 0- Daryl JOHNSTON capsule,del capsule,del ayed ayed release release sotalol 80 sotalol 80 2018-04 Yes Breiman Unknown Unknown mg tablet mg tablet 001-24 aDryl JOHNSTON clopidogrel clopidogrel 2018-04 Yes Breiman Unknown Unknown 75 mg 75 mg 0- Daryl JOHNSTON tablet tablet donepezil donepezil 2018-04 Yes Breiman Unknown Unknown 10 mg 10 mg 0 Daryl JOHNSTON tablet tablet citalopram citalopram No Breiman Unknown Unknown 10 mg 10 mg Daryl JOHNSTON tablet tablet Calcium 500 Calcium 500 No Breiman Unknown Unknown 500 mg 500 mg Daryl JOHNSTON calcium calcium (1,250 mg) (1,250 mg) tablet tablet Lantus Lantus 2018-04 Yes Breiman Unknown Unknown Solostar Solostar 0- Daryl JOHNSTON U-100 U-100 Insulin 100 Insulin 100 unit/mL (3 unit/mL (3 mL) mL) subcutaneou subcutaneou s pen s pen A and D A and D No Breiman Unknown Unknown (joy, pet) (joy, pet) Daryl JOHNSTON topical topical ointment ointment Calcium 600 Calcium 600 2018-04 Yes Breiman Unknown Unknown 600 mg 600 mg 0 Daryl JOHNSTON calcium calcium (1,500 mg) (1,500 mg) tablet tablet predniSONE predniSONE 2018-04- Yes Breiman Unknown Unknown 20 mg 20 mg 002-17 Daryl JOHNSTON tablet tablet sotalol 80 sotalol 80 2018-04 Yes Breiman Unknown Unknown mg tablet mg tablet 0 Daryl JOHNSTON ciprofloxac ciprofloxac 2018-04- Yes Husseini Unknown Unknown in 500 mg in 500 mg 002-11 MDHerrera tablet tablet Colace 100 Colace 100 2018-04 Yes Breiman Unknown Unknown mg capsule mg capsule 0 Daryl JOHNSTON predniSONE predniSONE 2018-04 Yes Breiman Unknown Unknown 20 mg 20 mg 0 Daryl JOHNSTON tablet tablet furosemide furosemide 2018-04 Yes Breiman Unknown Unknown 40 mg 40 mg 04-24 ,Daryl tablet tablet Vital Signs Vital Name Observation Time Observation Value Comments SYSTOLIC mm[Hg] 2019-03-11 18:08:56 116 mm[Hg] mm[Hg] Method: Sit SYSTOLIC mm[Hg] 2019-01-22 18:08:08 138 mm[Hg] mm[Hg] Method: Stand DIASTOLIC mm[Hg] 2019-03-11 18:08:56 72 mm[Hg] mm[Hg] Method: Sit DIASTOLIC mm[Hg] 2019-01-22 18:08:08 82 mm[Hg] mm[Hg] Method: Stand PULSE 2019-03-11 18:08:56 64 /min /min RESP RATE 2019-03-11 18:08:56 16 /min /min TEMP 2019-03-11 18:08:56 97.5 [degF] Procedures This patient has no known procedures. Results This patient has no known results.
--- OUTSIDE RECORDS SUMMARY | 2019-03-13 18:06 | XMS REPORT ---
:1940 Author Organization [facility] Care Team Providers Name Role Phone Unavailable Unavailable Unavailable Problems Condition Condition Condition Status Onset Resolution Last Treating Comments Name Details Category Date Date Treatment Clinician Date Pain frequent Pain Mgmt Resolve 2018-042019-01-24 Denise pain d 0-02 10:00:00 C[place]il 10:10: [id number] 00 Cardio pacemaker/I Cardiovasc Resolve 2018-042019-02-03 Denise CD ular d 0-02 10:36:00 [place] 10:10: [id number] 00 Respiratory dyspnea Respirator Resolve 2018-042019-02-05 Denise present y d 0-02 12:24:00 [place] 10:10: [id number] 00 Endo/Lorenzo anti-coagul Endo/Lorenzo Resolve 2018-042019-02-07 Denise ation d 0-02 10:05:00 [place] therapy 10:10: [id number] 00 Endo/Lorenzo diabetic Endo/Lorenzo Resolve 2018-042019-01-24 Denise foot care d 0-02 10:00:00 [place] 10:10: [id number] 00 Sensory impaired Sensory Resolve 2018-042019-02-12 Denise hearing d 0-02 10:03:00 [place] 10:10: [id number] 00 Integument pressure Integument Active 2018-04 Denise ulcer 0-02 Cyril present 10:10: [id number] 00 Integument skin Integument Active 2018-04 Denies integrity 0-02 Cyril risk 10:10: [id number] 00 Integument knowledge/s Integument Active 2018-04 Denise kill 0-02 [place] deficit: pt 10:10: [id number] 00 Integument knowledge/s Integument Active 2018-04 Denise kill 0-02 [place] deficit: cg 10:10: [id number] 00 Nutrition nutritional Nutrition Resolve 2018-042019-02-05 Denise restriction d 0-02 12:24:00 [place] s 10:10: [id number] 00 Elimination catheter Eliminatio Resolve 2018-042019-01-31 Denise present n d 0-02 09:34:00 [place] 10:10: [id number] 00 Neuro confusion Neuro/Emot Resolve 2018-042019-02-12 Denise present ion d 0-02 10:03:00 [place] 10:10: [id number] 00 Neuro impaired Neuro/Emot Resolve 2018-042019-02-12 Denise decision-ma ion d 0-02 10:03:00 [place] shawn 10:10: [id number] 00 Neuro memory Neuro/Emot Resolve 2018-042019-02-12 Denise deficit ion d 0-02 10:03:00 Angela needing 10:10: [id number] supervision 00 Activity ADL Activity Resolve 2018-042019-02-07 Denise assistance d 0-02 10:05:00 [place] required 10:10: [id number] 00 Activity self-care Activity Resolve 2018-042019-02-07 Denise deficit d 0-02 10:05:00 [place] 10:10: [id number] 00 Activity knowledge/s Activity Resolve 2018-042019-02-07 Denise kill d 0-02 10:05:00 [place] deficit: pt 10:10: [id number] 00 Activity knowledge/s Activity Resolve 2018-042019-02-07 Denise kill d 0-02 10:05:00 [place] deficit: cg 10:10: [id number] 00 Safety structural Safety Resolve 2018-042019-02-07 Denise barriers d 0-02 10:05:00 [place] present 10:10: [id number] 00 Safety cannot be Safety Resolve 2018-042019-02-07 Denise left alone d 0-02 10:05:00 [place] 10:10: [id number] 00 Safety fall risk Safety Resolve 2018-042019-02-07 Denise factor d 0-02 10:05:00 [place] present 10:10: [id number] 00 Safety risk for Safety Resolve 2018-042019-02-07 Denise hospitaliza d 0-02 10:05:00 [place]il tion 10:10: [id number] 00 Medication oral med Meds Resolve 2018-042019-02-12 Denise assistance d 0-02 10:03:00 [place] required 10:10: [id number] 00 Medication injectable Meds Resolve 2018-042019-02-12 Denise med d 0-02 10:03:00 [place] assistance 10:10: [id number] required 00 Medication knowledge/s Meds Resolve 2018-042019-02-14 Denise kill d 0-02 10:00:00 [place] deficit: pt 10:10: [id number] 00 Musculoskel transfer Musculoske Resolve 2018-042019-02-05 Denise etal assistance letal d 0-02 12:24:00 [place] required 10:10: [id number] 00 Musculoskel requires Musculoske Resolve 2018-042019-02-05 Denise etal human letal d 0-02 12:24:00 [place]il assist to 10:10: [id number] leave home 00 Endo/Lorenzo glucose Endo/Lorenzo Resolve [...] kill ular 0-10 López deficit: cg 13:30: [id number] 00 OT: Self self-care OT: Active 2018-04 Magalis Care deficit Self-Care 0-10 López 13:30: [id number] 00 Respiratory Incentive Respirator Resolve 2018-042019-02-03 Amy Spirometer y d 0-14 10:36:00 [place] /Acapella 10:36: RN Device 00 treatments in home Elimination catheter Eliminatio Resolve 2018-042019-02-07 Amy present n d 0-14 10:05:00 [place] 10:36: RN 00 Respiratory Incentive Respirator Resolve 2018-042019-02-20 Hernandez Spirometer y d 0-15 08:50:00 Mishra /Acapella 15:40: [id number] Device 00 treatments in home Safety fire [...] Resolve 2018-042019-02-12 Kendal hospitaliza d 0-22 10:03:00 Guerrier tion 20:40: 00 Safety can be left Safety Resolve 2018-042019-02-12 Kendal alone for d 0-22 10:03:00 Guerrier only short 20:40: periods 00 Respiratory lung sounds Respirator Resolve 2018-042019-02-12 Amy deficit y d 0-23 10:03:00 [place] 10:03: RN 00 Endo/Lorenzo anti-coagul Endo/Lorenzo Resolve 2018-042019-02-12 Amy ation d 0-23 10:03:00 [place] therapy 10:03: RN 00 Musculoskel requires Musculoske Resolve 2018-042019-02-14 Amy etal human letal d 0-23 10:00:00 [place] assist to 10:03: RN leave home 00 Endo/Lorenzo anti-coagul Endo/Lorenzo Active 2018-04 Yojana ocampoion 0-25 Valle[place] therapy 10:00: 00 Endo/Lorenzo insulin Endo/Lorenzo Resolve 2018-042019-02-14 Yojana admn d 0-25 10:00:00 [place] dependence 10:00: 00 Endo/Lorenzo glucose Endo/Lorenzo Resolve 2018-042019-02-14 Yojana testing d 0-25 10:00:00 [place] dependence 10:00: 00 Neuro confusion Neuro/Emot Resolve 2018-042019-03-06 Yojana present ion d 0- 11:00:00 [place] 10:00: 00 Neuro impaired Neuro/Emot Resolve 2018-042019-03-06 Yojana jiménezma ion d 0 11:00:00 Valle[place] shawn 10:00: 00 Safety risk [...] 00 Cardio pacemaker/I Cardiovasc Resolve 2018-042019-03-06 Yojana OHARA ular d 0-31 11:00:00 [place] 08:50: 00 Medication oral med Meds Resolve 2018-042019-02-27 Yojana assistance d 0- 11:30:00 [place] required 08:50: 00 Medication injectable Meds Resolve 2018-042019-02-27 Yojana med d 0-31 11:30:00 [place] assistance 08:50: required 00 Musculoskel transfer Musculoske Resolve 2018-042019-02-20 Yojana etal assistance letal d 0 08:50:00 [place] required 08:50: 00 Respiratory Incentive Respirator Resolve 2018-042019-02-27 Amy Spirometer y d 1-04 11:30:00 [place] /[place]capella 09:30: RN Device 00 treatments in home Endo/Lorenzo glucose Endo/Lorenzo Resolve 2018-042019-03-06 Amy tolerance d 1-04 11:00:00 [place] problem 09:30: RN 00 Endo/Lorenzo insulin Endo/Lorenzo Resolve 2018-042019-03-06 Amy admn d 1-04 11:00:00 [place] dependence 09:30: RN 00 Endo/Lorenzo glucose Endo/Lorenzo Resolve 2018-042019-03-06 Amy testing d 1-04 11:00:00 [place] dependence 09:30: RN 00 Neuro memory Neuro/Emot Resolve 2018-042019-03-06 Amy deficit ion d 1-04 11:00:00 [place] needing 09:30: RN supervision 00 Safety can be left Safety Resolve 2018-042019-03-06 Amy alone for d 1-04 11:00:00 [place] only short 09:30: RN periods 00 Elimination urinary Eliminatio Resolve 2018-042019-03-03 Amy incontinenc n d - 09:30:00 [place] e 11:30: RN 00 Elimination catheter Eliminatio Active 2018 Amy present n 1-07 [place] 11:30: RN 00 Neuro anxiety Neuro/Emot Resolve 2018-042019-03-06 Amy present ion d 04-29 11:00:00 [place] 11:30: RN 00 Musculoskel requires [...] required 11:00: 00 Cardio pacemaker/I Cardiovasc Active 2018-04 Amy CD ular 05-11 [place] 11:38: RN 00 Allergies, Adverse Reactions, Alerts Allergy Allergy Status Severity Reaction(s) Onset Inactive Treating Comments Name Type Date Date Clinician Pacemaker Unknown Active Unknown Reaction Karla PM not and Unknown 05-01 Brenda compatible Defibrilato [id number] with MRI. r this is alert, not [...] Breiman Unknown Unknown mg tablet mg tablet 0-02 Daryl JOHNSTONacidophil L.acidophil 2018-04 Yes Breiman Unknown Unknown us-Bifido.l us-Bifido.l 0-02 Daryl JOHNSTON ongum 16 mg ongum 16 mg capsule,del capsule,del ayed ayed release release Aspirin Aspirin 2018-04 Yes Breiman Unknown Unknown [facility] 0- Daryl JOHNSTON 81 mg 81 mg chewable chewable tablet tablet multivitami multivitami 2018-04 Yes Breiman Unknown Unknown n capsule n capsule 0- Daryl JOHNSTON levothyroxi levothyroxi 2018-04 Yes Breiman Unknown Unknown ne 25 mcg ne 25 mcg 0- Daryl JOHNSTON capsule capsule atorvastati atorvastati 2018-04 Yes Breiman Unknown Unknown n 80 mg n 80 mg 0 Daryl JOHNSTON tablet tablet nitroglycer nitroglycer 2018-04 Yes Breiman Unknown Unknown in 0.4 mg in 0.4 mg 0 Daryl JOHNSTON sublingual sublingual tablet tablet potassium potassium 2018-04 Yes Breiman Unknown Unknown chloride ER chloride ER 0- Daryl JOHNSTON 20 mEq 20 mEq tablet,exte tablet,exte nded nded release(par release(par t/cryst) t/cryst) chlordiazep chlordiazep 2018-04 Yes Breiman Unknown Unknown oxide-clidi oxide-clidi 0- Daryl JOHNSTON nium 5 nium 5 mg-2.5 mg mg-2.5 mg capsule capsule magnesium magnesium 2018-04 Yes Breiman Unknown Unknown oxide 500 oxide 500 0- Daryl JOHNSTON mg tablet mg tablet metoprolol metoprolol 2018-04 Yes Breiman Unknown Unknown tartrate 50 tartrate 50 0- Daryl JOHNSTON mg tablet mg tablet furosemide furosemide 2018-04 Yes Breiman Unknown Unknown 40 mg 40 mg 0- Daryl JOHNSTON tablet tablet omeprazole omeprazole 2018-04 Yes Breiman Unknown Unknown 40 mg 40 mg 0- Daryl JOHNSTON capsule,del capsule,del ayed ayed release release sotalol 80 sotalol 80 2018-04 Yes Breiman Unknown Unknown mg tablet mg tablet 001-24 Daryl JOHNSTON clopidogrel clopidogrel 2018-04 Yes Breiman Unknown Unknown 75 mg 75 mg 0- Dayrl JOHNSTON tablet tablet donepezil donepezil 2018-04 Yes Breiman Unknown Unknown 10 mg 10 mg 0- Daryl JOHNSTON tablet tablet citalopram citalopram No Breiman Unknown Unknown 10 mg 10 mg Daryl JOHNSTON tablet tablet Calcium 500 Calcium 500 No Breiman Unknown Unknown 500 mg 500 mg Daryl JOHNSTON calcium calcium (1,250 mg) (1,250 mg) tablet tablet Lantus Lantus 2018-04 Yes Breiman Unknown Unknown Solostar Solostar 0-02 Daryl JOHNSTON U-100 U-100 Insulin 100 Insulin 100 unit/mL (3 unit/mL (3 mL) mL) subcutaneou subcutaneou s pen s pen A and D A and D No Breiman Unknown Unknown (joy, pet) (joy, pet) Daryl JOHNSTON topical topical ointment ointment Calcium 600 Calcium 600 2018-04 Yes Breiman Unknown Unknown 600 mg 600 mg 0- Daryl JOHNSTON calcium calcium (1,500 mg) (1,500 mg) tablet tablet predniSONE predniSONE 2018-04 Yes Breiman Unknown Unknown 20 mg 20 mg 0-06 02- Daryl JOHNSTON tablet tablet sotalol 80 sotalol 80 2018-04 Yes Breiman Unknown Unknown mg tablet mg tablet 0-04 Daryl JOHNSTON ciprofloxac ciprofloxac 2018-04 Yes Husseini Unknown Unknown in 500 mg in 500 mg 0-14 - MDHerrera tablet tablet Colace 100 Colace 100 2018-04 Yes Breiman Unknown Unknown mg capsule mg capsule 0- Daryl JOHNSTON predniSONE predniSONE 2018-04 Yes Breiman Unknown Unknown 20 mg 20 mg 0- Daryl JOHNSTON tablet tablet furosemide furosemide 2018-04 Yes Breiman Unknown Unknown 40 mg 40 mg 1 Daryl JOHNSTON tablet tablet Vital Signs Vital Name Observation [...]
--- OUTSIDE RECORDS SUMMARY | 2019-03-13 18:07 | XMS REPORT ---
:1940 Author Organization [facility] Care Team Providers Name Role Phone Unavailable Unavailable Unavailable Problems Condition Condition Condition Status Onset Resolution Last Treating Comments Name Details Category Date Date Treatment Clinician Date Pain frequent Pain Mgmt Resolve 2018-042019-01-24 Denise pain d 0-02 10:00:00 [place] 10:10: [id number] Cardio pacemaker/I Cardiovasc Resolve 2018-042019-02-03 Denise CD ular d 0-02 10:36:00 [place] 10:10: [id number] 00 Respiratory dyspnea Respirator Resolve 2018-042019-02-05 Denise present y d 0-02 12:24:00 [place] 10:10: [id number] 00 Endo/Lorenzo anti-coagul Endo/Lorenzo Resolve 2018-042019-02-07 Denise ation d 0-02 10:05:00 [place] therapy 10:10: [id number] 00 Endo/Lorenzo diabetic Endo/Lorenzo Resolve 2018-042019-01-24 Denise foot care d 0-02 10:00:00 [place] 10:10: [id number] 00 Sensory impaired Sensory Resolve 2018-042019-02-12 Denise hearing d 0-02 10:03:00 [place] 10:10: [id number] 00 Integument pressure Integument Active 2018-04 Denise ulcer 0-02 [place] present 10:10: [id number] 00 Integument skin Integument Active 2018-04 Denise integrity 0-02 [place] risk 10:10: [id number] 00 Integument knowledge/s Integument Active 2018-04 Denise kill 0-02 [place] deficit: pt 10:10: [id number] 00 Integument knowledge/s Integument Active 2018-04 Denise kill 0-02 [place] deficit: cg 10:10: [id number] 00 Nutrition nutritional Nutrition Resolve 2018-042019-02-05 Denise restriction d 0-02 12:24:00 [place] s 10:10: [id number] 00 Elimination catheter Eliminatio Resolve 2018-042019-01-31 Denise present n d 0-02 09:34:00 [place] 10:10: [id number] 00 Neuro confusion Neuro/Emot Resolve 2018-042019-02-12 Denise present ion d 0-02 10:03:00 [place] 10:10: [id number] 00 Neuro impaired Neuro/Emot Resolve 2018-042019-02-12 Denise decision-ma ion d 0-02 10:03:00 [place] shawn 10:10: [id number] 00 Neuro memory Neuro/Emot Resolve 2018-042019-02-12 Denise deficit ion d 0-02 10:03:00 Angela needing 10:10: [id number] supervision 00 Activity ADL Activity Resolve 2018-042019-02-07 Denise assistance d 0-02 10:05:00 [place] required 10:10: [id number] 00 Activity self-care Activity Resolve 2018-042019-02-07 Denise deficit d 0-02 10:05:00 [place] 10:10: [id number] 00 Activity knowledge/s Activity Resolve 2018-042019-02-07 Denise kill d 0-02 10:05:00 [place] deficit: pt 10:10: [id number] 00 Activity knowledge/s Activity Resolve 2018-042019-02-07 Denise kill d 0-02 10:05:00 [place] deficit: cg 10:10: [id number] 00 Safety structural Safety Resolve 2018-042019-02-07 Denise barriers d 0-02 10:05:00 [place] present 10:10: [id number] 00 Safety cannot be Safety Resolve 2018-042019-02-07 Denise left alone d 0-02 10:05:00 [place] 10:10: [id number] 00 Safety fall risk Safety Resolve 2018-042019-02-07 Denise factor d 0-02 10:05:00 [place] present 10:10: [id number] 00 Safety risk for Safety Resolve 2018-042019-02-07 Denise hospitaliza d 0-02 10:05:00 [place] tion 10:10: [id number] 00 Medication oral med Meds Resolve 2018-042019-02-12 Denise assistance d 0-02 10:03:00 [place] required 10:10: [id number] 00 Medication injectable Meds Resolve 2018-042019-02-12 Denise med d 0-02 10:03:00 [place] assistance 10:10: [id number] required 00 Medication knowledge/s Meds Resolve 2018-042019-02-14 Denise kill d 0-02 10:00:00 [place] deficit: pt 10:10: [id number] 00 Musculoskel transfer Musculoske Resolve 2018-042019-02-05 Denise etal assistance letal d 0-02 12:24:00 [place] required 10:10: [id number] 00 Musculoskel requires Musculoske Resolve 2018-042019-02-05 Denise etal human letal d 0-02 12:24:00 [place] assist to 10:10: [id number] leave home 00 Endo/Lorenzo glucose Endo/Lorenzo Resolve [...] kill ular 0-10 López deficit: cg 13:30: [id number] 00 OT: Self self-care OT: Active 2018-04 Magalis Care deficit Self-Care 0-10 López 13:30: [id number] 00 Respiratory Incentive Respirator Resolve 2018-042019-02-03 Amy Spirometer y d 0-14 10:36:00 [place] /Acapella 10:36: RN Device 00 treatments in home Elimination catheter Eliminatio Resolve 2018-042019-02-07 Amy present n d 0-14 10:05:00 [place] 10:36: RN 00 Respiratory Incentive Respirator Resolve 2018-042019-02-20 Hernandez Spirometer y d 0-15 08:50:00 Mishra /Acapella 15:40: [id number] Device 00 treatments in home Safety fire [...] 10:03: RN leave home 00 Endo/Lorenzo anti-coagul Endo/Lorezno Active 2018-04 Yojana ation 0-25 [place]le[place] therapy 10:00: 00 Endo/Lorenzo insulin Endo/Lorenzo Resolve 2018-042019-02-14 Yojana admn d 0-25 10:00:00 [place] dependence 10:00: 00 Endo/Lorenzo glucose Endo/Lorenzo Resolve 2018-042019-02-14 Yojana testing d 0-25 10:00:00 [place] dependence 10:00: 00 Neuro confusion Neuro/Emot Active 2018-04 Yojana present ion 0-25 [place] 10:00: 00 Neuro impaired Neuro/Emot Active 2018-04 Yojana decision-ma ion 0-25 [place] shawn 10:00: 00 Safety risk for [...] RN leave home 00 Cardio pacemaker/I Cardiovasc Active 2018-04 Yojana cedillo Val[place] 08:50: 00 Medication oral med Meds Resolve 2018-042019-02-27 Yojana assistance d 11:30:00 [place] required 08:50: 00 Medication injectable Meds Resolve 2018-042019-02-27 Yojana med d 11:30:00 [place] assistance 08:50: required 00 Musculoskel transfer Musculoske Resolve 2018-042019-02-20 Yojana etal assistance letal d 08:50:00 [place]le[place] required 08:50: 00 Respiratory Incentive Respirator Resolve 2018-042019-02-27 Amy Spirometer y d 1-04 11:30:00 [place] /[place]ella 09:30: RN Device 00 treatments in home Endo/Lorenzo glucose Endo/Lorenzo Active 2018-04 Amy tolerance 1-04 [place] problem 09:30: RN 00 Endo/Lorenzo insulin Endo/Lorenzo Active 2018-04 Amy admn 1-04 [place] dependence 09:30: RN 00 Endo/Lorenzo glucose Endo/Lorenzo Active 2018-04 Amy testing 1-04 [place] dependence 09:30: RN 00 Neuro memory Neuro/Emot Active 2018-04 Amy deficit ion 1-04 [place] needing 09:30: RN supervision 00 Safety can be left Safety Active 2018-04 Amy alone for 1-04 [place] only short 09:30: RN periods 00 Elimination urinary Eliminatio Resolve 2018-042019-03-03 Amy incontinenc n d 04-29 09:30:00 [place] e 11:30: RN 00 Elimination catheter Eliminatio Active 2018-04 Amy present n 04-29 [place] 11:30: RN 00 Neuro anxiety Neuro/Emot Active 2018-04 Amy present ion 04-29 [place] 11:30: RN 00 Musculoskel requires Musculoske Resolve 2018-042019-03-03 Amy etal human letal d 04-29 09:30:00 [place] assist to 11:30: RN leave home 00 Sensory impaired Sensory Active 2018-04 Amy hearing 05-03 [place] 09:30: RN 00 Allergies, Adverse Reactions, Alerts Allergy Allergy Status Severity Reaction(s) Onset Inactive Treating Comments Name Type Date Date Clinician Pacemaker Unknown Active Unknown Reaction Karla PM not and Unknown 05-01 Brenda compatible Defibrilato [id number] with MRI. r this is alert, not allergy, incorrectly coded as allergy Xarelto Medication Active Unknown Reaction Yojana Name ID Unknown 11-01 Vallely Medications Ordered Filled Start Stop Current Ordering Indication Dosage Frequency Signature Comments Components Medication Medication Date Date Medication? Clinician (SIG) Name Name acetaminoph acetaminoph 2018-04 Yes Breiman Unknown Unknown en 325 mg en 325 mg 0- Daryl JOHNSTON tablet tablet apixaban 5 apixaban 5 2018-04 Yes Breiman Unknown Unknown mg tablet mg tablet 0- Daryl JOHNSTONacidophil L.acidophil 2018-04 Yes Breiman Unknown Unknown us-Bifido.l us-Bifido.l 0- Daryl JOHNSTON ongum 16 mg ongum 16 mg capsule,del capsule,del ayed ayed release release Aspirin Aspirin 2018-04 Yes Breiman Unknown Unknown [facility] 0-02 Daryl JOHNSTON 81 mg 81 mg chewable chewable tablet tablet multivitami multivitami 2018-04 Yes Breiman Unknown Unknown n capsule n capsule 0-02 Daryl JOHNSTON levothyroxi levothyroxi 2018-04 Yes Breiman Unknown Unknown ne 25 mcg ne 25 mcg 0-02 Daryl JOHNSTON capsule capsule atorvastati atorvastati 2018-04 Yes Breiman Unknown Unknown n 80 mg n 80 mg 0-02 Daryl JOHNSTON tablet tablet nitroglycer nitroglycer 2018-04 [...] Breiman Unknown Unknown 40 mg 40 mg 0-06 03- Daryl JOHNSTON tablet tablet omeprazole omeprazole 2018-04 [...] Unknown mg tablet mg tablet 0- Daryl JOHNSTON ciprofloxac ciprofloxac 2018-04- Yes Husseini Unknown Unknown in 500 mg in 500 mg 02-11 MDHerrera tablet tablet Colace 100 Colace 100 2018-04 Yes Breiman Unknown Unknown mg capsule mg capsule 0-23 Daryl JOHNSTON predniSONE predniSONE 2018-04 Yes Breiman Unknown Unknown 20 mg 20 mg 0-28 Daryl JOHNSTON tablet tablet furosemide furosemide 2018-04 Yes Breiman Unknown Unknown 40 mg 40 mg 1-02 Daryl JOHNSTON tablet tablet Vital Signs Vital Name Observation Time Observation Value Comments SYSTOLIC mm[Hg] 2019-03-03 18:08:48 118 mm[Hg] mm[Hg] Method: Sit SYSTOLIC mm[Hg] 2019-01-22 18:08:08 138 mm[Hg] mm[Hg] Method: Stand DIASTOLIC mm[Hg] 2019-03-03 18:08:48 76 mm[Hg] mm[Hg] Method: Sit DIASTOLIC mm[Hg] 2019-01-22 18:08:08 82 mm[Hg] mm[Hg] Method: Stand PULSE 2019-03-03 18:08:48 64 /min /min RESP RATE 2019-03-03 18:08:48 16 /min /min TEMP 2019-03-03 18:08:48 97.4 [degF] Procedures This patient has no known procedures. Results This patient has no known results.
--- OUTSIDE RECORDS SUMMARY | 2019-03-13 18:07 | XMS REPORT ---
:1940 Author Organization [facility] Care Team Providers Name Role Phone Unavailable Unavailable Unavailable Problems Condition Condition Condition Status Onset Resolution Last Treating Comments Name Details Category Date Date Treatment Clinician Date Pain frequent Pain Mgmt Resolve 2018-042019-01-24 Denise pain d 0-02 10:00:00 [place] 10:10: [id number] 00 Cardio pacemaker/I Cardiovasc Resolve 2018-042019-02-03 Denise CD ular d 0-02 10:36:00 [place] 10:10: [id number] 00 Respiratory dyspnea Respirator Resolve 2018-042019-02-05 Denise present y d 0-02 12:24:00 [place] 10:10: [id number] 00 Endo/Lorenzo anti-coagul Endo/Lorenzo Resolve 2018-042019-02-07 Denise ation d 0-02 10:05:00 [place] therapy 10:10: [id number] 00 Endo/Lorenzo diabetic Endo/Lorenzo Resolve 2018-042019-01-24 Denise foot care d 0-02 10:00:00 [place] 10:10: [id number] 00 Sensory impaired Sensory Resolve 2018-042019-02-12 Denise hearing d 0-02 10:03:00 [place] 10:10: [id number] 00 Integument pressure Integument Active 2018-04 Denise ulcer 0-02 [place] present 10:10: [id number] 00 Integument skin Integument Active 2018-04 Denise integrity 0-02 [place] risk 10:10: [id number] 00 Integument knowledge/s Integument Active 2018-04 Denise kill 0-02 [place] deficit: pt 10:10: [id number] 00 Integument knowledge/s Integument Active 2018-04 Denise kill 0-02 [place] deficit: cg 10:10: [id number] 00 Nutrition nutritional Nutrition Resolve 2018-042019-02-05 Denise restriction d 0-02 12:24:00 [place] s 10:10: [id number] 00 Elimination catheter Eliminatio Resolve 2018-042019-01-31 Denise present n d 0-02 09:34:00 [place] 10:10: [id number] 00 Neuro confusion Neuro/Emot Resolve 2018-042019-02-12 Denise present ion d 0-02 10:03:00 [place] 10:10: [id number] 00 Neuro impaired Neuro/Emot Resolve 2018-042019-02-12 Denise decision-ma ion d 0-02 10:03:00 [place] shawn 10:10: [id number] 00 Neuro memory Neuro/Emot Resolve 2018-042019-02-12 Denise deficit ion d 0-02 10:03:00 [place] needing 10:10: [id number] supervision 00 Activity ADL Activity Resolve 2018-042019-02-07 Denise assistance d 0-02 10:05:00 [place] required 10:10: [id number] 00 Activity self-care Activity Resolve 2018-042019-02-07 Denise deficit d 0-02 10:05:00 [place] 10:10: [id number] 00 Activity knowledge/s Activity Resolve 2018-042019-02-07 Denise kill d 0-02 10:05:00 [place] deficit: pt 10:10: [id number] 00 Activity knowledge/s Activity Resolve 2018-042019-02-07 Denise kill d 0-02 10:05:00 [place] deficit: cg 10:10: [id number] 00 Safety structural Safety Resolve 2018-042019-02-07 Denise barriers d 0-02 10:05:00 [place] present 10:10: [id number] 00 Safety cannot be Safety Resolve 2018-042019-02-07 Denise left alone d 0-02 10:05:00 [place] 10:10: [id number] 00 Safety fall risk Safety Resolve 2018-042019-02-07 Denise factor d 0-02 10:05:00 [place] present 10:10: [id number] 00 Safety risk for Safety Resolve 2018-042019-02-07 Denise hospitaliza d 0-02 10:05:00 [place] tion 10:10: [id number] 00 Medication oral med Meds Resolve 2018-042019-02-12 Denise assistance d 0-02 10:03:00 [place] required 10:10: [id number] 00 Medication injectable Meds Resolve 2018-042019-02-12 Denise med d 0-02 10:03:00 [place] assistance 10:10: [id number] required 00 Medication knowledge/s Meds Resolve 2018-042019-02-14 Denise kill d 0-02 10:00:00 [place] deficit: pt 10:10: [id number] 00 Musculoskel transfer Musculoske Resolve 2018-042019-02-05 Denise etal assistance letal d 0-02 12:24:00 [place] required 10:10: [id number] 00 Musculoskel requires Musculoske Resolve 2018-042019-02-05 Denise etal human letal d 0-02 12:24:00 [place] assist to 10:10: [id number] leave home 00 Endo/Lorenzo glucose Endo/Lorenzo Resolve [...] 10:36:00 [place] deficit: cg 09:58: RN 00 Endo/Lornezo glucose Endo/Lorenzo Resolve 2018-042019-02-12 Amy tolerance d 0-07 10:03:00 [place] problem 09:58: RN 00 Cardio knowledge/s Cardiovasc Unknown 2018-04 Magalis kill ular 0-10 López deficit: cg 13:30: [id number] 00 OT: Self self-care OT: Active 2018-04 Magalis Care deficit Self-Care 0-10 Ló[place] 13:30: [id number] 00 Respiratory Incentive Respirator Resolve 2018-042019-02-03 Amy Spirometer y d 0-14 10:36:00 [place] /[place] 10:36: RN Device 00 treatments in home Elimination catheter Eliminatio Resolve 2018-042019-02-07 Amy present n d 0-14 10:05:00 [place] 10:36: RN 00 Respiratory Incentive Respirator Resolve 2018-042019-02-20 Hernandez Spirometer y d 0-15 08:50:00 Mishra /[place]ella 15:40: [id number] Device 00 treatments in home Safety fire [...] not and Unknown 05-01 Brenda compatible Defibrilato [id number] with MRI. r this is alert, not [...]
--- OUTSIDE RECORDS SUMMARY | 2019-03-13 18:07 | XMS REPORT ---
:1940 Author Organization [facility] Care Team Providers Name Role Phone Unavailable Unavailable Unavailable Problems Condition Condition Condition Status Onset Resolution Last Treating Comments Name Details Category Date Date Treatment Clinician Date Pain frequent Pain Mgmt Resolve 2018-042019-01-24 Denise pain d 0-02 10:00:00 [place] 10:10: [id number] 00 Cardio pacemaker/I Cardiovasc Resolve 2018-042019-02-03 Denise CD ular d 0-02 10:36:00 [place] 10:10: [id number] 00 Respiratory dyspnea Respirator Resolve 2018-042019-02-05 Denise present y d 0-02 12:24:00 [place] 10:10: [id number] 00 Endo/Lorenzo anti-coagul Endo/Lorenzo Resolve 2018-042019-02-07 Denise ation d 0-02 10:05:00 [place] therapy 10:10: [id number] 00 Endo/Lorenzo diabetic Endo/Lorenzo Resolve 2018-042019-01-24 Denise foot care d 0-02 10:00:00 [place] 10:10: [id number] 00 Sensory impaired Sensory Resolve 2018-042019-02-12 Denise hearing d 0-02 10:03:00 [place] 10:10: [id number] 00 Integument pressure Integument Active 2018-04 Denise ulcer 0-02 [place] present 10:10: [id number] 00 Integument skin Integument Active 2018-04 Denise integrity 0-02 [place] risk 10:10: [id number] 00 Integument knowledge/s Integument Active 2018-04 Denise kill 0-02 [place] deficit: pt 10:10: [id number] 00 Integument knowledge/s Integument Active 2018-04 Denise kill 0-02 [place] deficit: cg 10:10: [id number] 00 Nutrition nutritional Nutrition Resolve 2018-042019-02-05 Denise restriction d 0-02 12:24:00 [place] s 10:10: [id number] 00 Elimination catheter Eliminatio Resolve 2018-042019-01-31 Denise present n d 0-02 09:34:00 [place] 10:10: [id number] 00 Neuro confusion Neuro/Emot Resolve 2018-042019-02-12 Denise present ion d 0-02 10:03:00 [place] 10:10: [id number] 00 Neuro impaired Neuro/Emot Resolve 2018-042019-02-12 Denise decision-ma ion d 0-02 10:03:00 [place] shawn 10:10: [id number] 00 Neuro memory Neuro/Emot Resolve 2018-042019-02-12 Denise deficit ion d 0-02 10:03:00 Angela needing 10:10: [id number] supervision 00 Activity ADL Activity Resolve 2018-042019-02-07 Denise assistance d 0-02 10:05:00 [place] required 10:10: [id number] 00 Activity self-care Activity Resolve 2018-042019-02-07 Denise deficit d 0-02 10:05:00 [place] 10:10: [id number] 00 Activity knowledge/s Activity Resolve 2018-042019-02-07 Denise kill d 0-02 10:05:00 [place] deficit: pt 10:10: [id number] 00 Activity knowledge/s Activity Resolve 2018-042019-02-07 Denise kill d 0-02 10:05:00 [place] deficit: cg 10:10: [id number] 00 Safety structural Safety Resolve 2018-042019-02-07 Denise barriers d 0-02 10:05:00 [place] present 10:10: [id number] 00 Safety cannot be Safety Resolve 2018-042019-02-07 Denise left alone d 0-02 10:05:00 [place] 10:10: [id number] 00 Safety fall risk Safety Resolve 2018-042019-02-07 Denise factor d 0-02 10:05:00 [place] present 10:10: [id number] 00 Safety risk for Safety Resolve 2018-042019-02-07 Denise hospitaliza d 0-02 10:05:00 [place] tion 10:10: [id number] 00 Medication oral med Meds Resolve 2018-042019-02-12 Denise assistance d 0-02 10:03:00 [place] required 10:10: [id number] 00 Medication injectable Meds Resolve 2018-042019-02-12 Denise med d 0-02 10:03:00 [place] assistance 10:10: [id number] required 00 Medication knowledge/s Meds Resolve 2018-042019-02-14 Denise kill d 0-02 10:00:00 [place] deficit: pt 10:10: [id number] 00 Musculoskel transfer Musculoske Resolve 2018-042019-02-05 Denise etal assistance letal d 0-02 12:24:00 [place] required 10:10: [id number] 00 Musculoskel requires Musculoske Resolve 2018-042019-02-05 Denise etal human letal d 0-02 12:24:00 [place] assist to 10:10: [id number] leave home 00 Endo/Lorenzo glucose Endo/Lorenzo Resolve 2018-042019-02-12 Yojana testing d 0-04 10:03:00 [place] dependence 10:00: 00 Neuro anxiety Neuro/Emot Resolve 2018-042019-02-12 Yojana present ion d 0-04 10:03:00 [place] 10:00: 00 Safety can be left Safety Resolve 2018-042019-02-07 Yojnaa alone for d 0-04 10:05:00 [place] only short 10:00: periods 00 Medication potential Meds Resolve 2018-042019-02-14 Yojana clinically d 0-04 10:00:00 [place] significant 10:00: medication 00 issue Cardio edema Cardiovasc Resolve 2018-042019-02-07 Aym ular d 0-07 10:05:00 [place] 09:58: RN 00 Cardio knowledge/s Cardiovasc Resolve 2018-042019-02-03 Amy kill ular d 0-07 10:36:00 [place] deficit: cg 09:58: RN 00 Endo/Lorenzo glucose Endo/Lorenzo Resolve 2018-042019-02-12 Amy tolerance d 0-07 10:03:00 [place] problem 09:58: RN 00 Cardio knowledge/s Cardiovasc Unknown 2018-04 Magalis kill ular 0-10 Ló[place] deficit: cg 13:30: [id number] 00 OT: Self self-care OT: Active 2018-04 Magalis Care deficit Self-Care 0-10 Ló[place] 13:30: [id number] 00 Respiratory Incentive Respirator Resolve 2018-042019-02-03 Amy Spirometer y d 0-14 10:36:00 [place] /[place] 10:36: RN Device 00 treatments in home Elimination catheter Eliminatio Resolve 2018-042019-02-07 Amy present n d 0-14 10:05:00 [place] 10:36: RN 00 Respiratory Incentive Respirator Resolve 2018-042019-02-20 Hernandez Spirometer y d 0-15 08:50:00 Mishra /[place] 15:40: [id number] Device 00 treatments in home Safety fire [...] 00 Medication oral med Meds Resolve 2018-042019-02-14 Yjoana assistance d 0-25 10:00:00 [place] required 10:00: [...] 09:30: RN Device 00 treatments in home Endo/Lroenzo glucose Endo/Lorenzo Resolve 2018-042019-03-06 Amy tolerance d [...] d 05-06 11:00:00 [place] required 11:00: 00 Allergies, Adverse Reactions, Alerts Allergy Allergy Status Severity Reaction(s) Onset Inactive Treating Comments Name Type Date Date Clinician Pacemaker Unknown Active Unknown Reaction Karla PM not and Unknown 05-01 Brenda compatible Defibrilato [id number] with MRI. r this is alert, not [...] Unknown in 0.4 mg in 0.4 mg 0- Daryl JOHNSTON sublingual sublingual tablet tablet potassium [...] Breiman Unknown Unknown mg tablet mg tablet 0-06 02- Daryl JOHNSTON clopidogrel clopidogrel 2018-04 Yes Breiman [...] mg tablet 0- Daryl JOHNSTON ciprofloxac ciprofloxac 2018-04 Yes Husseini Unknown Unknown in 500 mg in 500 mg 02-11 ,Herrera tablet tablet Colace 100 Colace 100 2018-04 Yes Breiman Unknown Unknown mg capsule mg capsule 0 Daryl JOHNSTON predniSONE predniSONE 2018-04 Yes Breiman Unknown Unknown 20 mg 20 mg 0 Daryl JOHNSTON tablet tablet furosemide furosemide 2018-04 Yes Breiman Unknown Unknown 40 mg 40 mg 04-24 Daryl JOHNSTON tablet tablet Vital Signs Vital Name Observation Time Observation Value Comments SYSTOLIC mm[Hg] 2019-03-06 18:08:51 128 mm[Hg] mm[Hg] Method: Sit SYSTOLIC mm[Hg] 2019-01-22 18:08:08 138 mm[Hg] mm[Hg] Method: Stand DIASTOLIC mm[Hg] 2019-03-06 18:08:51 80 mm[Hg] mm[Hg] Method: Sit DIASTOLIC mm[Hg] 2019-01-22 18:08:08 82 mm[Hg] mm[Hg] Method: Stand PULSE 2019-03-06 18:08:51 58 /min /min RESP RATE 2019-03-06 18:08:51 16 /min /min TEMP 2019-03-06 18:08:51 96.8 [degF] Procedures This patient has no known procedures. Results This patient has no known results.
--- OUTSIDE RECORDS SUMMARY | 2019-03-13 18:07 | XMS REPORT | Continuity of Care Document ---
:1940 External Reference #:[id number] Author Name Johanny Barba M.D. 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 Onset: 09/10/2013 Pure hypercholesterolemia Johanny Barba M.D. Onset: 09/10/2013 Essential hypertension Johanny Barba M.D. Onset: 09/10/2013 Arteriosclerosis of autologous vein Johanny Barba M.D. Onset: 09/10/2013 coronary artery bypass graft Automatic implantable cardiac Johanny Barba M.D. Onset: 09/10/2013 defibrillator in situ Diabetes mellitus Johanny Barab M.D. Onset: 05/11/2014 Atherosclerotic heart disease of ak chin Johanny Barba M.D. Onset: 02/08/2015 coronary artery without angina pectoris Arteriosclerosis of coronary artery Johanny Barba M.D. Onset: 02/08/2015 bypass graft Chronic ischemic heart disease Johanny Barba M.D. Onset: 01/28/2016 Encounter for planned postprocedural Hunter Gill M.D., [facility], Onset: 2017 [place] [facility] [place] Acute subendocardial infarction Johanny Barba M.D. Onset: [...] Medications SIG Qnty Indications Ordering Date Provider Omeprazole Take 1 capsule by Abril 01/06/[address] mouth twice daily Onofre D.O. Clopidogrel Bisulfate Take 1 tablet by Abril 01/06/2019 75mg mouth once daily Onofre, D.O. Tablets Senna Take 1 tablet by Abril 12/17/2018 8.6mg Tablets mouth every 12 Onofre, D.O. hours as needed for constipation Colace Take 1 capsule by Abril 12/17/2018 100mg Capsules mouth twice daily Onofre, D.O. Eliquis 1 by mouth twice a 180tabs Nathalia S. 07/23/2018 5mg Tablets day Khalif, N.P. Sotalol HCL 1/2 by mouth twice 90tabs Nathalia S. 07/23/2018 80mg Tablets a day Khalif, N.P. Metoprolol Tartrate 1/2 by mouth twice 90tabs Nathalia S. 07/23/2018 50mg a day Khalif, N.P. Tablets Magnesium Oxide 1 by mouth twice 30tabs Hunter Gill, 04/29/2017 400mg daily Cady, [facility], Tablets [facility] Nitroglycerin 1 sl q 5 mins x3 Unknown 0.4mg Tablets as needed for Sub chest pain Donepezil HCL 1 every day Unknown 5mg Tablets Chlordiazepoxide 1 cap three times Breiman, HCL/Clidinium [place] day ( morning, MD Daryl noon, night) 5-2.5mg Capsules Levothyroxine Sodium 1 by mouth every Unknown 25mcg day ( 1/2 hr 1 Tablets hour before break) Probiotic 1 tab bid Unknown Tablets DR Hamm Inject 22 units Unknown 100Unit/ML Solution subcu twice daily Multivitamins 1 capsule daily 90caps Unknown Capsules Aspirin 1 by mouth every Unknown 81mg Tablets day Potassium Chloride ER 2 tablets by mouth 90tabs Unknown 20Meq am, 2 tablets at Tablets ER noon and 2 tablet pm (6 total per day) Lasix 2.5 by mouth every 90tabs Unknown 40mg Tablets day Lipitor 1 by mouth every 30tabs Unknown 80mg Tablets night at bedtime History Medications Doxycycline Hyclate Take 1 tablet by 14tabs Kathy Dunlap NP 2018 - mouth twice 01/10/2019 100mg Tablets daily Immunizations Description No Information Available Vital Signs [...] Fraction 40-45% rue large cuff Results Test Acquired Date Facility Test Result H/L Range Note Lipid Panel - 09/27/2018 [facility] Creatine <pending> [facility] [address] Kinase(CK) [place] [address] [phone] Laboratory test 09/27/2018 [facility] Magnesium <pending> finding [address] [place] [address] [phone] Procedures Date Code Description Status 09/27/2018 37953 Interrogation Implant Cardiovasc Monitor System Incl Completed Analysis Int 09/27/2018 41694 Interrogation Implant Cardiovasc Monitor System Incl Completed Analysis Int 09/27/2018 17306 Icd eval w/iterative adjment single lead Icd Completed 09/27/2018 17012 Icd eval w/iterative adjment single lead Icd Completed Medical Devices Description No Information Available Encounters Type Date Location Provider Dx Diagnosis Office Visit 01/06/2019 [facility] Mellissa Astudillo L89.623 Pressure ulcer 1:31p Infectious ADELAIDE Villagomez of left heel, Diseases stage 3 E11.621 Type 2 diabetes mellitus with foot ulcer Office Visit 12/22/2018 8:15a [facility] Abril Adhikari, E11.621 Type 2 diabetes D.O. mellitus with foot ulcer L97.421 Non-prs chr ulcer of left heel and midft lmt to brkdwn skin I48.0 Paroxysmal atrial fibrillation I25.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ak chin coronary artery w/o ang pctrs I10 Essential (primary) hypertension Office Visit 12/17/2018 10:04a [facility] Edith Paulino NP R53.1 Weakness Assoc, Hospitalists E11.9 Type 2 diabetes mellitus without complications I48.91 Unspecified atrial fibrillation I25.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ak chin coronary artery w/o ang pctrs I10 Essential (primary) hypertension Office Visit 12/17/2018 8:30a [facility] Mellissa Wilda L97.421 Non- prs chr [facility] [place] ADELAIDE Villagomez ulcer of left heel and midft lmt to brkdwn skin E11.621 Type 2 diabetes mellitus with foot ulcer Office Visit 12/16/2018 10:04a [facility] Edith Paulino NP R53.1 Weakness Assoc, Hospitalists R26.89 Other abnormalities of gait and mobility E11.9 Type 2 diabetes mellitus without complications I25.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ak chin coronary artery w/o ang pctrs I10 Essential (primary) hypertension I48.91 Unspecified atrial fibrillation Office Visit 12/15/2018 10:04a [facility] Assoc,anushka Avila, N.P. R53.1 Weakness Hospitalists E11.9 Type 2 diabetes mellitus without complications I25.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ak chin coronary artery w/o ang pctrs I10 Essential (primary) hypertension I48.91 Unspecified atrial fibrillation Office Visit 12/14/2018 10:03a [facility] Assoc,anushka Avila N.P. R53.1 Weakness Hospitalists R26.89 Other abnormalities of gait and mobility E11.9 Type 2 diabetes mellitus without complications I25.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ak chin coronary artery w/o ang pctrs I10 Essential (primary) hypertension I48.91 Unspecified atrial fibrillation Office Visit 12/13/2018 10:03a [facility] Bria Joselin, R53.1 Weakness Assoc,pc Hospitalists CHAIR PAD [employer]KER L89.301 Pressure ulcer of unspecified buttock, stage 1 R05 Cough R10.9 Unspecified abdominal pain Office Visit 10/10/2018 8:15a [facility] Jade L98.491 Non-prs chronic [place], [place] ulcer skin/ sites limited to brkdwn skin Office Visit 09/27/2018 11:00a Chikis [place] I42.9 Cardiomyopathy, [facility] 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 heel and midfoot with fat layer exposed 01/07/2019 E11.621 Type 2 diabetes mellitus with foot Abril Onofre, D.O. ulcer 01/07/2019 F32.9 Major depressive disorder, single Abril Onofre, D.O. episode, unspecified 01/07/2019 I48.0 Paroxysmal atrial fibrillation Abril Onofre, D.O. 01/07/2019 I25.10 Atherosclerotic heart disease of Abril Onofre, D.O. ak chin coronary artery with 01/07/2019 I10 Essential (primary) hypertension Abril Onofre, D.O. 01/06/2019 L89.623 Pressure ulcer of left heel, stage 3 Mellissa Villagomez, ADELAIDE 01/06/2019 E11.621 Type 2 diabetes mellitus with foot Mellissa Villagomez, ADELAIDE ulcer 12/24/2018 F32.9 Major depressive disorder, single Jade Holcomb, JESSY episode, unspecified 12/22/2018 E11.621 Type 2 diabetes mellitus with foot Royer Encarnacion.O. 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 heel and midfoot limited to breakdown of skin 12/22/2018 I48.0 Paroxysmal atrial fibrillation Royer Encarnacion.O. 12/22/2018 I25.10 Atherosclerotic heart disease of Royer Encarnacion.O. ak chin coronary artery with 12/22/2018 I10 Essential (primary) hypertension Royer Encarnacion.O. 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 Mellissa Villagomez, [employer] heel and midfoot limited to breakdown of skin 12/17/2018 E11.621 Type 2 diabetes mellitus with foot Mellissa Villagomez, [employer] ulcer 12/17/2018 E11.9 Type 2 diabetes mellitus without Edith Lora, CHAIR [employer] complications 12/17/2018 I48.91 Unspecified atrial fibrillation Edith Lora, CHAIR PAD MAKER 12/17/2018 I25.10 Atherosclerotic heart disease of Edith Lora, CHAIR PAD MAKER ak chin coronary artery with 12/17/2018 I10 Essential (primary) hypertension Edith Lora, CHAIR PAD MAKER 12/16/2018 R53.1 Weakness Edith Lora, CHAIR PAD MAKER 12/16/2018 R26.89 Other abnormalities of gait and Edith Lora, CHAIR PAD MAKER mobility 12/16/2018 E11.9 Type 2 diabetes mellitus without Edith Lora, CHAIR [employer]AD MA[employer] complications 12/16/2018 I25.10 Atherosclerotic heart disease of Edith Lora, CHAIR PAD MAKER ak chin coronary artery with 12/16/2018 I10 Essential (primary) hypertension Edith Lora, CHAIR PAD MAKER 12/16/2018 I48.91 Unspecified atrial fibrillation Edith Lora, CHAIR P[employer] MA[employer]ER 12/15/2018 R53.1 Weakness Zoe Avila, N.P. 12/15/2018 E11.9 Type 2 diabetes mellitus without Zoe Avila, N.P. complications 12/15/2018 I25.10 Atherosclerotic heart disease of Zoe Avila, N.P. ak chin coronary artery with 12/15/2018 I10 Essential (primary) hypertension Zoe Avila, N.P. 12/15/2018 I48.91 Unspecified atrial fibrillation Zoe Avila, N.P. 12/14/2018 R53.1 Weakness Zoe Avila, N.P. 12/14/2018 R26.89 Other abnormalities of gait and Zoe Avila, N.P. mobility 12/14/2018 E11.9 Type 2 diabetes mellitus without Zoe Avila, N.P. complications 12/14/2018 I25.10 Atherosclerotic heart disease of Zoe Avila, N.P. ak chin coronary artery with 12/14/2018 I10 Essential (primary) hypertension Zoe Avila, N.P. 12/14/2018 I48.91 Unspecified atrial fibrillation Zoe Avila, N.P. 12/13/2018 R53.1 Weakness Bria Olivera, CHAIR PAD MAKER 12/13/2018 L89.301 Pressure ulcer of unspecified [facility] Aysha, CHAIR P[employer] MAKER buttock, stage 1 12/13/2018 R05 Cough Bria Shortle, CHAIR PAD MAKER 12/13/2018 R10.9 Unspecified abdominal pain Bria Shortle, CHAIR P[employer]ER 10/21/2018 L89.622 Pressure ulcer of left heel, stage 2 Abril Adhikari D.O. 10/21/2018 I42.9 Cardiomyopathy, unspecified Abril Onofre, D.O. 10/21/2018 I48.0 Paroxysmal atrial fibrillation Abril Adhikari D.O. 10/21/2018 I25.10 Atherosclerotic heart disease of Abril Adhikari D.O. ak chin coronary artery with 10/21/2018 I10 Essential (primary) hypertension Abril Adhikari D.O. 10/21/2018 E11.8 Type 2 diabetes mellitus with Abril Onofre, D.O. unspecified complications 10/10/2018 L98.491 Non-pressure ulcer of skin of other JESSY Arambula sites limited to breakd 09/27/2018 I42.9 Cardiomyopathy, unspecified Johanny Barba M.D. 09/27/2018 I42.9 Cardiomyopathy, unspecified Gonzalo Kim.P. 09/27/2018 I42.9 Cardiomyopathy, unspecified Ica Pacer Schedule [...] Atherosclerotic heart disease of Nathalia Cuadra, N.P. ak chin coronary artery with 09/27/2018 R60.0 Localized edema Nathalia Cuadra, N.P. 09/17/2018 R33.9 Retention of urine, unspecified Ariana Brownlee, DO 09/17/2018 G31.84 Mild cognitive impairment, so stated Ariana Brownlee, DO 09/17/2018 I48.2 Chronic atrial fibrillation Ariana Brownlee, 09/17/2018 S22.41xD Multiple fractures of ribs, right Ariana Brownlee, DO side, subsequent encounter Plan of Treatment Future Appointment(s):03/18/2019 10:30 am - Johanny Barba M.D. at [facility]03/18/2019 10:00 am - Ica Pacer Schedule at [facility]01/07/2019 - Abril Adhikari D.O.L97.422 Non-pressure chronic ulcer of left heel and midfoot with fat layer uycurllE58.621 Type 2 diabetes mellitus with foot zglhfY37.9 Major depressive disorder, single episode, soylpqokqjuM77.0 Paroxysmal atrial ttomjzkuimonY78.10 Atherosclerotic heart disease of ak chin coronary artery withI10 Essential (primary) hypertension Functional Status Description No Information Available Mental Status Description No Information Available Referrals Description No Information Available
--- OUTSIDE RECORDS SUMMARY | 2019-03-13 18:07 | XMS REPORT ---
:1940 Author Organization [facility] Care Team Providers Name Role Phone Unavailable Unavailable Unavailable Problems Condition Condition Condition Status Onset Resolution Last Treating Comments Name Details Category Date Date Treatment Clinician Date Pain frequent Pain Mgmt Resolve 2018-042019-01-24 Denise pain d 0-02 10:00:00 [place] 10:10: [id number] 00 Cardio pacemaker/I Cardiovasc Resolve 2018-042019-02-03 Denise CD ular d 0-02 10:36:00 [place] 10:10: [id number] 00 Respiratory dyspnea Respirator Resolve 2018-042019-02-05 Denise present y d 0-02 12:24:00 [place] 10:10: [id number] 00 Endo/Lorenzo anti-coagul Endo/Lorenzo Resolve 2018-042019-02-07 Denise ation d 0-02 10:05:00 [place] therapy 10:10: [id number] 00 Endo/Lorenzo diabetic Endo/Lorenzo Resolve 2018-042019-01-24 Denise foot care d 0-02 10:00:00 [place] 10:10: [id number] 00 Sensory impaired Sensory Resolve 2018-042019-02-12 Denise hearing d 0-02 10:03:00 [place] 10:10: [id number] 00 Integument pressure Integument Active 2018-04 Denise ulcer 0-02 [place] present 10:10: [id number] 00 Integument skin Integument Active 2018-04 Denise integrity 0-02 [place] risk 10:10: [id number] 00 Integument knowledge/s Integument Active 2018-04 Denise kill 0-02 [place] deficit: pt 10:10: [id number] 00 Integument knowledge/s Integument Active 2018-04 Denise kill 0-02 [place] deficit: cg 10:10: [id number] 00 Nutrition nutritional Nutrition Resolve 2018-042019-02-05 Denise restriction d 0-02 12:24:00 [place] s 10:10: [id number] 00 Elimination catheter Eliminatio Resolve 2018-042019-01-31 Denise present n d 0-02 09:34:00 [place] 10:10: [id number] 00 Neuro confusion Neuro/Emot Resolve 2018-042019-02-12 Denise present ion d 0-02 10:03:00 [place] 10:10: [id number] 00 Neuro impaired Neuro/Emot Resolve 2018-042019-02-12 Denise decision-ma ion d 0-02 10:03:00 [place] shawn 10:10: [id number] 00 Neuro memory Neuro/Emot Resolve 2018-042019-02-12 Denise deficit ion d 0-02 10:03:00 Angela needing 10:10: [id number] supervision 00 Activity ADL Activity Resolve 2018-042019-02-07 Denise assistance d 0-02 10:05:00 [place] required 10:10: [id number] 00 Activity self-care Activity Resolve 2018-042019-02-07 Denise deficit d 0-02 10:05:00 [place] 10:10: [id number] 00 Activity knowledge/s Activity Resolve 2018-042019-02-07 Denise kill d 0-02 10:05:00 [place] deficit: pt 10:10: [id number] 00 Activity knowledge/s Activity Resolve 2018-042019-02-07 Denise kill d 0-02 10:05:00 [place] deficit: cg 10:10: [id number] 00 Safety structural Safety Resolve 2018-042019-02-07 Denise barriers d 0-02 10:05:00 [place] present 10:10: [id number] 00 Safety cannot be Safety Resolve 2018-042019-02-07 Denise left alone d 0-02 10:05:00 [place] 10:10: [id number] 00 Safety fall risk Safety Resolve 2018-042019-02-07 Denise factor d 0-02 10:05:00 [place] present 10:10: [id number] 00 Safety risk for Safety Resolve 2018-042019-02-07 Denise hospitaliza d 0-02 10:05:00 [place] tion 10:10: [id number] 00 Medication oral med Meds Resolve 2018-042019-02-12 Denise assistance d 0-02 10:03:00 [place] required 10:10: [id number] 00 Medication injectable Meds Resolve 2018-042019-02-12 Denise med d 0-02 10:03:00 [place] assistance 10:10: [id number] required 00 Medication knowledge/s Meds Resolve 2018-042019-02-14 Denise kill d 0-02 10:00:00 [place] deficit: pt 10:10: [id number] 00 Musculoskel transfer Musculoske Resolve 2018-042019-02-05 Denise etal assistance letal d 0-02 12:24:00 [place] required 10:10: [id number] 00 Musculoskel requires Musculoske Resolve 2018-042019-02-05 Denise etal human letal d 0-02 12:24:00 [place] assist to 10:10: [id number] leave home 00 Endo/Lorenzo glucose Endo/Lorenzo Resolve [...] kill ular 0-10 López deficit: cg 13:30: [id number] 00 OT: Self self-care OT: Active 2018-04 Magalis Care deficit Self-Care 0-10 López 13:30: [id number] 00 Respiratory Incentive Respirator Resolve 2018-042019-02-03 Amy Spirometer y d 0-14 10:36:00 [place] /Acapella 10:36: RN Device 00 treatments in home Elimination catheter Eliminatio Resolve 2018-042019-02-07 Amy present n d 0-14 10:05:00 [place] 10:36: RN 00 Respiratory Incentive Respirator Resolve 2018-042019-02-20 Hernandez Spirometer y d 0-15 08:50:00 Mishra /Acapella 15:40: [id number] Device 00 treatments in home Safety fire [...] Safety can be left Safety Resolve 2018-042019-02-12 eKndal alone for d 0-22 10:03:00 [place] only [...] not and Unknown 05-01 Brenda compatible Defibrilato [id number] with MRI. r this is alert, not [...]
--- OUTSIDE RECORDS SUMMARY | 2019-03-13 18:07 | XMS REPORT ---
:1940 Author Organization [facility] Care Team Providers Name Role Phone Unavailable Unavailable Unavailable Problems Condition Condition Condition Status Onset Resolution Last Treating Comments Name Details Category Date Date Treatment Clinician Date Pain frequent Pain Mgmt Resolve 2018-042019-01-24 Denise pain d 0-02 10:00:00 [place] 10:10: [id number] 00 Cardio pacemaker/I Cardiovasc Resolve 2018-042019-02-03 Denise CD ular d 0-02 10:36:00 [place] 10:10: [id number] 00 Respiratory dyspnea Respirator Resolve 2018-042019-02-05 Denise present y d 0-02 12:24:00 [place] 10:10: [id number] 00 Endo/Lorenzo anti-coagul Endo/Lorenzo Resolve 2018-042019-02-07 Denise ation d 0-02 10:05:00 [place] therapy 10:10: [id number] 00 Endo/Lorenzo diabetic Endo/Lorenzo Resolve 2018-042019-01-24 Denise foot care d 0-02 10:00:00 [place] 10:10: [id number] 00 Sensory impaired Sensory Resolve 2018-042019-02-12 Denise hearing d 0-02 10:03:00 [place] 10:10: [id number] 00 Integument pressure Integument Active 2018-04 Denise ulcer 0-02 [place] present 10:10: [id number] 00 Integument skin Integument Active 2018-04 Denise integrity 0-02 [place] risk 10:10: [id number] 00 Integument knowledge/s Integument Active 2018-04 Denise kill 0-02 [place] deficit: pt 10:10: [id number] 00 Integument knowledge/s Integument Active 2018-04 Denise kill 0-02 [place] deficit: cg 10:10: [id number] 00 Nutrition nutritional Nutrition Resolve 2018-042019-02-05 Denise restriction d 0-02 12:24:00 [place] s 10:10: [id number] 00 Elimination catheter Eliminatio Resolve 2018-042019-01-31 Denise present n d 0-02 09:34:00 [place] 10:10: [id number] 00 Neuro confusion Neuro/Emot Resolve 2018-042019-02-12 Denise present ion d 0-02 10:03:00 [place] 10:10: [id number] 00 Neuro impaired Neuro/Emot Resolve 2018-042019-02-12 Denise decision-ma ion d 0-02 10:03:00 [place] shawn 10:10: [id number] 00 Neuro memory Neuro/Emot Resolve 2018-042019-02-12 Denise deficit ion d 0-02 10:03:00 Angela needing 10:10: [id number] supervision 00 Activity ADL Activity Resolve 2018-042019-02-07 Denise assistance d 0-02 10:05:00 [place] required 10:10: [id number] 00 Activity self-care Activity Resolve 2018-042019-02-07 Denise deficit d 0-02 10:05:00 [place] 10:10: [id number] 00 Activity knowledge/s Activity Resolve 2018-042019-02-07 Denise kill d 0-02 10:05:00 [place] deficit: pt 10:10: [id number] 00 Activity knowledge/s Activity Resolve 2018-042019-02-07 Denise kill d 0-02 10:05:00 [place] deficit: cg 10:10: [id number] 00 Safety structural Safety Resolve 2018-042019-02-07 Denise barriers d 0-02 10:05:00 [place] present 10:10: [id number] 00 Safety cannot be Safety Resolve 2018-042019-02-07 Denise left alone d 0-02 10:05:00 [place] 10:10: [id number] 00 Safety fall risk Safety Resolve 2018-042019-02-07 Denise factor d 0-02 10:05:00 [place] present 10:10: [id number] 00 Safety risk for Safety Resolve 2018-042019-02-07 Denise hospitaliza d 0-02 10:05:00 [place] tion 10:10: [id number] 00 Medication oral med Meds Resolve 2018-042019-02-12 Denise assistance d 0-02 10:03:00 [place] required 10:10: [id number] 00 Medication injectable Meds Resolve 2018-042019-02-12 Denise med d 0-02 10:03:00 [place] assistance 10:10: [id number] required 00 Medication knowledge/s Meds Resolve 2018-042019-02-14 Denise kill d 0-02 10:00:00 [place] deficit: pt 10:10: [id number] 00 Musculoskel transfer Musculoske Resolve 2018-042019-02-05 Denise etal assistance letal d 0-02 12:24:00 [place] required 10:10: [id number] 00 Musculoskel requires Musculoske Resolve 2018-042019-02-05 Denise etal human letal d 0-02 12:24:00 [place] assist to 10:10: [id number] leave home 00 Endo/Lorenzo glucose Endo/Lorenzo Resolve [...] kill ular 0-10 Ló[place] deficit: cg 13:30: [id number] 00 OT: Self self-care OT: Active 2018-04 Magalis Care deficit Self-Care 0-10 [place] 13:30: [id number] 00 Respiratory Incentive Respirator Resolve 2018-042019-02-03 Amy Spirometer y d 0-14 10:36:00 [place] /[place] 10:36: RN Device 00 treatments in home Elimination catheter Eliminatio Resolve 2018-042019-02-07 Amy present n d 0-14 10:05:00 [place] 10:36: RN 00 Respiratory Incentive Respirator Resolve 2018-042019-02-20 Hernandez Spirometer y d 0-15 08:50:00 Mishra /[place] 15:40: [id number] Device 00 treatments in home Safety fire [...] not and Unknown 05-01 Brenda compatible Defibrilato [id number] with MRI. r this is alert, not [...]
[2019-03-13 18:22] LABS: Urine Appearance Turbid; Urine Bilirubin Negative (Negative); Urine Blood 1+ (Negative); Urine Color Yellow; Urine Glucose Negative (Negative); Urine Ketones Negative (Negative); Urine Nitrite Negative (Negative); Urine Protein 1+(30 mg/dL) (Negative); Urine Specific Gravity 1.017 (1.010-1.030); Urine Urobilinogen Negative (Negative)
[2019-03-13] MEDS ORDERED: NS 0.9% 1000 ML** 1,000 ML IV ONE (18:24)
[2019-03-13 18:31] LABS: Urine Bacteria 1+ (Absent); Urine Red Blood Cell 1+(3-5/hpf) (Absent); Urine White Blood Cell 3+(>20/hpf) (Absent)
--- NOTE | 2019-03-13 18:36 | ED ---
Altered Mental Status - HPI Summary HPI Summary: This pt is a 78 y/o female presenting to [facility] for increased confusion. reports in the last couple of days pt has been having some confusion. Pt saw Dr. Ashford, her PCP, yesterday and was evaluated. Today states pt had increased confusion upon returning from work. Per , pt has been saying a lot of numbers. Pt has an indwelling catheter. PMHx includes DM, right leg DVT, pacemaker/defibrillator, CABG, dementia, frequent UTIs. HPI IS LIMITED DUE TO LEVEL 5 CAVEAT - pt is confused and hard of hearing. - History Of Current Complaint Stated Complaint: AMS PER EMS Time Seen by Provider: 03/13/19 18:05 Hx Obtained From: Family/Program Strategist - Hx From Patient Unobtainable Due To: Other - LEVEL 5 CAVEAT - pt is confused Hx Last Menstrual Period: N/A Onset/Duration: Still Present Timing: Lasting Days Severity Currently: Moderate Character: Confusion Aggravating Factor(s): Unknown Alleviating Factor(s): Unknown Associated Signs And Symptoms: Negative: Fever - Allergies/Home Medications Allergies/Adverse Reactions: Allergies Allergy/AdvReac Type Severity Reaction Status Date / Time rivaroxaban [From Xarelto] Allergy Bleeding Verified 08/03/18 10:53 Home Medications: Home Medications Calcium Carbonate/Vitamin D3 [Calcium 600 + Vit D Tablet] 1 tab PO BID 03/13/19 [History Confirmed 03/13/19] Furosemide TAB* [Lasix TAB*] 90 mg PO DAILY 03/13/19 [History Confirmed 03/13/19 ] Insulin GLARGINE(*) [Lantus(*)] 15 units SUBCUT BID 03/13/19 [History Confirmed 03/13/19] Levothyroxine TAB* [Synthroid TAB*] 50 mcg PO DAILY 03/13/19 [History Confirmed 03/13/19] Venlafaxine EXT RELEASE CAP* [Effexor Xr CAP*] 75 mg PO DAILY 03/13/19 [History Confirmed 03/13/19] predniSONE TAB* [Deltasone 20 MG TAB*] 10 mg PO DAILY 03/13/19 [History Confirmed 03/13/19] PMH/Surg Hx/FS Hx/Imm Hx Endocrine/Hematology History: Reports: Hx Anticoagulant Therapy - arixtra and plavix , Hx Diabetes Denies: Hx Thyroid Disease Cardiovascular History: Reports: Hx Angina, Hx Auto Implanted Cardiovert Defib, Hx Cardiac Arrest, Hx Coronary Artery Disease, Hx Deep Vein Thrombosis, Hx Hypercholesterolemia, Hx Hypertension, Hx Pacemaker/ICD - 2005, Hx Peripheral Vascular Disease, Other Cardiovascular Problems/Disorders - VT with VF ICD going off Denies: Hx Congestive Heart Failure Respiratory History: Denies: Other Respiratory Problems/Disorders GI History: Reports: Hx Gastrointestinal Bleed History: Reports: Hx Kidney Stones - IN THE PAST, Other Problems/ Disorders - recurrent UTI's, urethral dilation 03/2018 Denies: Hx Renal Disease Musculoskeletal History: Reports: Hx Arthritis Sensory History: Reports: Hx Cataracts, Hx Contacts or Glasses, Hx Hearing Problem - Bilateral hearing loss Denies: Hx Hearing Aid Opthamlomology History: Reports: Hx Cataracts, Hx Contacts or Glasses Neurological History: Denies: Hx Dementia, Hx Developmental Delay, Hx Headaches Psychiatric History: Reports: Hx Anxiety, Hx Depression - Cancer History Hx Chemotherapy: No Hx Radiation Therapy: No - Surgical History Surgical History: Yes Surgery Procedure, Year, and Place: pacer/defib;. cabg;. right leg bypass aorto-fem;. c section;. 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; hx sepsis Denies: Traveled Outside the [place] in Last 30 Days - Family History Known Family History: Positive: Cardiac Disease, Diabetes, Other - High cholesterol - Social History Alcohol Use: None Hx Substance Use: No Substance Use Type: Reports: None Hx Tobacco Use: Yes Smoking Status (MU): Former Smoker Type: Cigarettes Amount Used/How Often: 1-2 PPD Length of Time of Smoking/Using Tobacco: 39 YEARS Have You Smoked in the Last Year: No Review of Systems - ROS Summary Review of Systems Summary: ROS IS LIMITED DUE TO LEVEL 5 CAVEAT - pt is confused Negative: Fever Neurological: Other - POSITIVE: confusion All Other Systems Reviewed And Are Negative: No Physical Exam - Summary Physical Exam Summary: VITAL SIGNS: Reviewed. GENERAL: Patient is a well-developed and obese female who is lying comfortable in the stretcher. Patient is not in any acute respiratory distress. Patient is soiled with feces. HEAD AND FACE: No signs of trauma. No ecchymosis, hematomas or skull depressions. No sinus tenderness. EYES: PERRLA, EOMI x 2, No injected conjunctiva, no nystagmus. EARS: Hard of hearing. Ear canals and tympanic membranes are within normal limits. MOUTH: Oropharynx within normal limits. NECK: Supple, trachea is midline, no adenopathy, no JVD, no carotid bruit, no c- spine tenderness, neck with full ROM. CHEST: Symmetric, no tenderness at palpation LUNGS: Clear to auscultation bilaterally. No wheezing or crackles. CVS: Regular rate and rhythm, S1 and S2 present, no murmurs or gallops appreciated. ABDOMEN: Soft, non-tender. No signs of distention. No rebound no guarding, and no masses palpated. Bowel sounds are normal. She has an indwelling meléndez catheter. EXTREMITIES: FROM in all major joints, no edema, no cyanosis or clubbing. NEURO: Alert but not oriented. No acute neurological deficits. Speech is normal and follows commands. SKIN: Dry and warm Triage Information Reviewed: Yes Vital Signs On Initial Exam: Initial Vitals Temp Pulse Resp BP Pulse Ox 98.9 F 86 18 104/70 97 03/13/19 17:56 03/13/19 17:56 03/13/19 17:56 03/13/19 17:56 03/13/19 17:56 Vital Signs Reviewed: Yes Completion Of Physical Exam Limited Due To: Level 5 - pt is confused - [place] Coma Scale Best Eye Response: 4 - Spontaneous Best Motor Response: 6 - Obeys Commands Best Verbal Response: 4 - Confused Coma Scale Total: 14 Procedures - Sedation Patient Received Moderate/Deep Sedation with Procedure: No Diagnostics - Vital Signs Vital Signs Temp Pulse Resp BP Pulse Ox 03/13/19 17:56 98.9 F 86 18 104/70 97 - Laboratory Lab Results: Lab Results 03/13/19 Range/Units 18:05 Urine Color Yellow Urine Appearance Turbid Urine pH 7.0 (5-9) Ur Specific [place] 1.017 (1.010-1.030) Urine Protein 1+(30 mg/dl) A (Negative) Urine Ketones Negative (Negative) Urine Blood 1+ A (Negative) Urine Nitrate Negative (Negative) Urine Bilirubin Negative (Negative) Urine Urobilinogen Negative (Negative) Ur Leukocyte Esterase 3+ A (Negative) Urine Glucose Negative (Negative) Result Diagrams: 03/13/19 18:44 03/13/19 18:44 Lab Statement: Any lab studies that have been ordered have been reviewed, and results considered in the medical decision making process. - Radiology Chest XR Radiology Interpretation Completed By: ED Physician Summary of Radiographic Findings: Pacemaker/defibrillator. Chronic elevation of the right hemidiaphragm, otherwise negative. - CT Brain CT CT Interpretation Completed By: Radiologist Summary of CT Findings: IMPRESSION: 1. There is stable age-related diffuse cerebral volume loss and chronic microvascular ischemic disease. 2. No acute intracranial pathology. Dr. Lui has reviewed this report. - EKG 18:34 Cardiac Rate: NL - at 85 bpm EKG Rhythm: Sinus Rhythm Summary of EKG Findings: EKG at 18:34 shows normal sinus rhythm at a rate of 85 bpm. LBBB. Altered Mental Statu Course/Dx - Course Assessment/Plan: Patient is a 78-year-old female who presents to the emergency room with family members with a chief complaint of altered mental status. Blood work without any significant abnormality except for carbon dioxide of 33, glucose 220, magnesium 1.8, troponin 0.04, TSH is 6.21, urinalysis positive for UTI. CXR impression: No acute process. Head CT impression: No acute intracranial pathology. In the ED course the patient was given IV fluids and Rocephin. I decided to give the patient Rocephin since the patient has altered mental status even though the patient has a chronic ongoing catheter. At this point I discussed my physical exam and findings with Dr. Davis from the hospitalist services who accepted the patient for admission. - Diagnoses Provider Diagnoses: AMS (altered mental status), UTI (urinary tract infection), Elevated troponin - Provider Notifications Discussed Care Of Patient With: Jade Davis - hospitalist Time Discussed With Above Provider: 19:58 Instructed by Provider To: Admit As Inpatient Discharge ED - Sign-Out/Discharge Documenting (check all that apply): Patient Departure - [place] [facility]charge Plan Condition: Stable Disposition: ADMITTED TO [facility] - Billing Disposition and Condition Condition: STABLE Disposition: Admitted to [facility] - Attestation Statements Document Initiated by Scribe: Yes Documenting Scribe: Oly Sanabria Provider For Whom Scribe is Documenting (Include Credential): Estuardo Lui MD Scribe Attestation: I, Oly Sanabria, scribed for Estuardo Lui MD on 03/13/19 at 2128. Scribe Documentation Reviewed: Yes Provider Attestation: The documentation as recorded by the paoloibeOly accurately reflects the service I personally performed and the decisions made by me, Estuardo Lui MD Status of Scribe Document: Viewed
[2019-03-13 18:52] LABS: ABS Basophils 0.1 10^3/ul (0-0.2); ABS Eosinophils 0.1 10^3/ul (0-0.6); ABS Lymphocytes 1.6 10^3/ul (1.0-4.8); ABS Monocytes 0.5 10^3/ul (0-0.8); ABS Neutrophils 7.3 10^3/ul (1.5-7.7); Eosinophil % 1.2 %; Hematocrit 38 % (35-47); Hemoglobin 12.6 g/dL (12.0-16.0); Lymphocyte % 16.8 %; Mean Corpuscular HGB Conc 34 g/dL (31-36); Mean Corpuscular Hemoglobin 29 pg (27-31); Mean Corpuscular Volume 88 fL (80-97); Mean Platelet Volume 8.4 fL (7.4-10.4); Nucleated Red Blood Cells % 0.1; Platelet Count 147 10^3/uL (150-450); Red Blood Count 4.29 10^6 /uL (3.70-4.87); Red Cell Distribution Width 17 % (10-15); White Blood Count 9.7 10^3/uL (3.5-10.8)
[2019-03-13 19:11] LABS: ALT 25 U/L (7-52); AST 21 U/L (13-39); Albumin 3.2 g/dL (3.2-5.2); Albumin/Globulin Ratio 0.9 (1-3); Alkaline Phosphatase 111 U/L (34-104); Anion Gap 4 mmol/L (2-11); Blood Urea Nitrogen 20 mg/dL (6-24); CO2 Carbon Dioxide 33 mmol/L (22-32); Calcium 9.6 mg/dL (8.6-10.3); Chloride 101 mmol/L (101-111); Creatine Kinase 37 U/L (10-223); EGFR African American 99.8 (>60); EGFR Non-African American 82.5 (>60); Globulin 3.5 g/dL (2-4); Glucose 220 mg/dL (70-100); Magnesium 1.8 mg/dL (1.9-2.7); Sodium 138 mmol/L (135-145); Total Protein 6.7 g/dL (6.4-8.9)
[2019-03-13 19:17] LABS: Troponin I 0.04 ng/mL (<0.03)
[2019-03-13 19:34] LABS: Acetaminophen < 15 mcg/mL; Alcohol < 10 mg/dL (<10); Salicylate < 2.50 mg/dL (<30)
[2019-03-13 19:47] LABS: TSH (Thyroid Stimulating Horm) 6.21 mcIU/mL (0.34-5.60)
[2019-03-13] MEDS ORDERED: cefTRIAXone(*) 1 GM in NS 0.9% 50 ML* 50 ML IVPB ONE (19:51)
[2019-03-13] MEDS ORDERED: Senna TAB 8.6 mg* TAB PO PRN (20:02)
[2019-03-13] MEDS ORDERED: Acetaminophen TAB* 325 MG PO PRN (20:07)
[2019-03-13] MEDS ORDERED: Nitroglycerin TAB 0.4 MG* 0.4 MG TAB SL PRN (20:07)
[2019-03-13] MEDS ORDERED: Lorazepam PYXIS KEY PRN (20:24)
[2019-03-13] MEDS ORDERED: LORazepam INJ* 2 MG/ML 1 ML VIAL IV PUSH ONE (20:24)
[2019-03-13] MEDS ORDERED: Lorazepam PYXIS KEY ONE (20:32)
[2019-03-13] MEDS ORDERED: LORazepam INJ* 2 MG/ML 1 ML VIAL ONE (20:33)
--- NOTE | 2019-03-13 21:20 | HP ---
History of Present Illness - Past Medical History Cardiac: AFIB, CAD Gastrointestinal: GERD Review of Systems - Measurements Intake and Output: Intake and Output Last 24 Hours 03/11/19 03/12/19 03/13/19 03/14/19 06:59 06:59 06:59 06:59 Intake Total 50 Balance 50 Weight 178 lb Intake: IV Fluids 50 Objective Active Medications: Acetaminophen (Tylenol Tab*) 650 mg PO Q4H PRN PRN Reason: MILD PAIN or TEMP > 100.4 Acetaminophen (Tylenol Tab*) 650 mg PO BEDTIME PRN PRN Reason: PAIN Apixaban (Eliquis*) 5 mg PO BID [facility] Aspirin (Aspirin Ec Tab*) 81 mg PO DAILY [facility] Atorvastatin Calcium (Lipitor*) 80 mg PO BEDTIME [facility] Clopidogrel Bisulfate (Plavix Tab*) 75 mg PO DAILY [facility] Donepezil HCl (Aricept Tab*) 5 mg PO DAILY [facility] Sodium Chloride (Ns 0.9% 1000 Ml) 1,000 mls @ 75 mls/hr IV PER RATE [facility] Ceftriaxone Sodium 1 gm/ (Sodium Chloride) 50 mls @ 100 mls/hr IVPB Q24H [facility] Insulin Glargine (Lantus(*)) 15 units SUBCUT BID [facility] Levothyroxine Sodium (Synthroid Tab*) 50 mcg PO 0600 [facility] Magnesium Oxide (Magox 400 Tab*) 400 mg PO BID [facility] Metoprolol Tartrate (Lopressor Tab*) 25 mg PO BID [facility] Miscellaneous (Ativan Pyxis Gutierrez) 1 ea N/A .ATIVAN IV GUTIERREZ PRN PRN Reason: PYXIS GUTIERREZ Nitroglycerin (Nitroglycerin Tab 0.4 Mg*) 0.4 mg SL Q5M PRN PRN Reason: chest pain Pantoprazole Sodium (Protonix Tab*) 40 mg PO DAILY [facility] Senna (Senokot 8.6 Mg Tab*) 1 tab PO BID PRN PRN Reason: CONSTIPATION Sotalol HCl (Betapace Tab*) 40 mg PO BID [facility] Venlafaxine HCl (Effexor Xr Cap*) 75 mg PO DAILY [facility] Vital Signs - 8 hr 03/13/19 03/13/19 17:56 20:36 Temperature 98.9 F Pulse Rate 86 Respiratory 18 20 Rate Blood Pressure 104/70 (mmHg) O2 Sat by Pulse 97 Oximetry Result Diagrams: 03/13/19 18:44 03/13/19 18:44 Additional Lab and Data: Lab Results 03/13/19 Range/Units 18:05 Urine Color Yellow Urine Appearance Turbid Urine pH 7.0 (5-9) Ur Specific [place] 1.017 (1.010-1.030) Urine Protein 1+(30 mg/dl) A (Negative) Urine Ketones Negative (Negative) Urine Blood 1+ A (Negative) Urine Nitrate Negative (Negative) Urine Bilirubin Negative (Negative) Urine Urobilinogen Negative (Negative) Ur Leukocyte Esterase 3+ A (Negative) Urine Glucose Negative (Negative) Assess/Plan/Problems-Billing Assessment:
--- NOTE | 2019-03-13 21:38 | HP ---
History of Present Illness - History of Present Illness Reason for Visit: change in mental status History of Present Illness: 78 yo female with hypothyroidism, DM2 was brought in by family for acute confusion. At baseline, she does have some cognitive deficits, but never formally diagnosed but she is taking aricept. As of last night, she started behaving strangely. Pt seems confused, repeating numbers to herself, more anxious. In the ED, a UA came back pos. But she has an indwelling catheter for urinary retention last changed 2 weeks ago. Her urine has a foul smell. She was given ceftriaxone for likely UTI causing a change in mental status. Also, pt has been on steroids for 1 week and now on a taper. Family does not know what the indication for that medication was. - Past Medical History Cardiac: AFIB, CAD, HTN Psych: Depression Endocrine: Diabetes - Past Family History Family History: CAD, DM, Hyperlipidemia Review of Systems - Measurements Intake and Output: Intake and Output Last 24 Hours 03/11/19 03/12/19 03/13/19 03/14/19 06:59 06:59 06:59 06:59 Intake Total 50 Balance 50 Weight 178 lb Intake: IV Fluids 50 - Review of Systems Constitutional Symptoms: Negative: Weight Gain, Weight Loss, Weakness, Fatigue, Fever, Night Sweats, Unexplained Falls, Other Dermatology: Negative: Normal, Rash, Skin Lesions, Cancer, Skin Lumps, Other HEENT: Negative: Normal, Change in Hearing, Vertigo, Dental Problems, Tinnitus, Sinus Problem, Other Eyes: Negative: Normal, Change in Vision, Double Vision, Eye Pain, Glaucoma, Cataract, Contacts or Glasses, Other Thyroid: Negative: Normal, Goiter, Thyroid Nodule, Cold Intolerance, Heat Intolerance , Sweatiness, Tremor, Frequent Defecation, Constipation, Palpitations, Primary Hypothyroidism, Primary Hyperthyroidism, Weight Loss, Weight Gain, Change in Skin/Hair, Change in Menstruation, Radiation Exposure, Other Pulmonary: Negative: Normal, Cough, Sputum, Hemoptysis, Wheezing, Respiratory Distress, Shortness of Breath, COPD, Asthma, Exercise Intolerance, Home Oxygen, Other Cardiology: Negative: Normal, Chest Pain, Shortness of Breath, Palpitations, Swelling of Ankles, Peripheral Vascular Dis, Edema, Faintness, Syncope, Claudication, Proximal NocturnalDyspnea, Orthopnoea, Other Gastroenterology: Negative: Normal, Abdominal Pain, Nausea, Vomiting, Anorexia, Indigestion, Difficulty Swallowing, Heartburn, Constipation, Diarrhea, Blood in Stools, Change in Bowel Habits, Haematemesis, Melena, Other Genital - Urinary: Negative: Normal, Dysuria, Hematuria, Polyuria, Nocturia, Other Genitourinay - Female: Negative: Menses Normal, Vaginal Discharge, Menopause, Dysmenorrhea, Other Musculoskeletal: Negative: Joint Pain, Joint Stiffness, Arthritis, Osteoporosis, Low Back Pain , Sciatica, Joint Deformities, Kyphoscoliosis, Other Hematologic/Lymphatic: Negative: Anemia, Easy Bruising, Hx Leukemia, Hx Lymphoma, Use of Anticoagulant, Use of Antiplatelet Drugs, Other Neurology: Negative: Normal, Headache, Migraines, Change in Vision, Diplopia, Dizziness , Change in Balancing, Change in Coordination, Change in Memory, Change in Speech, Change in Sphincter Function, Change in Walking, Numbness\Paresthesiae, Unexplained Weakness, Hx of Stroke\TIA, Hx of Seizures, Other Objective Active Medications: Acetaminophen (Tylenol Tab*) 650 mg PO Q4H PRN PRN Reason: MILD PAIN or TEMP > 100.4 Acetaminophen (Tylenol Tab*) 650 mg PO BEDTIME PRN PRN Reason: PAIN Apixaban (Eliquis*) 5 mg PO BID [facility] Aspirin (Aspirin Ec Tab*) 81 mg PO DAILY [facility] Atorvastatin Calcium (Lipitor*) 80 mg PO BEDTIME [facility] Clopidogrel Bisulfate (Plavix Tab*) 75 mg PO DAILY [facility] Donepezil HCl (Aricept Tab*) 5 mg PO DAILY [facility] Sodium Chloride (Ns 0.9% 1000 Ml) 1,000 mls @ 75 mls/hr IV PER RATE [facility] Ceftriaxone Sodium 1 gm/ (Sodium Chloride) 50 mls @ 100 mls/hr IVPB Q24H [facility] Insulin Glargine (Lantus(*)) 15 units SUBCUT BID [facility] Levothyroxine Sodium (Synthroid Tab*) 50 mcg PO 0600 [facility] Magnesium Oxide (Magox 400 Tab*) 400 mg PO BID [facility] Metoprolol Tartrate (Lopressor Tab*) 25 mg PO BID [facility] Miscellaneous (Ativan Pyxis Gutierrez) 1 ea N/A .ATIVAN IV GUTIERREZ PRN PRN Reason: PYXIS GUTIERREZ Nitroglycerin (Nitroglycerin Tab 0.4 Mg*) 0.4 mg SL Q5M PRN PRN Reason: chest pain Pantoprazole Sodium (Protonix Tab*) 40 mg PO DAILY [facility] Senna (Senokot 8.6 Mg Tab*) 1 tab PO BID PRN PRN Reason: CONSTIPATION Sotalol HCl (Betapace Tab*) 40 mg PO BID [facility] Venlafaxine HCl (Effexor Xr Cap*) 75 mg PO DAILY [facility] Vital Signs - 8 hr 03/13/19 03/13/19 17:56 20:36 Temperature 98.9 F Pulse Rate 86 Respiratory 18 20 Rate Blood Pressure 104/70 (mmHg) O2 Sat by Pulse 97 Oximetry Oxygen Devices in Use Now: None Appearance: NID, pleasant Ears/Nose/Mouth/Throat: Clear Oropharnyx, Mucous Membranes Moist Neck: NL Appearance and Movements; NL JVP Respiratory: Symmetrical Chest Expansion and Respiratory Effort, Clear to Auscultation Cardiovascular: NL Sounds; No Murmurs; No JVD, No Edema Abdominal: NL Sounds; No Tenderness; No Distention, No Hepatosplenomegaly Lymphatic: No Cervical Adenopathy Skin: No Rash or Ulcers - alert, oriented to place, self Result Diagrams: 03/13/19 18:44 03/13/19 18:44 Additional Lab and Data: Lab Results 03/13/19 Range/Units 18:05 Urine Color Yellow Urine Appearance Turbid Urine pH 7.0 (5-9) Ur Specific [place] 1.017 (1.010-1.030) Urine Protein 1+(30 mg/dl) A (Negative) Urine Ketones Negative (Negative) Urine Blood 1+ A (Negative) Urine Nitrate Negative (Negative) Urine Bilirubin Negative (Negative) Urine Urobilinogen Negative (Negative) Ur Leukocyte Esterase 3+ A (Negative) Urine Glucose Negative (Negative) Assess/Plan/Problems-Billing Assessment: - Patient Problems (1) UTI (urinary tract infection) Current Visit: No Status: Acute Comment: - UA positive - Patient has chronic indwelling meléndez for urinary retention, changed in ED -with change in mental status, will treat for UTI -Cont ceftriaxone - the change in mental status could be from the steroids, since she was at the end of her taper, its safe to stop the steroids alltogether. (2) CAD (coronary artery disease) Current Visit: No Status: Acute Code(s): I25.10 - ATHSCL HEART DISEASE OF [place] CORONARY ARTERY W/O ANG PCTRS SNOMED Code(s): 63430191 Comment: - Continue aspirin, Plavix, metoprolol, sotalol (3) Dementia Current Visit: No Status: Acute Code(s): F03.90 - UNSPECIFIED DEMENTIA WITHOUT BEHAVIORAL DISTURBANCE SNOMED Code(s): 07365417 Comment: - Continue Aricept (4) Full code status Current Visit: No Status: Acute Onset Date: 07/05/14 Code(s): Z78.9 - OTHER SPECIFIED HEALTH STATUS SNOMED Code(s): 859577471 Comment: (5) Hypothyroidism Current Visit: No Status: Acute Code(s): E03.9 - HYPOTHYROIDISM, UNSPECIFIED SNOMED Code(s): 55443723 Comment: - Continue levothyroxine (6) Afib Current Visit: No Status: Chronic Code(s): I48.91 - UNSPECIFIED ATRIAL FIBRILLATION SNOMED Code(s): 19740338 Comment: - Continue metoprolol, Eliquis (7) Depression Current Visit: No Status: Chronic Code(s): F32.9 - MAJOR DEPRESSIVE DISORDER , SINGLE EPISODE, UNSPECIFIED SNOMED Code(s): 72809092 Comment: - Continue citalopram (8) GERD (gastroesophageal reflux disease) Current Visit: No Status: Chronic Code(s): K21.9 - GASTRO-ESOPHAGEAL REFLUX DISEASE WITHOUT ESOPHAGITIS SNOMED Code(s): 430913805 Comment: - Continue pantoprazole (9) HTN (hypertension) Current Visit: No Status: Chronic Code(s): I10 - ESSENTIAL (PRIMARY) HYPERTENSION SNOMED Code(s): 74122002 Comment: - Continue metoprolol, furosemide (10) AMS (altered mental status) Current Visit: Yes Status: Acute Code(s): R41.82 - ALTERED MENTAL STATUS, UNSPECIFIED SNOMED Code(s): 325985848 Comment: could be from UTI, and/or steroids seroquel nightly
[2019-03-13] MEDS: NS 0.9% 1000 ML** 1,000 ML IV SCH (23:15)
[2019-03-13] MEDS: Atorvastatin* 80 MG TAB PO SCH (23:17)
[2019-03-13] MEDS: Apixaban* 5 MG TAB PO SCH (23:17)
[2019-03-13] MEDS: Insulin GLARGINE(*) 1 UNITS UNIT SUBCUT SCH (23:17)
[2019-03-13] MEDS: Magnesium Oxide TAB* 400 MG PO SCH (23:17)
[2019-03-13] MEDS: Metoprolol Tartrate TAB* 25 MG PO SCH (23:18)
[2019-03-13] MEDS: Sotalol TAB* 80 MG PO SCH (23:21)
[2019-03-14] MEDS: QUEtiapine TAB* 25 MG PO PRN (01:00)
[2019-03-14] MEDS ORDERED: Levothyroxine TAB* 50 MCG TAB PO SCH (06:00)
[2019-03-14 07:35] LABS: ABS Basophils 0.1 10^3/ul (0-0.2); ABS Eosinophils 0.1 10^3/ul (0-0.6); ABS Lymphocytes 1.2 10^3/ul (1.0-4.8); ABS Monocytes 0.5 10^3/ul (0-0.8); ABS Neutrophils 5.6 10^3/ul (1.5-7.7); Eosinophil % 1.2 %; Hematocrit 34 % (35-47); Hemoglobin 11.4 g/dL (12.0-16.0); Lymphocyte % 16.4 %; Mean Corpuscular HGB Conc 33 g/dL (31-36); Mean Corpuscular Hemoglobin 30 pg (27-31); Mean Corpuscular Volume 88 fL (80-97); Mean Platelet Volume 8.6 fL (7.4-10.4); Nucleated Red Blood Cells % 0.1; Platelet Count 137 10^3/uL (150-450); Red Blood Count 3.88 10^6 /uL (3.70-4.87); Red Cell Distribution Width 18 % (10-15); White Blood Count 7.5 10^3/uL (3.5-10.8)
[2019-03-14] MEDS ORDERED: Dextrose 50% VIAL 50 ml IV PUSH PRN (07:46)
[2019-03-14 07:52] LABS: BUN/Creatinine Ratio 28.8 (8-20); Calcium 8.6 mg/dL (8.6-10.3); EGFR African American 138.4 (>60); EGFR Non-African American 114.3 (>60); Potassium 3.6 mmol/L (3.5-5.0)
[2019-03-14] MEDS ORDERED: Levothyroxine TAB* 75 MCG TAB PO SCH (08:00)
[2019-03-14] MEDS: Insulin GLARGINE(*) 1 UNITS UNIT SUBCUT SCH ×2 (08:34→22:19)
[2019-03-14] MEDS: cefTRIAXone(*) 1 GM in NS 0.9% 50 ML* 50 ML IVPB SCH (08:36)
[2019-03-14] MEDS: Apixaban* 5 MG TAB PO SCH ×2 (08:38→22:48)
[2019-03-14] MEDS: Sotalol TAB* 80 MG PO SCH ×2 (08:38→22:48)
[2019-03-14] MEDS: Metoprolol Tartrate TAB* 25 MG PO SCH ×2 (08:43→22:49)
[2019-03-14] MEDS: Donepezil TAB* 5 MG PO SCH (08:43)
[2019-03-14] MEDS: Magnesium Oxide TAB* 400 MG PO SCH ×2 (08:43→22:44)
[2019-03-14] MEDS: Aspirin EC TAB* 81 MG TAB.EC PO SCH (08:43)
[2019-03-14] MEDS: Clopidogrel TAB* 75 MG PO SCH (08:44)
[2019-03-14] MEDS: Pantoprazole TAB * 40 MG TAB PO SCH (08:44)
[2019-03-14] MEDS: Venlafaxine EXT RELEASE CAP* 75 MG PO SCH (08:44)
[2019-03-14 10:09] LABS: Free T4 0.82 ng/dL (0.61-1.12)
[2019-03-14] MEDS: Insulin LISPRO* 1 UNITS UNIT SUBCUT SCH ×2 (11:07→17:22)
--- NOTE | 2019-03-14 13:56 | PN ---
Subjective Date of Service: 03/14/19 Interval History: Daughter is accompanying patient at bedside. She stated her confusion stayed the same since admission, she always replied in numbers which they were not sure about the meaning. History reviewed, she was able to ambulate independently before coming to hospital. She did have baseline confusion, but was able to answer simple question, it got worse since Wed. She was on pred for months, but not sure the indication. Objective Active Medications: Acetaminophen (Tylenol Tab*) 650 mg PO Q4H PRN PRN Reason: MILD PAIN or TEMP > 100.4 Acetaminophen (Tylenol Tab*) 650 mg PO BEDTIME PRN PRN Reason: PAIN Apixaban (Eliquis*) 5 mg PO BID [facility] Last Admin: 03/14/19 08:38 Dose: 5 mg Aspirin (Aspirin Ec Tab*) 81 mg PO DAILY [facility] Last Admin: 03/14/19 08:43 Dose: 81 mg Atorvastatin Calcium (Lipitor*) 80 mg PO BEDTIME [facility] Last Admin: 03/13/19 23:17 Dose: 80 mg Clopidogrel Bisulfate (Plavix Tab*) 75 mg PO DAILY [facility] Last Admin: 03/14/19 08:44 Dose: 75 mg Dextrose (Dextrose 50% Vial 50 Ml*) 25 ml IV PUSH .FOR FS < 60 - SS PRN PRN Reason: FS < 60 Donepezil HCl (Aricept Tab*) 5 mg PO DAILY [facility] Last Admin: 03/14/19 08:43 Dose: 5 mg Sodium Chloride (Ns 0.9% 1000 Ml) 1,000 mls @ 75 mls/hr IV PER RATE [facility] Last Admin: 03/13/19 23:15 Dose: 75 mls/hr Ceftriaxone Sodium 1 gm/ (Sodium Chloride) 50 mls @ 100 mls/hr IVPB Q24H [facility] Last Admin: 03/14/19 08:36 Dose: 100 mls/hr Insulin Glargine (Lantus(*)) 10 units SUBCUT BID [facility] Insulin Human Lispro (Humalog*) 0 units SUBCUT AC [facility]; Protocol Last Admin: 03/14/19 11:07 Dose: Not Given Levothyroxine Sodium (Synthroid Tab*) 75 mcg PO 0600 [facility] Magnesium Oxide (Magox 400 Tab*) 400 mg PO BID [facility] Last Admin: 03/14/19 08:43 Dose: 400 mg Metoprolol Tartrate (Lopressor Tab*) 25 mg PO BID [facility] Last Admin: 03/14/19 08:43 Dose: 25 mg Miscellaneous (Ativan Pyxis Nelson) 1 ea N/A .ATIVAN IV NELSON PRN PRN Reason: PYXIS NELSON Nitroglycerin (Nitroglycerin Tab 0.4 Mg*) 0.4 mg SL Q5M PRN PRN Reason: chest pain Pantoprazole Sodium (Protonix Tab*) 40 mg PO DAILY [facility] Last Admin: 03/14/19 08:44 Dose: 40 mg Quetiapine Fumarate (Seroquel Tab*) 25 mg PO DAILY PRN PRN Reason: AGITATION/ANXIETY Last Admin: 03/14/19 01:00 Dose: 25 mg Senna (Senokot 8.6 Mg Tab*) 1 tab PO BID PRN PRN Reason: CONSTIPATION Sotalol HCl (Betapace Tab*) 40 mg PO BID [facility] Last Admin: 03/14/19 08:38 Dose: 40 mg Venlafaxine HCl (Effexor Xr Cap*) 75 mg PO DAILY [facility] Last Admin: 03/14/19 08:44 Dose: 75 mg Vital Signs - 8 hr 03/14/19 03/14/19 03/14/19 07:06 07:15 11:15 Temperature 98.4 F 98.3 F 98.1 F Pulse Rate 85 68 64 Respiratory 20 18 18 Rate Blood Pressure 128/52 120/43 122/58 (mmHg) O2 Sat by Pulse 95 96 99 Oximetry Oxygen Devices in Use Now: None Exam: Appearance: NAD, pleasant Ears/Nose/Mouth/Throat: Clear Oropharnyx, Mucous Membranes Moist Neck: NL Appearance and Movements; NL JVP Respiratory: Symmetrical Chest Expansion and Respiratory Effort, Clear to Auscultation Cardiovascular: NL Sounds; No Murmurs; No JVD, No Edema Abdominal: NL Sounds; No Tenderness; No Distention, No Hepatosplenomegaly Lymphatic: No Cervical Adenopathy Skin: No Rash or Ulcers Neuro: lethargic, not oriented to time, place, person Result Diagrams: 03/14/19 07:12 03/14/19 07:12 Additional Lab and Data: Lab Results 03/13/19 Range/Units 18:05 Urine Color Yellow Urine Appearance Turbid Urine pH 7.0 (5-9) Ur Specific [place] 1.017 (1.010-1.030) Urine Protein 1+(30 mg/dl) A (Negative) Urine Ketones Negative (Negative) Urine Blood 1+ A (Negative) Urine Nitrate Negative (Negative) Urine Bilirubin Negative (Negative) Urine Urobilinogen Negative (Negative) Ur Leukocyte Esterase 3+ A (Negative) Urine Glucose Negative (Negative) Assess/Plan/Problems-Billing Assessment: 78 y/o female with history of hypothyroidism, T2DM, dementia, presented with acute onset of AMS, likely due to urine tract infection,or/and pred related dilirium . 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, IDC changed - on iv cefriaxone - a/w urine cs result (3) Dementia Current Visit: No Status: Acute Priority: Medium Code(s): F03.90 - UNSPECIFIED DEMENTIA WITHOUT BEHAVIORAL DISTURBANCE SNOMED Code(s): 89856779 Comment: - Continue Aricept - check tsh, vitb12 (4) Hypothyroidism Current Visit: No Status: Acute Priority: Medium Code(s): E03.9 - HYPOTHYROIDISM, UNSPECIFIED SNOMED Code(s): 74248449 Comment: - TSH 6.21, free T4 normal - Continue levothyroxine dose 75mcg, repeat when out of sickness (5) DVT prophylaxis Current Visit: No Status: Acute Priority: Medium Onset Date: 07/05/14 Code(s): OOO4727 - SNOMED Code(s): 259466076 Comment: - Continue Eliquis 5mg bid (6) Full code status Current Visit: No Status: Acute Onset Date: 07/05/14 Code(s): Z78.9 - OTHER SPECIFIED HEALTH STATUS SNOMED Code(s): 576132023 Comment: Status and Disposition: Inpatient Medicine. Attestation Documenting Resident: Dawn Young Supervising Physician: Genaro Velasquez Attending/Supervising Physician Comment: 78 year old woman w/ dementia, admitted yesterday w/ delirium. Has indwelling meléndez, polymicrobial culture including pseudomonas. Patient alert, eating dinner. Reports was OOB to chair. Oriented to self, February, near , 2001, not date/day. Will keep antibiotics at empiric ceftriaxone level, not treat pseudomonas, enterococcus. May be improving w/ fluids. Consider changing meléndez before discharge. Attestation: This service has been performed in part by a resident under the direction of a teaching physician.I, Genaro Velasquez, performed the service, or was physically present during the critical, or nelson portions of the service, furnished by the resident. I participated in the management of the patient.
[2019-03-14] MEDS: NS 0.9% 1000 ML** 1,000 ML IV SCH (14:43)
[2019-03-14 14:51] LABS: Troponin I 0.05 ng/mL (<0.03)
[2019-03-14 18:47] LABS: Troponin I 0.04 ng/mL (<0.03)
[2019-03-14] MEDS: Acetaminophen TAB* 325 MG PO PRN (19:13)
[2019-03-14] MEDS: Atorvastatin* 80 MG TAB PO SCH (22:47)
[2019-03-15] MEDS: NS 0.9% 1000 ML** 1,000 ML IV SCH ×2 (03:24→20:37)
[2019-03-15] MEDS: Levothyroxine TAB* 75 MCG TAB PO SCH (05:06)
[2019-03-15 09:27] LABS: ABS Eosinophils 0.1 10^3/ul (0-0.6); ABS Lymphocytes 1.2 10^3/ul (1.0-4.8); ABS Monocytes 0.5 10^3/ul (0-0.8); Hematocrit 36 % (35-47); Hemoglobin 11.7 g/dL (12.0-16.0); Lymphocyte % 25.3 %; Mean Corpuscular HGB Conc 33 g/dL (31-36); Mean Corpuscular Hemoglobin 29 pg (27-31); Mean Corpuscular Volume 88 fL (80-97); Mean Platelet Volume 8.3 fL (7.4-10.4); Nucleated Red Blood Cells % 0.1; Platelet Count 119 10^3/uL (150-450); Red Blood Count 4.03 10^6 /uL (3.70-4.87); Red Cell Distribution Width 18 % (10-15); White Blood Count 4.9 10^3/uL (3.5-10.8)
[2019-03-15] MEDS: cefTRIAXone(*) 1 GM in NS 0.9% 50 ML* 50 ML IVPB SCH (09:34)
[2019-03-15] MEDS: Aspirin EC TAB* 81 MG TAB.EC PO SCH (09:35)
[2019-03-15] MEDS: Apixaban* 5 MG TAB PO SCH ×2 (09:35→21:55)
[2019-03-15] MEDS: Venlafaxine EXT RELEASE CAP* 75 MG PO SCH (09:35)
[2019-03-15] MEDS: Sotalol TAB* 80 MG PO SCH ×2 (09:36→21:55)
[2019-03-15] MEDS: Metoprolol Tartrate TAB* 25 MG PO SCH ×2 (09:36→21:55)
[2019-03-15] MEDS: Donepezil TAB* 5 MG PO SCH (09:36)
[2019-03-15] MEDS: Pantoprazole TAB * 40 MG TAB PO SCH (09:37)
[2019-03-15] MEDS: Clopidogrel TAB* 75 MG PO SCH (09:37)
[2019-03-15 09:38] LABS: Calcium 8.6 mg/dL (8.6-10.3); Potassium 4.2 mmol/L (3.5-5.0)
[2019-03-15] MEDS: Insulin LISPRO* 1 UNITS UNIT SUBCUT SCH ×3 (09:38→16:54)
[2019-03-15] MEDS: Insulin GLARGINE(*) 1 UNITS UNIT SUBCUT SCH ×2 (09:38→21:58)
[2019-03-15 09:44] LABS: C Reactive Protein 23.46 mg/L (<8.01); EGFR African American 129.7 (>60); EGFR Non-African American 107.2 (>60)
[2019-03-15] MEDS: QUEtiapine TAB* 25 MG PO PRN (10:38)
[2019-03-15] MEDS: Magnesium Oxide TAB* 400 MG PO SCH ×2 (13:07→21:54)
[2019-03-15] MEDS: Atorvastatin* 80 MG TAB PO SCH (21:55)
[2019-03-16] MEDS: Acetaminophen TAB* 325 MG PO PRN (01:52)
[2019-03-16] MEDS ORDERED: Haloperidol INJ IV/IM* 5 MG/ML AMP IM ONE (02:13)
[2019-03-16] MEDS: Levothyroxine TAB* 75 MCG TAB PO SCH (06:08)
[2019-03-16 06:28] LABS: ABS Eosinophils 0.1 10^3/ul (0-0.6); ABS Lymphocytes 1.4 10^3/ul (1.0-4.8); ABS Monocytes 0.5 10^3/ul (0-0.8); ABS Neutrophils 4.7 10^3/ul (1.5-7.7); Eosinophil % 1.7 %; Hematocrit 35 % (35-47); Hemoglobin 11.3 g/dL (12.0-16.0); Lymphocyte % 20.5 %; Mean Corpuscular HGB Conc 32 g/dL (31-36); Mean Corpuscular Hemoglobin 29 pg (27-31); Mean Corpuscular Volume 88 fL (80-97); Mean Platelet Volume 8.2 fL (7.4-10.4); Platelet Count 125 10^3/uL (150-450); Red Blood Count 3.97 10^6 /uL (3.70-4.87); Red Cell Distribution Width 17 % (10-15); White Blood Count 6.8 10^3/uL (3.5-10.8)
[2019-03-16 06:42] LABS: Calcium 8.8 mg/dL (8.6-10.3); Potassium 3.9 mmol/L (3.5-5.0)
[2019-03-16 06:48] LABS: BUN/Creatinine Ratio 23.2 (8-20)
[2019-03-16] MEDS: Insulin LISPRO* 1 UNITS UNIT SUBCUT SCH ×3 (08:26→16:46)
[2019-03-16] MEDS: Insulin GLARGINE(*) 1 UNITS UNIT SUBCUT SCH ×2 (08:27→20:55)
[2019-03-16] MEDS: cefTRIAXone(*) 1 GM in NS 0.9% 50 ML* 50 ML IVPB SCH (08:28)
[2019-03-16] MEDS: Aspirin EC TAB* 81 MG TAB.EC PO SCH (08:30)
[2019-03-16] MEDS: Venlafaxine EXT RELEASE CAP* 75 MG PO SCH (08:31)
[2019-03-16] MEDS: Magnesium Oxide TAB* 400 MG PO SCH ×2 (08:31→20:54)
[2019-03-16] MEDS: Apixaban* 5 MG TAB PO SCH ×2 (08:31→20:55)
[2019-03-16] MEDS: Sotalol TAB* 80 MG PO SCH ×2 (08:31→20:54)
[2019-03-16] MEDS: Metoprolol Tartrate TAB* 25 MG PO SCH ×2 (08:31→20:55)
[2019-03-16] MEDS: Donepezil TAB* 5 MG PO SCH (08:31)
[2019-03-16] MEDS: Pantoprazole TAB * 40 MG TAB PO SCH (08:31)
[2019-03-16] MEDS: Clopidogrel TAB* 75 MG PO SCH (08:31)
--- NOTE | 2019-03-16 11:17 | PN ---
Subjective Date of Service: 03/16/19 Interval History: Patient reports sore on backside that was present at home, hurting more when seated in chair. Also states she has RLQ pain. She cannot say whether old or new. in room, states at baseline was walking w/ walker at home. Now needs 2 assist. Meléndez was placed 5-6 months ago, followed by Dr. Montgomery. reports continuous incontinence if meléndez not present. Family History: Unchanged from Admission Social History: Unchanged from Admission Past Medical History: Unchanged from Admission Objective Active Medications: Current Medications: Acetaminophen (Tylenol Tab*) 650 mg PO Q4H PRN PRN Reason: MILD PAIN or TEMP > 100.4 Last Admin: 03/16/19 01:52 Dose: 650 mg Acetaminophen (Tylenol Tab*) 650 mg PO BEDTIME PRN PRN Reason: PAIN Apixaban (Eliquis*) 5 mg PO BID [facility] Last Admin: 03/16/19 08:31 Dose: 5 mg Aspirin (Aspirin Ec Tab*) 81 mg PO DAILY [facility] Last Admin: 03/16/19 08:30 Dose: 81 mg Atorvastatin Calcium (Lipitor*) 80 mg PO BEDTIME [facility] Last Admin: 03/15/19 21:55 Dose: 80 mg Clopidogrel Bisulfate (Plavix Tab*) 75 mg PO DAILY [facility] Last Admin: 03/16/19 08:31 Dose: 75 mg Dextrose (Dextrose 50% Vial 50 Ml*) 25 ml IV PUSH .FOR FS < 60 - SS PRN PRN Reason: FS < 60 Donepezil HCl (Aricept Tab*) 5 mg PO DAILY [facility] Last Admin: 03/16/19 08:31 Dose: 5 mg Sodium Chloride (Ns 0.9% 1000 Ml) 1,000 mls @ 75 mls/hr IV PER RATE [facility] Last Admin: 03/15/19 20:37 Dose: 75 mls/hr Ceftriaxone Sodium 1 gm/ (Sodium Chloride) 50 mls @ 100 mls/hr IVPB Q24H [facility] Last Admin: 03/16/19 08:28 Dose: 100 mls/hr Insulin Glargine (Lantus(*)) 10 units SUBCUT BID [facility] Last Admin: 03/16/19 08:27 Dose: 10 units Insulin Human Lispro (Humalog*) 0 units SUBCUT AC [facility]; Protocol Last Admin: 03/16/19 08:26 Dose: 9 units Levothyroxine Sodium (Synthroid Tab*) 75 mcg PO 0600 [facility] Last Admin: 03/16/19 06:08 Dose: 75 mcg Magnesium Oxide (Magox 400 Tab*) 400 mg PO BID [facility] Last Admin: 03/16/19 08:31 Dose: 400 mg Metoprolol Tartrate (Lopressor Tab*) 25 mg PO BID [facility] Last Admin: 03/16/19 08:31 Dose: 25 mg Nitroglycerin (Nitroglycerin Tab 0.4 Mg*) 0.4 mg SL Q5M PRN PRN Reason: chest pain Pantoprazole Sodium (Protonix Tab*) 40 mg PO DAILY [facility] Last Admin: 03/16/19 08:31 Dose: 40 mg Quetiapine Fumarate (Seroquel Tab*) 25 mg PO DAILY PRN PRN Reason: AGITATION/ANXIETY Last Admin: 03/15/19 10:38 Dose: 25 mg Senna (Senokot 8.6 Mg Tab*) 1 tab PO BID PRN PRN Reason: CONSTIPATION Sotalol HCl (Betapace Tab*) 40 mg PO BID [facility] Last Admin: 03/16/19 08:31 Dose: 40 mg Venlafaxine HCl (Effexor Xr Cap*) 75 mg PO DAILY [facility] Last Admin: 03/16/19 08:31 Dose: 75 mg Vital Signs - 8 hr 03/16/19 03/16/19 03/16/19 03:30 07:15 08:00 Temperature 36.6 C 36.0 C Pulse Rate 78 69 Respiratory 16 17 17 Rate Blood Pressure 139/48 108/76 (mmHg) O2 Sat by Pulse 93 95 Oximetry Oxygen Devices in Use Now: None Appearance: sitting in chair, awake, responding to questions Neck: Trachea Midline Respiratory: Symmetrical Chest Expansion and Respiratory Effort Cardiovascular: NL Sounds; No Murmurs; No JVD Neurological: - - oriented to self, place Lines/Tubes/Other Access: Clean, Dry and Intact Peripheral IV Nutrition: Taking PO's Result Diagrams: 03/16/19 06:07 03/16/19 06:07 Additional Lab and Data: Lab Results 03/13/19 Range/Units 18:05 Urine Color Yellow Urine Appearance Turbid Urine pH 7.0 (5-9) Ur Specific [place] 1.017 (1.010-1.030) Urine Protein 1+(30 mg/dl) A (Negative) Urine Ketones Negative (Negative) Urine Blood 1+ A (Negative) Urine Nitrate Negative (Negative) Urine Bilirubin Negative (Negative) Urine Urobilinogen Negative (Negative) Ur Leukocyte Esterase 3+ A (Negative) Urine Glucose Negative (Negative) Microbiology and Other Data: Microbiology 03/13/19 18:05 Urine Culture - Final Urine Escherichia Coli Pseudomonas Aeruginosa MRSA Enterococcus Faecalis Assess/Plan/Problems-Billing Assessment: 78 y/o female with history of hypothyroidism, T2DM, dementia, presented with acute onset of AMS, likely due to urine tract infection,or/and pred related dilirium . - Patient Problems (1) AMS (altered mental status) Current Visit: Yes Status: Acute Priority: High Code(s): R41.82 - ALTERED MENTAL STATUS, UNSPECIFIED SNOMED Code(s): 925311091 Comment: -multifactorial -could be from UTI, and/or steroids related, with background of advanced dementia -seroquel prn - reports at baseline now (2) Urinary tract infection Current Visit: Yes Status: Acute Comment: - urine culture interpretable due to catheter - d/w Dr. Jiménez, will remove meléndez due to indication (not retention) - manage incontinence with depends - continue ceftriaxone as clinically improving (3) Dementia Current Visit: Yes Status: Acute Priority: Medium Code(s): F03.90 - UNSPECIFIED DEMENTIA WITHOUT BEHAVIORAL DISTURBANCE SNOMED Code(s): 25306484 Comment: - Continue Aricept - B12 normal, TSH not elevated enough to cause mental status issues (4) Hypothyroidism Current Visit: Yes Status: Acute Priority: Medium Code(s): E03.9 - HYPOTHYROIDISM, UNSPECIFIED SNOMED Code(s): 01834639 Comment: - TSH 6.21, free T4 normal - Continue levothyroxine dose 75mcg, - likely was non-compliant at home (5) DVT prophylaxis Current Visit: Yes Status: Acute Priority: Medium Onset Date: 07/05/14 Code(s): KDE0626 - SNOMED Code(s): 960817050 Comment: - Continue Eliquis 5mg bid (6) Full code status Current Visit: Yes Status: Acute Onset Date: 07/05/14 Code(s): Z78.9 - OTHER SPECIFIED HEALTH STATUS SNOMED Code(s): 665323077 Comment: (7) Pressure ulcer Current Visit: Yes Status: Acute Priority: Medium Code(s): L89.90 - PRESSURE ULCER OF UNSPECIFIED SITE, UNSPECIFIED STAGE SNOMED Code(s): 309495323 Comment: Will examine patient w/ nurse when in bed. Status and Disposition: Inpatient Medicine.
--- NOTE | 2019-03-16 20:30 | PN ---
Progress Note - Progress Note Date of Service: 03/16/19 Note: I was notified by nursing that the patient's chronic meléndez was removed earlier today around 1200. She has not urinated since and has >400ml on bladder scan. I have ordered to have the meléndez reinserted.
[2019-03-16] MEDS: Atorvastatin* 80 MG TAB PO SCH (20:54)
[2019-03-17] MEDS: Levothyroxine TAB* 75 MCG TAB PO SCH (06:13)
[2019-03-17] MEDS: Insulin LISPRO* 1 UNITS UNIT SUBCUT SCH ×3 (09:25→18:11)
[2019-03-17] MEDS: Clopidogrel TAB* 75 MG PO SCH (09:26)
[2019-03-17] MEDS: Insulin GLARGINE(*) 1 UNITS UNIT SUBCUT SCH ×2 (09:26→21:43)
[2019-03-17] MEDS: Metoprolol Tartrate TAB* 25 MG PO SCH ×2 (09:26→21:42)
[2019-03-17] MEDS: cefTRIAXone(*) 1 GM in NS 0.9% 50 ML* 50 ML IVPB SCH (09:27)
[2019-03-17] MEDS: Magnesium Oxide TAB* 400 MG PO SCH ×2 (09:27→21:42)
[2019-03-17] MEDS: Sotalol TAB* 80 MG PO SCH ×2 (09:27→21:42)
[2019-03-17] MEDS: Donepezil TAB* 5 MG PO SCH (09:27)
[2019-03-17] MEDS: Venlafaxine EXT RELEASE CAP* 75 MG PO SCH (09:27)
[2019-03-17] MEDS: Aspirin EC TAB* 81 MG TAB.EC PO SCH (09:27)
[2019-03-17] MEDS: Pantoprazole TAB * 40 MG TAB PO SCH (09:27)
[2019-03-17] MEDS: Apixaban* 5 MG TAB PO SCH ×2 (09:27→21:42)
--- NOTE | 2019-03-17 16:47 | PN ---
Subjective Date of Service: 03/17/19 Interval History: Patient had no complains. No fever overnight. Noted patient failure ANAHY, and put back on Meléndez last night. Objective Active Medications: Acetaminophen (Tylenol Tab*) 650 mg PO Q4H PRN PRN Reason: MILD PAIN or TEMP > 100.4 Last Admin: 03/16/19 01:52 Dose: 650 mg Apixaban (Eliquis*) 5 mg PO BID [facility] Last Admin: 03/17/19 09:27 Dose: 5 mg Aspirin (Aspirin Ec Tab*) 81 mg PO DAILY [facility] Last Admin: 03/17/19 09:27 Dose: 81 mg Atorvastatin Calcium (Lipitor*) 80 mg PO BEDTIME [facility] Last Admin: 03/16/19 20:54 Dose: 80 mg Clopidogrel Bisulfate (Plavix Tab*) 75 mg PO DAILY [facility] Last Admin: 03/17/19 09:26 Dose: 75 mg Dextrose (Dextrose 50% Vial 50 Ml*) 25 ml IV PUSH .FOR FS < 60 - SS PRN PRN Reason: FS < 60 Donepezil HCl (Aricept Tab*) 5 mg PO DAILY [facility] Last Admin: 03/17/19 09:27 Dose: 5 mg Ceftriaxone Sodium 1 gm/ (Sodium Chloride) 50 mls @ 100 mls/hr IVPB Q24H [facility] Last Admin: 03/17/19 09:27 Dose: 100 mls/hr Insulin Glargine (Lantus(*)) 10 units SUBCUT BID [facility] Last Admin: 03/17/19 09:26 Dose: 10 units Insulin Human Lispro (Humalog*) 0 units SUBCUT AC [facility]; Protocol Last Admin: 03/17/19 13:34 Dose: 9 units Levothyroxine Sodium (Synthroid Tab*) 75 mcg PO 0600 [facility] Last Admin: 03/17/19 06:13 Dose: 75 mcg Magnesium Oxide (Magox 400 Tab*) 400 mg PO BID [facility] Last Admin: 03/17/19 09:27 Dose: 400 mg Metoprolol Tartrate (Lopressor Tab*) 25 mg PO BID [facility] Last Admin: 03/17/19 09:26 Dose: 25 mg Miscellaneous (Ativan Pyxis Nelson) 1 ea N/A .ATIVAN IV NELSON PRN PRN Reason: PYXIS NELSON Nitroglycerin (Nitroglycerin Tab 0.4 Mg*) 0.4 mg SL Q5M PRN PRN Reason: chest pain Pantoprazole Sodium (Protonix Tab*) 40 mg PO DAILY [facility] Last Admin: 03/17/19 09:27 Dose: 40 mg Quetiapine Fumarate (Seroquel Tab*) 25 mg PO DAILY PRN PRN Reason: AGITATION/ANXIETY Last Admin: 03/15/19 10:38 Dose: 25 mg Senna (Senokot 8.6 Mg Tab*) 1 tab PO BID PRN PRN Reason: CONSTIPATION Last Admin: 03/16/19 12:32 Dose: 1 tab Sotalol HCl (Betapace Tab*) 40 mg PO BID [facility] Last Admin: 03/17/19 09:27 Dose: 40 mg Venlafaxine HCl (Effexor Xr Cap*) 75 mg PO DAILY [facility] Last Admin: 03/17/19 09:27 Dose: 75 mg Vital Signs - 8 hr 03/17/19 13:10 Temperature 97.5 F Pulse Rate 65 Respiratory 24 Rate Blood Pressure 111/45 (mmHg) O2 Sat by Pulse 97 Oximetry Oxygen Devices in Use Now: None Exam: Appearance: NAD, pleasant Ears/Nose/Mouth/Throat: Clear Oropharnyx, Mucous Membranes Moist Neck: NL Appearance and Movements; NL JVP Respiratory: Symmetrical Chest Expansion and Respiratory Effort, Clear to Auscultation Cardiovascular: NL Sounds; No Murmurs; No JVD, No Edema Abdominal: NL Sounds; No Tenderness; No Distention, No Hepatosplenomegaly Lymphatic: No Cervical Adenopathy Skin: No Rash or Ulcers Neuro: oriented to place, person, unable to tell which year/date/day. Muscle strength 4 overall. Result Diagrams: 03/16/19 06:07 03/16/19 06:07 Additional Lab and Data: Lab Results 03/13/19 Range/Units 18:05 Urine Color Yellow Urine Appearance Turbid Urine pH 7.0 (5-9) Ur Specific [place] 1.017 (1.010-1.030) Urine Protein 1+(30 mg/dl) A (Negative) Urine Ketones Negative (Negative) Urine Blood 1+ A (Negative) Urine Nitrate Negative (Negative) Urine Bilirubin Negative (Negative) Urine Urobilinogen Negative (Negative) Ur Leukocyte Esterase 3+ A (Negative) Urine Glucose Negative (Negative) Microbiology and Other Data: Microbiology 11/21/19 18:05 Urine Culture - Final Urine Escherichia Coli Pseudomonas Aeruginosa MRSA Enterococcus Faecalis Assess/Plan/Problems-Billing Assessment: 78 y/o female with history of hypothyroidism, T2DM, dementia, presented with acute onset of AMS, likely due to urine tract infection,or/and pred related dilirium . - Patient Problems (1) AMS (altered mental status) Current Visit: Yes Status: Acute Priority: High Code(s): R41.82 - ALTERED MENTAL STATUS, UNSPECIFIED SNOMED Code(s): 749808519 Comment: -multifactorial -could be from UTI, and/or steroids related, with background of advanced dementia -seroquel prn - reports at baseline (2) Urinary tract infection Current Visit: Yes Status: Acute Comment: - urine culture interpretable due to catheter, clinically responding to ceftriaxone - ANAHY meléndez but failed - continue ceftriaxone as clinically improving, will complete 7/7 in total (3) Dementia Current Visit: Yes Status: Acute Priority: Medium Code(s): F03.90 - UNSPECIFIED DEMENTIA WITHOUT BEHAVIORAL DISTURBANCE SNOMED Code(s): 13551653 Comment: - Continue Aricept - B12 normal, TSH not elevated enough to cause mental status issues (4) Hypothyroidism Current Visit: Yes Status: Acute Priority: Medium Code(s): E03.9 - HYPOTHYROIDISM, UNSPECIFIED SNOMED Code(s): 85282504 Comment: - TSH 6.21, free T4 normal - Continue levothyroxine dose 75mcg, - likely was non-compliant at home (5) DVT prophylaxis Current Visit: Yes Status: Acute Priority: Medium Onset Date: 07/05/14 Code(s): AUX3355 - SNOMED Code(s): 044770406 Comment: - Continue Eliquis 5mg bid (6) Full code status Current Visit: Yes Status: Acute Onset Date: 07/05/14 Code(s): Z78.9 - OTHER SPECIFIED HEALTH STATUS SNOMED Code(s): 696792931 Comment: Status and Disposition: Inpatient Medicine. Plan for [facility] transfer Attestation Documenting Resident: Dawn Young Supervising Physician: Sandro Aldana Attending/Supervising Physician Comment: Called , states still concerned that patient is "stating numbers" today and not at baseline. She was not doing this with me. Seems acutely depressed from being in the hospital. Overall a poor historian. Trial of meléndez discontinuation was not successful with acute urinary retention. She did get a course of Cipro for PSDA/E Faecalis back on 01/31. Has been accepted at [facility] as still very deconditioned. No clear focal deficits (Afib on Eliquis), CTH without acute process on admission. Attestation: This service has been performed in part by a resident under the direction of a teaching physician.I, Sandro Aldana, performed the service, or was physically present during the critical, or nelson portions of the service, furnished by the resident. I participated in the management of the patient.
[2019-03-17] MEDS: Atorvastatin* 80 MG TAB PO SCH (21:42)
[2019-03-18] MEDS: QUEtiapine TAB* 25 MG PO PRN (00:41)
[2019-03-18] MEDS: Levothyroxine TAB* 75 MCG TAB PO SCH (05:34)
[2019-03-18] MEDS: Insulin GLARGINE(*) 1 UNITS UNIT SUBCUT SCH (09:21)
[2019-03-18] MEDS: Insulin LISPRO* 1 UNITS UNIT SUBCUT SCH ×2 (09:21→13:28)
[2019-03-18] MEDS: cefTRIAXone(*) 1 GM in NS 0.9% 50 ML* 50 ML IVPB SCH (09:21)
[2019-03-18] MEDS: Donepezil TAB* 5 MG PO SCH (09:22)
[2019-03-18] MEDS: Sotalol TAB* 80 MG PO SCH (09:22)
[2019-03-18] MEDS: Magnesium Oxide TAB* 400 MG PO SCH (09:22)
[2019-03-18] MEDS: Pantoprazole TAB * 40 MG TAB PO SCH (09:23)
[2019-03-18] MEDS: Clopidogrel TAB* 75 MG PO SCH (09:23)
[2019-03-18] MEDS: Aspirin EC TAB* 81 MG TAB.EC PO SCH (09:23)
[2019-03-18] MEDS: Venlafaxine EXT RELEASE CAP* 75 MG PO SCH (09:23)
[2019-03-18] MEDS: Metoprolol Tartrate TAB* 25 MG PO SCH (09:23)
[2019-03-18] MEDS: Apixaban* 5 MG TAB PO SCH (09:23)
[2019-03-18 13:09] VITALS: BP 109/50
--- NOTE | 2019-03-18 13:26 | DS ---
DATE OF ADMISSION: 03/13/2019. DATE OF DISCHARGE: 03/18/2019. ADMITTING PHYSICIAN: Dr. Jade Davis. PRIMARY CARE PHYSICIAN: Dr. Daryl Ashford. CHIEF COMPLAINT: Acute confusion. PRINCIPAL DIAGNOSIS: Altered mental status in the setting of baseline dementia , likely CAUTI. HISTORY OF PRESENT ILLNESS/HOSPITAL COURSE: Elisabeth Collins is a 78-year-old female with a past medical history of hypothyroidism, insulin dependent diabetes mellitus, CAD status post CABG in 1998, ventricular tachycardia, ischemic cardiomyopathy, DVT, hypertension, depression, peripheral artery disease, and atrial fibrillation on Eliquis. Please see history and physical of Dr. Davis for full details. Briefly, the patient has had an indwelling Gonzales catheter since the summer given episodes of urinary retention. She was brought in by family, concerned for acute confusion. She does have some baseline cognitive deficits and is taking Aricept. The night prior to admission , she was behaving strangely, seemed to be repeat numbers to herself and was anxious. She presented to [facility] Emergency Room. She had urine drawn for chronic Gonzales which had a 3+ leukocyte esterase, 3+ WBC's, 1+ RBC's, 1+ bacteria. She was without leukocytosis and afebrile. Troponin was 0.04, 0.05, and 0.04. She denied chest pain. She was started on Ceftriaxone. Urine cultures ultimately would grow polymicrobial infection with greater than 100,000 E. coli, 75 to 100, 000 pseudomonas aeruginosa, 25 to 50,000 MRSA, and 75 to 100,000 enterococcus faecalis. Of note, she had also had E. coli and enterococcus faecalis in her urine on January 31 when she presented to the emergency room and she was ultimately given a dose of Ciprofloxacin. She continued to be afebrile without any other signs of SIRS during her admission. CRP checked on hospital day number three was 23.4. The Gonzales catheter was exchanged on admission and then there was a trial off of it on hospital day number three, but she ended up retaining and it had to be placed back in. Her mental status seems to have slightly improved, though still not completely at baseline per her . She intermittently would use numbers inappropriately in sentences, like "give me that 7." She had not been doing that, but on the day of discharge she has been weak with physical therapy requiring two person assist and is being sent to [facility] for continued rehabilitation. She, of note, has not been allowed to drive given her memory issues. Further evaluation included vitamin B12 which was 710. TSH was slightly elevated at 6.2. Free T4 was 0.82 within normal limits. thiamine level that is still to return. Notably, she did not get any blood cultures during the admission. Her hemoglobin A1c has been elevated, it was 9.7. Toxicology was negative for acetaminophen, alcohol, and salicylates. She had a CT of the brain on March 13 which demonstrated stable age-related diffuse cerebral volume loss and chronic microvascular ischemic disease, no acute intracranial pathology. Chest x-ray demonstrated no focal air space opacification, unchanged elevation of the right hemidiaphragm, unchanged cardiac silhouette. Ammonia level was within normal limits at 33. The patient's case was curb-sided with Dr. Robert Ford of Infectious Disease about the polymicrobial Gonzales catheter colonization versus CAUTI and noted to be very difficult to tease apart which if any of the micro organisms were a true infection and would have to rely on clinical improvement and other signs. DISCHARGE MEDICATIONS: 1. Eliquis 5 mg p.o. b.i.d. 2. Aspirin 81 mg daily. 3. Atorvastatin 80 mg daily. 4. Plavix 75 mg daily. 5. Aricept 5 mg daily. 6. Lantus 15 units b.i.d. 7. Levothyroxine increased to 82.5 mcg daily. 8. Magnesium Oxide 400 mg p.o. b.i.d. 9. Metoprolol Tartrate 25 mg p.o. b.i.d. 10. Nitroglycerin 0.4 mg sublingual q.5 minutes prn chest pain. 11. Omeprazole 40 mg p.o. daily. 12. Sotalol 40 mg p.o. b.i.d. 13. Venlafaxine 75 mg p.o. daily. 14. Acetaminophen 650 mg p.o. at bedtime prn. 15. Augmentin 500 mg daily for 2 more days. 16. Calcium carbonate one tab p.o. b.i.d. 17. Chlordiazepoxide/Clidinium one capsule p.o. b.i.d. 18. Lasix 100 mg daily, she takes 2-1/2 tablets of the 40 mg tabs daily. Notably, this was held during admission. 19. Multivitamin one tab p.o. daily. 20. Potassium Chloride 40 mEq p.o. t.i.d. FOLLOW-UP: Please follow-up with Dr. Daryl Ashford after discharge from [facility]. If the patient's confusion worsens or have signs of fever, chills , tachycardia, or other signs of worsening mental status, would recommend repeating the urinalysis after exchange of Gonzales and consider fluoroquinolone which would cover both the enterococcus and pseudomonas that was not covered initially by the Ceftriaxone. DIET: Heart-healthy, carbohydrate consistent. DISPOSITION: To [facility]. CONDITION ON DISCHARGE: Improved. PHYSICAL EXAMINATION: Cardiac: No murmurs, rubs, or gallops. Abdomen: Soft, nontender, nondistended. Respiratory: Clear to auscultation bilaterally with no wheezing, rales, or rhonchi. Extremities: Warm and well-perfused. No peripheral edema. Neuro: The patient was oriented to place, situation, name, intermittently confused on year. Cranial nerves II through XII intact. [employer] strength, biceps, triceps, hip extension, and flexion all 5/5. Skin: No lesions, no rashes. TIME SPENT: Time spent on this discharge was 50 minutes. Please note that this discharge summary serves also as a history and physical for admission to [facility]. [id number]/[facility] #: [id number] [facility]
== END 2019-03-18 14:40 | DRG 700 ==
LOC: ED 17:53 → MED 20:02 → OBSVTOIN 03-14 11:00
PROVIDERS: ADMIT Student in an Organized Health Care Education/Training Program; ATTEND Internal Medicine
PROC: 0T9B70Z Drainage of Bladder with Drainage Device, Via Natural or Artificial Opening (ICD-10-PCS; principal; 2019-03-16)
DX: T83.511A Infection and inflammatory reaction due to indwelling urethral catheter, initial encounter (principal); N39.0 Urinary tract infection, site not specified; Y73.1 Therapeutic (nonsurgical) and rehabilitative gastroenterology and urology devices associated with adverse incidents; E03.9 Hypothyroidism, unspecified; E11.51 Type 2 diabetes mellitus with diabetic peripheral angiopathy without gangrene; I25.10 Atherosclerotic heart disease of native coronary artery without angina pectoris; I25.5 Ischemic cardiomyopathy; I10 Essential (primary) hypertension; F32.9 Major depressive disorder, single episode, unspecified; I48.91 Unspecified atrial fibrillation; R33.9 Retention of urine, unspecified; F03.90 Unspecified dementia, unspecified severity, without behavioral disturbance, psychotic disturbance, mood disturbance, and anxiety; F41.9 Anxiety disorder, unspecified; B96.5 Pseudomonas (aeruginosa) (mallei) (pseudomallei) as the cause of diseases classified elsewhere; K21.9 Gastro-esophageal reflux disease without esophagitis; E78.00 Pure hypercholesterolemia, unspecified; M19.90 Unspecified osteoarthritis, unspecified site; E66.9 Obesity, unspecified; L89.90 Pressure ulcer of unspecified site, unspecified stage; R41.0 Disorientation, unspecified; B95.2 Enterococcus as the cause of diseases classified elsewhere; Z79.01 Long term (current) use of anticoagulants; Z79.82 Long term (current) use of aspirin; Y92.9 Unspecified place or not applicable; Z95.1 Presence of aortocoronary bypass graft; Z86.718 Personal history of other venous thrombosis and embolism; Z79.4 Long term (current) use of insulin; Z79.02 Long term (current) use of antithrombotics/antiplatelets; Z79.890 Hormone replacement therapy; Z79.899 Other long term (current) drug therapy; Z88.8 Allergy status to other drugs, medicaments and biological substances; Z95.0 Presence of cardiac pacemaker; Z87.440 Personal history of urinary (tract) infections; Z87.891 Personal history of nicotine dependence; Z68.31 Body mass index [BMI] 31.0-31.9, adult
CPT/HCPCS: 36415; 70450; 71045; 71046; 80048; 80053; 80320; 80329; 81003; 81015; 82140; 82550; 82607; 83036; 83605; 83735; 84439; 84443; 84484; 85025; 86140; 87077; 87086; 87186; 93005; 99283; A9270-GY; G0378; G0480; G8978-GP-CK; G8978-GP-CL; G8979-GP-CJ; J0696; J1630; J2060